=== PATIENT | female | born 1945 | race Caucasian/White ===

== ENCOUNTER → 2017-04-18 13:13 | Outpatient (CLI) | payer MEDICARE, OTHER, SELFPAY ==
--- NOTE | 2017-04-18 13:16 | HPBI_ITS ---
MAMMOGRAPHY - UNILATERAL SCREENING: RIGHT BREAST REASON FOR EXAM: Female, 71 years old. Routine annual screening examination (unilateral). PERTINENT HISTORY: Personal history of breast cancer. Prior left mastectomy and breast reconstruction. TECHNIQUE: Digital unilateral breast kj (3D mammographic acquisition) in the CC and MLO projections. 2-D mediolateral oblique (MLO) and craniocaudad (CC) views of both breasts were obtained. CAD: Full Field Digital Mammography with Computer Added Detection was performed. COMPARISON: Comparison is made with prior study dated April 17, 2016 and April 14, 2015. FINDINGS: Breast Composition: The breasts are heterogeneously dense, which may obscure small masses. There are no dominant masses or suspicious calcifications. Stable benign-appearing right axillary lymph node. No other significant abnormalities are identified. There has been no significant change since the prior study. BI/UNILAT RT SCRN W/CAD IMPRESSION: Stable unilateral screening mammogram. Yearly follow-up mammogram recommended. (A) ASSESSMENT CATEGORY: BIRADS Category 2: Benign. A letter regarding these results will be sent to the patient by the facility within 30 days. Approximately 10% of breast cancers are not detected by mammography. A normal mammogram should not delay biopsy of a clinically suspicious abnormality. [id number] Electronically Signed: Calderon Olivarez MD at 14:29 EST Tel [phone], Service support ,
== END ==
PROVIDERS: Family Provider Family Medicine; PCP Family Medicine; Visit Provider Family Medicine
DX: Z12.31 Encounter for screening mammogram for malignant neoplasm of breast (principal)
CPT/HCPCS: 77061; 77067; G0279

== ENCOUNTER 2017-05-08 11:33 | Day surgery (SDC) | payer MEDICARE, OTHER, SELFPAY ==
--- NOTE | 2017-05-04 12:20 | SDCEKG_ITS ---
Test Reason : PREOP Blood Pressure : / mmHG Vent. Rate : 069 BPM Atrial Rate : 069 BPM P-R Int : 126 ms QRS Dur : 090 ms QT Int : 422 ms P-R-T Axes : -02 042 052 degrees QTc Int : 452 ms Normal sinus rhythm Normal ECG Confirmed by DYLON NICHOLS ([id number]), news copy editor YVES ROBERT ([id number]) on 05/07/2017 1:38:50 PM Referred By: Mason Link Confirmed By:DYLON NICHOLS
[2017-05-04 13:32] LABS: Thyroid Stim Hormone (TSH) 1.16 uIU/mL (0.358-3.74)
--- NOTE | 2017-05-07 22:01 | PCM.HP.BLA ---
History and Physical Date of Admission: 05/08/17 HISTORY OF PRESENT ILLNESS 71 year old woman presents for evaluation for a TBSE. She is concerned about a cutaneous horn lesion on her right lateral forehead that has increased over the last several months and has become more raised in configuration and has developed irregular borders. Denies any drainage or bleeding or trauma. She also has a personal history of left breast cancer and after mastectomy underwent breast reconstruction with a TRAM flap. The left side of the TRAM flap scar in the abdominal wall has developed intermittent pain from previous chronic stitch abscesses. She denies any trauma to her abdominal wall. She had some chronic stitch abscesses excised in this area before in 07/04. 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%, Her2 negative Elevated cholesterol Asthma Osteoarthritis Vitamin D Deficiency UTI's cataracts headaches high triglycerides hypoglycemia acquired absence left breast disproportion reconstructed left breast anemia atelectasis nonhealing surgical wound left abdominal wall seroma lower anterior abdominal wall solar elastosis nasal dorsum solar elastosis central lower lip by the labiomental crease seborrheic keratosis right orthodox painful left TRAM flap abdominal wall scar from chronic stitch abscesses PAST SURGICAL HISTORY Hysterectomy Cholecystectomy Left breast biopsies - multiple in past Achilles tendon replacements Left lower extremity fracture repair with kristy Appendectomy Left hand surgery Left breast stereotactic breast biopsy 04/23/13 cataracts Left breast mastectomy and left axillary sentinel lymph node biopsy by Dr Mercado - 05/16/13 Immediate left breast reconstruction with contralateral unipedicled TRAM flap and reconstruction abdominal wall with Strattice acellular dermal matrix graft (100 cm2) - 05/16/13 intradermal excision 7 mm solar elastosis nasal dorsum and intradermal excision 5 mm solar elastosis central lower lip by the labiomental crease and intradermal excision 5 mm seborrheic keratosis right orthodox - 03/26/14 intradermal excision 6 mm actinic lesion with atypia left ear at ante helical area by triangular fossa and intradermal excision 3 mm actinic lesion with atypia right nasal ala and excision 7 mm actinic lesion with atypia right cheek as an incisional biopsy with 2.5 cm layered closure and excision painful left TRAM flap abdominal wall scar from chronic stitch abscesses with secondary wound closure - 07/13/15 MEDICATIONS: Synthroid. Crestor. Vitamin D. ALLERGIES: Meloxicam. Gemfibrozil. Zostavax. Prednisone. Macrodantin. Dilaudid. Novocaine. Morphine. Penicillin. Sulfa. FAMILY HISTORY Father (biol.) - Has Family History of Heart Disease Mother (biol.) - Has FH Colon Cancer Mother (biol.) - Has FH Diabetes Mother (biol.) - Has FH Hypertension Father (biol.) - Has FH Heart Disease Father (biol.) - Has FH High Cholesterol Brother (full) - Has FH Diabetes Brother (full) - Has FH Heart Disease Brother (full) - Has FH High Cholesterol Sister (full) - Has FH Heart Disease Sister (full) - Has FH High Cholesterol MGF - Has FH Kidney Disease MGM - Has FH Heart Disease negative for skin cancer. FH Arthritis FH High Blood Pressure FH Kidney Disease FH Osteoporosis Mother at age 85 from colon cancer, had diabetes Father had heart disease Brother - diabetes, [place] Sisters (half) x 3 - heart disease No breast or ovarian cancer in family known SOCIAL HISTORY Patient has never smoked. 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 Eyes - has cataracts. Denies glaucoma. ENT - Denies nasal congestion and sore throat. Cardiovascular - Denies chest pain or discomfort, fatigue, lightheadedness and shortness of breath with exertion. Respiratory - Denies cough and shortness of breath. Gastrointestinal - Denies nausea, vomiting, diarrhea, constipation and bloody stools. Genitourinary - Denies blood in urine, urinary frequency, other abnormal vaginal bleeding and pelvic pain. Musculoskeletal - Denies joint pain, back pain, stiffness and muscle weakness. Has arthritis. Skin - has enlarging cutaneous horn lesion right lateral forehead. Has painful left TRAM flap abdominal wall scar contour deformity from chronic stitch abscesses. Neuro - Denies headaches and weakness. Psych - Denies anxiety and depression. Endocrine - Denies excessive urination and excessive thirst. has history of left breast cancer. Hematologic - Denies bleeding and abnormal bruising. PHYSICAL EXAMINATION General - well developed, well nourished, in no acute distress. Head - normocephalic and atraumatic. On the right lateral forehead is a cutaneous horn lesion that measures 4 mm.. It is raised in configuration with irregular borders. No ulceration. Lesion is nontender. Eyes - PERRL/EOM intact, conjunctiva and sclera clear. Ears - no suspicious lesions noted. Nose - no suspicious lesions noted at this time. Mouth - No suspicious lesions noted Neck - no masses, thyromegaly, or abnormal cervical nodes. No suspicious lesions noted Chest wall - No suspicious lesions noted Breasts - The left breast is soft and shows a well healed TRAM flap. There is a small area of firmness medially probably from fat necrosis from the TRAM flap. It continues to get softer and smaller than at her last visit. The left breast reconstruction is larger than the right breast. Right breast shows no masses. Slight Stage II ptosis present. Distance from the midclavicular line on the right to the nipple is 26 cm and from the nipple to the inframammary fold is 7 cm. The nipple areolar complex diameter is 5 cm. No inframammary intertrigo seen. No breast masses palpable on the right. No axillary adenopathy. Lungs - clear bilaterally to auscultation. Heart - regular rate and rhythm. Abdomen - normal bowel sounds; no hepatosplenomegaly no ventral,umbilical hernias or masses noted. has horizontal TRAM flap scar. on the left TRAM flap scar are painful nodules from chronic stitch abscesses. No purulent drainage. Measures 6 cm. Pulses - pulses normal in all 4 extremities. Extremities - no clubbing, cyanosis, edema, or deformity noted with normal full range of motion of all joints. No suspicious lesions noted Neuro - cranial nerves II-XII grossly intact. Skin - no rashes. Cervical nodes - no significant adenopathy. Axillary nodes - no significant adenopathy. Inguinal - no significant adenopathy. Psych - alert and cooperative; normal mood and affect; normal attention span and concentration. ASSESSMENT 1. 4 mm lesion cutaneous horn lesion right lateral forehead. 2. 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 3. Personal history of left breast cancer. 4. Disproportion reconstructed left breast. PLAN Recommend excision of this lesion right lateral forehead which can be done under local anesthesia and IV sedation. Will send the lesion to Pathology for analysis to rule out carcinoma. The initial biopsy will be full thickness since there is a cutaneous horn component to the lesion and a shave biopsy may miss a focus of carcinoma at the base. Reconstruction will be with skin graft or skin flaps. That will be determined by the frozen section. If carcinoma is present, then further excision will be done with probable skin grafting at that time. Also will excise the painful left TRAM flap abdominal wall scar contour deformity due to chronic stitch abscess granulomas with secondary wound closure. Will send tissue to Microbiology for culture. A positive culture will necessitate antibiotic therapy. If more chronic stitch abscess granulomas are found, I may decide to leave the wound open and pack with the VAC and allow the wound to heal in secondarily. Surgery will be done under local anesthesia and IV sedation on an outpatient basis. The patient was informed of the risks and complications of the procedure including alternatives to surgery. These were discussed with the patient personally. The patient voices understanding and wishes to proceed. Some of the risks and complications were included in a form from the [employer].
[2017-05-08] VITALS (10 sets, daily range): BP systolic 94–179; BP diastolic 68–98; PULSE 63–80; RESP 12–18; TEMP 36.2–37.2; O2SAT 96–100; BMI 25.5
--- NOTE | 2017-05-08 13:25 | SCAR_PTH ---
PATIENT: DEEJAY WOLF [place] [facility] [id number] AGE/SX: 71/F ROOM: RE05/08/[address]: Dr. Mason Link MD : [id number] BED: DIS: 05/09/2017 SPEC #: [id number] RECD: 05/08/17 16:14 STATUS: MARSHALL IRMA #: [id number] SHIRLEY: 05/08/17 13:[address]: Mason Link DEPT: SURGICAL PATHOLOGY RECD BY: Elisabeth Carrasco ENTERED: 05/09/17 11:11 SP TYPE: Scar OTHR DR: MD Dr. Jesus Donovan MD Tissues: CICATRIX/SCAR Procedures: Surgery Specimen Level III HEADER OPERATION: Excision painful left tram flap abdominal wall scar PRE-OP DIAGNOSIS: Painful left abdominal tram scar TISSUE SUBMITTED: Soft tissue, painful tram scar MICROSCOPIC DIAGNOSIS Soft tissue, painful scar: Skin and underlying adipose tissue with focal dermal fibrosis, consistent with scar. ERICA:smith 05/10/17 MICROSCOPIC DESCRIPTION Slides are reviewed. GROSS DESCRIPTION Received in fixative is one container labeled with the patient's name and designated soft tissue. The specimen consists of two irregular fragments of pace-yellow fibrofatty tissue ranging in size from 6 to 8 cm in greatest dimension. The largest fragment contains an ellipse of unremarkable pace skin measuring 8 x 1 cm. No cutaneous lesions are identified. Sections reveal yellow, fatty cut surfaces without areas of cyst formation, necrosis or myxoid change. Drawbench Operator Helper sections from both fragments are submitted in two cassettes as follows: 1 ? sections from largest fragment, 2 ? operations support representative sections from the smaller fragment. / AM:smith 05/09/17 TC:4 CPT: 15958
[2017-05-08] MEDS: Mupirocin Ointment 22gm Tube 1 APPLIC (13:30)
[2017-05-08] MEDS: Clindamycin 900 MG/50 ML BAG 75 MG IV (13:45)
[2017-05-08] MEDS: Bupivacaine Mpf 0.5% 30 ML VIAL (14:20)
--- NOTE | 2017-05-08 14:34 | PCM.IMDPSTOP ---
Immediate Post-Op Note Date of Procedure: 05/08/17 Primary Surgeon/Physician: Mason Link port engineer: None Pre-Operative Diagnosis: 1. 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 2. Personal history of left breast cancer. 3. Disproportion reconstructed left breast. Post-Operative Diagnosis: Same. 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 Description of Surgical Findings:: 71 year old woman presents for evaluation for a TBSE. She is concerned about a cutaneous horn lesion on her right lateral forehead that has increased over the last several months and has become more raised in configuration and has developed irregular borders. Denies any drainage or bleeding or trauma. She also has a personal history of left breast cancer and after mastectomy underwent breast reconstruction with a TRAM flap. The left side of the TRAM flap scar in the abdominal wall has developed intermittent pain from previous chronic stitch abscess granulomas. She denies any trauma to her abdominal wall. She had some chronic stitch abscesses excised in this area before in 07/04. The patient stated the lesion right lateral forehead has come off and is smooth. She would like to hold off on surgery on this lesion for now. If it comes back, will reassess at that time for excision. Today the patient underwent surgical preparation left lateral abdominal wall TRAM flap scar contour deformity with excisional debridement painful chronic stitch abscess granulomas (48 cm2). Size of defect left lateral abdominal wall area - 12 x 4 x 2 cm. Estimated Blood Loss: 25 ml. Specimen's removed: Left lateral abdominal wall TRAM flap scar contour deformity tissue to Pathology and Microbiology. Drains: None. Type of Anesthesia:: General - Admit VTE Documentation VTE Present on Admission: No VTE Mechan Device Prophylaxis: SCD's VTE Pharm Prophylaxis ordered?: Yes
--- NOTE | 2017-05-08 14:40 | OP.PN_ITS ---
Immediate Post-Op Note Date of Procedure: 05/08/17 Primary Surgeon/Physician: Mason Link production line assembler: None Pre-Operative Diagnosis: 1. 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 2. Personal history of left breast cancer. 3. Disproportion reconstructed left breast. Post-Operative Diagnosis: Same. 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 Description of Surgical Findings:: 71 year old woman presents for evaluation for a TBSE. She is concerned about a cutaneous horn lesion on her right lateral forehead that has increased over the last several months and has become more raised in configuration and has developed irregular borders. Denies any drainage or bleeding or trauma. She also has a personal history of left breast cancer and after mastectomy underwent breast reconstruction with a TRAM flap. The left side of the TRAM flap scar in the abdominal wall has developed intermittent pain from previous chronic stitch abscess granulomas. She denies any trauma to her abdominal wall. She had some chronic stitch abscesses excised in this area before in . The patient stated the lesion right lateral forehead has come off and is smooth. She would like to hold off on surgery on this lesion for now. If it comes back, will reassess at that time for excision. Today the patient underwent surgical preparation left lateral abdominal wall TRAM flap scar contour deformity with excisional debridement painful chronic stitch abscess granulomas (48 cm2). Size of defect left lateral abdominal wall area - 12 x 4 x 2 cm. Estimated Blood Loss: 25 ml. Specimen's removed: Left lateral abdominal wall TRAM flap scar contour deformity tissue to Pathology and Microbiology. Drains: None. Type of Anesthesia:: General - Admit VTE Documentation VTE Present on Admission: No VTE Mechan Device Prophylaxis: SCD's VTE Pharm Prophylaxis ordered?: Yes
[2017-05-08] MEDS: Lactated Ringers 1,000 ML 60 ML IV (14:59)
--- NOTE | 2017-05-08 20:53 | PCM.OPRPT ---
Report of Operation Date of Procedure: 05/08/17 Pre-Operative Diagnosis: 1. 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 2. Personal history of left breast cancer. 3. Disproportion reconstructed left breast. Post-Operative Diagnosis: Same. 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 Description of Surgical Findings:: 71 year old woman presents for evaluation for a TBSE. She is concerned about a cutaneous horn lesion on her right lateral forehead that has increased over the last several months and has become more raised in configuration and has developed irregular borders. Denies any drainage or bleeding or trauma. She also has a personal history of left breast cancer and after mastectomy underwent breast reconstruction with a TRAM flap. The left side of the TRAM flap scar in the abdominal wall has developed intermittent pain from previous chronic stitch abscess granulomas. She denies any trauma to her abdominal wall. She had some chronic stitch abscesses excised in this area before in 07/04. The patient stated the lesion right lateral forehead has come off and is smooth. She would like to hold off on surgery on this lesion for now. If it comes back, will reassess at that time for excision. The patient was informed of the risks and complications of the procedure including alternatives to surgery. These were discussed with the patient personally. The patient voices understanding and wishes to proceed. Some of the risks and complications were included in a form from the [employer]. Size of defect left lateral abdominal wall area - 12 x 4 x 2 cm. aviation consultant: None Type of Anesthesia:: General Specimen's removed: Left lateral abdominal wall TRAM flap scar contour deformity tissue to Pathology and Microbiology. Drains: None. Estimated Blood Loss (mL): 25 ml. Description of Procedure: Patient was taken to OR in supine position and placed under general anesthesia. Her abdominal wall was prepped and draped in the usual fashion. SCD's were placed for DVT prophylaxis. Perioperative antibiotics were given intravenously. Using xylocaine with epinephrine, the left lateral TRAM flap scar was infiltrated. After waiting 5 minutes for the anesthetic to take effect, I excised the left lateral abdominal wall TRAM flap scar contour deformity where the painful bumpy scar tissue was located down through the subcutaneous tissue until the abdominal wall fascia was seen. I palpated the subcutaneous tissue and I was able to palpate 3-4 small firm pellets indicative of chronic stitch abscess granulomas. This could certainly explain the patient's painful symptomatology. Some of this tissue was sent to Pathology for analysis to rule out carcinoma. Some of the tissue was sent to Microbiology for culture. Because of the presence of these chronic stitch abscess granulomas, it was felt that closing the wound with sutures may lead to recurrence of her painful symptomatology. Therefore it was decided to leave the wound open and proceed with postop wound care with the VAC to allow healing from the inside out. The size of the defect after excisional debridement was 12 x 4 x 2 cm or 48 cm2. Hemostasis was obtained with electrocautery. The wound was irrigated with saline. The wound was then packed with Mepitel nonadherent dressing followed by Kerlix gauze and Betadine and dry Kerlix gauze and ABD pads and tape for a compression dressing. Patient tolerated the procedure well and was sent to PACU in satisfactory condition. She will be sent upstairs for surgical observation overnight stay in the hospital. The VAC will be placed tomorrow. Once the VAC is approved and she is tolerating po analgesia, she can go home with Home Health assistance for the VAC changes. She would be sent home on antibiotics and pain medication. She will [facility]. A positive culture may necessitate antibiotic modification. Grafts/Implants Used: None. - Complications None. - Admit VTE Documentation VTE Present on Admission: No VTE Mechan Device Prophylaxis: SCD's VTE Pharm Prophylaxis ordered?: Yes Code Visit Surgery Charges CPT - 97652 ICD-10 - Z85.3, S31.109A, T75.89xS
[2017-05-08] MEDS: Clindamycin 600 MG/50 ML BAG 100 MG IV (21:31)
[2017-05-08] MEDS: Docusate Sodium 100 MG Capsule PO (21:31)
[2017-05-08] MEDS: oxyCODONE 5 MG Tablet 10 MG PO (23:50)
--- NOTE | 2017-05-09 01:00 | NURSING ---
Pt called out and states that she is having a reaction to the pain pill that she took. I informed her nurse and then went in the room to check on her. I visualized pt itching skin and hair. No rash noted. Pt states she feels like she has worms all over her. I explained that I did not have anything to give her for itching. I could give her valium to help calm her nerves which may help the itching. She did not want valium. I told her that I can call Dr Link to get her something for itching. She states Do NOT call him. I offered lotion which she refused. Reported all the findings to her nurse Nikki and she went in the room to assess her again.
[2017-05-09 01:05] VITALS: BP 186/82; PULSE 77; RESP 18; TEMP 37; O2SAT 99
--- NOTE | 2017-05-09 01:08 | NURSING ---
PT REPORT ITCHING FEELS LIKE WORMS CRAWLING OVER ME. ASSESSMENT NEGATIVE. DISCUSSED WITH PT OVER MEDICATIONS OPTIONS. RN NOTIFIED PT NEED TO CONTACT PHYSICIAN. PT REFUSED AND VERY INCENT NOT TO CALL DR BURGESS AT THIS TIME. WILL CONTINUE TO MONITOR PT.
[2017-05-09] MEDS: Lactated Ringers 1,000 ML 60 ML IV (05:50)
[2017-05-09] MEDS: Enoxaparin 30 MG/0.3 ML Syringe SC (05:50)
[2017-05-09] MEDS: Clindamycin 600 MG/50 ML BAG 100 MG IV ×2 (05:50→14:49)
[2017-05-09 05:51] VITALS: BP 164/82; PULSE 77; RESP 18; TEMP 36.8; O2SAT 99
[2017-05-09 06:51] LABS: Hematocrit 40.3 % (37-47); Hemoglobin 12.8 g/dl (12.0-15.0); Mean Corp Hgb Conc 31.8 g/gl (32-36); Mean Corpuscular Hgb 29.9 pg (27.0-32.0); Mean Corpuscular Volume 94.2 fL (81-99); Mean Platelet Vol. 12.8 fl (6.2-12.0); Platelet Count 198 K/mm3 (150-450); RBC Distribution Width CV 13.3 % (11.6-14.6); RBC Distribution Width SD 44.2 fl (35.1-43.9); Red Blood Count 4.28 M/mm3 (4.2-5.4); White Blood Count 7.6 K/mm3 (4.4-11.0)
[2017-05-09 06:55] LABS: Scan Indicated on CBC? Y/N NO
[2017-05-09 07:17] LABS: Anion Gap 7 (5-15); BUN 20 mg/dL (7-18); BUN/Creat Ratio 23.7 RATIO (10-20); Calcium,Total 8.9 mg/dL (8.5-10.1); Chloride 106 mmol/L (98-107); Creatinine, Serum 0.84 mg/dL (0.55-1.02); EST Glomerular Filtration Rate 71 mL/min (>60); Est Glom Filt Rate - Afr Amer 85 mL/min (>60); Glucose 98 mg/dL (74-106); Potassium 4.2 mmol/L (3.5-5.1); Prealbumin 16.4 mg/dL (20.0-40.0); Sodium Level 140 mmol/L (136-145)
[2017-05-09] MEDS: Docusate Sodium 100 MG Capsule PO (08:22)
[2017-05-09] MEDS: oxyCODONE 5 MG Tablet 10 MG PO (09:12)
--- NOTE | 2017-05-09 09:25 | NURSING ---
wound photo: left lower abdomen
--- NOTE | 2017-05-09 09:26 | CASEMGMT ---
Addendum entered by Rhiannon Smith 05/09/17 09:36: Received call from Lizett arteaga for [facility] and they are able to accept the patient. RN CM updated wound nurse and patient. Original Note: Received referral from wound nurse John López RN that patient will need HHC for wound vac care and states that patient has had [facility] in the past. Referral made to [facility] and am awaiting call back.
[2017-05-09 10:11] VITALS: BP 145/74; PULSE 75; RESP 16; TEMP 37.2; O2SAT 97
--- NOTE | 2017-05-09 15:20 | PN.SURG_ITS ---
Subjective: Postop #1 Patient is resting comfortably. VAC applied today. - Physical Exam General: Alert, Oriented x3 HEENT: PERRLA, EOMI Neck: Supple Lungs: Clear to auscultation Cardiovascular: Regular rate, Regular Rhythm Abdomen: Soft, Non-Distended Skin: Ulcer/ Wound - left lateral abdominal wall wound is stable. No bleeding noted. VAC applied. Neurological: Cranial nerves II-XII grossly intact Psych/Mental Status: Normal Affect, Appropriate Vital Signs Temp Pulse Resp BP Pulse Ox 98.9 F 75 16 145/74 H 97 05/09/17 10:11 05/09/17 10:11 05/09/17 10:11 05/09/17 10:11 05/09/17 10:11 Oxygen Delivery Method Room Air Weight: 173 lb 4.533 oz Body Mass Index (BMI) 25.5 Intake and Output for Last 24 Hours 05/07/17 05/08/17 05/09/17 23:59 23:59 23:59 Intake Total 2826 / 2826 1692 / 1692 Balance 2826 / 2826 1692 / 1692 Microbiology Past 72 Hours 05/08/17 14:00 Gram Stain - Final Tissue - Abdominal Wound Culture - Preliminary No growth-Final to follow Laboratory Tests Past 24 Hrs 05/09/17 05/09/17 06:18 06:18 WBC 7.6 RBC 4.28 Hgb 12.8 Hct 40.3 MCV 94.2 MCH 29.9 MCHC 31.8 L RDW 13.3 RDW Differential 44.2 H Plt Count 198 MPV 12.8 H Sodium 140 Potassium 4.2 Chloride 106 Carbon Dioxide 27.0 Anion Gap 7 BUN 20 H Creatinine 0.84 Estim Creat Clear Calc 64.20 Est GFR (MDRD) Af Amer 85 Est GFR (MDRD) Non-Af 71 BUN/Creatinine Ratio 23.7 H Glucose 98 Calcium 8.9 Prealbumin 16.4 L Medical Necessity - Tobacco Use Smoking Status: Never smoker Assessment/Plan 1. 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 2. Personal history of left breast cancer. 3. Disproportion reconstructed left breast. 4. 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 VAC applied today. To be changed three times per week at 150 mmHg continuous suction. Home Health to assist. Operative culture negative thus far. Will send home on Cleocin. Prealbumin was 16.4. Encourage nutritional supplementation with protein to help the healing process. Discharge home today. Followup office one week, 05/17/17. Wrote script for Cleocin. Wrote scripts for Percocet for pain (50 tabs) and for Valium for spasm (30 tabs) . Wrote scripts for Phenergan for nausea (30 tabs) and a refill and for Colace for constipation (60 tabs).
--- NOTE | 2017-05-09 15:29 | PCM.DC ---
You will use the following diet at home:: No restrictions, Other - encourage nutritional supplementation with protein to help the healing process. Discharge Activity: May not drive while taking narcotic pain medications., May Shower - on the days the vac is changed. Return to work on:: 06/04/17 - tentative May shower in (days): 2 - may shower on the days the vac is changed. May resume sexual activity in: No Restrictions Weight Bearing Status: Weight bearing as tolerated Call your doctor if your incision/area has: Continuous Slow Oozing, Sudden Increased Bleeding, Increased Pain/ Swelling, Increased Redness, Foul Smelling Discharge, Swelling at the incision site Call your doctor if you observe: Fever of 101 or Higher, Coldness, Increased Pain, Shortness of breath, Chest pain, Calf discomfort, Uncontrolled pain Suture Line Care: - - vac changes three times per week at 150 mmHg continuous suction. Change Dressing in (Days):: 2 - vac changes three times per week Cleanse incision/area with: Soap & Water - may cleanse the wound with soap and water on the days the vac is changed., - - may shower on the days the vac is changed. Additional Dressing/Incision Instructions:: Home Health to assist with vac changes three times per week at 150 mmHg continuous suction. May wash the wound with soap and water at the time of the vac dressing change. Allergies/Adverse Reactions: Allergies erythromycin base [Erythromycin Base] Allergy (Severe, Verified 05/02/17 13:04) Hives Penicillins Allergy (Severe, Verified 05/02/17 13:04) Hives procaine HCl [From Novocain] Allergy (Severe, Verified 05/02/17 13:04) Hives pt states was told since child not to take does not know reaction zoster vaccine live [From Zostavax (PF)] Allergy (Severe, Verified 05/02/17 13:04) Anaphylaxis gemfibrozil Adverse Reaction (Severe, Verified 05/02/17 13:04) Nausea/Vom/Diarrhea GI upset, Nausea and Vomitting hydromorphone HCl [From Dilaudid] Adverse Reaction (Severe, Verified 05/02/17 13:04) Vomiting meloxicam Adverse Reaction (Severe, Verified 05/02/17 13:04) Vomiting morphine Adverse Reaction (Severe, Verified 05/02/17 13:04) Vomiting nitrofurantoin macrocrystalline [From Macrodantin] Adverse Reaction (Severe, Verified 05/02/17 13:04) Vomiting prednisone Adverse Reaction (Severe, Verified 05/02/17 13:04) psychotic episodes Sulfa (Sulfonamide Antibiotics) Adverse Reaction (Severe, Verified 05/02/17 13:04) Vomiting fentanyl Adverse Reaction (Verified 05/02/17 13:28) Other SLOW TO WAKE UP AFTER SURGERY BAND AID Allergy (Uncoded 05/02/17 13:23) Rash Medications to take at Discharge Rosuvastatin Calcium [Crestor] 40 mg PO QHS 05/08/13 Levothyroxine Sodium [Levoxyl] 50 mcg PO DAILY 03/26/14 Cholecalciferol (Vitamin D3) [Vitamin D3] 3,000 unit PO DAILY 05/02/17 Clindamycin HCl [Cleocin] 300 mg PO TID #15 cap 05/09/17 Diazepam [Valium] 5 mg PO 4X/DAY PRN PRN #30 tab 05/09/17 Docusate Sodium [Colace] 100 mg PO BID #60 cap 05/09/17 Oxycodone HCl/Acetaminophen [Percocet 5/325] 1 - 2 tab PO 4X/DAY PRN PRN 6 Days #50 tab 05/09/17 proMETHazine tablet [Phenergan tablet] 25 mg PO 4X/DAY PRN PRN #30 tab 05/09/17 The following prescriptions were given: Diazepam [Valium] 5 mg PO 4X/DAY PRN PRN #30 tab PRN Reason: Spasms Oxycodone HCl/Acetaminophen [Percocet 5/325] 1 - 2 tab PO 4X/DAY PRN PRN 6 Days #50 tab PRN Reason: Pain proMETHazine tablet [Phenergan tablet] 25 mg PO 4X/DAY PRN PRN #30 tab PRN Reason: NAUSEA/VOMITING Docusate Sodium [Colace] 100 mg PO BID #60 cap Clindamycin HCl [Cleocin] 300 mg PO TID #15 cap Primary Care Physician: Jesus Peters MD [Primary Care Provider] - Please Follow Up With: Mason Link MD - call [phone] if any questions. When: 05/17/17 at 200pm Proposed Discharge Date: 05/09/17
--- NOTE | 2017-05-09 15:34 | DCINST_ITS ---
You will use the following diet at home:: No restrictions, Other - encourage nutritional supplementation with protein to help the healing process. Discharge Activity: May not drive while taking narcotic pain medications., May Shower - on the days the vac is changed. Return to work on:: 06/04/17 - tentative May shower in (days): 2 - may shower on the days the vac is changed. May resume sexual activity in: No Restrictions Weight Bearing Status: Weight bearing as tolerated Call your doctor if your incision/area has: Continuous Slow Oozing, Sudden Increased Bleeding, Increased Pain/ Swelling, Increased Redness, Foul Smelling Discharge, Swelling at the incision site Call your doctor if you observe: Fever of 101 or Higher, Coldness, Increased Pain, Shortness of breath, Chest pain, Calf discomfort, Uncontrolled pain Suture Line Care: - - vac changes three times per week at 150 mmHg continuous suction. Change Dressing in (Days):: 2 - vac changes three times per week Cleanse incision/area with: Soap & Water - may cleanse the wound with soap and water on the days the vac is changed., - - may shower on the days the vac is changed. Additional Dressing/Incision Instructions:: Home Health to assist with vac changes three times per week at 150 mmHg continuous suction. May wash the wound with soap and water at the time of the vac dressing change. Allergies/Adverse Reactions: Allergies erythromycin base [Erythromycin Base] Allergy (Severe, Verified 05/02/17 13:04) Hives Penicillins Allergy (Severe, Verified 05/02/17 13:04) Hives procaine HCl [From Novocain] Allergy (Severe, Verified 05/02/17 13:04) Hives pt states was told since child not to take does not know reaction zoster vaccine live [From Zostavax (PF)] Allergy (Severe, Verified 05/02/17 13: 04) Anaphylaxis gemfibrozil Adverse Reaction (Severe, Verified 05/02/17 13:04) Nausea/Vom/Diarrhea GI upset, Nausea and Vomitting hydromorphone HCl [From Dilaudid] Adverse Reaction (Severe, Verified 05/02/17 13 :04) Vomiting meloxicam Adverse Reaction (Severe, Verified 05/02/17 13:04) Vomiting morphine Adverse Reaction (Severe, Verified 05/02/17 13:04) Vomiting nitrofurantoin macrocrystalline [From Macrodantin] Adverse Reaction (Severe, Verified 05/02/17 13:04) Vomiting prednisone Adverse Reaction (Severe, Verified 05/02/17 13:04) psychotic episodes Sulfa (Sulfonamide Antibiotics) Adverse Reaction (Severe, Verified 05/02/17 13: 04) Vomiting fentanyl Adverse Reaction (Verified 05/02/17 13:28) Other SLOW TO WAKE UP AFTER SURGERY BAND AID Allergy (Uncoded 05/02/17 13:23) Rash Medications to take at Discharge Rosuvastatin Calcium [Crestor] 40 mg PO QHS 05/08/13 Levothyroxine Sodium [Levoxyl] 50 mcg PO DAILY 03/26/14 Cholecalciferol (Vitamin D3) [Vitamin D3] 3,000 unit PO DAILY 05/02/17 Clindamycin HCl [Cleocin] 300 mg PO TID #15 cap 05/09/17 Diazepam [Valium] 5 mg PO 4X/DAY PRN PRN #30 tab 05/09/17 Docusate Sodium [Colace] 100 mg PO BID #60 cap 05/09/17 Oxycodone HCl/Acetaminophen [Percocet 5/325] 1 - 2 tab PO 4X/DAY PRN PRN 6 Days #50 tab 05/09/17 proMETHazine tablet [Phenergan tablet] 25 mg PO 4X/DAY PRN PRN #30 tab 05/09/17 The following prescriptions were given: Diazepam [Valium] 5 mg PO 4X/DAY PRN PRN #30 tab PRN Reason: Spasms Oxycodone HCl/Acetaminophen [Percocet 5/325] 1 - 2 tab PO 4X/DAY PRN PRN 6 Days #50 tab PRN Reason: Pain proMETHazine tablet [Phenergan tablet] 25 mg PO 4X/DAY PRN PRN #30 tab PRN Reason: NAUSEA/VOMITING Docusate Sodium [Colace] 100 mg PO BID #60 cap Clindamycin HCl [Cleocin] 300 mg PO TID #15 cap Primary Care Physician: Jesus Peters MD [Primary Care Provider] - Please Follow Up With: Mason Link MD - call [phone] if any questions. When: 05/17/17 at 200pm Proposed Discharge Date: 05/09/17
--- NOTE | 2017-05-09 15:34 | PCM.WORK.EX ---
Work/School Excuse Work/School Excuse for:: Patient Please excuse this person from:: Work From: 05/08/17 through: 06/04/17 - tentative
[2017-05-09 15:40] VITALS: BP 152/75; PULSE 77; RESP 16; TEMP 37.1; O2SAT 95
--- NOTE | 2017-05-09 21:54 | OP.PCM_ITS ---
Report of Operation Date of Procedure: 05/08/17 Pre-Operative Diagnosis: 1. 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 2. Personal history of left breast cancer. 3. Disproportion reconstructed left breast. Post-Operative Diagnosis: Same. 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 Description of Surgical Findings:: 71 year old woman presents for evaluation for a TBSE. She is concerned about a cutaneous horn lesion on her right lateral forehead that has increased over the last several months and has become more raised in configuration and has developed irregular borders. Denies any drainage or bleeding or trauma. She also has a personal history of left breast cancer and after mastectomy underwent breast reconstruction with a TRAM flap. The left side of the TRAM flap scar in the abdominal wall has developed intermittent pain from previous chronic stitch abscess granulomas. She denies any trauma to her abdominal wall. She had some chronic stitch abscesses excised in this area before in . The patient stated the lesion right lateral forehead has come off and is smooth. She would like to hold off on surgery on this lesion for now. If it comes back, will reassess at that time for excision. The patient was informed of the risks and complications of the procedure including alternatives to surgery. These were discussed with the patient personally. The patient voices understanding and wishes to proceed. Some of the risks and complications were included in a form from the [employer]. Size of defect left lateral abdominal wall area - 12 x 4 x 2 cm. solid tire finisher: None Type of Anesthesia:: General Specimen's removed: Left lateral abdominal wall TRAM flap scar contour deformity tissue to Pathology and Microbiology. Drains: None. Estimated Blood Loss (mL): 25 ml. Description of Procedure: Patient was taken to OR in supine position and placed under general anesthesia. Her abdominal wall was prepped and draped in the usual fashion. SCD's were placed for DVT prophylaxis. Perioperative antibiotics were given intravenously. Using xylocaine with epinephrine, the left lateral TRAM flap scar was infiltrated. After waiting 5 minutes for the anesthetic to take effect , I excised the left lateral abdominal wall TRAM flap scar contour deformity where the painful bumpy scar tissue was located down through the subcutaneous tissue until the abdominal wall fascia was seen. I palpated the subcutaneous tissue and I was able to palpate 3-4 small firm pellets indicative of chronic stitch abscess granulomas. This could certainly explain the patient's painful symptomatology. Some of this tissue was sent to Pathology for analysis to rule out carcinoma. Some of the tissue was sent to Microbiology for culture. Because of the presence of these chronic stitch abscess granulomas, it was felt that closing the wound with sutures may lead to recurrence of her painful symptomatology. Therefore it was decided to leave the wound open and proceed with postop wound care with the VAC to allow healing from the inside out. The size of the defect after excisional debridement was 12 x 4 x 2 cm or 48 cm2. Hemostasis was obtained with electrocautery. The wound was irrigated with saline. The wound was then packed with Mepitel nonadherent dressing followed by Kerlix gauze and Betadine and dry Kerlix gauze and ABD pads and tape for a compression dressing. Patient tolerated the procedure well and was sent to PACU in satisfactory condition. She will be sent upstairs for surgical observation overnight stay in the hospital. The VAC will be placed tomorrow. Once the VAC is approved and she is tolerating po analgesia, she can go home with Home Health assistance for the VAC changes. She would be sent home on antibiotics and pain medication. [facility]. A positive culture may necessitate antibiotic modification. Grafts/Implants Used: None. - Complications None. - Admit VTE Documentation VTE Present on Admission: No VTE Mechan Device Prophylaxis: SCD's VTE Pharm Prophylaxis ordered?: Yes Code Visit Surgery Charges CPT - 48548 ICD-10 - Z85.3, S31.109A, T75.89xS
== END 2017-05-09 15:35 | disposition home or self-care (01) ==
LOC: SDC 11:34 → AC 11:35 → MS3 15:05
PROVIDERS: Family Provider Family Medicine; PCP Family Medicine; Visit Provider Surgery
PROC: (CPT 11042; principal; 2017-05-08 13:15)
DX: L90.5 Scar conditions and fibrosis of skin (principal); Z85.3 Personal history of malignant neoplasm of breast; Z90.12 Acquired absence of left breast and nipple; N65.1 Disproportion of reconstructed breast; E78.00 Pure hypercholesterolemia, unspecified; J45.909 Unspecified asthma, uncomplicated; M19.90 Unspecified osteoarthritis, unspecified site; E55.9 Vitamin D deficiency, unspecified; L82.1 Other seborrheic keratosis; L02.213 Cutaneous abscess of chest wall; Z79.899 Other long term (current) drug therapy; L85.8 Other specified epidermal thickening; T81.89XA Other complications of procedures, not elsewhere classified, initial encounter; Y83.8 Other surgical procedures as the cause of abnormal reaction of the patient, or of later complication, without mention of misadventure at the time of the procedure; E07.9 Disorder of thyroid, unspecified
CPT/HCPCS: 00400; 11042; 11045 ×2; 36415; 80048; 84134; 84443; 85027; 87070; 87075; 87102; 87205; 87206; 88304; 93005; J7120; J2405

== ENCOUNTER → 2017-06-22 15:07 | Outpatient (CLI) | payer MEDICARE, OTHER, SELFPAY ==
--- NOTE | 2017-06-22 15:11 | RAD_ITS ---
STUDY: X-RAY - RIGHT HAND REASON FOR EXAM: Female, 71 years old. Right hand smash injury of the fifth metacarpal TECHNIQUE: 3 view(s) of the hand. COMPARISON: None. FINDINGS: No acute fracture or dislocation. Age-related degenerative changes. Prominent degenerative change at the first carpometacarpal joint. Normal surrounding soft tissues RAD/Hand Min 3 Views IMPRESSION: No acute finding Electronically Signed: Jeremiah Mckeon DO at 17:32 EDT Tel , Service support ,
== END ==
PROVIDERS: Family Provider Family Medicine; PCP Family Medicine; Visit Provider Family Medicine
DX: M79.641 Pain in right hand (principal)
CPT/HCPCS: 73130

== ENCOUNTER → 2017-07-05 08:49 | Outpatient (CLI) | payer MEDICARE, OTHER, SELFPAY ==
[2017-07-05 11:51] LABS: Cholesterol 280 mg/dL (200); High Density Lipoprotein 44 mg/dL; Thyroid Stim Hormone (TSH) 1.47 uIU/mL (0.358-3.74); Triglycerides 118 mg/dL; Very Low Density Lipoprotein 24 mg/dL (5-40)
== END ==
PROVIDERS: Family Provider Family Medicine; PCP Family Medicine; Visit Provider Family Medicine
DX: E78.5 Hyperlipidemia, unspecified (principal); E03.9 Hypothyroidism, unspecified
CPT/HCPCS: 36415; 80061; 84443

== ENCOUNTER → 2017-09-27 07:29 | Outpatient (CLI) | payer MEDICARE, OTHER, SELFPAY ==
[2017-09-27 08:58] LABS: Hemoglobin A1c 5.6 % (4.2-6.3)
[2017-09-27 09:00] LABS: Cholesterol 266 mg/dL (200); High Density Lipoprotein 47 mg/dL; Triglycerides 152 mg/dL; Very Low Density Lipoprotein 30 mg/dL (5-40)
== END ==
PROVIDERS: Family Provider Family Medicine; PCP Family Medicine; Visit Provider Family Medicine
DX: E78.5 Hyperlipidemia, unspecified (principal); Z79.899 Other long term (current) drug therapy
CPT/HCPCS: 36415; 80061; 83036

== ENCOUNTER → 2017-11-10 07:08 | Outpatient (CLI) | payer MEDICARE, OTHER, SELFPAY ==
[2017-11-10 08:37] LABS: ALB/GLOB Ratio 0.8 RATIO (0.9-2.4); AST(SGOT) 20 U/L (15-37); Alanine Aminotransfer ALT/SGPT 22 U/L (13-56); Albumin, Serum 3.4 g/dL (3.2-5.0); Alkaline Phosphatase 105 U/L (45-117); Anion Gap 8 (5-15); BUN 14 mg/dL (7-18); BUN/Creat Ratio 15.7 RATIO (10-20); Chloride 107 mmol/L (98-107); Cholesterol 239 mg/dL (200); Creatinine, Serum 0.89 mg/dL (0.55-1.02); EST Glomerular Filtration Rate 66 mL/min (>60); Est Glom Filt Rate - Afr Amer 80 mL/min (>60); Globulin 4.1 g/dL (2.2-4.2); Glucose 94 mg/dL (74-106); High Density Lipoprotein 50 mg/dL; Potassium 4.2 mmol/L (3.5-5.1); Protein, Total 7.5 g/dL (6.4-8.2); Sodium Level 142 mmol/L (136-145); Triglycerides 169 mg/dL; Very Low Density Lipoprotein 34 mg/dL (5-40)
== END ==
PROVIDERS: Family Provider Family Medicine; PCP Family Medicine; Visit Provider Family Medicine
DX: E78.5 Hyperlipidemia, unspecified (principal)
CPT/HCPCS: 36415; 80053; 80061

== ENCOUNTER → 2018-03-16 09:10 | Outpatient (CLI) | payer MEDICARE, OTHER, SELFPAY ==
[2018-03-16 10:33] LABS: Thyroid Stim Hormone (TSH) 1.68 uIU/mL (0.358-3.74)
[2018-03-16 11:11] LABS: ALB/GLOB Ratio 0.9 RATIO (0.9-2.4); AST(SGOT) 19 U/L (15-37); Alanine Aminotransfer ALT/SGPT 25 U/L (13-56); Albumin, Serum 3.4 g/dL (3.2-5.0); Alkaline Phosphatase 97 U/L (45-117); Anion Gap 13 (5-15); BUN 15 mg/dL (7-18); BUN/Creat Ratio 18.1 RATIO (10-20); Chloride 105 mmol/L (98-107); Cholesterol 214 mg/dL (200); Creatinine, Serum 0.83 mg/dL (0.55-1.02); EST Glomerular Filtration Rate 72 mL/min (>60); Est Glom Filt Rate - Afr Amer 87 mL/min (>60); Globulin 3.9 g/dL (2.2-4.2); Glucose 87 mg/dL (74-106); High Density Lipoprotein 50 mg/dL; Potassium 4.1 mmol/L (3.5-5.1); Protein, Total 7.3 g/dL (6.4-8.2); Sodium Level 142 mmol/L (136-145); Triglycerides 140 mg/dL; Very Low Density Lipoprotein 28 mg/dL (5-40)
== END ==
PROVIDERS: Family Provider Family Medicine; PCP Family Medicine; Referring Provider Family Medicine; Visit Provider Family Medicine
DX: E78.5 Hyperlipidemia, unspecified (principal); E03.9 Hypothyroidism, unspecified
CPT/HCPCS: 36415; 80053; 80061; 84443

== ENCOUNTER → 2018-04-02 12:23 | Outpatient (CLI) | payer MEDICARE, OTHER, SELFPAY ==
--- NOTE | 2018-04-02 12:51 | BD_ITS ---
STUDY: DUAL ENERGY X-RAY ABSORPTIOMETRY / DXA REASON FOR EXAM: Female, 72 years old. Early menopause. Loss of height. TECHNIQUE: Bone Mineral Density (BMD) measurements of lumbar spine and bilateral hips were obtained. COMPARISON: Comparison is made with prior study dated December 17, 2014. FINDINGS: Lumbar Spine (L1-L4): g/cm2 (1.041) / T-score (-1.2) / Z-score (0.5) Findings are suggestive of osteopenia with a low fracture risk. Left Femur Total: g/cm2 (0.893) / T-score (-0.9) / Z-score (0.7) Left Femoral Neck: g/cm2 (0.922) / T-score (-0.8) / Z-score (1.0) Right Femur Total: g/cm2 (0.917) / T-score (-0.7) / Z-score (0.9) Right Femoral Neck: g/cm2 (0.893) / T-score (-1.0) / Z-score (0.7) The T-Scores on the most recent prior examination were: Lumbar Spine (L1-L4): There has been improvement of bone density since the previous examination. Left Femur Total: which represents an improvement of 1.4%. Right Femur Total: which represents an improvement of 0.9%. BD/Dexa Bone Density Study IMPRESSION: The patient is considered osteopenic as outlined below according to World Addi Organization (WHO) criteria with a low fracture risk. There has been improvement of bone density since the previous examination. Reference Information: The T-score is the number of standard deviations above or below the standard which is normal for young adults at their peak bone mineral density. The World Health Organization (WHO) interprets the T-scores as follows: Above -1 Normal bone density Between -1 and -2.5 Osteopenia Equal to / or below -2.5 Osteoporosis As a practical clinical guideline, osteopenia may be graded as follows: Mild -1 through -1.5 Moderate -1.6 through -2.0 Severe -2.1 through -2.4 The Z-score is the number of standard deviations above or below age-matched controls. A Z-score of less than -1.5 would be considered abnormal. References: 1. NIH Osteoporosis and Related Bone Diseases http://www.osteo.org 2. International Society for Clinical Densitometry http://www.iscd.org 3. National Osteoporosis Foundation http://www.nof.org Electronically Signed: Calderon Olivarez MD at 12:50 EST , Service support ,
== END ==
PROVIDERS: Family Provider Family Medicine; PCP Family Medicine; Referring Provider Family Medicine; Visit Provider Family Medicine
DX: N95.9 Unspecified menopausal and perimenopausal disorder (principal)
CPT/HCPCS: 77080

== ENCOUNTER → 2018-04-19 12:47 | Outpatient (CLI) | payer MEDICARE, OTHER, SELFPAY ==
[2017-08-06 14:45] VITALS: BMI 25.5
--- NOTE | 2018-04-19 13:00 | BI_ITS ---
MAMMOGRAPHY - UNILATERAL SCREENING: RIGHT BREAST REASON FOR EXAM: Female, 72 years old. Routine annual screening examination (unilateral). PERTINENT HISTORY: Personal history of breast cancer. Prior left mastectomy with a TRAM flap reconstruction. Remote right stereotactic breast biopsy. TECHNIQUE: Digital unilateral breast roxy (3D mammographic acquisition) in the CC and MLO projections. 2-D mediolateral oblique (MLO) and craniocaudad (CC) views of both breasts were obtained. CAD: Full Field Digital Mammography with Computer Added Detection was performed. COMPARISON: Comparison is made with prior study dated April 10, 2017 and April 17, 2016 FINDINGS: Breast Composition: The breasts are heterogeneously dense, which may obscure small masses. There are no dominant masses or suspicious calcifications. Stable appearance of benign appearing right axillary lymph nodes. No other significant abnormalities are identified. There has been no significant change since the prior study. BI/SCREEN MAMM (CAD) W/ROXY UNI R IMPRESSION: Stable unilateral screening mammogram. Yearly follow-up mammogram recommended. (A) ASSESSMENT CATEGORY: BIRADS Category 2: Benign. A letter regarding these results will be sent to the patient by the facility within 30 days. Approximately 10% of breast cancers are not detected by mammography. A normal mammogram should not delay biopsy of a clinically suspicious abnormality. [id number] Electronically Signed: Calderon Olivarez, at 15:25 EST , Service support ,
== END ==
PROVIDERS: Family Provider Family Medicine; PCP Family Medicine; Referring Provider Internal Medicine Hematology & Oncology; Visit Provider Internal Medicine Hematology & Oncology
DX: Z12.31 Encounter for screening mammogram for malignant neoplasm of breast (principal); Z85.3 Personal history of malignant neoplasm of breast
CPT/HCPCS: 77061; 77063; 77067; G0279

== ENCOUNTER 2018-04-27 05:09 | Emergency (ER) | payer MEDICARE, OTHER, SELFPAY ==
[2018-04-27 05:10] VITALS: BP 132/67; PULSE 102; RESP 20; TEMP 36.8; O2SAT 95; BMI 26.6
[2018-04-27 05:11] VITALS: BP 132/67; PULSE 102; RESP 20; TEMP 36.8; O2SAT 95
--- NOTE | 2018-04-27 05:20 | RAD_ITS ---
STUDY: X-RAY CHEST REASON FOR EXAM: Female, 72 years old. Cough TECHNIQUE: Frontal and lateral views of the chest. COMPARISON: 05/30/2013 FINDINGS: Left breast clips. The lungs are clear and expanded. There is no demonstrated pleural abnormality. Normal size heart. Normal mediastinum and ange. Normal visualized pulmonary arteries. Normal visualized aortic arch and descending thoracic aorta. Normal visualized thoracic spine. Normal visualized ribs, clavicles, and shoulders. Abdominal clips. RAD/Chest PA and Lateral IMPRESSION: No acute pulmonary findings. Electronically Signed: Kojo Harden MD at 6:46 EST Tel , Service support ,
[2018-04-27 06:30] VITALS: BP 143/63; PULSE 90; RESP 16; TEMP 36.7; O2SAT 93
--- NOTE | 2018-04-27 06:47 | ED.VISSUMM ---
- ER Visit Summary Date of Service: 04/27/18 Chief Complaint: I think I have the flu History of Present Illness: The patient is a 72 F who presents with an influenza-like illness. She has been ill since yesterday. She complains of temperature of 100.4, bilateral ear pain, cough, muscle and joint aches, headache, dizziness. She did see a doctor at her primary care physician's office yesterday who had attributed her symptoms to her statin. No nausea or vomiting. No diarrhea. She has not short of breath. Physical Examination: Heart rate 102 respiratory rate 20 pulse ox 95% Moist mucous membranes Heart regular rate and rhythm Lungs are clear I do not appreciate rales or rhonchi or wheezes Abdomen soft Alert Test Results: Rapid influenza negative. Two-view chest x-ray shows no acute process on my review. Emergency Department Course and Treatment: Patient presents with an influenza-like illness. Although rapid influenza is negative this test has relatively poor sensitivity and I discussed that it is still certainly possible that she has influenza. We discussed risks and benefits of Tamiflu. She states she has tolerated it well in the past. Patient was given a prescription for Tamiflu and understands to return for new or worsening symptoms. She is agreeable to this plan. All questions answered bedside. Patient discharged. Treatment Plan: [] Disposition: Discharge Impression: Influenza-like illness This note was generated with [employer] dictation software. It may contain incorrect words, spelling, and punctuation that were not noted in review of the chart prior to signing ED Disposition - Plan for ED Patient: Referrals: Jesus Peters MD [Primary Care Provider] -
--- NOTE | 2018-04-27 06:49 | ED.DEP ---
ED Disposition - Plan for ED Patient: Instructions: ED Flu Prescriptions: Oseltamivir Phosphate [Tamiflu] 75 mg PO BID #10 cap Referrals: Jesus Peters MD [Primary Care Provider] -
== END 2018-04-27 06:59 | disposition home or self-care (01) ==
PROVIDERS: Emergency Provider Emergency Medicine; Family Provider Family Medicine; PCP Family Medicine
DX: J11.1 Influenza due to unidentified influenza virus with other respiratory manifestations (principal); Z85.3 Personal history of malignant neoplasm of breast
CPT/HCPCS: 71046; 87804; 99282

== ENCOUNTER → 2018-05-25 07:25 | Outpatient (CLI) | payer MEDICARE, OTHER, SELFPAY ==
[2018-04-27 05:10] VITALS: BMI 26.6
[2018-05-25 08:32] LABS: Cholesterol 197 mg/dL (200); High Density Lipoprotein 47 mg/dL; Triglycerides 155 mg/dL; Very Low Density Lipoprotein 31 mg/dL (5-40)
== END ==
PROVIDERS: Family Provider Family Medicine; PCP Family Medicine; Referring Provider Family Medicine; Visit Provider Family Medicine
DX: E78.5 Hyperlipidemia, unspecified (principal)
CPT/HCPCS: 36415; 80061

== ENCOUNTER → 2018-08-01 | Outpatient (CLI) | payer MEDICARE, OTHER, SELFPAY ==
[2018-08-01 11:56] LABS: Absolute Lymphocyte Count 1.62 X10^3/ul (0.83-4.51); Absolute Neutrophil Count 5.4 X10^3/uL (2.0-7.7); Basophil# 0.04 X10^3/uL; Basophil% 0.5 % (0-1); Eosinophil# 0.17 X10^3/uL; Eosinophils% 2.2 % (0-5); Hematocrit 43.6 % (37-47); Lymphocyte # 1.62 X10^3/ul (4.0); Lymphocyte % 21.1 % (19-41); Mean Corp Hgb Conc 32.1 g/gl (32-36); Mean Corpuscular Volume 93.6 fL (81-99); Mean Platelet Vol. 12.1 fl (6.2-12.0); Monocyte# 0.47 X10^3/uL; Monocyte% 6.1 % (0-10); Neutrophil # 5.36 X10^3/uL (2.7-7.7); Platelet Count 262 K/mm3 (150-450); RBC Distribution Width CV 13.4 % (11.6-14.6); RBC Distribution Width SD 45.8 fl (35.1-43.9); Red Blood Count 4.66 M/mm3 (4.2-5.4); White Blood Count 7.7 K/mm3 (4.4-11.0)
[2018-08-01 11:57] LABS: POSITIVE COUNT NO; POSITIVE DIFFERENTIAL NO; POSITIVE MORPHOLOGY NO
[2018-08-01 12:52] LABS: AST(SGOT) 19 U/L (15-37); Alanine Aminotransfer ALT/SGPT 22 U/L (13-56); Albumin, Serum 3.7 g/dL (3.2-5.0); Alkaline Phosphatase 103 U/L (45-117); Anion Gap 5 (5-15); BUN 16 mg/dL (7-18); BUN/Creat Ratio 20.4 RATIO (10-20); Calcium,Total 9.2 mg/dL (8.5-10.1); Chloride 108 mmol/L (98-107); Creatinine, Serum 0.78 mg/dL (0.55-1.02); EST Glomerular Filtration Rate 77 mL/min (>60); Est Glom Filt Rate - Afr Amer 93 mL/min (>60); Globulin 3.6 g/dL (2.2-4.2); Glucose 83 mg/dL (74-106); Potassium 4.4 mmol/L (3.5-5.1); Protein, Total 7.3 g/dL (6.4-8.2); Sodium Level 141 mmol/L (136-145)
== END | disposition home or self-care (01) ==
LOC: MFPLAB 09:50
PROVIDERS: Family Provider Family Medicine; PCP Family Medicine; Referring Provider Family Medicine; Visit Provider Family Medicine
DX: R42 Dizziness and giddiness (principal)
CPT/HCPCS: 36415; 80053; 83735; 85025

== ENCOUNTER → 2018-08-29 14:46 | Outpatient (CLI) | payer MEDICARE, OTHER, SELFPAY ==
[2018-08-14 12:04] VITALS: BMI 26.6
--- NOTE | 2018-08-29 14:47 | ECHOCS_ITS ---
Reason For Study: ARRHYTHMIA Procedure This was a 2D Doppler, Color Flow transthoracic echocardiogram. Myocardial strain analysis was performed in this exam to aid in the assessment of cardiac function. Strain analysis performed using suboptimal images. The study was technically difficult. Exam performed in department. Left Ventricle Normal LV size. Left ventricular systolic function is normal. The estimated ejection fraction is 65 %. Stage 2 diastolic dysfunction. No regional wall motion abnormalities noted. Right Ventricle Normal RV size. Normal systolic function. Atria Normal left atrium. Normal right atrium. Mitral Valve Normal mitral valve. Tricuspid Valve Normal tricuspid valve. Mild tricuspid valve insufficiency. Pulmonary artery systolic pressure is 30 mmHg. Aortic Valve The aortic valve is not well visualized. Pulmonic Valve The pulmonic valve is not well visualized. Great Vessels Normal aortic root. The pulmonary artery is normal size. Normal inferior vena cava. Pericardium/Pleural No pericardial effusion. Medication 22 gauge I.V. with prn adaptor inserted into right arm. Diluted definity 4.5ml given slow IV push to enhance endocardial definition. MMode/2D Measurements & Calculations LVIDd: 3.9 cm IVSd: 0.86 cm Ao root diam: 3.2 cm LVIDs: 2.6 cm LVPWd: 0.87 cm RVDd: 3.1 cm FS: 32.2 % LAV(MOD-bp): 39.3 ml LVAd ap4: 24.8 cm2 SV(MOD-sp4): 47.2 ml LAV(MOD-bp) Indexed: 19.9 ml/m2 EDV(MOD-sp4): 70.2 ml LAV(MOD-sp2): 34.7 ml EDV(sp4-el): 72.5 ml LAV(MOD-sp4): 42.4 ml LVAs ap4: 12.8 cm2 ESV(MOD-sp4): 23.0 ml ESV(sp4-el): 22.9 ml EF(MOD-sp4): 67.3 % EF(sp4-el): 68.4 % SV(sp4-el): 49.6 ml LA A4 area: 16.7 cm2 LA dimension(2D): 3.5 cm RA A4 area: 14.3 cm2 Time Measurements MV dec time: 0.21 sec Doppler Measurements & Calculations MV E max carlo: 104.4 cm/sec Lat Peak E' Carlo: 8.0 cm/sec Med Peak E' Carlo: 8.6 cm/sec MV A max carlo: 107.4 cm/sec E/E' lat: 13.1 E/E' med: 12.1 MV E/A: 0.97 Ao V2 max: 145.1 cm/sec LV V1 max: 126.5 cm/sec PA V2 max: 86.4 cm/sec Ao max P.4 mmHg LV V1 max P.4 mmHg TR max carlo: 254.7 cm/sec TR max P.9 mmHg Interpretation Summary Normal LV size. Left ventricular systolic function is normal. The estimated ejection fraction is 65 %. Stage 2 diastolic dysfunction. Pulmonary artery systolic pressure is 30 mmHg. Contrast injection was performed. The global longitudinal strain is normal. The global longitudinal strain = -22.2 % (normal). Ordering Physician: Ermias Clifton Referring Physician: MELANIE WADE Performed By: Kayy Mancilla RDCS
== END ==
PROVIDERS: Family Provider Family Medicine; PCP Family Medicine; Referring Provider Internal Medicine Cardiovascular Disease; Visit Provider Internal Medicine Cardiovascular Disease
DX: R94.31 Abnormal electrocardiogram [ECG] [EKG] (principal)
CPT/HCPCS: 93306; Q9957; A4216; C8929

== ENCOUNTER → 2018-09-30 | Outpatient (CLI) | payer MEDICARE, OTHER, SELFPAY ==
[2018-08-14 12:04] VITALS: BMI 26.6
[2018-09-30 10:36] LABS: ALB/GLOB Ratio 0.9 RATIO (0.9-2.4); AST(SGOT) 20 U/L (15-37); Alanine Aminotransfer ALT/SGPT 23 U/L (13-56); Albumin, Serum 3.6 g/dL (3.2-5.0); Alkaline Phosphatase 109 U/L (45-117); Anion Gap 8 (5-15); BUN 16 mg/dL (7-18); BUN/Creat Ratio 16.5 RATIO (10-20); Calcium,Total 9.3 mg/dL (8.5-10.1); Chloride 103 mmol/L (98-107); Cholesterol 221 mg/dL (200); Creatinine, Serum 0.97 mg/dL (0.55-1.02); EST Glomerular Filtration Rate 60 mL/min (>60); Est Glom Filt Rate - Afr Amer 73 mL/min (>60); Free T3 2.6 pg/mL (2.18-3.98); Globulin 4.2 g/dL (2.2-4.2); Glucose 88 mg/dL (74-106); High Density Lipoprotein 46 mg/dL; Potassium 4.3 mmol/L (3.5-5.1); Protein, Total 7.8 g/dL (6.4-8.2); Sodium Level 139 mmol/L (136-145); T4 Total, Thyroxin 12.8 ug/dL (4.8-13.9); Thyroid Stim Hormone (TSH) 1.33 uIU/mL (0.358-3.74); Triglycerides 246 mg/dL; Very Low Density Lipoprotein 49 mg/dL (5-40)
== END | disposition home or self-care (01) ==
LOC: LAB 09:17
PROVIDERS: Family Provider Family Medicine; PCP Family Medicine; Referring Provider Family Medicine; Visit Provider Family Medicine
DX: E78.5 Hyperlipidemia, unspecified (principal); E03.9 Hypothyroidism, unspecified; E55.9 Vitamin D deficiency, unspecified
CPT/HCPCS: 36415; 80053; 80061; 82306; 84436; 84443; 84481

== ENCOUNTER 2019-02-17 12:28 | Emergency (ER) | payer MEDICARE, OTHER, SELFPAY ==
[2018-08-14 12:04] VITALS: BMI 26.6
[2019-02-17 12:29] VITALS: BP 163/102; PULSE 85; RESP 16; TEMP 36.4; O2SAT 99; BMI 26.6
--- NOTE | 2019-02-17 13:46 | CT_ITS ---
STUDY: CT BRAIN WITHOUT CONTRAST REASON FOR EXAM: Female, 73 years old. FALL, HEMATOMA LEFT FOREHEAD RADIATION DOSAGE (If Supplied By Facility): CTDIvol = ( 60.81 ) mGy, DLP = ( 1112.69 ) mGycm TECHNIQUE: Transaxial CT imaging of the brain was performed without administration of intravenous contrast material. Individualized dose optimization techniques were used for this CT. COMPARISON: 11/11/2011 FINDINGS: Moderate sized left frontal scalp hematoma. Normal calvarium. Normal size ventricles and extra-axial spaces for the patient''s age. Normal white matter tracts of the cerebral hemispheres. Normal basal ganglia and thalami. Normal brainstem. Normal cerebellum. There is no intracranial hemorrhage. There are no findings of an acute ischemic infarction. Normal visualized paranasal sinuses. CT/Brain/Head without Contrast IMPRESSION: Moderate sized left frontal scalp hematoma but no intracranial hemorrhage. Electronically Signed: Marcelino Ward MD at 14:44 EST Tel , Service support ,
--- NOTE | 2019-02-17 13:46 | RAD_ITS ---
STUDY: X-RAY - LEFT ELBOW REASON FOR EXAM: Female, 73 years old. PATIENT FELL. PAIN IN LEFT ELBOW WITH SWELLING AND BRUISING. TECHNIQUE: 4 view(s) of the elbow. COMPARISON: None. FINDINGS: Normal visualized humerus, radius and ulna. Normal radiocapitellar and ulnotrochlear articulations. The soft tissue structures are unremarkable. RAD/Elbow min 3 Views IMPRESSION: Normal x-ray examination of the elbow. Electronically Signed: Marcelino Ward MD at 15:16 EST Tel , Service support ,
--- NOTE | 2019-02-17 14:26 | RAD_ITS ---
STUDY: X-RAY - CERVICAL SPINE REASON FOR EXAM: Female, 73 years old. PATIENT FELL. PAIN IN RIGHT SIDE OF CERVICAL SPINE WITH STIFFNESS. TECHNIQUE: 3 view(s) of the cervical spine were obtained. COMPARISON: None FINDINGS: Normal anterior atlantoaxial articulation. Normal odontoid process. Normal cervical lordosis. There is multi-level endplate spondylosis. There is multi-level degenerative disc disease with multilevel disc space narrowing. Normal visualized intervertebral neuroforamina. The soft tissue structures are unremarkable. RAD/Cerv Spine 2 or 3 Views IMPRESSION: No acute fracture or subluxation. Electronically Signed: Marcelino Ward MD at 15:15 EST Tel , Service support ,
--- NOTE | 2019-02-17 15:20 | ED.RN ---
PT REQUESTING PAIN MEDICATION, DR. HUNT MADE AWARE.
--- NOTE | 2019-02-17 15:29 | ED.VISSUMM ---
- ER Visit Summary Date of Service: 02/17/19 Chief Complaint: [Fall with head injury] History of Present Illness: The patient is a 73 F [the emergency department after sustaining a mechanical fall this morning. Patient states that she was walking when she tripped and fell and hit her head on the ceramic floor in her home. Denies loss of consciousness. Patient complaining of pain to her left elbow as well as her left knee. Patient has been ambulatory. She also complains of some pain in her neck. She denies any paresthesias. Patient not on blood thinners. She has a history of high cholesterol and history of breast cancer.] Physical Examination: [HEENT-PERRLA, EOMI. Cranial nerves II through XII grossly intact. TMs clear. Mucous membranes moist. No adenopathy. Patient has a hematoma in the left frontal forehead without any bony depressions noted. No hemotympanum is noted. Patient has diffuse C-spine tenderness to palpation. Cardiovascular-regular rate and rhythm without murmur or ectopy Lungs-clear to auscultation, chest wall stable without crepitus or subcu emphysema Abdomen-normoactive bowel sounds, soft, nontender, no rebound or rigidity, no peritoneal signs. Extremities-intact ?4, normal range of motion, normal pulses. Left elbow-patient has some mild diffuse tenderness on palpation. She has a superficial skin abrasion. Some faint ecchymosis noted. She has good range of motion of flexion-extension. Knee-patient has a superficial skin abrasion however no bony tenderness on exam she has normal range of motion. She is neurovascular intact. Ligamentously stable. Test Results: [The scan of the brain without contrast showed a hematoma left forehead but no fractures or acute intracranial hemorrhage. X-rays of the cervical spine as well as the left elbow obtained showed no fractures] Emergency Department Course and Treatment: [Refused any pain meds into the emergency department.] Treatment Plan: [Patient to use ibuprofen or Tylenol for discomfort. Patient advised to follow-up with primary care physician in 3 to 5 days.] Disposition: [Discharged home in stable condition] Impression: [Closed head injury Cervical strain Contusion left elbow Mechanical fall] This note was generated with [employer] software. It may contain incorrect words, spelling, and punctuation that were not noted in review of the chart prior to signing ED Disposition - Plan for ED Patient: Referrals: Peters,Jesus, MD [Primary Care Provider] -
--- NOTE | 2019-02-17 15:32 | ED.DEP ---
ED Disposition - Plan for ED Patient: Instructions: FALL, Mechanical, CONCUSSION, No Wake Up, Neck Sprain/Strain, CONTUSION, Elbow Referrals: Jesus Peters MD [Primary Care Provider] - 3-5 Days
[2019-02-17 15:43] VITALS: BP 119/82; PULSE 74; RESP 16; O2SAT 98
== END 2019-02-17 15:45 | disposition home or self-care (01) ==
PROVIDERS: Emergency Provider Emergency Medicine; Family Provider Family Medicine; PCP Family Medicine
DX: S00.83XA Contusion of other part of head, initial encounter (principal); S16.1XXA Strain of muscle, fascia and tendon at neck level, initial encounter; S50.02XA Contusion of left elbow, initial encounter; W01.0XXA Fall on same level from slipping, tripping and stumbling without subsequent striking against object, initial encounter; Y93.01 Activity, walking, marching and hiking; Y92.009 Unspecified place in unspecified non-institutional (private) residence as the place of occurrence of the external cause; E78.00 Pure hypercholesterolemia, unspecified
CPT/HCPCS: 70450; 72040; 73080; 99282

== ENCOUNTER → 2019-04-10 17:11 | Outpatient (CLI) | payer MEDICARE, OTHER, SELFPAY ==
--- NOTE | 2019-04-10 17:17 | CT_ITS ---
STUDY: CT BRAIN WITHOUT CONTRAST REASON FOR EXAM: Female, 73 years old. FALL RADIATION DOSAGE (If Supplied By Facility): CTDIvol = ( 44.99 ) mGy, DLP = ( 762.36 ) mGycm TECHNIQUE: Transaxial CT imaging of the brain was performed without administration of intravenous contrast material. Individualized dose optimization techniques were used for this CT. COMPARISON: 02/17/2019 FINDINGS: Normal soft tissue structures. Normal calvarium. Normal size ventricles and extra-axial spaces for the patient''s age. Normal white matter tracts of the cerebral hemispheres. Normal basal ganglia and thalami. Normal brainstem. Normal cerebellum. There is no intracranial hemorrhage. There are no findings of an acute ischemic infarction. Normal visualized paranasal sinuses. CT/Brain/Head without Contrast IMPRESSION: Normal unenhanced CT scan of the brain. Electronically Signed: Leo Hernandez MD at 18:36 EST , Service support ,
== END ==
PROVIDERS: PCP Family Medicine; Referring Provider Family Medicine; Visit Provider Family Medicine
DX: S00.03XA Contusion of scalp, initial encounter (principal)
CPT/HCPCS: 70450

== ENCOUNTER → 2019-05-05 13:01 | Outpatient (CLI) | payer MEDICARE, OTHER, SELFPAY ==
--- NOTE | 2019-05-05 13:06 | BI_ITS ---
MAMMOGRAPHY - UNILATERAL SCREENING: RIGHT BREAST REASON FOR EXAM: Female, 73 years old. Routine annual screening examination (unilateral). PERTINENT HISTORY: Personal history of breast cancer. Prior left mastectomy with TRAM flap reconstruction. Great aunt with breast cancer. TECHNIQUE: Digital unilateral breast roxy (3D mammographic acquisition) in the CC and MLO projections. 2-D mediolateral oblique (MLO) and craniocaudad (CC) views of both breasts were obtained. CAD: Full Field Digital Mammography with Computer Added Detection was performed. COMPARISON: Comparison is made with prior examination dated April 19, 2018 and April 18, 2017. FINDINGS: Breast Composition: The breasts are heterogeneously dense, which may obscure small masses. There are no dominant masses or suspicious calcifications. Stable small benign-appearing bilateral axillary lymph nodes. No other significant abnormalities are identified. There has been no significant change since the prior study. BI/SCREEN MAMM (CAD) W/ROXY UNI R IMPRESSION: Stable unilateral screening mammogram. Yearly follow-up mammogram recommended. (A) ASSESSMENT CATEGORY: BIRADS Category 2: Benign. A letter regarding these results will be sent to the patient by the facility within 30 days. Approximately 10% of breast cancers are not detected by mammography. A normal mammogram should not delay biopsy of a clinically suspicious abnormality. [id number] Electronically Signed: Calderon Olivarez, at 14:38 EDT , Service support ,
== END ==
PROVIDERS: PCP Family Medicine; Referring Provider Family Medicine; Visit Provider Family Medicine
DX: Z12.31 Encounter for screening mammogram for malignant neoplasm of breast (principal)
CPT/HCPCS: 77063; 77067

== ENCOUNTER → 2019-06-20 09:00 | Outpatient (CLI) | payer MEDICARE, OTHER, SELFPAY ==
[2019-06-13 10:03] VITALS: BMI 26.6
--- NOTE | 2019-06-20 09:01 | MRI_ITS ---
STUDY: BILATERAL BREAST MR WITHOUT AND WITH CONTRAST REASON FOR EXAM: Female, 73 years old. Status post left mastectomy with TRAM flap reconstruction. Enlarging painful mass. TECHNIQUE: Multi-sequence multi-echo imaging of both breasts was performed with a dedicated breast coil. T1-weighted and T2-weighted images were performed before the administration of contrast. Contrast could not be administered because of no intravenous access. COMPARISON: Right mammogram dated May 05, 2019 FINDINGS: RIGHT BREAST: The breast tissue is fatty. No contrast was administered so the degree of enhancement cannot be determined. There are no abnormal enhancing masses or areas of non-mass enhancement in the right breast. LEFT BREAST: Postmastectomy and TRAM flap reconstruction changes are noted. Large circumscribed mixed signal intensity lesions within the left breast. Superiorly, this large mass measures approximately 9.5 cm x 5.5 cm. The mass extends inferiorly into 2 separate mixed signal intensity masses medially and laterally. The medial mass measures 4.7 cm x 3.5 cm and the lateral mass measures 6.2 cm x 5.7 cm. Given the circumscribed morphology of these masses and the next signal intensity with septations, these masses most likely represent postoperative seromas. An ultrasound of the left breast with percutaneous ultrasound-guided aspiration would be appropriate to further evaluate these masses. There are no enlarged or abnormal lymph nodes. There is no abnormality in the visualized regions of the chest or liver. MRI/MRI BREAST W/O CONT BILAT IMPRESSION: Normal right mammogram. Contrast was not administered. Large masses in the left breast, as outlined above, most likely representing post surgical seromas. A second look ultrasound with aspiration of these masses would be appropriate for further evaluation, as outlined above. CATEGORY: BIRADS Category 0: Incomplete. Need additional imaging evaluation. A letter regarding these results will be sent to the patient by the facility within 30 days. Electronically Signed: Santi Schwartz MD at 13:05 EDT , Service support ,
[2019-06-20 09:40] LABS: CREATININE FINGERSTICK 0.6 mg/dL (0.55-1.02); EGFR FINGERSTICK > 60.0000 mL/min (>60)
== END ==
PROVIDERS: PCP Family Medicine; Referring Provider Surgery; Visit Provider Surgery
DX: N64.4 Mastodynia (principal); N63.20 Unspecified lump in the left breast, unspecified quadrant; N65.0 Deformity of reconstructed breast; D05.12 Intraductal carcinoma in situ of left breast; Z90.12 Acquired absence of left breast and nipple; N65.1 Disproportion of reconstructed breast
CPT/HCPCS: 77047

== ENCOUNTER 2019-06-27 13:08 | Observation (INO) | payer MEDICARE, OTHER, SELFPAY ==
[2019-06-13 10:03] VITALS: BMI 26.6
--- NOTE | 2019-06-25 13:07 | EKG12_ITS ---
Test Reason : PRE OP Blood Pressure : / mmHG Vent. Rate : 081 BPM Atrial Rate : 081 BPM P-R Int : 122 ms QRS Dur : 090 ms QT Int : 378 ms P-R-T Axes : 017 043 045 degrees QTc Int : 439 ms Normal sinus rhythm Nonspecific ST abnormality Abnormal ECG Confirmed by DYLON NICHOLS ([id number]), supervising editor trailer YVES ROBERT ([id number]) on 06/30/2019 2:46:51 PM Referred By: Mason Link Confirmed By:DYLON NICHOLS
[2019-06-25 13:12] LABS: Hematocrit 43.2 % (37-47); Hemoglobin 13.6 g/dL (12.0-15.0); Mean Corp Hgb Conc 31.5 g/dL (32-36); Mean Corpuscular Hgb 29.2 pg (27.0-32.0); Mean Corpuscular Volume 92.7 fL (81-99); Mean Platelet Vol. 11.8 fl (6.2-12.0); Platelet Count 269 K/mm3 (150-450); RBC Distribution Width SD 44.2 fl (35.1-43.9); Red Blood Count 4.66 M/mm3 (4.2-5.4); White Blood Count 11.9 K/mm3 (4.4-11.0)
[2019-06-25 13:21] LABS: International Normalized Ratio 1.1; Prothrombin Time (Protime)PT. 13.2 SECONDS (11.7-14.9)
[2019-06-25 13:22] LABS: Partial Thromboplast Time 26.1 Seconds (24.1-36.2)
[2019-06-25 13:59] LABS: AST(SGOT) 21 U/L (15-37); Alanine Aminotransfer ALT/SGPT 21 U/L (13-56); Albumin, Serum 3.5 g/dL (3.2-5.0); Alkaline Phosphatase 104 U/L (45-117); Bilirubin, Direct 0.07 mg/dL (0.00-0.30); Globulin 3.9 g/dL (2.2-4.2); Protein, Total 7.4 g/dL (6.4-8.2); Thyroid Stim Hormone (TSH) 1.98 uIU/mL (0.358-3.74)
--- NOTE | 2019-06-26 23:51 | PCM.HP.BLA ---
History and Physical Date of Admission: 06/27/19 HISTORY OF PRESENT ILLNESS 73 year old woman presents for evaluation of her breast reconstruction after developing left breast cancer in 2013. She had breast reconstruction with a TRAM flap. Over the last year, she has noted increasing pain and hardness in the superior pole of her left breast reconstruction. Just recently she started developing some redness on her skin overlying the hard area superiorly. Her left breast mastectomy and reconstruction with a TRAM flap was in April,. 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 This hard painful mass involves the majority of the superior pole of her left breast reconstruction. She denies fever. She denies any drainage. MRI was done on 06/20/19 which showed large circumscribed mixed signal intensity lesions within the left breast. Superiorly, this large mass measures approximately 9.5 cm x 5.5 cm. The mass extends inferiorly into 2 separate mixed signal intensity masses medially and laterally. The medial mass measures 4.7 cm x 3.5 cm and the lateral mass measures 6.2 cm x 5.7 cm. Given the circumscribed morphology of these masses and the next signal intensity with septations, these masses most likely represent postoperative seromas. An ultrasound of the left breast with percutaneous ultrasound-guided aspiration would be appropriate to further evaluate these masses. She denies any recent infection. She presents today for further evaluation and treatment. 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 Open wound of lateral abdominal wall Osteoarthritis Personal history of breast cancer UTI (urinary tract infection) Vitamin D deficiency Neoplasm of skin of ear Neoplasm of skin of nose Right wrist fracture Essential (primary) hypertension Late effect of certain other external causes PAST SURGICAL HISTORY excision of lesion Status post transverse rectus abdominis muscle (TRAM) flap breast reconstruction Achilles tendon repair cholecystectomy hysterectomy left breast biopsy left mastectomy ALLERGIES erythromycin base [Erythromycin Base] Penicillins procaine HCl [From Novocain] zoster vaccine live [From Zostavax (PF)] gemfibrozil hydromorphone HCl [From Dilaudid] meloxicam morphine nitrofurantoin macrocrystalline [From Macrodantin] prednisone Sulfa (Sulfonamide Antibiotics) fentanyl BAND AID MEDICATIONS Levothyroxine Sodium [Levoxyl] evolocumab FAMILY HISTORY Mother -Colon cancer, Hypertension, Diabetes, Kidney disease, Heart disease Father - Heart disease, Hyperlipidemia, Kidney disease, Myocardial infarction Brother - Myocardial infarction Sister - Myocardial infarction Sister - Myocardial infarction Sister - Myocardial infarction SOCIAL HISTORY Smoking Status: Never smoker REVIEW OF SYSTEMS General - Denies fever, anorexia and weight loss. Eyes - has cataracts. Denies glaucoma. ENT - Denies nasal congestion and sore throat. Cardiovascular - Denies chest pain or discomfort, fatigue, lightheadedness and shortness of breath with exertion. Respiratory - Denies cough and shortness of breath. Gastrointestinal - Denies nausea, vomiting, diarrhea, constipation and bloody stools. Genitourinary - Denies blood in urine, urinary frequency, other abnormal vaginal bleeding and pelvic pain. Musculoskeletal - Denies joint pain, back pain, stiffness and muscle weakness. Has arthritis. Skin - no suspicious lesions. Denies skin cancer. Neuro - Denies headaches and weakness. Psych - Denies anxiety and depression. Endocrine - Denies excessive urination and excessive thirst. has history of left breast cancer. Has enlarging painful left breast reconstruction TRAM flap mass. Hematologic - Denies bleeding and abnormal bruising. PHYSICAL EXAMINATION General - well developed, well nourished, in no acute distress. Head - normocephalic and atraumatic. No suspicious lesions noted. Eyes - PERRL/EOM intact, conjunctiva and sclera clear. Ears - no suspicious lesions noted. Nose - no suspicious lesions noted at this time. Mouth - No suspicious lesions noted Neck - no masses, thyromegaly, or abnormal cervical nodes. No suspicious lesions noted. Chest wall - No suspicious lesions noted. Breasts - The left breast shows a well healed TRAM flap. On the superior aspect of the left breast reconstruction TRAM flap is a firm mass that measures 12 cm. No ulceration. No skin retraction. No skin dimpling. On the central aspect of the mass, there is some adherence to the skin causing some pressure erythema. No fluctuance. The left breast reconstruction is larger than the right breast. Right breast shows no masses. Slight Stage II ptosis present. Distance from the midclavicular line on the right to the nipple is 26 cm and from the nipple to the inframammary fold is 7 cm. The nipple areolar complex diameter is 5 cm. No inframammary intertrigo seen. No breast masses palpable on the right. No axillary adenopathy. Lungs - clear bilaterally to auscultation. Heart - regular rate and rhythm. Abdomen - normal bowel sounds; no hepatosplenomegaly no ventral,umbilical hernias or masses noted. has lower abdominal wall TRAM flap scar that is healed. Good abdominal wall contour noted. on the left TRAM flap scar laterally was an open surgical wound that has healed. Pulses - pulses normal in all 4 extremities. Extremities - no clubbing, cyanosis, edema, or deformity noted with normal full range of motion of all joints. No suspicious lesions noted Neuro - cranial nerves II-XII grossly intact. Skin - no rashes. Cervical nodes - no significant adenopathy. Axillary nodes - no significant adenopathy. Inguinal - no significant adenopathy. Psych - alert and cooperative; normal mood and affect; normal attention span and concentration. ASSESSMENT 1. 12 cm painful firm mass left breast reconstruction TRAM flap. 2. Left breast cancer. 3. Deformity reconstructed left breast. 4. Disproportion reconstructed left breast. 5. Acquired absence left breast. 6. Erythema of skin left breast reconstruction. PLAN The enlarging firm mass superior pole left breast reconstruction is probably related to her minor traumas at work and underlying fat necrosis. However, it needs to be excised to minimize any recurrence in the future involving the chest wall. The tissue will be sent to Pathology for analysis to rule out carcinoma and to Microbiology for culture. A positive culture will necessitate antibiotic therapy. Sometimes suboptimal healing of scars is due to a chronic subclinical infection. Surgery will be done under general anesthesia with a surgical observation overnight stay in the hospital. During the excision, some suction assisted lipoplasty may be needed as well. Postop will need a drain for several days and be maintained on antibiotics until the drains are removed. After healing has occurred, if there are any deformities or disproportion of the reconstructed breast as compared to the opposite right breast, then additional revision reconstruction may be warranted. One option is cohesive gel implants as she is not interested in another flap at this time. We can discuss at future visits after healing as occurred. MRI was done preoperatively on 06/20/19. It showed large circumscribed mixed signal intensity lesions within the left breast. Superiorly, this large mass measures approximately 9.5 cm x 5.5 cm. The mass extends inferiorly into 2 separate mixed signal intensity masses medially and laterally. The medial mass measures 4.7 cm x 3.5 cm and the lateral mass measures 6.2 cm x 5.7 cm. Given the circumscribed morphology of these masses and the next signal intensity with septations, these masses most likely represent postoperative seromas. An ultrasound of the left breast with percutaneous ultrasound-guided aspiration would be appropriate to further evaluate these masses. Patient was informed of the risks and complications of the procedure including alternatives to surgery. These were discussed with the patient personally. Patient voices understanding and wishes to proceed. Some of the risks and complications were included in a form from the [employer]. Essential Procedure Criteria Procedure Essential: Yes Criteria Note: On 05/06/2019 the [facility] ([facility]) Public Order signed by [facility] Director Tootie Dunham M.D., regarding the Management of Non-Essential Surgeries and Procedures for the purpose of preserving Personal Protective Equipment (PPE) and critical hospital capacity and resources within [place] went into effect as of 05/07/2019 at 5:00PM. According to the [facility] Public Order: This action will remain in full force and effect until the State of Emergency declared by the Governor no longer exists or the Director of the [facility] rescinds or modifies this Order.. This [facility] order stated all non-essential or elective surgeries and procedures that utilize PPE should be delayed unless there is undue risk to the current or future health of a patient. After reviewing the aforementioned [facility] Public Order and the patients clinical case, I have determined that the scheduled procedure meets the criteria to go forward. Risk to Patient if Procedure Delayed: Risk of rapidly worsening to severe symptoms if delayed
[2019-06-27] VITALS (15 sets, daily range): BP systolic 120–156; BP diastolic 53–72; PULSE 55–98; RESP 14–18; TEMP 36.2–37.3; O2SAT 94–100; BMI 24.3
--- NOTE | 2019-06-27 | BRBX_PTH ---
PATIENT: DEEJAY WOLF LOC: MS3 U#:[id number] AGE/SX: 73/F ROOM: MS314 RE06/27/[address]: Dr. Mason Link MD : 1945 BED: 1 DIS: 06/28/2019 SPEC #: [id number] RECD: 06/27/19 13:40 STATUS: MARSHALL RERachel #: [id number] SHIRLEY: 06/27/19 00:[address]: Mason Link DEPT: SURGICAL PATHOLOGY RECD BY: Ari Buitargo ENTERED: 06/27/19 13:41 SP TYPE: BREAST BX OTHR DR: Dr. Jesus Peters MD Tissues: Left breast, NOS Procedures: Surgery Specimen Level IV HEADER OPERATION: ERAS, revision reconstructed TRAM flap breast with excision PRE-OP DIAGNOSIS: 12 cm painful firm mass left breast reconstruction TRAM flap; left breast cancer; deformity reconstructed left breast; disproportion reconstructed left breast TISSUE SUBMITTED: Left breast MICROSCOPIC DIAGNOSIS Left breast, excision: Pieces of fibroadipose tissue with extensive fat necrosis, chronic inflammation, foreign body giant cell reaction and dystrophic calcifications. Negative for malignancy. ERICA:smith 07/01/19 COMMENT Please make reference to previous specimen ([id number]) left breast tissue, stereotactic core biopsy with diagnosis of ductal carcinoma in situ and ([id number]) left breast, mastectomy with diagnosis of focal atypical lobular hyperplasia and biopsy cavity with associated reactive changes. MICROSCOPIC DESCRIPTION Slides are reviewed. GROSS DESCRIPTION Received in fixative is one container labeled with the patient's name and designated left breast tissue TRAM flap. The specimen consists of multiple pieces of fibroadipose tissue weighing in aggregate 320 gm and measuring in aggregate 15 x 13 x 5 cm. Sections reveal focal fibrous area and focal yellowish area consistent with fat necrosis. No mass lesion is identified. [employer] Bench sections are submitted in six cassettes. / ERICA:smith 06/30/19 TC:5 CPT: 28695
[2019-06-27] MEDS: Scopolamine 1mg/72hr Patch 1 PATCH TRANSDERM. (06:15)
[2019-06-27] MEDS: Acetaminophen 500 MG Tablet 1000 MG PO (06:15)
[2019-06-27] MEDS: Gabapentin 600 MG Tablet PO (06:15)
[2019-06-27] MEDS: Lactated Ringers 1,000 ML 40 ML IV (06:32)
[2019-06-27 06:50] LABS: Bedside Glucose 93 mg/dL (70-110)
--- NOTE | 2019-06-27 09:36 | PCM.OPRPT ---
Report of Operation Date of Procedure: 06/27/19 Pre-Operative Diagnosis: 1. 12 cm painful firm mass left breast reconstruction TRAM flap. 2. Left breast cancer. 3. Deformity reconstructed left breast. 4. Disproportion reconstructed left breast. 5. Acquired absence left breast. 6. Erythema of skin left breast reconstruction. Post-Operative Diagnosis: Same. Surgery/Procedure Performed:: Revision reconstructed left breast with excision 12 cm painful firm mass deformity left breast reconstruction TRAM flap and placement AmnioFill Placental Connective Tissue Powder (1000 mg). Description of Surgical Findings:: 73 year old woman presents for evaluation of her breast reconstruction after developing left breast cancer in 2013. She had breast reconstruction with a TRAM flap. Over the last year, she has noted increasing pain and hardness in the superior pole of her left breast reconstruction. Just recently she started developing some redness on her skin overlying the hard area superiorly. Her left breast mastectomy and reconstruction with a TRAM flap was in April,. 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 This hard painful mass involves the majority of the superior pole of her left breast reconstruction. She denies fever. She denies any drainage. MRI was done on 06/20/19 which showed large circumscribed mixed signal intensity lesions within the left breast. Superiorly, this large mass measures approximately 9.5 cm x 5.5 cm. The mass extends inferiorly into 2 separate mixed signal intensity masses medially and laterally. The medial mass measures 4.7 cm x 3.5 cm and the lateral mass measures 6.2 cm x 5.7 cm. Given the circumscribed morphology of these masses and the next signal intensity with septations, these masses most likely represent postoperative seromas. An ultrasound of the left breast with percutaneous ultrasound-guided aspiration would be appropriate to further evaluate these masses. She denies any recent infection. Patient was informed of the risks and complications of the procedure including alternatives to surgery. These were discussed with the patient personally. Patient voices understanding and wishes to proceed. Some of the risks and complications were included in a form from the [employer]. I used AmnioFill Placental Connective Tissue Powder, 1000 mg. Catalog Number - [id number]. Lot Number - [id number]. Expiration - February 20, 2024. I used Jeffrey absorbable hemostat, (I used 2 vials). Reference Number - [id number]. Lot Number - [id number]. Expiration - October 17, 2023. anode adjuster: Rajeev Chino. Type of Anesthesia:: General Specimen's removed: Painful firm mass left breast reconstruction TRAM flap to Pathology and Microbiology. Drains: Emre. Estimated Blood Loss (mL): 50 ml. Description of Procedure: Patient was taken to OR in supine position and was placed under general anesthesia. The left breast was prepped and draped in the usual fashion. SCD's were placed for DVT prophylaxis. Perioperative antibiotics were given intravenously. Using xylocaine with epinephrine, the TRAM flap incision left breast was infiltrated. After waiting 5 minutes for the anesthetic to take effect, semicircular incision was made on the superior aspect of the TRAM flap scar down into the subcutaneous tissue. The firmness from fat necrosis was more extensive than clinically palpated. I dissected the firm mass off the pectoralis muscle. The firm mass extended superiorly from the anterior axillary line to the sternal area. Some liquefied material was expressed from some of the firm masses. The tissue was sent to Pathology for analysis to rule out carcinoma and to Microbiology for culture. A positive culture may necessitate antibiotic therapy. Hemostasis was obtained with electrocautery. Most of the TRAM flap from 2013 was firm and was removed. The breast wound was irrigated with Irrisept 0.05% Chlorhexidine solution followed by saline irrigation. I sprayed AmnioFill placental connective tissue powder into the base of the wound to aid in wound healing. To minimize seroma formation I sprayed 2 vials of Jeffrey absorbable hemostat into the left breast wound. I placed a size 15 Emre drain into the breast wound through a separate stab incision inferiorly. It was secured to the skin with 3-0 Nylon suture. The left breast wound was then closed in a layered fashion with 3-0 Monocryl interrupted sutures for the deep dermis and subcutaneous tissues. The skin was approximated with 3-0 V lock unidirectional barbed running subcuticular suture. This was followed by Histoacryl skin tissue adhesive. No vascular compromise was seen on the TRAM flap skin paddle. No clinical evidence of hematoma. Kerlix gauze was applied followed by Medipore tape and compression nyasia wrap. Patient tolerated the procedure well and was sent to PACU in satisfactory condition. Patient will be sent home on antibiotics and pain medication. She will keep her head elevated during the initial postoperative period. Patient will followup in a week for a wound check and for discussion of the pathology report and for discussion of the Microbiology report. A positive culture will necessitate antibiotic therapy. The drain will be removed in 2 weeks. After healing has occurred, will reassess her breast reconstruction for further revision with placement of cohesive gel implants. Grafts/Implants Used: AmnioFill Placental Connective Tissue Powder - Complications None. - Admit VTE Documentation VTE Present on Admission: No VTE Mechan Device Prophylaxis: SCD's VTE Pharm Prophylaxis ordered?: Yes Surgery Charges CPT - 08379 ICD-10 - N63.20, N64.4, D05.12, N65.0, N65.1, Z90.12, L53.9
--- NOTE | 2019-06-27 10:02 | DCINST_ITS ---
You will use the following diet at home:: No restrictions Discharge Activity: May not drive while taking narcotic pain medications., May Not Shower - until the drain is removed., - - keep head elevated. no heavy lifting. May shower in (days): 14 - after the drain is removed. May resume sexual activity in: 10-14 days Weight Bearing Status: Weight bearing as tolerated Lifting Restrictions: 20 lbs. Keep extremity elevated above heart level: - - elevate head. Call your doctor if your incision/area has: Continuous Slow Oozing, Sudden Increased Bleeding, Increased Pain/ Swelling, Increased Redness, Foul Smelling Discharge, Swelling at the incision site Call your doctor if you observe: Fever of 101 or Higher, Coldness, Increased Pain, Shortness of breath, Chest pain, Calf discomfort, Uncontrolled pain Suture Line Care: - - dry dressings every other day followed by compression nyasia wrap. Change Dressing in (Days):: 2 - dry dressings every other day followed by compression nyasia wrap. Cleanse incision/area with: - - may get incision wet in the shower after the drain is removed. Drain: Suction - juany drain to bulb suction. empty and record output daily. Allergies/Adverse Reactions: Allergies chlorhexidine Allergy (Verified 06/25/19 11:43) Itching erythromycin base Allergy (Verified 06/25/19 11:58) Hives gemfibrozil Allergy (Verified 06/25/19 11:42) PT UNSURE OF REACTION hydromorphone [From Dilaudid] Allergy (Verified 06/25/19 11:42) Nausea/Vom/Diarrhea Iodinated Contrast Media Allergy (Verified 06/25/19 11:42) Rash meloxicam [From Mobic] Allergy (Verified 06/25/19 11:58) Nausea morphine Allergy (Verified 06/25/19 11:42) Nausea/Vom/Diarrhea nitrofurantoin [From Macrodantin] Allergy (Verified 06/25/19 11:42) Vomiting Penicillins Allergy (Verified 06/25/19 11:42) Hives Sulfa (Sulfonamide Antibiotics) Allergy (Verified 06/25/19 11:42) PT UNSURE OF REACTION fentanyl Adverse Reaction (Verified 06/25/19 11:58) NEEDS FOLLOW-UP latex Adverse Reaction (Verified 06/25/19 11:39) NEEDS FOLLOW-UP prednisone Adverse Reaction (Verified 06/25/19 11:58) NEEDS FOLLOW-UP zinc Adverse Reaction (Verified 06/27/19 05:59) Upset Stomach BAND AID Allergy (Uncoded 06/13/19 10:03) Rash shingle vaccine Allergy (Uncoded 06/25/19 11:42) Vomiting Medications to take at Discharge Levothyroxine Sodium [Levoxyl] 50 mcg PO DAILY 03/26/14 evolocumab 420 mg/3.5 mL subcutaneous wearable injector 420 mg SC .1xmonth ml 08/14/18 Acyclovir [Zovirax] 800 mg PO PRN PRN 06/25/19 Clindamycin HCl [Cleocin] 300 mg PO TID #42 cap 06/27/19 Diazepam [Valium] 5 mg PO 4X/DAY PRN PRN #30 tablet 06/27/19 Docusate Sodium [Colace] 100 mg PO BID #60 cap 06/27/19 Insulin Lispro [Humalog KwikPen] 1 - 6 unit SUBCUT Q4H PRN PRN insuln.pen 06/27/19 Lactobacillus Acidophilus/Fos [Acidophilus Probiotic Tablet] 1 ea PO BID #30 tab 06/27/19 Oxycodone [Oxyir] 5 mg PO Q4H PRN PRN #40 tablet 06/27/19 proMETHazine tablet [Phenergan tablet] 25 mg PO 4X/DAY PRN PRN #30 tab 06/27/19 The following prescriptions were given: Lactobacillus Acidophilus/Fos [Acidophilus Probiotic Tablet] 1 ea PO BID #30 tab Transmission Status: Pending to [facility] #30 Clindamycin HCl [Cleocin] 300 mg PO TID #42 cap Transmission Status: Pending to [facility] #30 Docusate Sodium [Colace] 100 mg PO BID #60 cap Transmission Status: Pending to [facility] Oxycodone [Oxyir] 5 mg PO Q4H PRN PRN #40 tablet PRN Reason: Pain Score 4-5/10 Transmission Status: Sent to [facility]30 proMETHazine tablet [Phenergan tablet] 25 mg PO 4X/DAY PRN PRN #30 tab PRN Reason: Nausea Transmission Status: Pending to [facility] Diazepam [Valium] 5 mg PO 4X/DAY PRN PRN #30 tablet PRN Reason: Spasms Transmission Status: Sent to [facility] Primary Care Physician: Jesus Peters MD [Primary Care Provider] - Test Results: Test results from this visit will be discussed in further detail at your follow- up appointment, if applicable. Please Follow Up With: Mason Link MD When: one week. call [phone] for appt. Proposed Discharge Date: 06/27/19
[2019-06-27] MEDS: oxyCODONE 5 MG Tablet PO ×3 (12:26→22:32)
[2019-06-27] MEDS: Acetaminophen 325 MG Tablet PO ×3 (12:27→22:31)
--- NOTE | 2019-06-27 12:52 | SUR.PHASEII ---
PT. AND VISITOR INSTRUCTED ON HOW TO EMPTY BITA AND KEEP SUCTIONED.
[2019-06-27] MEDS: Lactated Ringers 1,000 ML 60 ML IV (15:31)
[2019-06-27] MEDS: diazePAM 5 MG Tablet PO (15:57)
[2019-06-27 20:05] LABS: Bedside Glucose 100 mg/dL (70-110)
--- NOTE | 2019-06-27 20:25 | NURSING ---
pt had called out c/o not feeling right. vss. head to toe assessment completed. pt felt that maybe bg could be low; bg 100. provided pt with a snack and assisted to brp. pt denied nausea, pain or dizziness.
[2019-06-27] MEDS: Docusate Sodium 100 MG Capsule PO (22:31)
[2019-06-28 01:57] VITALS: BP 135/73; PULSE 98; RESP 18; TEMP 37.2; O2SAT 97
[2019-06-28] MEDS: Enoxaparin 40 MG/0.4 ML Syringe SC (05:12)
[2019-06-28] MEDS: Levothyroxine 50 MCG Tablet PO (05:12)
[2019-06-28 06:53] LABS: Hemoglobin 11.5 g/dL (12.0-15.0); Mean Corp Hgb Conc 31.1 g/dL (32-36); Mean Corpuscular Hgb 29.7 pg (27.0-32.0); Mean Corpuscular Volume 95.6 fL (81-99); Mean Platelet Vol. 12.5 fl (6.2-12.0); Platelet Count 154 K/mm3 (150-450); RBC Distribution Width CV 13.3 % (11.6-14.6); RBC Distribution Width SD 46.7 fl (35.1-43.9); Red Blood Count 3.87 M/mm3 (4.2-5.4)
[2019-06-28 07:14] LABS: Anion Gap 5 (5-15); BUN 15 mg/dL (7-18); BUN/Creat Ratio 15.9 RATIO (10-20); Calcium,Total 8.8 mg/dL (8.5-10.1); Chloride 104 mmol/L (98-107); Creatinine, Serum 0.94 mg/dL (0.55-1.02); EST Glomerular Filtration Rate 62 mL/min (>60); Est Glom Filt Rate - Afr Amer 75 mL/min (>60); Glucose 109 mg/dL (74-106); Potassium 4.1 mmol/L (3.5-5.1); Prealbumin 15.4 mg/dL (20.0-40.0); Sodium Level 136 mmol/L (136-145)
[2019-06-28 08:06] VITALS: BP 133/71; PULSE 96; RESP 18; TEMP 37.1; O2SAT 96
--- NOTE | 2019-06-28 08:59 | PN.SURG_ITS ---
Subjective: Postop #1 Patient is resting comfortably. - Physical Exam Vitals/I&O's: Vital Signs Temp Pulse Resp BP Pulse Ox 98.8 F 96 18 133/71 H 96 06/28/19 08:06 06/28/19 08:06 06/28/19 08:06 06/28/19 08:06 06/28/19 08:06 Oxygen Flow Rate (L/min) 6 Oxygen Delivery Method Room Air Weight: 165 lb 2.02 oz Body Mass Index (BMI) 24.3 Intake and Output for Last 24 Hours 06/26/19 06/27/19 06/28/19 23:59 23:59 23:59 Intake Total 1705.33 / 2245.33 1302 / 1302 Output Total 173 / 453 865 / 865 Balance 1532.33 / 1792.33 437 / 437 Drainage 173 ml yesterday, 65 ml today. General: Alert, Oriented x3 HEENT: PERRLA, EOMI Oral: Moist Mucosa Neck: Supple Abdomen: Soft, Non-Distended Skin: Incision - left breast incision is dry and intact. No clinical evidence of hematoma. Neurological: Cranial nerves II-XII grossly intact Psych/Mental Status: Normal Affect, Appropriate Microbiology Past 72 Hours 06/27/19 09:03 Other - Other Gram Stain - Final Laboratory Results 06/27/19 19:59: POC Glucose 100 06/28/19 06:25: WBC 12.0 H, RBC 3.87 L, Hgb 11.5 L, Hct 37.0, MCV 95.6, MCH 29.7, MCHC 31.1 L, RDW Std Deviation 46.7 H, RDW Coeff of Marilou 13.3, Plt Count 154, MPV 12.5 H 06/28/19 06:25: Sodium 136, Potassium 4.1, Chloride 104, Carbon Dioxide 27.0, Anion Gap 5, BUN 15, Creatinine 0.94, Estim Creat Clear Calc 55.70, Est GFR (MDRD) Af Amer 75, Est GFR (MDRD) Non-Af 62, BUN/Creatinine Ratio 15.9, Glucose 109 H, Calcium 8.8, Prealbumin 15.4 L Current Medications Acetaminophen (Tylenol) 325 mg PO Q4H PRN PRN PRN Reason: Pain Score 1-1010 Last Admin: 06/27/19 22:31 Dose: 325 mg Documented by: Acyclovir (Zovirax) 800 mg PO BID PRN PRN PRN Reason: herpes simplex Diazepam (Valium) 5 mg PO 4X/DAY PRN PRN PRN Reason: SPASMS Last Admin: 06/27/19 15:57 Dose: 5 mg Documented by: Docusate Sodium (Colace) 100 mg PO BID [facility] Last Admin: 06/28/19 08:05 Dose: Not Given Documented by: Enoxaparin Sodium (Lovenox) 40 mg SC DAILY@0600 [facility] Last Admin: 06/28/19 05:12 Dose: 40 mg Documented by: Hydromorphone HCl (Dilaudid Inj) 0.5 mg IV Q4H PRN PRN PRN Reason: Pain Score 6-10/10 Sodium Chloride () 250 mls @ 15 mls/hr IV .[id number] PRN PRN Reason: Saline Flush Sodium Chloride () 250 mls @ 15 mls/hr IV .[id number] PRN PRN Reason: Additional IVPB Infusion Clindamycin Phosphate 600 mg/ (Dextrose) 54 mls @ 100 mls/hr IV Q8 [facility] Last Infusion: 06/28/19 05:43 Dose: Infused Documented by: Lactated Ringer's () 1,000 mls @ 60 mls/hr IV .[id number] [facility] Last Infusion: 06/28/19 06:16 Dose: 60 mls/hr Documented by: Insulin Human Lispro (Humalog Kwikpen (Bkc)) 1 - 6 unit SC Q4H PRN PRN; Protocol PRN Reason: BG>/= 180, SEE PROTOCOL Levothyroxine Sodium (Synthroid) 50 mcg PO DAILY@0600 [facility] Last Admin: 06/28/19 05:12 Dose: 50 mcg Documented by: Nutritional Formula ([place] - [place] Flavor) 1 packet PO BIDCM [facility] Last Admin: 06/28/19 08:04 Dose: Not Given Documented by: Ondansetron HCl (Zofran) 4 mg IV Q6H PRN PRN PRN Reason: NAUSEA Oxycodone HCl (Oxyir) 5 mg PO Q4H PRN PRN PRN Reason: PAIN SCORE 0-10/10 Last Admin: 06/27/19 22:32 Dose: 5 mg Documented by: Promethazine HCl (Phenergan Tablet) 25 mg PO Q4H PRN PRN PRN Reason: NAUSEA/VOMITING Sodium Chloride () 10 - 40 ml IV UD PRN PRN Reason: SALINE FLUSH Medical Necessity - Tobacco Use Smoking Status: Never smoker Tobacco Use: Non-smoker Assessment/Plan All Active Problems (Last Reviewed 06/15/19 @ 21:[address] Mason Link MD) Erythema of skin (Acute) Breast pain, left (Acute) Deformity of reconstructed breast (Acute) Abnormal electrocardiogram (Acute) Essential (primary) hypertension (Ruled-out) 1. 12 cm painful firm mass left breast reconstruction TRAM flap. 2. Left breast cancer. 3. Deformity reconstructed left breast. 4. Disproportion reconstructed left breast. 5. Acquired absence left breast. 6. Erythema of skin left breast reconstruction. 7. s/p revision reconstructed left breast with excision 12 cm painful firm mass deformity left breast reconstruction TRAM flap. Feeling better today. She is more steady on her feet with ambulation. She is tolerating po analgesia. Discharge home today. Will pull drain in the office. Incision is dry and intact. No clinical evidence of hematoma. Prealbumin was 15.4. Encourage nutritional supplementation with protein to help the healing process. Continue nyasia wrap for compression. Keep head elevated. Followup one week. Her scripts have been picked up yesterday after the surgery (Cleocin, Acidophilus Probiotic, OxyIR, Valium, Phenergan, and Colace).
== END 2019-06-28 10:24 | disposition home or self-care (01) ==
LOC: MS3 13:59 → SDC 14:22 → MS3 14:23
PROVIDERS: Anesthesiology; Admitting Provider Surgery; PCP Family Medicine; Referring Provider Surgery; Visit Provider Surgery
PROC: (CPT 19380; principal; 2019-06-27 07:00)
DX: N65.1 Disproportion of reconstructed breast (principal); N64.4 Mastodynia; T85.49XA Other mechanical complication of breast prosthesis and implant, initial encounter; Y83.8 Other surgical procedures as the cause of abnormal reaction of the patient, or of later complication, without mention of misadventure at the time of the procedure; N63.20 Unspecified lump in the left breast, unspecified quadrant; L53.9 Erythematous condition, unspecified; M19.90 Unspecified osteoarthritis, unspecified site; E03.9 Hypothyroidism, unspecified; E78.5 Hyperlipidemia, unspecified; R94.31 Abnormal electrocardiogram [ECG] [EKG]; J45.909 Unspecified asthma, uncomplicated; Z86.2 Personal history of diseases of the blood and blood-forming organs and certain disorders involving the immune mechanism; Z79.899 Other long term (current) drug therapy; Z90.12 Acquired absence of left breast and nipple; I10 Essential (primary) hypertension; R50.82 Postprocedural fever; R05 Cough; R35.0 Frequency of micturition; Z86.000 Personal history of in-situ neoplasm of breast
CPT/HCPCS: 19380; 36415; 71045; 80048; 80053; 80076; 81001; 82962; 83605; 83735; 84134; 84443; 85025; 85027; 85610; 85730; 87040; 87070; 87075; 87086; 87102; 87205; 87206; 87635; 88305; 93005; 96365; 96366; 96372; 99218; 99251; 99285; J7120; A4216; G0378; G0379; G0463; J0330; J2405; U0002

== ENCOUNTER 2019-06-28 19:49 | Emergency (ER) | payer MEDICARE, OTHER, SELFPAY ==
[2019-06-27 14:04] VITALS: BMI 24.3
[2019-06-28 19:51] VITALS: BP 149/72; PULSE 109; RESP 18; TEMP 37.4; O2SAT 93; BMI 32.3
--- NOTE | 2019-06-28 20:05 | EKG12_ITS ---
Test Reason : FEVER Blood Pressure : / mmHG Vent. Rate : 095 BPM Atrial Rate : 095 BPM P-R Int : 122 ms QRS Dur : 086 ms QT Int : 338 ms P-R-T Axes : -15 043 041 degrees QTc Int : 424 ms Normal sinus rhythm Low voltage QRS Nonspecific ST and T wave abnormality Abnormal ECG When compared with ECG of 25-JUN-2019 13:25, MANUAL COMPARISON REQUIRED, DATA IS UNCONFIRMED Confirmed by SEKOU ALBERTO, RIAZ ([id number]), editorial project manager YVES ROBERT ([id number]) on 07/08/2019 3:51:17 PM Referred By: BERRY Confirmed By:RIAZ SAPP MD
[2019-06-28 20:15] VITALS: O2SAT 96
[2019-06-28 20:17] VITALS: BP 149/72; PULSE 109; RESP 18; TEMP 37.4; O2SAT 96
--- NOTE | 2019-06-28 20:18 | ED.DCSUM_ITS ---
History of Present Illness Chief Complaint: Fever Informant: Patient Onset: Today Context: Sudden Onset Timing: Continuous - Documented fever 101.8, productive cough Quality: Respiratory symptoms Location: Productive cough Current Severity: Mild Maximum Severity: Moderate Worsened by: Unknown Relieved by: Nothing Associated Symptoms: Productive cough and documented fever Narrative: Patient is a 73-year-old woman who was operated on yesterday for deformity and complications of left trans-rectus abdominal muscle flap to the left breast. She was discharged to home today. Case was performed under general anesthesia. She contacted the surgeon of record, Dr. Mason Reyes. He recommended she come to the emergency department. Her only contact to anyone that may have been ill is weekly when she goes to the grocery store. She states when she goes outside she does wear a mask. She states she is a non-smoker. She denies history of lung problems. She does report increased urination. She denies dysuria, urgency or hematuria. She denies lower abdominal pain or back pain. She states the Rajendra-Purdy drain is bloody fluid. 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 (4) Hyperlipidemia Status: Chronic Past Medical History - Allergies and Home Meds Allergies/Adverse Reactions: Allergies chlorhexidine Allergy (Verified 06/28/19 19:54) Itching erythromycin base Allergy (Verified 06/28/19 19:54) Hives gemfibrozil Allergy (Verified 06/28/19 19:54) PT UNSURE OF REACTION hydromorphone [From Dilaudid] Allergy (Verified 06/28/19 19:54) Nausea/Vom/Diarrhea Iodinated Contrast Media Allergy (Verified 06/28/19 19:54) Rash meloxicam [From Mobic] Allergy (Verified 06/28/19 19:54) Nausea morphine Allergy (Verified 06/28/19 19:54) Nausea/Vom/Diarrhea nitrofurantoin [From Macrodantin] Allergy (Verified 06/28/19 19:54) Vomiting Penicillins Allergy (Verified 06/28/19 19:54) Hives Sulfa (Sulfonamide Antibiotics) Allergy (Verified 06/28/19 19:54) PT UNSURE OF REACTION fentanyl Adverse Reaction (Verified 06/28/19 19:54) NEEDS FOLLOW-UP latex Adverse Reaction (Verified 06/28/19 19:54) NEEDS FOLLOW-UP prednisone Adverse Reaction (Verified 06/28/19 19:54) NEEDS FOLLOW-UP zinc Adverse Reaction (Verified 06/28/19 19:54) Upset Stomach BAND AID Allergy (Uncoded 06/28/19 19:54) Rash shingle vaccine Allergy (Uncoded 06/28/19 19:54) Vomiting Primary Care Physician: Jesus Peters MD [Primary Care Provider] - Prior records reviewed: Yes Surgical History: cholecystectomy, hysterectomy, - - Bilateral Achilles tendon surgery Lives: Alone Smoking Status: Never smoker Alcohol: None Drugs: None Review of Systems General: Reports: Chills, Fever, Malaise. Denies: Subjective, Sweats, Weight loss Eyes: Denies: Visual changes - bilaterally, Blurred Vision - bilaterally ENT: Denies: Bilateral ear pain, Rhinorrhea, Sore throat Cardiovascular: Denies: Chest pain, Palpitations Respiratory: Reports: Cough, Sputum. Denies: Dyspnea, Dyspnea on exertion, Orthopnea, Paroxysmal nocturnal dyspnea Gastrointestinal: Denies: Abdominal pain, Nausea, Vomiting, Diarrhea, Melena, Hematochezia Genitourinary: Reports: Frequency. Denies: Dysuria, Hematuria Musculoskeletal: Denies: Myalgias, Arthralgias, Neck pain, Back pain, Swelling, Extremity Pain, -, - Skin: Reports: Wounds - Breast incision site according the patient looks good. There is no drainage. There is a Rajendra-Purdy drain noted. The fluid in the Rajendra-Purdy drain is bloody but not purulent.. Denies: Rash Neurological: Denies: Headache, Weakness Hematologic: Denies: Easy bruising, Easy bleeding Physical Exam Vital Signs/Narrative: Vital Signs Temp Pulse Resp BP Pulse Ox 06/28/19 20:15 96 06/28/19 19:51 99.3 F H 109 H 18 149/72 H 93 Inital Vital Signs reviewed: Yes General: Well nourished, Well developed, No Acute Distress Head: Normocephalic, Atraumatic Eyes: Perrl, EOMI. Negative for: Pale conjunctiva, Scleral icterus ENT: Moist mucous membranes, No rhinorrhea Neck: Supple, Nontender, No lymphadenopathy, No JVD Cardiovascular: Regular rhythm, No murmurs, Normal S1, Normal S2, Tachycardia Respiratory: No distress, Chest nontender, Rales - Bilateral rales posteriorly with possible egophony. There is increased vocal fremitus.. Negative for: CTA bilaterally Abdomen: Soft, Nontender, Nondistended, Normal bowel sounds Rectal: Deferred Back: Nontender, Normal Inspection. Negative for: CVA tenderness, Spinal tenderness Extremities: Nontender, No edema, - - There is no asymmetry, swelling, discoloration, leg vein distention, palpable cords or tenderness along the distribution of the deep venous system.. Negative for: Tenderness, Edema Skin: Normal color, No rash, - - Vision sight is intact. There is no erythema. There is no warmth. There is no induration or fluctuance.. Negative for: Cyanosis, Diaphoresis, Jaundice, No Trauma Neurological: Alert, Oriented x3, Cranial nerves II-XII grossly intact, Normal Strength, Normal Sensation, Normal Gait Psychological: Normal affect Diagnostic/Tx/Re-eval Chest X-Ray - ED: 1 View, Read by ED Physician, Normal, Heart, Lungs, Mediastinum, Bony Structures, No Acute Disease, - - X-ray was compared to most recent x-ray performed on June 20, 2019 Impressions Chest X-Ray 06/28/19 20:51 IMPRESSION: No acute pulmonary findings. Electronically Signed: Kojo Harden MD at 21:26 EDT Tel , Service support , 06/28/19 20:51 Chest 1 View (Portable) [RAD] Stat Laboratory Results 06/28/19 06/28/19 06/28/19 20:28 20:28 20:28 WBC RBC Hgb Hct MCV MCH MCHC RDW Std Deviation RDW Coeff of Marilou Plt Count MPV Immature Gran % (Auto) Neut % (Auto) Lymph % (Auto) [place] % (Auto) Eos % (Auto) Baso % (Auto) Absolute Neuts (auto) Absolute Lymphs (auto) Nucleated RBC % PT 14.0 INR 1.1 APTT 22.8 L Sodium 139 Potassium 4.0 Chloride 104 Carbon Dioxide 30.0 Anion Gap 5 BUN 13 Creatinine 1.13 H Estim Creat Clear Calc 46.34 Est GFR (MDRD) Af Amer 61 Est GFR (MDRD) Non-Af 50 L BUN/Creatinine Ratio 11.5 Glucose 117 H Lactic Acid Calcium 9.4 Total Bilirubin 0.50 AST 20 ALT 24 Alkaline Phosphatase 83 Total Protein 7.1 Albumin 3.1 L Globulin 4.0 Albumin/Globulin Ratio 0.8 L Urine Color Urine Clarity Urine pH Ur Specific Baxter Urine Protein Urine Glucose (UA) Urine Ketones Urine Occult Blood Urine Nitrite Urine Bilirubin Urine Urobilinogen Ur Leukocyte Esterase Urine RBC Urine WBC Ur Squamous Epith Cells Urine Bacteria Urine Mucus COVID-19 (JAYASHREE) Cancelled 06/28/19 06/28/19 06/28/19 20:30 21:10 21:10 WBC 11.2 H RBC 3.87 L Hgb 11.6 L Hct 36.8 L MCV 95.1 MCH 30.0 MCHC 31.5 L RDW Std Deviation 46.0 H RDW Coeff of Marilou 13.3 Plt Count 214 MPV 11.5 Immature Gran % (Auto) 0.500 Neut % (Auto) 75.0 H Lymph % (Auto) 13.5 L [place] % (Auto) 6.7 Eos % (Auto) 3.7 Baso % (Auto) 0.6 Absolute Neuts (auto) 8.4 H Absolute Lymphs (auto) 1.52 Nucleated RBC % 0 PT INR APTT Sodium Potassium Chloride Carbon Dioxide Anion Gap BUN Creatinine Estim Creat Clear Calc Est GFR (MDRD) Af Amer Est GFR (MDRD) Non-Af BUN/Creatinine Ratio Glucose Lactic Acid 0.7 Calcium Total Bilirubin AST ALT Alkaline Phosphatase Total Protein Albumin Globulin Albumin/Globulin Ratio Urine Color Straw Urine Clarity Clear Urine pH 5.0 Ur Specific Baxter 1.015 Urine Protein Negative Urine Glucose (UA) Normal Urine Ketones Negative Urine Occult Blood Negative Urine Nitrite Negative Urine Bilirubin Negative Urine Urobilinogen Normal Ur Leukocyte Esterase Negative Urine RBC 0 SEEN Urine WBC 0 SEEN Ur Squamous Epith Cells 0-5 SEEN Urine Bacteria 0 SEEN Urine Mucus 0 SEEN COVID-19 (JAYASHREE) Since work-up is unremarkable. There is slight elevation white count, which is insignificant and nonspecific. Dr. Mason Romero was paged since he sent the patient into the emergency department - EKG Initial EKG Interpretation: Sinus Rhythm - Sinus rhythm with a ventricular rate of 95. VA interval 122 ms. QRS duration 86 ms. QT duration 338 ms. [place] is normal. There is artifact that the computer is reading is nonspecific ST-T wave abnormality. Voltage is borderline. - Medical Decision Making Patient presents with postop fever. This may represent pneumonia, COVID, atelectasis, urinary tract infection since she reports frequency. Sepsis work-up was initiated. Dr. Link was paged. I am aware that he looked at patient's chart. He is not return to pages. Since there is no obvious source and she was discharged with antibiotics will discharge to home to follow-up with Dr. Link first part of the coming week. Patient's COVID test is still pending. If positive will contact patient. Patient was informed even if her COVID test is positive she is not a candidate for hospitalization. She informed me that she was not tested prior to surgery. She states she was told that she would be tested prior to surgery. ED Disposition - Plan for ED Patient: Disposition: Home or Assisted Living Diagnosis: Postoperative fever Instructions: ED FUO Adult Referrals: Jesus Peters MD [Primary Care Provider] - As Needed Mason Link MD [STAFF PHYSICIAN] - 1-2 Days if not improving Additional Instructions: Continue to use her incentive spirometer every 1-2 hours while awake.
[2019-06-28 20:21] VITALS: TEMP 37.8
--- NOTE | 2019-06-28 20:40 | ED.RN ---
Some labs were drawn by Denise Savage when she attempted iv status x 2. Obtained urine sample, ekg and covid sample taken and then x-ray for portable. I will then return to place iv.
--- NOTE | 2019-06-28 20:51 | RAD_ITS ---
STUDY: X-RAY CHEST REASON FOR EXAM: Female, 73 years old. fever, recent procedure to left breast with drain tube TECHNIQUE: Single frontal view of the chest. COMPARISON: 04/27/2018 FINDINGS: Drain overlying the left breast. Left breast clips. The lungs are clear and expanded. There is no demonstrated pleural abnormality. Normal size heart. Normal mediastinum and ange. Normal visualized pulmonary arteries. Normal visualized aortic arch and descending thoracic aorta. Normal visualized thoracic spine. Normal visualized ribs, clavicles, and shoulders. There is no demonstrated abnormality of the visualized soft tissue structures of the upper abdomen. RAD/Chest 1 View (Portable) IMPRESSION: No acute pulmonary findings. Electronically Signed: Kojo Harden MD at 21:26 EDT Tel , Service support ,
[2019-06-28 20:56] LABS: Bacteria 0 SEEN /hpf (None Seen); Mucous, Urine 0 SEEN /hpf (<or=2+); Red Blood Cells-Urine 0 SEEN /hpf (0-5); White Blood Cells 0 SEEN /hpf (0-5)
[2019-06-28 20:59] LABS: International Normalized Ratio 1.1; Partial Thromboplast Time 22.8 Seconds (24.1-36.2)
[2019-06-28 21:04] LABS: ALB/GLOB Ratio 0.8 RATIO (0.9-2.4); AST(SGOT) 20 U/L (15-37); Alanine Aminotransfer ALT/SGPT 24 U/L (13-56); Albumin, Serum 3.1 g/dL (3.2-5.0); Alkaline Phosphatase 83 U/L (45-117); Anion Gap 5 (5-15); BUN 13 mg/dL (7-18); BUN/Creat Ratio 11.5 RATIO (10-20); Calcium,Total 9.4 mg/dL (8.5-10.1); Chloride 104 mmol/L (98-107); Creatinine, Serum 1.13 mg/dL (0.55-1.02); EST Glomerular Filtration Rate 50 mL/min (>60); Est Glom Filt Rate - Afr Amer 61 mL/min (>60); Estimated Creatinine Clearance 46.34 ml/min; Glucose 117 mg/dL (74-106); Protein, Total 7.1 g/dL (6.4-8.2); Sodium Level 139 mmol/L (136-145)
[2019-06-28 21:15] VITALS: BP 149/72; PULSE 88; RESP 18; TEMP 37.8; O2SAT 96
[2019-06-28 21:16] LABS: Color, Urine Straw (Yellow); Glucose, Dipstick Normal (Normal); Ketone-Dipstick Negative (Negative); Leukocyte Esterase-Dipstick Negative /ul (Negative); Nitrite-Dipstick Negative (Negative); Occult Blood-Urine Negative /ul (Negative); Protein-Dipstick Negative (Negative); Specific Gravity, Urine 1.015 (1.002-1.030); Urine Bilirubin Dipstick Negative (Negative); Urine Clarity Clear (Clear); Urine Urobilinogen Normal (Normal)
[2019-06-28 21:18] LABS: Squamous Epithelial Cells - UA 0-5 SEEN /hpf (5-10)
[2019-06-28 21:20] LABS: Absolute Lymphocyte Count 1.52 X10^3/uL (0.83-4.51); Absolute Neutrophil Count 8.4 X10^3/uL (2.0-7.7); Basophil# 0.07 X10^3/uL; Basophil% 0.6 % (0-1); Eosinophil# 0.42 X10^3/uL; Eosinophils% 3.7 % (0-5); Hematocrit 36.8 % (37-47); Hemoglobin 11.6 g/dL (12.0-15.0); Lymphocyte # 1.52 X10^3/ul (4.0); Lymphocyte % 13.5 % (19-41); Mean Corp Hgb Conc 31.5 g/dL (32-36); Mean Corpuscular Volume 95.1 fL (81-99); Mean Platelet Vol. 11.5 fl (6.2-12.0); Monocyte# 0.75 X10^3/uL; Monocyte% 6.7 % (0-10); NRBC Flagged by Analyzer 0 % (0-5); Neutrophil # 8.42 X10^3/uL (2.7-7.7); Platelet Count 214 K/mm3 (150-450); RBC Distribution Width CV 13.3 % (11.6-14.6); Red Blood Count 3.87 M/mm3 (4.2-5.4); White Blood Count 11.2 K/mm3 (4.4-11.0)
[2019-06-28 21:41] LABS: Lactic Acid 0.7 mmol/L (0.4-1.9)
[2019-06-28 22:17] VITALS: BP 135/70; PULSE 90; RESP 18; TEMP 38.1; O2SAT 96
== END 2019-06-28 22:28 | disposition home or self-care (01) ==
PROVIDERS: Emergency Provider Emergency Medicine; PCP Family Medicine
DX: R50.82 Postprocedural fever (principal); R05 Cough; R35.0 Frequency of micturition; E78.5 Hyperlipidemia, unspecified; Z86.000 Personal history of in-situ neoplasm of breast; Z79.899 Other long term (current) drug therapy
CPT/HCPCS: 71045; 80053; 81001; 83605; 85025; 85610; 85730; 87040; 87086; 87635; 93005; 99284; 99285; G2023; A4216; U0002

== ENCOUNTER → 2019-07-02 14:11 | Outpatient (CLI) | payer MEDICARE, OTHER, SELFPAY ==
[2019-07-02 11:06] VITALS: BMI 32.3
[2019-07-02 17:45] LABS: Absolute Lymphocyte Count 1.91 X10^3/uL (0.83-4.51); Absolute Neutrophil Count 6.9 X10^3/uL (2.0-7.7); Basophil# 0.07 X10^3/uL; Basophil% 0.7 % (0-1); Eosinophil# 0.65 X10^3/uL; Eosinophils% 6.3 % (0-5); Hematocrit 36.4 % (37-47); Hemoglobin 11.3 g/dL (12.0-15.0); Lymphocyte # 1.91 X10^3/ul (4.0); Lymphocyte % 18.6 % (19-41); Mean Corpuscular Hgb 29.7 pg (27.0-32.0); Mean Corpuscular Volume 95.5 fL (81-99); Mean Platelet Vol. 11.8 fl (6.2-12.0); Monocyte# 0.64 X10^3/uL; Monocyte% 6.2 % (0-10); NRBC Flagged by Analyzer 0 % (0-5); Neutrophil # 6.91 X10^3/uL (2.7-7.7); Neutrophil % 67.4 % (47-70); Platelet Count 305 K/mm3 (150-450); RBC Distribution Width CV 13.6 % (11.6-14.6); RBC Distribution Width SD 46.7 fl (35.1-43.9); Red Blood Count 3.81 M/mm3 (4.2-5.4); White Blood Count 10.3 K/mm3 (4.4-11.0)
[2019-07-02 18:00] LABS: Anion Gap 7 (5-15); BUN 18 mg/dL (7-18); BUN/Creat Ratio 19.1 RATIO (10-20); Calcium,Total 9.2 mg/dL (8.5-10.1); Chloride 108 mmol/L (98-107); Creatinine, Serum 0.94 mg/dL (0.55-1.02); EST Glomerular Filtration Rate 62 mL/min (>60); Est Glom Filt Rate - Afr Amer 75 mL/min (>60); Glucose 114 mg/dL (74-106); Sodium Level 142 mmol/L (136-145)
== END ==
PROVIDERS: PCP Family Medicine; Visit Provider Family Medicine
DX: R50.9 Fever, unspecified (principal)
CPT/HCPCS: 36415; 80048; 85025

== ENCOUNTER 2019-07-28 14:35 | Observation (INO) | payer MEDICARE, OTHER, SELFPAY ==
[2019-07-16 09:14] VITALS: BMI 32.3
[2019-07-27 11:58] LABS: Probe Check PASS; Specimen Processing Control PASS
[2019-07-28] VITALS (12 sets, daily range): BP systolic 142–169; BP diastolic 62–86; PULSE 60–96; RESP 14–18; TEMP 36.5–37.3; O2SAT 95–100; BMI 23.8
--- NOTE | 2019-07-28 | IMM_PTH ---
PATIENT: DEEJAY WOLF LOC: MS3 U#:[id number] AGE/SX: 73/F ROOM: MS305 RE07/28/[address]: Dr. Mason Link MD : 1945 BED: 1 DIS: 07/29/2019 SPEC #: [id number] RECD: 07/31/19 11:36 STATUS: MARSHALL REQ #: [id number] SHIRLEY: 07/28/19 00:[address]: Mason Link DEPT: IMMUNOHISTOCHEMISTRY RECD BY: Geeta Farfan ENTERED: 07/31/19 11:37 SP TYPE: IMMUNO OTHR DR: Dr. Jesus Peters MD Tissues: B - Right breast, NOS Procedures: E-CAD (initial) CK8 (add) E-CAD (add) Pankeratin (add) PHYSICIAN & INSTITUTION [place] [address] SPECIMEN INFORMATION: Tissue Source: B - Right breast, mastectomy Clinical Info: Left breast cancer Specimen Number: [id number] B6 & B12 CPT code: 72097, 19618 x5 METHODOLOGY: Deparaffinized sections of prefer/formalin-fixed tissue or PAP/DQ stained slides are incubated with monoclonal/polyclonal antibodies/oligonucleotide probes. Localization is made via biotin free immunoperoxidase method. Appropriate controls are performed and reacted as expected. Results on target cell population are indicated in the following table: RESULTS: ANTIBODY / CLONE RESULT Block B6 E-Cad (ECH-6) negative AE1-3 (AE1/AE3/PCK26) positive CK8 ([id number]) positive Block B12 E-Cad (ECH-6) negative AE1-3 (AE1/AE3/PCK26) positive CK8 ([id number]) positive These tests were developed and their performance characteristics determined by [facility]. They may not have been cleared or approved by the U.S. Food and Drug Administration. The FDA has determined that such clearance or approval is not necessary. The above immunohistochemical/dualISH markers are ordered and reviewed by the Pathologist. INTERPRETATION: B. Right breast, mastectomy: Multifocal atypical lobular hyperplasia. SJ:smith 08/01/19
[2019-07-28 10:01] LABS: Bedside Glucose 98 mg/dL (70-110)
[2019-07-28] MEDS: Acetaminophen 500 MG Tablet 1000 MG PO ×2 (10:08→18:03)
[2019-07-28] MEDS: Gabapentin 600 MG Tablet PO (10:08)
[2019-07-28] MEDS: Scopolamine 1mg/72hr Patch 1 PATCH TRANSDERM. (10:09)
[2019-07-28] MEDS: levoFLOXacin IV 500 MG/100 ML BAG 100 MG IV (10:25)
[2019-07-28] MEDS: Lactated Ringers 1,000 ML 40 ML IV (10:25)
--- NOTE | 2019-07-28 10:36 | PCM.HP.BLA ---
History and Physical Date of Admission: 07/28/19 HISTORY OF PRESENT ILLNESS 73 year old woman presents for evaluation of her breast reconstruction after developing left breast cancer in 2013. She had breast reconstruction with a TRAM flap. Over the last year, she has noted increasing pain and hardness in the superior pole of her left breast reconstruction. Just recently she started developing some redness on her skin overlying the hard area superiorly. Her left breast mastectomy and reconstruction with a TRAM flap was in April,. 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 This hard painful mass involves the majority of the superior pole of her left breast reconstruction. She denies fever. She denies any drainage. MRI was done on 06/20/19 which showed large circumscribed mixed signal intensity lesions within the left breast. Superiorly, this large mass measures approximately 9.5 cm x 5.5 cm. The mass extends inferiorly into 2 separate mixed signal intensity masses medially and laterally. The medial mass measures 4.7 cm x 3.5 cm and the lateral mass measures 6.2 cm x 5.7 cm. Given the circumscribed morphology of these masses and the next signal intensity with septations, these masses most likely represent postoperative seromas. An ultrasound of the left breast with percutaneous ultrasound-guided aspiration would be appropriate to further evaluate these masses. She denies any recent infection. She went to surgery on 06/27/19 where she underwent revision reconstructed left breast with excision 12 cm painful firm mass deformity left breast reconstruction TRAM flap and placement AmnioFill Placental Connective Tissue Powder (1000 mg). Postoperatively she had persistent pain and firmness in her left breast reconstruction. Since most of the TRAM flap was removed from the surgery on 06/27/19 and with her persistent pain and firmness, she wants the rest of the TRAM flap removed with a completion mastectomy. 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 Prophylactic mastectomy was discussed with her and she wants to proceed. Then she will obtain external prostheses bilaterally. 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 Open wound of lateral abdominal wall Osteoarthritis Personal history of breast cancer UTI (urinary tract infection) Vitamin D deficiency Neoplasm of skin of ear Neoplasm of skin of nose Right wrist fracture Essential (primary) hypertension Late effect of certain other external causes PAST SURGICAL HISTORY excision of lesion Status post transverse rectus abdominis muscle (TRAM) flap breast reconstruction Achilles tendon repair cholecystectomy hysterectomy left breast biopsy left mastectomy Revision reconstructed left breast with excision 12 cm painful firm mass deformity left breast reconstruction TRAM flap and placement AmnioFill Placental Connective Tissue Powder (1000 mg) - 06/27/19 ALLERGIES erythromycin base [Erythromycin Base] Penicillins procaine HCl [From Novocain] zoster vaccine live [From Zostavax (PF)] gemfibrozil hydromorphone HCl [From Dilaudid] meloxicam morphine nitrofurantoin macrocrystalline [From Macrodantin] prednisone Sulfa (Sulfonamide Antibiotics) fentanyl BAND AID Clindamycin MEDICATIONS Levothyroxine Sodium [Levoxyl] evolocumab FAMILY HISTORY Mother -Colon cancer, Hypertension, Diabetes, Kidney disease, Heart disease Father - Heart disease, Hyperlipidemia, Kidney disease, Myocardial infarction Brother - Myocardial infarction Sister - Myocardial infarction Sister - Myocardial infarction Sister - Myocardial infarction SOCIAL HISTORY Smoking Status: Never smoker REVIEW OF SYSTEMS General - Denies fever, anorexia and weight loss. Eyes - has cataracts. Denies glaucoma. ENT - Denies nasal congestion and sore throat. Cardiovascular - Denies chest pain or discomfort, fatigue, lightheadedness and shortness of breath with exertion. Respiratory - Denies cough and shortness of breath. Gastrointestinal - Denies nausea, vomiting, diarrhea, constipation and bloody stools. Genitourinary - Denies blood in urine, urinary frequency, other abnormal vaginal bleeding and pelvic pain. Musculoskeletal - Denies joint pain, back pain, stiffness and muscle weakness. Has arthritis. Skin - no suspicious lesions. Denies skin cancer. Neuro - Denies headaches and weakness. Psych - Denies anxiety and depression. Endocrine - Denies excessive urination and excessive thirst. has history of left breast cancer. Has enlarging painful left breast reconstruction TRAM flap mass. Hematologic - Denies bleeding and abnormal bruising. PHYSICAL EXAMINATION General - well developed, well nourished, in no acute distress. Head - normocephalic and atraumatic. No suspicious lesions noted. Eyes - PERRL/EOM intact, conjunctiva and sclera clear. Ears - no suspicious lesions noted. Nose - no suspicious lesions noted at this time. Mouth - No suspicious lesions noted Neck - no masses, thyromegaly, or abnormal cervical nodes. No suspicious lesions noted. Chest wall - No suspicious lesions noted. Breasts - The left breast shows a well healed TRAM flap. There is persistent tenderness in her left breast reconstruction mostly superiorly and laterally. There is no evidence of infection. There is no evidence of hematoma. There is scattered palpable firmness that is tender to palpation. Right breast shows no masses. Slight Stage II ptosis present. Distance from the midclavicular line on the right to the nipple is 26 cm and from the nipple to the inframammary fold is 7 cm. The nipple areolar complex diameter is 5 cm. No inframammary intertrigo seen. No breast masses palpable on the right. No axillary adenopathy. Lungs - clear bilaterally to auscultation. Heart - regular rate and rhythm. Abdomen - normal bowel sounds; no hepatosplenomegaly no ventral,umbilical hernias or masses noted. has lower abdominal wall TRAM flap scar that is healed. Good abdominal wall contour noted. on the left TRAM flap scar laterally was an open surgical wound that has healed. Pulses - pulses normal in all 4 extremities. Extremities - no clubbing, cyanosis, edema, or deformity noted with normal full range of motion of all joints. No suspicious lesions noted Neuro - cranial nerves II-XII grossly intact. Skin - no rashes. Cervical nodes - no significant adenopathy. Axillary nodes - no significant adenopathy. Inguinal - no significant adenopathy. Psych - alert and cooperative; normal mood and affect; normal attention span and concentration. ASSESSMENT 1. Persistent painful left breast reconstruction s/p revision reconstructed left breast with excision 12 cm painful firm mass deformity left breast reconstruction TRAM flap and placement AmnioFill Placental Connective Tissue Powder (1000 mg). 2. Left breast cancer. 3. Cancer phobia right breast. 4. Deformity reconstructed left breast. 5. Disproportion reconstructed left breast. 6. Acquired absence left breast. PLAN Patient has persistent pain in her left breast reconstruction after her previous surgery on 06/27/19. The pain is exacerbated with range of motion of her shoulder. Because most of the TRAM flap was removed last month, it was recommended to the patient to proceed with completion mastectomy on the left side. Discussed with her that the pain may be persistent after the completion mastectomy. She states she would be willing to go to Pain Management if that occurs. She also has developed cancer phobia on the right breast and has concerns that she may develop cancer on that side. She wants to proceed with a prophylactic mastectomy at the same time so she doesn't have to worry about additional surgery in the future if cancer were to develop in the right breast. She will then obtain external prostheses after discharge. Tissue removed will be sent to Pathology for analysis to rule out carcinoma. She will have drains in for several days and be maintained on antibiotics until the drains are removed. She will wear a chest wall compression nyasia wrap postoperatively. Surgery will be done under general anesthesia with a surgical observation overnight stay in the hospital. Patient was informed of the risks and complications of the procedure including alternatives to surgery. These were discussed with the patient personally. Patient voices understanding and wishes to proceed. Some of the risks and complications were included in a form from the [employer]. Procedure Criteria Procedure Type: Essential Procedure Essential: Yes Criteria Statement: On 05/06/2019 the [facility] ([facility]) Public Order signed by [facility] Director Tootie Dunham M.D., regarding the Management of Non-Essential Surgeries and Procedures for the purpose of preserving Personal Protective Equipment (PPE) and critical hospital capacity and resources within [place] went into effect as of 05/07/2019 at 5:00PM. According to the [facility] Public Order: This action will remain in full force and effect until the State of Emergency declared by the Governor no longer exists or the Director of the [facility] rescinds or modifies this Order. This [facility] order stated all non-essential or elective surgeries and procedures that utilize PPE should be delayed unless there is undue risk to the current or future health of a patient. After reviewing the aforementioned [facility] Public Order and the patient's clinical case, I have determined that the scheduled procedure meets the criteria to go forward. Risk to Patient if Procedure Delayed: Risk of rapidly worsening to severe symptoms if delayed
[2019-07-28 10:38] LABS: Magnesium 2.2 mg/dL (1.6-2.6)
[2019-07-28] MEDS: Scopolamine 1mg/72hr Patch 1 PATCH TD (11:30)
--- NOTE | 2019-07-28 11:30 | BREAST_PTH ---
PATIENT: DEEJAY WOLF LOC: MS3 U#:[id number] AGE/SX: 73/F ROOM: CT305 RE07/28/[address]: Dr. Mason Link MD : 1945 BED: 1 DIS: 07/29/2019 SPEC #: [id number] RECD: 07/28/19 13:55 STATUS: MARSHALL RERachel #: [id number] SHIRLEY: 07/28/19 11:[address]: Mason Link DEPT: SURGICAL PATHOLOGY RECD BY: Elisabeth Carrasco ENTERED: 07/28/19 14:56 SP TYPE: BREAST OTHR DR: Dr. Jesus Peters MD Tissues: A - Left breast, NOS B - Right breast, NOS Procedures: Surgery Specimen Level V HEADER OPERATION: ERAS, revision reconstructed left breast with completion mastectomy PRE-OP DIAGNOSIS: Left breast cancer; cancer phobia right breast; deformity and disproportion TISSUE SUBMITTED: A - Tissue left breast, B - Right breast MICROSCOPIC DIAGNOSIS A. Tissue left breast: Extensive fat necrosis, chronic inflammation and foreign body giant cell reaction. Skin, no pathologic diagnosis. Negative for malignancy in the sections examined. B. Right breast, simple mastectomy: Multifocal atypical lobular hyperplasia. Fibrocystic changes and intraductal hyperplasia with focal atypia. A minute fibroadenoma (0.5 cm in greatest dimension). Frequent microcalcifications. Nipple, no pathologic diagnosis. See comment. ERICA:smith 07/31/19 COMMENT B. Immunohistochemistry ([id number]) supports the above diagnosis. 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 MICROSCOPIC DESCRIPTION Slides are reviewed. GROSS DESCRIPTION A - Received in fixative is one container labeled with the patient's name and designated tissue left breast. The specimen consists of a piece of skin with underlying tissue measuring 13 x 6 cm and up to 4 cm in thickness. Also present in the container are multiple detached pieces of adipose tissue measuring in aggregate 11 x 11 x 3 cm. Sections do not reveal any mass lesion. Custody Assistant sections are submitted in six cassettes. Cassette 1 contains the skin piece. / SJ:smith 07/29/19 B- Received in fixative is one container labeled with the patient's name and designated right breast. The specimen consists of a simple mastectomy specimen consisting of breast tissue with overlying skin piece. The breast tissue measures 21 x 16 x 5 cm and the skin piece measures 11 x 12.5 cm. The nipple appears to be inverted and measurers up to 2 cm in greatest dimension. The specimen is inked as follows: anterior - yellow, posterior - black, superior - blue, inferior - green, medial - red and lateral??orange. Detached fragments of additional tissue are also noted measuring in aggregate 6 x 6 x 2 cm. Sections reveal yellow adipose cut surfaces mixed with fibrous area and two of the areas show a few minute cyst formation. No obvious mass lesion is identified. Sections will be submitted after overnight fixation. / SJ:smith 07/29/19 Custody Assistant sections are submitted in 12 cassettes as follows: 1 & 2 - nipple, entirely submitted, 35?-?medial portion breast, 6-9 - middle portion breast, 10-12 - lateral portion breast. / ERICA:smith 07/30/19 TC:5 CPT: 71984, 47619
--- NOTE | 2019-07-28 14:28 | OP.PCM_ITS ---
Report of Operation Date of Procedure: 07/28/19 Pre-Operative Diagnosis: 1. Persistent painful firm mass TRAM flap deformity left breast reconstruction s/p revision reconstructed left breast with excision 12 cm painful firm mass deformity left breast reconstruction TRAM flap and placement AmnioFill Placental Connective Tissue Powder (1000 mg). 2. Left breast cancer. 3. Cancer phobia right breast. 4. Deformity reconstructed left breast. 5. Disproportion reconstructed left breast. 6. Acquired absence left breast. 7. Planned acquired absence right breast. Post-Operative Diagnosis: Same. Surgery/Procedure Performed:: 1. Revision left breast reconstruction with excision residual painful firm mass TRAM flap deformity and completion mastectomy. 2. Prophylactic mastectomy right breast. Description of Surgical Findings:: 73 year old woman presents for evaluation of her breast reconstruction after developing left breast cancer in 2013. She had breast reconstruction with a TRAM flap. Over the last year, she has noted increasing pain and hardness in the superior pole of her left breast reconstruction. Just recently she started developing some redness on her skin overlying the hard area superiorly. Her left breast mastectomy and reconstruction with a TRAM flap was in April,. 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 This hard painful mass involves the majority of the superior pole of her left breast reconstruction. She denies fever. She denies any drainage. MRI was done on 06/20/19 which showed large circumscribed mixed signal intensity lesions within the left breast. Superiorly, this large mass measures approximately 9.5 cm x 5.5 cm. The mass extends inferiorly into 2 separate mixed signal intensity masses medially and laterally. The medial mass measures 4.7 cm x 3.5 cm and the lateral mass measures 6.2 cm x 5.7 cm. Given the circumscribed morphology of these masses and the next signal intensity with septations, these masses most likely represent postoperative seromas. An ultrasound of the left breast with percutaneous ultrasound-guided aspiration would be appropriate to further evaluate these masses. She denies any recent infection. She went to surgery on 06/27/19 where she underwent revision reconstructed left breast with excision 12 cm painful firm mass deformity left breast reconstruction TRAM flap and placement AmnioFill Placental Connective Tissue Powder (1000 mg). Postoperatively she had persistent pain and firmness in her left breast reconstruction. Since most of the TRAM flap was removed from the surgery on 06/27/19 and with her persistent pain and firmness, she wants the rest of the TRAM flap removed with a completion mastectomy. 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 Prophylactic mastectomy was discussed with her and she wants to proceed. Then she will obtain external prostheses bilaterally. Patient was informed of the risks and complications of the procedure including alternatives to surgery. These were discussed with the patient personally. Patient voices understanding and wishes to proceed. Some of the risks and complications were included in a form from the [employer]. I used Jeffrey absorbable hemostat, (I used 4 vials, 2 in each breast). Reference Number -[id number]. Lot Number - [id number]. Expiration - November 17, 2023. voltage regulator assembler: Wendy Gamble. Type of Anesthesia:: General Specimen's removed: 1. Left breast and TRAM flap tissue to Pathology. 2. Right breast tissue to Pathology. Drains: Emre x2 (one in each breast). Estimated Blood Loss (mL): 150 ml. Description of Procedure: Patient was placed in sitting position in preop area and markings were made. I marked the inframammary fold and horizontal elliptical markings around the nipple area on the right and the TRAM flap skin paddle on the left. Patient lifted her arms up to make sure not too much skin will be removed laterally. Patient was then taken to OR in supine position and was placed under general anesthesia. The breasts were prepped and draped in the usual fashion. SCD's were placed for DVT prophylaxis. Perioperative antibiotics were given intravenously. A murry catheter was placed. Using xylocaine with epinephrine, the horizontal elliptical markings were infiltrated. After waiting 5 minutes for the anesthetic to take effect, I proceeded with prophylactic mastectomy first on the left side because she is more symptomatic on the left side and then will proceed to the right side. Elliptical incisions were made into the subcutaneous tissue. I dissected the left breast tissue at the level of Nitish's fascia down to the pectoralis major muscular fascia. I dissected superiorly to the clavicle and medially to the sternum and inferiorly to the inframammary fold and laterally to the anterior axillary line. Some remaining left breast tissue along with the residual painful firm mass TRAM flap was then dissected off the pectoralis major muscular fascia and sent to Pathology for analysis to rule out carcinoma. The left breast wound was irrigated with Irrisept 0.05% Chlorhexidine solution. After waiting a minute, the wound was irrigated with saline. Hemostasis was obtained with electrocautery. I placed a size 15 Emre drain through separate stab incision inferolaterally and secured to the skin with 3-0 Nylon suture. I then sprayed Jeffrey absorbable hemostat into the left breast wound to minimize seroma formation. I used 2 vi als. The left breast wound was then closed in a layered fashion with 3-0 Monocryl interrupted sutures for the deep dermis and subcutaneous tissue. The skin was approximated with 3-0 V lock unidirectional barbed running subcuticular suture followed by Histoacryl skin tissue adhesive. I then proceeded with prophylactic mastectomy on the right side. Elliptical incision was made into the subcutaneous tissue. I dissected the right breast tissue at the level of Nitish's fascia down to the pectoralis major muscular fascia. I dissected superiorly to the clavicle and medially to the sternum and inferiorly to the inframammary fold and laterally to the anterior axillary line. The right breast tissue was then dissected off the pectoralis major muscular fascia and sent to Pathology for analysis to rule out carcinoma. The right breast wound was irrigated with Irrisept 0.05% Chlorhexidine solution. After waiting a minute, the wound was irrigated with saline. Hemostasis was obtained with electrocautery. I placed a size 15 Emre drain through separate stab incision inferolaterally and secured to the skin with 3-0 Nylon suture. I then sprayed Jeffrey absorbable hemostat into the right breast wound to minimize seroma formation. I used 2 vials. The right breast wound was then closed in a layered fashion with 3-0 Monocryl interrupted sutures for the deep dermis and subcutaneous tissue. The skin was approximated with 3-0 V lock unidirectional barbed running subcuticular suture followed by Histoacryl skin tissue adhesive. Kerlix gauze dressing was applied followed by ABD pads and a compression JOSE wrap. Patient tolerated the procedure well and was sent to PACU in satisfactory condition. Patient will be sent upstairs for continued postop care. Grafts/Implants Used: None. - Complications None. - Admit VTE Documentation VTE Present on Admission: No VTE Mechan Device Prophylaxis: SCD's VTE Pharm Prophylaxis ordered?: Yes Surgery Charges CPT - 95779-60 ICD-10 - N63.20, N64.4, D05.12, Z90.12, N65.0, N65.1 16049-02 F40.298, Z90.11, D05.12, N65.1
[2019-07-28] MEDS: Lactated Ringers 1,000 ML 60 ML IV (16:56)
[2019-07-28] MEDS: Ondansetron ODT 4 MG Tablet PO (17:22)
[2019-07-28] MEDS: oxyCODONE 5 MG Tablet PO (18:05)
[2019-07-28] MEDS: HYDROmorphone 1 MG/ML Syringe IV (19:28)
[2019-07-28] MEDS: Docusate Sodium 100 MG Capsule PO (20:42)
[2019-07-29] MEDS: Acetaminophen 500 MG Tablet 1000 MG PO ×3 (00:15→12:38)
[2019-07-29] MEDS: HYDROmorphone 1 MG/ML Syringe IV (00:17)
[2019-07-29 00:24] VITALS: BP 131/68; PULSE 80; RESP 18; TEMP 37.2; O2SAT 97; BMI 23.8
[2019-07-29 04:54] VITALS: BP 135/60; PULSE 87; RESP 16; TEMP 36.8; O2SAT 97; BMI 23.8
[2019-07-29] MEDS: Levothyroxine 50 MCG Tablet PO (04:59)
[2019-07-29 05:10] LABS: Hematocrit 35.6 % (37-47); Mean Corp Hgb Conc 30.9 g/dL (32-36); Mean Corpuscular Hgb 30.4 pg (27.0-32.0); Mean Corpuscular Volume 98.3 fL (81-99); Mean Platelet Vol. 11.8 fl (6.2-12.0); Platelet Count 212 K/mm3 (150-450); RBC Distribution Width CV 13.8 % (11.6-14.6); RBC Distribution Width SD 50.4 fl (35.1-43.9); Red Blood Count 3.62 M/mm3 (4.2-5.4); White Blood Count 10.5 K/mm3 (4.4-11.0)
[2019-07-29 05:26] LABS: Anion Gap 3 (5-15); BUN 14 mg/dL (7-18); BUN/Creat Ratio 14.8 RATIO (10-20); Calcium,Total 8.5 mg/dL (8.5-10.1); Chloride 106 mmol/L (98-107); Creatinine, Serum 0.95 mg/dL (0.55-1.02); EST Glomerular Filtration Rate 61 mL/min (>60); Est Glom Filt Rate - Afr Amer 74 mL/min (>60); Estimated Creatinine Clearance 55.12 ml/min; Glucose 120 mg/dL (74-106); Potassium 4.1 mmol/L (3.5-5.1); Prealbumin 17.3 mg/dL (20.0-40.0); Sodium Level 138 mmol/L (136-145)
[2019-07-29 07:05] VITALS: O2SAT 96
[2019-07-29] MEDS: Gabapentin 100 MG Capsule 200 MG PO ×2 (08:10→12:38)
[2019-07-29 09:00] VITALS: BP 107/50; PULSE 75; RESP 16; TEMP 37.1; O2SAT 96; BMI 23.8
[2019-07-29] MEDS: Lactated Ringers 1,000 ML 60 ML IV (10:08)
[2019-07-29] MEDS: Docusate Sodium 100 MG Capsule PO (10:09)
[2019-07-29] MEDS: Enoxaparin 40 MG/0.4 ML Syringe SC (10:09)
[2019-07-29 12:33] VITALS: BMI 23.8
--- NOTE | 2019-07-29 12:51 | PN.SURG_ITS ---
Subjective: Postop #1 Patient is resting comfortably. - Physical Exam Vitals/I&O's: Vital Signs Temp Pulse Resp BP Pulse Ox 98.8 F 75 16 107/50 L 96 07/29/19 09:00 07/29/19 09:00 07/29/19 09:00 07/29/19 09:00 07/29/19 09:00 Oxygen Flow Rate (L/min) 6 Oxygen Delivery Method Room Air Weight: 160 lb 14.999 oz Body Mass Index (BMI) 23.8 Intake and Output for Last 24 Hours 07/27/19 07/28/19 07/29/19 23:59 23:59 23:59 Intake Total 1359.33 / 1359.33 1600 / 1600 Output Total 295 / 295 1890 / 1890 Balance 1064.33 / 1064.33 -290 / -290 Drainage 45 ml yesterday, 90 ml today. General: Alert, Oriented x3 HEENT: PERRLA, EOMI Oral: Moist Mucosa Neck: Supple Abdomen: Soft, Non-Distended Skin: Incision - bilateral mastectomy incisions are dry and intact. No clinical evidence of hematoma. Neurological: Cranial nerves II-XII grossly intact Psych/Mental Status: Normal Affect, Appropriate Laboratory Results 07/29/19 04:56: WBC 10.5, RBC 3.62 L, Hgb 11.0 L, Hct 35.6 L, MCV 98.3, MCH 30.4, MCHC 30.9 L, RDW Std Deviation 50.4 H, RDW Coeff of Marilou 13.8, Plt Count 212, MPV 11.8 07/29/19 04:56: Sodium 138, Potassium 4.1, Chloride 106, Carbon Dioxide 29.0, Anion Gap 3 L, BUN 14, Creatinine 0.95, Estim Creat Clear Calc 55.12, Est GFR (MDRD) Af Amer 74, Est GFR (MDRD) Non-Af 61, BUN/Creatinine Ratio 14.8, Glucose 120 H, Calcium 8.5, Prealbumin 17.3 L Current Medications Acetaminophen (Tylenol) 1,000 mg PO Q6 [facility] Last Admin: 07/29/19 12:38 Dose: 1,000 mg Documented by: Acyclovir (Zovirax) 800 mg PO TID PRN PRN PRN Reason: herpes simplex Docusate Sodium (Colace) 100 mg PO BID [facility] Last Admin: 07/29/19 10:09 Dose: 100 mg Documented by: Enoxaparin Sodium (Lovenox) 40 mg SC DAILY [facility] Last Admin: 07/29/19 10:09 Dose: 40 mg Documented by: Enteral Nutritional Formula (Ensure Surgery) 237 ml PO TIDCM [facility] Last Admin: 07/29/19 12:22 Dose: Not Given Documented by: Gabapentin (Neurontin) 200 mg PO TIDCM [facility] Last Admin: 07/29/19 12:38 Dose: 200 mg Documented by: Hydromorphone HCl (Dilaudid Inj) 0.5 - 1 mg IV Q3H PRN PRN PRN Reason: Pain Score 6-10/10 Last Admin: 07/29/19 00:17 Dose: 1 mg Documented by: Lactated Ringer's () 1,000 mls @ 60 mls/hr IV .[id number] [facility] Last Admin: 07/29/19 10:08 Dose: 60 mls/hr Documented by: Sodium Chloride () 250 mls @ 15 mls/hr IV .[id number] PRN PRN Reason: Saline Flush Sodium Chloride () 250 mls @ 15 mls/hr IV .[id number] PRN PRN Reason: Additional IVPB Infusion Insulin Human Lispro (Humalog Kwikpen (Bkc)) 1 - 6 unit SC Q4H PRN PRN; Protocol PRN Reason: BG>/= 180, SEE PROTOCOL Levothyroxine Sodium (Synthroid) 50 mcg PO DAILY@0600 [facility] Last Admin: 07/29/19 04:59 Dose: 50 mcg Documented by: Magnesium Oxide (Mag-Ox 400) 400 mg PO BID PRN PRN PRN Reason: Constipation Ondansetron HCl (Zofran Odt) 4 mg PO Q6H PRN PRN PRN Reason: NAUSEA Last Admin: 07/28/19 17:22 Dose: 4 mg Documented by: Oxycodone HCl (Oxyir) 5 - 10 mg PO Q4H PRN PRN PRN Reason: Pain Score 4-10/10 Last Admin: 07/28/19 18:05 Dose: 10 mg Documented by: Promethazine HCl (Phenergan Tablet) 25 mg PO 4X/DAY PRN PRN PRN Reason: NAUSEA Sodium Chloride () 10 - 40 ml IV UD PRN PRN Reason: SALINE FLUSH Tramadol HCl (Ultram) 50 mg PO TID PRN PRN Reason: Pain Score 1-3/10 Medical Necessity - Tobacco Use Smoking Status: Never smoker Tobacco Use: Non-smoker Assessment/Plan All Active Problems (Last Reviewed 07/18/19 @ 13:[address] Mason Link MD) Acquired absence of right breast and nipple (Acute) Breast pain, left (Resolved) Deformity of reconstructed breast (Acute) Abnormal electrocardiogram (Acute) Erythema of skin (Resolved) Essential (primary) hypertension (Ruled-out) 1. Persistent painful firm mass TRAM flap deformity left breast reconstruction s/p revision reconstructed left breast with excision 12 cm painful firm mass deformity left breast reconstruction TRAM flap and placement AmnioFill Placental Connective Tissue Powder (1000 mg). 2. Left breast cancer. 3. Cancer phobia right breast. 4. Deformity reconstructed left breast. 5. Disproportion reconstructed left breast. 6. Acquired absence left breast. 7. Planned acquired absence right breast. 8. s/p revision left breast reconstruction with excision residual painful firm mass TRAM flap deformity and completion mastectomy and prophylactic mastectomy right breast. Incisions are dry and intact. No clinical evidence of hematoma. Prealbumin was 17.3. Encourage nutritional supplementation with protein to help the healing process. Walden removed. Voiding without difficulty. Discharge home today. Followup office one week. Wrote script for Doxycycline until the drains are removed. Keep head elevated. No heavy lifting.
--- NOTE | 2019-07-29 12:59 | NURSING ---
dr galeano and electric fork operator in and pt ok'd to go home today. drsg changed to b/l breasts and rewrapped with nyasia wrap.
--- NOTE | 2019-07-29 13:02 | DCINST_ITS ---
You will use the following diet at home:: No restrictions, Other - encourage nutritional supplementation with protein to help the healing process. Discharge Activity: May not drive while taking narcotic pain medications., May Not Shower - until the drain is removed., - - keep head elevated. no heavy lifting. May shower in (days): 10 - after drain is removed. May resume sexual activity in: No Restrictions Weight Bearing Status: Weight bearing as tolerated Lifting Restrictions: 20 lbs. Keep extremity elevated above heart level: - - elevate head. Call your doctor if your incision/area has: Continuous Slow Oozing, Sudden Increased Bleeding, Increased Pain/ Swelling, Increased Redness, Foul Smelling Discharge, Swelling at the incision site Call your doctor if you observe: Fever of 101 or Higher, Coldness, Increased Pain, Shortness of breath, Chest pain, Increased palpitations (irregular heartbeat), Calf discomfort Suture Line Care: - - dry dressings daily. Change Dressing in (Days):: 1 - dry dressings daily. Cleanse incision/area with: - - may get incisions wet in the shower after the drains are removed. Drain: Suction - juany drain x2 to bulb suction. empty and record output daily. Allergies/Adverse Reactions: Allergies clindamycin Allergy (Intermediate, Verified 07/28/19 10:00) HIVES, BLISTERS, ITCHING chlorhexidine Allergy (Verified 07/28/19 10:00) Itching erythromycin base Allergy (Verified 07/28/19 10:00) Hives gemfibrozil Allergy (Verified 07/28/19 10:00) PT UNSURE OF REACTION hydromorphone [From Dilaudid] Allergy (Verified 07/28/19 10:00) Nausea/Vom/Diarrhea Iodinated Contrast Media Allergy (Verified 07/28/19 10:00) Rash meloxicam [From Mobic] Allergy (Verified 07/28/19 10:00) Nausea morphine Allergy (Verified 07/28/19 10:00) Nausea/Vom/Diarrhea nitrofurantoin [From Macrodantin] Allergy (Verified 07/28/19 10:00) Vomiting Penicillins Allergy (Verified 07/28/19 10:00) Hives Sulfa (Sulfonamide Antibiotics) Allergy (Verified 07/28/19 10:00) PT UNSURE OF REACTION fentanyl Adverse Reaction (Verified 07/28/19 10:00) NEEDS FOLLOW-UP latex Adverse Reaction (Verified 07/28/19 10:00) NEEDS FOLLOW-UP prednisone Adverse Reaction (Verified 07/28/19 10:00) NEEDS FOLLOW-UP zinc Adverse Reaction (Verified 07/28/19 10:00) Upset Stomach BAND AID Allergy (Uncoded 07/28/19 10:00) Rash shingle vaccine Allergy (Uncoded 07/28/19 10:00) Vomiting Medications to take at Discharge Levothyroxine Sodium [Levoxyl] 50 mcg PO DAILY 03/26/14 evolocumab 420 mg/3.5 mL subcutaneous wearable injector 420 mg SC .1xmonth ml 08/14/18 Acyclovir [Zovirax] 800 mg PO PRN PRN 06/25/19 proMETHazine tablet [Phenergan tablet] 25 mg PO 4X/DAY PRN PRN #30 tab 06/27/19 tramadol 50 mg tablet 50 mg PO TID PRN #20 tab 07/16/19 Doxycycline [Vibramycin] 100 mg PO BID #20 cap 07/29/19 Gabapentin [Neurontin] 200 mg PO TIDCM cap 07/29/19 Lactobacillus Acidophilus/Fos [Acidophilus Probiotic Tablet] 1 ea PO BID #20 tab 07/29/19 The following prescriptions were given: Lactobacillus Acidophilus/Fos [Acidophilus Probiotic Tablet] 1 ea PO BID #20 tab Transmission Status: Pending to [facility] Doxycycline [Vibramycin] 100 mg PO BID #20 cap Transmission Status: Pending to [facility] Primary Care Physician: Jesus Peters MD [Primary Care Provider] - Test Results: Test results from this visit will be discussed in further detail at your follow- up appointment, if applicable. Please Follow Up With: Mason Link MD When: one week. call [phone] for appt. Proposed Discharge Date: 07/29/19
[2019-07-29 13:17] VITALS: BP 108/50; PULSE 71; RESP 18; TEMP 36.8; O2SAT 95
== END 2019-07-29 13:27 | disposition home or self-care (01) ==
LOC: SDC 16:48 → MS3 16:48
PROVIDERS: Anesthesiology; Admitting Provider Surgery; PCP Family Medicine; Referring Provider Surgery; Visit Provider Surgery
PROC: (CPT 19303; principal; 2019-07-28 11:15)
DX: C50.912 Malignant neoplasm of unspecified site of left female breast (principal); N65.1 Disproportion of reconstructed breast; F45.29 Other hypochondriacal disorders; N65.0 Deformity of reconstructed breast; Z40.01 Encounter for prophylactic removal of breast; E78.5 Hyperlipidemia, unspecified; J45.909 Unspecified asthma, uncomplicated; E03.9 Hypothyroidism, unspecified; M19.90 Unspecified osteoarthritis, unspecified site; I10 Essential (primary) hypertension; Z79.899 Other long term (current) drug therapy
CPT/HCPCS: 19303; 36415; 80048; 82962; 83735; 84134; 85027; 87635; 88307; 88341; 88342; 96372; 96374; 96376; 99218; 99251; G2023; J7120; G0378; G0379; G0463; J2405; U0003

== ENCOUNTER → 2019-08-26 08:23 | Outpatient (CLI) | payer MEDICARE, OTHER, SELFPAY ==
[2019-08-20 09:13] VITALS: BMI 23.8
[2019-08-26 10:37] LABS: Absolute Lymphocyte Count 2.02 X10^3/uL (0.83-4.51); Absolute Neutrophil Count 5.7 X10^3/uL (2.0-7.7); Basophil# 0.07 X10^3/uL; Basophil% 0.7 % (0-1); Eosinophil# 1.04 X10^3/uL; Eosinophils% 10.9 % (0-5); Hematocrit 43.4 % (37-47); Hemoglobin 13.5 g/dL (12.0-15.0); Lymphocyte # 2.02 X10^3/ul (4.0); Lymphocyte % 21.2 % (19-41); Mean Corp Hgb Conc 31.1 g/dL (32-36); Mean Corpuscular Hgb 30.1 pg (27.0-32.0); Mean Corpuscular Volume 96.9 fL (81-99); Mean Platelet Vol. 12.6 fl (6.2-12.0); Monocyte# 0.63 X10^3/uL; Monocyte% 6.6 % (0-10); NRBC Flagged by Analyzer 0 % (0-5); Neutrophil # 5.73 X10^3/uL (2.7-7.7); Platelet Count 246 K/mm3 (150-450); RBC Distribution Width CV 13.4 % (11.6-14.6); RBC Distribution Width SD 47.8 fl (35.1-43.9); Red Blood Count 4.48 M/mm3 (4.2-5.4); White Blood Count 9.6 K/mm3 (4.4-11.0)
[2019-08-26 11:05] LABS: ALB/GLOB Ratio 0.9 RATIO (0.9-2.4); AST(SGOT) 24 U/L (15-37); Alanine Aminotransfer ALT/SGPT 25 U/L (13-56); Albumin, Serum 3.6 g/dL (3.2-5.0); Alkaline Phosphatase 99 U/L (45-117); Anion Gap 6 (5-15); BUN 16 mg/dL (7-18); BUN/Creat Ratio 18.3 RATIO (10-20); Calcium,Total 9.1 mg/dL (8.5-10.1); Chloride 106 mmol/L (98-107); Cholesterol 271 mg/dL (200); Creatinine, Serum 0.87 mg/dL (0.55-1.02); EST Glomerular Filtration Rate 67 mL/min (>60); Est Glom Filt Rate - Afr Amer 82 mL/min (>60); Globulin 4.1 g/dL (2.2-4.2); Glucose 88 mg/dL (74-106); High Density Lipoprotein 52 mg/dL; Potassium 4.2 mmol/L (3.5-5.1); Protein, Total 7.7 g/dL (6.4-8.2); Sodium Level 139 mmol/L (136-145); Triglycerides 240 mg/dL; Very Low Density Lipoprotein 48 mg/dL (5-40)
== END ==
PROVIDERS: PCP Family Medicine; Referring Provider Family Medicine; Visit Provider Family Medicine
DX: E78.5 Hyperlipidemia, unspecified (principal)
CPT/HCPCS: 36415; 80053; 80061; 85025

== ENCOUNTER → 2019-11-29 08:04 | Outpatient (CLI) | payer MEDICARE, OTHER, SELFPAY ==
[2019-11-21 11:29] VITALS: BMI 24.6
[2019-11-29 08:57] LABS: AST(SGOT) 17 U/L (15-37); Alanine Aminotransfer ALT/SGPT 20 U/L (13-56); Albumin, Serum 3.4 g/dL (3.2-5.0); Alkaline Phosphatase 93 U/L (45-117); Cholesterol 231 mg/dL (200); Globulin 4.1 g/dL (2.2-4.2); High Density Lipoprotein 53 mg/dL; Protein, Total 7.5 g/dL (6.4-8.2); Triglycerides 128 mg/dL; Very Low Density Lipoprotein 26 mg/dL (5-40)
== END ==
PROVIDERS: PCP Family Medicine; Referring Provider Internal Medicine Cardiovascular Disease; Visit Provider Internal Medicine Cardiovascular Disease
DX: E78.00 Pure hypercholesterolemia, unspecified (principal)
CPT/HCPCS: 36415; 80061; 80076

== ENCOUNTER 2020-02-12 08:00 | Outpatient (RCR) | payer MEDICARE, OTHER, SELFPAY ==
[2019-08-20 09:13] VITALS: BMI 23.8
--- NOTE | 2019-09-03 16:00 | HP.PTEVAL_ITS ---
Patient's Visit Information DEEJAY WOLF is a 73 year old F referred to Physical Therapy by Dr. Jesus Peters MD with a diagnosis of Debility. Date of Evaluation: 09/03/19 Physical Therapist: Lorenzo Ernst, PT, ATC - Visit Plan Frequency: 2x /Week Duration: 4 Weeks Plan: B UE/LE strenghtneing, core stab ex's, scap stab ex's, UBE, and HEP - Subjective Pt reports she had a double mastectomy in April of 2019. Pt reports she had to have that surgery redone a month later. Pt reports since that date, she has become debilitated and thinks she needs PT in order to build her strength up now. Pt reports she is back to work and has to lift 35# items. Pt has stairs at work and notes no difficulty as long as she doesnt have to negotiate 20 at a time. Pt reports she has sleep difficulty secondary to pain. Pt reports she is here mostly here of UE strengthening and back strengthening. 0/10 pain at rest, 10/10 pain at worst (when she is working) - Pain body pain Pain Intensity (Out of 10): 0 Pain Intensity Range: 10 - Objective Neuro: B UE and LE sensation is WNL to light touch. ROM: B UE's and LE's are WFL. MMT: B UE's and LE's are grossly 4/5 throughout. Gait: pt is able to ambulate greater than 1000' without difficulty - Goals Goal 1:: Decrease back pain x 50% to aid with sleep Goal Time Frame: 4-6 Weeks Goal 2:: Increqase UE and LE strength by 1 grade to aid with IADL's Goal Time Frame: 4-6 Weeks Goal 3:: I with HEP Goal Time Frame: 4-6 Weeks - Rehabilitation Potential Physical Therapy Diagnosis: Pt has UE pain and UE/LE weakness secondary to debiliation Rehabilitation Potential: Good - Anticipated Interventions Patient/Client Instruction: Educate patient on: Condition, Plan of Care For the Purpose of:: To improve self management Therapeutic Exercise to Include: Strength training, Endurance training, Body mechanics, Postural training, Dynamic Lumbar Stabilization, Scapular Strength/Stabilization For the Purpose of:: To decrease pain, To increase ROM, To improve muscle performance and motor function Cryotherapy (ice pack, ice massage): Yes For the Purpose of:: To decrease pain Thank you for the opportunity to evaluate your patient. For Medicare and Medicare HMO plans, please review the plan of care and approve it. It will need to be FAXED BACK to us at [phone] for Medicare purposes. For Medicare only, by signing this I certify the plan of care. Please let me know if there are questions or concerns regarding this plan of care. Physician Signature: Date:
--- NOTE | 2019-10-06 14:29 | HP.PTREVAL_ITS ---
Dr. Jesus Peters MD, It has been my pleasure to treat DEEJAY WOLF over the last 9 visits for Debility. Please see the progress note below for an update on the physical therapy plan of care! Subjective: Pt. reports having about a 5/10, today in her low back. Pt. reports being 75% better overall. I feel like I am getting better. Objective/Function: ROM: lumbar spine: flexion min loss, extension min loss, SB min loss in both directions, SB min loss Bilat, rotation min loss bilat, Thoracic spine: min loss with flexion/extension and rotation. Mild increase in symptoms with rotation R. MMT: RLE- ankle 5/5 throughout; knee- ext 5-/5, flexion 4+/5; hip- flexion 4+/5, abd 4+/5, ext 4+/5. LLE- ankle 5/5 throughout; knee- ext 5-/5, flexion 4+/5; hip- flexion 4+/5, abd 4+/5, ext 4+/5. RUE- wrist and elbow 5/5 throughout; shoulder- flexion 4+/5, abd 4+/5, exte 5-/5, mid trap 4+/5, LUE- wrist and elbow 5/5 throughout; shoulder- flexion 4+/5, abd 4+/5, exte 5-/5, mid trap 4+/5. Plan Plan: Pt. is improving overall with strength and reduced pain. She still has some weakness and soreness in BLEs and UEs. COnt. to progress gym exercises with focus on core, BUE and BLE strenghtening. PRogress gym exercise to I program as able. Goals Goal 1:: Decrease back pain x 50% to aid with sleep Goal Time Frame: 4-6 Weeks Goal Progress: Progressing Goal 2:: Increqase UE and LE strength by 1 grade to aid with IADL's Goal Time Frame: 4-6 Weeks Goal Progress: Progressing Goal 3:: I with HEP Goal Time Frame: 4-6 Weeks Goal Progress: Progressing Anticipated Interventions Patient/Client Instruction: Educate patient on: Condition, Plan of Care For the Purpose of:: To improve self management Therapeutic Exercise to Include: Strength training, Endurance training, Body mechanics, Postural training, Dynamic Lumbar Stabilization, Scapular Strength/Stabilization For the Purpose of:: To decrease pain, To increase ROM, To improve muscle perf ormance and motor function Cryotherapy (ice pack, ice massage): Yes For the Purpose of:: To decrease pain Please do not hesitate to contact me at [phone] by phone or if you have questions or concerns regarding this new plan of care! Sincerely, EMIGDIO HarperT
--- NOTE | 2020-01-08 16:06 | HP.PTREVAL ---
Dr. Jesus Peters MD, It has been my pleasure to treat DEEJAY WOLF over the last 34 visits for Debility. Please see the progress note below for an update on the physical therapy plan of care! Subjective: My LB is sore today Objective/Function: Upper back pain is now 1/10 which is significantly improved. UE MMT: 4+/5 throughout. LE MMT: 4+/5 throughout. Pt is progressing well toward all Rx goals Plan Plan: Cont. to progress gym exercises with focus on core, BUE and BLE strenghtening. Goals Goal 1:: Decrease back pain x 50% to aid with sleep Goal Time Frame: 4-6 Weeks Goal Progress: Progressing Goal 2:: Increase UE and LE strength by 1 grade to aid with IADL's Goal Time Frame: 4-6 Weeks Goal Progress: Progressing Goal 3:: I with HEP Goal Time Frame: 4-6 Weeks Goal Progress: Goal Met Anticipated Interventions Patient/Client Instruction: Educate patient on: Condition, Plan of Care For the Purpose of:: To improve self management Therapeutic Exercise to Include: Strength training, Endurance training, Body mechanics, Postural training, Dynamic Lumbar Stabilization, Scapular Strength/Stabilization For the Purpose of:: To decrease pain, To increase ROM, To improve muscle performance and motor function Cryotherapy (ice pack, ice massage): Yes For the Purpose of:: To decrease pain Please do not hesitate to contact me at [phone] by phone or if you have questions or concerns regarding this new plan of care! Sincerely, Lorenzo Ernst, PT, ATC
--- NOTE | 2020-02-12 08:41 | HP.PTDCSUM ---
It has been my pleasure to treat DEEJAY WOLF referred by Dr. Jesus Peters MD, with the diagnosis of Debility for a total of 44 visit(s). Discharge Date: Please see the following information for a summary of their discharge status. Subjective: Pt reports she is ready for discharge. body pain Pain Intensity (Out of 10): 0 % Improvement: 96 Objective/Function: Pain is at 0/10 this date. B UE/LE strength is 5/5. Pt is I with HEP. Rx goals achieved Goal 1:: Decrease back pain x 50% to aid with sleep Goal Progress: Goal Met Goal 2:: Increase UE and LE strength by 1 grade to aid with IADL's Goal Progress: Goal Met Goal 3:: I with HEP Goal Progress: Goal Met Plan: Discharge If there are questions or concerns regarding this patient's physical therapy, please feel free to call me at [phone]. Thank you for the referral of this patient. Sincerely, Lorenzo Ernst, PT, ATC
== END 2020-02-12 09:05 | disposition home or self-care (01) ==
LOC: PT 08:00
PROVIDERS: PCP Family Medicine; Referring Provider Family Medicine; Visit Provider Family Medicine
DX: R53.81 Other malaise (principal)
CPT/HCPCS: 97110; 97161; 97164

== ENCOUNTER → 2020-02-19 09:09 | Outpatient (CLI) | payer MEDICARE, OTHER, SELFPAY ==
[2019-11-21 11:29] VITALS: BMI 24.6
[2020-02-19 10:11] LABS: Absolute Lymphocyte Count 1.83 X10^3/uL (0.83-4.51); Absolute Neutrophil Count 6.2 X10^3/uL (2.0-7.7); Basophil# 0.07 X10^3/uL; Basophil% 0.8 % (0-1); Eosinophil# 0.35 X10^3/uL; Eosinophils% 3.8 % (0-5); Hematocrit 43.5 % (37-47); Hemoglobin 13.6 g/dL (12.0-15.0); Lymphocyte # 1.83 X10^3/ul (4.0); Mean Corp Hgb Conc 31.3 g/dL (32-36); Mean Corpuscular Hgb 29.2 pg (27.0-32.0); Mean Corpuscular Volume 93.5 fL (81-99); Mean Platelet Vol. 12.3 fl (6.2-12.0); Monocyte# 0.62 X10^3/uL; Monocyte% 6.8 % (0-10); NRBC Flagged by Analyzer 0 % (0-5); Neutrophil # 6.21 X10^3/uL (2.7-7.7); Neutrophil % 68.1 % (47-70); Platelet Count 283 K/mm3 (150-450); RBC Distribution Width CV 13.5 % (11.6-14.6); Red Blood Count 4.65 M/mm3 (4.2-5.4); White Blood Count 9.1 K/mm3 (4.4-11.0)
[2020-02-19 10:32] LABS: Anion Gap 5 (5-15); BUN 29 mg/dL (7-18); BUN/Creat Ratio 26.6 RATIO (10-20); Calcium,Total 9.7 mg/dL (8.5-10.1); Chloride 105 mmol/L (98-107); Creatinine, Serum 1.09 mg/dL (0.55-1.02); EST Glomerular Filtration Rate 52 mL/min (>60); Est Glom Filt Rate - Afr Amer 63 mL/min (>60); Glucose 119 mg/dL (74-106); Potassium 4.1 mmol/L (3.5-5.1); Sodium Level 137 mmol/L (136-145); Thyroid Stim Hormone (TSH) 2.64 uIU/mL (0.358-3.74)
== END ==
PROVIDERS: PCP Family Medicine; Visit Provider Family Medicine
DX: R42 Dizziness and giddiness (principal)
CPT/HCPCS: 36415; 80048; 84443; 85025

== ENCOUNTER 2020-04-22 07:00 | Outpatient (RCR) | payer MEDICARE, SELFPAY ==
[2019-11-21 11:29] VITALS: BMI 24.6
[2020-04-22] MEDS: COVID-19 VACC, MRNA(PFIZER)/PF 30 MCG/0.3 ML SYRINGE IM (14:10)
[2020-05-13] MEDS: COVID-19 VACC, MRNA(PFIZER)/PF 30 MCG/0.3 ML SYRINGE IM (13:48)
== END 2020-07-27 23:59 ==
LOC: IMMUN 07:00
PROVIDERS: PCP Family Medicine; Referring Provider Family Medicine; Visit Provider Family Medicine
DX: Z23 Encounter for immunization (principal)
CPT/HCPCS: 0001A; 0002A; 91300

== ENCOUNTER 2020-07-26 20:10 | Emergency (ER) | payer MEDICARE, SELFPAY ==
[2019-11-21 11:29] VITALS: BMI 24.6
[2020-07-26 20:11] VITALS: BP 165/80; PULSE 87; RESP 15; TEMP 36.4; O2SAT 98; BMI 25.1
--- NOTE | 2020-07-26 20:19 | RAD_ITS ---
STUDY: X-RAY - LEFT SHOULDER REASON FOR EXAM: Female, 74 years old. injury TECHNIQUE: 2 view(s) of the shoulder. COMPARISON: None. FINDINGS: Normal glenohumeral articulation. Normal acromioclavicular joint. Normal acromion. Normal humeral head and visualized proximal humerus. The soft tissue structures are unremarkable. Normal visualized pulmonary apex. RAD/Shoulder min 2 Views IMPRESSION: Normal x-ray examination of the shoulder. Electronically Signed: Donato Rich MD at 20:57 EDT Tel , Service support ,
--- NOTE | 2020-07-26 20:19 | EDS_ITS ---
HPI History of Present Illness Chief Complaint: Upper Extremity Injury Informant: patient Narrative Narrative: 74-year-old female states the dog was trying to come through her door to get her cat. She chased it away she had lotion on her feet and went onto the deck and had been raining and she slipped and fell striking her left clavicle and shoulder against the railing. She states she did not fall down. She denies any other injuries. She notes she has pain down the whole arm and her fingers are now tingling. [facility] Medical History (Updated 07/26/20 @ 21:[address] Panchito Baird, ) Acquired absence of bilateral breasts and nipples Acquired absence of left breast and nipple Acquired absence of right breast and nipple Actinic keratosis Anemia Asthma Atelectasis Breast pain, left Cancer phobia Cataract Deformity of reconstructed breast Diastolic dysfunction Disproportion of reconstructed breast Ductal carcinoma in situ (DCIS) of left breast Dysesthesia Erythema of skin Essential (primary) hypertension Headache Hyperlipidemia Hypoglycemia Hypothyroidism Late effect of certain other external causes Left breast mass Leg fracture, left Neoplasm of skin of ear Neoplasm of skin of nose 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 Open wound of lateral abdominal wall Osteoarthritis Personal history of breast cancer Right wrist fracture Seroma of breast Strattice acellular dermal matrix graft UTI (urinary tract infection) Vitamin D deficiency Home Medications levothyroxine 50 mcg PO DAILY 03/26/14 [History Last Taken 07/28/19 05:30] evolocumab 420 mg/3.5 mL subcutaneous wearable injector 420 mg SC .1xmonth ml 08/14/18 [History Last Taken 07/21/19] cholecalciferol (vitamin D3) 25 mcg (1,000 unit) capsule 25 mcg PO DAILY 11/21/19 [History Last Taken Unknown] lisinopril 5 mg PO DAILY 07/26/20 [History Last Taken Unknown] Allergy/AdvReac Type Severity Reaction Status Date / Time clindamycin Allergy Intermediate HIVES, Verified 07/26/20 20:13 BLISTERS, ITCHING chlorhexidine Allergy Itching Verified 07/26/20 20:13 erythromycin base Allergy Hives Verified 07/26/20 20:13 gemfibrozil Allergy Other Verified 07/26/20 20:13 hydromorphone [From Dilaudid] Allergy Nausea/Vom/ Verified 07/26/20 20:13 Diarrhea Iodinated Contrast Media Allergy Rash Verified 07/26/20 20:13 meloxicam [From Mobic] Allergy Nausea Verified 07/26/20 20:13 morphine Allergy Nausea/Vom/ Verified 07/26/20 20:13 Diarrhea nitrofurantoin Allergy Vomiting Verified 07/26/20 20:13 [From Macrodantin] Penicillins Allergy Hives Verified 07/26/20 20:13 Sulfa (Sulfonamide Allergy PT UNSURE Verified 07/26/20 20:13 Antibiotics) OF REACTION fentanyl AdvReac Other Verified 07/26/20 20:13 latex AdvReac Rash Verified 07/26/20 20:13 prednisone AdvReac Other Verified 07/26/20 20:13 Doipgma-Mah-Afl Reductase AdvReac myalgias Verified 07/26/20 20:13 Inhibitor zinc AdvReac Upset Verified 07/26/20 20:13 Stomach BAND AID Allergy Rash Uncoded 07/26/20 20:13 shingle vaccine Allergy Vomiting Uncoded 07/26/20 20:13 Family History Mother Colon cancer Hypertension Diabetes Kidney disease Heart disease Father Heart disease Hyperlipidemia Kidney disease Myocardial infarction 62 Brother Myocardial infarction 68 Sister Myocardial infarction 40's Sister Myocardial infarction 40's Sister Myocardial infarction 40's Surgical History History of Achilles tendon repair History of cholecystectomy History of excision of lesion History of hysterectomy History of left breast biopsy History of mastectomy Status post left breast reconstruction Status post transverse rectus abdominis muscle (TRAM) flap breast reconstruction Social History (Updated 07/26/20 @ 20:[address] Panchito Baird DO) Smoking Status: Never smoker substance use type: does not use ROS ROS ED Constitutional Constitutional ED: Denies chills or weight loss Eyes Eyes: Denies change in vision or diplopia ENT ENT ED: Denies ear pain, rhinorrhea or sore throat Cardiovascular Cardiovascular: Denies chest pain, orthopnea, palpitations or racing heartbeat Respiratory/Chest Respiratory/Chest: Denies cough, dyspnea or orthopnea Gastrointestinal Gastrointestinal: Denies abdominal pain, diarrhea, nausea or vomiting Genitourinary Genitourinary ED: Denies dysuria, hematuria or urinary frequency Musculoskeletal Musculoskeletal: Reports other Details: See history of present illness ; Denies arthralgias or myalgias Integumentary Denies abscess or rash Neurologic Neurologic: Reports paresthesias; Denies headache(s) or weakness Psychiatric Psychiatric: Denies anxiety, depression, suicidal ideation or suicidal thoughts Endocrine Endocrinology: Denies polydipsia, polyphagia or polyuria Allergic/Immunologic Allergic/Immunologic ED: Denies mouth swelling, tongue swelling or urticaria EXAM Physical Exam Const Vital Signs: 07/26/20 20:11 Temperature 97.6 F L Temperature Source Temporal Pulse Rate 87 Respiratory Rate 15 Blood Pressure 165/80 H Blood Pressure Mean 108 Pulse Ox 98 Oxygen Delivery Method Room Air Positive well nourished and well developed General Appearance ED: well developed HEENT Reports normocephalic, head/scalp atraumatic and moist mucous membranes Eyes PERRL and EOMs intact bilaterally Neck no lymphadenopathy, supple and no JVD Resp normal respiratory effort and clear to auscultation bilaterally Cardio regular rate, regular rhythm and no murmurs GI normal to inspection, nondistended, normoactive bowel sounds and non-tender Palpation: soft Back/Spine no CVA tenderness and normal ROM Extremity Extremity Narrative: Patient has tenderness over the mid clavicle with some swelling on the left. She has tenderness at the left AC joint. General Extremety ED: Negative for edema General Extremity: Negative for edema Neuro oriented x3 and CN's II-XII intact bilaterally Sensorium / Orientation: alert Motor Exam: strength 5/5 throughout Psych mental status grossly normal Mood & Affect: Negative for depressed or tearful Skin no rashes or lesions noted and no wounds MDM MDM MDM Narrative Medical decision making narrative: My interpretation of the plain films of the left shoulder and left clavicle is no acute fracture. There is a slight prominence when I compare the AC joint on the left to the AC on the right. It is tender over that area so we will call this an AC sprain. Use a sling Tylenol Motrin for pain ice and follow-up with primary care return if worsening or con cerns Discharge Plan Triage Chief Complaint: Upper Extremity Injury ED Provider: Panchito Baird Dx/Rx/DC Orders Clinical Impression: Contusion of clavicle, Sprain of left acromioclavicular joint Instructions: ED Sprain AC Joint, ED Contusion, Upper Extremity Prescriptions: No Action Repatha Pushtronex 420 mg/3.5 mL wearable injector 420 mg SC .1xmonth RF: 0 cholecalciferol (vitamin D3) 25 mcg (1,000 unit) capsule 25 mcg PO DAILY RF: 0 levothyroxine 25 MCG tablet 50 mcg PO DAILY RF: 0 lisinopril 10 mg tablet 5 mg PO DAILY RF: 0 Primary Care Provider: Jesus Peters Referrals: Jesus Peters MD [Primary Care Provider] - 1-2 Weeks Disposition Disposition: Home, self care
--- NOTE | 2020-07-26 20:19 | RAD_ITS ---
STUDY: X-RAY - LEFT CLAVICLE REASON FOR EXAM: Female, 74 years old. injury TECHNIQUE: Radiography of the clavicle view(s) of the clavicle. COMPARISON: None. FINDINGS: Normal clavicle. Normal acromioclavicular articulation. Normal visualized sternoclavicular articulation. Normal visualized pulmonary apex. RAD/Clavicle IMPRESSION: Normal x-ray examination of the clavicle. No acute osseous injury. Electronically Signed: Donato Rich MD at 20:57 EDT Tel , Service support ,
[2020-07-26 21:26] VITALS: PULSE 96; RESP 16; O2SAT 99
== END 2020-07-26 21:27 | disposition home or self-care (01) ==
PROVIDERS: Emergency Provider Emergency Medicine; PCP Family Medicine
DX: S43.52XA Sprain of left acromioclavicular joint, initial encounter (principal); S40.012A Contusion of left shoulder, initial encounter; W01.0XXA Fall on same level from slipping, tripping and stumbling without subsequent striking against object, initial encounter; Y93.9 Activity, unspecified; Y92.9 Unspecified place or not applicable; I10 Essential (primary) hypertension; H26.9 Unspecified cataract; E03.9 Hypothyroidism, unspecified; E55.9 Vitamin D deficiency, unspecified; M19.90 Unspecified osteoarthritis, unspecified site; J45.909 Unspecified asthma, uncomplicated; Z86.2 Personal history of diseases of the blood and blood-forming organs and certain disorders involving the immune mechanism; Z86.000 Personal history of in-situ neoplasm of breast; Z87.440 Personal history of urinary (tract) infections; Z79.899 Other long term (current) drug therapy
CPT/HCPCS: 73000; 73030; 99283

== ENCOUNTER → 2020-09-23 16:43 | Outpatient (CLI) | payer MEDICARE, SELFPAY ==
[2020-09-23 18:07] LABS: Hematocrit 44.3 % (37-47); Hemoglobin 13.8 g/dL (12.0-15.0); Mean Corp Hgb Conc 31.2 g/dL (32-36); Mean Corpuscular Hgb 29.3 pg (27.0-32.0); Mean Corpuscular Volume 94.1 fL (81-99); Mean Platelet Vol. 12.1 fl (6.2-12.0); Platelet Count 295 K/mm3 (150-450); RBC Distribution Width CV 13.1 % (11.6-14.6); RBC Distribution Width SD 44.9 fl (35.1-43.9); Red Blood Count 4.71 M/mm3 (4.2-5.4); White Blood Count 10.7 K/mm3 (4.4-11.0)
[2020-09-23 18:25] LABS: Erythrocyte Sedimentation Rate 32 mm/hr (0-30)
[2020-09-23 18:36] LABS: Anion Gap 7 (5-15); BUN 21 mg/dL (7-18); BUN/Creat Ratio 20.6 RATIO (10-20); Calcium,Total 9.5 mg/dL (8.5-10.1); Chloride 104 mmol/L (98-107); Creatinine, Serum 1.02 mg/dL (0.55-1.02); EST Glomerular Filtration Rate 56 mL/min (>60); Est Glom Filt Rate - Afr Amer 68 mL/min (>60); Glucose 92 mg/dL (74-106); Potassium 4.1 mmol/L (3.5-5.1); Rheumatoid Factor < 10.0 IU/mL (<15); Sodium Level 138 mmol/L (136-145)
[2020-09-27 15:51] LABS: ANTINUCLEAR ANTIBODIES DIRECT Negative (Negative)
== END ==
PROVIDERS: PCP Family Medicine; Visit Provider Family Medicine
DX: M25.50 Pain in unspecified joint (principal)
CPT/HCPCS: 36415; 80048; 85027; 85652; 86038; 86140; 86431

== ENCOUNTER → 2020-11-09 13:32 | Outpatient (CLI) | payer MEDICARE, SELFPAY ==
[2020-11-09 15:17] LABS: Absolute Lymphocyte Count 1.78 X10^3/uL (0.83-4.51); Absolute Neutrophil Count 5.6 X10^3/uL (2.0-7.7); Basophil# 0.09 X10^3/uL; Basophil% 1.1 % (0-1); Eosinophil# 0.53 X10^3/uL; Eosinophils% 6.2 % (0-5); Hematocrit 40.4 % (37-47); Lymphocyte # 1.78 X10^3/ul (0.83-4.51); Lymphocyte % 20.8 % (19-41); Mean Corp Hgb Conc 32.2 g/dL (32-36); Mean Corpuscular Hgb 29.8 pg (27.0-32.0); Mean Corpuscular Volume 92.7 fL (81-99); Mean Platelet Vol. 12.2 fl (6.2-12.0); Monocyte# 0.56 X10^3/uL; Monocyte% 6.5 % (0-10); NRBC Flagged by Analyzer 0 % (0-5); Neutrophil # 5.55 X10^3/uL (2.7-7.7); Neutrophil % 64.8 % (47-70); Platelet Count 248 K/mm3 (150-450); RBC Distribution Width CV 12.9 % (11.6-14.6); Red Blood Count 4.36 M/mm3 (4.2-5.4); White Blood Count 8.6 K/mm3 (4.4-11.0)
[2020-11-09 16:09] LABS: ALB/GLOB Ratio 0.8 RATIO (0.9-2.4); AST(SGOT) 22 U/L (15-37); Alanine Aminotransfer ALT/SGPT 23 U/L (13-56); Albumin, Serum 3.3 g/dL (3.2-5.0); Alkaline Phosphatase 95 U/L (45-117); Anion Gap 2 (5-15); BUN 25 mg/dL (7-18); BUN/Creat Ratio 29.9 RATIO (10-20); Calcium,Total 9.4 mg/dL (8.5-10.1); Chloride 107 mmol/L (98-107); Creatinine, Serum 0.84 mg/dL (0.55-1.02); EST Glomerular Filtration Rate 71 mL/min (>60); Est Glom Filt Rate - Afr Amer 86 mL/min (>60); Glucose 85 mg/dL (74-106); Protein, Total 7.3 g/dL (6.4-8.2); Sodium Level 139 mmol/L (136-145)
[2020-11-09 16:57] LABS: Hepatitis B Surface Antibody Non-Reactive; Hepatitis B Surface Antigen Non-Reactive (Nonreactive); Hepatitis C Antibody Non-Reactive (Nonreactive)
[2020-11-12 08:39] LABS: CCP IgG Antibodies 7 units (0-19)
== END ==
PROVIDERS: PCP Family Medicine; Referring Provider Family Medicine; Visit Provider Internal Medicine Rheumatology
DX: M06.4 Inflammatory polyarthropathy (principal); M79.7 Fibromyalgia; Q66.70 Congenital pes cavus, unspecified foot; I10 Essential (primary) hypertension; E03.9 Hypothyroidism, unspecified; E78.5 Hyperlipidemia, unspecified; Z85.3 Personal history of malignant neoplasm of breast
CPT/HCPCS: 36415; 80053; 85025; 86200; 86706; 86803; 87340

== ENCOUNTER → 2020-11-26 06:02 | Outpatient (CLI) | payer MEDICARE, SELFPAY ==
[2020-11-26 07:51] LABS: AST(SGOT) 17 U/L (15-37); Alanine Aminotransfer ALT/SGPT 22 U/L (13-56); Albumin, Serum 3.5 g/dL (3.2-5.0); Alkaline Phosphatase 101 U/L (45-117); Bilirubin, Direct 0.08 mg/dL (0.00-0.30); Cholesterol 216 mg/dL (200); Globulin 4.3 g/dL (2.2-4.2); High Density Lipoprotein 44 mg/dL; Protein, Total 7.8 g/dL (6.4-8.2); Triglycerides 312 mg/dL; Very Low Density Lipoprotein 62 mg/dL (5-40)
== END ==
PROVIDERS: PCP Family Medicine; Referring Provider Nurse Practitioner Gerontology; Visit Provider Nurse Practitioner Gerontology
DX: E78.5 Hyperlipidemia, unspecified (principal)
CPT/HCPCS: 36415; 80061; 80076

== ENCOUNTER → 2020-12-21 13:46 | Outpatient (CLI) | payer MEDICARE, SELFPAY ==
[2020-12-21 15:43] LABS: Absolute Lymphocyte Count 2.33 X10^3/uL (0.83-4.51); Absolute Neutrophil Count 7.1 X10^3/uL (2.0-7.7); Basophil# 0.09 X10^3/uL; Basophil% 0.8 % (0-1); Eosinophil# 0.41 X10^3/uL; Eosinophils% 3.8 % (0-5); Hematocrit 43.7 % (37-47); Hemoglobin 13.4 g/dL (12.0-15.0); Lymphocyte # 2.33 X10^3/ul (0.83-4.51); Lymphocyte % 21.6 % (19-41); Mean Corp Hgb Conc 30.7 g/dL (32-36); Mean Corpuscular Hgb 28.9 pg (27.0-32.0); Mean Corpuscular Volume 94.4 fL (81-99); Mean Platelet Vol. 12.2 fl (6.2-12.0); Monocyte# 0.79 X10^3/uL; Monocyte% 7.3 % (0-10); NRBC Flagged by Analyzer 0 % (0-5); Neutrophil # 7.12 X10^3/uL (2.7-7.7); Neutrophil % 65.9 % (47-70); Platelet Count 313 K/mm3 (150-450); RBC Distribution Width CV 13.3 % (11.6-14.6); RBC Distribution Width SD 45.5 fl (35.1-43.9); Red Blood Count 4.63 M/mm3 (4.2-5.4); White Blood Count 10.8 K/mm3 (4.4-11.0)
[2020-12-21 15:51] LABS: ALB/GLOB Ratio 0.8 RATIO (0.9-2.4); AST(SGOT) 27 U/L (15-37); Alanine Aminotransfer ALT/SGPT 30 U/L (13-56); Albumin, Serum 3.5 g/dL (3.2-5.0); Alkaline Phosphatase 98 U/L (45-117); Anion Gap 3 (5-15); BUN 20 mg/dL (7-18); BUN/Creat Ratio 18.3 RATIO (10-20); Calcium,Total 9.6 mg/dL (8.5-10.1); Chloride 105 mmol/L (98-107); Creatinine, Serum 1.09 mg/dL (0.55-1.02); EST Glomerular Filtration Rate 52 mL/min (>60); Est Glom Filt Rate - Afr Amer 63 mL/min (>60); Globulin 4.3 g/dL (2.2-4.2); Glucose 89 mg/dL (74-106); Potassium 3.9 mmol/L (3.5-5.1); Protein, Total 7.8 g/dL (6.4-8.2); Sodium Level 137 mmol/L (136-145)
== END ==
PROVIDERS: PCP Family Medicine; Referring Provider Family Medicine; Visit Provider Internal Medicine Rheumatology
DX: M06.4 Inflammatory polyarthropathy (principal); M79.7 Fibromyalgia; Q66.70 Congenital pes cavus, unspecified foot; I10 Essential (primary) hypertension; E03.9 Hypothyroidism, unspecified; E78.5 Hyperlipidemia, unspecified; Z85.3 Personal history of malignant neoplasm of breast
CPT/HCPCS: 36415; 80053; 85025

== ENCOUNTER 2021-02-09 08:50 | Emergency (ER) | payer OTHER, MEDICARE, SELFPAY ==
[2021-02-09 08:51] VITALS: BP 167/92; PULSE 93; RESP 18; TEMP 36.8; O2SAT 98; BMI 25.7
--- NOTE | 2021-02-09 08:59 | CT_ITS ---
STUDY: CT BRAIN WITHOUT CONTRAST REASON FOR EXAM: Female, 75 years old. Closed head injury with loss of consciousness RADIATION DOSAGE (If Supplied By Facility): CTDIvol = ( 44.99 ) mGy, DLP = ( 779.24 ) mGycm TECHNIQUE: Transaxial CT imaging of the brain was performed without administration of intravenous contrast material. Individualized dose optimization techniques were used for this CT. COMPARISON: Comparison is made with prior study dated 04/10/2019. FINDINGS: Normal soft tissue structures. There is hyperostosis frontalis internus. There is mild cerebral atrophy with widening of the extra-axial spaces and ventricular dilatation. Normal white matter tracts of the cerebral hemispheres. Normal basal ganglia and thalami. Normal brainstem. Normal cerebellum. There is no intracranial hemorrhage. There are no findings of an acute ischemic infarction. Atherosclerotic calcification of the cavernous portions of the internal carotid arteries bilaterally. Normal visualized paranasal sinuses. CT/Brain/Head without Contrast IMPRESSION: Chronic involutional changes of the brain. Electronically Signed: Calderon Olivarez MD at 9:47 EST , Service support ,
--- NOTE | 2021-02-09 09:01 | EX.ED.GENINJ ---
HPI History of Present Illness Chief Complaint: Fall Detail of Chief Complaint: Closed head injury, facial laceration and left shoulder pain status post fa Informant: patient Onset/Context/Timing Onset: Hours Mechanism/Context: Blunt Injury, Fall and Work Related Location of pain/injuries: Left shoulder Quality of Pain: Dull and Aching Current Severity: Mild Maximum Severity: Severe Worsened by: Palpation and movement of left shoulder Relieved by: Rest, internal rotation and adduction Associated Symptoms Associated Symptoms: Positive for Loss of consciousness and Amnesia; Negative for Parasthesias, Weakness, Loss of function and Inability to ambulate Length of loss of consciousness: Brief per EMS Narrative Narrative: Patient is an elderly woman who presents after tripping at work. She hit her head. There was reported loss of conscious. She does not recall hitting her head. She does report headache. She is not on an anticoagulant. Her tetanus status unknown. She states her last tetanus shot was at the hospital. Nurse will look up most recent tetanus immunization. She denies double vision, blurred vision loss of vision. Denies neck pain. She states she has shoulder pain. She denies paresthesia, anesthesia or motor expressly of time that she became aware that she fell. She denies chest pain, shortness of breath or difficulty breathing. She denies nausea, vomiting or diarrhea. She denies pain in her right upper extremity or lower extremities. She is presently on prednisone for rheumatoid arthritis. She also has history of hypercholesterolemia and hyper thyroid Tetanus Immunization: Unknown Prior similar symptoms: No Recent Illness/Hospitalization: No [facility] Medical History (Updated 02/09/21 @ 10:[address] Teo Sinclair MD) Acquired absence of bilateral breasts and nipples Acquired absence of left breast and nipple Acquired absence of right breast and nipple Actinic keratosis Anemia Asthma Atelectasis Breast pain, left Cancer phobia Cataract Deformity of reconstructed breast Diastolic dysfunction Disproportion of reconstructed breast Ductal carcinoma in situ (DCIS) of left breast Dysesthesia Erythema of skin Essential (primary) hypertension Headache Hyperlipidemia Hypoglycemia Hypothyroidism Late effect of certain other external causes Left breast mass Leg fracture, left Neoplasm of skin of ear Neoplasm of skin of nose 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 Open wound of lateral abdominal wall Osteoarthritis Personal history of breast cancer Right wrist fracture Seroma of breast Strattice acellular dermal matrix graft UTI (urinary tract infection) Vitamin D deficiency Home Medications levothyroxine 50 mcg PO DAILY 03/26/14 [History Last Taken 07/28/19 05:30] evolocumab 420 mg/3.5 mL subcutaneous wearable injector 420 mg SC .1xmonth ml 08/14/18 [History Last Taken 07/21/19] prednisone 10 mg tablet 10 mg PO DAILY PRN 11/19/20 [History Last Taken Unknown] lisinopril 10 mg tablet 10 mg PO DAILY #90 tab 01/31/21 [Rx Last Taken Unknown] ondansetron 4 mg PO Q8H PRN PRN #10 tab 02/09/21 [Rx Last Taken Unknown] oxycodone-acetaminophen 1 tab PO Q6H PRN PRN 5 Days #20 tablet 02/09/21 [Rx Last Taken Unknown] Allergy/AdvReac Type Severity Reaction Status Date / Time clindamycin Allergy Intermediate HIVES, Verified 02/09/21 08:54 BLISTERS, ITCHING chlorhexidine Allergy Itching Verified 02/09/21 08:54 erythromycin base Allergy Hives Verified 02/09/21 08:54 gemfibrozil Allergy Other Verified 02/09/21 08:54 hydromorphone [From Dilaudid] Allergy Nausea/Vom/ Verified 02/09/21 08:54 Diarrhea Iodinated Contrast Media Allergy Rash Verified 02/09/21 08:54 meloxicam [From Mobic] Allergy Nausea Verified 02/09/21 08:54 morphine Allergy Nausea/Vom/ Verified 02/09/21 08:54 Diarrhea nitrofurantoin Allergy Vomiting Verified 02/09/21 08:54 [From Macrodantin] Penicillins Allergy Hives Verified 02/09/21 08:54 Sulfa (Sulfonamide Allergy PT UNSURE Verified 02/09/21 08:54 Antibiotics) OF REACTION fentanyl AdvReac Other Verified 02/09/21 08:54 latex AdvReac Rash Verified 02/09/21 08:54 prednisone AdvReac Other Verified 02/09/21 08:54 Nlemjsx-VLB-FpM Reductase AdvReac myalgias Verified 02/09/21 08:54 Inhibitor [Meqxwzh-Oft-Wfg Reductase Inhibitor] zinc AdvReac Upset Verified 02/09/21 08:54 Stomach BAND AID Allergy Rash Uncoded 02/09/21 08:54 shingle vaccine Allergy Vomiting Uncoded 02/09/21 08:54 Family History Mother Colon cancer Hypertension Diabetes Kidney disease Heart disease Father Heart disease Hyperlipidemia Kidney disease Myocardial infarction 62 Brother Myocardial infarction 68 Sister Myocardial infarction 40's Sister Myocardial infarction 40's Sister Myocardial infarction 40's Surgical History History of Achilles tendon repair History of cholecystectomy History of excision of lesion History of hysterectomy History of left breast biopsy History of mastectomy Status post left breast reconstruction Status post transverse rectus abdominis muscle (TRAM) flap breast reconstruction Social History (Updated 02/09/21 @ 09:[address] Teo Sinclair MD) household members: none Smoking Status: Never smoker substance use type: does not use ROS ROS ED Constitutional Constitutional ED: Denies chills, fever(s), subjective or sweats Eyes Eyes: Denies blurry vision or change in vision ENT ENT ED: Denies ear pain, rhinorrhea or sore throat Cardiovascular Cardiovascular: Denies chest pain, palpitations or racing heartbeat Respiratory/Chest Respiratory/Chest: Denies cough, dyspnea or dyspnea on exertion Gastrointestinal Gastrointestinal: Denies abdominal pain, diarrhea, nausea or vomiting Genitourinary Genitourinary ED: Denies dysuria, hematuria or urinary frequency Musculoskeletal Musculoskeletal: Reports other Details: Left shoulder pain ; Denies arthralgias, back pain, myalgias or neck pain Integumentary Reports other Details: Laceration superior and lateral aspect of the left brow ; Denies rash Neurologic Neurologic: Reports headache(s); Denies paresthesias or weakness Endocrine Endocrinology: Denies polyuria Hematologic/Lymphatic Hematologic/Lymphatic: Denies easy bruising EXAM Physical Exam Const Vital Signs: 02/09/21 08:51 02/09/21 08:55 Temperature 98.2 F Temperature Source Oral Pulse Rate 93 Respiratory Rate 18 Respiratory Effort Normal Non-Labored Respiratory Depth Normal Respiratory Pattern Normal Blood Pressure 167/92 H Blood Pressure Mean 117 Pulse Ox 98 Oxygen Delivery Method Room Air Room Air Positive well nourished and well developed General Appearance ED: well developed and NAD HEENT Reports TM's clear HEENT Narrative: There is no palpable depression. Patient does have a curvilinear laceration lateral periorbital region on the left. There is no pain ovation over the zygomatic arch or the temporal region. There is no clinical findings of basal skull fracture. trauma and tenderness Nose: septum abnormal Tympanic Membrane ED: Yes TM's clear Eyes PERRL and EOMs intact bilaterally General Eye ED: Yes other Other Details: There is no subconjunctival hemorrhage noted. Neck full ROM General: Negative for tenderness Chest Wall palpation of chest normal Resp normal respiratory effort and clear to auscultation bilaterally Cardio regular rhythm, S1 normal heart sound, S2 normal heart sound and no murmurs Rate: regular rate GI normal to inspection, nondistended, normoactive bowel sounds, non-tender and non-distended GI Narrative: There is no pain ovation of the pelvis. Auscultation: normoactive bowel sounds Palpation: soft Back/Spine normal to inspection and no thoracic nor lumbar tenderness Extremity Negative for normal to inspection or full ROM Extremity Narrative: Axillary, median, radial and ulnar function intact on the left side. She has pain ovation of the proximal humerus. There is no pain the patient over the AC joint or clavicle. General Extremety ED: Yes tenderness; Negative for deformity or edema General Extremity: Negative for deformity or edema Neuro oriented x3, CN's II-XII intact bilaterally and moves all extremities Susan Coma Scale: document GCS findings Spontaneous Obeys Commands Oriented 15 Sensorium / Orientation: alert Plantar Reflex: Downgoing: bilateral Psych mental status grossly normal and thought process normal Skin no rashes or lesions noted Skin Narrative: Facial laceration that is 2.5 cm in length. Wounds: wounds noted PROC Procedures Other Procedures Procedure(s): 2.5 cm curvilinear irregular shaped facial laceration near the lateral left brow. Patient was prepped draped sterile manner. The area was Nestabs 1% lidocaine local infiltration. The wound was irrigated with 200 cc of normal saline. Because of patient having allergic reaction to Ethilon sutures and reaction to Vicryl fast-absorbing gut was used. A total of 10 simple interrupted sutures were placed using 5-0 fast-absorbing gut., Repeat. Patient tolerated procedure well. She was discharged home with appropriate home-going structures. She has seen Dr. Deandre Schmidt in the past for prior fractures and requested follow-up with him. MDM MDM MDM Narrative Medical decision making narrative: With history of head trauma loss of conscious amnesia headache and over the age of 65 per the [place] CT head rule imaging is required. CT of the head was ordered. X-ray of the shoulder was obtained to determine extent of injury and rule out fracture. Patient's laceration will require repair please see procedure note. Radiography Diagnostic Testing: Clinical Impression(s) from Imaging Studies Brain CT 02/09/21 08:59 IMPRESSION: Chronic involutional changes of the brain. Electronically Signed: Calderon Olivarez MD at 9:47 EST , Service support , Shoulder X-Ray 02/09/21 09:35 IMPRESSION: Nondisplaced comminuted fracture of the proximal surgical neck of the left humerus with extension to the greater tuberosity. Electronically Signed: Calderon Olivarez MD at 9:48 EST , Service support , Three-view x-ray of the shoulder was interpreted by me at 0946. Patient has a nondisplaced nonangulated fracture of the surgical neck. This is nondisplaced. CT was reviewed by me and there is no obvious abnormality noted. Awaiting formal read. Discharge Plan Triage Chief Complaint: Fall ED Provider: Teo Sinclair Dx/Rx/DC Orders Clinical Impression: Closed head injury with brief loss of consciousness, Facial laceration, Fracture of proximal end of left humerus Instructions: ED Head Injury (Adult), ED Laceration: All Closures, ED Scar Tips to Minimize, ED Fracture, Shoulder Prescriptions: New oxycodone-acetaminophen [oxycodone-acetaminophen] 1 TABLET tablet 1 tab PO Q6H PRN PRN (Reason: pain) 5 Days Qty: 20 RF: 0 ondansetron [ondansetron] 4 MG tablet 4 mg PO Q8H PRN PRN (Reason: Nausea) Qty: 10 RF: 0 No Action Repatha Pushtronex 420 mg/3.5 mL wearable injector 420 mg SC .1xmonth RF: 0 prednisone 10 mg tablet 10 mg PO DAILY PRN (Reason: RA) RF: 0 lisinopril 10 mg tablet 10 mg PO DAILY Qty: 90 RF: 3 levothyroxine 25 MCG tablet 50 mcg PO DAILY RF: 0 Primary Care Provider: Jesus Peters Referrals: Jesus Peters MD [Primary Care Provider] - Deandre Schmidt MD [STAFF PHYSICIAN] - 5-7 Days Activity Restrictions/Additional Instructions: 1. Apply ice to left shoulder 8 times a day 2. Call Dr. Deandre Schmidt's office for follow-up appointment in 5 to 7 days 3. Apply bacitracin ointment to laceration 3 times a day 4. The sutures are absorbable and should dissolve within 3 to 5 days. Disposition Disposition: Home, Self Care
--- NOTE | 2021-02-09 09:35 | RAD_ITS ---
STUDY: X-RAY - LEFT SHOULDER REASON FOR EXAM: Female, 75 years old. Injury/Pain TECHNIQUE: 2 view(s) of the shoulder. COMPARISON: Comparison is made with prior study dated 07/26/2020. FINDINGS: There is mild degenerative arthrosis of the glenohumeral articulation. Normal acromioclavicular joint. Normal acromion. There is a nondisplaced condylar fracture of the surgical neck of the proximal humerus with extension to the greater tuberosity. The soft tissue structures are unremarkable. Normal visualized pulmonary apex. RAD/Shoulder min 2 Views IMPRESSION: Nondisplaced comminuted fracture of the proximal surgical neck of the left humerus with extension to the greater tuberosity. Electronically Signed: Calderon Olivarez MD at 9:48 EST , Service support ,
[2021-02-09] MEDS: Ondansetron 4 MG/2 ML Vial IV (10:00)
[2021-02-09] MEDS: Diphth,Pertuss(Acell),Tet Vac 0.5 ML Vial IM (10:00)
[2021-02-09] MEDS: Morphine 4 MG/ML Syringe IV (10:01)
[2021-02-09] MEDS: Lidocaine 1% (20 ml mdv) 20 ML Vial INFILT (10:01)
[2021-02-09 10:25] VITALS: PULSE 89; RESP 17; O2SAT 98
== END 2021-02-09 11:03 | disposition home or self-care (01) ==
PROVIDERS: Emergency Provider Emergency Medicine; PCP Family Medicine
DX: S01.112A Laceration without foreign body of left eyelid and periocular area, initial encounter (principal); S06.9X9A Unspecified intracranial injury with loss of consciousness of unspecified duration, initial encounter; S42.215A Unspecified nondisplaced fracture of surgical neck of left humerus, initial encounter for closed fracture; W01.0XXA Fall on same level from slipping, tripping and stumbling without subsequent striking against object, initial encounter; Y93.9 Activity, unspecified; Y92.9 Unspecified place or not applicable; I10 Essential (primary) hypertension; H26.9 Unspecified cataract; E03.9 Hypothyroidism, unspecified; E55.9 Vitamin D deficiency, unspecified; E78.00 Pure hypercholesterolemia, unspecified; E78.5 Hyperlipidemia, unspecified; M06.9 Rheumatoid arthritis, unspecified; J45.909 Unspecified asthma, uncomplicated; Z85.3 Personal history of malignant neoplasm of breast; Z87.440 Personal history of urinary (tract) infections; Z90.13 Acquired absence of bilateral breasts and nipples; Z79.899 Other long term (current) drug therapy
CPT/HCPCS: 12011; 70450; 73030; 90715; 96374; 96375; 99285; J2405

== ENCOUNTER → 2021-02-15 11:38 | Outpatient (CLI) | payer OTHER, MEDICARE, SELFPAY ==
--- NOTE | 2021-02-15 11:45 | CT_ITS ---
EXAM: CT LEFT UPPER EXTREMITY WITHOUT INTRAVENOUS CONTRAST, ELBOW CLINICAL INDICATION: LFT ELBOW CONTUSION TECHNIQUE: Helically acquired images were obtained of the left elbow without intravenous contrast. 2-D reformats were performed by the technologist. This CT exam was performed using one or more of the following dose reduction techniques: automated exposure control, adjustment of the mA and/or kV according to patient size, and/or use of iterative reconstruction technique. This report was created using [employer] report generation technology. COMPARISON: None. FINDINGS: BONES/JOINTS: Longitudinal fracture of the radial head articular surface is best seen on image 31 of series 601 without significant displacement. Small joint effusion. No sclerotic or destructive changes. SOFT TISSUES: Mild soft tissue swelling. No radiopaque foreign body. CT/Extremity Upper without Contra IMPRESSION: Radial head fracture with articular surface involvement. Electronically Signed: Gallo Llanos MD ([place]) at 12:26 EST , Service support ,
== END ==
PROVIDERS: PCP Family Medicine; Visit Provider Orthopaedic Surgery
DX: S50.02XA Contusion of left elbow, initial encounter (principal); S52.122A Displaced fracture of head of left radius, initial encounter for closed fracture
CPT/HCPCS: 73200

== ENCOUNTER 2021-04-29 08:55 | Outpatient (CLI) | payer OTHER, SELFPAY ==
[2021-04-29 10:45] LABS: ALB/GLOB Ratio 0.9 RATIO (0.9-2.4); AST(SGOT) 22 U/L (15-37); Alanine Aminotransfer ALT/SGPT 23 U/L (13-56); Albumin, Serum 3.5 g/dL (3.2-5.0); Alkaline Phosphatase 105 U/L (45-117); Anion Gap 5 (5-15); BUN 19 mg/dL (7-18); BUN/Creat Ratio 19.1 RATIO (10-20); Calcium,Total 9.5 mg/dL (8.5-10.1); Chloride 107 mmol/L (98-107); Cholesterol 234 mg/dL (200); EST Glomerular Filtration Rate 58 mL/min (>60); Est Glom Filt Rate - Afr Amer 70 mL/min (>60); Free T3 2.4 pg/mL (2.18-3.98); Globulin 3.9 g/dL (2.2-4.2); Glucose 94 mg/dL (74-106); High Density Lipoprotein 47 mg/dL; Potassium 4.3 mmol/L (3.5-5.1); Protein, Total 7.4 g/dL (6.4-8.2); Sodium Level 137 mmol/L (136-145); T4 Free Direct 1.16 ng/dL (0.76-1.46); Thyroid Stim Hormone (TSH) 1.42 uIU/mL (0.358-3.74); Triglycerides 180 mg/dL; Very Low Density Lipoprotein 36 mg/dL (5-40)
== END 2021-04-29 23:59 | disposition home or self-care (01) ==
PROVIDERS: PCP Family Medicine; Referring Provider Family Medicine; Visit Provider Family Medicine
DX: E03.9 Hypothyroidism, unspecified (principal); E78.5 Hyperlipidemia, unspecified
CPT/HCPCS: 36415; 80053; 80061; 84439; 84443; 84481

== ENCOUNTER 2021-05-10 08:15 | Outpatient (CLI) | payer OTHER, SELFPAY ==
--- NOTE | 2021-05-10 08:30 | BD_ITS ---
STUDY: DUAL ENERGY X-RAY ABSORPTIOMETRY / DXA REASON FOR EXAM: Female, 75 years old. [id number]. Patient is postmenopausal. TECHNIQUE: Bone Mineral Density (BMD) measurements of lumbar spine and bilateral hips were obtained. COMPARISON: Comparison is made with prior study dated 04/02/2018. FINDINGS: Lumbar Spine (L1-L4): g/cm2 (0.880) / T-score (-1.5) / Z-score (0.9) Findings are suggestive of osteopenia with a low fracture risk. Left Femur Total: g/cm2 (0.792) / T-score (-1.2) / Z-score (0.6) Left Femoral Neck: g/cm2 (0.795) / T-score (-0.5) / Z-score (1.6) Right Femur Total: g/cm2 (0.791) / T-score (-1.2) / Z-score (0.6) Right Femoral Neck: g/cm2 (0.741) / T-score (-1.0) / Z-score (1.1) The T-Scores on the most recent prior examination were: Lumbar Spine (L1-L4): There has been worsening of bone density since the previous examination. Left Femur Total: which represents a worsening of 4.6%. Right Femur Total: which represents a worsening of 7.3%. BD/Dexa Bone Density Study IMPRESSION: The patient is considered osteopenic as outlined below according to World Addi Organization (WHO) criteria with a low fracture risk. There has been worsening of bone density since the previous examination. Reference Information: The T-score is the number of standard deviations above or below the standard which is normal for young adults at their peak bone mineral density. The World Health Organization (WHO) interprets the T-scores as follows: Above -1 Normal bone density Between -1 and -2.5 Osteopenia Equal to / or below -2.5 Osteoporosis As a practical clinical guideline, osteopenia may be graded as follows: Mild -1 through -1.5 Moderate -1.6 through -2.0 Severe -2.1 through -2.4 The Z-score is the number of standard deviations above or below age-matched controls. A Z-score of less than -1.5 would be considered abnormal. References: 1. NIH Osteoporosis and Related Bone Diseases www osteo.org 2. International Society for Clinical Densitometry www iscd.org 3. National Osteoporosis Foundation www nof.org Electronically Signed: Calderon Olivarez MD at 7:55 EDT ,
== END 2021-05-10 23:59 | disposition home or self-care (01) ==
PROVIDERS: PCP Family Medicine; Visit Provider Family Medicine
DX: N95.9 Unspecified menopausal and perimenopausal disorder (principal)
CPT/HCPCS: 77080

== ENCOUNTER 2021-05-20 08:00 | Outpatient (RCR) | payer OTHER, SELFPAY ==
--- NOTE | 2021-03-16 15:07 | HP.PTEVAL_ITS ---
Patient's Visit Information DEEJAY WOLF is a 75 year old F referred to Physical Therapy by Dr. Chris Vazquez DO with a diagnosis of L humerus and radial fracture. Date of Evaluation: 03/16/21 Physical Therapist: Lorenzo Ernst, PT, ATC - Visit Plan Frequency: 2-3x /Week Duration: 6 Weeks - Subjective DOI: 02/09/21. Pt reports she fell over a box at work and injured several body parts. Pt reports she needed 10 stitches for her head, fractured her L radius, a nd fractured her L humerus. Pt notes she had to wait a week to see . Pt reports after an xray and cat scan, it was noted she did not need surgery at that time. Pt reports she had to wear a gutter splint for 2 weeks, and now she is here to PT. Pt notes she is R hand dominant. Pt denies tingling or numbness in L UE at this time. Pt reports she is excited to get here and begin strengthening at this time. Pt notes she has had pain in L Lateral arm that is really pain. 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 Pt reports she is to continue with ROM ex's until 8 weeks out where all the fractures are healed.Sig sleep difficulty at this time secondary to pain. 0/10 pain at rest, 10/10 at worst (whenb pt coughs and sneezes. - Pain L shoulder and elbow Pain Intensity (Out of 10): 0 Pain Intensity Range: 10 - Objective Neuro: B UE sensation is WNL to light touch. B biceps reflex= 2/3. ROM: R shoulder flex= 160, abd= 150, ER= 70, IR WNL; L shoulder flex= 100, abd= 80, ER= 0, IR severely limited. MMT: R shoulder 5/5 throughout. L shoulder is 3/5 through available ROM. Palpation: L shoulder is tender along the supraspinatus and lateral humerus - Balance/Special Test Scores Quick DASH Score: 86.3625 - Goals Goal 1:: Decrease L shoulder pain and elbow pain x 50% to aid with sleep Goal Time Frame: 4-6 Weeks Goal 2:: Increase L shoulder flex and abd ROM x 30 degrees to aid with overhead activity Goal Time Frame: 4-6 Weeks Goal 3:: Increase L shoulder strength x 1 grade to aid with IADL's Goal Time Frame: 4-6 Weeks Goal 4:: I with HEP Goal Time Frame: 4-6 Weeks - Rehabilitation Potential Physical Therapy Diagnosis: Pt has L shoulder pain, weakness, and limited ROM secondary to L humeral and radial fracture Rehabilitation Potential: Good - Anticipated Interventions Patient/Client Instruction: Educate patient on: Condition, Plan of Care For the Purpose of:: To improve self management Therapeutic Exercise to Include: Strength training, Endurance training, Flexibilty training, Passive ROM, Active ROM, Scapular Strength/Stabilization For the Purpose of:: To decrease pain, To increase ROM, To improve muscle performance and motor function Cryotherapy (ice pack, ice massage): Yes For the Purpose of:: To decrease pain Thank you for the opportunity to evaluate your patient. For Medicare and Medicare HMO plans, please review the plan of care and approve it. It will need to be FAXED BACK to us at [phone] for Medicare purposes. For Medicare only, by signing this I certify the plan of care. Please let me know if there are questions or concerns regarding this plan of care. Physician Signature: Date:
--- NOTE | 2021-04-22 08:28 | HP.PTREVAL ---
Dr. Chris Vazquez, DO, It has been my pleasure to treat DEEJAY WOLF over the last 17 visits for L humerus and radial fracture. Please see the progress note below for an update on the physical therapy plan of care! Subjective: I am still getting better Objective/Function: L shoulder pain 1/10, elbow pain 0/10. Pt is still limited with sleep secondary to pain. L shoulder flex= 120, abd= 115 degrees. L shoulder MMT:4+/5 throughout available ROM. Pt is progressing well towward Rx goals Plan Plan: Cont to progress ex's as amy Balance/Gait/Functional tests - Balance/Special Test Scores Quick DASH Score: 52.2725 Goals Goal 1:: Decrease L shoulder pain and elbow pain x 50% to aid with sleep Goal Time Frame: 4-6 Weeks Goal Progress: Progressing Goal 2:: Increase L shoulder flex and abd ROM x 30 degrees to aid with overhead activity Goal Time Frame: 4-6 Weeks Goal 3:: Increase L shoulder strength x 1 grade to aid with IADL's Goal Time Frame: 4-6 Weeks Goal 4:: I with HEP Goal Time Frame: 4-6 Weeks Anticipated Interventions Patient/Client Instruction: Educate patient on: Condition, Plan of Care For the Purpose of:: To improve self management Therapeutic Exercise to Include: Strength training, Endurance training, Flexibilty training, Passive ROM, Active ROM, Scapular Strength/Stabilization For the Purpose of:: To decrease pain, To increase ROM, To improve muscle performance and motor function Cryotherapy (ice pack, ice massage): Yes For the Purpose of:: To decrease pain Please do not hesitate to contact me at [phone] by phone or if you have questions or concerns regarding this new plan of care! Sincerely, Lorenzo Ernst, PT, ATC
--- NOTE | 2021-05-20 08:26 | HP.PTDCSUM_ITS ---
It has been my pleasure to treat DEEJAY WOLF referred by Dr. Chris Vazquez DO, with the diagnosis of L humerus and radial fracture for a total of 29 visit(s). Discharge Date: Please see the following information for a summary of their discharge status. Subjective: No pain today. Pt reports she is ready for discharge L shoulder and elbow Pain Intensity (Out of 10): 0 % Improvement: 100 Objective/Function: L shoulder pain 0/10. L shoulder ROM: flex= 145, abd= 130 degrees. L shoulder MMT: 5/5 throughout. Pt is I with gym routine Goal 1:: Decrease L shoulder pain and elbow pain x 50% to aid with sleep Goal Progress: Goal Met Goal 2:: Increase L shoulder flex and abd ROM x 30 degrees to aid with overhead activity Goal Progress: Goal Met Goal 3:: Increase L shoulder strength x 1 grade to aid with IADL's Goal Progress: Goal Met Goal 4:: I with HEP Goal Progress: Goal Met Plan: Discharge to [facility] If there are questions or concerns regarding this patient's physical therapy, please feel free to call me at [phone]. Thank you for the referral of this patient. Sincerely, Lorenzo Ernst, PT, ATC Balance/Gait/Functional tests - Balance/Special Test Scores Quick DASH Score: 11.3625
== END 2021-05-20 09:50 | disposition home or self-care (01) ==
LOC: PT 08:00
PROVIDERS: PCP Family Medicine; Referring Provider Orthopaedic Surgery; Visit Provider Orthopaedic Surgery
DX: S52.122D Displaced fracture of head of left radius, subsequent encounter for closed fracture with routine healing (principal); S42.225D 2-part nondisplaced fracture of surgical neck of left humerus, subsequent encounter for fracture with routine healing; X58.XXXD Exposure to other specified factors, subsequent encounter
CPT/HCPCS: 97110; 97140; 97161; 97164

== ENCOUNTER → 2021-12-21 | Outpatient (CLI) | payer OTHER, MEDICARE, SELFPAY ==
--- NOTE | 2021-12-21 15:35 | MRI_ITS ---
EXAM: MR LEFT UPPER EXTREMITY WITHOUT INTRAVENOUS CONTRAST, SHOULDER CLINICAL INDICATION: SHOULDER TRAUMA, LABRAL TEAR SUSPECTED TECHNIQUE: Multiplanar and multisequence MR images of the left shoulder without intravenous contrast. This report was created using [employer] report cloud.IQ technology. COMPARISON: None. FINDINGS: TENDONS: SUPRASPINATUS: Unremarkable. Intact. INFRASPINATUS: Unremarkable. Intact. SUBSCAPULARIS: Unremarkable. Intact. TERES MINOR: Unremarkable. Intact. BICEPS BRACHII, LONG HEAD: Lateral biceps tendon is normal in position. The extra-articular biceps tendon is in the bicipital groove. LIGAMENTS: GLENOHUMERAL: Unremarkable. Intact. CORACOACROMIAL: Type I acromion with flat undersurface. No subacromial enthesophyte or os acromiale. No coracoacromial ligament thickening. MUSCLES: Muscles are normal. No rotator cuff muscle atrophy. FLUID: No significant fluid in the subacromial/subdeltoid bursa. No joint effusion. CARTILAGE: Unremarkable. Articular cartilage intact. GLENOID LABRUM: Unremarkable. Intact, limited evaluation on non-arthrographic exam. BONES/JOINTS: Humeral head osteonecrosis. Subchondral cysts at the inferior glenoid. Mild to moderate degenerative changes of the acromioclavicular joints with no significant mass effect on the underlying soft tissues. No rotator cuff tear. No fracture. No abnormal bone marrow signal. OTHER SOFT TISSUES: Unremarkable. No rotator interval edema. MRI/Upper Ext Joint Only(Routine) IMPRESSION: 1. Humeral head osteonecrosis. 2. No rotator cuff or labral tearing. 3. Small subchondral cysts at the inferior glenoid. Electronically Signed: José Antonio Cespedes MD at 4:18 EDT ,
== END | disposition home or self-care (01) ==
LOC: MRI 15:29
PROVIDERS: PCP Family Medicine; Visit Provider Orthopaedic Surgery
DX: S42.225D 2-part nondisplaced fracture of surgical neck of left humerus, subsequent encounter for fracture with routine healing (principal)
CPT/HCPCS: 73221

== ENCOUNTER → 2022-01-26 | Outpatient (CLI) | payer OTHER, SELFPAY ==
--- NOTE | 2022-01-26 14:38 | CT_ITS ---
EXAM: CT LEFT UPPER EXTREMITY WITHOUT INTRAVENOUS CONTRAST, SHOULDER CLINICAL INDICATION: SHOULDER FX TECHNIQUE: Helically acquired images were obtained of the left shoulder without intravenous contrast. 2-D reformats were performed by the technologist. CTDIvol = ( 10.10 ) mGy, DLP = ( 218.47 ) mGycm This CT exam was performed using one or more of the following dose reduction techniques: automated exposure control, adjustment of the mA and/or kV according to patient size, and/or use of iterative reconstruction technique. This report was created using [employer] report [email or web address] technology. COMPARISON: December 2021 exam and February 14, 2021 exam FINDINGS: BONES/JOINTS: Moderate to severe osteoarthritic changes of the glenohumeral joint with subchondral cyst on the glenoid side. No acute or healing fracture demonstrated. Cervical spondylosis at multiple levels. Diffuse osteopenia. No critical central canal stenosis. SOFT TISSUES: No soft tissue abnormalities. No soft tissue swelling or gas. No radiopaque foreign body. VASCULATURE: Multivessel calcific coronary atherosclerosis. Atherosclerotic calcifications of the aortic valve. LUNG APICES: Scarring or subsegmental atelectasis at the posterior aspect of the left lower lobe. HEART: Cardiomegaly suspected although incompletely imaged. OTHER FINDINGS: No malalignment. CT/Extremity Upper without Contra IMPRESSION: 1. No acute or healing fracture or malalignment. 2. Moderate to severe osteoarthritic changes of the glenohumeral joint Electronically Signed: José Antonio Cespedes MD at 19:18 EST ,
== END | disposition home or self-care (01) ==
LOC: CT 14:36
PROVIDERS: PCP Family Medicine; Referring Provider Student in an Organized Health Care Education/Training Program; Visit Provider Student in an Organized Health Care Education/Training Program
DX: S42.225D 2-part nondisplaced fracture of surgical neck of left humerus, subsequent encounter for fracture with routine healing (principal); I25.10 Atherosclerotic heart disease of native coronary artery without angina pectoris; M85.832 Other specified disorders of bone density and structure, left forearm; M47.812 Spondylosis without myelopathy or radiculopathy, cervical region
CPT/HCPCS: 73200

== ENCOUNTER → 2022-03-01 | Outpatient (CLI) | payer MEDICARE, SELFPAY ==
[2022-03-01 12:00] LABS: Anion Gap 7 (5-15); BUN 23 mg/dL (7-18); BUN/Creat Ratio 23.8 RATIO (10-20); Calcium,Total 9.6 mg/dL (8.5-10.1); Chloride 104 mmol/L (98-107); Cholesterol 268 mg/dL (200); Creatinine, Serum 0.97 mg/dL (0.55-1.02); EST Glomerular Filtration Rate 60 mL/min (>60); Est Glom Filt Rate - Afr Amer 72 mL/min (>60); Glucose 86 mg/dL (74-106); High Density Lipoprotein 55 mg/dL; Sodium Level 138 mmol/L (136-145); Triglycerides 161 mg/dL; Very Low Density Lipoprotein 32 mg/dL (5-40)
== END | disposition home or self-care (01) ==
LOC: LAB 09:53
PROVIDERS: PCP Family Medicine; Referring Provider Family Medicine; Visit Provider Family Medicine
DX: Z00.00 Encounter for general adult medical examination without abnormal findings (principal); E03.9 Hypothyroidism, unspecified
CPT/HCPCS: 36415; 80048; 80061; 84443

== ENCOUNTER → 2022-05-12 | Outpatient (CLI) | payer MEDICARE, SELFPAY ==
[2022-05-12 09:13] LABS: Cholesterol 255 mg/dL (200); High Density Lipoprotein 56 mg/dL; Triglycerides 142 mg/dL; Very Low Density Lipoprotein 28 mg/dL (5-40)
== END | disposition home or self-care (01) ==
PROVIDERS: PCP Family Medicine; Referring Provider Family Medicine; Visit Provider Family Medicine
DX: E78.5 Hyperlipidemia, unspecified (principal)
CPT/HCPCS: 36415; 80061

== ENCOUNTER → 2022-08-24 | Outpatient (CLI) | payer MEDICARE, SELFPAY ==
[2022-08-24 18:35] LABS: Free T3 2.1 pg/mL (2.18-3.98); T4 Free Direct 1.17 ng/dL (0.76-1.46); Thyroid Stim Hormone (TSH) 2.28 uIU/mL (0.358-3.74)
== END | disposition home or self-care (01) ==
LOC: MFPLAB 14:51
PROVIDERS: PCP Family Medicine; Visit Provider Family Medicine
DX: E03.9 Hypothyroidism, unspecified (principal)
CPT/HCPCS: 36415; 84439; 84443; 84481

== ENCOUNTER → 2022-09-15 | Outpatient (CLI) | payer MEDICARE, SELFPAY ==
--- NOTE | 2022-09-15 16:05 | RAD_ITS ---
INDICATION: PAIN EXAMINATION/TECHNIQUE: X-RAY - LEFT XR Knee Complete 4 Views or More 4 VIEWS COMPARISON: No relevant prior comparison study available FINDINGS: SOFT TISSUES: No soft tissue swelling or gas. No radiopaque foreign body. BONES/JOINTS: There is partial visualization of an intramedullary kristy within the proximal and mid tibia. No acute fracture or subluxation.. There is lateral patellar tilt. There are faint calcifications projecting over the medial lateral compartment consistent with chondrocalcinosis. No sclerotic or destructive changes observed. RAD/Knee 4 or More Views IMPRESSION: Chondrocalcinosis. Lateral patellar tilt. Electronically Signed: Lola Anaya MD at 8:19 EDT ,
== END | disposition home or self-care (01) ==
LOC: MTRAD 16:03
PROVIDERS: PCP Family Medicine; Referring Provider Family Medicine; Visit Provider Family Medicine
DX: M25.562 Pain in left knee (principal)
CPT/HCPCS: 73564

== ENCOUNTER → 2022-11-08 | Outpatient (CLI) | payer MEDICARE, SELFPAY ==
[2022-11-08 12:56] LABS: Free T3 2.1 pg/mL (2.18-3.98); T4 Free Direct 1.17 ng/dL (0.76-1.46); Thyroid Stim Hormone (TSH) 1.75 uIU/mL (0.358-3.74)
== END | disposition home or self-care (01) ==
LOC: MFPLAB 10:15
PROVIDERS: PCP Family Medicine; Visit Provider Family Medicine
DX: E03.9 Hypothyroidism, unspecified (principal)
CPT/HCPCS: 36415; 84439; 84443; 84481

== ENCOUNTER 2022-11-27 09:00 | Outpatient (RCR) | payer MEDICARE, SELFPAY ==
--- NOTE | 2022-09-15 11:36 | HP.PTEVAL_ITS ---
Patient's Visit Information Visit Information Visit Information: DEEJAY WOLF is a 76 year old F referred to Physical Therapy by Dr. Kj Perez MD with a diagnosis of Left Reverse Total Shoulder by Dr. Perez 08/31/22. Date of Evaluation: 09/15/22 Physical Therapist: Tasha Wilkins DPT Visit Plan Frequency: 2-3x /Week Duration: 4 Weeks Plan: ROM- PROM and AAROM- advance as tolerated per script HEP Given IE: Table Walk Away- elbow flexion/extn, scapular retraction, acid cutter Subjective Subjective: She has been dealing with this left shoulder for a year and a half- she finally had a Left Reverse Total Shoulder by Dr. Perez 08/31/22. She went back to MD day before yesterday and he is happy with her progress- he took x- rays and everything looks great-She was told by the MD that she did not need to use the sling so she took it off and she started having a lot more pain. Worst:10/10 Agg: taking the sling off. Eases: putting the sling back on Best: 0/10 Pain is located in the posterior shoulder- describes it as gnawing tooth ache pain. Radiates down to the elbow when it hangs down- it can radiate to the first finger. Sleep: disturbed- back in bed last night. Work: retired. Right hand dominate. No neck pain, blurred vision, dizziness or GARRETT. PMHx/Meds: repatha, synthroid, celebrex. Objective Objective: Posture: FH, RS- guarding of the left UE- can correct with verbal cues Observation: steri strips intact- mild bruising- sling without pillow Palpation: tender along upper trap, medial border of the scapula, AC joint, bicipital groove Sensation: WNL to gross touch ROM: Elbow/Wrist: WNL, Shoulder PROM: Flexion: 100 degrees, Abd: 60 degrees, IR/ER: neutral, AAROM: Flexion: 90 degrees, Abd: 45 degrees. Strength: Shoulder: Isometric: Extn/Flex/Abd; 4/5, Elbow: 4+/5, Loan Secretary: Right: 60 Left: 40, Scap: fair minus Balance/Special Test Scores Quick DASH Score: 75.0000 Goals Goal 1:: Patient will be I with HEP and progression Goal Time Frame: 4-6 Weeks Goal 2:: Patient will maintain proper posture t/o tx session to demo increased scap s/s. Goal Time Frame: 4-6 Weeks Goal 3:: Patient will demo full AROM of the left shoulder Goal Time Frame: 4-6 Weeks Goal 4:: Patient will report 80% improvement Goal Time Frame: 4-6 Weeks Rehabilitation Potential Physical Therapy Diagnosis: Patient presents with hypomobility s/p Left Reverse Total Shoulder by Dr. Perez 08/31/22- she has decreased scapular strength/stabilization, ROM, and muscular endurance leading to poor posture and increased pain with ADL's. Rehabilitation Potential: Fair Anticipated Interventions Patient/Client Instruction: Educate patient on: Benefits of Fitness Program Therapeutic Exercise to Include: Strength training, Endurance training, Coordination, Agility training, Body mechanics, Postural training, Flexibilty training, Neuromotor development, Passive ROM, Active ROM, Dynamic Lumbar Stabilization and Scapular Strength/Stabilization For the Purpose of:: To improve muscle performance and motor function TENS: Yes Cryotherapy (ice pack, ice massage): Yes Thermo therapy (hot pack): Yes Ultrasound (thermal/non thermal): No Text: Thank you for the opportunity to evaluate your patient. For Medicare and Medicare HMO plans, please review the plan of care and approve it. It will need to be FAXED BACK to us at [phone] for Medicare purposes. For Medicare only, by signing this I certify the plan of care. Please let me know if there are questions or concerns regarding this plan of care. Physician Sig nature: Date:
--- NOTE | 2022-09-27 14:07 | HP.PTEVAL ---
Patient's Visit Information Visit Information Visit Information: DEEJAY WOLF is a 76 year old F referred to Physical Therapy by Dr. Kj Perez MD with a diagnosis of Left Reverse Total Shoulder by Dr. Perez 08/31/22. Date of Evaluation: 09/15/22 Physical Therapist: Lorenzo Ernts, PT, ATC Visit Plan Frequency: 2-3x /Week Duration: 4 Weeks Plan: ROM- PROM and AAROM- advance as tolerated per script Subjective Subjective: She has been dealing with this left shoulder for a year and a half- she finally had a Left Reverse Total Shoulder by Dr. Perez 08/31/22. She went back to MD day before yesterday and he is happy with her progress- he took x-rays and everything looks great-She was told by the MD that she did not need to use the sling so she took it off and she started having a lot more pain. Worst:10/10 Agg: taking the sling off. Eases: putting the sling back on Best: 0/10 Pain is located in the posterior shoulder- describes it as gnawing tooth ache pain. Radiates down to the elbow when it hangs down- it can radiate to the first finger. Sleep: disturbed- back in bed last night. Work: retired. Right hand dominate. No neck pain, blurred vision, dizziness or GARRETT. PMHx/Meds: repatha, synthroid, celebrex. Objective Objective: Posture: FH, RS- guarding of the left UE- can correct with verbal cues Observation: steri strips intact- mild bruising- sling without pillow Palpation: tender along upper trap, medial border of the scapula, AC joint, bicipital groove Sensation: WNL to gross touch ROM: Elbow/Wrist: WNL, Shoulder PROM: Flexion: 100 degrees, Abd: 60 degrees, IR/ER: neutral, AAROM: Flexion: 90 degrees, Abd: 45 degrees. Strength: Shoulder: Isometric: Extn/Flex/Abd; 4/5, Elbow: 4+/5, Die Casting Machine Maintainer: Right: 60 Left: 40, Scap: fair minus Balance/Special Test Scores Lower Extremity Functional Score: 31 Quick DASH Score: 75.0000 Goals Goal 1:: Patient will be I with HEP and progression Goal Time Frame: 4-6 Weeks Goal 2:: Patient will maintain proper posture t/o tx session to demo increased scap s/s. Goal Time Frame: 4-6 Weeks Goal 3:: Patient will demo full AROM of the left shoulder Goal Time Frame: 4-6 Weeks Goal 4:: Patient will report 80% improvement Goal Time Frame: 4-6 Weeks Rehabilitation Potential Physical Therapy Diagnosis: Patient presents with hypomobility s/p Left Reverse Total Shoulder by Dr. Perez 08/31/22- she has decreased scapular strength/stabilization, ROM, and muscular endurance leading to poor posture and increased pain with ADL's. Rehabilitation Potential: Fair Anticipated Interventions Patient/Client Instruction: Educate patient on: Benefits of Fitness Program Therapeutic Exercise to Include: Strength training, Endurance training, Coordination, Agility training, Body mechanics, Postural training, Flexibilty training, Neuromotor development, Passive ROM, Active ROM, Dynamic Lumbar Stabilization and Scapular Strength/Stabilization For the Purpose of:: To improve muscle performance and motor function TENS: Yes Cryotherapy (ice pack, ice massage): Yes Thermo therapy (hot pack): Yes Ultrasound (thermal/non thermal): No Text: Thank you for the opportunity to evaluate your patient. For Medicare and Medicare HMO plans, please review the plan of care and approve it. It will need to be FAXED BACK to us at [phone] for Medicare purposes. For Medicare only, by signing this I certify the plan of care. Please let me know if there are questions or concerns regarding this plan of care. Physician Signature: Date:
--- NOTE | 2022-10-17 14:03 | HP.PTREVAL ---
Re-Evaluation Intro: Dr. Kj Perez MD, It has been my pleasure to treat DEEJAY WOLF over the last 13 visits for Left Reverse Total Shoulder by Dr. Perez 08/31/22. Please see the progress note below for an update on the physical therapy plan of care! Subjective Subjective: L shoulder pain ranges from 0-2/10 Objective Objective/Function: L shoulder pain ranges from 0-2/10 L shoulder ROM: flex= 50, abd= 60, ER= 20, IR= severely limited L shoulder MMT: 2-/5 throughout Pt is progressing as expected at this time Plan Plan Plan: ROM- PROM and AAROM- advance as tolerated per script Balance/Gait/Functional tests Balance/Special Test Scores Lower Extremity Functional Score: 31 Quick DASH Score: 61.3625 Goals Goals Goal 1:: Patient will be I with HEP and progression Goal Time Frame: 4-6 Weeks Goal Progress: Progressing Goal 2:: Patient will maintain proper posture t/o tx session to demo increased scap s/s. Goal Time Frame: 4-6 Weeks Goal Progress: Progressing Goal 3:: Patient will demo full AROM of the left shoulder Goal Time Frame: 4-6 Weeks Goal Progress: Progressing Goal 4:: Patient will report 80% improvement Goal Time Frame: 4-6 Weeks Goal Progress: Progressing Anticipated Interventions Anticipated Interventions Patient/Client Instruction: Educate patient on: Benefits of Fitness Program Therapeutic Exercise to Include: Strength training, Endurance training, Coordination, Agility training, Body mechanics, Postural training, Flexibilty training, Neuromotor development, Passive ROM, Active ROM, Dynamic Lumbar Stabilization and Scapular Strength/Stabilization For the Purpose of:: To improve muscle performance and motor function TENS: Yes Cryotherapy (ice pack, ice massage): Yes Thermo therapy (hot pack): Yes Ultrasound (thermal/non thermal): No Re-Evaluation Ending Re-evaluation ending: Please do not hesitate to contact me at [phone] by phone or if you have questions or concerns regarding this new plan of care! Sincerely, Lorenzo Ernst, PT, ATC
--- NOTE | 2022-10-17 14:44 | HP.PTDCS(2) ---
Discharge Summary D/C Summary: It has been my pleasure to treat DEEJAY WOLF referred by Dr. Kj Perez MD, with the diagnosis of L knee pain for a total of 8 visit(s). Discharge Date: Please see the following information for a summary of their discharge status. Subjective Subjective: L knee pain ranges from 0-3/10 Overall Improvement % Improvement: 70 Objective Objective/Function/Assessment: L knee ext strength is 39 #F L knee pain ranges from 0-3/10 L knee ROM:0-127 degrees Goals Patient Goals: Improve Mobility, Improve Function and Decrease Pain Goal 1:: Increase L knee ROM x 20 degrees to aid with squatting type activity Goal 2:: Decrease L knee pain x 50% to aid with IADL's Goal 3:: Increase L knee ext strength x 5-10 #F to aid with stair negotiation Goal 4:: I with HEP Plan Plan: Discharge to HEP D/C Information d/c sentence: If there are questions or concerns regarding this patient's physical therapy, please feel free to call me at [phone]. Thank you for the referral of this patient. Sincerely, Lorenzo Ernst, PT, ATC Balance/Special Test Scores Improvement % Improvement: 70
--- NOTE | 2022-11-01 09:12 | HP.PTDCS(2) ---
Discharge Summary D/C Summary: It has been my pleasure to treat DEEJAY WOLF referred by Dr. Kj Perez MD, with the diagnosis of L knee pain for a total of 8 visit(s). Discharge Date: Please see the following information for a summary of their discharge status. Subjective Subjective: L knee pain ranges from 0-3/10 Overall Improvement % Improvement: 70 Objective Objective/Function/Assessment: L knee ext strength is 39 #F L knee pain ranges from 0-3/10 L knee ROM:0-127 degrees Goals Patient Goals: Improve Mobility, Improve Function and Decrease Pain Goal 1:: Increase L knee ROM x 20 degrees to aid with squatting type activity Goal 2:: Decrease L knee pain x 50% to aid with IADL's Goal 3:: Increase L knee ext strength x 5-10 #F to aid with stair negotiation Goal 4:: I with HEP Plan Plan: Discharge to HEP D/C Information d/c sentence: If there are questions or concerns regarding this patient's physical therapy, please feel free to call me at [phone]. Thank you for the referral of this patient. Sincerely, Lorenzo Ernst, PT, ATC Balance/Special Test Scores Improvement % Improvement: 70
--- NOTE | 2022-11-27 09:27 | HP.PTDCSUM ---
Discharge Summary D/C summary: It has been my pleasure to treat DEEJAY WOLF referred by Dr. Kj Perez MD, with the diagnosis of Left Reverse Total Shoulder by Dr. Perez 08/31/22 for a total of 24 visit(s). Discharge Date: Please see the following information for a summary of their discharge status. Subjective Subjective: Patient reports that she is doing well with her shoulder- she is happy with her progress. She feels that she is 95% better. She can curl her hair and perform her ADL's. She is not painful. Overall Improvement % Improvement: 95 Objective Objective/Function: Posture: good throughout- no guarding of the left UE Gait: good arm swing and trunk rotation Palpation: not tender to touch ROM: Flexion: 140 degrees, Abd: 120 degrees, IR: belt line, ER: 40 degrees, Hand behind head Strength: at Neutral: Extension: 21.3 Flexion: 17.8 Abd: 8.6 Add: 15.1 IR: 10.5 ER: 6.6 Scap: fair Goals Goal 1:: Patient will be I with HEP and progression Goal Progress: Goal Met Goal 2:: Patient will maintain proper posture t/o tx session to demo increased scap s/s. Goal Progress: Goal Met Goal 3:: Patient will demo full AROM of the left shoulder Goal Progress: Progressing Goal 4:: Patient will report 80% improvement Goal Progress: Goal Met Plan Plan: 11/27/22: Discharge to I HEP- encouraged patient to call if questions or needs D/C Information d/c sentence: If there are questions or concerns regarding this patient's physical therapy, please feel free to call me at [phone]. Thank you for the referral of this patient. Sincerely, Tasha Wilkins, DPT Balance/Gait/Functional tests Balance/Special Test Scores Lower Extremity Functional Score: 47 Quick DASH Score: 11.3625 Improvement % Improvement: 95
== END 2022-11-27 10:09 | disposition home or self-care (01) ==
LOC: PT 09:00
PROVIDERS: PCP Family Medicine; Referring Provider Orthopaedic Surgery Hand Surgery; Visit Provider Orthopaedic Surgery Hand Surgery
DX: M87.21 Osteonecrosis due to previous trauma, shoulder (principal); Z47.1 Aftercare following joint replacement surgery; M25.562 Pain in left knee
CPT/HCPCS: 97110; 97140; 97161; 97162; 97164

== ENCOUNTER 2022-12-13 08:00 | Outpatient (RCR) | payer MEDICARE, SELFPAY ==
--- NOTE | 2022-12-01 09:00 | HP.PTEVAL_ITS ---
Patient's Visit Information Visit Information Visit Information: DEEJAY WOLF is a 76 year old F referred to Physical Therapy by CHINTAN ULLOA with a diagnosis of Right Knee Bursitis. Date of Evaluation: 12/01/22 Physical Therapist: Tasha Wilkins DPT Visit Plan Frequency: 2x /Week Duration: 4 Weeks Plan: Ultrasound, Posterior Chain Strengthening, LE and Core Strength/Stabilization HEP Given IE: Quad set, SLR, Hip Abduction Subjective Subjective: Patient reports that she has pain in the right knee- she has pain in the medial knee below the joint line- she went to see Dr. Ulloa. She had 4 x- rays and was told she has bursitis and sent her to PT. He wants her to have ultrasound and exercise. She is taking Voltaren instead of Celebrex. Worst: 11/28 Agg: when she wears her flip flops. Eases: putting on shoes. Best: 02/28. Describes the pain as sharp and shooting. Radiates down to the ankle sometimes. She reports no N/T. Its more of an aggravation. Sleep: disturbed- but feels better last night. She has orthotics but she doesn't wear them because she feels that it makes her pain worse. PMHx/Meds: no change Objective Objective: Posture: Forward head, rounded shoulders and increased kyphosis- can correct but does not maintain Gait: mildly antalgic- decreased heel strike on the right LE HR/TR: able with UE A SLS: 2 seconds- increased pelvic drop ROM: WFL in all planes Palpation: tender along medial joint line and along medial tibia Flex: HS: moderate, Gastroc: moderate Strength: Core: fair minus, Knee Flexion: 18 Knee Extension: 39 Hip Extn: 4-/5 Hip Flexion: 4/5 Hip Abd: 4-/5 Ankle: 5/5 Sit to Stand: no UE A but reports discomfort Special Tests R Knee Gama - Meniscus: Negative R Knee Valgus - MCL: Positive R Knee Varus - LCL: Positive Balance/Special Test Scores Lower Extremity Functional Score: 43 Goals Goal 1:: Patient will report participation in home exercise program activities a minimum of 5 days per week, as adjunct to skilled physical therapy intervention in preparation for independent home management upon discharge. Goal Time Frame: 4-6 Weeks Goal 2:: Patient will report an increase of 9 points on the LEFS to show minimal clinical significant difference on patients functional outcome measure. Goal Time Frame: 4-6 Weeks Goal 3:: Patient will descend 4+ stairs reciprocally with a single handrail to demonstrate increased LE functional strength and ease community mobility. Goal Time Frame: 4-6 Weeks Goal 4:: Patient will stand on even surface with eyes open without loss of balance for 15 seconds to demonstrate improved balance and increase safety with ADL?s. Goal Time Frame: 4-6 Weeks Rehabilitation Potential Physical Therapy Diagnosis: Patient presents with hypomobility- she has decreased LE and core strength/stabilization, proprioception, flex and muscular endurance leading to increased pain with ADL's Rehabilitation Potential: Good Anticipated Interventions Patient/Client Instruction: Educate patient on: Benefits of Fitness Program Therapeutic Exercise to Include: Strength training, Endurance training, Balance training, Coordination, Agility training, Body mechanics, Postural training, Flexibilty training, Gait and locomotor training, Neuromotor development, Passive ROM, Active ROM and Dynamic Lumbar Stabilization For the Purpose of:: To improve muscle performance and motor function TENS: Yes Cryotherapy (ice pack, ice massage): Yes Thermo therapy (hot pack): Yes Ultrasound (thermal/non thermal): Yes Text: Thank you for the opportunity to evaluate your patient. For Medicare and Medicare HMO plans, please review the plan of care and approve it. It will need to be FAXED BACK to us at [phone] for Medicare purposes. For Medicare only, by signing this I certify the plan of care. Please let me know if there are questions or concerns regarding this plan of care. Physician Signature: Date:
--- NOTE | 2022-12-13 08:28 | HP.PTREVAL ---
Re-Evaluation Intro: CHINTAN ULLOA, It has been my pleasure to treat DEEJAY WOLF over the last 5 visits for Right Knee Bursitis. Please see the progress note below for an update on the physical therapy plan of care! Subjective Subjective: The knee is better- she is able to walk- and is really happy with progress Objective Objective/Function: Posture: Forward head, rounded shoulders and increased kyphosis- can correct but does not maintain Gait: no deviation noted HR/TR: able with UE A SLS: 30 sec ROM: WFL in all planes Palpation: tender along medial joint line and along medial tibia Flex: HS: moderate, Gastroc: moderate Strength: Core: fair minus, Knee Flexion: 25 Knee Extension: 48 Hip Extn: 4/5 Hip Flexion: 4+/5 Hip Abd: 4/5 Ankle: 5/5 Sit to Stand: no UE A but reports discomfort Plan Plan Plan: 10/13/22: Hold- will follow up as needed- if she does not follow up within 4 weeks PT will assume she is doing great and will d/c from PT Ultrasound, Posterior Chain Strengthening, LE and Core Strength/Stabilization Balance/Gait/Functional tests Balance/Special Test Scores Lower Extremity Functional Score: 61 Goals Goals Goal 1:: Patient will report participation in home exercise program activities a minimum of 5 days per week, as adjunct to skilled physical therapy intervention in preparation for independent home management upon discharge. Goal Time Frame: 4-6 Weeks Goal 2:: Patient will report an increase of 9 points on the LEFS to show minimal clinical significant difference on patients functional outcome measure. Goal Time Frame: 4-6 Weeks Goal 3:: Patient will descend 4+ stairs reciprocally with a single handrail to demonstrate increased LE functional strength and ease community mobility. Goal Time Frame: 4-6 Weeks Goal 4:: Patient will stand on even surface with eyes open without loss of balance for 15 seconds to demonstrate improved balance and increase safety with ADL?s. Goal Time Frame: 4-6 Weeks Anticipated Interventions Anticipated Interventions Patient/Client Instruction: Educate patient on: Benefits of Fitness Program Therapeutic Exercise to Include: Strength training, Endurance training, Balance training, Coordination, Agility training, Body mechanics, Postural training, Flexibilty training, Gait and locomotor training, Neuromotor development, Passive ROM, Active ROM and Dynamic Lumbar Stabilization For the Purpose of:: To improve muscle performance and motor function TENS: Yes Cryotherapy (ice pack, ice massage): Yes Thermo therapy (hot pack): Yes Ultrasound (thermal/non thermal): Yes Re-Evaluation Ending Re-evaluation ending: Please do not hesitate to contact me at [phone] by phone or if you have questions or concerns regarding this new plan of care! Sincerely, EMIGDIO VelásquezT
== END 2022-12-13 19:00 | disposition home or self-care (01) ==
LOC: PT 08:00
PROVIDERS: PCP Family Medicine
DX: M70.51 Other bursitis of knee, right knee (principal)
CPT/HCPCS: 97035; 97110; 97140; 97162; 97164; 97530

== ENCOUNTER → 2023-01-05 | Outpatient (CLI) | payer MEDICARE, SELFPAY ==
--- NOTE | 2023-01-05 07:54 | VDLE_ITS ---
Reason For Study: Right leg pain RIGHT LEFT GSV is normal. CFV is compressible, spontaneous, phasic, CFV is compressible, spontaneous, phasic, competent, and demonstrates normal competent and demonstrates normal augmentation. augmentation. FV is compressible, spontaneous, phasic, competent and demonstrates normal augmentation. POP V is compressible, spontaneous, phasic, competent and demonstrates normal augmentation. T/P Trunk is compressible. PTV is compressible. RT PerV is compressible. Procedure This is a venous duplex using B-mode, color flow and spectral Doppler. Exam performed in department. A preliminary report was called and/or faxed to Dr. Peters. VL/Venous Duplex US, Unilateral Interpretation Summary There is no evidence of right lower extremity deep vein thrombosis. Right great saphenous vein appears patent and compressible segmentally. Normal flow patterns left common f emoral vein Ordering Physician: Jesus Peters Referring Physician: Jesus Peters Performed By: Rhiannon Ramos RVT
== END | disposition home or self-care (01) ==
PROVIDERS: PCP Family Medicine; Referring Provider Family Medicine; Visit Provider Family Medicine
DX: M79.604 Pain in right leg (principal)
CPT/HCPCS: 93971

== ENCOUNTER → 2023-02-21 | Outpatient (CLI) | payer MEDICARE, SELFPAY ==
[2023-02-21 12:06] LABS: Anion Gap 6 (5-15); BUN 22 mg/dL (7-18); BUN/Creat Ratio 25.2 RATIO (10-20); Calcium,Total 9.7 mg/dL (8.5-10.1); Chloride 107 mmol/L (98-107); Cholesterol 262 mg/dL (200); Creatinine, Serum 0.87 mg/dL (0.55-1.02); EST Glomerular Filtration Rate 67 mL/min (>60); Est Glom Filt Rate - Afr Amer 81 mL/min (>60); Free T3 2.4 pg/mL (2.18-3.98); Glucose 88 mg/dL (74-106); High Density Lipoprotein 47 mg/dL; Potassium 4.1 mmol/L (3.5-5.1); Sodium Level 140 mmol/L (136-145); T4 Free Direct 1.31 ng/dL (0.76-1.46); Thyroid Stim Hormone (TSH) 1.61 uIU/mL (0.358-3.74); Triglycerides 280 mg/dL; Very Low Density Lipoprotein 56 mg/dL (5-40)
== END | disposition home or self-care (01) ==
LOC: MFPLAB 08:23
PROVIDERS: PCP Family Medicine; Visit Provider Family Medicine
DX: E03.9 Hypothyroidism, unspecified (principal); I10 Essential (primary) hypertension
CPT/HCPCS: 36415; 80048; 80061; 84439; 84443; 84481

== ENCOUNTER → 2023-05-21 | Outpatient (CLI) | payer MEDICARE, SELFPAY ==
[2023-05-21 10:21] LABS: Vitamin D,25 Hydroxy 42.6 ng/mL
[2023-05-21 10:33] LABS: Anion Gap 5 (5-15); BUN 21 mg/dL (7-18); BUN/Creat Ratio 24.1 RATIO (10-20); Calcium,Total 9.3 mg/dL (8.5-10.1); Chloride 105 mmol/L (98-107); Cholesterol 250 mg/dL (200); Creatinine, Serum 0.87 mg/dL (0.55-1.02); EST Glomerular Filtration Rate 67 mL/min (>60); Est Glom Filt Rate - Afr Amer 81 mL/min (>60); Glucose 98 mg/dL (74-106); High Density Lipoprotein 45 mg/dL; Potassium 4.1 mmol/L (3.5-5.1); Sodium Level 139 mmol/L (136-145); Thyroid Stim Hormone (TSH) 1.65 uIU/mL (0.358-3.74); Triglycerides 225 mg/dL; Very Low Density Lipoprotein 45 mg/dL (5-40)
== END | disposition home or self-care (01) ==
LOC: MFPLAB 08:30
PROVIDERS: PCP Family Medicine; Visit Provider Family Medicine
DX: E03.9 Hypothyroidism, unspecified (principal); E55.9 Vitamin D deficiency, unspecified; R03.0 Elevated blood-pressure reading, without diagnosis of hypertension
CPT/HCPCS: 36415; 80048; 80061; 82306; 84443

== ENCOUNTER → 2023-09-14 | Outpatient (CLI) | payer MEDICARE, SELFPAY ==
--- NOTE | 2023-09-14 16:29 | RAD_ITS ---
INDICATION: PAIN EXAMINATION/TECHNIQUE: X-RAY - RIGHT XR Knee Complete 4 Views or More 5 VIEWS COMPARISON: Left knee radiograph same day. FINDINGS: SOFT TISSUES: No soft tissue swelling or gas. No radiopaque foreign body. Moderate suprapatellar effusion. Medial and lateral meniscal degenerative chondrocalcinosis. BONES/JOINTS: No acute fracture. Normal alignment. Medial and patellofemoral compartment space narrowing and minimal osteophyte formation... No sclerotic or destructive changes observed. 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 Electronically Signed: Fransico Shook MD at 7:28 EDT ,
== END | disposition home or self-care (01) ==
LOC: MTRAD 16:27
PROVIDERS: PCP Family Medicine; Referring Provider Family Medicine; Visit Provider Family Medicine
DX: M25.561 Pain in right knee (principal)
CPT/HCPCS: 73564

== ENCOUNTER → 2023-09-18 | Outpatient (CLI) | payer MEDICARE, SELFPAY ==
[2023-09-18 12:59] LABS: ALB/GLOB Ratio 0.8 RATIO (0.9-2.4); AST(SGOT) 24 U/L (15-37); Alanine Aminotransfer ALT/SGPT 23 U/L (13-56); Albumin, Serum 3.4 g/dL (3.2-5.0); Alkaline Phosphatase 120 U/L (45-117); Anion Gap 7 (5-15); BUN 21 mg/dL (7-18); BUN/Creat Ratio 20.6 RATIO (10-20); Calcium,Total 9.3 mg/dL (8.5-10.1); Chloride 104 mmol/L (98-107); Cholesterol 223 mg/dL (200); Creatinine, Serum 1.02 mg/dL (0.55-1.02); EST Glomerular Filtration Rate 56 mL/min (>60); Est Glom Filt Rate - Afr Amer 68 mL/min (>60); Globulin 4.4 g/dL (2.2-4.2); Glucose 87 mg/dL (74-106); High Density Lipoprotein 48 mg/dL; Potassium 4.1 mmol/L (3.5-5.1); Protein, Total 7.8 g/dL (6.4-8.2); Sodium Level 138 mmol/L (136-145); T4 Free Direct 1.21 ng/dL (0.76-1.46); Thyroid Stim Hormone (TSH) 2.06 uIU/mL (0.358-3.74); Triglycerides 224 mg/dL; Very Low Density Lipoprotein 45 mg/dL (5-40)
== END | disposition home or self-care (01) ==
LOC: MFPLAB 10:22
PROVIDERS: PCP Family Medicine; Visit Provider Family Medicine
DX: E03.9 Hypothyroidism, unspecified (principal); E78.5 Hyperlipidemia, unspecified
CPT/HCPCS: 36415; 80053; 80061; 84439; 84443; 84481

== ENCOUNTER 2023-10-04 08:04 | Outpatient (CLI) | payer MEDICARE, SELFPAY ==
--- NOTE | 2023-10-04 08:28 | BD_ITS ---
STUDY: DUAL ENERGY X-RAY ABSORPTIOMETRY / DXA REASON FOR EXAM: Female, 77 years old. V76.12ScreeningBONE DENSITY REASON FOR EXAM TECHNIQUE: Bone Mineral Density (BMD) measurements of lumbar spine and bilateral hips were obtained. COMPARISON: Comparison is made with prior study dated May 10, 2021. FINDINGS: Lumbar Spine (L1-L4): g/cm2 (0.929) / T-score (-1.1) / Z-score (1.5) Findings are suggestive of osteopenia with a low fracture risk. Left Femur Total: g/cm2 (0.802) / T-score (-1.1) / Z-score (0.8) Left Femoral Neck: g/cm2 (0.827) / T-score (-0.2) / Z-score (2.0) Right Femur Total: g/cm2 (0.782) / T-score (-1.3) / Z-score (0.6) Right Femoral Neck: g/cm2 (0.756) / T-score (-0.8) / Z-score (1.4) The T-Scores on the most recent prior examination were: Lumbar Spine (L1-L4): There has been improvement of bone density since the previous examination. Left Femur Total: which represents an improvement of 1.3%. Right Femur Total: which represents a worsening of 1.1%. BD/Dexa Bone Density Study IMPRESSION: The patient is considered osteopenic as outlined below according to World Addi Organization (WHO) criteria with a low fracture risk. There has been improvement of bone density since the previous examination. Reference Information: The T-score is the number of standard deviations above or below the standard which is normal for young adults at their peak bone mineral density. The World Health Organization (WHO) interprets the T-scores as follows: Above -1 Normal bone density Between -1 and -2.5 Osteopenia Equal to / or below -2.5 Osteoporosis As a practical clinical guideline, osteopenia may be graded as follows: Mild -1 through -1.5 Moderate -1.6 through -2.0 Severe -2.1 through -2.4 The Z-score is the number of standard deviations above or below age-matched controls. A Z-score of less than -1.5 would be considered abnormal. References: 1. NIH Osteoporosis and Related Bone Diseases www osteo.org 2. International Society for Clinical Densitometry www iscd.org 3. National Osteoporosis Foundation www nof.org Electronically Signed: Calderon Olivarez MD at 13:07 EDT ,
== END 2023-10-04 23:59 | disposition home or self-care (01) ==
LOC: OPBD 08:05
PROVIDERS: PCP Family Medicine; Referring Provider Family Medicine; Visit Provider Family Medicine
DX: Z00.00 Encounter for general adult medical examination without abnormal findings (principal); M85.89 Other specified disorders of bone density and structure, multiple sites
CPT/HCPCS: 77080

== ENCOUNTER → 2023-12-28 | Outpatient (CLI) | payer MEDICARE, SELFPAY ==
[2023-12-28 12:39] LABS: Absolute Lymphocyte Count 2.11 X10^3/uL (0.83-4.51); Absolute Neutrophil Count 6.1 X10^3/uL (2.0-7.7); Basophil# 0.09 X10^3/uL; Basophil% 0.9 % (0-1); Eosinophil# 0.44 X10^3/uL; Eosinophils% 4.6 % (0-5); Hematocrit 42.4 % (37-47); Hemoglobin 13.3 g/dL (12.0-15.0); Lymphocyte # 2.11 X10^3/ul (0.83-4.51); Mean Corp Hgb Conc 31.4 g/dL (32-36); Mean Corpuscular Hgb 29.3 pg (27.0-32.0); Mean Corpuscular Volume 93.4 fL (81-99); Mean Platelet Vol. 12.6 fl (6.2-12.0); Monocyte# 0.72 X10^3/uL; Monocyte% 7.5 % (0-10); NRBC Flagged by Analyzer 0 % (0-5); Neutrophil # 6.11 X10^3/uL (2.7-7.7); Platelet Count 263 K/mm3 (150-450); RBC Distribution Width CV 13.6 % (11.6-14.6); RBC Distribution Width SD 46.2 fl (35.1-43.9); Red Blood Count 4.54 M/mm3 (4.2-5.4); White Blood Count 9.6 K/mm3 (4.4-11.0)
[2023-12-28 12:55] LABS: Anion Gap 6 (5-15); BUN 24 mg/dL (7-18); BUN/Creat Ratio 25.1 RATIO (10-20); Calcium,Total 9.6 mg/dL (8.5-10.1); Chloride 107 mmol/L (98-107); Creatinine, Serum 0.96 mg/dL (0.55-1.02); EST Glomerular Filtration Rate 60 mL/min (>60); Est Glom Filt Rate - Afr Amer 73 mL/min (>60); Glucose 96 mg/dL (74-106); Potassium 4.2 mmol/L (3.5-5.1); Sodium Level 138 mmol/L (136-145)
== END | disposition home or self-care (01) ==
LOC: MFPLAB 09:21
PROVIDERS: PCP Family Medicine; Visit Provider Family Medicine
DX: R05.9 Cough, unspecified (principal)
CPT/HCPCS: 36415; 80048; 85025

== ENCOUNTER → 2024-01-10 | Outpatient (CLI) | payer MEDICARE, SELFPAY ==
[2024-01-10 15:08] LABS: Absolute Lymphocyte Count 2.18 X10^3/uL (0.83-4.51); Absolute Neutrophil Count 7.2 X10^3/uL (2.0-7.7); Basophil# 0.11 X10^3/uL; Eosinophil# 0.42 X10^3/uL; Eosinophils% 3.9 % (0-5); Hematocrit 46.7 % (37-47); Hemoglobin 14.7 g/dL (12.0-15.0); Lymphocyte # 2.18 X10^3/ul (0.83-4.51); Mean Corp Hgb Conc 31.5 g/dL (32-36); Mean Corpuscular Hgb 29.2 pg (27.0-32.0); Mean Corpuscular Volume 92.7 fL (81-99); Mean Platelet Vol. 12.4 fl (6.2-12.0); Monocyte# 0.89 X10^3/uL; Monocyte% 8.2 % (0-10); NRBC Flagged by Analyzer 0 % (0-5); Neutrophil # 7.19 X10^3/uL (2.7-7.7); Platelet Count 297 K/mm3 (150-450); RBC Distribution Width CV 13.7 % (11.6-14.6); RBC Distribution Width SD 46.5 fl (35.1-43.9); Red Blood Count 5.04 M/mm3 (4.2-5.4); White Blood Count 10.9 K/mm3 (4.4-11.0)
[2024-01-10 15:30] LABS: Anion Gap 6 (5-15); BUN 25 mg/dL (7-18); BUN/Creat Ratio 22.3 RATIO (10-20); Calcium,Total 9.8 mg/dL (8.5-10.1); Chloride 105 mmol/L (98-107); Creatinine, Serum 1.12 mg/dL (0.55-1.02); EST Glomerular Filtration Rate 50 mL/min (>60); Est Glom Filt Rate - Afr Amer 61 mL/min (>60); Glucose 91 mg/dL (74-106); Potassium 4.1 mmol/L (3.5-5.1); Sodium Level 136 mmol/L (136-145)
== END | disposition home or self-care (01) ==
LOC: MFPLAB 11:26
PROVIDERS: PCP Family Medicine; Visit Provider Family Medicine
DX: R53.83 Other fatigue (principal); E03.9 Hypothyroidism, unspecified
CPT/HCPCS: 36415; 80048; 84439; 84443; 84481; 85025

== ENCOUNTER → 2024-03-20 | Outpatient (CLI) | payer MEDICARE, SELFPAY ==
[2024-03-20 12:25] LABS: Erythrocyte Sedimentation Rate 24 mm/hr (0-30)
[2024-03-20 13:23] LABS: Anion Gap 8 (5-15); BUN 17 mg/dL (7-18); Calcium,Total 9.7 mg/dL (8.5-10.1); Chloride 105 mmol/L (98-107); Creatinine, Serum 0.89 mg/dL (0.55-1.02); EST Glomerular Filtration Rate 65 mL/min (>60); Est Glom Filt Rate - Afr Amer 78 mL/min (>60); Free T3 2.5 pg/mL (2.18-3.98); Glucose 85 mg/dL (74-106); Potassium 4.1 mmol/L (3.5-5.1); Sodium Level 138 mmol/L (136-145); T4 Free Direct 1.55 ng/dL (0.76-1.46); Thyroid Stim Hormone (TSH) 0.145 uIU/mL (0.358-3.740)
== END | disposition home or self-care (01) ==
PROVIDERS: PCP Family Medicine; Referring Provider Family Medicine; Visit Provider Family Medicine
DX: E03.9 Hypothyroidism, unspecified (principal); M79.10 Myalgia, unspecified site
CPT/HCPCS: 36415; 80048; 84439; 84443; 84481; 85652

== ENCOUNTER → 2024-04-03 | Outpatient (CLI) | payer MEDICARE, SELFPAY ==
[2024-04-03 12:31] LABS: Erythrocyte Sedimentation Rate 53 mm/hr (0-30)
[2024-04-08 09:08] LABS: Angiotensin Convert Enzyme 15 U/L (14-82); QNTFERON TB Mitogen Value > 10.00 IU/mL (.); QNTFERON TB Nil Value 0.03 IU/mL (.); QNTFERON TB1+ Ag Value 0.04 IU/mL (.); QNTFERON TB2+ Ag Value 0.03 IU/mL (.); QNTIFERON TB Positive Criteria Negative (Negative)
== END | disposition home or self-care (01) ==
LOC: MFPLAB 10:21
PROVIDERS: PCP Family Medicine; Visit Provider Internal Medicine Pulmonary Disease
DX: I10 Essential (primary) hypertension (principal); R05.9 Cough, unspecified
CPT/HCPCS: 36415; 82164; 85652; 86140; 86480

== ENCOUNTER → 2024-05-20 | Outpatient (CLI) | payer MEDICARE, SELFPAY ==
[2024-05-20 21:38] LABS: CPK Total, Creatine Kinase 109 U/L (24-195)
[2024-05-22 04:08] LABS: Myoglobin, Serum 37 ng/mL (25-58)
== END | disposition home or self-care (01) ==
LOC: MTLAB 13:52
PROVIDERS: PCP Family Medicine; Referring Provider Internal Medicine Pulmonary Disease; Visit Provider Internal Medicine Pulmonary Disease
DX: R91.8 Other nonspecific abnormal finding of lung field (principal)
CPT/HCPCS: 36415; 82550; 83874

== ENCOUNTER → 2024-06-05 | Outpatient (CLI) | payer MEDICARE, SELFPAY ==
[2024-06-05 09:26] LABS: Anion Gap 12 (5-15); BUN 17 mg/dL (4-19); BUN/Creat Ratio 17.5 RATIO (10-20); Carbon Dioxide 25.9 mmol/L (21.0-32.0); Chloride 103 mmol/L (98-108); Cholesterol 223 mg/dL (<=200); Creatinine, Serum 0.94 mg/dL (0.70-1.20); EST Glomerular Filtration Rate 62 (>60); Glucose 96 mg/dL (70-99); High Density Lipoprotein 48 mg/dL; Low Density Lipoprotein Calc. 141 mg/dL; Potassium 4.3 mmol/L (3.3-5.1); Sodium Level 141 mmol/L (133-145); Thyroid Stim Hormone (TSH) 0.508 uIU/mL (0.300-4.200); Triglycerides 172 mg/dL; Very Low Density Lipoprotein 34 mg/dL (5-40); cholesterol:hdl ratio screen 4.68
== END | disposition home or self-care (01) ==
LOC: LAB 07:21
PROVIDERS: PCP Family Medicine; Referring Provider Family Medicine; Visit Provider Family Medicine
DX: E03.9 Hypothyroidism, unspecified (principal); R03.0 Elevated blood-pressure reading, without diagnosis of hypertension
CPT/HCPCS: 36415; 80048; 80061; 84439; 84443; 84481

== ENCOUNTER → 2024-10-06 | Outpatient (CLI) | payer MEDICARE, SELFPAY ==
[2024-10-06 13:31] LABS: AST(SGOT) 22 U/L (<=31); Alanine Aminotransfer ALT/SGPT 16 U/L (<=34); Albumin, Serum 4.1 g/dL (3.4-4.8); Alkaline Phosphatase 107 U/L (35-104); Anion Gap 13 (5-15); BUN 21 mg/dL (4-19); BUN/Creat Ratio 23.2 RATIO (10-20); Calcium,Total 9.6 mg/dL (7.6-11.0); Carbon Dioxide 22.8 mmol/L (21.0-32.0); Chloride 105 mmol/L (98-108); Cholesterol 215 mg/dL (<=200); Free T3 2.9 pg/mL (2.18-3.98); Globulin 3.2 g/dL (2.2-4.2); Glucose 93 mg/dL (70-99); Low Density Lipoprotein Calc. 133 mg/dL; Potassium 4.0 mmol/L (3.3-5.1); Triglycerides 169 mg/dL; Very Low Density Lipoprotein 34 mg/dL (5-40); cholesterol:hdl ratio screen 4.45
== END | disposition home or self-care (01) ==
LOC: MFPLAB 08:06
PROVIDERS: PCP Family Medicine; Visit Provider Family Medicine
DX: E03.9 Hypothyroidism, unspecified (principal); E78.5 Hyperlipidemia, unspecified
CPT/HCPCS: 36415; 80053; 80061; 84439; 84443; 84481

== ENCOUNTER → 2024-12-11 | Outpatient (CLI) | payer MEDICARE, SELFPAY ==
--- NOTE | 2024-12-11 07:38 | ECHOD_ITS ---
Reason For Study Reason For Study: Hypertension Procedure This was a 2D Doppler, Color Flow transthoracic echocardiogram. Myocardial strain analysis was performed in this exam to aid in the assessment of cardiac function. Exam performed in department. Left Ventricle Normal LV size. The global longitudinal strain = -18.7 % (normal). The left ventricular ejection fraction is 70 %. No regional wall motion abnormalities noted. Right Ventricle Normal RV size. Normal systolic function. Atria Normal left atrium. Normal right atrium. Mitral Valve Normal mitral valve. Tricuspid Valve Normal tricuspid valve. Aortic Valve Trisinus/trileaflet aortic valve. Mild diffuse aortic valve thickening. Pulmonic Valve Normal pulmonic valve. Great Vessels Normal aortic root. Pericardium/Pleural No pericardial effusion. MMode/2D Measurements & Calculations LVIDd: 3.9 cm IVSd: 0.86 cm Ao root diam: 3.6 cm LVIDs: 2.3 cm LVPWd: 0.88 cm RVDd: 3.0 cm FS: 42.1 % LAV(MOD-bp): 40.8 ml LVAd ap4: 19.0 cm2 LVAd ap2: 21.4 cm2 LAV(MOD-bp) Indexed: 21.6 ml/m2 LVLd ap4: 7.0 cm LVLd ap2: 7.4 cm LAV(MOD-sp2): 36.9 ml EDV(MOD-sp4): 42.7 ml EDV(MOD-sp2): 50.1 ml LAV(MOD-sp4): 43.2 ml EDV(sp4-el): 43.9 ml EDV(sp2-el): 52.4 ml LVAs ap4: 9.0 cm2 LVAs ap2: 8.8 cm2 LVLs ap4: 6.0 cm LVLs ap2: 6.2 cm ESV(MOD-sp4): 13.4 ml ESV(MOD-sp2): 11.6 ml ESV(sp4-el): 11.6 ml ESV(sp2-el): 10.5 ml EF(MOD-sp4): 68.6 % EF(MOD-sp2): 76.8 % EF(sp4-el): 73.5 % SV(MOD-sp4): 29.3 ml SV(MOD-sp2): 38.5 ml SV(sp4-el): 32.3 ml SI(MOD-sp4): 15.5 ml/m2 SI(MOD-sp2): 20.4 ml/m2 LA A4 area: 15.3 cm2 LA dimension(2D): 3.4 cm RA A4 area: 9.7 cm2 TAPSE: 1.5 cm Time Measurements MV dec time: 0.28 sec Doppler Measurements & Calculations MV E max carlo: 87.6 cm/sec Lat Peak E' Carlo: 4.3 cm/sec Med Peak E' Carlo: 6.6 cm/sec MV A max carlo: 107.8 cm/sec E/E' lat: 20.3 E/E' med: 13.2 MV E/A: 0.81 Ao V2 max: 137.5 cm/sec LV V1 max: 118.5 cm/sec MV dec slope: 310.3 cm/sec2 Ao max P.6 mmHg LV V1 max P.6 mmHg Ao V2 mean: 87.5 cm/sec LV V1 mean P.7 mmHg Ao mean P.7 mmHg LV V1 mean: 76.5 cm/sec Ao V2 VTI: 26.3 cm LV V1 VTI: 25.6 cm AV (velocity ratio): 0.97 PA V2 max: 100.2 cm/sec TR max carlo: 227.6 cm/sec TR max P.8 mmHg ECHO/Echo Complete Interpretation Summary Normal LV size. The global longitudinal strain = -18.7 % (normal). The left ventricular ejection fraction is 70 %. Mild diffuse aortic valve thickening. Ordering Physician: Leah Pearce Referring Physician: Jesus Rodriguez Performed By: Benjamin Fletcher [id number]
--- OUTSIDE RECORDS SUMMARY | 2024-12-11 07:40 | XMS RPT_ITS | CCD ---
Author Organization [facility] CliniSymi Care Team Providers Care Hammerer Tab Name Role Phone Mason Link MD Unavailable Jesus Peters MD Primary Care Provider Dr. Jesus Peters Primary Care Provider [phone] Jesus Peters Referring Provider Ramses OUTBOUND SUPERVISOR, NAVJOT Lynn Attending Provider Dr. Jesus Peters Primary Care Provider [phone] Jesus Peters Referring Provider [phone] Ermias Clifton Attending Provider Jesus Peters MD Primary Care Provider [phone] JESUS PETERS Primary Care Unavailable NAYELI PEREZ Referring UnavailJESUS Maya Primary Care Unavailable NAYELI PEREZ Admitting UnavailNAYELI Castillo Attending Unavailavelino e JESUS PTEERS Primary Care Unavailable Jesus Peters MD Primary Care Provider [phone] Jesus Peters Primary Care Provider [phone] Erwin Ibarra Attending Provider Dr. Jesus Peters Referring Provider [phone] MD Morgan Juarez Attending Provider [phone] Jesus Peters MD Primary Care Provider [phone] KAMILA MERCADO Referring Unavailable JESUS PETERS Primary Care Unavailable KAMILA MERCADO Attending Unavailable JESUS PETERS Primary Care Unavailable JESUS PETERS Primary Care Unavailable KAMILA MERCADO Referring Unavailable KAMILA MERCADO Attending Unavailable JESUS PETERS Primary Care Unavailable Fran ALBERTO, Dr. Lee Primary Care Provider [phone] Fran ALBERTO, Dr. Lee Attending Provider Fran ALBERTO, Dr. Lee Referring Provider Saurabh ALBERTO, Dr. Erwin Diaz Attending Provider [phone] Saurabh ALBERTO, Dr. Erwin Diaz Referring Provider Fran ALBERTO, Dr. Lee Primary Care Provider [phone] Fran ALBERTO, Dr. Lee Attending Provider Fran ALBERTO, Dr. Lee Primary Care Physician Fran ALBERTO, Dr. Lee Attending Physician Fran ALBERTO, Dr. Lee Referring Provider Ramses CASTILLO-C, Leah Attending Physician Ramses OUTBOUND SUPERVISOR, Leah Attending Unavailable Peters, Jesus Referring Unavailable Peters, Jesus Primary Care Unavailable Peters, Jesus Attending Unavailable Peters, Jesus Primary Care Unavailable Ramses OUTBOUND SUPERVISOR, Leah Attending Unavailable Ramses OUTBOUND SUPERVISOR, Leah Referring Unavailable Peters, Jesus Primary Care Unavailable Peters, Jesus Primary Care Unavailable Peters, Jesus Attending Unavailable Peters, Jesus Primary Care Unavailable Peters, Jesus Attending Unavailable Peters, Jesus Primary Care Unavailable Peters, Jesus Attending Unavailable Peters, Jesus Referring Unavailable Sibilia, Erwin Diaz Attending Unavailable Peters, Jesus Primary Care Unavailable Sibilia, Erwin Diaz Referring Unavailable Peters, Jesus Primary Care Unavailable Sibilia, Erwin Diaz Attending Unavailable Peters, Jesus Attending Unavailable Peters, Jesus Referring Unavailable Peters, Jesus Primary Care Unavailable Allergies Allergy Classification Reported Allergen(s) Allergy Type Date of Onset Reaction(s) Facility (20 sources) clindamycin; Translations: [CLINDAMYCIN] drug allergy 07-20-19 16 Rash, Itching, Other: See Comments [facility] Work Phone: (20 sources) gemfibrozil; Translations: [GEMFIBROZIL] drug allergy 01-08-20 10 GI Upset, Vomiting, Other: See Comments [facility] Work Phone: Comment on above: FEVER (3 sources) HYDROmorphone drug allergy 11-26-19 10 [facility] Work Phone: (20 sources) meloxicam; Translations: [MELOXICAM] drug allergy 11-06-19 12 Other: See Comments [facility] Work Phone: [phone] (5 sources) morphine; Translations: [MORPHINE] drug allergy 07-04-19 07 [facility] Work Phone: [phone] (3 sources) nitrofurantoin drug allergy 03-19-19 13 Gi-upset [facility] Work Phone: [phone] (3 sources) penicillin v drug allergy 11-26-19 10 [facility] Work Phone: [phone] (20 sources) predniSONE; Translations: [PREDNISONE] drug allergy 07-04-19 07 Unknown, Other: See Comments [facility] Work Phone: [phone] Comment on above: 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 [facility] Work Phone: [phone] (3 sources) CLINDAMYACIN drug allergy 07-20-19 16 [facility] Work Phone: [phone] (3 sources) MYCRODANTIN drug allergy 11-26-19 10 [facility] Work Phone: [phone] (20 sources) Chlorhexidine; Translations: [CHLORHEXIDINE] Drug Allergy 02-10-20 21 Itching [facility] (20 sources) Erythromycin; Translations: [ERYTHROMYCIN BASE] Drug Allergy 02-10-20 21 Hives [facility] (20 sources) fentaNYL; Translations: [FENTANYL] Drug Allergy 02-10-20 21 Unknown, Other: See Comments [facility] Comment on above: DECREASED LEVEL OF C ONSIOUSNESS (5 sources) HMG-CoA reductase inhibitor; Translations: [HIWKUJR-KRE-RMX REDUCTASE INHIBITORS] Drug Intolerance 05-07-19 22 Other: See Comments [facility] (20 sources) HYDROmorphone; Translations: [HYDROMORPHONE] Drug Allergy 11-08-19 12 Diarrhea, Vomiting, Other: See Comments [facility] (20 sources) Latex; Translations: [LATEX] Drug Allergy 02-10-20 21 Rash [facility] (20 sources) Morphine Drug Allergy 07-04-19 07 Diarrhea, Vomiting [facility] (19 sources) Nitrofurantoin; Translations: [NITROFURANTOIN MACROCRYSTALLINE] Drug Allergy 07-04-19 07 GI Upset [facility] (20 sources) Nitrofurantoin; Translations: [NITROFURANTOIN] Drug Allergy 02-10-20 21 Vomiting [facility] (8 sources) Penicillins; Translations: [PENICILLINS] Drug Allergy 07-04-19 07 Hives [facility] (19 sources) Povidone-Iodine; Translations: [POVIDONE-IODINE] Drug Allergy 09-29-19 20 [facility] Work Phone: (20 sources) Sulfonamides (Antibiotic); Translations: [SULFA (SULFONAMIDE ANTIBIOTICS)] Propensity to adverse reactions to drug 07-04-19 07 Other: See Comments [facility] (19 sources) Varicella-Zoster Virus Vaccine Live ([employer]) strain; Translations: [ZOSTER VACCINE LIVE (PF)] Drug Allergy 06-10-19 08 Vomiting, Other: See Comments [facility] (20 sources) Zinc; Translations: [ZINC] Drug Allergy 02-10-20 21 GI Upset [facility] (20 sources) Iodinated Contrast Media; Translations: [IODINATED CONTRAST MEDIA] Drug Allergy 06-25-19 20 [facility] Work Phone: (16 sources) Xqkajxx-Iwu-Fiw Reductase Inhibitor; Translations: [Oaynqyj-Wkr-Rgo Reductase Inhibitor] Propensity to adverse reactions 02-10-20 21 myalgias [facility] Comment on above: doesn't lower choles terol (2 sources) BAND AID Allergy to substance 02-10-20 Rash [facility] Work Phone: (2 sources) shingle vaccine Allergy to substance 02-10-20 21 Vomiting [facility] Work Phone: (14 sources) Adhesive Tape; Translations: [adhesive tape] Allergy to substance 11-23-19 Rash [facility] Comment on above: (FROM BAND-AIDS) (13 sources) Penicillins Allergy to substance 11-23-19 Hives [facility] (13 sources) Sulfonamides (Antibiotic) Allergy to substance 11-23-19 PT UNSURE OF REACTION [facility] (13 sources) Triiodobenzoic Acids Allergy to substance 11-23-19 Rash [facility] (13 sources) Varicella zoster virus glycoprotein E Drug Allergy 11-23-19 Other [facility] Comment on above: VOMITING, BP ELEVATE D, COULDN'T STAND (14 sources) vaccine adjuvant system, AS01B liposomal; Translations: [vaccine adjuvant system, AS01B liposomal] Allergy to substance 11-23-19 Other [facility] Comment on above: VOMITING, BP ELEVATE D, COULDN'T STAND (14 sources) HMG-CoA reductase inhibitor Drug Intolerance 05-07-19 22 Other: See Comments [facility] (13 sources) Penicillins Drug Allergy 07-04-19 07 [facility] (15 sources) guaiFENesin / HYDROmorphone; Translations: [DILAUDID COUGH] Drug Allergy 07-29-19 23 Vomiting [facility] (15 sources) Iodine; Translations: [IODINE] Drug Allergy 07-29-19 Other: See Comments [facility] (1 source) Chlorhexidine Drug Allergy 11-15-19 25 [facility] (1 source) Erythromycin Drug Allergy 11-15-19 25 [facility] (1 source) fentaNYL Drug Allergy 11-15-19 25 [facility] (1 source) Gemfibrozil Drug Allergy 11-15-19 25 [facility] (1 source) HYDROmorphone Drug Allergy 11-15-19 25 [facility] (1 source) Latex Drug allergy (disorder) 11-15-19 25 [facility] (1 source) Morphine Drug Allergy 11-15-19 25 [facility] (1 source) Nitrofurantoin Drug Allergy 11-15-19 25 [facility] (1 source) Penicillins Drug allergy (disorder) 11-15-19 25 [facility] (1 source) Sulfonamides (Antibiotic) Drug allergy (disorder) 11-15-19 [facility] (1 source) Zinc Drug Allergy 11-15-19 [facility] (1 source) Iodinated Contrast Media Drug allergy (disorder) 11-15-19 [facility] (1 source) varicella-zoster virus glycoprotein E, recombinant Drug allergy (disorder) 11-15-19 [facility] Medications Current Medications Medication Drug Class(es) Dates Sig (Normalized) Sig (Original) antiox #8/om3/dha/epa/lut/ zeax (PRESERVISION AREDS 2, OMEGA-3, ORAL) (6 sources) antiox #8/om3/dha/epa/lut/ zeax (PRESERVISION AREDS 2, OMEGA-3, ORAL) Take by mouth once daily. Active celecoxib 200 mg oral capsule (20 sources) Nonsteroidal Anti-inflammatory Drug Start: 11-22-2021 take 1 capsule by mouth once daily Celecoxib 200 mg capsule Active 200 mg PO DAILY November 22, 2021 12:00am Complies with drug therapy Comment on above: Take 200 mg by mouth every morning. 0700 AM ciprofloxacin 500 mg oral tablet (2 sources) Quinolone Antimicrobial Start: 11-24-2022 End: 12-04-2022 take 1 tablet by mouth twice daily ciprofloxacin HCl (CIPRO) 500 mg tablet Take 1 tablet by mouth two times a day for 10 days. 20 tablet 0 11/24/2022 12/04/2022 Active Comment on above: Take 1 tablet by rocio two times a day for 10 days. iv contrast (will be provided with radiology test) (1 source) Start: 11-12-2023 End: 11-13-2023 iv contrast (will be provided with radiology test) CT Chest W -Inject, intravenously, once for 1 dose.No IV access, insert saline lock prior to the beginning of sedation, infusion, injection of imaging exam. Discontinue saline lock post exam. If Pt. has a central line or IVAD, may access for administration according to line specific nursing protocol. Once exam is complete flush line and de-access according to line specific nursing protocol in the CT contrast administration guidelines link. 1 Each 11/12/2023 11/13/2023 Active losartan potassium 25 mg oral tablet (1 source) Angiotensin 2 Receptor Cesar Start: 11-12-2024 take 1 tablet by mouth at bedtime Losartan 25 mg tablet Active 25 mg PO AT BEDTIME November 12, 2024 12:00am Complies with drug therapy milnacipran hydrochloride 25 mg oral tablet (2 sources) Serotonin and Norepinephrine Reuptake Inhibitor Start: 11-14-2024 take 1 tablet by mouth once Milnacipran (Savella) 25 mg tablet Active 25 mg PO ONCE November 14, 2024 9:11am Complies with drug therapy Start: 11-14-2024 End: 11-14-2024 take 1 tablet by mouth twice daily Milnacipran (Savella) 25 mg tablet Discontinued 25 mg PO TWICE A DAY November 14, 2024 12:00am November 14, 2024 9:12am levothyroxine sodium 0.05 mg oral tablet (20 sources) l-Thyroxine Start: 11-14-2024 Levothyroxine (Synthroid) 50 mcg tablet Active 75 ug PO DAILY November 14, 2024 8:37am Complies with drug therapy Start: 11-14-2024 take 1 capsule by mo ut once daily Levothyroxine 50 mcg capsule Active 50 ug PO daily November 14, 2024 12:00am [facility] Complies with drug therapy Start: 03-01-2018 End: 11-14-2024 take 1 tablet by mouth once daily Levothyroxine (Synthroid) 50 mcg tablet Discontinued 50 ug PO DAILY November 22, 2021 12:00am November 14, 2024 8:38am Start: 03-26-2014 End: 11-22-2021 take 2 tablets by mouth once daily Levothyroxine 25 MCG tablet Discontinued 50 ug PO DAILY March 26, 2014 1:00am November 22, 2021 2:42pm thyroid Start: 03-26-2014 End: 11-22-2021 take 50 ug by mouth once daily Levothyroxine Discontin ued 50 MCG PO DAILY March 26, 2014 1:00am November 22, 2021 2:42pm take 1 tablet by rocio th once daily SYNTHROID 50 MCG TABS One tablet by mouth daily. LEVOTHYROXINE SODIUM [id number] Anali Martino LPN take 1 tablet by rocio th once daily SYNTHROID 125 MCG TABS One tablet by mouth daily LEVOTHYROXINE SODIUM [id number] Kamila Mercado take 1 tablet by rocio th once daily SYNTHROID 50 MCG TABS One tablet by mouth daily. 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 Take 50 mcg by mouth daily before breakfast. Completed/Discontinued Medications Medication Drug Class(es) Dates Sig (Normalized) Sig (Original) acetaminophen 325 mg / oxyCODONE hydrochloride 5 mg oral tablet (20 sources) Opioid Agonist Start: 02-09-2021 End: 11-22-2021 Oxycodone-Acetamino phen 1 TABLET tablet Discontinued 1 {tbl} PO EVERY 6 HOURS NEEDED as needed for pain 20 February 09, 2021 November 22, 2021 2:43pm Fracture of proximal end of left humerus Start: 02-09-2021 End: 11-22-2021 take 1 tablet by mouth every six hours as needed Oxycodone-Acetaminophen Discontinued 1 TABLET PO EVERY 6 HOURS NEEDED 08 07February 09, 2021 November 22, 2021 2:43pm Start: 05-09-2017 End: 08-14-2018 Oxycodone-Acetaminophen 1 TA BLET tablet Discontinued 1 - 2 {tbl} PO 4 TIMES DAILY NEEDED as needed for Pain 50 6 0 May 09, 2017 3:24pm August 14, 2018 1:29pm Other acute postprocedural pain Start: 05-09-2017 End: 08-14-2018 take 1 tablet by mouth four times daily as needed Oxycodone-Acetaminophen Discontinued 1 - 2 TABLET PO 4 TIMES DAILY NEEDED 50 6 May 09, 2017 3:24pm August 14, 2018 1:29pm Start: 07-13-2015 End: 06-13-2016 Oxycodone-Acetaminophen 1 TA BLET tablet Discontinued 1 - 2 {tbl} PO 4 TIMES DAILY NEEDED as needed for Pain July 13, 2015 12:21pm June 13, 2016 1:38pm Start: 07-13-2015 End: 06-13-2016 take 1 tablet by mouth four times daily as needed Oxycodone-Acetaminophen Discontinued 1 - 2 TABLET PO 4 TIMES DAILY NEEDED July 13, 2015 12:21pm June 13, 2016 1:38pm Start: 03-26-2014 End: 04-03-2014 take 1-2 tablets by mouth four times daily as needed for pain PERCOCET 5-325 MG TABS one to two tablet s by mouth four times daily as needed for pain OXYCODONE-ACETAMINOPHEN [id number] Kamila López LPN Start: 03-26-2014 take 1-2 tablets by mouth four times daily as needed for pain PERCOCET 5-325 MG TABS one to two tablet s by mouth four times daily as needed for pain OXYCODONE-ACETAMINOPHEN [id number] Mason Link MD Start: 08-20-2013 take 1 tablet by rocio th four times daily as needed for pain PERCOCET 5-325 MG TABS One tablet by mouth four times daily as needed for pain OXYCODONE-ACETAMINOPHEN [id number] Mason Link MD Start: 08-20-2013 End: 10-07-2013 take 1 tablet by mouth four times daily as needed for pain PERCOCET 5-325 MG TABS One tablet by mouth four times daily as needed for pain OXYCODONE-ACETAMINOPHEN [id number] Kamila López LPN Start: 07-07-2013 End: 08-12-2013 take 1-2 tablets by mouth four times daily as needed for pain PERCOCET 5-325 MG TABS one to two tablet s by mouth four times daily as needed for pain OXYCODONE-ACETAMINOPHEN [id number] Kamila López LPN Start: 07-07-2013 take 1-2 tablets by mouth four times daily as needed for pain PERCOCET 5-325 MG TABS one to two tablet s by mouth four times daily as needed for pain OXYCODONE-ACETAMINOPHEN [id number] Mason Link MD Start: 06-10-2013 take 1-2 tablets by mouth four times daily as needed for pain PERCOCET 5-325 MG TABS one to two tablet s by mouth four times daily as needed for pain OXYCODONE-ACETAMINOPHEN [id number] Mason Link MD Start: 06-10-2013 End: 06-24-2013 take 1-2 tablets by mouth four times daily as needed for pain PERCOCET 5-325 MG TABS one to two tablet s by mouth four times daily as needed for pain OXYCODONE-ACETAMINOPHEN [id number] Kamila Jeison López LPN Start: 05-21-2013 End: 04-03-2014 take 1-2 tablets by mouth four times daily as needed for pain PERCOCET 5-325 MG TABS one to two tablet s by mouth four times daily as needed for pain OXYCODONE-ACETAMINOPHEN [id number] Kamila Jeison López LPN Start: 05-21-2013 take 1-2 tablets by mouth four times daily as needed for pain PERCOCET 5-325 MG TABS one to two tablet s by mouth four times daily as needed for pain OXYCODONE-ACETAMINOPHEN [id number] Mason Link MD Start: 05-21-2013 End: 06-24-2013 take 1-2 tablets by mouth four times daily as needed for pain PERCOCET 5-325 MG TABS one to two tablet s by mouth four times daily as needed for pain OXYCODONE-ACETAMINOPHEN [id number] Kamila Jeison López LPN acyclovir 800 mg oral tablet (20 sources) Herpesvirus Nucleoside Analog DNA Polymerase Inhibitor, Herpes Simplex Virus Nucleoside Analog DNA Polymerase Inhibitor, Herpes Zoster Virus Nucleoside Analog DNA Polymerase Inhibitor Start: 06-25-2019 End: 11-21-2019 Acyclovir 800 MG tablet Discontinued 800 mg PO NEEDED as needed for herpes simplex June 25, 2019 12:00am November 21, 2019 11:37am Start: 05-08-2013 End: 06-11-2013 take 1 tablet by mouth twice daily as needed Acyclovir 800 MG tablet Discontinued 800 mg PO TWICE DAILY NEEDED May 08, 2013 12:00am June 11, 2013 1:49pm End: 11-06-2013 take 1 tablet by mouth five times daily ACYCLOVIR 800 MG TABS take one tablet by mouth five times daily for 10 days ACYCLOVIR [id number] Bo Ann MA aspirin 81 mg chewable tablet (20 sources) Nonsteroidal Anti-inflammatory Drug Start: 01-12-2014 End: 07-13-2015 take 1 tablet by mouth once daily Aspirin 81 MG Tab.Chew Discontinued 81 mg PO DAILY@0800 January 12 2014 1:00am July 13, 2015 12:21pm Start: 05-08-2013 End: 06-11-2013 take 1 tablet by mouth once daily Aspirin 81 MG tablet Discontinued 81 mg PO DAILY@0800 May 08, 2013 12:00am June 11, 2013 1:48pm Start: 01-07-2010 End: 04-17-2013 take 1 tablet by mouth once daily Aspirin 81 mg ORAL Tab Take one(1) tablet daily. 30 Tab 11 01/07/2010 Active take 1 tablet by rocio th once daily ASPIRIN EC 325 MG TBEC One tablet by mouth daily ASPIRIN [id number] Sri Ely Ken End: 04-17-2013 take 1 tablet by mouth once daily ASPIRIN 81MG One tablet by mouth daily ASPIRIN 81MG Jerome Shukla Comment on above: Take one(1) tablet d anne. atorvastatin 20 mg oral tablet (10 sources) HMG-CoA Reductase Inhibitor Start: 012 End: 013 take 1 tablet by mouth once daily atorvastatin 20 mg tablet Indications: Pure hypercholesterolemia Take 1 tablet by mouth once daily. 30 tablet 6 11/08/2011 Active Comment on above: Take 1 tablet by rocio th once daily. azithromycin 250 mg oral tablet (6 sources) Macrolide Antimicrobial Start: 011 End: 011 ZITHROMAX 250 MG TAB (AZITHROMYCIN) (Z-PACK) Take two (2 ) tablets day one, then one (1) tablet a day for four (4) more days ZITHROMAX 250 MG TAB (AZITHROMYCIN) (Z-PACK) Marilia Esteves PA-C Start: 03-09-2010 End: 03-14-2010 ZITHROMAX 250 MG TAB (AZITHR OMYCIN) (Z-PACK) Take two (2 ) tablets day one, then one (1) tablet a day for four (4) more days ZITHROMAX 250 MG TAB (AZITHROMYCIN) (Z-PACK) Marilia Esteves PA-C bisacodyl 5 mg delayed release oral tablet (20 sources) Stimulant Laxative Start: 05-21-2013 End: 07-21-2013 take 1 tablet by mouth once daily Bisacodyl 5 MG tablet Discontinued 5 mg PO DAILY 30 0 May 21, 2013 12:00am June 11, 2013 1:48pm Start: 05-21-2013 End: 07-21-2013 take 1 tablet by mouth once daily DULCOLAX 5 MG TBEC One tablet by mouth daily BISACODYL [id number] Mason Link MD calcium ascorbate 50 mg / ferrous asparto glycinate 50 mg / polysaccharide iron complex 100 mg / succinic acid 50 mg oral capsule (15 sources) Start: 05-21-2013 End: 06-11-2013 Iron Aspgl,Ps Complex-Vit C-Sa (Ferrex 150 Plus) 150 MG capsule Discontinued 150 mg PO DAILY WITH MEALS 30 May 21, 2013 12:00am June 11, 2013 1:43pm calcium carbonate 1500 mg oral tablet (6 sources) End: 04-17-2013 take 0.5 tablet by mouth once daily CALCIUM CARBONATE 600 MG TABS .5 tablet by mouth once daily CALCIUM CARBONATE [id number] Bo Ann MA calcium carbonate 1500 mg / cholecalciferol 0.01 mg oral tablet (15 sources) Vitamin D Start: 05-08-2013 End: 06-11-2013 Calcium Carbonate-Vitamin D3 (Calcium 600 + Vit D Tablet) 1 EACH tablet Discontinued 1 NMA PO DAILY May 08, 2013 12:00am June 11, 2013 1:47pm calcium carbonate / vitamin D (6 sources) Start: 11-25-2009 take 1 tablet by mouth twice daily CALCIUM 500+D 500-400 MG-UNIT TABS One tablet by mouth twice daily. CALCIUM CARBONATE-VITAMIN D [id number] Douglas Moncada MD Start: 11-25-2009 End: 03-19-2012 take 1 tablet by mouth twice daily CALCIUM 500+D 500-400 MG-UNIT TABS One tablet by mouth twice daily. CALCIUM CARBONATE-VITAMIN D [id number] Bo Ann MA cholecalciferol 0.025 mg oral capsule (20 sources) Vitamin D Start: 11-21-2019 End: 01-31-2021 take 1 capsule by mouth once daily Cholecalciferol (Vitamin D3) 25 mcg (1,000 unit) capsule Discontinued 25 ug PO DAILY November 21, 2019 12:00am January 31, 2021 2:25pm Start: 05-02-2017 End: 08-14-2018 Cholecalciferol (Vitamin D3) 2,000 UNIT capsule Discontinued 3000 U PO DAILY May 02, 2017 12:00am August 14, 2018 1:30pm SUPPLEMENT Start: 05-02-2017 End: 08-14-2018 take 3000 [IU] by mouth once daily Cholecalciferol (Vitamin D3) Discontinued 3000 UNIT PO DAILY May 02, 2017 12:00am August 14, 2018 1:30pm Start: 05-08-2013 End: 06-11-2013 take 2 tablets by mouth every week Cholecalciferol (Vitamin D3) (Vitamin D3) 2,000 UNIT tablet Discontinued 4000 U PO EVERY WEEK May 08, 2013 12:00am June 11, 2013 1:45pm Start: 12-18-2011 take 3 capsules by m outh once daily Cholecalciferol, Vitamin D3, 2,000 unit cap Take 6,000 Units by mouth once daily. 0 12/18/2011 Active End: 04-17-2013 take 2 tablets by mouth once daily VITAMIN D3 2000 UNIT CAPS Two tablets by mouth daily CHOLECALCIFEROL [id number] Jerome Shukla Comment on above: Take 6,000 Units by mouth once daily. cholecalciferol 5000 unt / folic acid 1 mg oral tablet (4 sources) Vitamin D vitamin D3-folic acid 5,000 unit- 1 mg tab Take by mouth. 0 Active Comment on above: Take by mouth. clindamycin 300 mg oral capsule (20 sources) Lincosamide Antibacterial Start: 06-27-19 End: 07-16-19 20 take 1 capsule by mouth three times daily Clindamycin Hcl 300 MG capsule Discontinued 300 mg PO THREE TIMES A DAY 42 0 June 27, 2019 12:00am July 16, 2019 9:14am Start: 05-09-2017 End: 08-14-2018 take 1 capsule by mouth three times daily Clindamycin Hcl 300 MG capsule Discontinued 300 mg PO THREE TIMES A DAY 15 0 May 09, 2017 12:00am August 14, 2018 1:30pm Start: 07-13-2015 End: 06-13-2016 take 1 capsule by mouth three times daily Clindamycin Hcl (Cleocin) 300 MG capsule Discontinued 300 mg PO THREE TIMES A DAY 12 0 July 13, 2015 12:00am June 13, 2016 1:39pm Start: 03-26-2014 End: 04-03-2014 take 1 tablet by mouth three times daily CLEOCIN 300 MG CAPS One tablet by mouth three times daily CLINDAMYCIN HCL [id number] Mason Link MD Start: 05-21-2013 End: 06-10-2013 take 1 tablet by mouth three times daily CLEOCIN 300 MG CAPS One tablet by mouth three times daily CLINDAMYCIN HCL [id number] Kamila López LPN ubidecarenone 100 mg oral capsule (16 sources) Start: 12-18-2011 End: 03-20-2012 take 1 capsule by mouth once daily coenzyme Q10 (CO Q-10) 100 mg cap Take 1 capsule by mouth once daily. 0 12/18/2011 Active ubidecarenone Q- 10 (CO Q-10) 10 mg cap Take by mouth once daily. Active [facility] [place] once daily CO Q-10 100 MG CAPS One tablet by mouth daily COENZYME Q10 [id number] Bo Ann SC End: 03-20-2012 take 1 tablet by mouth once daily CO Q-10 100 MG CAPS One tablet by mouth daily COENZYME Q10 [id number] Alysha Krueger MD Comment on above: Take 1 capsule by mo [facility] once daily. diazePAM 5 mg oral tablet (18 sources) Benzodiazepine Start: 4 End: 4 take 1 tablet by mouth four times daily as needed for muscle spasms VALIUM 5 MG TABS One tablet by mouth four times daily as needed for spasm DIAZEPAM [id number] Kamila López LPN docusate sodium 100 mg oral capsule (20 sources) Start: 8 End: 9 take 1 capsule by mouth twice daily Docusate Sodium 100 MG capsule Discontinued 100 mg PO TWICE A DAY 60 0 May 09, 2017 12:00am August 14, 2018 1:29pm Start: 05-21-2013 End: 07-21-2013 take 1 tablet by mouth twice daily COLACE 100 MG CAPS One tablet by mouth twice daily DOCUSATE SODIUM [id number] Kamila López LPN Start: 05-21-2013 End: 07-21-2013 take 1 tablet by mouth twice daily COLACE 100 MG CAPS One tablet by mouth twice daily DOCUSATE SODIUM [id number] Kamila López LPN doxycycline hyclate 100 mg oral capsule (19 sources) Tetracycline-class Drug Start: 03-01-2018 End: 11-21-2019 take 1 capsule by mouth twice daily Doxycycline Hyclate 100 MG capsule Discontinued 100 mg PO TWICE A DAY 10 July 29, 2019 12:00am November 21, 2019 11:36am ergocalciferol 71459 unt oral tablet (6 sources) Provitamin D2 Compound End: 12-28-2015 take 1 tablet by mouth every week VITAMIN D (ERGOCALCIFEROL) 10213 UNIT CAPS One tablet by mouth weekly ERGOCALCIFEROL [id number] Hoskins M Alam End: 12-28-2015 take 1 tablet by mouth every week VITAMIN D (ERGOCALCIFEROL) 34483 UNIT CAPS One tablet by mouth weekly ERGOCALCIFEROL [id number] Hoskins M Alam 3.5 ml evolocumab 120 mg/ml cartridge (20 sources) PCSK9 Inhibitor Start: 08-14-2018 End: 11-22-2021 Evolocumab (Repatha Pushtronex) 420 mg/3.5 mL wearable injector Discontinued 420 mg SC .1xmon 10.5 3 February 22, 2021 3:22pm November 22, 2021 2:47pm cholesterol Please send 3 month supply inject 140 mg by sub cutaneous injection every other week evolocumab (REPATHA PUSHTRONEX) 420 mg/3 .5 mL Inject 140 mg subcutaneously every 2 weeks. TAKES FIRST OF THE MONTH Active Comment on above: Inject subcutaneousl y once every month. Inject 420 mg subcut aneously once every month. TAKES FIRST OF THE MONTH ezetimibe 10 mg oral tablet (6 sources) Dietary Cholesterol Absorption Inhibitor End: 6 take 1 tablet by mouth once daily ZETIA 10 MG TABS One tablet by mouth daily EZETIMIBE [id number] Kamila Mercado IRON POLYSACCH [id number] (6 sources) Vitamin B12 Start: 4 End: 4 take 1 tablet by mouth once daily at mealtime IFEREX 150 FORTE 150-25-1 MG-MCG-MG CAPS One tablet by mouth daily with meals IRON POLYSACCH [id number] Kamila López [employer] Start: 05-21-2013 End: 07-21-2013 take 1 tablet by mouth once daily at mealtime IFEREX 150 FORTE 150-25-1 MG-MCG-MG CAPS One tablet by mouth daily with meals IRON POLYSACCH [id number] Kamila López [employer] Start: 05-21-2013 take 1 tablet by rocio th once daily at mealtime IFEREX 150 FORTE 150-25-1 MG-MCG-MG CAPS One tablet by mouth daily with meals IRON POLYSACCH [id number] Mason Link MD gabapentin 100 mg oral capsule (20 sources) Anti-epileptic Agent Start: 07-29-2019 End: 08-20-2019 take 2 capsules by mouth three times daily at mealtime Gabapentin 100 MG capsule Discontinued 200 mg PO 3 TIMES DAILY WITH MEALS 0 July 29, 2019 12:00am August 20, 2019 9:12am Start: 07-29-2019 End: 08-20-2019 take 200 mg by mouth three times daily at mealtime Gabapentin Discontinued 200 MG PO 3 TIMES DAILY WITH MEALS July 29, 2019 12:00am August 20, 2019 9:12am Start: 07-28-2013 End: 10-31-2013 take 1 tablet by mouth once daily NEURONTIN 100 MG CAPS One tablet by mouth daily GABAPENTIN [id number] Mason Link MD Start: 07-28-2013 End: 10-31-2013 take 1 tablet by mouth once daily NEURONTIN 100 MG CAPS One tablet by mouth daily GABAPENTIN [id number] Mason Link MD gemfibrozil 600 mg oral tablet (6 sources) Peroxisome Proliferator Receptor alpha Agonist Start: 11-25-2009 End: 03-19-2012 take 1 tablet by mouth twice daily GEMFIBROZIL 600 MG TABS One tablet by mouth twice daily. GEMFIBROZIL [id number] Bo Ann MA hydroCHLOROthiazide 12.5 mg oral capsule (15 sources) Thiazide Diuretic Start: 11-19-2020 End: 11-25-2020 take 1 capsule by mouth once daily Hydrochlorothiazide 12.5 mg capsule Discontinued 12.5 mg PO DAILY 30 November 19, 2020 12:00am November 25, 2020 2:54pm IMIQUIMOD (11 sources) Start: 05-15-2016 End: 07-24-2016 ALDARA 5 % CREA apply daily at night 5 days per week for 6 weeks IMIQUIMOD [id number] Kamila L López [employer] Start: 05-15-2016 End: 07-24-2016 ALDARA 5 % CREA apply daily at night 5 days per week for 6 weeks IMIQUIMOD [id number] Kamila L López [employer] Start: 05-15-2016 ALDARA 5 % CRE A apply daily at night 5 days per week for 6 weeks IMIQUIMOD [id number] Mason Link MD Start: 07-26-2015 End: 11-15-2015 ALDARA 5 % CREA apply daily at night 5 days per week for 6 weeks IMIQUIMOD [id number] Kamila L López [employer] Start: 07-26-2015 ALDARA 5 % CRE A apply daily at night 5 days per week for 6 weeks IMIQUIMOD [id number] Mason Link MD Start: 07-26-2015 End: 11-15-2015 ALDARA 5 % CREA apply daily at night 5 days per week for 6 weeks IMIQUIMOD [id number] Kamila L López [employer]ER IVERMECTIN (3 sources) Antiparasitic, Pediculicide SOOL ANTRA 1 % CREA IVERMECTIN [id number] Kamila L López [employer] FI[employer] ENGINEER SOOLANTRA 1 % CR EA IVERMECTIN [id number] Kamila L López [employer] ENG[employer] Lactobac Acidoph-Fructooligo s (11 sources) Start: 07-29-2019 End: 11-21-2019 Lactobac Acidoph-Fructooligo s Discontinued 1 EACH PO TWICE A DAY July 29, 2019 1:11pm November 21, 2019 11:37am Start: 07-29-2019 End: 11-21-2019 Lactobac Acidoph-Fructooligo s Discontinued 1 EACH PO TWICE A DAY July 29, 2019 12:00November 21, 2019 11:37am Start: 07-29-2019 End: 11-21-2019 Lactobac Acidoph-Fructooligo s Discontinued 1 EACH PO TWICE A DAY July 28, 2019 11:00pm November 21, 2019 10:37am Lactobac Acidoph-Fructooligo s 1 EACH tablet (4 sources) Start: 07-29-2019 End: 11-21-2019 Lactobac Acidoph-Fructooligo s 1 EACH tablet Discontinued 1 NMA PO TWICE A DAY July 29, 2019 12:00am November 21, 2019 11:37am Start: 07-29-2019 End: 11-21-2019 Lactobac Acidoph-Fructooligo s 1 EACH tablet Discontinued 1 NMA PO TWICE A DAY July 29, 2019 12:00am November 21, 2019 11:37am lactobacillus (18 sources) Start: 03-26-2014 End: 04-03-2014 take 1 tablet by mouth twice daily ACIDOPHILUS PROBIOTIC TABS One tablet by mouth twice daily LACTOBACILLUS [id number] Kamila López LPN Start: 03-26-2014 take 1 tablet by rocio th twice daily ACIDOPHILUS PROBIOTIC TABS One tablet by mouth twice daily LACTOBACILLUS [id number] Mason Link MD Start: 06-10-2013 take 1 tablet by rocio th twice daily ACIDOPHILUS PROBIOTIC TABS One tablet by mouth twice daily LACTOBACILLUS [id number] Mason Link MD Start: 06-10-2013 End: 06-24-2013 take 1 tablet by mouth twice daily ACIDOPHILUS PROBIOTIC TABS One tablet by mouth twice daily LACTOBACILLUS [id number] Kamila López LPN Start: 05-21-2013 End: 06-24-2013 take 1 tablet by mouth twice daily ACIDOPHILUS PROBIOTIC TABS One tablet by mouth twice daily LACTOBACILLUS [id number] Kamila López LPN Start: 05-21-2013 take 1 tablet by rocio th twice daily ACIDOPHILUS PROBIOTIC TABS One tablet by mouth twice daily IHSAN [id number] Mason Link MD lactobacillus acidophilus [id number] unt / pectin 100 mg oral tablet (20 sources) Start: 07-13-2015 End: 06-13-2016 take 1 tablet by mouth twice daily Acidophilus-Pectin, Schley 1 EACH tablet Discontinued 1 NMA PO TWICE A DAY July 13, 2015 12:00am June 13, 2016 1:39pm Start: 07-13-2015 End: 06-13-2016 Acidophilus-Pectin, Schley D iscontinued 1 EACH PO TWICE A DAY July 13, 2015 12:00am June 13, 2016 1:39pm Start: 05-21-2013 End: 06-11-2013 take 1 tablet by mouth twice daily Acidophilus-Pectin, Schley 1 EACH tablet Discontinued 1 NMA PO TWICE A DAY 30 May 21, 2013 12:00am June 11, 2013 1:49pm Start: 05-21-2013 End: 06-11-2013 Acidophilus-Pectin, Schley D iscontinued 1 EACH PO TWICE A DAY May 21, 2013 12:00am June 11, 2013 1:49pm levoFLOXacin 500 mg oral tablet (13 sources) Quinolone Antimicrobial Start: 01-09-2023 End: 11-14-2024 Levofloxacin 500 mg tablet Discontinued 500 mg PO Q48H January 09, 2023 1:00am November 14, 2024 8:38am End: 06-24-2013 take 1 tablet by mouth once daily LEVAQUIN 500 MG TABS 1 by mouth daily LEVOFLOXACIN [id number] Kamila López [employer] lisinopril 10 mg oral tablet (20 sources) Angiotensin Converting Enzyme Inhibitor Start: 01-09-2023 End: 11-12-2024 take 1 tablet by mouth once daily Lisinopril 10 mg tablet Discontinued 10 mg PO DAILY January 09, 2023 1:00am November 12, 2024 5:03pm Start: 01-31-2021 End: 11-22-2021 take 1 tablet by mouth once daily Lisinopril 10 mg tablet Discontinued 10 mg PO DAILY January 31, 2021 2:41pm November 22, 2021 2:42pm Start: 07-26-2020 End: 01-31-2021 take 5 mg by mouth once daily Lisinopril 10 mg tablet Discontinued 5 mg PO DAILY July 26, 2020 8:42pm January 31, 2021 2:25pm Start: 07-26-2020 End: 01-31-2021 take 5 mg by mouth once daily Lisinopril Discontinued 5 MG PO DAILY July 26, 2020 8:42pm January 31, 2021 2:25pm Start: 11-21-2019 End: 07-26-2020 take 1 tablet by mouth once daily Lisinopril 10 mg tablet Discontinued 10 mg PO DAILY November 21, 2019 12:00am July 26, 2020 8:42pm Start: 03-17-2011 End: 06-11-2013 take 1 tablet by mouth once daily Lisinopril 5 MG tablet Discontinued 5 mg PO DAILY May 08, 2013 12:00am June 11, 2013 1:43pm Comment on above: Take 1 tablet by rocio th once daily. Take 10 mg by mouth once daily. meloxicam 15 mg oral tablet (20 sources) Nonsteroidal Anti-inflammatory Drug Start: End: take 1 tablet by mouth once daily Meloxicam (Mobic) 15 mg tablet Discontinued 15 mg PO DAILY November 19, 2020 12:00am January 31, 2021 2:24pm End: 03-20-2012 take 1 tablet by mouth once daily at mealtime MELOXICAM 15 MG TABS One tablet by mouth daily with food MELOXICAM [id number] Alysha Krueger MD MULTIPLE VITAMIN (2 sources) take 1 tablet by rocio th once daily MULTI-VITAMIN TABS One tablet by mouth daily MULTIPLE VITAMIN [id number] Douglas Moncada MD End: 03-19-2012 take 1 tablet by mouth once daily MULTI-VITAMIN TABS One tablet by mouth daily MULTIPLE VITAMIN [id number] Bo Ann MA multivitamin (4 sources) End: 03-19-2012 take 1 tablet by mouth once daily MULTI-VITAMIN TABS One tablet by mouth daily MULTIPLE VITAMIN [id number] Bo Ann MA take 1 tablet by mouth once pastor y MULTI-VITAMIN TABS One tablet by mouth daily MULTIPLE VITAMIN [id number] Douglas Moncada MD niacin 500 mg oral tablet (6 sources) Nicotinic Acid End: 11-25-2009 NIACIN TABS 1500 mg, 1 daily NIACIN TABS [id number] Douglas Moncada MD Mico-3 Fatty Acids (FISH OIL) 500 mg Cap (4 sources) Start: 07-04-2011 take 1 capsule by mouth once daily Mico-3 Fatty Acids (FISH OIL) 500 mg Cap Take by mouth once daily. Takes 600 mg pill daily 0 07/04/2011 Active Comment on above: Take by mouth once daily. Takes 600 mg p ill daily OMEGA-3 FATTY ACIDS CAPS (4 sources) End: 03-20-2012 take 1 tablet by mouth once daily FISH OIL PEARLS CAPS One tablet by mouth daily 600mg daily OMEGA-3 FATTY ACIDS CAPS [id number] Alysha Ely Signs take 1 tablet by mouth once pastor y FISH OIL PEARLS CAPS One tablet by mouth daily 600mg daily OMEGA-3 FATTY ACIDS CAPS [id number] Bo Ann MA OMEGA-3 FATTY ACIDS CAPS (2 sources) End: 03-20-2012 take 1 tablet by mouth once daily FISH OIL PEARLS CAPS One tablet by mouth daily 600mg daily OMEGA-3 FATTY ACIDS CAPS [id number] Alysha J Signs take 1 tablet by mouth once pastor y FISH OIL PEARLS CAPS One tablet by mouth daily 600mg daily OMEGA-3 FATTY ACIDS CAPS [id number] Bo Ann MA ondansetron 4 mg disintegrating oral tablet (15 sources) Serotonin-3 Receptor Antagonist Start: 02-09-2021 End: 11-22-2021 take 1 tablet by mouth every eight hours as needed for nausea Ondansetron 4 MG tablet Discontinued 4 mg PO EVERY 8 HOURS NEEDED as needed for Nausea February 09, 2021 1:00am November 22, 2021 2:43pm oseltamivir 75 mg oral capsule (15 sources) Neuraminidase Inhibitor Start: 04-27-2018 End: 08-14-2018 take 1 capsule by mouth twice daily Oseltamivir 75 MG capsule Discontinued 75 mg PO TWICE A DAY April 27, 2018 1:00am August 14, 2018 1:29pm pitavastatin 1 mg oral tablet (6 sources) HMG-CoA Reductase Inhibitor End: 04-17-2013 take 1 tablet by mouth once daily LIVALO 1 MG TABS One tablet by mouth daily PITAVASTATIN CALCIUM [id number] Jerome Shukla predniSONE 10 mg oral tablet (19 sources) Start: 11-19-2020 End: 11-22-2021 take 1 tablet by mouth once daily as needed Prednisone 10 mg tablet Discontinued 10 mg PO DAILY as needed for RA November 19, 2020 12:00am November 22, 2021 2:43pm Comment on above: Take 10 mg by mouth once daily as needed. promethazine hydrochloride 25 mg oral tablet (20 sources) Phenothiazine Start: 06-27-2019 End: 11-21-2019 take 1 tablet by mouth four times daily as needed for nausea Promethazine 25 MG tablet Discontinued 25 mg PO 4 TIMES DAILY NEEDED as needed for Nausea 30 June 27, 2019 9:56am November 21, 2019 11:36am Start: 05-09-2017 End: 08-14-2018 take 1 tablet by mouth four times daily as needed for nausea Promethazine 25 MG tablet Discontinued 25 mg PO 4 TIMES DAILY NEEDED as needed for NAUSEA/VOMITING 20 03May 09, 2017 3:20pm August 14, 2018 1:29pm Start: 05-21-2013 End: 07-21-2013 take 1 tablet by mouth four times daily as needed for nausea PROMETHAZINE HCL 25 MG TABS One tablet by mouth four times daily as needed for nausea PROMETHAZINE HCL [id number] Mason Link MD rosuvastatin calcium 10 mg oral tablet (20 sources) HMG-CoA Reductase Inhibitor Start: 05-08-2013 End: 08-14-2018 take 4 tablets by mouth at bedtime Rosuvastatin 10 MG tablet Discontinued 40 mg PO AT BEDTIME May 08, 2013 12:00am August 14, 2018 1:29pm Start: 05-08-2013 End: 08-14-2018 take 40 mg by mouth at bedtime Rosuvastatin Discontinu ed 40 MG PO AT BEDTIME May 08, 2013 12:00am August 14, 2018 1:29pm Start: 12-18-2011 End: 03-20-2012 take 0.5 tablet by mouth once daily rosuvastatin (CRESTOR) 20 mg tablet Take 0.5 tablets by mouth once daily. 15 tablet 11 12/18/2011 Active take 1 tablet by rocio th once daily CRESTOR 40 MG TABS One tablet by mouth daily ROSUVASTATIN CALCIUM [id number] Kamila Mercado End: 04-09-2014 take 1 tablet by mouth once daily CRESTOR 10 MG TABS One tablet by mouth daily ROSUVASTATIN CALCIUM [id number] Kamila Mercado End: 04-09-2014 take 1 tablet by mouth once daily CRESTOR 20 MG TABS One tablet by mouth daily ROSUVASTATIN CALCIUM [id number] Kamila Mercado Comment on above: Take 0.5 tablets by mouth once daily. SILVERCEL (6 sources) Start: 06-24-2013 End: 08-12-2013 SILVERCEL apply daily to the left abdominal wall wound SILVERCEL Kamila López LPN Start: 06-24-2013 SILVERCEL appl y daily to the left abdominal wall wound SILVERCEL Mason Likn MD simvastatin 80 mg oral tablet (6 sources) HMG-CoA Reductase Inhibitor End: 03-20-2012 take 1 tablet by mouth once daily SIMVASTATIN 80 MG TABS One tablet by mouth daily SIMVASTATIN [id number] Alysha Krueger MD TAMOXIFEN CITRATE TABS (6 sources) Estrogen Agonist/Antagonis t End: 12-22-2013 TAMOXIFEN CITRATE TABS 1 daily TAMOXIFEN CITRATE TABS [id number] Patty Rondon LPN TAMOXIFEN CITRAT E TABS 1 daily TAMOXIFEN CITRATE TABS [id number] Kamila López LPN traMADol hydrochloride 50 mg oral tablet (15 sources) Opioid Agonist Start: 07-16-2019 End: 11-21-2019 take 1 tablet by mouth three times daily as needed for pain Tramadol 50 mg tablet Discontinued 50 mg PO THREE TIMES A DAY as needed for pain 20 0 July 16, 2019 12:00am November 21, 2019 11:37am 20 tabs (twenty) triamcinolone acetonide 1 mg/ml topical cream (10 sources) Corticosteroid Start: 03-17-2011 End: 04-17-2013 triamcinolone acetonide 0.1 % TOPICAL cream Apply 1 application to affected area three times daily as needed. 45 g 1 03/17/2011 Active Comment on above: Apply 1 application to affected area three times daily as needed. VALACYCLOVIR HCL (12 sources) Herpesvirus Nucleoside Analog DNA Polymerase Inhibitor, Herpes Simplex Virus Nucleoside Analog DNA Polymerase Inhibitor, Herpes Zoster Virus Nucleoside Analog DNA Polymerase Inhibitor End: 03-20-2012 take 1 tablet by mouth twice daily VALACYCLOVIR HCL 500 MG TABS One tablet by mouth twice daily for 3 days VALACYCLOVIR HCL [id number] Alysha Krueger MD End: 04-01-2012 take 1 tablet by mouth once daily VALTREX 1 GM TABS One tablet by mouth daily VALACYCLOVIR HCL [id number] Bo Ann MA End: 04-01-2012 take 1 tablet by mouth once daily VALTREX 1 GM TABS One tablet by mouth daily VALACYCLOVIR HCL [id number] Bo Ann MA take 1 tablet by rocio th once daily VALTREX 1 GM TABS One tablet by mouth daily VALACYCLOVIR HCL [id number] Bo Ann MA CHOLECALCIFEROL (3 sources) take 1 tablet by rocio th once daily VITAMIN D 1000 UNIT TABS One tablet by mouth daily CHOLECALCIFEROL [id number] Helga Styles take 1 tablet by mouth once pastor y VITAMIN D 1000 UNIT TABS One tablet by mouth daily CHOLECALCIFEROL [id number] Helga Styles Problems Active Problems Problem Classification Problem Date Documented Date Episodic/Chronic Asthma (6 sources) Asthma; Translations: [Unspecified asthma, uncomplicated] Resolved: 0 11-25-2009 Chronic Cancer of breast (20 sources) Carcinoma in situ of breast; 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] Onset: 4 04-30-2013 Chronic Cataract (17 sources) Cataract; Translations: [Unspecified cataract] Onset: 8 05-27-2007 Chronic Complications of surgical procedures or medical care (20 sources) Postoperative fever; Translations: [Postprocedural fever] Onset: 3 06-29-2019 Episodic Disorders of lipid metabolism (20 sources) Hypercholesterolemia; Translations: [Pure hypercholesterolemia] Onset: 7 11-25-2009 Chronic Essential hypertension (20 sources) Hypertensive disorder; Translations: [Essential hypertension] Onset: 8 Resolved: 0 11-25-2009 Chronic Fracture of upper limb (15 sources) Fracture of upper end of humerus; Translations: [Unspecified fracture of upper end of left humerus, initial encounter for closed fracture] 02-17-2021 Episodic Intracranial injury (15 sources) Injury of head; Translations: [Unspecified intracranial injury with loss of consciousness of unspecified duration, initial encounter] 02-17-2021 Episodic Neoplasms of unspecified nature or uncertain behavior (16 sources) Neoplasm of skin; Translations: [Neoplasm of unspecified behavior of bone, soft tissue, and skin] Onset: 4 07-13-2015 Episodic Nonmalignant breast conditions (17 sources) Fibrocystic disease of breast; Translations: [Diffuse cystic mastopathy of unspecified breast] Onset: 8 02-06-2008 Chronic Nutritional deficiencies (17 sources) Vitamin D deficiency; Translations: [Vitamin D deficiency, unspecified] Onset: 8 02-22-2007 Chronic Open wounds of head; neck; and trunk (20 sources) Late effect of open wound of head, neck AND/OR trunk; Translations: [Late effect of open wound of head, neck, and trunk] Onset: 5 07-09-2015 Episodic Osteoarthritis (16 sources) Osteoarthritis; Translations: [Degenerative joint disease involving multiple joints] Resolved: 0 11-25-2009 Chronic Osteoporosis (18 sources) Senile osteoporosis; Translations: [Age-related osteoporosis without current pathological fracture] Onset: 7 02-22-2007 Chronic Other and ill-defined heart disease (15 sources) Diastolic dysfunction; Translations: [Other ill-defined heart diseases] 08-30-2018 Chronic Other and ill-defined heart disease (4 sources) Other ill-defined heart diseases; Translations: [Heart disease, unspecified] Onset: 5 Chronic Other bone disease and musculoskeletal deformities (1 source) 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, left shoulder; Translations: [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, left shoulder (HCC)] Onset: 3 Chronic Other inflammatory condition of skin (3 sources) Rosacea; Translations: [Rosacea] Onset: 5 10-18-2014 Chronic Other inflammatory condition of skin (15 sources) Erythema of skin; Translations: [Erythematous condition, unspecified] 07-06-2019 Episodic Other injuries and conditions due to external causes (15 sources) Contusion of clavicular area; Translations: [Other injury of unspecified body region, initial encounter] 11-22-2021 Episodic Other injuries and conditions due to external causes (15 sources) Sequela of disorder; Translations: [Other specified effects of external causes, sequela] 08-13-2018 Episodic Comment on above: T75.89xSlate effect painful left TRAM flap abdominal wall scar wound with chronic stitch abscesses Other lower respiratory disease (2 sources) Multiple nodules of lung; Translations: [Other nonspecific abnormal finding of lung field] 12-03-2023 Episodic Other non-traumatic joint disorders (9 sources) Pain in right knee; Translations: [Right knee pain] 01-09-2023 Episodic Other screening for suspected conditions (not mental disorders or infectious disease) (1 source) CT of chest abnormal; Translations: [Abnormal findings on diagnostic imaging of other specified body structures] 12-04-2023 Chronic Other skin disorders (1 source) Mass of chest wall; Translations: [Localized swelling, mass and lump, trunk] 11-12-2023 Episodic Residual codes; unclassified (1 source) Acquired absence of breast; Translations: [Acquired absence of unspecified breast and nipple] Episodic Sprains and strains (15 sources) Sprain of acromioclavicular ligament; Translations: [Sprain of left acromioclavicular joint, initial encounter] 11-22-2021 Episodic Systemic lupus erythematosus and connective tissue disorders (17 sources) Disorder of connective tissue; Translations: [Systemic involvement of connective tissue, unspecified] Onset: 7 12-13-2006 Chronic Thyroid disorders (10 sources) Hypothyroidism; Translations: [Hypothyroidism, unspecified] Onset: 3 08-31-2022 Chronic Unclassified (20 sources) Encounter for screening for malignant neoplasm of colon; Translations: [Mammography abnormal] Onset: 7 12-26-2013 Episodic Unclassified (2 sources) Screening mammography ; Translations: [Encounter for screening mammogram for malignant neoplasm of breast] Onset: 6 04-07-2015 Unclassified (3 sources) Aftercare ; Translations: [Encounter for other specified surgical aftercare] Onset: 4 05-25-2013 Unclassified (3 sources) Other complications of procedures, not elsewhere classified; Translations: [Other complications of procedures, not elsewhere classified] Onset: 4 06-27-2013 Unclassified (1 source) Cough, unspecified; Translations: [Cough, unspecified] Onset: 4 Past or Other Problems Problem Classification Problem Date Documented Date Episodic/Chronic Abdominal pain (3 sources) Generalized abdominal pain; Translations: [Generalized abdominal pain] Onset: 4 07-21-2013 Episodic Allergic reactions (6 sources) Other skin changes due to chronic exposure to nonionizing radiation; Translations: [Other skin changes due to chronic exposure to nonionizing radiation] Onset: 5 03-27-2014 Episodic Cancer of breast (15 sources) History of malignant neoplasm of breast; Translations: [Personal history of malignant neoplasm of breast] Onset: 4 09-12-2013 Episodic Deficiency and other anemia (3 sources) Anemia; Translations: [Anemia, unspecified] Onset: 4 05-30-2013 Episodic Headache; including migraine (17 sources) Headache; Translations: [Headache] Onset: 7 12-17-2006 Episodic Malaise and fatigue (4 sources) Malaise and fatigue; Translations: [Other fatigue] Onset: 4 12-26-2013 Episodic Nonmalignant breast conditions (9 sources) Microcalcifications of the breast; Translations: [Disproportion of reconstructed breast] Onset: 4 Resolved: 4 04-30-2013 Episodic Other connective tissue disease (6 sources) Pain in limb; Translations: [Pain in unspecified limb] Onset: 1 Resolved: 2 11-08-2011 Episodic Other diseases of kidney and ureters (9 sources) Kidney disease; Translations: [Disorder of kidney and ureter, unspecified] Onset: 3 08-31-2022 Episodic Other injuries and conditions due to external causes (3 sources) Injury, unspecified; Translations: [Injury, unspecified] Onset: 4 08-12-2013 Episodic Other lower respiratory disease (2 sources) Other nonspecific abnormal finding of lung field; Translations: [Lung nodules] Onset: 5 Episodic Other nervous system disorders (5 sources) Hyperesthesia; Translations: [Dysesthesia] Onset: 5 01-13-2015 Episodic Other nervous system disorders (1 source) Dysesthesia; Translations: [Other disturbances of skin sensation] Onset: 6 07-13-2015 Episodic Other nervous system disorders (17 sources) Abnormal gait; Translations: [Unspecified abnormalities of gait and mobility] Onset: 1 05-17-2010 Episodic Other skin disorders (20 sources) Actinic keratosis; Translations: [Eruption] Onset: 3 06-09-2016 Episodic Other skin disorders (1 source) Scar conditions and fibrosis of skin; Translations: [Scar conditions and fibrosis of skin] Onset: 4 07-17-2013 Episodic Other skin disorders (1 source) Other seborrheic keratosis; Translations: [Other seborrheic keratosis] Onset: 5 03-27-2014 Episodic Other skin disorders (1 source) Eruption; Translations: [Rash and other nonspecific skin eruption] Onset: 3 03-20-2012 Episodic Other upper respiratory infections (3 sources) Sinusitis; Translations: [Chronic sinusitis, unspecified] Onset: 1 03-09-2010 Episodic Pleurisy; pneumothorax; pulmonary collapse (3 sources) Atelectasis; Translations: [Atelectasis] Onset: 4 05-30-2013 Episodic Residual codes; unclassified (1 source) Family history of cancer of colon; Translations: [Family history of malignant neoplasm of digestive organs] 08-26-2013 Episodic Residual codes; unclassified (1 source) Family history of malignant neoplasm of skin; Translations: [Family history of malignant neoplasm of other organs or systems] Onset: 7 06-09-2016 Episodic Residual codes; unclassified (1 source) Acquired absence of unspecified breast and nipple; Translations: [Acquired absence of unspecified breast and nipple] Onset: 4 05-06-2013 Episodic Unclassified (9 sources) FH: Diabetes mellitus; Translations: [Family history of cancer of colon] Onset: 4 08-26-2013 Episodic Unclassified (2 sources) Physical examination; Translations: [Encounter for general adult medical examination without abnormal findings] Onset: 0 Resolved: 0 11-25-2009 Viral infection (17 sources) Herpes zoster; Translations: [Zoster without complications] Onset: 7 05-27-2007 Episodic Results Test Name Value Interpretation Reference Range Facility Cardiology Visit Reporton Cardiology Visit Report [facility] [address] [place], [place] [id number] OFFICE VISIT Date of Service: 11/14/24 MR#: [id number] Acct: [id number] Name: MADDIOSN RIVERA Rep #: [id number] : 1945 Provider: NAVJOT richter Age/Sex: 78/F Location: [facility] [place] Status: Signed HPI HPI History of Present Illness Details: This is a 78-year-old lady who presents to the office today for a cardiovascular visit. She was last seen in our office in November of 2021. She presents today due to labile blood pressures. Her PCP started her on Losartan 25mg daily. She has a history of previous breast carcinoma and hyperlipidemia who was referred here for an abnormal EKG. From a cardiac standpoint, the patient is doing well. She denies any palpitations, chest pain, pressure or heaviness. She denies SOB, Orthopnea, and PND. She does not have bleeding issues; no blood in urine, stool, or nosebleeds. She denies any decrease in energy level, myalgias, or claudication. She does not have edema, or sudden weight gain. She does acknowledge occasional lightheadedness with elevated or low blood pressures. She denies dizziness, syncopal or near syncopal episodes, and headaches. 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 Required: No Is patient in pain?: No Allergies clindamycin Allergy (Intermediate, Verified 11/14/24 08:56) HIVES, BLISTERS, ITCHING adhesive tape Allergy (Verified 11/14/24 08:56) Rash chlorhexidine Allergy (Verified 11/14/24 08:56) Itching erythromycin base Allergy (Verified 11/14/24 08:56) Hives gemfibrozil Allergy (Verified 11/14/24 08:56) Other hydromorphone (From Dilaudid) Allergy (Verified 11/14/24 08:56) Nausea/Vom/Diarrhea Iodinated Contrast Media Allergy (Verified 11/14/24 08:56) Rash meloxicam (From Mobic) Allergy (Verified 11/14/24 08:56) Nausea morphine Allergy (Verified 11/14/24 08:56) Nausea/Vom/Diarrhea nitrofurantoin (From Macrodantin) Allergy (Verified 11/14/24 08:56) Vomiting Penicillins Allergy (Verified 11/14/24 08:56) Hives Sulfa (Sulfonamide Antibiotics) Allergy (Verified 11/14/24 08:56) PT UNSURE OF REACTION vaccine adjuvant system, AS01B liposomal (From Shingrix (PF)) Allergy (Verified 11/14/24 08:56) Other varicella-zoster virus glycoprotein E, recombinant (From Shingrix (PF)) Allergy (Verified 11/14/24 08:56) Other fentanyl Adverse Reaction (Verified 11/14/24 08:56) Other latex Adverse Reaction (Verified 11/14/24 08:56) Rash prednisone Adverse Reaction (Verified 11/14/24 08:56) Other Thbqfhw-MMF-PoQ Reductase Inhibitor (Htnyrld-Doe-Skx Reductase Inhibitor) Adverse Reaction (Verified 11/14/24 08:56) myalgias zinc Adverse Reaction (Verified 11/14/24 08:56) Upset Stomach Medications ???Medication ???Instructions ???Recorded ???Confirmed ???Type celecoxib 200 mg capsule 200 mg PO DAILY 11/22/21 11/14/24 History evolocumab 420 mg/3.5 mL 420 mg subcut .1xmonth cholesterol 11/22/21 11/14/24 History subcutaneous wearable injector Please send 3 month supply (Repatha Pushtronex) losartan 25 mg tablet 25 mg PO QHS 11/12/24 11/14/24 His tory levothyroxine 50 mcg capsule 50 mcg PO QDAY 11/14/24 11/14/24 H istory levothyroxine 50 mcg tablet 75 mcg PO DAILY 11/14/24 11/14/24 History (Synthroid) milnacipran 25 mg tablet (Savella) 25 mg PO ONCE 11/14/24 11/14/24 History Ejection fraction %: 65 Have you fallen in the past year?: No [facility] Medical History Osteoarthritis of right knee Right knee pain Sprain of left acromioclavicular joint Contusion of clavicle Seroma of breast Acquired absence of bilateral breasts and nipples Acquired absence of right breast and nipple Cancer phobia Breast pain, left Left breast mass Erythema of skin Deformity of reconstructed breast Acquired absence of left breast and nipple Diastolic dysfunction Hypothyroidism Essential (primary) hypertension Open wound of lateral abdominal wall 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 Normal [facility] Anion gap in Serum or Plasma Ordered By: Jesus Peters on 10-06-2024 Anion gap [Moles/Vol] 13 mmol/L 5-[address] [facility] BUN/creatinine ratioOrdered By: Jesus Peters on 10-06-2024 Urea nitrogen/Creatinine [Mass ratio] 23.2 mg/mg High 10-20 [facility] Bilirubin, totalOrdered By: Jesus Peters on 10-06-2024 Bilirubin [Mass/Vol] 0.37 mg/dL 0.00-1.30 [facility] Calculated very low density lipoprotein (VLDL) cholesterol measurementOrdered By: Jesus Peters on 10-06-2024 Calculated very low density lipoprotein (VLDL) cholesterol measurement 34 mg/dL 5-40 [facility] Carbon dioxide, total [Moles /volume] in Central venous bloodOrdered By: Jesus Peters on 10-06-2024 CO2 [Moles/Vol] 22.8 mmol/L 21.0-32.0 [facility] Chloride assayOrdered By: Denver Peters on 10-06-2024 Chloride [Moles/Vol] 105 mmol/L 98-108 [facility] Comprehensive Metabolic Prof ilon 10-06-2024 Albumin [Mass/Vol] 4.1 g/dL Normal 3.4-4.8 [facility] Comment on above: Order Comment: Order Date: 10/02/24Order Info: [id number] - CMPOrder Info: [id number] - LIPIDOrder Info: [id number] - O8POhlcu Info: [id number] - TSHOrder Info: [id number] - T4F Performed By: #### L 100.0100, L500.2500, L501.46293, L501.9520, L506.0400 #### [facility] [address] [place], [address] Albumin/Globulin [Mass ratio] 1.3 {ratio} Normal 0.9-2.4 [facility] Comment on above: Order Comment: Order Date: 10/02/24Order Info: [id number] - CMPOrder Info: [id number] - LIPIDOrder Info: [id number] - J7MOwqwz Info: [id number] - TSHOrder Info: [id number] - T4F Performed By: #### L 100.0100, L500.2500, L501.47124, L501.9520, L506.0400 #### [facility] [address] [place], [address] ALK PHOS 107 U/L High 35-104 [facility] Comment on above: Order Comment: Order Date: 10/02/24Order Info: [id number] - CMPOrder Info: [id number] - LIPIDOrder Info: [id number] - P0SPmuil Info: [id number] - TSHOrder Info: [id number] - T4F Performed By: #### L 100.0100, L500.2500, L501.06269, L501.9520, L506.0400 #### [facility] [address] [place], [address] ALT [Catalytic activity/Vol] 16 U/L Normal <=34 [facility] Comment on above: Order Comment: Order Date: 10/02/24Order Info: [id number] - CMPOrder Info: [id number] - LIPIDOrder Info: [id number] - D6JQarqt Info: [id number] - TSHOrder Info: [id number] - T4F Performed By: #### L 100.0100, L500.2500, L501.70953, L501.9520, L506.0400 #### [facility] [address] [place], [address] AST [Catalytic activity/Vol] 22 U/L Normal <=31 [facility] Comment on above: Order Comment: Order Date: 10/02/24Order Info: [id number] - CMPOrder Info: [id number] - LIPIDOrder Info: [id number] - W7KFolxo Info: [id number] - TSHOrder Info: [id number] - T4F Performed By: #### L 100.0100, L500.2500, L501.69517, L501.9520, L506.0400 #### [facility] [address] [place], [address] Bilirubin [Mass/Vol] 0.37 mg/dL Normal 0.00-1.30 [facility] Comment on above: Order Comment: Order Date: 10/02/24Order Info: [id number] - CMPOrder Info: [id number] - LIPIDOrder Info: [id number] - H4ADwfjt Info: [id number] - TSHOrder Info: [id number] - T4F Performed By: #### L 100.0100, L500.2500, L501.39441, L501.9520, L506.0400 #### [facility] [address] [place], [address] BUN/CRE 23.2 RATIO High 10-20 [facility] Comment on above: Order Comment: Order Date: 10/02/24Order Info: [id number] - CMPOrder Info: [id number] - LIPIDOrder Info: [id number] - A7NCgtmj Info: [id number] - TSHOrder Info: [id number] - T4F Performed By: #### L 100.0100, L500.2500, L501.79043, L501.9520, L506.0400 #### [facility] [address] [place], [address] Calcium [Mass/Vol] 9.6 mg/dL Normal 7.6-11.0 [facility] Comment on above: Order Comment: Order Date: 10/02/24Order Info: [id number] - CMPOrder Info: [id number] - LIPIDOrder Info: [id number] - J3JRvept Info: [id number] - TSHOrder Info: [id number] - T4F Performed By: #### L 100.0100, L500.2500, L501.02185, L501.9520, L506.0400 #### [facility] [address] [place], [address] Chloride [Moles/Vol] 105 mmol/L Normal 98-108 [facility] Comment on above: Order Comment: Order Date: 10/02/24Order Info: [id number] - CMPOrder Info: [id number] - LIPIDOrder Info: [id number] - K6CGscfk Info: [id number] - TSHOrder Info: [id number] - T4F Performed By: #### L 100.0100, L500.2500, L501.39701, L501.9520, L506.0400 #### [facility] [address] [place], [address] CO2 [Moles/Vol] 22.8 mmol/L Normal 21.0-32.0 [facility] Comment on above: Order Comment: Order Date: 10/02/24Order Info: [id number] - CMPOrder Info: [id number] - LIPIDOrder Info: [id number] - Q3RHvfud Info: [id number] - TSHOrder Info: [id number] - T4F Performed By: #### L 100.0100, L500.2500, L501.83237, L501.9520, L506.0400 #### [facility] [address] [place], [address] Creatinine [Mass/Vol] 0.92 mg/dL Normal 0.70-1.[address] [facility] Comment on above: Order Comment: Order Date: 10/02/24Order Info: [id number] - CMPOrder Info: [id number] - LIPIDOrder Info: [id number] - W6CKevlb Info: [id number] - TSHOrder Info: [id number] - T4F Performed By: #### L 100.0100, L500.2500, L501.35984, L501.9520, L506.0400 #### [facility] [address] [place], [address] GAP 13 Normal 5-15 [facility] Comment on above: Order Comment: Order Date: 10/02/24Order Info: [id number] - CMPOrder Info: [id number] - LIPIDOrder Info: [id number] - Y7KNdksr Info: [id number] - TSHOrder Info: [id number] - T4F Performed By: #### L 100.0100, L500.2500, L501.66143, L501.9520, L506.0400 #### [facility] [address] [place], [address] GFR/1.73 sq M.predicted among non-blacks MDRD (S/P/Bld) [Vol rate/Area] 64 mL/min/{1.73_m2} Normal >60 [facility] Comment on above: Order Comment: Order Date: 10/02/24Order Info: [id number] - CMPOrder Info: [id number] - LIPIDOrder Info: 1-0 - B9TTnhhp Info: [id number] - TSHOrder Info: [id number] - T4F Result Comment: mL/m in/1.73m2 CKD-EPI Creatinine Equation (2020) Performed By: #### L 100.0100, L500.2500, L501.76470, L501.9520, L506.0400 #### [facility] [address] [place], [address] Globulin (S) [Mass/Vol] 3.2 g/dL Normal 2.2-4.2 [facility] Comment on above: Order Comment: Order Date: 10/02/24Order Info: [id number] - CMPOrder Info: [id number] - LIPIDOrder Info: [id number] - D2UAcgkx Info: [id number] - TSHOrder Info: [id number] - T4F Performed By: #### L 100.0100, L500.2500, L501.91611, L501.9520, L506.0400 #### [facility] [address] [place], [address] Glucose [Mass/Vol] 93 mg/dL Normal 70-99 [facility] Comment on above: Order Comment: Order Date: 10/02/24Order Info: 86-1 - CMPOrder Info: [id number] - LIPIDOrder Info: [id number] - T7DNykvx Info: [id number] - TSHOrder Info: [id number] - T4F Performed By: #### L 100.0100, L500.2500, L501.41640, L501.9520, L506.0400 #### [facility] [address] [place], [address] Potassium [Moles/Vol] 4.0 mmol/L Normal 3.3-5.[address] [facility] Comment on above: Order Comment: Order Date: 10/02/24Order Info: 86-1 - CMPOrder Info: [id number] - LIPIDOrder Info: [id number] - M1OOpqxe Info: [id number] - TSHOrder Info: [id number] - T4F Performed By: #### L 100.0100, L500.2500, L501.74346, L501.9520, L506.0400 #### [facility] [address] [place], [address] Sodium [Moles/Vol] 141 mmol/L Normal 133-145 [facility] Comment on above: Order Comment: Order Date: 10/02/24Order Info: [id number] - CMPOrder Info: [id number] - LIPIDOrder Info: [id number] - B5ZNmfwv Info: [id number] - TSHOrder Info: [id number] - T4F Performed By: #### L 100.0100, L500.2500, L501.78520, L501.9520, L506.0400 #### [facility] [address] [place], [address] T PROT 7.3 g/dL Normal 5.9-8.4 [facility] Comment on above: Order Comment: Order Date: 10/02/24Order Info: [id number] - CMPOrder Info: [id number] - LIPIDOrder Info: [id number] - P9GGuwbu Info: [id number] - TSHOrder Info: [id number] - T4F Performed By: #### L 100.0100, L500.2500, L501.94106, L501.9520, L506.0400 #### [facility] [address] [place], [address] Urea nitrogen [Mass/Vol] 21 mg/dL High 4-19 [facility] Comment on above: Order Comment: Order Date: 10/02/24Order Info: [id number] - CMPOrder Info: [id number] - LIPIDOrder Info: [id number] - K9RPjlqq Info: [id number] - TSHOrder Info: [id number] - T4F Performed By: #### L 100.0100, L500.2500, L501.34294, L501.9520, L506.0400 #### [facility] [address] [place], [address] Free T3on 10-06-2024 Free T3 [Mass/Vol] 2.9 pg/mL Normal 2.18-3.98 [facility] Comment on above: Order Comment: Order Date: 10/02/24Order Info: [id number] - CMPOrder Info: [id number] - LIPIDOrder Info: [id number] - T6NIqtvn Info: [id number] - TSHOrder Info: [id number] - T4F Performed By: #### L 100.0100, L500.2500, L501.95305, L501.9520, L506.0400 #### [facility] [address] [place], [address] Free Q2Enmiirx By: Jesus watts on 10-06-2024 Free T3 [Mass/Vol] 2.9 pg/mL 2.18-3.98 [facility] Glomerular filtration rate ( GFR) estimation/1.73 sq m using serum, plasma, or whole bOrdered By: Jesus Peters on 10-06-2024 GFR/1.73 sq M.predicted among non-blacks MDRD (S/P/Bld) [Vol rate/Area] 64 mL/min/{1.73_m2} >60 [facility] Comment on above: mL/min/1.73m2 CKD-EP I Creatinine Equation (2020) LDL calc ser/plasOrdered By: Jesus Peters on 10-06-2024 Cholesterol in LDL [Mass/Vol] 133 mg/dL [facility] Comment on above: Dvftnbzvkm=021-402 m g/dL & Higher Oich=462 mg/dL or greaterFriedwald Equation for LDL-C Laboratory - Chemistry and C hemistry - challengeOrdered By: Jesus Peters on 10-06-2024 AST [Catalytic activity/Vol] 22 U/L <32 [facility] Lipid Profileon 10-06-2024 CHOL:HDL 4.45 Normal [facility] Comment on above: Order Comment: Order Date: 10/02/24Order Info: [id number] - CMPOrder Info: [id number] - LIPIDOrder Info: [id number] - V4QIprqb Info: [id number] - TSHOrder Info: [id number] - T4F Performed By: #### L 100.0100, L500.2500, L501.58500, L501.9520, L506.0400 #### [facility] [address] [place], [place], [address] Cholesterol [Mass/Vol] 215 mg/dL High <=200 [facility] Comment on above: Order Comment: Order Date: 10/02/24Order Info: [id number] - CMPOrder Info: [id number] - LIPIDOrder Info: [id number] - G9QXorgj Info: [id number] - TSHOrder Info: [id number] - T4F Result Comment: Chol esterol level, Desirable <200 mg/dL Borderline high cholesterol 200-239 mg/dL High cholesterol >=240 mg/dL Recommendations of the NCEP Adult Treatment Panel for the following risk-cutoff thresholds for the [place] population. Performed By: #### L 100.0100, L500.2500, L501.84789, L501.9520, L506.0400 #### [facility] [address] [place], [address] Cholesterol in HDL [Mass/Vol] 48 mg/dL Normal [facility] Comment on above: Order Comment: Order Date: 10/02/24Order Info: [id number] - CMPOrder Info: [id number] - LIPIDOrder Info: [id number] - I6EVjoas Info: 3 - TSHOrder Info: [id number] T4F Result Comment: Micki onal Cholesterol Education Program (NCEP) guidelines: <40 mg/dL: Low HDL-cholesterol (major risk factor for CHD) >= 60 mg/dL: High HDL-cholesterol (negative risk factor for CHD) HDL-cholesterol is affected by a number of factors, e.g. smoking, exercise, hormones, sex and age. Performed By: #### L 100.0100, L500.2500, L501.88166, L501.9520, L506.0400 #### [facility] [address] [place], [address] Cholesterol in LDL [Mass/Vol] 133 mg/dL Normal [facility] Comment on above: Order Comment: Order Date: 10/02/24Order Info: [id number] - CMPOrder Info: [id number] - LIPIDOrder Info: [id number] - A0INvdrm Info: [id number] - TSHOrder Info: [id number] - T4F Result Comment: Bord fmzevr=946-128 mg/dL Higher Skfk=218 mg/dL or greater Friedwald Equation for LDL-C Performed By: #### L 100.0100, L500.2500, L501.58511, L501.9520, L506.0400 #### [facility] [address] [place], [address] Cholesterol in VLDL [Mass/Vol] 34 mg/dL Normal 5-40 [facility] Comment on above: Order Comment: Order Date: 10/02/24Order Info: [id number] - CMPOrder Info: [id number] - LIPIDOrder Info: [id number] - W5EJqbqs Info: [id number] - TSHOrder Info: [id number] - T4F Performed By: #### L 100.0100, L500.2500, L501.62167, L501.9520, L506.0400 #### [facility] [address] [place], [place], [address] Triglyceride [Mass/Vol] 169 mg/dL Normal [facility] Comment on above: Order Comment: Order Date: 10/02/24Order Info: [id number] - CMPOrder Info: [id number] - LIPIDOrder Info: [id number] - B7MMdyno Info: [id number] - TSHOrder Info: 7 - T4F Result Comment: The drugs N-Acetylcysteine and Metamizole may falsely depress this assay. Normal range: <150 mg/dL Borderline High: 150-199 mg/dL High: 200-499 mg/dL Very High: >500 mg/dL Performed By: #### L 100.0100, L500.2500, L501.43858, L501.9520, L506.0400 #### [facility] [address] [place], [place], [address] Potassium measurement (mass/ volume)Ordered By: Jesus Peters on 10-06-2024 Potassium (Unsp spec) [Mass/Vol] 4.0 mmol/L 3.3-5.1 [facility] Screening total cholesterol/ high density lipoprotein (HDL) cholesterol ratioOrdered By: Jesus Peters on 10-06-2024 Cholesterol.total/Cho lesterol in HDL [Mass ratio] 4.45 {ratio} [facility] Serum creatinine measurement (mass/volume)Ordered By: Jesus Peters on 10-06-2024 Creatinine [Mass/Vol] 0.92 mg/dL 0.70-1.[address] [facility] Serum globulin measurementOr dered By: Jesus Peters on 10-06-2024 Globulin (S) [Mass/Vol] 3.2 g/dL 2.2-4.2 [facility] Serum glucose measurement (m ass/volume)Ordered By: Jesus Peters on 10-06-2024 Glucose [Mass/Vol] 93 mg/dL 70-99 [facility] Serum or plasma alanine owens otransferase (ALT) measurementOrdered By: Jesus Peters on 10-06-2024 ALT [Catalytic activity/Vol] 16 U/L <35 [facility] Serum or plasma albumin iris urement (mass/volume)Ordered By: Jesus Peters on 10-06-2024 Albumin [Mass/Vol] 4.1 g/dL 3.4-4.8 [facility] Serum or plasma albumin/glob ulin mass ratioOrdered By: Jesus Peters on 10-06-2024 Albumin/Globulin [Mass ratio] 1.3 {ratio} 0.9-2.4 [facility] Serum or plasma alkaline delio sphatase measurementOrdered By: Jesus Peters on 10-06-2024 ALP [Catalytic activity/Vol] 107 U/L High 35-104 [facility] Serum or plasma calcium iris urement (mass/volume)Ordered By: Jesus Peters on 10-06-2024 Calcium [Mass/Vol] 9.6 mg/dL 7.6-11.0 [facility] Serum or plasma cholesterol in HDL measurement (mass/volume)Ordered By: Jesus Peters on 10-06-2024 Cholesterol in HDL [Mass/Vol] 48 mg/dL >40 [facility] Comment on above: National Cholesterol Education Program (NCEP) guidelines:<40 mg/dL: Low HDL-cholesterol (major risk factor for CHD)>= 60 mg/dL: High HDL-cholesterol (negative risk factor for CHD)HDL-cholesterol is affected by a number of factors, e.g. smoking, exercise, hormones, sex and age. Serum or plasma cholesterol measurement (mass/volume)Ordered By: Jesus Peters on 10-06-2024 Cholesterol [Mass/Vol] 215 mg/dL High <201 [facility] Comment on above: Cholesterol level, D esirable <200 mg/dLBorderline high cholesterol 200-239 mg/dLHigh cholesterol >=240 mg/dLRecommendations of the NCEP Adult Treatment Panel for the following risk-cutoff thresholds for the [place] population. Serum or plasma urea nitroge n measurement (mass/volume)Ordered By: Jesus Peters on 10-06-2024 Urea nitrogen [Mass/Vol] 21 mg/dL High 4-19 [facility] Sodium levelOrdered By: Jesus Peters on 10-06-2024 Sodium [Moles/Vol] 141 mmol/L 133-145 [facility] T4 Free Directon 10-06-2024 T4 FREE DIRECT 1.40 ng/dL Normal 0.76-1.46 [facility] Comment on above: Order Comment: Order Date: 10/02/24Order Info: [id number] - CMPOrder Info: [id number] - LIPIDOrder Info: [id number] - M9WIyyhr Info: [id number] - TSHOrder Info: [id number] - T4F Performed By: #### L 100.0100, L500.2500, L501.17682, L501.9520, L506.0400 #### [facility] [address] [facility] [place], [place], [address] T4 freeOrdered By: Jesus watts on 10-06-2024 Free T4 [Mass/Vol] 1.40 ng/dL 0.76-1.46 [facility] TSH DL <= 0.005 mIU/L QnOrde red By: Jesus Peters on 10-06-2024 TSH Qn 0.442 uIU/mL 0.300-4.200 [facility] Thyroid Stim Hormone (TSH)on 10-06-2024 TSH 0.442 uIU/mL Normal 0.300-4.200 [facility] Comment on above: Order Comment: Order Date: 10/02/24Order Info: [id number] - CMPOrder Info: [id number] - LIPIDOrder Info: [id number] - T0MGdprf Info: [id number] - TSHOrder Info: [id number] - T4F Performed By: #### L 100.0100, L500.2500, L501.70524, L501.9520, L506.0400 #### [facility] [address] [place], [address] Total proteinOrdered By: Ramonita Peters on 10-06-2024 Protein [Mass/Vol] 7.3 g/dL 5.9-8.4 [facility] Triglycerides measurementOrd ered By: Jesus Peters on 10-06-2024 Triglyceride [Mass/Vol] 169 mg/dL <199 [facility] Comment on above: The drugs N-Acetylcy steine and Metamizole may falsely depress this assay. Normal range: <150 mg/dLBorderline High: 150-199 mg/dLHigh: 200-499 mg/dLVery High: >500 mg/dL Anion gap in Serum or Plasma Ordered By: Jesus Peters on 06-05-2024 Anion gap [Moles/Vol] 12 mmol/L 07-[address] [facility] BUN/creatinine ratioOrdered By: Jesus Peters on 06-05-2024 Urea nitrogen/Creatinine [Mass ratio] 17.5 mg/mg 12-08 [facility] Basic Metabolic Profile (BMP )on 06-05-2024 BUN/CRE 17.5 RATIO Normal 12-08 [facility] Comment on above: Performed By: #### L 100.0100, L500.2500, L501.78163, L501.9520, L506.0400 #### [facility] [address] [place], [address] Calcium [Mass/Vol] 10.0 mg/dL Normal 7.6-11.0 [facility] Comment on above: Performed By: #### L 100.0100, L500.2500, L501.67542, L501.9520, L506.0400 #### [facility] [address] [place], [address] Chloride [Moles/Vol] 103 mmol/L Normal 98-108 [facility] Comment on above: Performed By: #### L 100.0100, L500.2500, L501.20982, L501.9520, L506.0400 #### [facility] [address] [place], [address] CO2 [Moles/Vol] 25.9 mmol/L Normal 21.0-32.0 [facility] Comment on above: Performed By: #### L 100.0100, L500.2500, L501.59415, L501.9520, L506.0400 #### [facility] [address] [place], [address] Creatinine [Mass/Vol] 0.94 mg/dL Normal 0.70-1.[address] [facility] Comment on above: Performed By: #### L 100.0100, L500.2500, L501.54896, L501.9520, L506.0400 #### [facility] [address] [place], [address] GAP 12 Normal 5-15 [facility] Comment on above: Performed By: #### L 100.0100, L500.2500, L501.87916, L501.9520, L506.0400 #### [facility] [address] [place], [address] GFR/1.73 sq M.predicted among non-blacks MDRD (S/P/Bld) [Vol rate/Area] 62 mL/min/{1.73_m2} Normal >60 [facility] Comment on above: Result Comment: mL/m in/1.73m2 CKD-EPI Creatinine Equation (2020) Performed By: #### L 100.0100, L500.2500, L501.28712, L501.9520, L506.0400 #### [facility] [address] [place], [address] Glucose [Mass/Vol] 96 mg/dL Normal 70-99 [facility] Comment on above: Performed By: #### L 100.0100, L500.2500, L501.67459, L501.9520, L506.0400 #### [facility] [address] [place], [address] Potassium [Moles/Vol] 4.3 mmol/L Normal 3.3-5.[address] [facility] Comment on above: Performed By: #### L 100.0100, L500.2500, L501.45536, L501.9520, L506.0400 #### [facility] [address] [place], [address] Sodium [Moles/Vol] 141 mmol/L Normal 133-145 [facility] Comment on above: Performed By: #### L 100.0100, L500.2500, L501.91381, L501.9520, L506.0400 #### [facility] [address] [place], [address] Urea nitrogen [Mass/Vol] 17 mg/dL Normal 4-19 [facility] Comment on above: Performed By: #### L 100.0100, L500.2500, L501.15199, L501.9520, L506.0400 #### [facility] [address] [place], [address] Calculated very low density lipoprotein (VLDL) cholesterol measurementOrdered By: Jesus Peters on 06-05-2024 VLDL Cholesterol 34 mg/dL 5-40 [facility] Carbon dioxide, total [Moles /volume] in Central venous bloodOrdered By: Jesus Peters on 06-05-2024 CO2 [Moles/Vol] 25.9 mmol/L 21.0-32.0 [facility] Chloride assayOrdered By: Denver Peters on 06-05-2024 Chloride [Moles/Vol] 103 mmol/L 98-108 [facility] Free T3on 06-05-2024 Free T3 [Mass/Vol] 3.0 pg/mL Normal 2.18-3.98 [facility] Comment on above: Performed By: #### L 100.0100, L500.2500, L501.22043, L501.9520, L506.0400 #### [facility] [address] [place], [place], [id number] Free C6Odkuuyz By: Jesus watts on 06-05-2024 Free Triiodothyronine (T3) pg/dL 3.0 pg/mL 2.18-3.98 [facility] GFR/1.73 sq M.predicted david g non-blacks MDRD (S/P/Bld) [Vol rate/Area]Ordered By: Jesus Peters on 06-05-2024 Estimated GFR (MDRD) Non-Af Amer 62 >60 [facility] Comment on above: mL/min/1.73m2 CKD-EP I Creatinine Equation (2020) LDL calc ser/plasOrdered By: Jesus Peters on 06-05-2024 LDL Cholesterol, Calculated 141 mg/dL [facility] Comment on above: Bywavnsbdd=674-481 m g/dL & Higher Cztq=278 mg/dL or greater Lipid Profileon 06-05-2024 CHOL:HDL 4.68 Normal [facility] Comment on above: Performed By: #### L 100.0100, L500.2500, L501.09951, L501.9520, L506.0400 #### [facility] [address] [place], [place], [id number] [phone] Cholesterol [Mass/Vol] 223 mg/dL High <=200 [facility] Comment on above: Result Comment: Chol esterol level, Desirable <200 mg/dL Borderline high cholesterol 200-239 mg/dL High cholesterol >=240 mg/dL Recommendations of the NCEP Adult Treatment Panel for the following risk-cutoff thresholds for the [place] population. Performed By: #### L 100.0100, L500.2500, L501.20989, L501.9520, L506.0400 #### [facility] [address] [place], [place], [address] Cholesterol in HDL [Mass/Vol] 48 mg/dL Normal [facility] Comment on above: Result Comment: Micki onal Cholesterol Education Program (NCEP) guidelines: <40 mg/dL: Low HDL-cholesterol (major risk factor for CHD) >= 60 mg/dL: High HDL-cholesterol (negative risk factor for CHD) HDL-cholesterol is affected by a number of factors, e.g. smoking, exercise, hormones, sex and age. Performed By: #### L 100.0100, L500.2500, L501.76009, L501.9520, L506.0400 #### [facility] [address] [place], [address] Cholesterol in LDL [Mass/Vol] 141 mg/dL Normal [facility] Comment on above: Result Comment: Bord xtgpql=392-089 mg/dL Higher Ihjm=097 mg/dL or greater Performed By: #### L 100.0100, L500.2500, L501.40669, L501.9520, L506.0400 #### [facility] [address] [place], [address] Cholesterol in VLDL [Mass/Vol] 34 mg/dL Normal 5-40 [facility] Comment on above: Performed By: #### L 100.0100, L500.2500, L501.25133, L501.9520, L506.0400 #### [facility] [address] [place], [address] Triglyceride [Mass/Vol] 172 mg/dL Normal [facility] Comment on above: Result Comment: The drugs N-Acetylcysteine and Metamizole may falsely depress this assay. Normal range: <150 mg/dL Borderline High: 150-199 mg/dL High: 200-499 mg/dL Very High: >500 mg/dL Performed By: #### L 100.0100, L500.2500, L501.94970, L501.9520, L506.0400 #### [facility] [address] [place], [address] Potassium (Unsp spec) [Mass/ Vol]Ordered By: Jesus Peters on 06-05-2024 Potassium [Moles/Vol] 4.3 mmol/L 3.3-5.[address] [facility] Screening total cholesterol/ high density lipoprotein (HDL) cholesterol ratioOrdered By: Jesus Peters on 06-05-2024 Cholesterol.total/Cho lesterol in HDL [Mass ratio] 4.68 {ratio} [facility] Serum creatinine measurement (mass/volume)Ordered By: Jesus Peters on 06-05-2024 Creatinine [Mass/Vol] 0.94 mg/dL 0.70-1.[address] [facility] Serum glucose measurement (m ass/volume)Ordered By: Jesus Peters on 06-05-2024 Glucose [Mass/Vol] 96 mg/dL 70-99 [facility] Serum or plasma calcium iris urement (mass/volume)Ordered By: Jesus Peters on 06-05-2024 Calcium [Mass/Vol] 10.0 mg/dL 7.6-11.0 [facility] Serum or plasma cholesterol in HDL measurement (mass/volume)Ordered By: Jesus Peters on 06-05-2024 Cholesterol in HDL [Mass/Vol] 48 mg/dL >40 [facility] Comment on above: National Cholesterol Education Program (NCEP) guidelines:<40 mg/dL: Low HDL-cholesterol (major risk factor for CHD)>= 60 mg/dL: High HDL-cholesterol (negative risk factor for CHD)HDL-cholesterol is affected by a number of factors, e.g. smoking, exercise, hormones, sex and age. Serum or plasma cholesterol measurement (mass/volume)Ordered By: Jesus Peters on 06-05-2024 Cholesterol [Mass/Vol] 223 mg/dL High <201 [facility] Comment on above: Cholesterol level, D esirable <200 mg/dLBorderline high cholesterol 200-239 mg/dLHigh cholesterol >=240 mg/dLRecommendations of the NCEP Adult Treatment Panel for the following risk-cutoff thresholds for the [place] population. Serum or plasma urea nitroge n measurement (mass/volume)Ordered By: Jesus Peters on 06-05-2024 Urea nitrogen [Mass/Vol] 17 mg/dL 4-19 [facility] Sodium levelOrdered By: Jesus Peters on 06-05-2024 Sodium [Moles/Vol] 141 mmol/L 133-145 [facility] T4 Free Directon 06-05-2024 T4 FREE DIRECT 1.50 ng/dL High 0.76-1.46 [facility] Comment on above: Performed By: #### L 100.0100, L500.2500, L501.88114, L501.9520, L506.0400 #### [facility] [address] [place], [place], [id number] T4 freeOrdered By: Jesus watts on 06-05-2024 Free T4 [Mass/Vol] 1.50 ng/dL High 0.76-1.46 [facility] TSH DL <= 0.005 mIU/L QnOrde red By: Jesus Peters on 06-05-2024 Thyroid Stimulating Hormone (TSH) 0.508 uIU/mL 0.300-4.200 [facility] Thyroid Stim Hormone (TSH)on 06-05-2024 TSH 0.508 uIU/mL Normal 0.300-4.200 [facility] Comment on above: Performed By: #### L 100.0100, L500.2500, L501.67337, L501.9520, L506.0400 #### [facility] [address] [place], [place], [id number] Triglycerides measurementOrd ered By: Jesus Peters on 06-05-2024 Triglyceride [Mass/Vol] 172 mg/dL <199 [facility] Comment on above: The drugs N-Acetylcy steine and Metamizole may falsely depress this assay. Normal range: <150 mg/dLBorderline High: 150-199 mg/dLHigh: 200-499 mg/dLVery High: >500 mg/dL Myoglobin, Serumon 5 Myoglobin, Ser 37 ng/mL Normal 25-58 [facility] Comment on above: Result Comment: Perf ormed at: - [facility] [address] [id number] Chick Sexer: Tre Calloway PhD, Phone: [phone] Performed By: #### L 501.2534, L3375.6944 #### [facility] [address] [facility] [place], [place], [id number] CPK Total, Creatine Kinaseon 05-20-2024 CPK TOTAL 109 U/L Normal 24-195 [facility] Comment on above: Performed By: #### L 501.3620, L3600.5100 #### [facility] [address] [place], [address] Serum myoglobin measurementO rdered By: Erwin Wiley on 05-20-2024 Myoglobin [Mass/Vol] 37 ng/mL 25-58 [facility] Comment on above: Performed at: [place] [facility] [id number] [place], [place] [id number] Director: Tre Calloway PhD, Phone: [phone] Serum or plasma creatine kin ase activityOrdered By: Erwin Wiley on 05-20-2024 CK [Catalytic activity/Vol] 109 U/L 24-195 [facility] Angiotensin Convert Enzymeon 04-08-2024 ANGIOT-CONV.ENZ 15 U/L Normal 14-82 [facility] Comment on above: Result Comment: Perf ormed at: [place] [facility] [place] [address] [place], [place] [id number] Chick Sexer: Tre Calloway PhD, Phone: [phone] Performed By: #### L 100.0100, L500.2500, L501.58164, L501.9520, L506.0400 #### [facility] [address] [place], [address] Quantiferon TB-Gold+on 04-08 QFT MITOGEN TATUM > 10.00 Normal . [facility] Comment on above: Performed By: #### L 100.0100, L500.2500, L501.93005, L501.9520, L506.0400 #### [facility] [address] [place], [address] QFT NIL VALUE 0.03 IU/mL Normal . [facility] Comment on above: Performed By: #### L 100.0100, L500.2500, L501.13538, L501.9520, L506.0400 #### [facility] [address] [place], [address] QFT TB GOLD+ Comment Normal . [facility] Comment on above: Result Comment: Myles tiFERON-TB Gold Plus is a qualitative indirect test for M tuberculosis infection (including disease) and is intended for use in conjunction with risk assessment, radiography, and other medical and diagnostic evaluations. The QuantiFERON-TB Gold Plus result is determined by subtracting the Nil value from either TB antigen (Ag) value. The Mitogen tube serves as a control for the test. Performed By: #### L 100.0100, L500.2500, L501.69778, L501.9520, L506.0400 #### [facility] [address] [place], [address] QFT TB POS CRIT Negative Normal Negative [facility] Comment on above: Result Comment: No r esponse to M tuberculosis antigens detected. Infection with M tuberculosis is unlikely, but high risk individuals should be considered for additional testing (ATS/IDSA/CDC Clinical Practice Guidelines, 2017). The reference range is an Antigen minus Nil result of <0.35 IU/mL. The specimen received for QuantiFERON testing was incubated by the ordering institution. Specific procedures outlined in our Directory of Services and in the package insert for the QuantiFERON Gold (In Tube) test must be followed to enable for proper stimulation of cells for the production of interferon gamma. Chemiluminescence immunoassay methodology Performed By: #### L 100.0100, L500.2500, L501.97630, L501.9520, L506.0400 #### [facility] [address] [place], [address] QFT TB1+ AG TATUM 0.04 IU/mL Normal . [facility] Comment on above: Performed By: #### L 100.0100, L500.2500, L501.65497, L501.9520, L506.0400 #### [facility] [address] [place], [address] QFT TB2+ AG TATUM 0.03 IU/mL Normal . [facility] Comment on above: Performed By: #### L 100.0100, L500.2500, L501.13151, L501.9520, L506.0400 #### [facility] [address] [place], [place], [id number] C-reactive protein measureme nt by high sensitivity methodOrdered By: Erwin Wiley on 04-03-2024 C-Reactive Protein Extended Range 13.70 mg/L High 0.0-3.0 [facility] Comment on above: C-Reactive Protein ( CRP) provides useful information for thediagnosis, therapy and monitoring of inflammatory processesand associated diseases. For the evaluation of Relative Riskfor Cardiovascular Disease, a High Sensitivity CRP (HSCRP)should be ordered. CRPon 04-03-2024 C-REACTIVE PROT 13.70 mg/L High 0.0-3.0 [facility] Comment on above: Result Comment: C-Re active Protein (CRP) provides useful information for the diagnosis, therapy and monitoring of inflammatory processes and associated diseases. For the evaluation of Relative Risk for Cardiovascular Disease, a High Sensitivity CRP (HSCRP) should be ordered. Performed By: #### L 100.0100, L500.2500, L501.61662, L501.9520, L506.0400 #### [facility] [address] [place], [address] Erythrocyte Sed Rateon 04-03 SED RATE 53 mm/hr High 0-30 [facility] Comment on above: Performed By: #### L 100.0100, L500.2500, L501.04495, L501.9520, L506.0400 #### [facility] [address] [place], [address] Erythrocyte sedimentation ra teOrdered By: Erwin Wiley on 04-03-2024 ESR (Bld) [Velocity] 53 mm/h High 0-30 [facility] M. tuberculosis tuberculin s yuan IFN-g Ql (Bld)Ordered By: Erwin Wiley on 04-03-2024 TB Test (QFT) Antigen 1 0.04 IU/mL . [facility] Quantiferon-TB Gold Plus rafael tOrdered By: Erwin Wiley on 04-03-2024 TB Test (QFT) Comment . [facility] Comment on above: QuantiFERON-TB Gold Plus is a qualitative indirect test forM tuberculosis infection (including disease) and isintended for use in conjunction with risk assessment,radiography, and other medical and diagnostic evaluations.The QuantiFERON-TB Gold Plus result is determined bysubtracting the Nil value from either TB antigen (Ag)value. The Mitogen tube serves as a control for the test. TB Test (QFT) Antigen 2 0.03 IU/mL . [facility] TB Test (QFT) Mitogen > 10.00 IU/mL . [facility] TB Test (QFT) Nil 0.03 IU/mL . [facility] TB Test (QFT) Positive Criteria Negative Negative [facility] Comment on above: No response to M tub erculosis antigens detected.Infection with M tuberculosis is unlikely, but high riskindividuals should be considered for additional testing(ATS/IDSA/CDC Clinical Practice Guidelines, 2017). Thereference range is an Antigen minus Nil result of <0.35IU/mL.The specimen received for QuantiFERON testing was incubatedby the ordering institution. Specific procedures outlinedin our Directory of Services and in the package insert forthe QuantiFERON Gold (In Tube) test must be followed toenable for proper stimulation of cells for the productionof interferon gamma. Chemiluminescence immunoassaymethodology Serum or plasma angiotensin converting enzyme measurement (enzymatic activity/volume)Ordered By: Erwin Wiley on 04-03-2024 Angiotensin converting enzyme [Catalytic activity/Vol] 15 U/L 14-82 [facility] Comment on above: Performed at: [address] [id number] Director: Tre Calloway PhD, Phone: [phone] Basic Metabolic Profile (BMP )on 03-20-2024 BUN/CRE 19.0 RATIO Normal 10-20 [facility] Comment on above: Order Comment: Order Date: 01/10/24Order Info: 3016-3 - TSH Performed By: #### L 100.0100, L500.2500, L501.79389, L501.9520, L506.0400 #### [facility] [address] [place], [address] CA,Total 9.7 mg/dL Normal 8.5-10.1 [facility] Comment on above: Order Comment: Order Date: 01/10/24Order Info: 3016-3 - TSH Performed By: #### L 100.0100, L500.2500, L501.43308, L501.9520, L506.0400 #### [facility] [address] [place], [address] Chloride [Moles/Vol] 105 mmol/L Normal 98-107 [facility] Comment on above: Order Comment: Order Date: 01/10/24Order Info: 3015-3 - TSH Performed By: #### L 100.0100, L500.2500, L501.36979, L501.9520, L506.0400 #### [facility] [address] [place], [address] CO2 [Moles/Vol] 25.0 mmol/L Normal 21.0-32.0 [facility] Comment on above: Order Comment: Order Date: 01/10/24Order Info: [id number] - TSH Performed By: #### L 100.0100, L500.2500, L501.38420, L501.9520, L506.0400 #### [facility] [address] [place], [address] Creatinine [Mass/Vol] 0.89 mg/dL Normal 0.55-1.[address] [facility] Comment on above: Order Comment: Order Date: 01/10/24Order Info: 3015-3 - TSH Result Comment: The validity of the calculated GFR GFRAA in patients over 70 years has not been determined. Clinical correlation is essential. Performed By: #### L 100.0100, L500.2500, L501.63520, L501.9520, L506.0400 #### [facility] [address] [place], [address] EST GFR - AA 78 mL/min Normal >60 [facility] Comment on above: Order Comment: Order Date: 01/10/24Order Info: 3015-3 - TSH Result Comment: Afri can [place] GFR Calc Performed By: #### L 100.0100, L500.2500, L501.38554, L501.9520, L506.0400 #### [facility] [address] [place], [address] GAP 8 Normal 5-15 [facility] Comment on above: Order Comment: Order Date: 01/10/24Order Info: 3015-3 - TSH Performed By: #### L 100.0100, L500.2500, L501.11149, L501.9520, L506.0400 #### [facility] [address] [place], [address] GFR/1.73 sq M.predicted among non-blacks MDRD (S/P/Bld) [Vol rate/Area] 65 mL/min/{1.73_m2} Normal >60 [facility] Comment on above: Order Comment: Order Date: 01/10/24Order Info: 3015-3 - TSH Result Comment: Non- GFR Calc Performed By: #### L 100.0100, L500.2500, L501.15508, L501.9520, L506.0400 #### [facility] [address] [place], [address] Glucose [Mass/Vol] 85 mg/dL Normal 74-106 [facility] Comment on above: Order Comment: Order Date: 01/10/24Order Info: 3015-3 - TSH Performed By: #### L 100.0100, L500.2500, L501.00462, L501.9520, L506.0400 #### [facility] [address] [place], [address] Potassium [Moles/Vol] 4.1 mmol/L Normal 3.5-5.[address] [facility] Comment on above: Order Comment: Order Date: 01/10/24Order Info: 3016-3 - TSH Performed By: #### L 100.0100, L500.2500, L501.96143, L501.9520, L506.0400 #### [facility] [address] [place], [address] Sodium [Moles/Vol] 138 mmol/L Normal 136-145 [facility] Comment on above: Order Comment: Order Date: 01/10/24Order Info: 3016-3 - TSH Performed By: #### L 100.0100, L500.2500, L501.02063, L501.9520, L506.0400 #### [facility] [address] [place], [address] Urea nitrogen [Mass/Vol] 17 mg/dL Normal 7-18 [facility] Comment on above: Order Comment: Order Date: 01/10/24Order Info: 3016-3 - TSH Performed By: #### L 100.0100, L500.2500, L501.74555, L501.9520, L506.0400 #### [facility] [address] [place], [address] Blood urea nitrogen (BUN)/cr eatinine ratioOrdered By: Jesus Peters on 03-20-2024 Urea nitrogen/Creatinine [Mass ratio] 19.0 mg/mg 10-20 [facility] Carbon dioxide measurementOr dered By: Jesus Peters on 03-20-2024 CO2 [Moles/Vol] 25.0 mmol/L 21.0-32.0 [facility] Chloride measurementOrdered By: Jesus Peters on 03-20-2024 Chloride [Moles/Vol] 105 mmol/L 98-107 [facility] Direct serum free thyroxine (FT4) measurementOrdered By: Jesus Peters on 03-20-2024 Free T4 [Mass/Vol] 1.55 ng/dL High 0.76-1.46 [facility] Erythrocyte Sed Rateon 03-20 SED RATE 24 mm/hr Normal 0-30 [facility] Comment on above: Performed By: #### L 100.0100, L500.2500, L501.74947, L501.9520, L506.0400 #### [facility] [address] [place], [place], [address] Erythrocyte sedimentation ra teOrdered By: Jesus Peters on 03-20-2024 ESR (Bld) [Velocity] 24 mm/h 0-30 [facility] Estimated glomerular filtrat ion rate (GFR) AmericanOrdered By: Jesus Peters on 03-20-2024 Estimated GFR (MDRD) Amer 78 mL/min >60 [facility] Comment on above: GFR Calc Free T3on 03-20-2024 Free T3 [Mass/Vol] 2.5 pg/mL Normal 2.18-3.98 [facility] Comment on above: Order Comment: Order Date: 01/10/24Order Info: 3016-3 - TSH Performed By: #### L 100.0100, L500.2500, L501.84177, L501.9520, L506.0400 #### [facility] [address] [place], [place], [address] Free R1Nlgtnxr By: Jesus watts on 03-20-2024 Free Triiodothyronine (T3) pg/dL 2.5 pg/mL 2.18-3.98 [facility] Glomerular filtration rate ( GFR) estimationOrdered By: Jesus Peters on 03-20-2024 Estimated GFR (MDRD) Non-Af Amer 65 mL/min >60 [facility] Comment on above: Non- GFR Calc Glucose measurementOrdered B y: Jesus Peters on 03-20-2024 Glucose [Mass/Vol] 85 mg/dL 74-106 [facility] Potassium measurementOrdered By: Jesus Peters on 03-20-2024 Potassium [Moles/Vol] 4.1 mmol/L 3.5-5.[address] [facility] Serum anion gap measurementO rdered By: Jesus Peters on 03-20-2024 Anion gap [Moles/Vol] 8 mmol/L 5-[address] [facility] Serum or plasma calcium iris urement (mass/volume)Ordered By: Jesus Peters on 03-20-2024 Calcium [Mass/Vol] 9.7 mg/dL 8.5-10.1 [facility] Serum or plasma creatinine m easurement (mass/volume)Ordered By: Jesus Peters on 03-20-2024 Creatinine [Mass/Vol] 0.89 mg/dL 0.55-1.[address] [facility] Comment on above: The validity of the calculated GFR & GFRAA in patients over 70 years has not been determined. Clinical correlation is essential. Serum or plasma urea nitroge n measurement (mass/volume)Ordered By: Jesus Peters on 03-20-2024 Urea nitrogen [Mass/Vol] 17 mg/dL 7-18 [facility] Sodium levelOrdered By: Jesus Peters on 03-20-2024 Sodium [Moles/Vol] 138 mmol/L 136-145 [facility] T4 Free Directon 03-20-2024 T4 FREE DIRECT 1.55 ng/dL High 0.76-1.46 [facility] Comment on above: Order Comment: Order Date: 01/10/24Order Info: [id number] - TSH Performed By: #### L 100.0100, L500.2500, L501.18621, L501.9520, L506.0400 #### [facility] [address] [place], [place], [address] TSH QnOrdered By: Jesus vaughan on 03-20-2024 Thyroid Stimulating Hormone (TSH) 0.145 uIU/mL Low 0.358-3.740 [facility] Thyroid Stim Hormone (TSH)on 03-20-2024 TSH 0.145 uIU/mL Low 0.358-3.740 [facility] Comment on above: Order Comment: Order Date: 01/10/24 Order Info: [id number] - TSH Performed By: #### L 501.9520 #### [facility] [address] [place] [place], [address] Dayanara 03-11-2024 [facility] Telephone (GENSWS) ----- MADDISON RIVERA ([id number]) 1945 F Date Time Provider Department 03/11/24 KAMILA MERCADO [employer] During your visit today, we recorded the following information about you: Kamila Mercado MD 03/11/2024 4:34 PM Signed Spoke to Maddison dunn by name and number. Told her results of chest CT. I have rec'd repeat CT scan in 6-12 months as per radiological recommendations. She states that she has noted a dry cough for years. I have recommended that she return to her PCP for possible workup. Patient acknowledges above. Allergies As of Date: 03/11/2024 Noted Allergy Reaction CLINDAMYCIN 07/20/2015 2 - Rash 9 - Itching 14 - Other: See Comments Comments: High Fever BETADINE (POVIDONE-IODINE) 09/29/2019 2 - Rash CHLORHEXIDINE 05/06/2021 9 - Itching DILAUDID COUGH 07/28/2022 11 - Vomiting Comments: N/V ERYTHROMYCIN BASE 05/06/2021 4 - Hives FENTANYL 05/06/2021 14 - Other: See Comments Comments: VERY HARD TO WAKE UP GEMFIBROZIL 01/07/2010 8 - GI Upset 11 - Vomiting 14 - Other: See Comments Comments: Nausea, MUSCLE ACHES HYDROMORPHONE 11/08/2011 6 - Diarrhea 11 - Vomiting 14 - Other: See Comments Comments: Nausea IODINATED CONTRAST MEDIA 06/25/2019 2 - Rash IODINE 07/28/2022 14 - Other: See Comments Comments: BLISTERS LATEX 05/06/2021 2 - Rash MACRODANTIN (NITROFURANTOIN MACRO*07/03/2006 8 - GI Upset MOBIC (MELOXICAM) 11/06/2011 14 - Other: See Comments Comments: Nausea MORPHINE 07/03/2006 6 - Diarrhea 11 - Vomiting Comments: SEE'S SPIDERS NITROFURANTOIN 05/06/2021 11 - Vomiting PENICILLINS 07/03/2006 4 - Hives PREDNISONE 07/03/2006 14 - Other: See Comments Comments: PH SYCOTIC [id number] REDUCTASE INHIBIT*05/06/2021 14 - Other: See Comments Comments: Myalgias SULFA (SULFONAMIDE ANTIBIOTICS) 07/03/2006 14 - Other: See Comments Comments: Unknown - occurred during childhood ZINC 05/06/2021 8 - GI Upset ZOSTAVAX (ZOSTER VACCINE LIVE (PF*06/10/2007 11 - Vomiting 14 - Other: See Comments Comments: Pt developed a rash on 06-10-07 within ten minutes of the injection. It involved the arms, chest and legs. It was intensely pruritic. HTN AND SOB Date Reviewed: 11/12/2023 Reviewed by: Raquel Wadsworth LPN - Fully Assessed Reason for Visit: Results [95] Prescriptions as of 03/11/2024 - ubidecarenone Q-10 (CO Q-10) 10 mg cap Take by mouth once daily. - antiox #8/om3/dha/epa/lut/zeax (PRESERVISION AREDS 2, OMEGA-3, ORAL) Take by mouth once daily. - celecoxib (CELEBREX) 200 mg capsule Take 200 mg by mouth every morning. 0700 AM - evolocumab (REPATHA PUSHTRONEX) 420 mg/3.5 mL Inject 140 mg subcutaneously every 2 weeks. TAKES FIRST OF THE MONTH - levothyroxine (SYNTHROID) 50 mcg tablet Take 50 mcg by mouth daily before breakfast. 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] 08/06/2006 Pure hypercholesterolemia [E78.00] 08/06/2006 UNSP ABNORMAL MAMMOGRAM [R92.8] 10/25/2006 HEADACHE [R51] 12/13/2006 DIFF CONNECT TIS DIS NOS [M35.9] 12/13/2006 HERPES ZOSTER NOS [B02.9] 12/13/2006 VITAMIN D DEFICIENCY NOS [E55.9] 02/22/2007 Unspecified essential hypertension [I10] 02/22/2007 CATARACT NOS [H26.9] 05/27/2007 DIFFUS CYSTIC MASTOPATHY [N60.19] 02/06/2008 Pain in limb [M79.609] 05/17/2010 11/08/2011 Abnormality of gait [R26.9] 05/17/2010 Delayed emergence from anesthesia [T88.59XA] 08/31/2022 Renal disease [N28.9] 08/31/2022 Hypothyroidism [E03.9] 08/31/2022 Screening for colon cancer [Z12.11] 12/15/2022 Encounter Status:Closed by KAMILA MERCADO on 03/11/24 [facility] Telephone (CTI) ----- MADDISON RIVERA ([id number]) 1945 F Date Time Provider Department 03/11/24 LONNIE BARBA CTI During your visit today, we recorded the following information about you: Brandi Carbajal 03/11/2024 4:40 PM Signed Patient is requesting disc and reports of 03/04/24 CT chest and 11/25/24 CT chest. 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 OK to leave a detailed VM on cell phone [phone]. 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 [facility] Pt knows Allergies As of Date: 03/11/2024 Noted Allergy Reaction CLINDAMYCIN 07/20/2015 2 - Rash 9 - Itching 14 - Other: See Comments Comments: High Fever BETADINE (POVIDONE-IODINE) 09/29/2019 2 - Rash CHLORHEXIDINE 05/06/2021 9 - Itching DILAUDID COUGH 07/28/2022 11 - Vomiting Comments: N/V ERYTHROMYCIN BASE 05/06/2021 4 - Hives FENTANYL 05/06/2021 14 - Other: See Comments Comments: VERY HARD TO WAKE UP GEMFIBROZIL 01/07/2010 8 - GI Upset 11 - Vomiting 14 - Other: See Comments Comments: Nausea, MUSCLE ACHES HYDROMORPHONE 11/08/2011 6 - Diarrhea 11 - Vomiting 14 - Other: See Comments Comments: Nausea IODINATED CONTRAST MEDIA 06/25/2019 2 - Rash IODINE 07/28/2022 14 - Other: See Comments Comments: BLISTERS LATEX 05/06/2021 2 - Rash MACRODANTIN (NITROFURANTOIN MACRO*07/03/2006 8 - GI Upset MOBIC (MELOXICAM) 11/06/2011 14 - Other: See Comments Comments: Nausea MORPHINE 07/03/2006 6 - Diarrhea 11 - Vomiting Comments: SEE'S SPIDERS NITROFURANTOIN 05/06/2021 11 - Vomiting PENICILLINS 07/03/2006 4 - Hives PREDNISONE 07/03/2006 14 - Other: See Comments Comments: PH SYCOTIC [id number] REDUCTASE INHIBIT*05/06/2021 14 - Other: See Comments Comments: Myalgias SULFA (SULFONAMIDE ANTIBIOTICS) 07/03/2006 14 - Other: See Comments Comments: Unknown - occurred during childhood ZINC 05/06/2021 8 - GI Upset ZOSTAVAX (ZOSTER VACCINE LIVE (PF*06/10/2007 11 - Vomiting 14 - Other: See Comments Comments: Pt developed a rash on 06-10-07 within ten minutes of the injection. It involved the arms, chest and legs. It was intensely pruritic. HTN AND SOB Date Reviewed: 11/12/2023 Reviewed by: Raquel Wadsworth LPN - Fully Assessed Reason for Visit: Release Of Medical Records [2017] Cmt: Imaging Prescriptions as of 05/08/2024 - ubidecarenone Q-10 (CO Q-10) 10 mg cap Take by mouth once daily. - antiox #8/om3/dha/epa/lut/zeax (PRESERVISION AREDS 2, OMEGA-3, ORAL) Take by mouth once daily. - celecoxib (CELEBREX) 200 mg capsule Take 200 mg by mouth every morning. 0700 AM - evolocumab (REPATHA PUSHTRONEX) 420 mg/3.5 mL Inject 140 mg subcutaneously every 2 weeks. TAKES FIRST OF THE MONTH - levothyroxine (SYNTHROID) 50 mcg tablet Take 50 mcg by mouth daily before breakfast. 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] 08/06/2006 Pure hypercholesterolemia [E78.00] 08/06/2006 UNSP ABNORMAL MAMMOGRAM [R92.8] 10/25/2006 HEADACHE [R51] 12/13/2006 DIFF CONNECT TIS DIS NOS [M35.9] 12/13/2006 HERPES ZOSTER NOS [B02.9] 12/13/2006 VITAMIN D DEFICIENCY NOS [E55.9] 02/22/2007 Unspecified essential hypertension [I10] 02/22/2007 CATARACT NOS [H26.9] 05/27/2007 DIFFUS CYSTIC MASTOPATHY [N60.19] 02/06/2008 Pain in limb [M79.609] 05/17/2010 11/08/2011 Abnormality of gait [R26.9] 05/17/2010 Delayed emergence from anesthesia [T88.59XA] 08/31/2022 Renal disease [N28.9] 08/31/2022 Hypothyroidism [E03.9] 08/31/2022 Screening for colon cancer [Z12.11] 12/15/2022 Encounter Status:Closed by BRANDI CARBAJAL on 05/08/24 Normal [facility] CT CHEST WO IVCONon 03-04-19 CT CHEST WO IVCON * * *Final Report* * * DATE OF EXAM: Mar 04 2024 8:21AM [facility] 0541 - CT CHEST WO IVCON / PROCEDURE REASON: Lung nodules * * * * Physician Interpretation * * * * EXAMINATION: CHEST CT WITHOUT CONTRAST CLINICAL HISTORY: Lung nodules Technique: Spiral CT acquisition of the chest from the thoracic inlet to the upper abdomen without contrast. MQ: [id number] CT Radiation dose: Integrated Dose-length product (DLP) for this visit = 201 mGy*cm CT Dose Reduction Employed: Automated exposure control(AEC) and iterative recon Comparison: 11/26/2023 RESULT: Limitations: None. Lines, tubes, and devices: None. Lung parenchyma and airways: The previously described small lung nodules are unchanged (images 92, 98, 113, 124, and 127). The largest of these is the 6 mm diameter LEFT lower lobe nodule demonstrated on image 124. No consolidation. Stable basilar scarring or atelectasis. The central airways are patent. Pleural space: No pleural effusion. No pleural thickening. Lower neck, lymph nodes, and mediastinum: The imaged thyroid gland is normal. No lymphadenopathy in the supraclavicular, axillary, mediastinal, or hilar regions. Heart, pericardium, and thoracic vessels: The thoracic aorta and main pulmonary artery are normal in caliber. The cardiac chambers are normal in size. No coronary artery atherosclerotic calcifications are noted, although the study is not optimized for coronary assessment. No pericardial effusion or thickening. Bones and soft tissues: Status post LEFT shoulder arthroplasty. No destructive bone lesion. Status post bilateral mastectomy. Upper abdomen: Stable low-attenuation density LEFT hepatic lobe lateral segment consistent with a cyst, 1.4 cm x 1.0 cm. Localizer images: Unremarkable. IMPRESSION: No significant change. The small lung nodules appear stable. Would suggest follow-up study in 6-12 months. ACTIONABLE RESULT: FOLLOW-UP Acuity: Actionable Findings: Thoracic-Lung nodules Routing code: [email or web address] Recommendation: CT Chest WO IVCON Time Frame: 6-12 months COMMUNICATION: Results will be communicated with the ordering provider via [employer] staff message or phone message by [facility] within 2 business days of report finalization. --END OF FINDING-- 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BILL Transcribe Date/Time: Mar 06 2024 10:32A Dictated by : KAYDEN AKERS MD This examination was interpreted and the report reviewed and electronically signed by: KAYDEN AKERS MD on Mar 06 2024 10:44AM EST [id number] ACTIONABLE Invalid Interpretation Code [facility] Basic Metabolic Profile (BMP )on 01-10-2024 BUN/CRE 22.3 RATIO High - [facility] Comment on above: Performed By: #### L 100.0100, L500.2500, L501.49008, L501.9520, L506.0400 #### [facility] [address] [place], [address] CA,Total 9.8 mg/dL Normal 8.5-10.1 [facility] Comment on above: Performed By: #### L 100.0100, L500.2500, L501.79825, L501.9520, L506.0400 #### [facility] [address] [place], [address] Chloride [Moles/Vol] 105 mmol/L Normal 98-107 [facility] Comment on above: Performed By: #### L 100.0100, L500.2500, L501.40252, L501.9520, L506.0400 #### [facility] [address] [place], [address] CO2 [Moles/Vol] 25.0 mmol/L Normal 21.0-32.0 [facility] Comment on above: Performed By: #### L 100.0100, L500.2500, L501.59890, L501.9520, L506.0400 #### [facility] [address] [place], [address] Creatinine [Mass/Vol] 1.12 mg/dL High 0.55-1.[address] [facility] Comment on above: Result Comment: The validity of the calculated GFR GFRAA in patients over 70 years has not been determined. Clinical correlation is essential. Performed By: #### L 100.0100, L500.2500, L501.44314, L501.9520, L506.0400 #### [facility] [address] [place], [address] EST GFR - AA 61 mL/min Normal >60 [facility] Comment on above: Result Comment: Afri can [place] GFR Calc Performed By: #### L 100.0100, L500.2500, L501.71405, L501.9520, L506.0400 #### [facility] [address] [place], [address] GAP 6 Normal 5-15 [facility] Comment on above: Performed By: #### L 100.0100, L500.2500, L501.17705, L501.9520, L506.0400 #### [facility] [address] [place], [address] GFR/1.73 sq M.predicted among non-blacks MDRD (S/P/Bld) [Vol rate/Area] 50 mL/min/{1.73_m2} Low >60 [facility] Comment on above: Result Comment: Non- GFR Calc Performed By: #### L 100.0100, L500.2500, L501.21964, L501.9520, L506.0400 #### [facility] [address] [place], [address] Glucose [Mass/Vol] 91 mg/dL Normal 74-106 [facility] Comment on above: Performed By: #### L 100.0100, L500.2500, L501.70597, L501.9520, L506.0400 #### [facility] [address] [place], [address] Potassium [Moles/Vol] 4.1 mmol/L Normal 3.5-5.[address] [facility] Comment on above: Performed By: #### L 100.0100, L500.2500, L501.33684, L501.9520, L506.0400 #### [facility] [address] [place], [address] Sodium [Moles/Vol] 136 mmol/L Normal 136-145 [facility] Comment on above: Performed By: #### L 100.0100, L500.2500, L501.19847, L501.9520, L506.0400 #### [facility] [address] [place], [address] Urea nitrogen [Mass/Vol] 25 mg/dL High 7-18 [facility] Comment on above: Performed By: #### L 100.0100, L500.2500, L501.08099, L501.9520, L506.0400 #### [facility] [address] [place], [address] CBC W/Diff, Automatedon 11-2 1-2024 Absolute Lymph 2.18 X10 3/uL Normal 0.83-4.51 [facility] Comment on above: Performed By: #### L 100.0100, L500.2500, L501.28444, L501.9520, L506.0400 #### [facility] [address] [place], [address] Absolute Neut 7.2 X10 3/uL Normal 2.0-7.7 [facility] Comment on above: Performed By: #### L 100.0100, L500.2500, L501.39239, L501.9520, L506.0400 #### [facility] [address] [place], [address] Basophils/100 WBC (Bld) 1.0 % Normal 0-1 [facility] Comment on above: Performed By: #### L 100.0100, L500.2500, L501.63510, L501.9520, L506.0400 #### [facility] [address] [place], [address] Eosinophils/100 WBC (Bld) 3.9 % Normal 0-5 [facility] Comment on above: Performed By: #### L 100.0100, L500.2500, L501.77406, L501.9520, L506.0400 #### [facility] [address] [place], [address] Erythrocyte distribution width (RBC) [Ratio] 13.7 % Normal 11.6-14.6 [facility] Comment on above: Performed By: #### L 100.0100, L500.2500, L501.89004, L501.9520, L506.0400 #### [facility] [address] [place], [address] Hematocrit (Bld) [Volume fraction] 46.7 % Normal 37-47 [facility] Comment on above: Performed By: #### L 100.0100, L500.2500, L501.26036, L501.9520, L506.0400 #### [facility] [address] [place], [address] Hemoglobin (Bld) [Mass/Vol] 14.7 g/dL Normal 12.0-15.0 [facility] Comment on above: Performed By: #### L 100.0100, L500.2500, L501.39444, L501.9520, L506.0400 #### [facility] [address] [place], [address] IG% 0.900 Normal 0.0-0.9 [facility] Comment on above: Result Comment: IG% - Immature Granulocytes (promyelocytes, myelocytes and metamyelocytes) > 1% indicates that a LEFT SHIFT is Present. Performed By: #### L 100.0100, L500.2500, L501.19737, L501.9520, L506.0400 #### [facility] [address] [place], [address] Lymphocytes/100 WBC (Bld) 20.0 % Normal 19-41 [facility] Comment on above: Performed By: #### L 100.0100, L500.2500, L501.83570, L501.9520, L506.0400 #### [facility] [address] [place], [address] MCH (RBC) [Entitic mass] 29.2 pg Normal 27.0-32.0 [facility] Comment on above: Performed By: #### L 100.0100, L500.2500, L501.27550, L501.9520, L506.0400 #### [facility] [address] [place], [address] MCHC (RBC) [Mass/Vol] 31.5 g/dL Low 32-[address] [facility] Comment on above: Performed By: #### L 100.0100, L500.2500, L501.00170, L501.9520, L506.0400 #### [facility] [address] [place], [address] MCV (RBC) [Entitic vol] 92.7 fL Normal 81-99 [facility] Comment on above: Performed By: #### L 100.0100, L500.2500, L501.06445, L501.9520, L506.0400 #### [facility] [address] [place], [address] Monocytes/100 WBC (Bld) 8.2 % Normal 0-10 [facility] Comment on above: Performed By: #### L 100.0100, L500.2500, L501.24569, L501.9520, L506.0400 #### [facility] [address] [place], [address] Neutrophils/100 WBC (Bld) 66.0 % Normal 47-70 [facility] Comment on above: Performed By: #### L 100.0100, L500.2500, L501.90673, L501.9520, L506.0400 #### [facility] [address] [place], [address] Nucleated RBC (Bld) [#/Vol] 0 10*3/uL Normal 0-5 [facility] Comment on above: Performed By: #### L 100.0100, L500.2500, L501.80552, L501.9520, L506.0400 #### [facility] [address] [place], [address] Platelet mean volume (Bld) [Entitic vol] 12.4 fL High 6.2-12.0 [facility] Comment on above: Performed By: #### L 100.0100, L500.2500, L501.69496, L501.9520, L506.0400 #### [facility] [address] [place], [address] Platelets (Bld) [#/Vol] 297 10*3/uL Normal 150-450 [facility] Comment on above: Performed By: #### L 100.0100, L500.2500, L501.95735, L501.9520, L506.0400 #### [facility] [address] [place], [address] RBC (Bld) [#/Vol] 5.04 10*6/uL Normal 4.2-5.4 [facility] Comment on above: Performed By: #### L 100.0100, L500.2500, L501.62425, L501.9520, L506.0400 #### [facility] [address] [place], [address] RDW SD 46.5 fl High 35.1-43.9 [facility] Comment on above: Performed By: #### L 100.0100, L500.2500, L501.75733, L501.9520, L506.0400 #### [facility] [address] [place], [address] WBC (Bld) [#/Vol] 10.9 10*3/uL Normal 4.4-11.0 [facility] Comment on above: Performed By: #### L 100.0100, L500.2500, L501.34103, L501.9520, L506.0400 #### [facility] [address] [place], [address] Free T3on 01-10-2024 Free T3 [Mass/Vol] 2.0 pg/mL Low 2.18-3.98 [facility] Comment on above: Performed By: #### L 100.0100, L500.2500, L501.98158, L501.9520, L506.0400 #### [facility] [address] [place], [address] T4 Free Directon 01-10-2024 T4 FREE DIRECT 1.30 ng/dL Normal 0.76-1.46 [facility] Comment on above: Performed By: #### L 100.0100, L500.2500, L501.14465, L501.9520, L506.0400 #### [facility] [address] [place], [address] Thyroid Stim Hormone (TSH)on 01-10-2024 TSH 2.910 uIU/mL Normal 0.358-3.740 [facility] Comment on above: Performed By: #### L 100.0100, L500.2500, L501.10683, L501.9520, L506.0400 #### [facility] [address] [place], [address] Basic Metabolic Profile (BMP )on 12-28-2023 BUN/CRE 25.1 RATIO High 10-20 [facility] Comment on above: Order Comment: Order Date: 12/26/23Order Info: 0667-1 - BMP Performed By: #### L 100.0100, L500.2500, L501.49685, L501.9520, L506.0400 #### [facility] [address] [place], [address] CA,Total 9.6 mg/dL Normal 8.5-10.1 [facility] Comment on above: Order Comment: Order Date: 12/26/23Order Info: 0667-1 - BMP Performed By: #### L 100.0100, L500.2500, L501.02660, L501.9520, L506.0400 #### [facility] [address] [place], [address] Chloride [Moles/Vol] 107 mmol/L Normal 98-107 [facility] Comment on above: Order Comment: Order Date: 12/26/23Order Info: 0667- - BMP Performed By: #### L 100.0100, L500.2500, L501.06819, L501.9520, L506.0400 #### [facility] [address] [place], [address] CO2 [Moles/Vol] 26.0 mmol/L Normal 21.0-32.0 [facility] Comment on above: Order Comment: Order Date: 12/26/23Order Info: [id number] - BMP Performed By: #### L 100.0100, L500.2500, L501.38054, L501.9520, L506.0400 #### [facility] [address] [place], [address] Creatinine [Mass/Vol] 0.96 mg/dL Normal 0.55-1.[address] [facility] Comment on above: Order Comment: Order Date: 12/26/23Order Info: 06 - BMP Result Comment: The validity of the calculated GFR GFRAA in patients over 70 years has not been determined. Clinical correlation is essential. Performed By: #### L 100.0100, L500.2500, L501.82574, L501.9520, L506.0400 #### [facility] [address] [place], [address] EST GFR - AA 73 mL/min Normal >60 [facility] Comment on above: Order Comment: Order Date: 12/26/23Order Info: 06- - BMP Result Comment: Afri can [place] GFR Calc Performed By: #### L 100.0100, L500.2500, L501.79406, L501.9520, L506.0400 #### [facility] [address] [place], [address] GAP 6 Normal 5-15 [facility] Comment on above: Order Comment: Order Date: 12/26/23Order Info: 0667 - BMP Performed By: #### L 100.0100, L500.2500, L501.86082, L501.9520, L506.0400 #### [facility] [address] [place], [address] GFR/1.73 sq M.predicted among non-blacks MDRD (S/P/Bld) [Vol rate/Area] 60 mL/min/{1.73_m2} Normal >60 [facility] [facility] Comment on above: Order Comment: Order Date: 12/26/23Order Info: 0667- - BMP Result Comment: Non- GFR Calc Performed By: #### L 100.0100, L500.2500, L501.86192, L501.9520, L506.0400 #### [facility] [address] [place], [address] Glucose [Mass/Vol] 96 mg/dL Normal 74-106 [facility] Comment on above: Order Comment: Order Date: 12/26/23Order Info: 0667 - BMP Performed By: #### L 100.0100, L500.2500, L501.10009, L501.9520, L506.0400 #### [facility] [address] [place], [address] Potassium [Moles/Vol] 4.2 mmol/L Normal 3.5-5.[address] [facility] Comment on above: Order Comment: Order Date: 12/26/23Order Info: 0667- - BMP Performed By: #### L 100.0100, L500.2500, L501.85549, L501.9520, L506.0400 #### [facility] [address] [place], [address] Sodium [Moles/Vol] 138 mmol/L Normal 136-145 [facility] Comment on above: Order Comment: Order Date: 12/26/23Order Info: 0667- - BMP Performed By: #### L 100.0100, L500.2500, L501.07797, L501.9520, L506.0400 #### [facility] [address] [place], [address] Urea nitrogen [Mass/Vol] 24 mg/dL High 7-18 [facility] Comment on above: Order Comment: Order Date: 12/26/23Order Info: 0667-1 - BMP Performed By: #### L 100.0100, L500.2500, L501.71930, L501.9520, L506.0400 #### [facility] [address] [place], [address] CBC W/Diff, Automatedon 11-0 8-2023 Absolute Lymph 2.11 X10 3/uL Normal 0.83-4.51 [facility] Comment on above: Order Comment: Order Date: 12/26/23 Order Info: 0184-1 - CBCD Performed By: #### L 100.0100 #### [facility] [address] [place], [address] Absolute Neut 6.1 X10 3/uL Normal 2.0-7.7 [facility] Comment on above: Order Comment: Order Date: 12/26/23 Order Info: 0184-1 - CBCD Performed By: #### L 100.0100 #### [facility] [address] [place], [address] Basophils/100 WBC (Bld) 0.9 % Normal 0-1 [facility] Comment on above: Order Comment: Order Date: 12/26/23 Order Info: 0184-1 - CBCD Performed By: #### L 100.0100 #### [facility] [address] [place], [address] Eosinophils/100 WBC (Bld) 4.6 % Normal 0-5 [facility] Comment on above: Order Comment: Order Date: 12/26/23 Order Info: 0184-1 - CBCD Performed By: #### L 100.0100 #### [facility] [address] [place], [address] Erythrocyte distribution width (RBC) [Ratio] 13.6 % Normal 11.6-14.6 [facility] Comment on above: Order Comment: Order Date: 12/26/23 Order Info: 0184-1 - CBCD Performed By: #### L 100.0100 #### [facility] [address] [place], [address] Hematocrit (Bld) [Volume fraction] 42.4 % Normal 37-47 [facility] Comment on above: Order Comment: Order Date: 12/26/23 Order Info: 018- - CBCD Performed By: #### L 100.0100 #### [facility] [address] [place], [address] Hemoglobin (Bld) [Mass/Vol] 13.3 g/dL Normal 12.0-15.0 [facility] Comment on above: Order Comment: Order Date: 12/26/23 Order Info: 0184- - CBCD Performed By: #### L 100.0100 #### [facility] [address] [place], [address] IG% 1.000 High 0.0-0.9 [facility] Comment on above: Order Comment: Order Date: 12/26/23 Order Info: 0184- - CBCD Result Comment: IG% - Immature Granulocytes (promyelocytes, myelocytes and metamyelocytes) > 1% indicates that a LEFT SHIFT is Present. Performed By: #### L 100.0100 #### [facility] [address] [place], [address] Lymphocytes/100 WBC (Bld) 22.0 % Normal 19-41 [facility] Comment on above: Order Comment: Order Date: 12/26/23 Order Info: 0184-1 - CBCD Performed By: #### L 100.0100 #### [facility] [address] [place], [address] MCH (RBC) [Entitic mass] 29.3 pg Normal 27.0-32.0 [facility] Comment on above: Order Comment: Order Date: 12/26/23 Order Info: 0184-1 - CBCD Performed By: #### L 100.0100 #### [facility] [address] [place], [address] MCHC (RBC) [Mass/Vol] 31.4 g/dL Low 32-[address] [facility] Comment on above: Order Comment: Order Date: 12/26/23 Order Info: 0184-1 - CBCD Performed By: #### L 100.0100 #### [facility] [address] [place], [address] MCV (RBC) [Entitic vol] 93.4 fL Normal 81-99 [facility] Comment on above: Order Comment: Order Date: 12/26/23 Order Info: 0184-1 - CBCD Performed By: #### L 100.0100 #### [facility] [address] [place], [address] Monocytes/100 WBC (Bld) 7.5 % Normal 0-10 [facility] Comment on above: Order Comment: Order Date: 12/26/23 Order Info: 0184-1 - CBCD Performed By: #### L 100.0100 #### [facility] [address] [place], [address] Neutrophils/100 WBC (Bld) 64.0 % Normal 47-70 [facility] Comment on above: Order Comment: Order Date: 12/26/23 Order Info: 0184-1 - CBCD Performed By: #### L 100.0100 #### [facility] [address] [place], [address] Nucleated RBC (Bld) [#/Vol] 0 10*3/uL Normal 0-5 [facility] Comment on above: Order Comment: Order Date: 12/26/23 Order Info: 0184-1 - CBCD Performed By: #### L 100.0100 #### [facility] [address] [place], [address] Platelet mean volume (Bld) [Entitic vol] 12.6 fL High 6.2-12.0 [facility] Comment on above: Order Comment: Order Date: 12/26/23 Order Info: 4-1 - CBCD Performed By: #### L 100.0100 #### [facility] [address] [place], [address] Platelets (Bld) [#/Vol] 263 10*3/uL Normal 150-450 [facility] Comment on above: Order Comment: Order Date: 12/26/23 Order Info: 4-1 - CBCD Performed By: #### L 100.0100 #### [facility] [address] [place], [address] RBC (Bld) [#/Vol] 4.54 10*6/uL Normal 4.2-5.4 [facility] Comment on above: Order Comment: Order Date: 12/26/23 Order Info: 0184-1 - CBCD Performed By: #### L 100.0100 #### [facility] [address] [place], [address] RDW SD 46.2 fl High 35.1-43.9 [facility] Comment on above: Order Comment: Order Date: 12/26/23 Order Info: 0184-1 - CBCD Performed By: #### L 100.0100 #### [facility] [address] [place], [address] WBC (Bld) [#/Vol] 9.6 10*3/uL Normal 4.4-11.0 [facility] Comment on above: Order Comment: Order Date: 12/26/23 Order Info: 0184-1 - CBCD Performed By: #### L 100.0100 #### [facility] [address] [place], [address] CNOVon 12-03-2023 CNOV Office Visit (GENSWS ) ----- MADDISON RIVERA ([id number]) 1945 F Date Time Provider Department 12/03/23 3:30 PM KAMILA MERCADO During your visit today, we recorded the following information about you: Temperature Pulse Blood pressure Weight 96 degrees 106/minute 138/78 76.9 kg Height 1.727 m Kamila Mercado MD 12/07/2023 3:08 PM Signed Maddison Rivera 1945 REFERRING PHYSICIAN: No ref. provider found CHIEF COMPLAINT: Follow Up (Ct scan 11/26/23, ) HPI: The patient is a 77 year old female had presented with complaint of chest wall abnormality. Chest CT scan was obtained to rule out malignancy. Findings of the following: Bilateral subcentimeter pulmonary nodules: *4 mm nodule anterior right upper lobe (7:92) *3 mm nodule anterior right upper lobe (7:98) *4 mm nodule lateral left lower lobe (7:109) *6 mm nodule posterior left lower lobe (7:117) *5 mm nodule posterior left lower lobe (7:118) nths It is recommended by the radiologist for patient to undergo repeat chest CT in 3-6 months Patient denies shortness of breath or coughing up blood PAST MEDICAL HISTORY Diagnosis Date Allergies Arthritis Breast cancer (HCC) LEFT BREAST CA/MASTECTOMY Chronic pain LEFT SHOULDER DR PEREZ FOLLOWING Closed fracture of shaft of fibula with tibia 05/17/2010 Delayed emergence from general anesthesia VERY SLOW TO WAKE UP, ALLEGIC TO A LOT OF MEDS AND PAIN MEDS Headache HYPERTENSION NOS 02/22/2007 NOT CURRENTLY, NO MEDS Lung nodules Macular degeneration 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 LAPAROSCOPY SURG CHOLECYSTECTOMY Cholecystectomy, lap MASTECTOMY HX Bilateral OPTX ANKLE DISLOCATION W/REPAIR/INT/XTRNL FIXJ 2010 ORIF Ankle PAST SURGICAL HISTORY OF age 40 hysterectomy PAST SURGICAL HISTORY OF Bilateral achilles tendon replacements PAST SURGICAL HISTORY OF Left 07/28/2019 revision of Lt breast reconstruction and prophylactic Rt mastectomy PAST SURGICAL HISTORY OF Left JUN LLE, AFTER FALL PAST SURGICAL HISTORY OF Left PIN LEFT HAND, LEFT FINGER REPAIR PAST SURGICAL HISTORY OF Right RIGHT WRIST FX AND REPAIR, WITH PINS STEREOTACTIC CORE BIOPSY 11/14/2006 RIGHT VAGINAL HYSTERECTOMY Current Outpatient Medications Medication Sig celecoxib (CELEBREX) 200 mg capsule Take 200 mg by mouth every morning. 0700 AM evolocumab (REPATHA PUSHTRONEX) 420 mg/3.5 mL Inject 140 mg subcutaneously every 2 weeks. TAKES FIRST OF THE MONTH levothyroxine (SYNTHROID) 50 mcg tablet Take 50 mcg by mouth daily before breakfast. ubidecarenone Q-10 (CO Q-10) 10 mg cap Take by mouth once daily. (Patient not taking: Reported on 12/03/2023) antiox #8/om3/dha/epa/lut/zeax (PRESERVISION AREDS 2, OMEGA-3, ORAL) Take by mouth once daily. (Patient not taking: Reported on 12/03/2023) No current facility-administered medications for this visit. ALLERGIES: Clindamycin, Betadine [Povidone-Iodine], Chlorhexidine, Dilaudid Cough, Erythromycin Base, Fentanyl, Gemfibrozil, Hydromorphone, Iodinated Contrast Media, Iodine, Latex, Macrodantin [Nitrofurantoin Macrocrystalline], Mobic [Meloxicam], Morphine, Nitrofurantoin, Penicillins, Prednisone, Lxgjker-Syf-Quw Reductase Inhibitors, Sulfa (Sulfonamide Antibiotics), Zinc, and Zostavax [Zoster Vaccine Live (Pf)] REVIEW OF SYSTEMS: Denies chest pain Denies shortness of breath PHYSICAL EXAMINATION: General: The patient is 77 year old female, well nourished, well hydrated in no acute distress. The patient is oriented to time, place, and person. VITALS: Blood pressure 138/78, pulse 106, temperature (!) 35.6 ?C (96 ?F), height 172.7 cm (5' 8), weight 76.9 kg (169 lb 9.6 oz), SpO2 97%. Body mass index is 25.79 kg/m?. Head: Normal cephalic, atraumatic Eyes: pupils are equally round, sclera are clear/anicteric Neck is supple with no tracheal deviation Respiratory: Normal respiratory excursion and pattern. Abdominal exam: benign Extremities: no clubbing, cyanosis or edema. Neuro: non focal Psych: normal mood Assessment IMPRESSION: incidental findings of pulmonary nodules - subcentimeter PLAN: I have discussed the above with the patient. I have reassured patient that there is no major abnormality/recurrence of cancer of her chest wall. I have also reassured that it is unlikely she has lung cancer. I have placed order for surveillance chest CT for pa (more content not included)... Normal [facility] CT CHEST WO IVCONon 11-26-[address] CHEST WO IVCON * * *Final Report* * * DATE OF EXAM: Nov 26 2023 8:32AM [facility] 0541 - CT CHEST WO IVCON / PROCEDURE REASON: Sarcoidosis of lung (HCC) * * * * Physician Interpretation * * * * EXAMINATION: CHEST CT WITHOUT CONTRAST CLINICAL HISTORY: Left chest wall mass. Sarcoidosis. Technique: Spiral CT acquisition of the chest from the thoracic inlet to the upper abdomen without contrast. MQ: [id number] CT Radiation dose: Integrated Dose-length product (DLP) for this visit = 197 mGy*cm CT Dose Reduction Employed: Automated exposure control(AEC) and iterative recon Comparison: No prior CT chest is available for comparison RESULT: Limitations: None. Lines, tubes, and devices: None. Lung parenchyma and airways: Bilateral subcentimeter pulmonary nodules: *4 mm nodule anterior right upper lobe (7:92) *3 mm nodule anterior right upper lobe (7:98) *4 mm nodule lateral left lower lobe (7:109) *6 mm nodule posterior left lower lobe (7:117) *5 mm nodule posterior left lower lobe (7:118) No consolidation. Linear scarring or atelectasis in bilateral posterior lower lobes. Central airways are patent. Pleural space: No pleural effusion. No pleural thickening. Lower neck, lymph nodes, and mediastinum: The imaged thyroid gland is normal. No lymphadenopathy in the supraclavicular, axillary, mediastinal, or hilar regions. Heart, pericardium, and thoracic vessels: The thoracic aorta and main pulmonary artery are normal in caliber. The cardiac chambers are normal in size. Mild coronary artery atherosclerotic calcifications are noted, although the study is not optimized for coronary assessment. No pericardial effusion or thickening. Bones and soft tissues: No destructive bone lesion. Degenerative disease of the thoracic spine. Chest wall is unremarkable. Upper abdomen: No acute abnormality in the imaged upper abdomen. Cyst in the left lobe of the liver. Localizer images: No additional findings. IMPRESSION: 1. Subcentimeter pulmonary nodules 2. No thoracic lymphadenopathy Incidental Finding: Follow-up Acuity: Incidental Findings: Solid: 6-8 mm (multiple nodules) Routing Code: RI_1 Recommendation: CT Chest WO IVCON Time Frame: 3-6 months Comments: If stable on follow-up imaging, a repeat chest CT exam in 12 months (15 - 18 months from the initial exam) is recommended. --END OF FINDING-- 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BILL Transcribe Date/Time: Nov 29 2023 1:14P Dictated by : JACKIE KNOX MD This examination was interpreted and the report reviewed and electronically signed by: JACKIE KNOX MD on Nov 29 2023 1:52PM EST [id number] ACTIONABLE Invalid Interpretation Code [facility] CNOVon 11-12-2023 CNOV Office Visit (ÁNGELAS ) ----- MADDISON RIVERA ([id number]) 1945 F Date Time Provider Department 11/12/23 4:15 PM KAMILA MERCADO During your visit today, we recorded the following information about you: Temperature Pulse Blood pressure Weight 98.1 degrees 85/minute 141/84 76.7 kg Height 1.702 m Raquel Wadsworth LPN 11/12/2023 4:01 PM Signed REVIEW OF SYSTEMS: General: The patient denies fatigue, denies weight loss, denies weight gain, denies feeling hot, and denies feelings of cold. Eyes: The patient denies glaucoma, denies eye injury/surgery, wears glasses or contacts. Ear/Nose/Throat: The patient notes allergies, denies hayfever, denies ear infections, and denies bloody noses. Cardiovascular: The patient denies chest pain, denies heart disease, denies high blood pressure,denies cardiac stent, denies prior heart attack, denies irregular heart beat, notes high cholesterol, denies poor circulation, denies heart failure, other cardiac issues, denies claudication, denies cold feet, denies peripheral arterial stent. Respiratory: The patient denies tuberculosis, denies pneumonia, denies frequent cough, denies pulmonary embolism, denies shortness of breath, and denies coughing up blood. Gastrointestinal: The patient denies difficulty swallowing, denies acid reflux, denies ulcers, denies vomiting, denies jaundice/hepatitis, denies gallbladder problems, denies black or tarry stools, denies hemorrhoids, denies bleeding from rectum, denies diverticulitis, denies constipation, denies diarrhea, denies loss of stool control, and denies hernias. Kidney/Bladder: The patient denies kidney stones, denies urine infections, and denies bloody urine. Skin: The patient denies a history of skin cancer, denies bleeding/changing moles, and denies a history of skin rash. Neurologic: The patient denies a history of epilepsy/convulsions, denies headaches, denies head/spinal injuries, and denies stroke/TIA. Psychiatric: The patient denies psychiatric medications, denies depression, and denies voices, denies substance abuse. Endocrine: The patient notes thyroid disorders, denies diabetes, and denies hormonal problems. Hematologic: The patient denies a history of bruising, denies bleeding, and denies anemia, denies blood clots. Infections: The patient denies a history of measles and mumps, denies rheumatic fever, and denies sexually transmitted diseases. Musculoskeletal: The patient notes back pain/injury, notes back problems, denies sciatica, notes knee/foot trouble, denies arthritis, or denies gout. When was patient's last Mammogram screening? 2013 Last Colonoscopy: 2022 XIN Perez Linda Marie, MD 11/13/2023 3:17 PM Signed Maddison Rivera 1945 REFERRING PHYSICIAN: No ref. provider found CHIEF COMPLAINT: Consult (Lump under left arm) HPI: The patient is a 77 year old female with a complaint of .left chest wall lesion. She also complains of left chest wall pain. She is s/p left breast mastectomy with TRAM reconstruction in 2019. Because of chronic pain at the site, she had TRAM removed in 2019 and also requested prophylactic right breast mastectomy. Right breast mastectomy pathology revealed foci of multifocal atypical lobular hyperplasia, foci of intraductal hyperplasia with atypia. She had complaint of left chest wall pain after removal of TRAM and she was seen by plastic surgery at [facility]. Recommendations were made for pain management and breast rehab/PT. She stated in follow up appointment that PT did help with pain. Patient states that she has pain in her lower rib cage site when wearing a prosthetic bra. She also notes a left breast subcutaneous mass and also an elongated area of soft tissue at the level of her lower left rib cage. She also notes a right sided skin lesion, < 1 cm that she is also concerned about. PAST MEDICAL HISTORY Diagnosis Date Allergies Arthritis Breast cancer (HCC) LEFT BREAST CA/MASTECTOMY Chronic pain LEFT SHOULDER DR PEREZ FOLLOWING Closed fracture of shaft of fibula with tibia 05/17/2010 Delayed emergence from general anesthesia VERY SLOW TO WAKE UP, ALLEGIC TO A LOT OF MEDS AND PAIN MEDS Headache HYPERTENSION NOS 02/22/2007 NOT CURRENTLY, NO MEDS Macular degeneration 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 LAPAROSCOPY SURG CHOLECYSTECTOMY Cholecystecto (more content not included)... [facility] percentageOrdered B y: Jesus Peters on 05-21-2023 Chloride [Moles/Vol] 105 mmol/L 98-107 [facility] Cholesterol [Mass/Vol] 250 mg/dL <200 [facility] Comment on above: <200 mg/dL Desirable 200-240 mg/dL Borderline >240 mg/dL High Risk Glucose [Mass/Vol] 98 mg/dL 74-106 [facility] Potassium [Moles/Vol] 4.1 mmol/L 3.5-5.[address] [facility] Sodium [Moles/Vol] 139 mmol/L 136-145 [facility] Triglyceride [Mass/Vol] 225 mg/dL <199 [facility] Comment on above: The drugs N-Acetylcy steine and Metamizole may falsely depress this assay.Serum Triglycerides Reference Interval Normal <150 mg/dL Borderline high 150 - 199 mg/dL High 200 - 499 mg/dL Very High > or = 500 mg/dL Laboratory - Chemistry and C hemistry - challengeOrdered By: Jesus Peters on 05-21-2023 Cholesterol in HDL [Mass/Vol] 45 mg/dL >40 [facility] Comment on above: The drugs N-Acetylcy steine and Metamizole may falsely depress this assay. Reference Range HDL <40 mg/dL Low HDL Cholesterol HDL >or= 60 mg/dL High HDL Cholesterol Cholesterol in LDL [Mass/Vol] 160 mg/dL 0-130 [facility] CO2 [Moles/Vol] 29.0 mmol/L 21.0-32.0 [facility] Urea nitrogen/Creatinine [Mass ratio] 24.1 mg/mg 10-20 [facility] No Panel InformationOrdered By: Jesus Peters on 05-21-2023 Estimated GFR (MDRD) Amer 81 mL/min >60 [facility] Comment on above: GFR Calc Estimated GFR (MDRD) Non-Af Amer 67 mL/min >60 [facility] Comment on above: Non- GFR Calc Vitamin D 25-Hydroxy 42.6 ng/mL [facility] Comment on above: Vitamin D 25(OH) Sta tus Range Deficiency <20 ng/mL (50nmol/L) Insufficiency 20 - 30 ng/mL (50 - 75 nmol/L) Sufficiency 30 - 100 ng/mL (75 - 250 nmol/L) Toxicity >100 ng/mL (>250 nmol/L) VLDL Cholesterol 45 mg/dL 5-40 [facility] Serum or plasma calcium iris urement (mass/volume)Ordered By: Jesus Peters on 05-21-2023 Calcium [Mass/Vol] 9.3 mg/dL 8.5-10.1 [facility] Serum or plasma creatinine m easurement (mass/volume)Ordered By: Jessu Peters on 05-21-2023 Creatinine [Mass/Vol] 0.87 mg/dL 0.55-1.[address] [facility] Comment on above: The validity of the calculated GFR & GFRAA in patients over 70 years has not been determined. Clinical correlation is essential. Serum or plasma thyroid stim ulating hormone (TSH) measurement (units/volume)Ordered By: Jesus Peters on 05-21-2023 TSH Qn 1.65 uIU/mL 0.358-3.74 [facility] Serum or plasma urea nitroge n measurement (mass/volume)Ordered By: Jesus Peters on 05-21-2023 Urea nitrogen [Mass/Vol] 21 mg/dL 7-18 [facility] Thin prep Papanicolaou smear with manual screeningOrdered By: Jesus Peters on 05-21-2023 Thin prep Papanicolaou smear with manual screening 5 5-15 [facility] Basophil percentageOrdered B y: Jesus Peters on 02-21-2023 Chloride [Moles/Vol] 107 mmol/L 98-107 [facility] Cholesterol [Mass/Vol] 262 mg/dL <200 [facility] Comment on above: <200 mg/dL Desirable 200-240 mg/dL Borderline >240 mg/dL High Risk Glucose [Mass/Vol] 88 mg/dL 74-106 [facility] Potassium [Moles/Vol] 4.1 mmol/L 3.5-5.[address] [facility] Sodium [Moles/Vol] 140 mmol/L 136-145 [facility] Triglyceride [Mass/Vol] 280 mg/dL <199 [facility] Comment on above: The drugs N-Acetylcy steine and Metamizole may falsely depress this assay.Serum Triglycerides Reference Interval Normal <150 mg/dL Borderline high 150 - 199 mg/dL High 200 - 499 mg/dL Very High > or = 500 mg/dL Laboratory - Chemistry and C hemistry - challengeOrdered By: Jesus Peters on 02-21-2023 CO2 [Moles/Vol] 27.0 mmol/L 21.0-32.0 [facility] Free T4 [Mass/Vol] 1.31 ng/dL 0.76-1.46 [facility] Urea nitrogen/Creatinine [Mass ratio] 25.2 mg/mg 10-20 [facility] No Panel InformationOrdered By: Jesus Peters on 02-21-2023 Estimated GFR (MDRD) Amer 81 mL/min >60 [facility] Comment on above: GFR Calc Estimated GFR (MDRD) Non-Af Amer 67 mL/min >60 [facility] Comment on above: Non- GFR Calc Free Triiodothyronine (T3) pg/dL 2.4 pg/mL 2.18-3.98 [facility] Thyroid Stimulating Hormone (TSH) 1.61 uIU/mL 0.358-3.74 [facility] Serum or plasma calcium iris urement (mass/volume)Ordered By: Jesus Peters on 02-21-2023 Calcium [Mass/Vol] 9.7 mg/dL 8.5-10.1 [facility] Serum or plasma cholesterol in HDL measurement (mass/volume)Ordered By: Jesus Peters on 02-21-2023 Cholesterol in HDL [Mass/Vol] 47 mg/dL >40 [facility] Comment on above: The drugs N-Acetylcy steine and Metamizole may falsely depress this assay. Reference Range HDL <40 mg/dL Low HDL Cholesterol HDL >or= 60 mg/dL High HDL Cholesterol Serum or plasma cholesterol in VLDL measurement (mass/volume)Ordered By: Jesus Peters on 02-21-2023 Cholesterol in VLDL [Mass/Vol] 56 mg/dL 5-40 [facility] Serum or plasma creatinine m easurement (mass/volume)Ordered By: Jesus Peters on 02-21-2023 Creatinine [Mass/Vol] 0.87 mg/dL 0.55-1.[address] [facility] Comment on above: The validity of the calculated GFR & GFRAA in patients over 70 years has not been determined. Clinical correlation is essential. Serum or plasma low density lipoprotein (LDL) cholesterol measurement (mass/volume)Ordered By: Jesus Peters on 02-21-2023 Cholesterol in LDL [Mass/Vol] 159 mg/dL 0-130 [facility] Serum or plasma urea nitroge n measurement (mass/volume)Ordered By: Jesus Peters on 02-21-2023 Urea nitrogen [Mass/Vol] 22 mg/dL 7-18 [facility] Thin prep Papanicolaou smear with manual screeningOrdered By: Jesus Peters on 02-21-2023 Thin prep Papanicolaou smear with manual screening 6 5-15 [facility] COLONOSCOPY SCREENINGon 11-20 [facility] SURGICAL PATHOLOGYon 023 Case Report Surgical Pathology R eport Case: [id number] Authorizing Provider: Kamila Mercado MD Collected: 11/27/2022 10:39 AM Ordering Location: General Surgery Received: 11/27/2022 04:13 PM Pathologist: Teresa Goncalves MD Specimen: SKIN EXCISION, left thigh [facility] Clinical History skin excision of lef t thigh [facility] Diagnosis Comment The lesion extends t o the deep and lateral aspects of the specimen. [facility] FINAL DIAGNOSIS A. Skin, left thigh, excision: - Basal cell carcinoma, nodular type, see comment. MP/DF/kr 11/28/2022 [facility] Gross Description A. SKIN EXCISION Received in formalin is a 0.7 x 0.4 x 0.3 cm shave of skin. On the skin surface there is a 0.5 cm pace elevated area. The specimen is bisected. Totally submitted in one cassette. Gross examination performed at [facility], [address] [place] [address] FFS 11/27/2022 9:04 PM [facility] Performing Lab Diagnostic interpret ation performed at [facility], [address] [facility] [address] CLIA# [id number] Technical Director: Len Dia M.D. [facility] Laboratory - Chemistry and C hemistry - challengeOrdered By: Jesus Peters on 11-08-2022 Free T4 [Mass/Vol] 1.17 ng/dL 0.76-1.46 [facility] No Panel InformationOrdered By: Jesus Peters on 11-08-2022 Free Triiodothyronine (T3) pg/dL 2.1 pg/mL 2.18-3.98 [facility] Thyroid Stimulating Hormone (TSH) 1.75 uIU/mL 0.358-3.74 [facility] ALLIED HEALTHon 08-31-2022 ALLIED HEALTH HNO ID: [id number] Author: Esthela Carter RT(R) Service: Radiology Author Type: Technologist Type: Allied Health Filed: 08/31/2022 9:58 AM Note Text: ----- Summary: xray ----- Radiology Service Progress Note PATIENT NAME: Maddison Rivera DATE OF SERVICE: August 31, 2022 TIME: 9:57 AM PATIENT IDENTITY VERIFICATION COMPLETED USING TWO (2) IDENTIFIERS: Name and Date of confirmed by identification band. FALL SCREENING: Has the patient had 2 falls in the last year or 1 fall with injury or currently using an Ambulatory Assistive Device (Walker, Cane, Wheelchair, Crutches, etc.)? Inpatient: Screened on floor PATIENT GENDER DATA: Female. status: : No status: NO. PATIENT RELEVANT IMPLANT DATA REVIEWED: Not Applicable RADIOLOGY DEPARTMENT: General X-ray: Exam(s) Completed: Upper Extremity X-Ray(s): Shoulder, AP / TRUE AP left PERIPHERAL IV DATA: Not applicable SIGNED BY: Esthela Carter RT(R) August 31, 2022 9:57 AM [facility] ANES POSTPROC EVALon 023 ANES POSTPROC EVAL HNO ID: [id number] Author: Christiano Banuelos MD Service: Anesthesiology Author Type: Physician Type: Anesthesia Postprocedure Evaluation Filed: 08/31/2022 10:38 AM Note Text: POST ANESTHESIA EVALUATION NOTE : 1945 Procedure Summary Date: 08/31/22 Room / Location: OR / OR Anesthesia Start: 739 Anesthesia Stop: 948 Procedure: REVERSE TOTAL SHOULDER ARTHROPLASTY (Left: Shoulder) Diagnosis: 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, left shoulder (HCC) (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, left shoulder (HCC) [M87.212]) Surgeons: Nayeli Perez MD Responsible Provider: Christiano Banuelos MD Anesthesia Type: general, regional ASA Status: 3 Anesthesia Type: general, regional Airway Type: ETT Last Vitals Vitals Value Taken Time BP 148/67 08/31/22 1030 Temp 36.8 ?C (98.2 ?F) 08/31/22 1030 Pulse 63 08/31/22 1036 Resp 16 08/31/22 1030 SpO2 97 % 08/31/22 1036 Vitals shown include unvalidated device data. Post Anesthesia Patient Status Patient Evaluation: PACU. PACU/ICU Patient Condition: stable. Anticipated Disposition: phase 2 then home. Neurological Status: aware and responsive. Pulmonary Status: breathing comfortably on room air Airway Control: returned to baseline unsupported. Cardiovascular Status: stable. Pain Management: clinically adequate - multimodal analgesia pain management approach Postoperative Hydration: acceptable. Intraoperative Events: no significant anesthesia events Post Operative Nausea/Vomiting Status: no significant post operative nausea or vomiting Recommendation: continue current plan of care. Anesthesia Observations No Documentation SIGNATURE: Christiano Banuelos MD PATIENT NAME: Maddison Rivera DATE: August 31, 2022 TIME: 10:38 AM CSN: [id number] [facility] ANES PRE-OPon 08-31-2022 ANES PRE-OP HNO ID: [id number] Author: Christiano Banuelos MD Service: Anesthesiology Author Type: Physician Type: Anesthesia Preprocedure Evaluation Filed: 08/31/2022 6:42 AM Note Text: ANESTHESIOLOGY DAY OF SURGERY NOTE : 1945 Procedure Information Date/Time: 08/31/22729 Procedure: REVERSE TOTAL SHOULDER ARTHROPLASTY (Left: Shoulder) Location: MR OR 06 / MR OR Surgeons: Nayeli Perez MD Estimated body mass index is 25.06 kg/m? as calculated from the following: Height as of this encounter: 172.7 cm (5' 8). Weight as of this encounter: 74.8 kg (164 lb 12.8 oz). Most recent hematocrit and potassium results: Hematocrit 48.5 08/07/2022 Potassium 4.7 08/07/2022 Relevant Problems ANESTHESIA (+) Delayed emergence from anesthesia CARDIO (+) Unspecified essential hypertension ENDO (+) Hypothyroidism GI (within normal limits) -RENAL (+) Renal disease PULMONARY (within normal limits) I - PHYSICAL EVALUATION AIRWAY Patient intubated: No. Tracheostomy tube not present Mallampati: III. TM distance: >3 FB. Neck ROM: full ROM without neurological symptoms. Mouth opening: adequate. Short neck: no. Thick neck: no Pena present: no Lip Bite Test: I Microretrognathia/Microna gthia/Recessed Chin: No DENTAL Dental findings: teeth intact. Additional exam findings: yes. CARDIOVASCULAR Rhythm: regular Rate: normal PULMONARY Breath sounds clear to auscultation. II - ANESTHESIA PLAN ASA Score: 3 Anesthetic Plan: general and regional Airway type: ETT The patient is not a current smoker. NPO Status: adequate Beta Cesar Monitoring Plan Monitoring plan: standard ASA. Post Procedure Analgesic Plan Postoperative analgesic plan: peripheral nerve block (Exparel Interscalene block). Informed Consent Anesthetic risks, benefits, alternatives, personnel and consent discussed: yes. Patient / Responsible Constitution Party agrees to proceed: yes Patient / Surrogate agrees to blood products: Yes Potential Anesthesia issues that may suggest increased risk of complications or contraindication to planned procedure: none. Discussed the possibility of lip / dental damage: yes Vitals Value Taken Time BP 144/84 08/31/22557 Pulse 83 08/31/22557 Resp 18 08/31/22557 Temp 36.6 ?C (97.8 ?F) 08/31/22557 SpO2 98 % 08/31/22557 Facility-Administered Medications as of 08/31/2022 Medication Dose Route Frequency - lidocaine (PF) 10 mg/mL (1 %) 1-2 mg injection (XYLOCAINE) 0.1-0.2 mL INTRADERMAL PRN - lactated ringers iv infusion 5-30 mL/hr INTRAVENOUS CONTINUOUS - NaCl 0.9% iv flush bag 20 mL INTRAVENOUS PRN - acetaminophen 1,000 mg tab(s) (TYLENOL) 1,000 mg ORAL ONCE - metoclopramide HCl 10 mg tab(s) (REGLAN) 10 mg ORAL Pre-Op Once - vancomycin 1.25 g in NaCl 0.9% 250 mL (VANCOCIN) 0.015 g/kg/dose INTRAVENOUS ONCE - celecoxib 400 mg cap(s) (CeleBREX) 400 mg ORAL ONCE Outpatient Medications as of 08/31/2022 Medication Sig - celecoxib (CELEBREX) 200 mg capsule Take 200 mg by mouth every morning. 0700 AM - evolocumab (REPATHA PUSHTRONEX) 420 mg/3.5 mL Inject 420 mg subcutaneously once every month. TAKES FIRST OF THE MONTH - levothyroxine (SYNTHROID) 50 mcg tablet Take 50 mcg by mouth daily before breakfast. I have interviewed and examined the patient. I have reviewed the medical record and/or the pre-anesthesia evaluation, pertinent labs, and test results. This contains updated information obtained within 48 hours of Surgery/Procedure. SIGNATURE: Christiano Banuelos MD PATIENT NAME: Mdadison Rivera DATE: August 31, 2022 TIME: 6:36 AM CSN: [id number] [facility] CONFIRM BLOOD TYPEon 023 ABO O [facility] Comment on above: Order Comment: Speci men Type: BLOOD SPECIMEN Ordering Facility: [facility] Address: [address] [place] [address] Performed By: #### 3 4528-0, [id number] #### [facility] CLIA [id number] [address] [place] [address] [place] Rh Nom (Bld) Positive [facility] Comment on above: Order Comment: Speci men Type: BLOOD SPECIMEN Ordering Facility: [facility] Address: [address] [place], [place] [id number] Performed By: #### 3 4528-0, 46306-7 #### [facility] CLIA [id number] [address] [place] [address] [place] HISTORY PHYSICALon HISTORY PHYSICAL HNO ID: [id number] Author: Nayeli Perez MD Service: Orthopaedic Surgery Author Type: Physician Type: HANDP Filed: 08/31/2022 7:06 AM Note Text: HANDP reviewed without changes. Normal [facility] NURSING PROGon 08-31-2022 NURSING PROG HNO ID: [id number] Author: Danica Quintana RN Service: Nursing Author Type: Registered Nurse Type: Nursing Progress Note Filed: 08/31/2022 10:00 AM Note Text: Talked with dr banuelos about something for pain. UNABLE TO ORDER ANY IVPAIN MEDS. PT IS ALLERGIC TO NARCOTICS. EXPAINED THIS PT. SHE SAID I WILL HAVE TO DEAL WITH IT Normal [facility] OPERATIVE NOon 08-31-2022 OPERATIVE NO HNO ID: [id number] Author: Nayeli Perez MD Service: Orthopaedic Surgery Author Type: Physician Type: Operative Report Filed: 08/31/2022 9:33 AM Note Text: OPERATIVE/PROCEDURE REPORT LOG ID: [id number] SURGERY/PROCEDURE DATE: 08/31/2022 INCISION/PROCEDURE START TIME: 8:12 AM INCISION CLOSE/PROCEDURE END TIME: SURGEON(S)/PROCEDURALIST( S) AND CLINICAL NURSING COORDINATOR(S): Surgeon(s) and Role: * Nayeli Perez MD - Primary Mechanical Service Representative: Tasha Hassan SA SURGERY/PROCEDURE(S): Left reverse total shoulder arthroplasty with a 10 mm press-fit Equinox humeral stem, 38 mm glenosphere, standard glenosphere baseplate, 0 mm polyethylene tray and 2.5 mm polyethylene liner. Left shoulder interscalene block with Exparel by anesthesia for acute postoperative pain relief. ANESTHESIA: General with interscalene block and Exparel. SURGERY/PROCEDURE DETAILS: The patient was taken to the operating room and placed on the operating room table in the supine position. Preoperative antibiotics were given. Left interscalene block was established with Exparel by anesthesia for acute postoperative pain relief. A preoperative timeout was performed identifying the left shoulder as the operative site. The patient was positioned in the upright beachchair position for left shoulder surgery. The left shoulder and arm were prepped and prepared in the usual sterile fashion. An anterior skin incision was made for standard deltopectoral approach the shoulder. The cephalic vein was identified and retracted laterally in a gentle manner with a Demlis retractor. The axillary nerve was palpated and was intact. The axillary nerve location was noted throughout the case. The superior half of the pectoralis major tendon was released at its insertion on the humerus. The conjoined tendon was retracted gently in a medial manner with a Delmis retractor. The circumflex vessels were identified and cauterized with the aqua mantis cautery. The subscapularis tendon was released at its insertion on the lesser tuberosity. The remaining attachments of the supraspinatus and infraspinatus tendons were released with the electrocautery at their insertion on the greater tuberosity and the biceps tendon was released intra-articularly. 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 The proximal humerus was resected at the appropriate height and version with a power saw. The humerus was reamed to 10 mm and broached to 10 mm. The 10 mm broach was left in place and protected with a stem protector. The humerus was retracted posteriorly and the glenoid was cleared of any remaining cartilage and labrum circumferentially. The charter pilot hole for the glenoid reamers was made and the glenoid was reamed to 36/38. The central drill hole for the glenosphere baseplate cage was made and a standard glenosphere baseplate with its cage filled with cancellous bone harvested from the humeral head was implanted onto the glenoid and transfixed with 1 superior and 3 inferior cortical compression screws all with good purchase. The wound was irrigated several times throughout the case with Irrisept. Locking caps were applied over the baseplate screws. A final 38 millimeter glenosphere was implanted and secured with the compression screw. A trial reduction with a 0 mm polyethylene tray and 2.5 mm polythene liner was performed with a good suction reduction and 1 mm separation with the pull test. The construct was dislocated and the trial components were removed. A final 10 mm Equinox press-fit humeral stem was placed with excellent purchase. A second trial reduction with a 0 mm polythene tray and 2.5 mm polythene liner was performed with a good suction reduction and 1 mm separation with the pull test. This construct was dislocated and the trial components were removed. A final 0 mm polythene tray and final 2.5 mm polyethylene liner were implanted and the construct was reduced with a good suction reduction and 1 mm separation with the pull test. The wound was irrigated a final time with Irrisept. The axillary nerve was palpated and it was intact. 10 cc of Floseal and 1 g of vancomycin powder were placed into the wound. The deltopectoral interval was reapproximated with a running 2-0 Monocryl suture. The subcutaneous tissue was reapproximated interrupted 2-0 Monocryl suture with the knots inverted. The skin was reapproximated with a running 3-0 Monocryl subcuticular suture. The skin was sealed with Dermabond and reinforced with Mastisol and Steri-Strips. A silver impregnated dressing was applied followed by application of a simple arm sling. The patient tolerated the procedure well and there were no Intra-Op complications. All sponge and needle counts were correct at the end of the case the patient was taken from the operating room to the recovery stable condition. End of dictation. PRE-OP/PRE-PROCEDURE DIAGNOSI (more content not included)... Normal [facility] XR SHOULDER SPECIFY 1V LTon 08-31-2022 XR SHOULDER SPECIFY 1V LT * * *Final Report* * * DATE OF EXAM: Aug 31 2022 9:57AM RHX [id number] - XR SHOULDER SPECIFY 1V LT / PROCEDURE REASON: Post-operative / post-procedure assessment, asymptomatic * * * * Physician Interpretation * * * * EXAMINATION: XR SHOULDER SPECIFY 1V LT HISTORY: Post-operative / post-procedure assessment, asymptomatic post op left shldr TECHNIQUE: XR SHOULDER SPECIFY 1V LT Laterality: NOT APPLICABLE Number of different views (projections): 1 COMPARISON: None RESULT: Status post left total shoulder arthroplasty. Hardware is intact and in proper alignment. Expected postoperative edema and gas in the surrounding soft tissues. No acute fracture or dislocation. No destructive osseous lesion. No periosteal reaction. No cortical erosion. No unexpected radiopaque foreign object. IMPRESSION: Expected postoperative changes as above. 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BILL Transcribe Date/Time: Aug 31 2022 10:05A Dictated by : MARYANNE HOROWITZ MD This examination was interpreted and the report reviewed and electronically signed by: MARYANNE HOROWITZ MD on Aug 31 2022 10:06AM EST [id number] [facility] CNPNon 08-24-2022 ANAN Telephone (PRANMY) ----- LUCIANOMADDISON Vanegas ([id number]) 1945 F Date Time Provider Department 08/24/22 ESTHELA JIMENEZ During your visit today, we recorded the following information about you: Allergies As of Date: 08/24/2022 Noted Allergy Reaction CLINDAMYCIN 07/20/2015 2 - Rash 9 - Itching 14 - Other: See Comments Comments: High Fever BETADINE (POVIDONE-IODINE) 09/29/2019 2 - Rash CHLORHEXIDINE 05/06/2021 9 - Itching DILAUDID COUGH 07/28/2022 11 - Vomiting Comments: N/V ERYTHROMYCIN BASE 05/06/2021 4 - Hives FENTANYL 05/06/2021 14 - Other: See Comments Comments: VERY HARD TO WAKE UP GEMFIBROZIL 01/07/2010 8 - GI Upset 11 - Vomiting 14 - Other: See Comments Comments: Nausea, MUSCLE ACHES HYDROMORPHONE 11/08/2011 6 - Diarrhea 11 - Vomiting 14 - Other: See Comments Comments: Nausea IODINATED CONTRAST MEDIA 06/25/2019 2 - Rash IODINE 07/28/2022 14 - Other: See Comments Comments: BLISTERS LATEX 05/06/2021 2 - Rash MACRODANTIN (NITROFURANTOIN MACRO*07/03/2006 8 - GI Upset MOBIC (MELOXICAM) 11/06/2011 14 - Other: See Comments Comments: Nausea MORPHINE 07/03/2006 6 - Diarrhea 11 - Vomiting Comments: SEE'S SPIDERS NITROFURANTOIN 05/06/2021 11 - Vomiting PENICILLINS 07/03/2006 4 - Hives PREDNISONE 07/03/2006 14 - Other: See Comments Comments: PH SYCOTIC [id number]-TYU REDUCTASE INHIBIT*05/06/2021 14 - Other: See Comments Comments: Myalgias SULFA (SULFONAMIDE ANTIBIOTICS) 07/03/2006 14 - Other: See Comments Comments: Unknown - occurred during childhood ZINC 05/06/2021 8 - GI Upset ZOSTAVAX (ZOSTER VACCINE LIVE (PF*06/10/2007 11 - Vomiting 14 - Other: See Comments Comments: Pt developed a rash on 06-10-07 within ten minutes of the injection. It involved the arms, chest and legs. It was intensely pruritic. HTN AND SOB Date Reviewed: 08/07/2022 Reviewed by: Mariaelena Vazquez RN - Fully Assessed Reason for Visit: PreOp Call [1754] Prescriptions as of 08/24/2022 - celecoxib (CELEBREX) 200 mg capsule Take 200 mg by mouth every morning. 0700 AM - evolocumab (REPATHA PUSHTRONEX) 420 mg/3.5 mL Inject 420 mg subcutaneously once every month. TAKES FIRST OF THE MONTH - levothyroxine (SYNTHROID) 50 mcg tablet Take 50 mcg by mouth daily before breakfast. 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] 08/06/2006 Pure hypercholesterolemia [E78.00] 08/06/2006 UNSP ABNORMAL MAMMOGRAM [R92.8] 10/25/2006 HEADACHE [R51] 12/13/2006 DIFF CONNECT TIS DIS NOS [M35.9] 12/13/2006 HERPES ZOSTER NOS [B02.9] 12/13/2006 VITAMIN D DEFICIENCY NOS [E55.9] 02/22/2007 Unspecified essential hypertension [I10] 02/22/2007 CATARACT NOS [H26.9] 05/27/2007 DIFFUS CYSTIC MASTOPATHY [N60.19] 02/06/2008 Pain in limb [M79.609] 05/17/2010 11/08/2011 Abnormality of gait [R26.9] 05/17/2010 Encounter Status:Closed by ESTHELA JIMENEZ on 08/24/22 [facility] Laboratory - Chemistry and C hemistry - challengeOrdered By: Jesus Peters on 08-24-2022 Free T4 [Mass/Vol] 1.17 ng/dL 0.76-1.46 [facility] No Panel InformationOrdered By: Jesus Peters on 08-24-2022 Free Triiodothyronine (T3) pg/dL 2.1 pg/mL 2.18-3.98 [facility] Thyroid Stimulating Hormone (TSH) 2.28 uIU/mL 0.358-3.74 [facility] CNPNon 08-10-2022 CNPN Telephone (PRANMY) ----- MADDISON RIVERA ([id number]) 1945 F Date Time Provider Department 08/10/22 ESTHELA JIMENEZ During your visit today, we recorded the following information about you: Allergies As of Date: 08/10/2022 Noted Allergy Reaction CLINDAMYCIN 07/20/2015 2 - Rash 9 - Itching 14 - Other: See Comments Comments: High Fever BETADINE (POVIDONE-IODINE) 09/29/2019 2 - Rash CHLORHEXIDINE 05/06/2021 9 - Itching DILAUDID COUGH 07/28/2022 11 - Vomiting Comments: N/V ERYTHROMYCIN BASE 05/06/2021 4 - Hives FENTANYL 05/06/2021 14 - Other: See Comments Comments: VERY HARD TO WAKE UP GEMFIBROZIL 01/07/2010 8 - GI Upset 11 - Vomiting 14 - Other: See Comments Comments: Nausea, MUSCLE ACHES HYDROMORPHONE 11/08/2011 6 - Diarrhea 11 - Vomiting 14 - Other: See Comments Comments: Nausea IODINATED CONTRAST MEDIA 06/25/2019 2 - Rash IODINE 07/28/2022 14 - Other: See Comments Comments: BLISTERS LATEX 05/06/2021 2 - Rash MACRODANTIN (NITROFURANTOIN MACRO*07/03/2006 8 - GI Upset MOBIC (MELOXICAM) 11/06/2011 14 - Other: See Comments Comments: Nausea MORPHINE 07/03/2006 6 - Diarrhea 11 - Vomiting Comments: SEE'S SPIDERS NITROFURANTOIN 05/06/2021 11 - Vomiting PENICILLINS 07/03/2006 4 - Hives PREDNISONE 07/03/2006 14 - Other: See Comments Comments: PH SYCOTIC EIXHMZH-[id number]-EMM REDUCTASE INHIBIT*05/06/2021 14 - Other: See Comments Comments: Myalgias SULFA (SULFONAMIDE ANTIBIOTICS) 07/03/2006 14 - Other: See Comments Comments: Unknown - occurred during childhood ZINC 05/06/2021 8 - GI Upset ZOSTAVAX (ZOSTER VACCINE LIVE (PF*06/10/2007 11 - Vomiting 14 - Other: See Comments Comments: Pt developed a rash on 06-10-07 within ten minutes of the injection. It involved the arms, chest and legs. It was intensely pruritic. HTN AND SOB Date Reviewed: 08/07/2022 Reviewed by: Mariaelena Vazquez RN - Fully Assessed Reason for Visit: PreOp Call [[id number]] Prescriptions as of 08/17/2022 - celecoxib (CELEBREX) 200 mg capsule Take 200 mg by mouth every morning. 0700 AM - evolocumab (REPATHA PUSHTRONEX) 420 mg/3.5 mL Inject 420 mg subcutaneously once every month. TAKES FIRST OF THE MONTH - levothyroxine (SYNTHROID) 50 mcg tablet Take 50 mcg by mouth daily before breakfast. 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] 08/06/2006 Pure hypercholesterolemia [E78.00] 08/06/2006 UNSP ABNORMAL MAMMOGRAM [R92.8] 10/25/2006 HEADACHE [R51] 12/13/2006 DIFF CONNECT TIS DIS NOS [M35.9] 12/13/2006 HERPES ZOSTER NOS [B02.9] 12/13/2006 VITAMIN D DEFICIENCY NOS [E55.9] 02/22/2007 Unspecified essential hypertension [I10] 02/22/2007 CATARACT NOS [H26.9] 05/27/2007 DIFFUS CYSTIC MASTOPATHY [N60.19] 02/06/2008 Pain in limb [M79.609] 05/17/2010 11/08/2011 Abnormality of gait [R26.9] 05/17/2010 Encounter Status:Closed by ESTHELA JIMENEZ on 08/17/22 [facility] ECG COMPLETEon 08-08-2022 Atrial Rate 72 BPM [facility] Calculated P [place] 10 degrees [facility] Calculated R [place] 35 degrees [facility] Calculated T [place] 52 degrees [facility] P-R Interval 140 ms [facility] QRS Duration 82 ms [facility] QT Interval 396 ms [facility] QTC Calculation (Bazett) 433 ms [facility] Ventricular Rate 72 BPM [facility] ACTIVATED PTTon 08-07-2022 aPTT Coag (PPP) [Time] 21.6 s Low 23.0 - 32.4 sec [facility] CBC panel Auto (Bld)on 08-07 Erythrocyte distribution width (RBC) [Ratio] 12.9 % 11.5 - 15.0 % [facility] Hematocrit (Bld) [Volume fraction] 48.5 % High 36.0 - 46.0 % [facility] Hemoglobin (Bld) [Mass/Vol] 15.8 g/dL High 11.5 - 15.5 g/dL [facility] MCH (RBC) [Entitic mass] 30.0 pg 26.0 - 34.0 pg [facility] MCHC (RBC) [Mass/Vol] 32.6 g/dL 30.5 - 36.0 g/dL [facility] MCV (RBC) [Entitic vol] 92.0 fL 80.0 - 100.0 fL [facility] Nucleated RBC (Bld) [#/Vol] <0.01 k/uL [facility] Platelet mean volume (Bld) [Entitic vol] 12.3 fL 9.0 - 12.7 fL [facility] Platelets (Bld) [#/Vol] 259 10*3/uL 150 - 400 k/uL [facility] RBC (Bld) [#/Vol] 5.27 10*6/uL High 3.90 - 5.2 0 m/uL [facility] WBC (Bld) [#/Vol] 10.79 10*3/uL 3.70 - 11.00 k/uL [facility] Erythrocyte distribution width (RBC) [Ratio] 12.9 % Normal 11.5-15.0 [facility] Comment on above: Order Comment: Speci men Type: BLOOD SPECIMEN Ordering Facility: [facility] Address: [address] [place] [address] [place] [address] Performed By: #### 5 8410-2, 39491-4 #### [facility] CLIA [id number] [address] [place] [address] [place] Hematocrit (Bld) [Volume fraction] 48.5 % High 36.0-46.0 [facility] Comment on above: Order Comment: Speci men Type: BLOOD SPECIMEN Ordering Facility: [facility] Address: [address] [place] [address] Performed By: #### 5 8410-2, 28776-7 #### [facility] CLIA [id number] [address] [place] [address] [place] Hemoglobin (Bld) [Mass/Vol] 15.8 g/dL High 11.5-15.5 [facility] Comment on above: Order Comment: Speci men Type: BLOOD SPECIMEN Ordering Facility: [facility] Address: [address] [place] [address] Performed By: #### 5 8410-2, 48498-7 #### [facility] CLIA [id number] [address] [place] [address] [place] MCH (RBC) [Entitic mass] 30.0 pg Normal 26.0-34.0 [facility] Comment on above: Order Comment: Speci men Type: BLOOD SPECIMEN Ordering Facility: [facility] Address: [address] [place] [address] Performed By: #### 5 8410-2, 02175-9 #### [facility] CLIA [id number] [address] [place] [address] [place] MCHC (RBC) [Mass/Vol] 32.6 g/dL Normal 30.5-36.0 [facility] Comment on above: Order Comment: Speci men Type: BLOOD SPECIMEN Ordering Facility: [facility] Address: [address] [place] [address] Performed By: #### 5 8410-2, 14505-7 #### [facility] CLIA [id number] [address] [place] [address] [place] MCV (RBC) [Entitic vol] 92.0 fL Normal 80.0-100.0 [facility] Comment on above: Order Comment: Speci men Type: BLOOD SPECIMEN Ordering Facility: [facility] Address: [address] [place] [address] Performed By: #### 5 8410-2, 18635-3 #### [facility] CLIA [id number] [address] [place] [address] [place] Nucleated RBC (Bld) [#/Vol] 10*3/uL Normal <0.01 [facility] Comment on above: Order Comment: Speci men Type: BLOOD SPECIMEN Ordering Facility: [facility] Address: [address] [place] [address] Performed By: #### 5 8410-2, 89027-4 #### [facility] CLIA [id number] [address] [place] [address] [place] Platelet mean volume (Bld) [Entitic vol] 12.3 fL Normal 9.0-12.7 [facility] Comment on above: Order Comment: Speci men Type: BLOOD SPECIMEN Ordering Facility: [facility] Address: [address] [place], [place] [address] Performed By: #### 5 8410-2, 36941-6 #### [facility] CLIA [id number] [address] [place] [address] [place] Platelets (Bld) [#/Vol] 259 10*3/uL Normal 150-400 [facility] Comment on above: Order Comment: Speci men Type: BLOOD SPECIMEN Ordering Facility: [facility] Address: [address] [place], [place] [address] Performed By: #### 5 8410-2, 95632-7 #### [facility] CLIA [id number] [address] [place] [address] [place] RBC (Bld) [#/Vol] 5.27 10*6/uL High 3.90-5.20 [facility] Comment on above: Order Comment: Speci men Type: BLOOD SPECIMEN Ordering Facility: [facility] Address: [address] [facility] [address] Performed By: #### 5 8410-2, 41971-1 #### [facility] CLIA [id number] [address] [place] [address] [place] WBC (Bld) [#/Vol] 10.79 10*3/uL Normal 3.70-11.00 [facility] Comment on above: Order Comment: Speci men Type: BLOOD SPECIMEN Ordering Facility: [facility] Address: [address] [place] [address] Performed By: #### 5 8410-2, 91170-7 #### [facility] CLIA [id number] [facility] [place] [address] [place] Comprehensive metabolic 2000 panelon 08-07-2022 Albumin [Mass/Vol] 4.2 g/dL 3.2 - 5.0 g/dL [facility] ALP [Catalytic activity/Vol] 117 U/L 45 - 117 U/L [facility] ALT [Catalytic activity/Vol] 23 U/L 13 - 61 U/L [facility] Anion gap [Moles/Vol] 9 mmol/L 5 - 16 mmol/L [facility] AST [Catalytic activity/Vol] 28 U/L 8 - 34 U/L [facility] Bilirubin [Mass/Vol] 0.5 mg/dL 0.2 - 1 .0 mg/dL [facility] Calcium [Mass/Vol] 10.5 mg/dL 8.5 - 10. 5 mg/dL [facility] Chloride [Moles/Vol] 105 mmol/L 98 - 10 7 mmol/L [facility] CO2 [Moles/Vol] 26 mmol/L 21 - 32 mmol/L [facility] Creatinine [Mass/Vol] 1.01 mg/dL High 0.51 - 0.95 mg/dL [facility] Estimated Glomerular Filtration Rate 58 mL/min/1.73m Low >=60 mL/min/1.73 m [facility] Glucose [Mass/Vol] 73 mg/dL 70 - 100 mg/[facility] Potassium [Moles/Vol] 4.7 mmol/L 3.5 - 5.1 mmol/L [facility] Protein [Mass/Vol] 8.0 g/dL 6.0 - 8.5 g/dL [facility] Sodium [Moles/Vol] 140 mmol/L 136 - 145 mmol/L [facility] Urea nitrogen [Mass/Vol] 26 mg/dL 7 - 26 mg/dL [facility] Albumin [Mass/Vol] 4.2 g/dL Normal 3.2-5.0 [facility] Comment on above: Order Comment: Speci men Type: BLOOD SPECIMEN Ordering Facility: [facility] Address: [address] [place] [address] Performed By: #### 2 4323-8 #### [facility] CLIA [id number] [address] [place] [address] [place] ALP [Catalytic activity/Vol] 117 U/L Normal 45-117 [facility] Comment on above: Order Comment: Speci men Type: BLOOD SPECIMEN Ordering Facility: [facility] Address: [address] [place] [address] Performed By: #### 2 4323-8 #### [facility] CLIA [id number] [address] [place] [address] [place] ALT [Catalytic activity/Vol] 23 U/L Normal 13-61 [facility] Comment on above: Order Comment: Millyi men Type: BLOOD SPECIMEN Ordering Facility: [facility] Address: [address] [place] [address] Result Comment: Resu lts may be falsely depressed after the administration of Sulfasalazine and/or Sulfapyridine. Performed By: #### 2 4323-8 #### [facility] CLIA [id number] [address] [place] [address] [place] Anion gap [Moles/Vol] 9 mmol/L Normal 5-16 [facility] Comment on above: Order Comment: Millyi men Type: BLOOD SPECIMEN Ordering Facility: [facility] Address: [address] [place] [address] Performed By: #### 2 4323-8 #### [facility] CLIA [id number] [address] [place] [address] [place] AST [Catalytic activity/Vol] 28 U/L Normal 8-34 [facility] Comment on above: Order Comment: Speci men Type: BLOOD SPECIMEN Ordering Facility: [facility] Address: [address] [place] [address] Result Comment: Resu lts may be falsely depressed after the administration of Sulfasalazine and/or Sulfapyridine. Performed By: #### 2 4323-8 #### [facility] CLIA [id number] [address] [place] [address] [place] Bilirubin [Mass/Vol] 0.5 mg/dL Normal 0.2-1.0 [facility] Comment on above: Order Comment: Speci men Type: BLOOD SPECIMEN Ordering Facility: [facility] Address: [address] [place] [address] Performed By: #### 2 4323-8 #### [facility] CLIA [id number] [address] [place] [address] [place] Calcium [Mass/Vol] 10.5 mg/dL Normal 8.5-10.5 [facility] Comment on above: Order Comment: Speci men Type: BLOOD SPECIMEN Ordering Facility: [facility] Address: [address] [place] [address] Performed By: #### 2 4323-8 #### [facility] CLIA [id number] [address] [place] [address] [place] Chloride [Moles/Vol] 105 mmol/L Normal 98-107 [facility] Comment on above: Order Comment: Speci men Type: BLOOD SPECIMEN Ordering Facility: [facility] Address: [address] [place] [address] Performed By: #### 2 4323-8 #### [facility] CLIA [id number] [address] [place] [address] [place] CO2 [Moles/Vol] 26 mmol/L Normal 21-32 [facility] Comment on above: Order Comment: Speci men Type: BLOOD SPECIMEN Ordering Facility: [facility] Address: [address] [id number] Performed By: #### 2 4323-8 #### [facility] CLIA [id number] [address] [place] [address] [place] Creatinine [Mass/Vol] 1.01 mg/dL High 0.51-0.95 [facility] Comment on above: Order Comment: Leland orozco Type: BLOOD SPECIMEN Ordering Facility: [facility] Address: [address] [address] Result Comment: Aleyda ents receiving either N-Acetylcysteine (NAC) or Metamizole prior to venipuncture, may have falsely depressed results. Performed By: #### 2 4323-8 #### [facility] CLIA [id number] [address] [place] [address] [place] ESTIMATED GLOMERULAR FILTRATION RATE 58 mL/min/1.73m??? Low >=60 [facility] Comment on above: Order Comment: Leland orozco Type: BLOOD SPECIMEN Ordering Facility: [facility] Address: [address] [address] Result Comment: Sally mated Glomerular Filtration Rate (eGFR) is calculated using the 2020 CKD-EPI creatinine equation. This equation utilizes serum creatinine, sex, and age as parameters. The creatinine assay has traceable calibration to isotope dilution-mass spectrometry. Refer to KDIGO guidelines for clinical interpretation. In patients with unstable renal function, e.g. those with acute kidney injury, the eGFR may not accurately reflect actual GFR. Performed By: #### 2 4323-8 #### [facility] CLIA [id number] [address] [place] [address] [place] Glucose [Mass/Vol] 73 mg/dL Normal 70-100 [facility] Comment on above: Order Comment: Leland orozco Type: BLOOD SPECIMEN Ordering Facility: [facility] Address: [address] [place] [address] Result Comment: The [place] Diabetes Association (ADA) provides guidance for cutoff values for fasting glucose and random glucose. The ADA defines fasting as no caloric intake for at least 8 hours. Fasting plasma glucose results between 100 to 125 mg/dL indicate increased risk for diabetes (prediabetes). Fasting plasma glucose results greater than or equal to 126 mg/dL meet the criteria for diagnosis of diabetes. In the absence of unequivocal hyperglycemia, results should be confirmed by repeat testing. In a patient with classic symptoms of hyperglycemia or hyperglycemic crisis, random plasma glucose results greater than or equal to 200 mg/dL meet the criteria for diagnosis of diabetes. Reference: Standards of Medical Care in Diabetes 2016, [place] Diabetes Association. Diabetes Care. 2016.39(Suppl 1). Results may be falsely elevated after the administration of Sulfapyridine. Results may be falsely depressed after the administration of Sulfasalazine. Performed By: #### 2 4323-8 #### [facility] CLIA [id number] [address] [place] [address] [place] Potassium [Moles/Vol] 4.7 mmol/L Normal 3.5-5.1 [facility] Comment on above: Order Comment: Leland orozco Type: BLOOD SPECIMEN Ordering Facility: [facility] Address: [address] [place] [address] Performed By: #### 2 4323-8 #### [facility] CLIA [id number] [address] [place] [address] [place] Protein [Mass/Vol] 8.0 g/dL Normal 6.0-8.5 [facility] Comment on above: Order Comment: Leland orozco Type: BLOOD SPECIMEN Ordering Facility: [facility] Address: [address] [place] [address] Performed By: #### 2 4323-8 #### [facility] CLIA [id number] [address] [place] [address] [place] Sodium [Moles/Vol] 140 mmol/L Normal 136-145 [facility] Comment on above: Order Comment: Millyi pam Type: BLOOD SPECIMEN Ordering Facility: [facility] Address: [address] [place] [address] Performed By: #### 2 4323-8 #### [facility] CLIA [id number] [address] [place] [address] [place] Urea nitrogen [Mass/Vol] 26 mg/dL Normal 7-26 [facility] Comment on above: Order Comment: Leland orozco Type: BLOOD SPECIMEN Ordering Facility: [facility] Address: [address] [facility] [place] [address] Performed By: #### 2 4323-8 #### [facility] CLIA [id number] [address] [id number] 08-07-2022 ECG01 Ventricular Rate : 7 2 BPM Atrial Rate : 72 BPM P-R Interval : 140 ms QRS Duration : 82 ms Q-T Interval : 396 ms QTC Calculation(Bazett) : 433 ms Calculated P [place] : 10 degrees Calculated R [place] : 35 degrees Calculated T [place] : 52 degrees Normal sinus rhythm Normal ECG No previous ECGs available Confirmed by GIOVANNA MORALES MD ([id number]) on 08/08/2022 7:33:06 AM NAME : MADDISON RIVERA PID : [id number] : 1945 Gender : Female Race : ORD : [id number] Procedure Date : Aug 07 2022 12:14:19 Edit Date : Aug 08 2022 07:33:08 Diagnosis: Normal sinus rhythm Normal ECG No previous ECGs available Confirmed by GIOVANNA MORALES MD ([id number]) on 08/08/2022 7:33:06 AM Test Reason : [facility] : [facility] Overread By : GIOVANNA MORALES MD Edited By : GIOVANNA MORALES MD Referred By : CHRIS Acquired by : [facility], [facility] HbA1c (Bld)on 08-07-2022 Average glucose Estimated from glycated hemoglobin (Bld) [Mass/Vol] 117 mg/dL [facility] HbA1c (Bld) [Mass fraction] 5.7 % 4.3 - 6.0 % [facility] Average glucose Estimated from glycated hemoglobin (Bld) [Mass/Vol] 117 mg/dL [facility] Comment on above: Order Comment: Leland orozco Type: BLOOD SPECIMEN Ordering Facility: [facility] Address: [address] [place] [address] Result Comment: eAG: (Estimated average glucose) is a calculated value from HgbA1c and is u.s. representative of the average blood glucose level in the last 2-3 month period. Performed By: #### 5 8410-2, 48370-7 #### [facility] CLIA [id number] [address] [place] [address] HbA1c (Bld) [Mass fraction] 5.7 % Normal 4.3-6.0 [facility] Comment on above: Order Comment: Leland orozco Type: BLOOD SPECIMEN Ordering Facility: [facility] Address: [address] [place] [address] Result Comment: [place] Diabetes Association guidelines indicate that patients with HgbA1c in the range 5.7-6.4% are at increased risk for development of diabetes, and intervention by lifestyle modification may be beneficial. HgbA1c greater or equal to 6.5% is considered diagnostic of diabetes. Performed By: #### 5 8410-2, 27053-4 #### [facility] CLIA [id number] [address] [place] [address] Laboratory - Microbiology an d Antimicrobial susceptibilityon 08-07-2022 S. aureus and MRSA panel JAYASHREE+probe (Nose) Negative Negative [facility] No Panel Informationon 08-07 [facility] PT panel Coag (PPP)on 2022 INR Coag (PPP) [Relative time] 1.0 {INR} Normal 0.9-1.3 [facility] Comment on above: Order Comment: Leland orozco Type: BLOOD SPECIMEN Ordering Facility: [facility] Address: [address] [place], [place] [address] Result Comment: Magalys min K Antagonist (VKA) Therapeutic Range: INR 2 to 3 (Target INR of 2.5) Note: For patients treated with VKA drugs, such as warfarin, the [place] [employer] 2012 Guideline recommends a therapeutic INR range of 2 to 3 (target INR of 2.5). This recommendation includes high-risk patients with antiphospholipid syndrome with previous arterial or venous thromboembolism, current-generation mechanical or bioprosthetic aortic heart valve replacement. Note: Patients with mechanical aortic valve replacement and additional risk factors for thromboembolic events (atrial fibrillation, previous thromboembolism, LV dysfunction, hypercoagulable conditions) or an older generation mechanical AVR (i.e., ball in-Cage) or any mechanical MVR should have a INR therapeutic range of 2.5 to 3.5 (target INR of 3). Magnus GH, et al. Chest 2012, 141:7S-47S Kavin RA, et al. [facility] 2017, 70: 252-289 Performed By: #### 3 4528-0, 29684-6 #### [facility] CLIA [id number] [address] [place] [address] OF [facility] PT Coag (PPP) [Time] 10.3 s Normal 9.7-13.0 [facility] Comment on above: Order Comment: Speci men Type: BLOOD SPECIMEN Ordering Facility: [facility] Address: [address] [place] [address] Performed By: #### 3 4528-0, 09687-4 #### [facility] CLIA [id number] [address] [place] [address] INR Coag (PPP) [Relative time] 1.0 {INR} 0.9 - 1.3 [facility] PT Coag (PPP) [Time] 10.3 s 9.7 - 1 3.0 sec [facility] STAPH AUREUS PCRon 3 S. aureus and MRSA panel JAYASHREE+probe (Nose) Normal Negative [facility] Comment on above: Order Comment: Speci men Type: SWAB OF INTERNAL NOSE Ordering Facility: [facility] Address: [address] [place] [address] Result Comment: Nega tive for Staphylococcus aureus by PCR. Negative for MRSA by PCR Performed By: #### S APCR #### [facility] CLIA [id number] [address] [place] [address] TYPE AND SCREEN,30 DAYon ABO O Normal [facility] Comment on above: Order Comment: Speci men Type: BLOOD SPECIMEN Ordering Facility: [facility] Address: [address] [place] [address] Performed By: #### T SCR30 #### [facility] CLIA [id number] [address] [place] [address] HIstorical Ab Scr Status Negative Normal [facility] Comment on above: Order Comment: Speci men Type: BLOOD SPECIMEN Ordering Facility: [facility] Address: [address] [place] [place] [address] Performed By: #### T SCR30 #### [facility] CLIA [id number] [address] [place] [address] Rh Nom (Bld) Positive Normal [facility] Comment on above: Order Comment: Speci men Type: BLOOD SPECIMEN Ordering Facility: [facility] Address: [address] [place] [id number] Performed By: #### T SCR30 #### [facility] CLIA [id number] [address] [place] [address] XR CHEST 2V FRONTAL/LATon XR CHEST 2V FRONTAL/LAT * * *Final Report* * * DATE OF EXAM: Aug 07 2022 2:47PM RHX [id number] - XR CHEST 2V FRONTAL/LAT / PROCEDURE REASON: Hypertension, unspecified type * * * * Physician Interpretation * * * * EXAMINATION: CHEST RADIOGRAPH (2 VIEW FRONTAL and LATERAL) CLINICAL HISTORY: Hypertension, unspecified type MQ: [id number]_6 EXAM DATE/TIME: 08/07/2022 2:47 PM COMPARISON: No relevant prior studies available. RESULT: Lines, tubes, and devices: None. Lungs and pleura: No consolidation. No lung mass. No pleural effusion. No pneumothorax. Linear atelectasis left lower lobe.. Cardiomediastinal silhouette: Normal cardiomediastinal silhouette. Bones and soft tissues: Surgical clips left anterior chest wall. Degenerative change within the spine. IMPRESSION: No acute radiographic abnormality. 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PSCB Transcribe Date/Time: Aug 07 2022 2:49P Dictated by : IRA HILL MD This examination was interpreted and the report reviewed and electronically signed by: IRA HILL MD on Aug 07 2022 2:50PM EST [id number] Normal [facility] aPTT PPPon 08-07-2022 aPTT Coag (PPP) [Time] 21.6 s Low 23.0-32.4 [facility] Comment on above: Order Comment: Leland orozco Type: BLOOD SPECIMEN Ordering Facility: [facility] Address: [address], [place] [address] Result Comment: Ther apeutic Heparin Reference Range: High Dose: 46-75 seconds (DVT/PE) Low Dose: 39-60 seconds (Acute Coronary Syndrome) For low molecular weight heparin or danaparoid, monitoring is often NOT necessary, but the heparin assay, Xa inhibition assay (send out) may be used in certain circumstances, as the PTT is generally insensitive to the effect of these agents. Direct thrombin inhibitors are becoming more widely utilized and these drugs are often monitored using the PTT. Performed By: #### 3 4528-0, 56500-4 #### [facility] CLIA [id number] [address] [place], [place] [id number] [place] Basophil percentageOrdered B y: Dr. Peters on 05-12-2022 Cholesterol [Mass/Vol] 255 mg/dL <200 [facility] Comment on above: <200 mg/dL Desirable 200-240 mg/dL Borderline >240 mg/dL High Risk Triglyceride [Mass/Vol] 142 mg/dL <199 [facility] Comment on above: The drugs N-Acetylcy steine and Metamizole may falsely depress this assay.Serum Triglycerides Reference Interval Normal <150 mg/dL Borderline high 150 - 199 mg/dL High 200 - 499 mg/dL Very High > or = 500 mg/dL Serum or plasma cholesterol in HDL measurement (mass/volume)Ordered By: Dr. Peters on 05-12-2022 Cholesterol in HDL [Mass/Vol] 56 mg/dL >40 [facility] Comment on above: The drugs N-Acetylcy steine and Metamizole may falsely depress this assay. Reference Range HDL <40 mg/dL Low HDL Cholesterol HDL >or= 60 mg/dL High HDL Cholesterol Serum or plasma cholesterol in VLDL measurement (mass/volume)Ordered By: Dr. Peters on 05-12-2022 Cholesterol in VLDL [Mass/Vol] 28 mg/dL 5-40 [facility] Serum or plasma low density lipoprotein (LDL) cholesterol measurement (mass/volume)Ordered By: Dr. Peters on 05-12-2022 Cholesterol in LDL [Mass/Vol] 171 mg/dL 0-130 [facility] Basophil percentageOrdered B y: Dr. Peters on 03-01-2022 Chloride [Moles/Vol] 104 mmol/L 98-107 [facility] Cholesterol [Mass/Vol] 268 mg/dL <200 [facility] Comment on above: <200 mg/dL Desirable 200-240 mg/dL Borderline >240 mg/dL High Risk Glucose [Mass/Vol] 86 mg/dL 74-106 [facility] Potassium [Moles/Vol] 4.0 mmol/L 3.5-5.[address] [facility] Sodium [Moles/Vol] 138 mmol/L 136-145 [facility] Triglyceride [Mass/Vol] 161 mg/dL <199 [facility] Comment on above: The drugs N-Acetylcy steine and Metamizole may falsely depress this assay.Serum Triglycerides Reference Interval Normal <150 mg/dL Borderline high 150 - 199 mg/dL High 200 - 499 mg/dL Very High > or = 500 mg/dL Laboratory - Chemistry and C hemistry - challengeOrdered By: Dr. Peters on 03-01-2022 CO2 [Moles/Vol] 27.0 mmol/L 21.0-32.0 [facility] Urea nitrogen/Creatinine [Mass ratio] 23.8 mg/mg 10-20 [facility] No Panel InformationOrdered By: Dr. Peters on 03-01-2022 Estimated GFR (MDRD) Amer 72 mL/min >60 [facility] Comment on above: GFR Calc Estimated GFR (MDRD) Non-Af Amer 60 mL/min >60 [facility] Comment on above: Non- GFR Calc Thyroid Stimulating Hormone (TSH) 2.50 uIU/mL 0.358-3.74 [facility] Serum or plasma calcium iris urement (mass/volume)Ordered By: Dr. Peters on 03-01-2022 Calcium [Mass/Vol] 9.6 mg/dL 8.5-10.1 [facility] Serum or plasma cholesterol in HDL measurement (mass/volume)Ordered By: Dr. Peters on 03-01-2022 Cholesterol in HDL [Mass/Vol] 55 mg/dL >40 [facility] Comment on above: The drugs N-Acetylcy steine and Metamizole may falsely depress this assay. Reference Range HDL <40 mg/dL Low HDL Cholesterol HDL >or= 60 mg/dL High HDL Cholesterol Serum or plasma cholesterol in VLDL measurement (mass/volume)Ordered By: Dr. Peters on 03-01-2022 Cholesterol in VLDL [Mass/Vol] 32 mg/dL 5-40 [facility] Serum or plasma creatinine m easurement (mass/volume)Ordered By: Dr. Peters on 03-01-2022 Creatinine [Mass/Vol] 0.97 mg/dL 0.55-1.[address] [facility] Comment on above: The validity of the calculated GFR & GFRAA in patients over 70 years has not been determined. Clinical correlation is essential. Serum or plasma low density lipoprotein (LDL) cholesterol measurement (mass/volume)Ordered By: Dr. Peters on 03-01-2022 Cholesterol in LDL [Mass/Vol] 181 mg/dL 0-130 [facility] Serum or plasma urea nitroge n measurement (mass/volume)Ordered By: Dr. Peters on 03-01-2022 Urea nitrogen [Mass/Vol] 23 mg/dL 7-18 [facility] Thin prep Papanicolaou smear with manual screeningOrdered By: Dr. Peters on 03-01-2022 Thin prep Papanicolaou smear with manual screening 7 5-15 [facility] CNPNon 07-01-2021 CNPN Telephone (RHBATH) ----- MADDISON RIVERA ([id number]) 1945 F Date Time Provider Department 07/01/21 IRASEMA VELA During your visit today, we recorded the following information about you: Dalton Villa LPN 07/01/2021 2:23 PM Signed ----- Message from Irasema Vela MD sent at 06/28/2021 12:39 PM EDT ----- Osteopenia on bmd - continue ca - vit d Dalton Villa LPN 07/01/2021 2:27 PM Signed Patient notified and verbalized understanding. Patient states she has not been called about an appt with Pain Management. Number given for Doctor Referral line, . Daltonconor Villa LPN Allergies As of Date: 07/01/2021 Noted Allergy Reaction CLINDAMYCIN 07/20/2015 2 - Rash 9 - Itching 14 - Other: See Comments Comments: High Fever BETADINE (POVIDONE-IODINE) 09/29/2019 2 - Rash CHLORHEXIDINE 05/06/2021 9 - Itching ERYTHROMYCIN BASE 05/06/2021 4 - Hives FENTANYL 05/06/2021 16 - Unknown GEMFIBROZIL 01/07/2010 8 - GI Upset 11 - Vomiting 14 - Other: See Comments Comments: Nausea HYDROMORPHONE 11/08/2011 6 - Diarrhea 11 - Vomiting 14 - Other: See Comments Comments: Nausea IODINATED CONTRAST MEDIA 06/25/2019 2 - Rash LATEX 05/06/2021 2 - Rash MACRODANTIN (NITROFURANTOIN MACRO*07/03/2006 8 - GI Upset MOBIC (MELOXICAM) 11/06/2011 14 - Other: See Comments Comments: Nausea MORPHINE 07/03/2006 6 - Diarrhea 11 - Vomiting NITROFURANTOIN 05/06/2021 11 - Vomiting PENICILLINS 07/03/2006 4 - Hives PREDNISONE 07/03/2006 16 - Unknown OCNAQQX-YQN-FUU REDUCTASE INHIBIT*05/06/2021 14 - Other: See Comments Comments: Myalgias SULFA (SULFONAMIDE ANTIBIOTICS) 07/03/2006 14 - Other: See Comments Comments: Unknown - occurred during childhood ZINC 05/06/2021 8 - GI Upset ZOSTAVAX (ZOSTER VACCINE LIVE (PF*06/10/2007 11 - Vomiting 14 - Other: See Comments Comments: Pt developed a rash on 06-10-07 within ten minutes of the injection. It involved the arms, chest and legs. It was intensely pruritic. Date Reviewed: 05/06/2021 Reviewed by: Lashawn Corona MA - Fully Assessed Reason for Visit: Results [95] Prescriptions as of 07/01/2021 - lisinopril (ZESTRIL, PRINIVIL) 10 mg tablet Take 10 mg by mouth once daily. - predniSONE (DELTASONE) 10 mg tablet Take 10 mg by mouth once daily as needed. - evolocumab (REPATHA PUSHTRONEX) 420 mg/3.5 mL Inject subcutaneously once every month. - vitamin D3-folic acid 5,000 unit- 1 mg tab Take by mouth. - doxycycline hyclate (VIBRAMYCIN) 100 mg capsule - levothyroxine (SYNTHROID) 50 mcg tablet Take 50 mcg by mouth once daily. - Cholecalciferol, Vitamin D3, 2,000 unit cap Take 6,000 Units by mouth once daily. - coenzyme Q10 (CO Q-10) 100 mg cap Take 1 capsule by mouth once daily. - rosuvastatin (CRESTOR) 20 mg tablet Take 0.5 tablets by mouth once daily. - atorvastatin 20 mg tablet Take 1 tablet by mouth once daily. - Mico-3 Fatty Acids (FISH OIL) 500 mg Cap Take by mouth once daily. Takes 600 mg pill daily - triamcinolone acetonide 0.1 % TOPICAL cream Apply 1 application to affected area three times daily as needed. - lisinopril 5 mg ORAL tablet Take 1 tablet by mouth once daily. - Aspirin 81 mg ORAL Tab Take one(1) tablet daily. Problem List As Of Date 07/01/2021 Noted Resolved SENILE OSTEOPOROSIS [M81.0] 08/06/2006 Pure hypercholesterolemia [E78.00] 08/06/2006 UNSP ABNORMAL MAMMOGRAM [R92.8] 10/25/2006 HEADACHE [R51] 12/13/2006 DIFF CONNECT TIS DIS NOS [M35.9] 12/13/2006 HERPES ZOSTER NOS [B02.9] 12/13/2006 VITAMIN D DEFICIENCY NOS [E55.9] 02/22/2007 Unspecified essential hypertension [I10] 02/22/2007 CATARACT NOS [H26.9] 05/27/2007 DIFFUS CYSTIC MASTOPATHY [N60.19] 02/06/2008 Pain in limb [M79.609] 05/17/2010 11/08/2011 Abnormality of gait [R26.9] 05/17/2010 Encounter Status:Closed by DALTON VILLA on 07/01/21 [facility] 05-13-2021 ANAN Telephone ([employer]) ----- MADDISON RIVERA ([id number]) 1945 F Date Time Provider Department 05/13/21 IRASEMA VELA During your visit today, we recorded the following information about you: Dalton Villa LPN 05/13/2021 4:06 PM Signed Patient called to make sure her BMD results were faxed to the office. Patient would like to know if she can have the results over the phone. XIN Mae MD 05/16/2021 11:55 AM Signed Osteopenia. Advise Michael Staples Can discuss in details during a visit. Dalton Villa LPN 05/17/2021 10:53 AM Signed Patient notified and verbalized understanding. Confirmed appt below: 05/31/2021 12:20 PM Irasema Vela MD [facility] Dalton Villa LPN Allergies As of Date: 05/13/2021 Noted Allergy Reaction CLINDAMYCIN 07/20/2015 2 - Rash 9 - Itching 14 - Other: See Comments Comments: High Fever BETADINE (POVIDONE-IODINE) 09/29/2019 2 - Rash CHLORHEXIDINE 05/06/2021 9 - Itching ERYTHROMYCIN BASE 05/06/2021 4 - Hives FENTANYL 05/06/2021 16 - Unknown GEMFIBROZIL 01/07/2010 8 - GI Upset 11 - Vomiting 14 - Other: See Comments Comments: Nausea HYDROMORPHONE 11/08/2011 6 - Diarrhea 11 - Vomiting 14 - Other: See Comments Comments: Nausea IODINATED CONTRAST MEDIA 06/25/2019 2 - Rash LATEX 05/06/2021 2 - Rash MACRODANTIN (NITROFURANTOIN MACRO*07/03/2006 8 - GI Upset MOBIC (MELOXICAM) 11/06/2011 14 - Other: See Comments Comments: Nausea MORPHINE 07/03/2006 6 - Diarrhea 11 - Vomiting NITROFURANTOIN 05/06/2021 11 - Vomiting PENICILLINS 07/03/2006 4 - Hives PREDNISONE 07/03/2006 16 - Unknown QFQODNP-FPS-DYQ REDUCTASE INHIBIT*05/06/2021 14 - Other: See Comments Comments: Myalgias SULFA (SULFONAMIDE ANTIBIOTICS) 07/03/2006 14 - Other: See Comments Comments: Unknown - occurred during childhood ZINC 05/06/2021 8 - GI Upset ZOSTAVAX (ZOSTER VACCINE LIVE (PF*06/10/2007 11 - Vomiting 14 - Other: See Comments Comments: Pt developed a rash on 06-10-07 within ten minutes of the injection. It involved the arms, chest and legs. It was intensely pruritic. Date Reviewed: 05/06/2021 Reviewed by: Lashawn Corona MA - Fully Assessed Reason for Visit: Patient Question [8277] Prescriptions as of 05/17/2021 - lisinopril (ZESTRIL, PRINIVIL) 10 mg tablet Take 10 mg by mouth once daily. - predniSONE (DELTASONE) 10 mg tablet Take 10 mg by mouth once daily as needed. - evolocumab (REPATHA PUSHTRONEX) 420 mg/3.5 mL Inject subcutaneously once every month. - vitamin D3-folic acid 5,000 unit- 1 mg tab Take by mouth. - doxycycline hyclate (VIBRAMYCIN) 100 mg capsule - levothyroxine (SYNTHROID) 50 mcg tablet Take 50 mcg by mouth once daily. - Cholecalciferol, Vitamin D3, 2,000 unit cap Take 6,000 Units by mouth once daily. - coenzyme Q10 (CO Q-10) 100 mg cap Take 1 capsule by mouth once daily. - rosuvastatin (CRESTOR) 20 mg tablet Take 0.5 tablets by mouth once daily. - atorvastatin 20 mg tablet Take 1 tablet by mouth once daily. - Mico-3 Fatty Acids (FISH OIL) 500 mg Cap Take by mouth once daily. Takes 600 mg pill daily - triamcinolone acetonide 0.1 % TOPICAL cream Apply 1 application to affected area three times daily as needed. - lisinopril 5 mg ORAL tablet Take 1 tablet by mouth once daily. - Aspirin 81 mg ORAL Tab Take one(1) tablet daily. Problem List As Of Date 05/13/2021 Noted Resolved SENILE OSTEOPOROSIS [M81.0] 08/06/2006 Pure hypercholesterolemia [E78.00] 08/06/2006 UNSP ABNORMAL MAMMOGRAM [R92.8] 10/25/2006 HEADACHE [R51] 12/13/2006 DIFF CONNECT TIS DIS NOS [M35.9] 12/13/2006 HERPES ZOSTER NOS [B02.9] 12/13/2006 VITAMIN D DEFICIENCY NOS [E55.9] 02/22/2007 Unspecified essential hypertension [I10] 02/22/2007 CATARACT NOS [H26.9] 05/27/2007 DIFFUS CYSTIC MASTOPATHY [N60.19] 02/06/2008 Pain in limb [M79.609] 05/17/2010 11/08/2011 Abnormality of gait [R26.9] 05/17/2010 Encounter Status:Closed by DALTON VILLA on 05/13/21 Normal [facility] MASOOD BY IFA SCREENon 05-07-19 Nuclear Ab IF (S) [Titer] Negative Normal Negative [facility] Comment on above: Order Comment: Speci men Type: BLOOD SPECIMENOrdering Facility: [facility] Address: [address] [place] [address] Result Comment: Anti -nuclear antibody test is used as an aid in diagnosis of systemic autoimmune diseases. Where positive and clinically warranted, follow-up using disease-specific testing is recommended. Low positive titers are not uncommon with advanced age, certain chronic infections, and malignancies among others. Test methodology: Indirect fluorescence immunoassay (IFA) using HEp-2 cells. Performed By: #### A NAIFS ####[facility] LABIA [id number] [place] [address] [place] BLOOD TB SCREEN, INCUBATEDon 05-06-2021 M. tuberculosis tuberculin stim IFN-g Ql (Bld) Negative Normal [facility] Comment on above: Order Comment: Speci men Type: BLOOD SPECIMENOrdering Facility: [facility] Address: [address] [place], [place] [id number] Performed By: #### I NTPGP ####[facility]IA [id number] [place] [address] [place] MITOGEN MINUS NIL >10.00 Normal >=0.50 [facility] Comment on above: Order Comment: Speci men Type: BLOOD SPECIMENOrdering Facility: [facility] Address: [address] [place] [address] Performed By: #### I NTPGP ####[facility] [id number] [address] [place] TB GAMMA INTERPRETATION Infection with M. tuberculosis complex is unlikely. If latent tuberculosis infection is highly suspected, a negative result does not rule out the infection. Specimens from immunocompromised patients and those <5 years of age may show false negative results. In case of a contact investigation, please repeat 8-12 weeks after a known exposure. Normal [facility] Comment on above: Order Comment: Speci men Type: BLOOD SPECIMENOrdering Facility: [facility] Address: [address] [place] [address] Performed By: #### I NTPGP ####[facility] [id number] [address] TB NIL 0.00 IU/mL Normal <=8.00 [facility] Comment on above: Order Comment: Speci men Type: BLOOD SPECIMENOrdering Facility: [facility] Address: [address] [place] [address] Performed By: #### I NTPGP ####[facility] LABCLIA [id number] [address] [place] TB1 AG MINUS NIL 0.00 IU/mL Normal <0.35 [facility] Comment on above: Order Comment: Speci men Type: BLOOD SPECIMENOrdering Facility: [facility] Address: [address] [place], [place] [address] Performed By: #### I NTPGP ####[facility] [id number] [address] [place] TB2 AG MINUS NIL 0.00 IU/mL Normal <0.35 [facility] Comment on above: Order Comment: Speci men Type: BLOOD SPECIMENOrdering Facility: [facility] Address: [address] [place], [place] [address] Performed By: #### I NTPGP ####[facility] LABCLIA [id number] [facility] [id number] [place] CBC W Auto Differential pane l (Bld)on 05-06-2021 Basophils (Bld) [#/Vol] 0.07 10*3/uL Normal <0.11 [facility] Comment on above: Order Comment: Speci men Type: BLOOD SPECIMEN [facility] Address: [address] [address] Performed By: #### 5 7021-8 #### [facility] CLIA [id number] [address] STATES [facility] Basophils/100 WBC (Bld) 0.7 % Normal [facility] Comment on above: Order Comment: Speci men Type: BLOOD SPECIMEN [facility] Address: [address] [place] [address] Performed By: #### 5 7021-8 #### [facility] CLIA [id number] [address] [place] [address] Differential cell count method Nom (Bld) Auto Normal [facility] Comment on above: Order Comment: Speci men Type: BLOOD SPECIMEN [facility] Address: [address] [place] [address] Performed By: #### 5 7021-8 #### [facility] CLIA [id number] [address] [place] Eosinophils (Bld) [#/Vol] 0.08 10*3/uL Normal <0.46 [facility] Comment on above: Order Comment: Speci men Type: BLOOD SPECIMEN [facility] Address: [address] [place] [address] Performed By: #### 5 7021-8 #### [facility] CLIA [id number] [address] [place] Eosinophils/100 WBC (Bld) 0.8 % Normal [facility] Comment on above: Order Comment: Speci men Type: BLOOD SPECIMEN [facility] Address: [address] [place] [address] Performed By: #### 5 7021-8 #### [facility] CLIA [id number] [address] OF [facility] Erythrocyte distribution width (RBC) [Ratio] 13.7 % Normal 11.5-15.0 [facility] Comment on above: Order Comment: Speci men Type: BLOOD SPECIMEN [facility] Address: [address] [place] [address] Performed By: #### 5 7021-8 #### [facility] CLIA [id number] [address] Hematocrit (Bld) [Volume fraction] 45.8 % Normal 36.0-46.0 [facility] Comment on above: Order Comment: Speci men Type: BLOOD SPECIMEN [facility] Address: [address] [place] [address] Performed By: #### 5 7021-8 #### [facility] CLIA [id number] [address] OF [facility] Hemoglobin (Bld) [Mass/Vol] 14.2 g/dL Normal 11.5-15.5 [facility] Comment on above: Order Comment: Speci men Type: BLOOD SPECIMEN [facility] Address: [address] [place] [address] Performed By: #### 5 7021-8 #### [facility] CLIA [id number] [address] IMMATURE GRAN % 0.7 % Normal [facility] Comment on above: Order Comment: Speci men Type: BLOOD SPECIMEN [facility] Address: [address] [place] [address] Performed By: #### 5 7021-8 #### [facility] CLIA [id number] [address] IMMATURE GRAN ABS 0.07 k/uL Normal <0.10 [facility] Comment on above: Order Comment: Speci men Type: BLOOD SPECIMEN [facility] Address: [address] [place] [address] Performed By: #### 5 7021-8 #### [facility] CLIA [id number] [address] Lymphocytes (Bld) [#/Vol] 0.94 10*3/uL Low 1.00-4.00 [facility] Comment on above: Order Comment: Speci men Type: BLOOD SPECIMEN [facility] Address: [address] [place] [address] Performed By: #### 5 7021-8 #### [facility] CLIA [id number] [address] Lymphocytes/100 WBC (Bld) 9.5 % Normal [facility] Comment on above: Order Comment: Speci men Type: BLOOD SPECIMEN [facility] Address: [address] [place] [address] Performed By: #### 5 7021-8 #### [facility] CLIA [id number] [address] MCH (RBC) [Entitic mass] 29.8 pg Normal 26.0-34.0 [facility] Comment on above: Order Comment: Speci men Type: BLOOD SPECIMEN [facility] Address: [address] [place] [address] Performed By: #### 5 7021-8 #### [facility] CLIA [id number] [address] MCHC (RBC) [Mass/Vol] 31.0 g/dL Normal 30.5-36.0 [facility] Comment on above: Order Comment: Speci men Type: BLOOD SPECIMEN [facility] Address: [address] [place] [address] Performed By: #### 5 7021-8 #### [facility] CLIA [id number] [address] [place] MCV (RBC) [Entitic vol] 96.2 fL Normal 80.0-100.0 [facility] Comment on above: Order Comment: Speci men Type: BLOOD SPECIMEN [facility] Address: [address] [place] [address] Performed By: #### 5 7021-8 #### [facility] CLIA [id number] [address] [place] Monocytes (Bld) [#/Vol] 0.22 10*3/uL Normal <0.87 [facility] Comment on above: Order Comment: Speci men Type: BLOOD SPECIMEN [facility] Address: [address] [place] [address] Performed By: #### 5 7021-8 #### [facility] CLIA [id number] [address] Monocytes/100 WBC (Bld) 2.2 % Normal [facility] Comment on above: Order Comment: Speci men Type: BLOOD SPECIMEN [facility] Address: [address] [place] [address] Performed By: #### 5 7021-8 #### [facility] CLIA [id number] [address] [place] Neutrophils (Bld) [#/Vol] 8.49 10*3/uL High 1.45-7.50 [facility] Comment on above: Order Comment: Speci men Type: BLOOD SPECIMEN [facility] Address: [address] [place] [address] Performed By: #### 5 7021-8 #### [facility] CLIA [id number] [address] [place] Neutrophils/100 WBC (Bld) 86.1 % Normal [facility] Comment on above: Order Comment: Speci men Type: BLOOD SPECIMEN [facility]: [facility] Address: [address] Performed By: #### 5 7021-8 #### [facility] CLIA [id number] [address] [place] Nucleated RBC (Bld) [#/Vol] 10*3/uL Normal <0.01 [facility] Comment on above: Order Comment: Speci men Type: BLOOD SPECIMEN [facility] Address: [address] [address] Performed By: #### 5 7021-8 #### [facility] CLIA [id number] [address] [place] Nucleated RBC/100 WBC (Bld) [Ratio] 0.0 /100 WBC Normal [facility] Comment on above: Order Comment: Speci men Type: BLOOD SPECIMEN [facility] Address: [address] [place] [address] Performed By: #### 5 7021-8 #### [facility] CLIA [id number] [address] [place] Platelet mean volume (Bld) [Entitic vol] 12.5 fL Normal 9.0-12.7 [facility] Comment on above: Order Comment: Speci men Type: BLOOD SPECIMEN Order[facility] Facility[facility] Address: [address] [place] [address] Performed By: #### 5 7021-8 #### [facility] CLIA [id number] [address] [place] Platelets (Bld) [#/Vol] 290 10*3/uL Normal 150-400 [facility] Comment on above: Order Comment: Speci men Type: BLOOD SPECIMEN [facility] Address: [address] [place] [address] Performed By: #### 5 7021-8 #### [facility] CLIA [id number] [address] [place] RBC (Bld) [#/Vol] 4.76 10*6/uL Normal 3.90-5.20 [facility] Comment on above: Order Comment: Speckathleen pam Type: BLOOD SPECIMEN [facility] Address: [address] [place] [address] Performed By: #### 5 7021-8 #### [facility] CLIA [id number] [address] WBC (Bld) [#/Vol] 9.87 10*3/uL Normal 3.70-11.00 [facility] Comment on above: Order Comment: Leland orozco Type: BLOOD SPECIMEN [facility] Address: [address] [place] [address] Performed By: #### 5 7021-8 #### [facility] CLIA [id number] [address] CNOVon 05-06-2021 CNOV Office Visit (RHBATH ) ----- MADDISON RIVERA ([id number]) 1945 F Date Time Provider Department 05/06/21 8:20 AM IRASEMA VELA During your visit today, we recorded the following information about you: Temperature Pulse Blood pressure Weight 97.2 degrees 95/minute 124/80 76.2 kg Height 1.702 m Irasema Vela MD 05/07/2021 9:59 AM Signed RHEUMATOLOGY NEW PATIENT NOTE REFERRING PHYSICIAN: Self CHIEF COMPLAINT: Patient presents with: New Patient: Review conditions HPI: Maddison Rivera is a 75 year old female who presents with joint pain H/o UCTD, on MTX, Plaquenil. Side effects to both. Fracture hip. Neg MASOOD, RF. Simponi was discussed. She was seeing Dr. Eric. She was diagnosed with RA 2020 - everything hurts chronic x 30 years. She was diagnosed with [address] Dr. Benavidez with lupus (rash on face) and was on Plaquenil. She takes prednisone 10 mg as needed (1-2 /week). H/o steroid induced psychosis with higher doses. Gelling phenomenon, cannot close fingers, neck pain, hip pain, feet. She takes Excedrin prn, naproxen prn. Never been to pain management clinic. Dec fell and had fracture elbow, shoulder. left breast cancer diagnosed 04/2013. She underwent left breast mastectomy with immediate TRAM flap reconstruction with Dr. Mercado and Dr. Link at that time. 2/2 lymph nodes negative for carcinoma. Marisol Achilles tendon replacement Family history of autoimmune disease: grandmother may have had RA? Smoking status: Tobacco Use: Never Rheumatology REVIEW OF SYSTEMS: Constitutional: Recent Weight Change: No Fatigue: No Fever: No Night sweats: No Heent: Alopecia: No H/o Inflammatory eye disease (iritis/scleritis): No Hearing loss: No Frequent sinusitis: No Oral ulcers: No Sicca: YES dry eyes Parotid swelling: No Hoarseness: No Dysphagia: No Heme/lymph: Lymphadenopathy: No Hematological abnormalities (anemia, thrombocytopenia, leukopenia): No Abnormal bleeding: No Skin: Malar or discoid lesions: No Photosensitivity: YES Other rashes: No Raynaud's phenomenon: YES Hives: No Tightness: No Nodules/bumps: No Easy Bruising: No Nail changes: No H/o psoriasis: No Gastroenterology: Nausea: {YES Vomiting: No Change in bowel movements: No Heartburn: No Respiratory: Dry cough/SOB: No Cardiovascular: Pain in chest: No Musculoskeletal: Per HPI Joint pain or swelling: No Prolonged morning stiffness: No Back pain or neck pain: No Muscle weakness: No Genitourinary: Vaginal dryness: No Rash/ulcers: No Neurological: Headaches: YES occasional Sensitivity or pain of hands and/or feet: YES tingling Psychiatry: Anxiety: YES Depression: No Poor sleep: YES lately well H/o loss: No H/o thrombosis: No Increased susceptibility to infection: No PAST MEDICAL HISTORY Diagnosis Date - Closed fracture of shaft of fibula with tibia 05/17/2010 - HYPERTENSION NOS 02/22/2007 only had elevated BP a couple times when saw Dr. Mijares - PURE HYPERCHOLESTEROLEM 08/06/2006 - Senile osteoporosis 08/06/2006 - Vitamin D deficiency PAST SURGICAL HISTORY Procedure Laterality Date - BREAST LUMPECTOMY HX Left 06/27/2019 - CATARACT SURGERY, COMPLEX 2006 bilateral - LAPAROSCOPY SURG CHOLECYSTECTOMY Cholecystectomy, lap - MASTECTOMY HX Bilateral - OPTX ANKLE DISLOCATION W/REPAIR/INT/XTRNL FIXJ 2011 ORIF Ankle - PAST SURGICAL HISTORY OF age 40 hysterectomy - PAST SURGICAL HISTORY OF achilles tendon replacements - PAST SURGICAL HISTORY OF Left 07/28/2019 revision of Lt breast reconstruction and prophylactic Rt mastectomy - STEREOTACTIC CORE BIOPSY 11/14/06 RIGHT Current Outpatient Medications Medication Sig - lisinopril (ZESTRIL, PRINIVIL) 10 mg tablet Take 10 mg by mouth once daily. - predniSONE (DELTASONE) 10 mg tablet Take 10 mg by mouth once daily as needed. - evolocumab (REPATHA PUSHTRONEX) 420 mg/3.5 mL Inject subcutaneously once every month. - levothyroxine (SYNTHROID) 50 mcg tablet Take 50 mcg by mouth once daily. - vitamin D3-folic acid 5,000 unit- 1 mg tab Take by mouth. (Patient not taking: Reported on 05/06/2021 ) - doxycycline hyclate (VIBRAMYCIN) 100 mg capsule (Patient not taking: Reported on 05/06/2021 ) - Cholecalciferol, Vitamin D3, 2,000 unit cap Take 6,000 Units by mouth once daily. (Patient not taking: Reported on 07/29/2018 ) - coenzyme Q10 (CO Q-10) 100 mg cap Take 1 capsule by mouth once daily. (Patient not taking: Reported on 07/29/2018 ) - rosuvastatin (CRESTOR) 20 mg tablet Take 0.5 tablets by mouth once daily. (Patient not taking: Reported on 05/06/2021 ) - atorvastatin 20 mg tablet Take 1 tablet by mouth once daily. (Patient not taking: Reported on 07/29/2018 ) - Mico-3 Fatty Acids (FISH OIL) 500 mg Cap Take by mouth once daily. Takes 600 mg pill daily (Patient not taking: Reported on more content not included)... Normal [facility] Comprehensive metabolic 2000 panelon 05-06-2021 Albumin [Mass/Vol] 4.4 g/dL Normal 3.9-4.9 [facility] Comment on above: Order Comment: Speci men Type: BLOOD SPECIMENOrdering Facility: [facility] Address: [address] [address] Performed By: #### 2 4323-8, 3083-1 ####[facility] LABORATORYCLIA [id number] [address] ALP [Catalytic activity/Vol] 109 U/L Normal 34-123 [facility] Comment on above: Order Comment: Speci men Type: BLOOD SPECIMENOrdering Facility: [facility] Address: [address] [address] Performed By: #### 2 4323-8, 3083- ####[facility] LABORATORYCLIA [id number] [address] ALT With P-5'-P [Catalytic activity/Vol] 16 U/L Normal 7-38 [facility] Comment on above: Order Comment: Speci men Type: BLOOD SPECIMENOrdering Facility: [facility] Address: [address] [address] Performed By: #### 2 4323-8, 3083- ####[facility] LABORATORYCLIA [id number] [address] Anion gap [Moles/Vol] 14 mmol/L Normal 9-18 [facility] Comment on above: Order Comment: Speci men Type: BLOOD SPECIMENOrdering Facility: [facility] Address: [address] [address] Performed By: #### 2 4323-8, 3083- ####[facility] LABORATORYCLIA [id number] [address] STATES OF [facility] AST With P-5'-P [Catalytic activity/Vol] 25 U/L Normal 13-35 [facility] Comment on above: Order Comment: Speci men Type: BLOOD SPECIMENOrdering Facility: [facility] Address: [address] [address] Performed By: #### 2 4323-8, 3083-1 ####[facility] LABORATORYCLIA [id number] [address] [place] Bilirubin [Mass/Vol] 0.4 mg/dL Normal 0.2-1.3 [facility] Comment on above: Order Comment: Speci men Type: BLOOD SPECIMENOrdering Facility: [facility] Address: [address] [place] [address] Performed By: #### 2 4323-8, 308-1 ####[facility] LABORATORYCLIA [id number] [place] [address] [place] Calcium [Mass/Vol] 9.7 mg/dL Normal 8.5-10.2 [facility] Comment on above: Order Comment: Speci men Type: BLOOD SPECIMENOrdering Facility: [facility] Address: [address] [place] [address] Performed By: #### 2 4323-8, 3083- ####[facility] LABORATORYCLIA [id number] [place] [address] [place] Chloride [Moles/Vol] 101 mmol/L Normal 97-105 [facility] Comment on above: Order Comment: Speci men Type: BLOOD SPECIMENOrdering Facility: [facility] Address: [address] [place] [address] Performed By: #### 2 4323-8, 3083- ####[facility]ORATORYCLIA [id number] [address] [place] CO2 [Moles/Vol] 23 mmol/L Normal 22-30 [facility] Comment on above: Order Comment: Speci men Type: BLOOD SPECIMENOrdering Facility: [facility] Address: [address] [place] [address] Performed By: #### 2 4323-8, 3083-1 ####[facility] LABORATORYCLIA [id number] [place] [address] [place] Creatinine [Mass/Vol] 0.89 mg/dL Normal 0.58-0.96 [facility] Comment on above: Order Comment: Speci men Type: BLOOD SPECIMENOrdering Facility: [facility] Address: [address] [place] [address] Performed By: #### 2 4323-8, 3083-1 ####[facility]ENTERIA [id number] [address] ESTIMATED GLOMERULAR FILTRATION RATE 68 mL/min/1.73m??? Normal >=60 [facility] Comment on above: Order Comment: Leland orozco Type: BLOOD SPECIMENOrdering Facility: [facility] Address: [address] [place] [address] Result Comment: Slaly mated Glomerular Filtration Rate (eGFR) is calculated using the 2020 CKD-EPI creatinine equation. This equation utilizes serum creatinine, sex, and age as parameters. The creatinine assay has traceable calibration to isotope dilution-mass spectrometry. Refer to KDIGO guidelines for clinical interpretation. In patients with unstable renal function, e.g. those with acute kidney injury, the eGFR may not accurately reflect actual GFR. Performed By: #### 2 4323-8, 30805-20 ####[facility] CENTERIA [id number] [place] [address] [place] Glucose [Mass/Vol] 115 mg/dL High 74-99 [facility] Comment on above: Order Comment: Leland orozco Type: BLOOD SPECIMENOrdering Facility: [facility] Address: [address] [place] [address] Result Comment: The [place] Diabetes [employer] (ADA) provides guidance for cutoff values for fasting glucose and random glucose. The ADA defines fasting as no caloric intake for at least 8 hours. Fasting plasma glucose results between 100 to 125 mg/dL indicate increased risk for diabetes (prediabetes). Fasting plasma glucose results greater than or equal to 126 mg/dL meet the criteria for diagnosis of diabetes. In the absence of unequivocal hyperglycemia, results should be confirmed by repeat testing. In a patient with classic symptoms of hyperglycemia or hyperglycemic crisis, random plasma glucose results greater than or equal to 200 mg/dL meet the criteria for diagnosis of diabetes. Reference: Standards of Medical Care in Diabetes 2016, [place] [employer]. Diabetes Care. 2016.39(Suppl 1). Performed By: #### 2 4323-8, 308- ####[facility] LABORATORYCLIA [id number] [place] [address] [place] Potassium [Moles/Vol] 4.0 mmol/L Normal 3.7-5.1 [facility] Comment on above: Order Comment: Speci men Type: BLOOD SPECIMENOrdering Facility: [facility] Address: [address] [place] [address] Performed By: #### 2 4323-8, 3084-1 ####[facility]ORATORYCLIA [id number] [place] [address] [place] Protein [Mass/Vol] 7.6 g/dL Normal 6.3-8.0 [facility] Comment on above: Order Comment: Speci men Type: BLOOD SPECIMENOrdering Facility: [facility] Address: [address] [place] [address] Performed By: #### 2 4323-8, 3084-1 ####[facility]ORATORYCLIA [id number] [place] [address] [place] Sodium [Moles/Vol] 138 mmol/L Normal 136-144 [facility] Comment on above: Order Comment: Speci men Type: BLOOD SPECIMENOrdering Facility: [facility] Address: [address] [place] [address] Performed By: #### 2 4323-8, 3084-1 ####[facility]ORATORYCLIA [id number] [place] [address] [place] Urea nitrogen [Mass/Vol] 17 mg/dL Normal 7-21 [facility] Comment on above: Order Comment: Speci men Type: BLOOD SPECIMENOrdering Facility: [facility] Address: [address] [place] [address] Performed By: #### 2 4323-8, 3084-1 ####[facility] LABORATORYCLIA [id number] [place] [address] [place] Cyclic citrullinated peptide IgG Qnon 05-06-2021 CCP ANTIBODY IGG QUALITATIVE Negative Normal Negative [facility] Comment on above: Order Comment: Speci men Type: BLOOD SPECIMENOrdering Facility: [facility] Address: [address] [place] [address] Performed By: #### 3 3935-8, DNAAB ####[facility] LABCLIA [id number] [address] [place] DNA ANTIBODY DS BLDon 2021 DNA ANTIBODY <12 Normal <30 [facility] Comment on above: Order Comment: Speci men Type: BLOOD SPECIMENOrdering Facility: [facility] Address: [address] [place] [address] Result Comment: Nega tive for ds DNA Anitbodies. <30 IU/mL Negative 30-74 IU/mL Equivocal >74 IU/mL Positive Performed By: #### 3 3935-8, DNAAB ####[facility] LABCLIA [id number] [address] [place] FELICE SM IgG Ser-aCncon 2021 Parr extractable nuclear IgG Qn (S) <0.2 Normal <1.0 [facility] Comment on above: Order Comment: Speci men Type: BLOOD SPECIMENOrdering Facility: [facility] Address: [address] [place] [address] Performed By: #### 1 8323-6 ####[facility] LABCLIA [id number] [address] [place] HBV core Ab Ser Qlon 022 HBV core Ab Ql (S) Negative Normal Negative [facility] Comment on above: Order Comment: Speci men Type: BLOOD SPECIMENOrdering Facility: [facility] Address: [address] [place] [address] Result Comment: No e vidence of current or past infection with Hepatitis B virus. Should recent infection be suspected, repeat testing may be considered 3-4 weeks after this draw. Performed By: #### 1 6933-4 ####[facility] LABCLIA [id number] [address] [place] HBV surface Ab IA Ql (S)on 0 05-06-2021 HBV surface Ag Ql (S) Negative Normal Negative [facility] Comment on above: Order Comment: Speci men Type: BLOOD SPECIMENOrdering Facility: [facility] Address: [address] [place] [address] Performed By: #### 1 0900-9 ####[facility]ORATORYCLIA [id number] [address] [place] HBV surface Ab Ser-aCncon HBV surface Ab Qn (S) 3.47 mIU/mL Normal <10.00 [facility] Comment on above: Order Comment: Speci men Type: BLOOD SPECIMENOrdering Facility: [facility] Address: [address] [place] [address] Result Comment: Aleyda ent is considered not to have protective immunity to HBV infection. Performed By: #### 1 6935-9 ####[facility]ORATORYCLIA [id number] [address] [place] HCV Ab Ser Qlon 05-06-2021 HCV Ab Ql (S) Negative Normal Negative [facility] Comment on above: Order Comment: Millyi men Type: BLOOD SPECIMENOrdering Facility: [facility] Address: [address] [place] [address] Performed By: #### 1 6128-1 ####[facility]ORATORYCLIA [id number] [address] [place] RHEUMATOID FACTOR BLon 05-06 Rheumatoid factor Qn [IU]/mL Normal <16 [facility] Comment on above: Order Comment: Speci men Type: BLOOD SPECIMENOrdering Facility: [facility] Address: [address] [place] [address] Performed By: #### R F ####[facility] LABCLIA [id number] [facility] [id number] [place] [address] [place] Parr extractable nuclear Ig G Qn (S)on 05-06-2021 SM ANTIBODY QUAL Negative Normal Negative [facility] Comment on above: Order Comment: Speci men Type: BLOOD SPECIMENOrdering Facility: [facility] Address: [address] [place] [address] Result Comment: Anti -Sm (Parr) antibody is used as an aid in diagnosis of systemic lupus erythematosus and its presence is associated with renal disease. A negative result cannot rule out systemic lupus erythematosus. Clinical correlation is required. Test Methodology: Multiplex flow immunoassay. Performed By: #### 1 8323-6 ####[facility] LABCLIA [id number] [address] [place] Urate SerPl-mCncon 2 Urate [Mass/Vol] 6.6 mg/dL Normal 2.5-6.6 [facility] Comment on above: Order Comment: Speci men Type: BLOOD SPECIMENOrdering Facility: [facility] Address: [address] [place] [address] Performed By: #### 2 4323-8, 3084-1 ####[facility]IA [id number] [address] [place] VITAMIN D 25 HYDROXYon 05-06 25-hydroxyvitamin D3 [Mass/Vol] 30.5 ng/mL Normal 30.0-100.0 [facility] Comment on above: Order Comment: Speci pam Type: BLOOD SPECIMENOrdering Facility: [facility] Address: [address] [place] [address] Result Comment: Clas sification of 25 [place] Vitamin D status: Deficiency: <= 20.0 ng/ml. Insufficientcy: 21.0-29.0 ng/ml. Sufficiency: >= 30.0 ng/ml. Performed By: #### V ITD ####[facility]ORATORYCLIA [id number] [address] [place] XR CERVICAL 2V AP/LATon 04-19 XR CERVICAL 2V AP/LAT * * *Final Report* * * DATE OF EXAM: May 06 2021 10:40AM AWX [id number] - XR CERVICAL 2V AP/LAT / PROCEDURE REASON: Pain in joint, multiple sites * * * * Physician Interpretation * * * * EXAM: CERVICAL SPINE, 2 VIEWS CLINICAL: 75-year-old female with joint pain TECHNIQUE: AP, lateral, COMPARISON: None RESULTS: Counting reference: Craniocervical junction.. Mild narrowing at C4/C5 moderate narrowing C5/C6 and C6/C7 disc spaces. Osteophytes anteriorly at C3-4 through C7 and uncovertebral osteophytes at C3-C7. Narrowing of facet joints throughout the cervical spine. 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 DIFFUSE FACET DEGENERATIVE CHANGES. 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[employer] Transcribe Date/Time: May 06 2021 11:20A Dictated by : SEE MACKEY MD This examination was interpreted and the report reviewed and electronically signed by: SEE MACKEY MD on May 06 2021 11:22AM EST [id number] Normal [facility] XR FOOT 3V AP/LAT/OBL LTon 0 05-06-2021 XR FOOT 3V AP/LAT/OBL LT * * *Final Report* * * DATE OF EXAM: May 06 2021 10:40AM AWX [id number] - XR FOOT 3V AP/LAT/OBL LT / PROCEDURE REASON: Pain in joint, multiple sites * * * * Physician Interpretation * * * * TECHNIQUE: XR FOOT 3V AP/LAT/OBL RT, XR FOOT 3V AP/LAT/OBL LT, XR HAND 3V PA/LAT/OBL LT, XR HAND 3V PA/LAT/OBL RT EXAM DATE: 05/06/2021 10:40 AM COMPARISON STUDIES: Left hand x-rays 03/23/2011 CLINICAL HISTORY: Pain in joint, multiple sites RESULT: Left foot: Partially seen distal tibial jun. Suture anchor of the calcaneus. No acute fracture or dislocation. Plantar heel spur and Achilles enthesophyte. Nonspecific mineralization and prominence of the distal Achilles tendon. No erosions. Mineralization related to the plantar soft tissues. Right foot: Suture anchor of the calcaneus. Mineralization and thickening related to the distal Achilles tendon. Mild 1st MTP joint degenerative change. No acute fracture or dislocation. No osseous erosions. No appreciable soft tissue swelling. Right hand: Question remote fracture deformity distal radius, and remote ulnar styloid fracture. Moderately advanced 1st CMC, mild/moderate 2nd through 5th finger DIP joint degenerative changes. No osseous erosions. No appreciable soft tissue swelling. Left hand: Moderately advanced triscaphe joint, moderate 1st CMC joint, mild to moderate 2nd through 5th finger DIP joint degenerative changes, progressed from prior. Chronic deformity involving the distal 3rd metacarpal unchanged. No acute fracture or dislocation. No erosions. IMPRESSION: Bilateral feet: Heel spurs. 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[facility] Transcribe Date/Time: May 09 2021 1:15P Dictated by : JUDAH CARDENAS MD This examination was interpreted and the report reviewed and electronically signed by: JUDAH CARDENAS MD on May 09 2021 1:39PM EST [id number] Normal [facility] XR FOOT 3V AP/LAT/OBL RTon 0 05-06-2021 XR FOOT 3V AP/LAT/OBL RT * * *Final Report* * * DATE OF EXAM: May 06 2021 10:40AM AWX [id number] - XR FOOT 3V AP/LAT/OBL RT / PROCEDURE REASON: Pain in joint, multiple sites * * * * Physician Interpretation * * * * TECHNIQUE: XR FOOT 3V AP/LAT/OBL RT, XR FOOT 3V AP/LAT/OBL LT, XR HAND 3V PA/LAT/OBL LT, XR HAND 3V PA/LAT/OBL RT EXAM DATE: 05/06/2021 10:40 AM COMPARISON STUDIES: Left hand x-rays 03/23/2011 CLINICAL HISTORY: Pain in joint, multiple sites RESULT: Left foot: Partially seen distal tibial jun. Suture anchor of the calcaneus. No acute fracture or dislocation. Plantar heel spur and Achilles enthesophyte. Nonspecific mineralization and prominence of the distal Achilles tendon. No erosions. Mineralization related to the plantar soft tissues. Right foot: Suture anchor of the calcaneus. Mineralization and thickening related to the distal Achilles tendon. Mild 1st MTP joint degenerative change. No acute fracture or dislocation. No osseous erosions. No appreciable soft tissue swelling. Right hand: Question remote fracture deformity distal radius, and remote ulnar styloid fracture. Moderately advanced 1st CMC, mild/moderate 2nd through 5th finger DIP joint degenerative changes. No osseous erosions. No appreciable soft tissue swelling. Left hand: Moderately advanced triscaphe joint, moderate 1st CMC joint, mild to moderate 2nd through 5th finger DIP joint degenerative changes, progressed from prior. Chronic deformity involving the distal 3rd metacarpal unchanged. No acute fracture or dislocation. No erosions. IMPRESSION: Bilateral feet: Heel spurs. 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[employer] Transcribe Date/Time: May 09 2021 1:15P Dictated by : JUDAH CARDENAS MD This examination was interpreted and the report reviewed and electronically signed by: JUDAH CARDENAS MD on May 09 2021 1:39PM EST [id number] Normal [facility] XR HAND 3V PA/LAT/OBL LTon 0 05-06-2021 XR HAND 3V PA/LAT/OBL LT * * *Final Report* * * DATE OF EXAM: May 06 2021 10:40AM [id number] [id number] - XR HAND 3V PA/LAT/OBL LT / PROCEDURE REASON: Pain in joint, multiple sites * * * * Physician Interpretation * * * * TECHNIQUE: XR FOOT 3V AP/LAT/OBL RT, XR FOOT 3V AP/LAT/OBL LT, XR HAND 3V PA/LAT/OBL LT, XR HAND 3V PA/LAT/OBL RT EXAM DATE: 05/06/2021 10:40 AM COMPARISON STUDIES: Left hand x-rays 03/23/2011 CLINICAL HISTORY: Pain in joint, multiple sites RESULT: Left foot: Partially seen distal tibial jun. Suture anchor of the calcaneus. No acute fracture or dislocation. Plantar heel spur and Achilles enthesophyte. Nonspecific mineralization and prominence of the distal Achilles tendon. No erosions. Mineralization related to the plantar soft tissues. Right foot: Suture anchor of the calcaneus. Mineralization and thickening related to the distal Achilles tendon. Mild 1st MTP joint degenerative change. No acute fracture or dislocation. No osseous erosions. No appreciable soft tissue swelling. Right hand: Question remote fracture deformity distal radius, and remote ulnar styloid fracture. Moderately advanced 1st CMC, mild/moderate 2nd through 5th finger DIP joint degenerative changes. No osseous erosions. No appreciable soft tissue swelling. Left hand: Moderately advanced triscaphe joint, moderate 1st CMC joint, mild to moderate 2nd through 5th finger DIP joint degenerative changes, progressed from prior. Chronic deformity involving the distal 3rd metacarpal unchanged. No acute fracture or dislocation. No erosions. IMPRESSION: Bilateral feet: Heel spurs. 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[employer] Transcribe Date/Time: May 09 2021 1:15P Dictated by : JUDAH CARDENAS MD This examination was interpreted and the report reviewed and electronically signed by: JUDAH CARDENAS MD on May 09 2021 1:39PM EST [id number] Normal [facility] XR HAND 3V PA/LAT/OBL RTon 0 05-06-2021 XR HAND 3V PA/LAT/OBL RT * * *Final Report* * * DATE OF EXAM: May 06 2021 10:40AM AWX [id number] - XR HAND 3V PA/LAT/OBL RT / PROCEDURE REASON: Pain in joint, multiple sites * * * * Physician Interpretation * * * * TECHNIQUE: XR FOOT 3V AP/LAT/OBL RT, XR FOOT 3V AP/LAT/OBL LT, XR HAND 3V PA/LAT/OBL LT, XR HAND 3V PA/LAT/OBL RT EXAM DATE: 05/06/2021 10:40 AM COMPARISON STUDIES: Left hand x-rays 03/23/2011 CLINICAL HISTORY: Pain in joint, multiple sites RESULT: Left foot: Partially seen distal tibial jun. Suture anchor of the calcaneus. No acute fracture or dislocation. Plantar heel spur and Achilles enthesophyte. Nonspecific mineralization and prominence of the distal Achilles tendon. No erosions. Mineralization related to the plantar soft tissues. Right foot: Suture anchor of the calcaneus. Mineralization and thickening related to the distal Achilles tendon. Mild 1st MTP joint degenerative change. No acute fracture or dislocation. No osseous erosions. No appreciable soft tissue swelling. Right hand: Question remote fracture deformity distal radius, and remote ulnar styloid fracture. Moderately advanced 1st CMC, mild/moderate 2nd through 5th finger DIP joint degenerative changes. No osseous erosions. No appreciable soft tissue swelling. Left hand: Moderately advanced triscaphe joint, moderate 1st CMC joint, mild to moderate 2nd through 5th finger DIP joint degenerative changes, progressed from prior. Chronic deformity involving the distal 3rd metacarpal unchanged. No acute fracture or dislocation. No erosions. IMPRESSION: Bilateral feet: Heel spurs. 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 pt states multiple joint pain. history of left lower leg surgery and hand fractures per patient TECHNIQUE: XR SI JTS 2V AP PELV/KEYES, XR HIP 3V PELV+ AP/LAT RT, XR HIP 3V PELV+ AP/LAT LT Laterality: RIGHT (accession [id number]), NOT APPLICABLE (accession [id number]) Number of different views (projections): 3 (accession [id number]), 2 (accession [id number]) COMPARISON: None RESULT: Right hip: Hip joint space maintained. Small collar and marginal osteophytes and femoral head. No erosions. No fracture. Left hip: Mild to moderate superior hip joint space narrowing with collar and marginal osteophytes. Sacroiliac joints: Sacroiliac joints are normal. Stool and bowel gas obscure detail in sacrum. IMPRESSION: MILD DEGENERATIVE CHANGES OF THE RIGHT HIP MILD TO MODERATE DEGENERATIVE CHANGES OF LEFT HIP.. NORMAL SACROILIAC JOINTS 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BILL Transcribe Date/Time: May 06 2021 11:22A Dictated by : SEE MACKEY MD This examination was interpreted and the report reviewed and electronically signed by: SEE MACKEY MD on May 06 2021 11:26AM EST [id number] Normal [facility] XR HIP 3V PELV+ AP/LAT RTon 05-06-2021 XR HIP 3V PELV+ AP/LAT RT * * *Final Report* * * DATE OF EXAM: May 06 2021 10:40AM AWX 5352 - XR HIP 3V PELV+ AP/LAT RT / PROCEDURE REASON: Pain in joint, multiple sites * * * * Physician Interpretation * * * * HISTORY: 75-YEAR-OLD FEMALE WITH Pain in joint, multiple sites . pt states multiple joint pain. history of left lower leg surgery and hand fractures per patient TECHNIQUE: XR SI JTS 2V AP PELV/KEYES, XR HIP 3V PELV+ AP/LAT RT, XR HIP 3V PELV+ AP/LAT LT Laterality: RIGHT (accession [id number]), NOT APPLICABLE (accession [id number]) Number of different views (projections): 3 (accession [id number]), 2 (accession [id number]) COMPARISON: None RESULT: Right hip: Hip joint space maintained. Small collar and marginal osteophytes and femoral head. No erosions. No fracture. Left hip: Mild to moderate superior hip joint space narrowing with collar and marginal osteophytes. Sacroiliac joints: Sacroiliac joints are normal. Stool and bowel gas obscure detail in sacrum. IMPRESSION: MILD DEGENERATIVE CHANGES OF THE RIGHT HIP MILD TO MODERATE DEGENERATIVE CHANGES OF LEFT HIP.. NORMAL SACROILIAC JOINTS 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PSCB Transcribe Date/Time: May 06 2021 11:22A Dictated by : SEE MACKEY MD This examination was interpreted and the report reviewed and electronically signed by: SEE MACKEY MD on May 06 2021 11:26AM EST [id number] Normal [facility] XR KNEE SURVEY 1V AP BILon 0 05-06-2021 XR KNEE SURVEY 1V AP JOSEPH * * *Final Report* * * DATE OF EXAM: May 06 2021 10:40AM AWX 5213 - XR KNEE SURVEY 1V AP JOSEPH / PROCEDURE REASON: Pain in joint, multiple sites * * * * Physician Interpretation * * * * HISTORY: 75-YEAR-OLD FEMALE WITH Pain in joint, multiple sites . pt states multiple joint pain. history of left lower leg surgery and hand fractures per patient TECHNIQUE: XR KNEE SURVEY 1V AP JOSEPH Laterality: BILATERAL Number of different views (projections): 1 COMPARISON: None RESULT: Chondrocalcinosis. Knee joint is maintained bilaterally. No acute fracture. There is an intramedullary nail in the left tibia. IMPRESSION: CHONDROCALCINOSIS. 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BILL Transcribe Date/Time: May 06 2021 11:19A Dictated by : SEE MACKEY MD This examination was interpreted and the report reviewed and electronically signed by: SEE MACKEY MD on May 06 2021 11:20AM EST [id number] Normal [facility] XR LUMBAR 2V AP/LATon 2021 XR LUMBAR 2V AP/LAT * * *Final Report* * * DATE OF EXAM: May 06 2021 10:40AM AWX 5229 - XR LUMBAR 2V AP/LAT / PROCEDURE REASON: Pain in joint, multiple sites * * * * Physician Interpretation * * * * EXAM: LUMBAR SPINE, 2 VIEWS CLINICAL: 75-year-old female with pain TECHNIQUE: AP, lateral COMPARISON: None RESULTS: Counting reference: Anatomic Variant: None. L4-5 is considered the level of the iliac crest and assume there are 5 lumbar-type vertebrae. Vertebral bodies and pedicles are intact. Moderate narrowing of L2/L3, mild to moderate narrowing of L3/L4 and marked narrowing of L4/L5 and L5/S1 disc spaces. Osteophytes throughout the lumbar spine anteriorly. Mild facet degenerative changes at L4/L5 and L5/S1. Minimal curve convex left centered at L2. Multiple surgical clips the pelvis, abdomen and the right upper quadrant IMPRESSION: MODERATELY ADVANCED DEGENERATIVE DISC DISEASE. 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BILL Transcribe Date/Time: May 06 2021 11:26A Dictated by : SEE MACKEY MD This examination was interpreted and the report reviewed and electronically signed by: SEE MACKEY MD on May 06 2021 11:29AM EST [id number] Normal [facility] XR SI JTS 2V AP PELV/FERGUSO Non 05-06-2021 XR SI JTS 2V AP PELV/KEYES * * *Final Report* * * DATE OF EXAM: May 06 2021 10:40AM AWX 5245 - XR SI JTS 2V AP PELV/KEYES / PROCEDURE REASON: Pain in joint, multiple sites * * * * Physician Interpretation * * * * HISTORY: 75-YEAR-OLD FEMALE WITH Pain in joint, multiple sites . pt states multiple joint pain. history of left lower leg surgery and hand fractures per patient TECHNIQUE: XR SI JTS 2V AP PELV/KEYES, XR HIP 3V PELV+ AP/LAT RT, XR HIP 3V PELV+ AP/LAT LT Laterality: RIGHT (accession [id number]), NOT APPLICABLE (accession [id number]) Number of different views (projections): 3 (accession [id number]), 2 (accession [id number]) COMPARISON: None RESULT: Right hip: Hip joint space maintained. Small collar and marginal osteophytes and femoral head. No erosions. No fracture. Left hip: Mild to moderate superior hip joint space narrowing with collar and marginal osteophytes. Sacroiliac joints: Sacroiliac joints are normal. Stool and bowel gas obscure detail in sacrum. IMPRESSION: MILD DEGENERATIVE CHANGES OF THE RIGHT HIP MILD TO MODERATE DEGENERATIVE CHANGES OF LEFT HIP.. NORMAL SACROILIAC JOINTS 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PSCB Transcribe Date/Time: May 06 2021 11:22A Dictated by : SEE MACKEY MD This examination was interpreted and the report reviewed and electronically signed by: SEE MACKEY MD on May 06 2021 11:26AM EST [id number] Normal [facility] cCP IgG SerPl-aCncon 022 Cyclic citrullinated peptide IgG Qn <15 Normal <20 [facility] Comment on above: Order Comment: Speci men Type: BLOOD SPECIMENOrdering Facility: [facility] Address: [address] [place], [place] [id number] Performed By: #### 3 3935-8, DNAAB ####[facility] LABCLIA [id number] [place] [address] [place] Basophil percentageon 2021 Bilirubin [Mass/Vol] 0.60 mg/dL 0.20-1.00 [facility] Work Phone: Comment on above: For patients on eltr ombopag therapy, use of Dimension [place] TBIL is not recommended. Chloride [Moles/Vol] 107 mmol/L 98-107 [facility] Work Phone: Cholesterol [Mass/Vol] 234 mg/dL <200 [facility] Work Phone: Comment on above: <200 mg/dL Desirable 200-240 mg/dL Borderline >240 mg/dL High Risk Glucose [Mass/Vol] 94 mg/dL 74-106 [facility] Work Phone: Potassium [Moles/Vol] 4.3 mmol/L 3.5-5.[address] [facility] Work Phone: Protein [Mass/Vol] 7.4 g/dL 6.4-8.2 [facility] Work Phone: Sodium [Moles/Vol] 137 mmol/L 136-145 [facility] Work Phone: Triglyceride [Mass/Vol] 180 mg/dL [facility] Work Phone: Comment on above: The drugs N-Acetylcy steine and Metamizole may falsely depress this assay.Serum Triglycerides Reference Interval Normal <150 mg/dL Borderline high 150 - 199 mg/dL High 200 - 499 mg/dL Very High > or = 500 mg/dL Laboratory - Chemistry and C hemistry - challengeon 04-29-2021 ALP [Catalytic activity/Vol] 105 U/L 45-117 [facility] Work Phone: ALT [Catalytic activity/Vol] 23 U/L 13-56 [facility] Work Phone: CO2 [Moles/Vol] 25.0 mmol/L 21.0-32.0 [facility] Work Phone: Free T4 [Mass/Vol] 1.16 ng/dL 0.76-1.46 [facility] Work Phone: Globulin (S) [Mass/Vol] 3.9 g/dL 2.2-4.2 [facility] Work Phone: Urea nitrogen/Creatinine [Mass ratio] 19.1 mg/mg 10-20 [facility] Work Phone: No Panel Informationon 04-29 Estimated GFR (MDRD) Amer 70 mL/min >60 [facility] Work Phone: Comment on above: GFR Calc Estimated GFR (MDRD) Non-Af Amer 58 mL/min >60 [facility] Work Phone: Comment on above: Non- GFR Calc Free Triiodothyronine (T3) pg/dL 2.4 pg/mL 2.18-3.98 [facility] Work Phone: Thyroid Stimulating Hormone (TSH) 1.42 uIU/mL 0.358-3.74 [facility] Work Phone: Serum or plasma albumin iris urement (mass/volume)on 04-29-2021 Albumin [Mass/Vol] 3.5 g/dL 3.2-5.0 [facility] Work Phone: Serum or plasma albumin/glob ulin mass ratioon 04-29-2021 Albumin/Globulin [Mass ratio] 0.9 {ratio} 0.9-2.4 [facility] Work Phone: Serum or plasma calcium iris urement (mass/volume)on 04-29-2021 Calcium [Mass/Vol] 9.5 mg/dL 8.5-10.1 [facility] Work Phone: Serum or plasma cholesterol in HDL measurement (mass/volume)on 04-29-2021 Cholesterol in HDL [Mass/Vol] 47 mg/dL [facility] Work Phone: Comment on above: The drugs N-Acetylcy steine and Metamizole may falsely depress this assay. Reference Range HDL <40 mg/dL Low HDL Cholesterol HDL >or= 60 mg/dL High HDL Cholesterol Serum or plasma cholesterol in VLDL measurement (mass/volume)on 04-29-2021 Cholesterol in VLDL [Mass/Vol] 36 mg/dL 5-40 [facility] Work Phone: Serum or plasma creatinine m easurement (mass/volume)on 04-29-2021 Creatinine [Mass/Vol] 1.00 mg/dL 0.55-1.[address] [facility] Work Phone: Comment on above: The validity of the calculated GFR & GFRAA in patients over 70 years has not been determined. Clinical correlation is essential. Serum or plasma low density lipoprotein (LDL) cholesterol measurement (mass/volume)on 04-29-2021 Cholesterol in LDL [Mass/Vol] 151 mg/dL 0-130 [facility] Work Phone: Serum or plasma urea nitroge n measurement (mass/volume)on 04-29-2021 Urea nitrogen [Mass/Vol] 19 mg/dL 7-18 [facility] Work Phone: Thin prep Papanicolaou smear with manual screeningon 04-29-2021 Thin prep Papanicolaou smear with manual screening 22 U/L 15-37 [facility] Work Phone: Thin prep Papanicolaou smear with manual screening 5 5-15 [facility] Work Phone: Office Visit: evaluation act inic lesions right lower cheek and nasal dorsumon 07-24-2016 Dietary management education, guidance, and counseling (procedure) yes Invalid Interpretation Code [facility] Work Phone: [phone] Documentation of current medications (procedure) Done Invalid Interpretation Code [facility] Work Phone: [phone] Fall risk assessment No Invalid Interpretation Code [facility] Work Phone: [phone] Protein mass conc Done [facility] Work Phone: [phone] Tobacco smoking status NHIS Never Invalid Interpretation Code [facility] Work Phone: [phone] Tobacco smoking status NHIS Never smoker [facility] Work Phone: [phone] Tobacco use CPHS Never smoker Invalid Interpretation Code [facility] Work Phone: [phone] Office Visit: evaluation act inic lesions lt ear, rt nasal ala, and rt cheekon 05-15-2016 Dietary management education, guidance, and counseling (procedure) yes Invalid Interpretation Code [facility] Work Phone: [phone] Documentation of current medications (procedure) Done Invalid Interpretation Code [facility] Work Phone: [phone] Fall risk assessment No Invalid Interpretation Code [facility] Work Phone: [phone] Tobacco smoking status NHIS Never Invalid Interpretation Code [facility] Work Phone: [phone] Tobacco use CPHS Never smoker Invalid Interpretation Code [facility] Work Phone: [phone] Office Visit: 6 mo f/u - PHQ 9 Completeon 12-28-2015 Adolescent depression screening assessment Adolescent depression screening assessment Invalid Interpretation Code [facility] Work Phone: [phone] Adult depression screening assessment Adult depression screening assessment Invalid Interpretation Code [facility] Work Phone: [phone] PHQ-9 quick depression assessment panel [Reported.PHQ] Adult depression screening assessment [facility] Work Phone: [phone] Lab Report: CBC W/Diff, Auto matedon 12-18-2015 Basophils/100 leukocytes 0.7 % Invalid Interpretation Code 0-1 [facility] Work Phone: [phone] Basophils/100 WBC (Bld) 0.7 % 0-1 [facility] Work Phone: [phone] Eosinophils/100 leukocytes 2.2 % Invalid Interpretation Code 0-5 [facility] Work Phone: [phone] Eosinophils/100 WBC (Bld) 2.2 % 0-5 [facility] Work Phone: [phone] Erythrocyte distribution width Ratio (RBC) 44.1 fL High 35.1-43.9 [facility] Work Phone: [phone] Erythrocyte distribution width Ratio (RBC) 13.3 % 11.6-14.6 [facility] Work Phone: [phone] Erythrocytes (RBC) 4.58 10*6/uL Invalid Interpretation Code 4.2-5.4 [facility] Work Phone: [phone] Hematocrit (HCT) 42.7 % Invalid Interpretation Code 37-47 [facility] Work Phone: [phone] Hematocrit Volume Fraction (Bld) 42.7 % 37-47 [facility] Work Phone: [phone] Hemoglobin (HGB) 13.9 g/dL Invalid Interpretation Code 12.0-15.0 [facility] Work Phone: [phone] Immature granulocytes #/vol (Bld) 0.000 % 0.0-0.9 [facility] Work Phone: [phone] immature granulocytes, percentage of total cells, blood 0.000 % Invalid Interpretation Code 0.0-0.9 [facility] Work Phone: [phone] Lymphocytes 1.75 X10 3/UL Invalid Interpretation Code 0.83-4.51 [facility] Work Phone: [phone] Lymphocytes #/vol (Bld) 1.75 X10 3/UL 0.83-4.51 [facility] Work [phone] Lymphocytes/100 leukocytes 21.5 % Invalid Interpretation Code 19-41 [facility] Work Phone: [phone] Lymphocytes/100 WBC (Bld) 21.5 % 19-41 [facility] Work Phone: [phone] MCH 30.3 pg Invalid Interpretation Code 27.0-32.0 [facility] Work Phone: [phone] MCH Entitic mass (RBC) 30.3 pg 27.0-32.0 [facility] Work Phone: [phone] MCHC 32.6 G/GL Invalid Interpretation Code 32-36 [facility] Work Phone: [phone] MCHC mass conc (RBC) 32.6 G/GL 32-[address] [facility] Work Phone: [phone] MCV 93.2 fL Invalid Interpretation Code 81-99 [facility] Work Phone: [phone] MCV Entitic volume (RBC) 93.2 fL 81-99 [facility] Work Phone: [phone] Monocytes/100 leukocytes 7.5 % Invalid Interpretation Code 0-10 [facility] Work Phone: [phone] Monocytes/100 WBC (Bld) 7.5 % 0-10 [facility] Work Phone: [phone] neutrophil count, blood 5.5 X10 3/UL Invalid Interpretation Code 2.0-7.7 [facility] Work Phone: [phone] Neutrophils #/vol (Bld) 5.5 X10 3/UL 2.0-7.7 [facility] Work Phone: [phone] Neutrophils/100 leukocytes 68.1 % Invalid Interpretation Code 47-70 [facility] Work Phone: [phone] Neutrophils/100 WBC (Bld) 68.1 % 47-70 [facility] Work Phone: [phone] Platelet mean volume Entitic volume (Bld) 12.1 fL High 6.2-12.0 [facility] Work Phone: [phone] Platelets 230 10*3/mm3 Invalid Interpretation Code 150-450 [facility] Work Phone: [phone] Platelets #/vol (Bld) 230 10*3/mm3 150-450 [facility] Work Phone: [phone] PMV by [place] 12.1 fL High 6.2-12.0 [facility] Work Phone: [phone] RBC #/vol (Bld) 4.58 10*6/uL 4.2-5.4 [facility] Work Phone: [phone] RDW-CA 13.3 % Invalid Interpretation Code 11.6-14.6 [facility] Work Phone: [phone] red blood cell distribution width, size density 44.1 fL High 35.1-43.9 [facility] Work Phone: [phone] WBC #/vol (Bld) 8.1 10*3/uL 4.4-11.0 [facility] Work Phone: [phone] WBC (Leukocytes) 8.1 10*3/uL Invalid Interpretation Code 4.4-11.0 [facility] Work Phone: [phone] Lab Report: [facility] 12-18-2015 Alanine aminotransferase (ALT) 25 U/L Invalid Interpretation Code 12-78 [facility] Work Phone: [phone] Albumin 3.8 g/dL Invalid Interpretation Code 3.4-5.0 [facility] Work Phone: [phone] Albumin/Globulin Ratio 1 {ratio} Invalid Interpretation Code 0.9-2.4 [facility] Work Phone: [phone] Alkaline phosphatase (ALP) 104 U/L Invalid Interpretation Code 50-136 [facility] Work Phone: [phone] ALP enzyme act/vol (Bld) 104 U/L 50-136 [facility] Work Phone: [phone] Anion gap 8 mmol/L Invalid Interpretation Code 5-15 [facility] Work Phone: [phone] Anion gap molar conc 8 mmol/L 5-[address] [facility] Work Phone: [phone] Aspartate aminotransferase (AST) 24 U/L Invalid Interpretation Code 15-37 [facility] Work Phone: [phone] Bilirubin (total) 0.50 mg/dL Invalid Interpretation Code 0.20-1.00 [facility] Work Phone: [phone] BUN/Creatinine Ratio 18.3 RATIO Invalid Interpretation Code 10-20 [facility] Work Phone: [phone] Calcium 9.1 mg/dL Invalid Interpretation Code 8.5-10.1 [facility] Work Phone: [phone] Chloride 105 mmol/L Invalid Interpretation Code 98-107 [facility] Work Phone: [phone] CO2 26.0 mmol/L Invalid Interpretation Code 21.0-32.0 [facility] Work Phone: [phone] CO2 ppres (BldV) 26.0 mmol/L 21.0-32.0 [facility] Work Phone: [phone] Creatinine 0.87 mg/dL Invalid Interpretation Code 0.55-1.20 [facility] Work Phone: [phone] eGFR (non-black) 83 mL/min/{1.73_m2} Invalid Interpretation Code >60 [facility] Work Phone: [phone] eGFR (non-black) 68 mL/min/{1.73_m2} Invalid Interpretation Code >60 [facility] Work Phone: [phone] EST GFR - AA 83 mL/min >60 [facility] Work Phone: [phone] Globulin 3.7 g/dL High 2.3-3.5 [facility] Work Phone: [phone] Globulin mass conc (S) 3.7 g/dL High 2.3-3.5 [facility] Work Phone: [phone] Glucose 89 mg/dL Invalid Interpretation Code 70-110 [facility] Work Phone: [phone] Glucose mass conc 89 mg/dL 70-110 [facility] Work Phone: [phone] Potassium 4.3 mmol/L Invalid Interpretation Code 3.5-5.1 [facility] Work Phone: [phone] Protein 7.5 g/dL Invalid Interpretation Code 6.4-8.2 [facility] Work Phone: [phone] Sodium 139 mmol/L Invalid Interpretation Code 136-145 [facility] Work Phone: [phone] Urea nitrogen 16 mg/dL Invalid Interpretation Code 7-18 [facility] Work Phone: [phone] Lab Report: LDHon 12-18-2015 lactate dehydrogenase - serum 232 U/L Invalid Interpretation Code 84-246 [facility] Work Phone: [phone] LDH 232 U/L 84-246 [facility] Work Phone: [phone] Lab Report: Lipid Profileon 12-18-2015 Cholesterol 190 mg/dL Invalid Interpretation Code 200 [facility] Work Phone: [phone] HDL Cholesterol 50 mg/dL Invalid Interpretation Code [facility] Work Phone: [phone] LDL Cholesterol 111 mg/dL Invalid Interpretation Code 0-130 [facility] Work Phone: [phone] Triglyceride 147 mg/dL Invalid Interpretation Code [facility] Work Phone: [phone] very low density lipoproteins 29 mg/dL Invalid Interpretation Code 5-40 [facility] Work Phone: [phone] Lab Report: Magnesiumon 11-20 Magnesium 2.0 mg/dL Invalid Interpretation Code 1.8-2.4 [facility] Work Phone: [phone] Lab Report: Thyroid Stim Hor marycarmen (TSH)on 12-18-2015 Thyroid stimulating hormone (TSH) 1.67 u[iU]/mL Invalid Interpretation Code 0.358-3.74 [facility] Work Phone: [phone] Lab Report: Uric Acidon 11-20 Urate 4.6 mg/dL Invalid Interpretation Code 2.6-6.0 [facility] Work Phone: [phone] Microbiology: Culture, Fungu s w/ [id number] 08-13-2015 CUFST . [facility] Work Phone: [phone] GE use only - for [employer] import when terms are not otherwise specified . Invalid Interpretation Code [facility] Work Phone: [phone] Lab Report: CBC W/Diff, Auto - EPLAB Onlyon 04-22-2014 Absolute Neut 6.3 X10 3/UL 2.0-7.7 [facility] Work Phone: [phone] Absolute Neutrophil count 6.3 X10 3/UL Invalid Interpretation Code 2.0-7.7 [facility] Work Phone: [phone] Replaced Document: LDHon Lactate dehydrogenase (LDH) 216 U/L Normal 87-241 [facility] Work Phone: [phone] Lab Report: VITDon 4 vitamin D 25-hydroxy, serum [id number] ng/mL Normal Units converted. See lab report for original value. [facility] Work Phone: [phone] VITD [id number] ng/mL Normal Units converted. See lab report for original value. [facility] Work Phone: [phone] Lab Report: B12on 06-25-2013 Cobalamin (Vitamin B12) mass conc 600 pg/mL Normal 211-911 [facility] Work Phone: [phone] vitamin b12, serum 600 pg/mL Normal 211-911 [facility] Work Phone: [phone] Lab Report: FERon 06-24-2013 Ferritin 505 ng/mL High 8-252 [facility] Work Phone: [phone] Lab Report: FOLon 06-24-2013 Folate 18.20 ng/mL High 3.1-17.5 [facility] Work Phone: [phone] Lab Report: IBCon 06-24-2013 Iron 60 ug/dL Normal 50-170 [facility] Work Phone: [phone] iron binding capacity, total 259 ug/dL Normal 250-450 [facility] Work Phone: [phone] Vital Signs Date Time Vital Sign Value Performing Clinician Facility 11-14-2024 07:43-0400 Body mass index (BMI) [Ratio] 23.9 kg/m2 Dr. Jesus Peters MD Work Phone: [facility] 11-14-2024 07:43-0400 Body weight 73.[address] Jesus Peters MD Work Phone: [facility] 11-14-2024 07:43-0400 Diastolic blood pressure 79 mm[Hg] Dr. Jesus Peters MD Work Phone: [facility] 11-14-2024 07:43-0400 Heart rate 87 /min Dr. Jesus Peters MD Work Phone: [facility] 11-14-2024 07:43-0400 Respiratory rate 18 /min Dr. Jesus Peters MD Work Phone: [facility] 11-14-2024 07:43-0400 SaO2% (BldA) [Mass fraction] 100 % Dr. Jesus Peters MD Work Phone: [facility] 11-14-2024 07:43-0400 Systolic blood pressure 126 mm[Hg] Dr. Jesus Peters MD Work Phone: [facility] 12-03-2023 15:24-0400 Body height 172.7 cm Kamila Mercado MD Work Phone: [facility] 12-03-2023 15:24-0400 Body mass index (BMI) [Ratio] 25.79 kg/m2 Kamila Mercado MD Work Phone: [facility] 12-03-2023 15:24-0400 Body temperature 96.01 [degF] Kamila Mercado MD Work Phone: [facility] 12-03-2023 15:24-0400 Body weight 76.93 kg Kamila Mercado MD Work Phone: [facility] 12-03-2023 15:24-0400 Diastolic blood pressure 78 mm[Hg] Kamila Mercado MD Work Phone: [facility] 12-03-2023 15:24-0400 Heart rate 106 /min Kamila Mercado MD Work Phone: [facility] 12-03-2023 15:24-0400 SaO2% (BldA) [Mass fraction] 97 % Kamila Mercado MD Work Phone: [facility] 12-03-2023 15:24-0400 Systolic blood pressure 138 mm[Hg] Kamila Mercado MD Work Phone: [facility] 11-12-2023 15:57-0400 Body height 170.2 cm Kamila Mercado MD Work Phone: [facility] 11-12-2023 15:57-0400 Body mass index (BMI) [Ratio] 26.47 kg/m2 Kamila Mercado MD Work Phone: [facility] 11-12-2023 15:57-0400 Body temperature 98.1 [degF] Kamila Mercado MD Work Phone: [facility] 11-12-2023 15:57-0400 Body weight 76.66 kg Kamila Mercado MD Work Phone: [facility] 11-12-2023 15:57-0400 Diastolic blood pressure 84 mm[Hg] Kamila Mercado MD Work Phone: [facility] 11-12-2023 15:57-0400 Heart rate 85 /min Kamila Mercado MD Work Phone: [facility] 11-12-2023 15:57-0400 SaO2% (BldA) [Mass fraction] 96 % Kamila Mercado MD Work Phone: [facility] 11-12-2023 15:57-0400 Systolic blood pressure 141 mm[Hg] Kamila Mercado MD Work Phone: [facility] 01-09-2023 08:12-0500 Body height 175.[address] Jesus Peters Work Phone: [facility] 01-09-2023 08:12-0500 Body mass index (BMI) [Ratio] 25.4 kg/m2 Dr. Jesus Peters Work Phone: [facility] 01-09-2023 08:12-0500 Body weight 78.[address] Jesus Peters Work Phone: [facility] 12-15-2022 13:10-0400 Diastolic blood pressure 66 mm[Hg] Kamila Mercado MD Work Phone: [facility] 12-15-2022 13:10-0400 Heart rate 60 /min Kamila Mercado MD Work Phone: [facility] 12-15-2022 13:10-0400 Respiratory rate 16 /min Kamila Mercado MD Work Phone: [facility] 12-15-2022 13:10-0400 SaO2% (BldA) [Mass fraction] 96 % Kamila Mercado MD Work Phone: [facility] 12-15-2022 13:10-0400 Systolic blood pressure 145 mm[Hg] Kamila Mercado MD Work Phone: [facility] 12-15-2022 11:39-0400 Body temperature 97.7 [degF] Kamila Mercado MD Work Phone: [facility] 08-07-2022 12:43-0400 Body weight 76.84 kg Pacc 2 Work Phone: [facility] 08-07-2022 12:43-0400 Diastolic blood pressure 74 mm[Hg] Pacc 2 Work Phone: [facility] 08-07-2022 12:43-0400 Heart rate 72 /min Pacc 2 Work Phone: [facility] 08-07-2022 12:43-0400 Respiratory rate 18 /min Pacc 2 Work Phone: [facility] 08-07-2022 12:43-0400 SaO2% (BldA) [Mass fraction] 95 % Pac 2 Work Phone: [facility] 08-07-2022 12:43-0400 Systolic blood pressure 156 mm[Hg] Pac 2 Work Phone: [facility] 11-22-2021 14:36-0400 Body height 175.[address] Jesus Peters Work Phone: [facility] 11-22-2021 14:36-0400 Body mass index (BMI) [Ratio] 25.4 kg/m2 Dr. Jesus Peters Work Phone: [facility] 11-22-2021 14:36-0400 Body weight 78.[address] Jesus Peters Work Phone: [facility] 11-22-2021 14:36-0400 Diastolic blood pressure 74 mm[Hg] Dr. Jesus Peters Work Phone: [facility] 11-22-2021 14:36-0400 Heart rate 90 /min Dr. Jesus Peters Work Phone: [facility] 11-22-2021 14:36-0400 Respiratory rate 16 /min Dr. Jesus Peters Work Phone: [facility] 11-22-2021 14:36-0400 SaO2% (BldA) [Mass fraction] 99 % Dr. Jesus Peters Work Phone: [facility] 11-22-2021 14:36-0400 Systolic blood pressure 121 mm[Hg] Dr. Jesus Peters Work Phone: [facility] 02-09-2021 09:25-0500 Heart rate 89 /min Dr. Jesus Peters Work Phone: [facility] Work Phone: 02-09-2021 09:25-0500 Respiratory rate 17 /min Dr. Jesus Peters Work Phone: [facility] Work Phone: 02-09-2021 09:25-0500 SaO2% (BldA) [Mass fraction] 98 % Dr. Jesus Peters Work Phone: [facility] Work Phone: 02-09-2021 07:51-0500 Body height 175.[address] Jesus Peters Work Phone: [facility] Work Phone: 02-09-2021 07:51-0500 Body mass index (BMI) [Ratio] 25.7 kg/m2 Dr. Jesus Peters Work Phone: [facility] Work Phone: 02-09-2021 07:51-0500 Body temperature 98.2 [degF] Dr. Jesus Peters Work Phone: [facility] Work Phone: 02-09-2021 07:51-0500 Body weight 79.[address] Jesus Peters Work Phone: [facility] Work Phone: 02-09-2021 07:51-0500 Diastolic blood pressure 92 mm[Hg] Dr. Jesus Peters Work Phone: [facility] Work Phone: 02-09-2021 07:51-0500 Systolic blood pressure 167 mm[Hg] Dr. Jesus Peters Work Phone: [facility] Work Phone: 01-31-2021 12:20-0500 Body mass index (BMI) [Ratio] 26.6 kg/m2 Dr. Jesus Peters Work Phone: [facility] Work Phone: 01-31-2021 12:20-0500 Body weight 77.[address] Jesus Peters Work Phone: [facility] Work Phone: 01-31-2021 12:20-0500 Diastolic blood pressure 83 mm[Hg] Dr. Jesus Peters Work Phone: [facility] Work Phone: 01-31-2021 12:20-0500 Heart rate 76 /min Dr. Jesus Peters Work Phone: [facility] Work Phone: 01-31-2021 12:20-0500 Respiratory rate 18 /min Dr. Jesus Peters Work Phone: [facility] Work Phone: 01-31-2021 12:20-0500 SaO2% (BldA) [Mass fraction] 99 % Dr. Jesus Peters Work Phone: [facility] Work Phone: 01-31-2021 12:20-0500 Systolic blood pressure 129 mm[Hg] Dr. Jesus Peters Work Phone: [facility] Work Phone: 07-24-2016 13:12-0400 BMI (Body Mass Index) 27.43 kg/m2 Mason Link MD [facility] Work Phone: 07-24-2016 13:12-0400 Body Temperature 97.9 [degF] Mason Link MD [facility] Work Phone: 07-24-2016 13:12-0400 BSA (Body Surface Area) 1.96 m2 Mason Link MD [facility] Work Phone: 07-24-2016 13:12-0400 Height 172.72 cm Mason Link MD [facility] Work Phone: 07-24-2016 13:12-0400 Pulse (Heart Rate) 75 /min [facility] Work Phone: 07-24-2016 13:12-0400 Respiratory Rate 16 /min Mason Link MD [facility] Work Phone: 07-24-2016 13:12-0400 Weight 81.83 kg Mason Link MD [facility] Work Phone: 05-15-2016 13:08-0400 BMI (Body Mass Index) 27.4 kg/m2 Mason Link MD [facility] Work Phone: 05-15-2016 13:08-0400 Body Temperature 98.1 [degF] Mason Link MD [facility] Work Phone: 05-15-2016 13:08-0400 BP Diastolic 77 mm[Hg] Mason Link MD [facility] Work Phone: 05-15-2016 13:08-0400 BP Systolic 127 mm[Hg] Mason Link MD [facility] Work Phone: 05-15-2016 13:08-0400 BSA (Body Surface Area) 1.96 m2 Mason Link MD [facility] Work Phone: 05-15-2016 13:08-0400 Height 172.72 cm Mason Link MD [facility] Work Phone: 05-15-2016 13:08-0400 Pulse (Heart Rate) 89 /min Mason Link MD [facility] Work Phone: 05-15-2016 13:08-0400 Pulse Oximetry 96 % Mason Link MD [facility] Work Phone: 05-15-2016 13:08-0400 Respiratory Rate 16 /min Mason Link MD [facility] Work Phone: 05-15-2016 13:08-0400 Weight 81.74 kg Mason Link MD [facility] Work Phone: 12-28-2015 13:26-0500 Height 172.72 cm Mason Link MD [facility] Work Phone: 12-28-2015 13:26-0500 Weight 77.36 kg Mason Link MD [facility] Work Phone: 12-29-2014 13:03-0500 Body Temperature 97.59 [degF] Mason Link MD [facility] Work Phone: Encounters Encounter Date Encounter Type Care Provider Facility Start: 12-11-2024 ambulatory Leah Pearce OUTBOUND SUPERVISOR Facili ty:[facility] Start: 11-14-2024 End: 11-14-2024 Patient encounter procedure Leah MORFIN -[facility] Work Phone: Start: 11-14-2024 End: 11-14-[address] Jesus Peters MD Work Phone: -[facility] Start: 10-06-2024 End: 10-06-[address] Jesus Peters MD Work Phone: -[facility] Start: 10-06-2024 End: 10-06-[address] Jesus Peters MD -Laboratory [facility] Start: 10-06-2024 End: 10-06-2024 ambulatory Jesus Peters Facility:[facility] Start: 06-05-2024 End: 06-05-[address] Jesus Peters MD Work Phone: [facility] Work Phone: Start: 06-05-2024 End: 06-05-[address] Jesus Peters MD -Laboratory Work Phone: Start: 06-05-2024 End: 06-05-2024 ambulatory Jesus Peters Facility:[facility] Start: 05-20-2024 End: 05-20-[address] Jesus Peters MD Work Phone: [facility] Work Phone: Start: 05-20-2024 End: 05-20-[address] [facility] Start: 05-20-2024 End: 05-20-2024 ambulatory Erwin Wiley Facility:[facility] Start: 04-03-2024 End: 04-03-[address] [facility] Start: 04-03-2024 End: 04-03-2024 ambulatory Erwin Wiley Facility:[facility] Start: 03-20-2024 End: 03-20-[address] [facility] Start: 03-20-2024 End: 03-20-2024 ambulatory Jesus Peters Facility:[facility] Start: 03-11-2024 End: 05-08-2024 Telephone encounter Kamila Mercado MD Work Phone: General Surgery Comment on above: Results Release Of Medical R ecords (Imaging) Start: 03-04-2024 End: 03-04-2024 ambulatory KAMILA MERCADO Facility:[facility] Start: 03-04-2024 End: 03-04-2024 Subsequent hospital visit by physician [facility] (I-Stat) Work Phone: Cat Scan Comment on above: Lung nodules [R91.8] Start: 01-10-2024 End: 01-10-2024 [facility] Jesus Peters Facility:[facility] Start: 12-28-2023 End: 12-28-2023 [facility] Jesus Peters Facility:[facility] Start: 12-03-2023 End: 12-03-2023 ambulatory KAMILA MERCADO Facility:[facility] Start: 12-03-2023 End: 12-03-2023 Patient encounter procedure Kamila Mercado MD Work Phone: General Surgery Comment on above: Lung nodules (Primar y Dx); Abnormal chest CT Start: 11-26-2023 End: 11-26-2023 ambulatory JESUS PETERS Facility:[facility] Start: 11-26-2023 End: 11-26-2023 Subsequent hospital visit by physician [facility] (I-Stat) Work Phone: Cat Scan Comment on above: History of left [address] cancer [Z85.3] Start: 11-12-2023 End: 11-12-2023 ambulatory KAMILA MERCADO Facility:[facility] Start: 11-12-2023 End: 11-12-2023 Patient encounter procedure Kamila Mercado MD Work Phone: General Surgery Comment on above: Mass of left chest w all (Primary Dx); History of left breast cancer; Status post mastectomy, bilateral Start: 05-21-2023 End: 05-21-2023 ambulatory [facility] Work Phone: Start: 05-21-2023 End: 05-21-2023 Patient encounter procedure [facility] Start: 02-21-2023 End: 02-21-[address] Jesus Peters Work Phone: [facility] Work Phone: Start: 02-21-2023 End: 02-21-[address] Jesus Peters Work Phone: [facility] Start: 01-09-2023 End: 01-09-[address] Jesus Peters Work Phone: [facility] Work Phone: Start: 01-05-2023 Non-patient / Non-visit Dr. Denver Peters Work Phone: [facility] Start: 01-05-2023 End: 01-05-[address] Jesus Peters Work Phone: [facility] Work Phone: Start: 01-05-2023 End: 01-05-[address] Jesus Peters Work Phone: [facility]-Cardiovascular Services Work Phone: Start: 12-15-2022 End: 12-15-2022 Subsequent hospital visit by physician Kamila Mercado MD Work Phone: Ambulatory Surgery Comment on above: Screening for colon cancer [Z12.11] Start: 12-13-2022 End: 12-13-[address] Jesus Peters Work Phone: [facility] Work Phone: Start: 12-13-2022 End: 12-13-[address] Jesus Peters Work Phone: [facility]-Physical Therapy Work Phone: Start: 12-13-[address] [facility] Start: 11-27-2022 End: 11-27-2022 Patient encounter procedure Kamila Mercado MD Work Phone: General Surgery Comment on above: Pigmented skin lesio n of uncertain behavior of lower extremity (Primary Dx) Start: 11-27-2022 End: 11-27-[address] Jesus [facility] Start: 11-24-2022 Telephone encounter Kamila Hirsch MD Work Phone: General Surgery Comment on above: Medication Problem Start: 11-13-2022 [facility] Start: 11-08-2022 End: 11-08-2022 ambulatory [facility] Work Phone: Start: 11-08-2022 End: 11-08-2022 [facility] Start: 09-15-2022 End: 09-15-2022 Patient encounter procedure [facility] Work Phone: Start: 08-31-2022 End: 08-31-2022 ambulatory [facility]:[id number] Start: 08-24-2022 End: 08-24-2022 ambulatory [facility] Work Phone: Start: 08-24-2022 End: 08-24-2022 Patient encounter procedure [facility] Start: 08-24-2022 Telephone encounter Esthela Jimenez RN Pre Anesthesia Comment on above: PreOp Call Start: 08-10-2022 Telephone encounter Esthela Jimenez RN Pre Anesthesia Comment on above: PreOp Call Start: 08-07-2022 End: 08-07-2022 Subsequent hospital visit by physician Xr [facility] 3 RADIO GEN [facility] Comment on above: Hypertension, unspec ified type [I10] Start: 08-07-2022 Encounter for other preprocedural examination [facility] Start: 08-07-2022 Encounter for preprocedural cardiovascular examination JESUS [facility] Start: 08-07-2022 End: 08-07-2022 [facility] Start: 08-07-2022 End: 08-08-2022 ambulatory JESUS PETERS Pre Anesthesia Comment on above: Preop cardiovascular exam (Primary Dx); Preop testing; Hypertension, unspecified type Start: 08-07-2022 End: 08-07-2022 Patient encounter status Pac 2 Work Phone: Pre Anesthesia Start: 07-25-2022 Transcribe Orders Deb Hahn MA Patient Services Comment on above: Acquired absence of breast and absent nipple, unspecified laterality (Primary Dx) Start: 05-12-2022 End: 05-12-2022 ambulatory [facility] Work Phone: Start: 05-12-2022 End: 05-12-2022 Patient encounter procedure [facility]-Laboratory Start: 03-01-2022 End: 03-01-[address] Jesus Peters Work Phone: [facility] Work Phone: Start: 03-01-2022 End: 03-01-[address] Jesus Peters Work Phone: [facility]-Laboratory Start: 01-26-2022 End: 01-26-[address] Jesus Peters Work Phone: [facility]-Cat Scan, [facility] Start: 12-21-2021 End: 12-21-[address] Jesus Peters Work Phone: [facility] Work Phone: Start: 12-21-2021 End: 12-21-[address] Jesus Peters Work Phone: [facility]-MRI - [facility] Start: 11-22-2021 End: 11-22-[address] Jesus Peters Work Phone: [facility] Start: 07-01-2021 Telephone encounter Irasema eduardo MD Work Phone: [facility] Comment on above: Results Start: 05-31-2021 End: 05-31-2021 ambulatory Irasema Vela MD Work Phone: [facility] Comment on above: Osteoporosis, unspec ified osteoporosis type, unspecified pathological fracture presence (Primary Dx); Primary osteoarthritis involving multiple joints Start: 05-31-2021 End: 05-31-2021 Telemedicine consultation with patient Irasema Vela MD Work Phone: [facility] Start: 05-20-2021 End: 05-20-[address] [facility] Start: 05-13-2021 Telephone encounter Irasema eduardo MD Work Phone: [facility] Comment on above: Patient Question Start: 05-13-[address] Jesus [facility] Start: 05-10-2021 End: 05-10-[address] Jesus Peters Work Phone: [facility]-Outpatient Bone Densitometry Start: 04-29-2021 End: 04-29-[address] Jesus Peters Work Phone: [facility]-Laboratory, [facility] Start: 02-15-[address] Jesus Peters Work Phone: [facility]-Cat Scan, [facility] Start: 02-09-2021 End: 02-09-2021 Emergency department patient visit Dr. Jesus Peters Work Phone: [facility]-Emergency Department Start: 01-31-2021 End: 01-31-[address] Jesus Peters Work Phone: [facility] Procedures Date Procedure Procedure Detail Performing Clinician Start: 12-15-2022 Colonoscopy flx dx w/collj spec when pfrmd Kamila Mercado MD Work Phone: Start: 11-27-2022 SURGICAL PATHOLOGY Ethan Mercado MD Work Phone: Start: 09-15-2022 Radiologic examinati on of knee Start: 08-07-2022 End: 08-07-2022 Antibody screen Pac 2 Work Phone: Comment on above: Order Comment: Speci men Type: BLOOD SPECIMEN Ordering Facility: [facility] Address: [address] [place] [id number] Performed By: #### T [id number] #### [facility] CLIA [id number] [address] [place] [address] Start: 08-07-2022 Radiologic exam ches t 2 views Nayeli Perez MD Work Phone: Start: 08-07-2022 Antibody screen rbc each serum technique Nayeli Perez MD Work Phone: Start: 08-07-2022 Iadna s aureus ampli fied probe tq Nayeli Perez MD Work Phone: Start: 08-07-2022 Thromboplastin time partial plasma/whole blood Nayeli Perez MD Work Phone: Start: 08-07-2022 Ecg routine ecg w/le ast 12 lds i&r only Nayeli Perez MD Work Phone: Start: 01-26-2022 CT of upper limb wit hout contrast Dr. Jesus Peters Work Phone: Start: 12-21-2021 MRI of joint of lowe r extremity Dr. Jesus Peters Work Phone: Start: 05-10-2021 Dual energy X-ray absorptiometry Dr. Jesus Peters Work Phone: Start: 02-15-2021 CT of upper limb wit hout contrast Dr. Jesus Peters Work Phone: Start: 02-09-2021 Plain X-ray of shoulder Dr. Jesus Peters Work Phone: Start: 02-09-2021 CT of head without contrast Dr. Jesus Peters Work Phone: Start: 07-24-2016 End: 07-24-2016 Dietary management education, guidance, and counseling Mason Link MD Start: 06-29-2015 End: 06-30-2015 *CMP Complete Metabolic Panel Maryanne Lanza Work Phone: Start: 06-29-2015 End: 06-29-2015 Lactate dehydrogenase (LDH) Maryanne Vanegas Alaeric Work Phone: Start: 06-29-2015 End: 06-29-2015 Urate Maryanne Lanza Work Phone: Start: 05-14-2015 End: 07-14-2015 Follow Up Appt Other Mason Link MD Start: 04-07-2015 Screening mammography [facility] screening for breast cancer Mason Link MD Start: 12-22-2014 End: 12-22-2014 *CMP Complete Metabolic Panel Maryanne Lanza Work Phone: Start: 12-22-2014 End: 12-22-2014 Lactate dehydrogenase (LDH) Maryanne Lanza Work Phone: Start: 12-22-2014 End: 12-22-2014 Urate Maryanne Eric Lanza Work Phone: Start: 10-07-2014 End: 10-19-2014 Follow Up Appt Other Mason Link MD Start: 04-03-2014 End: 10-19-2014 Follow Up Appt 6 months Mason Link MD Start: 02-03-2014 End: 03-20-2014 Follow Up Appt Other Mason Link MD Start: 10-31-2013 End: 03-20-2014 Follow Up Appt 3 months Mason Link MD Start: 10-07-2013 End: 10-13-2013 Follow Up Appt 2 months Mason Link MD Start: 09-09-2013 End: 09-12-2013 Follow Up Appt 1 month Mason Link MD Start: 08-25-2013 End: 08-25-2013 *CBC with Differential Hoskins M Alaeric Work Phone: Start: 08-25-2013 End: 08-26-2013 *CMP Complete Metabolic Panel Hoskins Eric Alam Work Phone: Start: 08-25-2013 End: 08-25-2013 Lactate dehydrogenase (LDH) Maryanne Vanegas Alam Work Phone: Start: 08-25-2013 End: 08-26-2013 Urate Maryanne Vanegas Alaeric Work Phone: Start: 08-12-2013 End: 08-12-2013 Echo exam of abdomen Mason Link MD Start: 08-12-2013 End: 08-12-2013 Follow Up Appt 1 month Mason Link MD Start: 07-21-2013 End: 07-21-2013 Ct abdomen w/o & w/dye Mason Link MD Start: 07-21-2013 End: 07-21-2013 Follow up Appt 3 weeks Mason Link MD Start: 07-07-2013 End: 07-07-2013 Follow Up Appt 2 weeks Mason Link MD Start: 06-24-2013 End: 06-27-2013 Bacteria anaerobode culture Mason Link MD Start: 06-24-2013 End: 06-27-2013 Bacterica wound culture Mason Link MD Start: 06-24-2013 End: 06-27-2013 Follow Up Appt 2 weeks Mason Link MD Start: 06-10-2013 End: 06-27-2013 Follow Up Appt 2 weeks Mason Link MD Start: 05-30-2013 End: 06-27-2013 Follow up Appt 1 week Mason Link MD Start: 05-26-2013 End: 05-28-2013 Follow Up Appt Other Mason Link MD Start: 05-05-2013 End: 05-06-2013 Follow Up Appt Other Mason Link MD Start: 04-23-2013 Bx breast 1st Lesion strtctc Kamila Mercado Work Phone: Start: 11-10-2011 Colonoscopy Irasema eduardo MD Work Phone: Start: 11-25-2009 End: 12-06-2009 Mammogram, Screening, both breasts Douglas Moncada MD Start: 11-25-2009 End: 11-25-2009 Physical examination PHYSICAL EXAMINATION Mason Link MD History of bilateral mastectomy Status post mastectomy, bilateral Kamila Mercado MD Work Phone: Plan of Treatment Date Care Activity Detail Author Start: 02-09-2031 Urine microalbumin profile DTaP,Tdap,Td Vaccine (2 - Td or Tdap) [facility] Start: 08-07-2025 DIABETES SCREEN DIABETES SCREEN [facility] Start: 08-07-2025 Diabetes Screening Diabetes Screenin g [facility] Start: 05-06-2024 DIABETES SCREEN DIABETES SCREEN [facility] Start: 03-04-2024 End: 01-01-2025 CT Chest WO contrast [facility] Work Phone: Comment on above: Expected: 03/04/2024 , Expires: 01/01/2025 Start: 03-04-2024 End: 03-04-2024 Patient encounter procedure 03/04/2024 8:00 AM EST Appointment Cat Scan [address] [place] [address] CT CHEST Cat Scan Comment on above: CT CHEST Start: 02-20-2024 Advance Directive Discussion Advance Directive Discussion [facility] Start: 12-10-2023 End: 12-10-2023 Patient encounter procedure 12/10/2023 8:30 AM EDT Office Visit General Surgery [address] [place] [id number] Kamila Mercado MD [address] [place] [phone] CT COLLOW UP General Surgery Comment on above: CT COLLOW UP Start: 11-26-2023 End: 11-26-2023 Patient encounter procedure 11/26/2023 8:00 AM EDT Appointment Cat Scan [address] [place] [id number] 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] Cat Scan Comment on above: 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] Start: 11-12-2023 End: 02-11-2024 CREATININE BLD CREATININE BLD Lab Routine Mass of left chest wall Expected: 11/12/2023, Expires: 02/11/2024 [facility] Comment on above: Expected: 11/12/2023 , Expires: 02/11/2024 Start: 10-21-2023 Covid-19 Vaccine ( season) Covid-19 Vaccine () [facility] Start: 10-21-2023 Influenza vaccination Influenza Vacc ine (#1) [facility] Start: 02-19-2023 Advance Directive Discussion Advance Directive Discussion [facility] Start: 10-20-2022 Covid-19 Vaccine ( season) Covid-19 Vaccine ( season) [facility] Start: 10-20-2022 Influenza vaccination [facility] Start: 03-19-2022 Covid-19 Vaccine (7 - Pfizer series) Covid-19 Vaccine (7 - Pfizer series) [facility] Start: 02-19-2022 ADVANCE DIRECTIVE DISCUSSION ADVANCE DIRECTIVE DISCUSSION [facility] Start: 02-19-2022 DEPRESSION ASSESSMENT DEPRESSION ASS ESSMENT [facility] Start: 11-09-2021 Colonoscopy COLONOSCOPY [facility] Start: 11-09-2021 COLORECTAL CANCER SCREENING COLORECTAL CANCER SCREENING [facility] Start: 02-19-2021 ADVANCE DIRECTIVE DISCUSSION ADVANCE DIRECTIVE DISCUSSION [facility] Start: 02-09-2021 Simple repair f/e/e/n/l/m 2.5cm/< RPR F/E/E/N/L/M 2.5 CM/< [facility] Work Phone: Start: 01-06-2021 COVID-19 VACCINE (5 - Booster for Pfizer series) COVID-19 VACCINE (5 - Booster for Pfizer series) [facility] Start: 10-29-2016 LIPID SCREEN LIPID SCREEN [facility] Start: 09-28-2016 End: 09-28-2016 Appointment Appointment [facility] Work Phone: Start: 07-24-2016 End: 07-24-2016 Appointment Appointment [facility] Work Phone: Start: 07-24-2016 End: 09-18-2016 Follow Up Appt 2 months Follow Up Appt 2 months [facility] Work Phone: Start: 06-13-2016 End: 12-28-2015 *CBC w/Diff - oncology ONLY *CBC w/Diff - oncology ONLY [facility] Work Phone: Start: 06-13-2016 End: 12-28-2015 *CMP Complete Metabolic Panel *CMP Complete Metabolic Panel [facility] Work Phone: Start: 06-13-2016 End: 12-28-2015 Lactate dehydrogenase (LDH) *LDH -LDH (Lactate Dehydrogenase) [facility] Work Phone: Start: 06-13-2016 End: 12-28-2015 Magnesium *Magnesium [facility] Work Phone: Start: 06-13-2016 End: 12-28-2015 Urate *Uric Acid Blood [facility] Work Phone: Start: 05-15-2016 End: 06-08-2016 Follow Up Appt 2 months Follow Up Appt 2 months [facility] Work Phone: Start: 12-28-2015 End: 06-29-2015 *CBC with Differential *CBC with Differential [facility] Work Phone: Start: 12-28-2015 End: 06-29-2015 *CMP Complete Metabolic Panel *CMP Complete Metabolic Panel [facility] Work Phone: Start: 12-28-2015 End: 06-29-2015 Lactate dehydrogenase (LDH) *LDH -LDH (Lactate Dehydrogenase) [facility] Work Phone: Start: 12-28-2015 End: 06-29-2015 Magnesium *Magnesium [facility] Work Phone: Start: 12-28-2015 End: 06-29-2015 Urate *Uric Acid Blood [facility] Work Phone: Start: 11-15-2015 End: 12-12-2015 Follow Up Appt 6 months Follow Up Appt 6 months [facility] Work Phone: Start: 09-13-2015 End: 10-08-2015 Follow Up Appt 2 months Follow Up Appt 2 months [facility] Work Phone: Start: 07-26-2015 End: 10-07-2015 Follow Up Appt 2 months Follow Up Appt 2 months [facility] Work Phone: Start: 07-20-2015 End: 07-25-2015 Follow up Appt 1 week Follow up Appt 1 week [facility] Work Phone: Start: 06-29-2015 End: 2014 *CBC with Differential *CBC with Differential [facility] Work Phone: Start: 06-29-2015 End: 06-30-2015 *CMP Complete Metabolic Panel *CMP Complete Metabolic Panel [facility] Work Phone: Start: 06-29-2015 End: 06-29-2015 Lactate dehydrogenase (LDH) *LDH -LDH (Lactate Dehydrogenase) [facility] Work Phone: Start: 06-29-2015 End: 06-29-2015 Urate *Uric Acid Blood [facility] Work Phone: Start: 05-14-2015 End: 07-14-2015 Follow Up Appt Other Follow Up Appt Other [facility] Work Phone: Start: 04-07-2015 End: 04-07-2015 Mammogram, one breast Mammography; unilateral [facility] Work Phone: Start: 12-29-2014 End: 10-19-2014 *CBC with Differential *CBC with Differential [facility] Work Phone: Start: 12-29-2014 End: 12-22-2014 *CMP Complete Metabolic Panel *CMP Complete Metabolic Panel [facility] Work Phone: Start: 12-29-2014 End: 12-22-2014 Lactate dehydrogenase (LDH) *LDH -LDH (Lactate Dehydrogenase) [facility] Work Phone: Start: 12-29-2014 End: 12-22-2014 Urate *Uric Acid Blood [facility] Work Phone: Start: 10-07-2014 End: 10-19-2014 Follow Up Appt Other Follow Up Appt Other [facility] Work Phone: Start: 04-22-2014 End: 04-16-2014 *CBC with Differential *CBC with Differential [facility] Work Phone: Start: 04-03-2014 End: 10-19-2014 Follow Up Appt 6 months Follow Up Appt 6 months [facility] Work Phone: Start: 02-03-2014 End: 03-20-2014 Follow Up Appt Other Follow Up Appt Other [facility] Work Phone: Start: 10-31-2013 End: 03-20-2014 Follow Up Appt 3 months Follow Up Appt 3 months [facility] Work Phone: Start: 10-07-2013 End: 10-13-2013 Follow Up Appt 2 months Follow Up Appt 2 months [facility] Work Phone: Start: 09-29-2013 End: 09-24-2013 *CBC with Differential *CBC with Differential [facility] Work Phone: Start: 09-29-2013 End: 09-24-2013 25-Hydroxyvitamin D2+25-Hydroxyvitamin D3 [Mass/volume] in Serum or Plasma *Vitamin D (Calciferol) [facility] Work Phone: Start: 09-09-2013 End: 09-12-2013 Follow Up Appt 1 month Follow Up Appt 1 month [facility] Work Phone: Start: 08-25-2013 End: 08-25-2013 *CBC with Differential *CBC with Differential [facility] Work Phone: Start: 08-25-2013 End: 08-25-2013 *CMP Complete Metabolic Panel *CMP Complete Metabolic Panel [facility] Work Phone: Start: 08-25-2013 End: 08-25-2013 Lactate dehydrogenase (LDH) *LDH -LDH (Lactate Dehydrogenase) [facility] Work Phone: Start: 08-25-2013 End: 08-25-2013 Urate *Uric Acid Blood [facility] Work Phone: Start: 08-12-2013 End: 08-12-2013 Echo exam of abdomen US Abdomen, limited [facility] Work Phone: Start: 08-12-2013 End: 08-12-2013 Follow Up Appt 1 month Follow Up Appt 1 month [facility] Work Phone: Start: 07-21-2013 End: 07-21-2013 Ct abdomen w/o & w/dye CT Abdomen with and without Contrast [facility] Work Phone: Start: 07-21-2013 End: 07-21-2013 Follow up Appt 3 weeks Follow up Appt 3 weeks [facility] Work Phone: Start: 07-07-2013 End: 07-07-2013 Follow Up Appt 2 weeks Follow Up Appt 2 weeks [facility] Work Phone: Start: 06-24-2013 End: 06-27-2013 Bacteria anaerobode culture *CUAN - Culture, Anaerobic, Any Source [facility] Work Phone: Start: 06-24-2013 End: 06-27-2013 Bacterica wound culture *CUW - Culture, Wound (Aerobic) [facility] Work Phone: Start: 06-24-2013 End: 06-27-2013 Follow Up Appt 2 weeks Follow Up Appt 2 weeks [facility] Work Phone: Start: 06-10-2013 End: 06-27-2013 Follow Up Appt 2 weeks Follow Up Appt 2 weeks [facility] Work Phone: Start: 05-30-2013 End: 06-27-2013 Follow up Appt 1 week Follow up Appt 1 week [facility] Work Phone: Start: 05-26-2013 End: 05-28-2013 Follow Up Appt Other Follow Up Appt Other [facility] Work Phone: Start: 05-05-2013 End: 05-06-2013 Follow Up Appt Other Follow Up Appt Other [facility] Work Phone: Start: 11-30-2011 PNEUMOVAX AGE 65 AND OVER WITH 5YR LOOKBACK (#1) PNEUMOVAX AGE 65 AND OVER WITH 5YR LOOKBACK (#1) [facility] Start: 02-08-2011 Screening for osteoporosis Bone Density Screening [facility] Start: 2010 Pneumococcal Vaccine : 65+ (2 - PCV) Pneumococcal Vaccine: 65+ (2 - PCV) [facility] Start: 11-25-2009 End: 12-06-2009 Mammogram, Screening, both breasts Mammogram, Screening, both breasts [facility] Work Phone: Start: 11-30-2007 PNEUMOCOCCAL: 65+ (2 - PCV) PNEUMOCOCCAL: 65+ (2 - PCV) [facility] Start: 08-05-2007 SHINGRIX VACCINE (2 of 3) SHINGRIX VACCINE (2 of 3) [facility] Start: 2005 RSV Vaccine (1 - 1-d ose 60+ series) RSV Vaccine (1 - 1-dose 60+ series) [facility] Start: 1990 COLOGUARD (FIT-DNA) COLOGUARD (FIT-D NA) [facility] Start: [address] COLONOGRAPHY [facility] Start: 1990 FECAL OCCULT BLOOD FECAL OCCULT BLOO D [facility] Start: [address] 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 ADMINISTRATOR [place] DISEASE VISIT ANNUAL PCP TEAM CHRONIC DISEASE VISIT [facility] Start: 12-31-1963 Anxiety Screening Anxiety Screening [facility] Start: 12-31-1963 BP CONTROLLED (<130/80) BP CONTROLLE D (<130/80) [facility] Start: 12-31-1963 Depression Screening Depression Scre ening [facility] Start: 1957 Adult depression screening assessment DEPRESSION SCREENING [facility] End: 12-11-2024 CT Chest W contrast IV CT CHEST W IVCON Radiology Routine Mass of left chest wall 1 Occurrences starting 11/12/2023 until 12/11/2024 [facility] Work Phone: Comment on above: 1 Occurrences starti ng 11/12/2023 until 12/11/2024 End: 12-11-2024 CT Chest WO contrast CT CHEST WO IVCON Radiology Routine History of left breast cancer 1 Occurrences starting 11/12/2023 until 12/11/2024 [facility] Comment on above: 1 Occurrences starti ng 11/12/2023 until 12/11/2024 CT Chest WO contrast CT CHEST WO IVCON Radiology Routine History of left breast cancer 11/26/2023 8:32 AM EDT [facility] Work Phone: [facility] referral [facility] Work Phone: [facility] Immunizations Immunization Date Immunization Notes Care Provider Reagan murillo 11-13-2022 influenza virus vacc ine, unspecified formulation Kamila Mercado MD Work Phone: [facility] 02-09-2021 tetanus toxoid, redu melvin diphtheria toxoid, and acellular pertussis vaccine, adsorbed Dr. Jesus Peters Work Phone: [facility] 05-13-2020 Covid (Pfizer) Dr. Jesus watts Work Phone: [facility] 04-22-2020 Covid (Pfizer) Dr. Jesus watts Work Phone: [facility] 11-19-[address] Jesus Peters Work Phone: [facility] 11-19-[address] Ramonita Peters Work Phone: [facility] Work Phone: 11-19-2012 pneumococcal vaccine , unspecified formulation Dr. Jesus Peters Work Phone: [facility] 12-26-2010 influenza virus vacc ine, unspecified formulation Irasema Vela MD Work Phone: [facility] 01-27-2009 novel influenza-H1N1 -09, all formulations Irasema Vela MD Work Phone: [facility] Work Phone: 11-23-2008 influenza virus vacc ine, unspecified formulation Irasema Vela MD Work Phone: [facility] Work Phone: 12-25-2007 influenza virus vacc ine, unspecified formulation Irasema Vela MD Work Phone: [facility] Work Phone: 06-10-2007 zoster vaccine, live Tatianna Vela MD Work Phone: [facility] Work Phone: 12-18-2006 influenza virus vacc ine, unspecified formulation Irasema Vela MD Work Phone: [facility] Work Phone: 11-29-2006 pneumococcal polysaccharide vaccine, 23 valent Irasema Vela MD Work Phone: [facility] Work Phone: Payers Date Payer Category Payer Self-pay [id number] 2023 Medicare (Managed Care) MMO [employer] HMO Member Subscriber Plan / Payer (Effective 2023-Present) Name: Maddison Rivera Relation to Subscriber: Self Name: Maddison Rivera Payer ID: Not on file Type: HMO Address: [address] [place] [id number] 2023 Medicare [id number] 2022 Medicare [id number] 2021 Medicare MMO MEDICARE MMO MEDADVANTAGE O [id number] 2021-Present [phone] [address] [place] [id number] [facility] [id number] 2021 Medicare [id number] 2014 Unknown [id number] 2010 Medicare [id number] Medicare [id number] Unknown [id number] Unknown [id number] Unknown [id number] Unknown [id number] Unknown [id number] Unknown [id number] Unknown [id number] Unknown [id number] Unknown [id number] Unknown [id number] Unknown [id number] Unknown [id number] Social History Date Type Detail Facility [facility]: [facility] Start: 05-06-2021 Alcohol intake Current non-dr traffic rate analyst of alcohol (finding) [facility] Start: 1945 Sex Assigned At Not on file [facility] Start: 04-26-2021 End: 05-06-2021 Exposure to SARS-CoV-2 (event) Not sure [facility] Start: 02-09-2021 End: 01-09-2023 Tobacco smoking status NHIS Unknown if ever smoked [facility] Start: 06-28-2019 None [facility] Start: 06-28-2019 Alone [facility] Start: 07-24-2019 Non-smoker [facility] Start: 1945 Sex Assigned At Female [facility] Start: 05-21-2021 End: 05-31-2021 Exposure to SARS-CoV-2 (event) Unable to assess [facility] Start: 07-28-2022 End: 12-03-2023 Alcohol intake Lifetime non-drinker (finding) [facility] Start: 01-25-2020 End: 11-20-2022 History of Social function [facility] Start: 01-25-2020 End: 11-20-2022 Tobacco use panel [facility] National Score (1-100), lower number is lower risk Not on file [facility] Start: 05-26-2024 End: 06-11-2024 Sex Female (finding) [facility] Medical Equipment Procedure Code Equipment Code Equipment Origin al Text Equipment Identifier Dates Reconstruction, breast, bilateral, using TRAM flap AMNIOFILL,1000MG FDA Start: 06-27-2019 Reconstruction, breast, bilateral, using TRAM flap URMILA 3GRM HEMOSTAT ABS FDA Start: 06-27-2019 Reconstruction, breast, bilateral, using TRAM flap URMILA 3GRM HEMOSTAT ABS FDA Start: 06-27-2019 Reconstruction, breast, bilateral, using TRAM flap AMNIOFILL,1000MG FDA Start: 06-27-2019 Reconstruction, breast, bilateral, using TRAM flap URMILA 3GRM HEMOSTAT ABS FDA Start: 06-27-2019 Reconstruction, breast, bilateral, using TRAM flap URMILA 3GRM HEMOSTAT ABS FDA Start: 06-27-2019 Reconstruction, breast, bilateral, using TRAM flap AMNIOFILL,1000MG FDA Start: 06-27-2019 Reconstruction, breast, bilateral, using TRAM flap URMILA 3GRM HEMOSTAT ABS FDA Start: 06-27-2019 Reconstruction, breast, bilateral, using TRAM flap URMILA 3GRM HEMOSTAT ABS FDA Start: 06-27-2019 Reconstruction, breast, bilateral, using TRAM flap AMNIOFILL,1000MG FDA Start: 06-27-2019 Reconstruction, breast, bilateral, using TRAM flap URMILA 3GRM HEMOSTAT ABS FDA Start: 06-27-2019 Reconstruction, breast, bilateral, using TRAM flap URMILA 3GRM HEMOSTAT ABS FDA Start: 06-27-2019 Reconstruction, breast, bilateral, using TRAM flap AMNIOFILL,1000MG FDA Start: 06-27-2019 Reconstruction, breast, bilateral, using TRAM flap URMILA 3GRM HEMOSTAT ABS FDA Start: 06-27-2019 Reconstruction, breast, bilateral, using TRAM flap URMILA 3GRM HEMOSTAT ABS FDA Start: 06-27-2019 Reconstruction, breast, bilateral, using TRAM flap AMNIOFILL,1000MG FDA Start: 06-27-2019 Reconstruction, breast, bilateral, using TRAM flap URMILA 3GRM HEMOSTAT ABS FDA Start: 06-27-2019 Reconstruction, breast, bilateral, using TRAM flap URMILA 3GRM HEMOSTAT ABS FDA Start: 06-27-2019 Reconstruction, breast, bilateral, using TRAM flap AMNIOFILL,1000MG FDA Start: 06-27-2019 Reconstruction, breast, bilateral, using TRAM flap URMILA 3GRM HEMOSTAT ABS FDA Start: 06-27-2019 Reconstruction, breast, bilateral, using TRAM flap URMILA 3GRM HEMOSTAT ABS FDA Start: 06-27-2019 Reconstruction, breast, bilateral, using TRAM flap AMNIOFILL,1000MG FDA Start: 06-27-2019 Reconstruction, breast, bilateral, using TRAM flap URMILA 3GRM HEMOSTAT ABS FDA Start: 06-27-2019 Reconstruction, breast, bilateral, using TRAM flap URMILA 3GRM HEMOSTAT ABS FDA Start: 06-27-2019 Reconstruction, breast, bilateral, using TRAM flap AMNIOFILL,1000MG FDA Start: 06-27-2019 Reconstruction, breast, bilateral, using TRAM flap URMILA 3GRM HEMOSTAT ABS FDA Start: 06-27-2019 Reconstruction, breast, bilateral, using TRAM flap URMILA 3GRM HEMOSTAT ABS FDA Start: 06-27-2019 Reconstruction, breast, bilateral, using TRAM flap AMNIOFILL,1000MG FDA Start: 06-27-2019 Reconstruction, breast, bilateral, using TRAM flap URMILA 3GRM HEMOSTAT ABS FDA Start: 06-27-2019 Reconstruction, breast, bilateral, using TRAM flap URMILA 3GRM HEMOSTAT ABS FDA Start: 06-27-2019 Reconstruction, breast, bilateral, using TRAM flap AMNIOFILL,1000MG FDA Start: 06-27-2019 Reconstruction, breast, bilateral, using TRAM flap URMILA 3GRM HEMOSTAT ABS FDA Start: 06-27-2019 Reconstruction, breast, bilateral, using TRAM flap URMILA 3GRM HEMOSTAT ABS FDA Start: 06-27-2019 Reconstruction, breast, bilateral, using TRAM flap AMNIOFILL,1000MG FDA Start: 06-27-2019 Reconstruction, breast, bilateral, using TRAM flap URMILA 3GRM HEMOSTAT ABS FDA Start: 06-27-2019 Reconstruction, breast, bilateral, using TRAM flap URMILA 3GRM HEMOSTAT ABS FDA Start: 06-27-2019 Reconstruction, breast, bilateral, using TRAM flap AMNIOFILL,1000MG FDA Start: 06-27-2019 Reconstruction, breast, bilateral, using TRAM flap URMILA 3GRM HEMOSTAT ABS FDA Start: 06-27-2019 Reconstruction, breast, bilateral, using TRAM flap URMILA 3GRM HEMOSTAT ABS FDA Start: 06-27-2019 Reconstruction, breast, bilateral, using TRAM flap AMNIOFILL,1000MG FDA Start: 06-27-2019 Reconstruction, breast, bilateral, using TRAM flap URMILA 3GRM HEMOSTAT ABS FDA Start: 06-27-2019 Reconstruction, breast, bilateral, using TRAM flap URMILA 3GRM HEMOSTAT ABS FDA Start: 06-27-2019 Reconstruction, breast, bilateral, using TRAM flap AMNIOFILL,1000MG FDA Start: 06-27-2019 Reconstruction, breast, bilateral, using TRAM flap URMILA 3GRM HEMOSTAT ABS FDA Start: 06-27-2019 Reconstruction, breast, bilateral, using TRAM flap URMILA 3GRM HEMOSTAT ABS FDA Start: 06-27-2019 Prophylactic mastectomy URMILA 3GRM HEMOSTAT ABS FDA Start: 07-28-2019 Prophylactic mastectomy URMILA 3GRM HEMOSTAT ABS FDA Start: 07-28-2019 Prophylactic mastectomy URMILA 3GRM HEMOSTAT ABS FDA Start: 07-28-2019 Prophylactic mastectomy URMILA 3GRM HEMOSTAT ABS FDA Start: 07-28-2019 Prophylactic mastectomy URMILA 3GRM HEMOSTAT ABS FDA Start: 07-28-2019 Prophylactic mastectomy URMILA 3GRM HEMOSTAT ABS FDA Start: 07-28-2019 Prophylactic mastectomy URMILA 3GRM HEMOSTAT ABS FDA Start: 07-28-2019 Prophylactic mastectomy URMILA 3GRM HEMOSTAT ABS FDA Start: 07-28-2019 Prophylactic mastectomy URMILA 3GRM HEMOSTAT ABS FDA Start: 07-28-2019 Prophylactic mastectomy URMILA 3GRM HEMOSTAT ABS FDA Start: 07-28-2019 Prophylactic mastectomy URMILA 3GRM HEMOSTAT ABS FDA Start: 07-28-2019 Prophylactic mastectomy URMILA 3GRM HEMOSTAT ABS FDA Start: 07-28-2019 Prophylactic mastectomy URMILA 3GRM HEMOSTAT ABS FDA Start: 07-28-2019 Prophylactic mastectomy URMILA 3GRM HEMOSTAT ABS FDA Start: 07-28-2019 Prophylactic mastectomy URMILA 3GRM HEMOSTAT ABS FDA Start: 07-28-2019 Prophylactic mastectomy URMILA 3GRM HEMOSTAT ABS FDA Start: 07-28-2019 Prophylactic mastectomy URMILA 3GRM HEMOSTAT ABS FDA Start: 07-28-2019 Prophylactic mastectomy URMILA 3GRM HEMOSTAT ABS FDA Start: 07-28-2019 Prophylactic mastectomy URMILA 3GRM HEMOSTAT ABS FDA Start: 07-28-2019 Prophylactic mastectomy URMILA 3GRM HEMOSTAT ABS FDA Start: 07-28-2019 Prophylactic mastectomy URMILA 3GRM HEMOSTAT ABS FDA Start: 07-28-2019 Prophylactic mastectomy URMILA 3GRM HEMOSTAT ABS FDA Start: 07-28-2019 Prophylactic mastectomy URMILA 3GRM HEMOSTAT ABS FDA Start: 07-28-2019 Prophylactic mastectomy URMILA 3GRM HEMOSTAT ABS FDA Start: 07-28-2019 Prophylactic mastectomy URMILA 3GRM HEMOSTAT ABS FDA Start: 07-28-2019 Prophylactic mastectomy URMILA 3GRM HEMOSTAT ABS FDA Start: 07-28-2019 Prophylactic mastectomy URMILA 3GRM HEMOSTAT ABS FDA Start: 07-28-2019 Prophylactic mastectomy URMILA 3GRM HEMOSTAT ABS FDA Start: 07-28-2019 Prophylactic mastectomy URMILA 3GRM HEMOSTAT ABS FDA Start: 07-28-2019 Prophylactic mastectomy URMILA 3GRM HEMOSTAT ABS FDA Start: 07-28-2019 Prophylactic mastectomy URMILA 3GRM HEMOSTAT ABS FDA Start: 07-28-2019 Prophylactic mastectomy URMILA 3GRM HEMOSTAT ABS FDA Start: 07-28-2019 Prophylactic mastectomy URMILA 3GRM HEMOSTAT ABS FDA Start: 07-28-2019 Prophylactic mastectomy URMILA 3GRM HEMOSTAT ABS FDA Start: 07-28-2019 Prophylactic mastectomy URMILA 3GRM HEMOSTAT ABS FDA Start: 07-28-2019 Prophylactic mastectomy URMILA 3GRM HEMOSTAT ABS FDA Start: 07-28-2019 Prophylactic mastectomy URMILA 3GRM HEMOSTAT ABS FDA Start: 07-28-2019 Prophylactic mastectomy URMILA 3GRM HEMOSTAT ABS FDA Start: 07-28-2019 Prophylactic mastectomy URMILA 3GRM HEMOSTAT ABS FDA Start: 07-28-2019 Prophylactic mastectomy URMILA 3GRM HEMOSTAT ABS FDA Start: 07-28-2019 Prophylactic mastectomy URMILA 3GRM HEMOSTAT ABS FDA Start: 07-28-2019 Prophylactic mastectomy URMILA 3GRM HEMOSTAT ABS FDA Start: 07-28-2019 Prophylactic mastectomy URMILA 3GRM HEMOSTAT ABS FDA Start: 07-28-2019 Prophylactic mastectomy URMILA 3GRM HEMOSTAT ABS FDA Start: 07-28-2019 Prophylactic mastectomy URMILA 3GRM HEMOSTAT ABS FDA Start: 07-28-2019 Prophylactic mastectomy URMILA 3GRM HEMOSTAT ABS FDA Start: 07-28-2019 Prophylactic mastectomy URMILA 3GRM HEMOSTAT ABS FDA Start: 07-28-2019 Prophylactic mastectomy URMILA 3GRM HEMOSTAT ABS FDA Start: 07-28-2019 Prophylactic mastectomy URMILA 3GRM HEMOSTAT ABS FDA Start: 07-28-2019 Prophylactic mastectomy URMILA 3GRM HEMOSTAT ABS FDA Start: 07-28-2019 Prophylactic mastectomy URMILA 3GRM HEMOSTAT ABS FDA Start: 07-28-2019 Prophylactic mastectomy URMILA 3GRM HEMOSTAT ABS FDA Start: 07-28-2019 Prophylactic mastectomy URMILA 3GRM HEMOSTAT ABS FDA Start: 07-28-2019 Prophylactic mastectomy URMILA 3GRM HEMOSTAT ABS FDA Start: 07-28-2019 Prophylactic mastectomy URMILA 3GRM HEMOSTAT ABS FDA Start: 07-28-2019 Prophylactic mastectomy URMILA 3GRM HEMOSTAT ABS FDA Start: 07-28-2019 Prophylactic mastectomy URMILA 3GRM HEMOSTAT ABS FDA Start: 07-28-2019 Prophylactic mastectomy URMILA 3GRM HEMOSTAT ABS FDA Start: 07-28-2019 Prophylactic mastectomy URMILA 3GRM HEMOSTAT ABS FDA Start: 07-28-2019 Prophylactic mastectomy URMILA 3GRM HEMOSTAT ABS FDA Start: 07-28-2019 Equinox Glenosphere/Extende d Locking Cap 38mm [id number] Start: 08-31-2022 Stem Equinoxe 10 mm Humeral Sterile - [id number] Start: 08-31-2022 Plate Equinoxe Standard Glenoid Reverse - [id number] Start: 08-31-2022 Screw Equinoxe 4.5mm Black 22mm Bone Kit Compression Lock Cap Reverse - [id number] Start: 08-31-2022 Liner Equinoxe 3 8mm +2.5mm Humeral Reverse Shoulder - [id number] Start: 08-31-2022 Tray Equinoxe +0 mm Humeral Adapter Reverse Shoulder System - [id number] Start: 08-31-2022 Screw Equinoxe B one Lock Reverse Shoulder Glenosphere - [id number] Start: 08-31-2022 Kit Screw Revers e Torque Define Shoulder - [id number] Start: 08-31-2022 Screw Equinoxe 4.5mm Black 22mm Bone Kit Compression Lock Cap Reverse - [id number] Start: 08-31-2022 Screw Equinoxe 4.5mm [place] 26mm Bone Kit Compression Lock Cap Reverse - [id number] Start: 08-31-2022 Screw Equinoxe 4.5mm Blue 30mm Bone Kit Compression Lock Cap Reverse - [id number] Start: 08-31-2022 Clinical Notes 05-17-2010 to 11-14-2024 Telephone Encounter - Lonnie Barba PSS - 03/12/2024 1:37 PM ESTTelephone Encounter - Lonnie Barba PSS - 03/12/2024 1:37 PM ESTTelephone Encounter - Brandi Carbajal - 03/11/2024 4:38 PM EST Note Date & Type Note Facility 11-14-2024 Progress note [facility] 03-12-2024 Telephone encounter Note 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 OK to leave a detailed VM on cell phone [phone]. documented in this encounter [facility] 03-11-2024 Telephone encounter Note Patient is requesting disc and reports of 03/04/24 CT chest and 11/25/24 CT chest. 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 OK to leave a detailed VM on cell phone [phone]. [facility] 03-11-2024 Telephone encounter Note Spoke to Maddison - identifed by name and number. Told her results of chest CT. I have rec'd repeat CT scan in 6-12 months as per radiological recommendations. She states that she has noted a dry cough for years. I have recommended that she return to her PCP for possible workup. Patient acknowledges above. [facility] 03-11-2024 Miscellaneous Notes Spoke to Maddison - identifed by name and number. Told her results of chest CT. I have rec'd repeat CT scan in 6-12 months as per radiological recommendations. She states that she has noted a dry cough for years. I have recommended that she return to her PCP for possible workup. Patient acknowledges above. documented in this encounter [facility] 03-04-2024 History of Present illness Narrative Radiology Service Progress Note PATIENT NAME: Maddison Rivera DATE OF SERVICE: March 04, 2024 TIME: 10:31 AM PATIENT IDENTITY VERIFICATION COMPLETED USING TWO (2) IDENTIFIERS: Name and Date of confirmed by patient verbally. FALL SCREENING: Has the patient had 2 falls in the last year or 1 fall with injury or currently using an Ambulatory Assistive Device (Walker, Cane, Wheelchair, Crutches, etc.)? No PATIENT GENDER DATA: Assigned female at . status: : No status: NO. PATIENT RELEVANT IMPLANT DATA REVIEWED: Yes PATIENT PRESENTS WITH AN IMPLANTABLE OR ATTACHED DIRECTOR EMPLOYEE COMMUNICATIONS: No RADIOLOGY DEPARTMENT: CT; Exam(s) Completed: Chest PERIPHERAL IV DATA: Not applicable SIGNED BY: RT Velia(R) March 04, 2024 10:31 AM documented in this encounter [facility] 03-04-2024 Note HNO ID: [id number] Author: SADIE MENCHACA RT(R) Service: ? Author Type: Django Developer Type: Progress Notes Filed: 03/04/2024 10:32 Note Text: Radiology Service Progress Note PATIENT NAME: Maddison Rivera DATE OF SERVICE: March 04, 2024 TIME: 10:31 AM PATIENT IDENTITY VERIFICATION COMPLETED USING TWO (2) IDENTIFIERS: Name and Date of confirmed by patient verbally. FALL SCREENING: Has the patient had 2 falls in the last year or 1 fall with injury or currently using an Ambulatory Assistive Device (Walker, Cane, Wheelchair, Crutches, etc.)? No PATIENT GENDER DATA: Assigned female at . status: : No status: NO. PATIENT RELEVANT IMPLANT DATA REVIEWED: Yes PATIENT PRESENTS WITH AN IMPLANTABLE OR ATTACHED DIRECTOR EMPLOYEE COMMUNICATIONS: No RADIOLOGY DEPARTMENT: CT; Exam(s) Completed: Chest PERIPHERAL IV DATA: Not applicable SIGNED BY: RT Velia(Pat) March 04, 2024 10:31 AM [facility] 12-03-2023 History of Present illness Narrative Maddison Rivera 1945 REFERRING PHYSICIAN: No ref. provider found CHIEF COMPLAINT: Follow Up (Ct scan 11/26/23, ) HPI: The patient is a 77 year old female had presented with complaint of chest wall abnormality. Chest CT scan was obtained to rule out malignancy. Findings of the following: Bilateral subcentimeter pulmonary nodules: *4 mm nodule anterior right upper lobe (7:92) *3 mm nodule anterior right upper lobe (7:98) *4 mm nodule lateral left lower lobe (7:109) *6 mm nodule posterior left lower lobe (7:117) *5 mm nodule posterior left lower lobe (7:118) nths It is recommended by the radiologist for patient to undergo repeat chest CT in 3-6 months Patient denies shortness of breath or coughing up blood PAST MEDICAL HISTORY Diagnosis Date Allergies Arthritis Breast cancer (HCC) LEFT BREAST CA/MASTECTOMY Chronic pain LEFT SHOULDER DR PEREZ FOLLOWING Closed fracture of shaft of fibula with tibia 05/17/2010 Delayed emergence from general anesthesia VERY SLOW TO WAKE UP, ALLEGIC TO A LOT OF MEDS AND PAIN MEDS Headache HYPERTENSION NOS 02/22/2007 NOT CURRENTLY, NO MEDS Lung nodules Macular degeneration 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 LAPAROSCOPY SURG CHOLECYSTECTOMY Cholecystectomy, lap MASTECTOMY HX Bilateral OPTX ANKLE DISLOCATION W/REPAIR/INT/XTRNL FIXJ 2010 ORIF Ankle PAST SURGICAL HISTORY OF age 40 hysterectomy PAST SURGICAL HISTORY OF Bilateral achilles tendon replacements PAST SURGICAL HISTORY OF Left 07/28/2019 revision of Lt breast reconstruction and prophylactic Rt mastectomy PAST SURGICAL HISTORY OF Left JUN LLE, AFTER FALL PAST SURGICAL HISTORY OF Left PIN LEFT HAND, LEFT FINGER REPAIR PAST SURGICAL HISTORY OF Right RIGHT WRIST FX AND REPAIR, WITH PINS STEREOTACTIC CORE BIOPSY 11/14/2006 RIGHT VAGINAL HYSTERECTOMY Current Outpatient Medications Medication Sig celecoxib (CELEBREX) 200 mg capsule Take 200 mg by mouth every morning. 0700 AM evolocumab (REPATHA PUSHTRONEX) 420 mg/3.5 mL Inject 140 mg subcutaneously every 2 weeks. TAKES FIRST OF THE MONTH levothyroxine (SYNTHROID) 50 mcg tablet Take 50 mcg by mouth daily before breakfast. ubidecarenone Q-10 (CO Q-10) 10 mg cap Take by mouth once daily. (Patient not taking: Reported on 12/03/2023) antiox #8/om3/dha/epa/lut/zeax (PRESERVISION AREDS 2, OMEGA-3, ORAL) Take by mouth once daily. (Patient not taking: Reported on 12/03/2023) No current facility-administered medications for this visit. ALLERGIES: Clindamycin, Betadine [Povidone-Iodine], Chlorhexidine, Dilaudid Cough, Erythromycin Base, Fentanyl, Gemfibrozil, Hydromorphone, Iodinated Contrast Media, Iodine, Latex, Macrodantin [Nitrofurantoin Macrocrystalline], Mobic [Meloxicam], Morphine, Nitrofurantoin, Penicillins, Prednisone, Hhmmqit-Cqk-Wlu Reductase Inhibitors, Sulfa (Sulfonamide Antibiotics), Zinc, and Zostavax [Zoster Vaccine Live (Pf)] REVIEW OF SYSTEMS: Denies chest pain Denies shortness of breath PHYSICAL EXAMINATION: General: The patient is 77 year old female, well nourished, well hydrated in no acute distress. The patient is oriented to time, place, and person. VITALS: Blood pressure 138/78, pulse 106, temperature (!) 35.6 C (96 F), height 172.7 cm (5' 8), weight 76.9 kg (169 lb 9.6 oz), SpO2 97%. Body mass index is 25.79 kg/m . Head: Normal cephalic, atraumatic Eyes: pupils are equally round, sclera are clear/anicteric Neck is supple with no tracheal deviation Respiratory: Normal respiratory excursion and pattern. Abdominal exam: benign Extremities: no clubbing, cyanosis or edema. Neuro: non focal Psych: normal mood Assessment IMPRESSION: incidental findings of pulmonary nodules - subcentimeter PLAN: I have discussed the above with the patient. I have reassured patient that there is no major abnormality/recurrence of cancer of her chest wall. I have also reassured that it is unlikely she has lung cancer. I have placed order for surveillance chest CT for patient to obtain in 3-6 months. She acknowledges this. I have encouraged patient to return to clinic if any worsening signs/symptoms. Patient to return to her PCP for medical care. Patient acknowledges the above I have answered all questions to the patient s satisfaction and the patient has no further questions. . Diagnoses: (R91.8) Lung nodules (primary encounter diagnosis) Medical Decision Making: Problems: Moderate: New problem with uncertain prognosis Risk: Low: Low risk from testing/treatment Medical Decision Making Level: 3 - Low Kamila Mercado MD documented in this encounter [facility] 12-03-2023 Note HNO ID: [id number] Author: KAMILA MERCADO MD Service: ? Author Type: Physician Type: Progress Notes Filed: 12/07/2023 15:08 Note Text: Maddison Rivera 1945 REFERRING PHYSICIAN: No ref. provider found CHIEF COMPLAINT: Follow Up (Ct scan 11/26/23, ) HPI: The patient is a 77 year old female had presented with complaint of chest wall abnormality. Chest CT scan was obtained to rule out malignancy. Findings of the following: Bilateral subcentimeter pulmonary nodules: *4 mm nodule anterior right upper lobe (7:92) *3 mm nodule anterior right upper lobe (7:98) *4 mm nodule lateral left lower lobe (7:109) *6 mm nodule posterior left lower lobe (7:117) *5 mm nodule posterior left lower lobe (7:118) nths It is recommended by the radiologist for patient to undergo repeat chest CT in 3-6 months Patient denies shortness of breath or coughing up blood PAST MEDICAL HISTORY Diagnosis Date Allergies Arthritis Breast cancer (HCC) LEFT BREAST CA/MASTECTOMY Chronic pain LEFT SHOULDER DR PEREZ FOLLOWING Closed fracture of shaft of fibula with tibia 05/17/2010 Delayed emergence from general anesthesia VERY SLOW TO WAKE UP, ALLEGIC TO A LOT OF MEDS AND PAIN MEDS Headache HYPERTENSION NOS 02/22/2007 NOT CURRENTLY, NO MEDS Lung nodules Macular degeneration 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 LAPAROSCOPY SURG CHOLECYSTECTOMY Cholecystectomy, lap MASTECTOMY HX Bilateral OPTX ANKLE DISLOCATION W/REPAIR/INT/XTRNL FIXJ 2010 ORIF Ankle PAST SURGICAL HISTORY OF age 40 hysterectomy PAST SURGICAL HISTORY OF Bilateral achilles tendon replacements PAST SURGICAL HISTORY OF Left 07/28/2019 revision of Lt breast reconstruction and prophylactic Rt mastectomy PAST SURGICAL HISTORY OF Left JUN LLE, AFTER FALL PAST SURGICAL HISTORY OF Left PIN LEFT HAND, LEFT FINGER REPAIR PAST SURGICAL HISTORY OF Right RIGHT WRIST FX AND REPAIR, WITH PINS STEREOTACTIC CORE BIOPSY 11/14/2006 RIGHT VAGINAL HYSTERECTOMY Current Outpatient Medications Medication Sig celecoxib (CELEBREX) 200 mg capsule Take 200 mg by mouth every morning. 0700 AM evolocumab (REPATHA PUSHTRONEX) 420 mg/3.5 mL Inject 140 mg subcutaneously every 2 weeks. TAKES FIRST OF THE MONTH levothyroxine (SYNTHROID) 50 mcg tablet Take 50 mcg by mouth daily before breakfast. ubidecarenone Q-10 (CO Q-10) 10 mg cap Take by mouth once daily. (Patient not taking: Reported on 12/03/2023) antiox #8/om3/dha/epa/lut/zeax (PRESERVISION AREDS 2, OMEGA-3, ORAL) Take by mouth once daily. (Patient not taking: Reported on 12/03/2023) No current facility-administered medications for this visit. ALLERGIES: Clindamycin, Betadine [Povidone-Iodine], Chlorhexidine, Dilaudid Cough, Erythromycin Base, Fentanyl, Gemfibrozil, Hydromorphone, Iodinated Contrast Media, Iodine, Latex, Macrodantin [Nitrofurantoin Macrocrystalline], Mobic [Meloxicam], Morphine, Nitrofurantoin, Penicillins, Prednisone, Rpwfool-Dld-Poc Reductase Inhibitors, Sulfa (Sulfonamide Antibiotics), Zinc, and Zostavax [Zoster Vaccine Live (Pf)] REVIEW OF SYSTEMS: Denies chest pain Denies shortness of breath PHYSICAL EXAMINATION: General: The patient is 77 year old female, well nourished, well hydrated in no acute distress. The patient is oriented to time, place, and person. VITALS: Blood pressure 138/78, pulse 106, temperature (!) 35.6 ?C (96 ?F), height 172.7 cm (5' 8), weight 76.9 kg (169 lb 9.6 oz), SpO2 97%. Body mass index is 25.79 kg/m?. Head: Normal cephalic, atraumatic Eyes: pupils are equally round, sclera are clear/anicteric Neck is supple with no tracheal deviation Respiratory: Normal respiratory excursion and pattern. Abdominal exam: benign Extremities: no clubbing, cyanosis or edema. Neuro: non focal Psych: normal mood Assessment IMPRESSION: incidental findings of pulmonary nodules - subcentimeter PLAN: I have discussed the above with the patient. I have reassured patient that there is no major abnormality/recurrence of cancer of her chest wall. I have also reassured that it is unlikely she has lung cancer. I have placed order for surveillance chest CT for patient to obtain in 3-6 months. She acknowledges this. I have encouraged patient to return to clinic if any worsening signs/symptoms. Patient to return to her PCP for medical care. Patient acknowledges the above I have answered all questions to the patient?s satisfaction and the patient has (more content not included)... [facility] 11-26-2023 History of Present illness Narrative Radiology Service Progress Note PATIENT NAME: Maddison Rivera DATE OF SERVICE: November 26, 2023 TIME: 1:11 PM PATIENT IDENTITY VERIFICATION COMPLETED USING TWO (2) IDENTIFIERS: Name and Date of confirmed by patient verbally. FALL SCREENING: Has the patient had 2 falls in the last year or 1 fall with injury or currently using an Ambulatory Assistive Device (Walker, Cane, Wheelchair, Crutches, etc.)? No PATIENT GENDER DATA: Female. status: : No status: NO. PATIENT RELEVANT IMPLANT DATA REVIEWED: Yes PATIENT PRESENTS WITH AN IMPLANTABLE OR ATTACHED DIRECTOR EMPLOYEE COMMUNICATIONS: No RADIOLOGY DEPARTMENT: CT; Exam(s) Completed: Chest PERIPHERAL IV DATA: Not applicable SIGNED BY: BILLY Gunn) November 26, 2023 1:11 PM documented in this encounter [facility] 11-26-2023 Note HNO ID: [id number] Author: SADIE MENCHACA RT(R) Service: ? Author Type: Django Developer Type: Progress Notes Filed: 11/26/2023 13:11 Note Text: Radiology Service Progress Note PATIENT NAME: Maddison Rivera DATE OF SERVICE: November 26, 2023 TIME: 1:11 PM PATIENT IDENTITY VERIFICATION COMPLETED USING TWO (2) IDENTIFIERS: Name and Date of confirmed by patient verbally. FALL SCREENING: Has the patient had 2 falls in the last year or 1 fall with injury or currently using an Ambulatory Assistive Device (Walker, Cane, Wheelchair, Crutches, etc.)? No PATIENT GENDER DATA: Female. status: : No status: NO. PATIENT RELEVANT IMPLANT DATA REVIEWED: Yes PATIENT PRESENTS WITH AN IMPLANTABLE OR ATTACHED DIRECTOR EMPLOYEE COMMUNICATIONS: No RADIOLOGY DEPARTMENT: CT; Exam(s) Completed: Chest PERIPHERAL IV DATA: Not applicable SIGNED BY: RT Velia(R) November 26, 2023 1:11 PM [facility] 11-12-2023 Note HNO ID: [id number] Author: KAMILA MERCADO MD Service: ? Author Type: Physician Type: Progress Notes Filed: 11/13/2023 15:17 Note Text: Maddison Rivera 1945 REFERRING PHYSICIAN: No ref. provider found CHIEF COMPLAINT: Consult (Lump under left arm) HPI: The patient is a 77 year old female with a complaint of .left chest wall lesion. She also complains of left chest wall pain. She is s/p left breast mastectomy with TRAM reconstruction in 2019. Because of chronic pain at the site, she had TRAM removed in 2019 and also requested prophylactic right breast mastectomy. Right breast mastectomy pathology revealed foci of multifocal atypical lobular hyperplasia, foci of intraductal hyperplasia with atypia. She had complaint of left chest wall pain after removal of TRAM and she was seen by plastic surgery at [facility]. Recommendations were made for pain management and breast rehab/PT. She stated in follow up appointment that PT did help with pain. Patient states that she has pain in her lower rib cage site when wearing a prosthetic bra. She also notes a left breast subcutaneous mass and also an elongated area of soft tissue at the level of her lower left rib cage. She also notes a right sided skin lesion, < 1 cm that she is also concerned about. PAST MEDICAL HISTORY Diagnosis Date Allergies Arthritis Breast cancer (HCC) LEFT BREAST CA/MASTECTOMY Chronic pain LEFT SHOULDER DR PEREZ FOLLOWING Closed fracture of shaft of fibula with tibia 05/17/2010 Delayed emergence from general anesthesia VERY SLOW TO WAKE UP, ALLEGIC TO A LOT OF MEDS AND PAIN MEDS Headache HYPERTENSION NOS 02/22/2007 NOT CURRENTLY, NO MEDS Macular degeneration Osteonecrosis (HCC) LEFT SHOULDER DR PEREZ FOLLOWS Osteopenia OSTEOARTHRITIS IRASEMA JALLOH PURE HYPERCHOLESTEROLEMIA 08/06/2006 DR PETERS, Thyroid disease DR PETERS, Vitamin D deficiency CURRENTLY WNL PAST SURGICAL HISTORY Procedure Laterality Date ANES ARTHROSCOPIC TOTAL SHOULDER REPLACEMENT Left 08/31/2022 left shoulder BLEPHAROPLASTY UPPER EYELID W/EXCESSIVE SKIN BREAST LUMPECTOMY HX Left 06/27/2019 CATARACT SURGERY, COMPLEX 2005 bilateral COLONOSCOPY 12/15/2022 no repeat due to age. LAPAROSCOPY SURG CHOLECYSTECTOMY Cholecystectomy, lap MASTECTOMY HX Bilateral OPTX ANKLE DISLOCATION W/REPAIR/INT/XTRNL FIXJ 2010 ORIF Ankle PAST SURGICAL HISTORY OF age 40 hysterectomy PAST SURGICAL HISTORY OF Bilateral achilles tendon replacements PAST SURGICAL HISTORY OF Left 07/28/2019 revision of Lt breast reconstruction and prophylactic Rt mastectomy PAST SURGICAL HISTORY OF Left JUN LLE, AFTER FALL PAST SURGICAL HISTORY OF Left PIN LEFT HAND, LEFT FINGER REPAIR PAST SURGICAL HISTORY OF Right RIGHT WRIST FX AND REPAIR, WITH PINS STEREOTACTIC CORE BIOPSY 11/14/2006 RIGHT VAGINAL HYSTERECTOMY Current Outpatient Medications Medication Sig ubidecarenone Q-10 (CO Q-10) 10 mg cap Take by mouth once daily. antiox #8/om3/dha/epa/lut/zeax (PRESERVISION AREDS 2, OMEGA-3, ORAL) Take by mouth once daily. evolocumab (REPATHA PUSHTRONEX) 420 mg/3.5 mL Inject 420 mg subcutaneously once every month. TAKES FIRST OF THE MONTH levothyroxine (SYNTHROID) 50 mcg tablet Take 50 mcg by mouth daily before breakfast. celecoxib (CELEBREX) 200 mg capsule Take 200 mg by mouth every morning. 0700 AM (Patient not taking: Reported on 11/12/2023) No current facility-administered medications for this visit. ALLERGIES: Clindamycin, Betadine [Povidone-Iodine], Chlorhexidine, Dilaudid Cough, Erythromycin Base, Fentanyl, Gemfibrozil, Hydromorphone, Iodinated Contrast Media, Iodine, Latex, Macrodantin [Nitrofurantoin Macrocrystalline], Mobic [Meloxicam], Morphine, Nitrofurantoin, Penicillins, Prednisone, Arlqckb-Fyl-Kvz Reductase Inhibitors, Sulfa (Sulfonamide Antibiotics), Zinc, and Zostavax [Zoster Vaccine Live (Pf)] The review of systems data was entered by the nurse and reviewed by va Nursing Notes: Raquel Wadsworth LPN 11/12/2023 4:01 PM Signed REVIEW OF SYSTEMS: General: The patient denies fatigue, denies weight loss, denies weight gain, denies feeling hot, and denies feelings of cold. Eyes: The patient denies glaucoma, denies eye injury/surgery, wears glasses or contacts. Ear/Nose/Throat: The patient notes allergies, denies hayfever, denies ear infections, and denies bloody noses. Cardiovascular: The patient denies chest pain, denies heart disease, denies high blood pressure,denies cardiac stent, denies prior heart attack, denies irregular heart beat, notes high cholesterol, denies poor circulation, denies heart failure, other cardiac issues, denies claudication, denies cold feet, denies peripheral arterial stent. Respiratory: The patient denies tuberculosis, denies pneumonia, denies frequent cough, denies pulmonary embolism, denies shortness of breath, and denies coughing up blood. Gastrointestinal: The (more content not included)... [facility] 11-12-2023 History of Present illness Narrative Maddison Rivera 1945 REFERRING PHYSICIAN: No ref. provider found CHIEF COMPLAINT: Consult (Lump under left arm) HPI: The patient is a 77 year old female with a complaint of .left chest wall lesion. She also complains of left chest wall pain. She is s/p left breast mastectomy with TRAM reconstruction in 2019. Because of chronic pain at the site, she had TRAM removed in 2019 and also requested prophylactic right breast mastectomy. Right breast mastectomy pathology revealed foci of multifocal atypical lobular hyperplasia, foci of intraductal hyperplasia with atypia. She had complaint of left chest wall pain after removal of TRAM and she was seen by plastic surgery at [facility]. Recommendations were made for pain management and breast rehab/PT. She stated in follow up appointment that PT did help with pain. Patient states that she has pain in her lower rib cage site when wearing a prosthetic bra. She also notes a left breast subcutaneous mass and also an elongated area of soft tissue at the level of her lower left rib cage. She also notes a right sided skin lesion, < 1 cm that she is also concerned about. PAST MEDICAL HISTORY Diagnosis Date Allergies Arthritis Breast cancer (HCC) LEFT BREAST CA/MASTECTOMY Chronic pain LEFT SHOULDER DR PEREZ FOLLOWING Closed fracture of shaft of fibula with tibia 05/17/2010 Delayed emergence from general anesthesia VERY SLOW TO WAKE UP, ALLEGIC TO A LOT OF MEDS AND PAIN MEDS Headache HYPERTENSION NOS 02/22/2007 NOT CURRENTLY, NO MEDS Macular degeneration 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 LAPAROSCOPY SURG CHOLECYSTECTOMY Cholecystectomy, lap MASTECTOMY HX Bilateral OPTX ANKLE DISLOCATION W/REPAIR/INT/XTRNL FIXJ 2010 ORIF Ankle PAST SURGICAL HISTORY OF age 40 hysterectomy PAST SURGICAL HISTORY OF Bilateral achilles tendon replacements PAST SURGICAL HISTORY OF Left 07/28/2019 revision of Lt breast reconstruction and prophylactic Rt mastectomy PAST SURGICAL HISTORY OF Left JUN LLE, AFTER FALL PAST SURGICAL HISTORY OF Left PIN LEFT HAND, LEFT FINGER REPAIR PAST SURGICAL HISTORY OF Right RIGHT WRIST FX AND REPAIR, WITH PINS STEREOTACTIC CORE BIOPSY 11/14/2006 RIGHT VAGINAL HYSTERECTOMY Current Outpatient Medications Medication Sig ubidecarenone Q-10 (CO Q-10) 10 mg cap Take by mouth once daily. antiox #8/om3/dha/epa/lut/zeax (PRESERVISION AREDS 2, OMEGA-3, ORAL) Take by mouth once daily. evolocumab (REPATHA PUSHTRONEX) 420 mg/3.5 mL Inject 420 mg subcutaneously once every month. TAKES FIRST OF THE MONTH levothyroxine (SYNTHROID) 50 mcg tablet Take 50 mcg by mouth daily before breakfast. celecoxib (CELEBREX) 200 mg capsule Take 200 mg by mouth every morning. 0700 AM (Patient not taking: Reported on 11/12/2023) No current facility-administered medications for this visit. ALLERGIES: Clindamycin, Betadine [Povidone-Iodine], Chlorhexidine, Dilaudid Cough, Erythromycin Base, Fentanyl, Gemfibrozil, Hydromorphone, Iodinated Contrast Media, Iodine, Latex, Macrodantin [Nitrofurantoin Macrocrystalline], Mobic [Meloxicam], Morphine, Nitrofurantoin, Penicillins, Prednisone, Ufwttqp-Ayq-Qej Reductase Inhibitors, Sulfa (Sulfonamide Antibiotics), Zinc, and Zostavax [Zoster Vaccine Live (Pf)] The review of systems data was entered by the nurse and reviewed by me Nursing Notes: Raquel Wadsworth LPN 11/12/2023 4:01 PM Signed REVIEW OF SYSTEMS: General: The patient denies fatigue, denies weight loss, denies weight gain, denies feeling hot, and denies feelings of cold. Eyes: The patient denies glaucoma, denies eye injury/surgery, wears glasses or contacts. Ear/Nose/Throat: The patient notes allergies, denies hayfever, denies ear infections, and denies bloody noses. Cardiovascular: The patient denies chest pain, denies heart disease, denies high blood pressure,denies cardiac stent, denies prior heart attack, denies irregular heart beat, notes high cholesterol, denies poor circulation, denies heart failure, other cardiac issues, denies claudication, denies cold feet, denies peripheral arterial stent. Respiratory: The patient denies tuberculosis, denies pneumonia, denies frequent cough, denies pulmonary embolism, denies shortness of breath, and denies coughing up blood. Gastrointestinal: The patient denies difficulty swallowing, denies acid reflux, denies ulcers, denies vomiting, denies jaundice/hepatitis, denies gallbladder problems, denies black or tarry stools, denies hemorrhoids, denies bleeding from rectum, denies diverticulitis, denies constipation, denies diarrhea, denies loss of stool control, and denies hernias. Kidney/Bladder: The patient denies kidney stones, denies urine infections, and denies bloody urine. Skin: The patient denies a history of skin cancer, denies bleeding/changing moles, and denies a history of skin rash. Neurologic: The patient denies a history of epilepsy/convulsions, denies headaches, denies head/spinal injuries, and denies stroke/TIA. Psychiatric: The patient denies psychiatric medications, denies depression, and denies voices, denies substance abuse. Endocrine: The patient notes thyroid disorders, denies diabetes, and denies hormonal problems. Hematologic: The patient denies a history of bruising, denies bleeding, and denies anemia, denies blood clots. Infections: The patient denies a history of measles and mumps, denies rheumatic fever, and denies sexually transmitted diseases. Musculoskeletal: The patient notes back pain/injury, notes back problems, denies sciatica, notes knee/foot trouble, denies arthritis, or denies gout. When was patient's last Mammogram screening? 2013 Last Colonoscopy: 2022 Raquel Wadsworth LPN PHYSICAL EXAMINATION: General: The patient is 77 year old female, well nourished, well hydrated in no acute distress. The patient is oriented to time, place, and person. VITALS: Blood pressure 141/84, pulse 85, temperature 36.7 C (98.1 F), height 170.2 cm (5' 7), weight 76.7 kg (169 lb), SpO2 96%. Body mass index is 26.47 kg/m . Head: Normal cephalic, atraumatic Eyes: pupils are equally round, sclera are clear/anicteric Neck is supple with no tracheal deviation Chest: bilateral mastectomies, healed incisional sites, patient points to skin lesion of right chest wall - < 1 cm keratotic appearing slightly pigmented; patient points to left lower rib cage area/upper abdomen to transversely elongated localized soft tissue mass - this may be remnant scar tissue, she also points to subcutaneous mass about 1 cm of mid left chest Cardiac: normal heart sounds, regular Respiratory: Normal respiratory excursion and pattern. Abdominal exam: benign Extremities: no clubbing, cyanosis or edema. Neuro: non focal Psych: normal mood Assessment IMPRESSION: left chest wall pain and localized mass PLAN: I have discussed the above with the patient. For the small left chest subcutaneous mass and right chest wall skin lesion, I have offered excisions to be done in the office using local anesthesia. For the larger localized soft tissue mass of lower rib cage, will obtain chest CT as patient has concerns about recurrence of cancer. Patient to follow up with me after CT scan obtained. Will not use dye as patient has allergies to the dye and also refuses prednisone prior to the procedure. Will obtain CT chest Patient to follow up with me after Patient acknowledges the above I have answered all questions to the patient s satisfaction and the patient has no further uestions. I have confirmed and edited as necessary, the PFSH and ROS obtained by others. . Diagnoses: (R22.2) Mass of left chest wall (primary encounter diagnosis) (Z85.3) History of left breast cancer (Z90.13) Status post mastectomy, bilateral I spent a total of 26 minutes on the date of the service which included preparing to see the patient with review of any pertinent laboratory studies/radiological imaging/medical records from other medical facilities such as [facility], [id number] patient care, obtaining oral medical history from the patient in this encounter, performing a medically appropriate examination, counseling and educating the patient/family/caregiver, and ordering and/or scheduling of medications/tests/procedures, and completing appropriate medical documentation. Kamila Mercado MD documented in this encounter [facility] 11-12-2023 Nurse Note REVIEW OF SYSTEMS: General: The patient denies fatigue, denies weight loss, denies weight gain, denies feeling hot, and denies feelings of cold. Eyes: The patient denies glaucoma, denies eye injury/surgery, wears glasses or contacts. Ear/Nose/Throat: The patient notes allergies, denies hayfever, denies ear infections, and denies bloody noses. Cardiovascular: The patient denies chest pain, denies heart disease, denies high blood pressure,denies cardiac stent, denies prior heart attack, denies irregular heart beat, notes high cholesterol, denies poor circulation, denies heart failure, other cardiac issues, denies claudication, denies cold feet, denies peripheral arterial stent. Respiratory: The patient denies tuberculosis, denies pneumonia, denies frequent cough, denies pulmonary embolism, denies shortness of breath, and denies coughing up blood. Gastrointestinal: The patient denies difficulty swallowing, denies acid reflux, denies ulcers, denies vomiting, denies jaundice/hepatitis, denies gallbladder problems, denies black or tarry stools, denies hemorrhoids, denies bleeding from rectum, denies diverticulitis, denies constipation, denies diarrhea, denies loss of stool control, and denies hernias. Kidney/Bladder: The patient denies kidney stones, denies urine infections, and denies bloody urine. Skin: The patient denies a history of skin cancer, denies bleeding/changing moles, and denies a history of skin rash. Neurologic: The patient denies a history of epilepsy/convulsions, denies headaches, denies head/spinal injuries, and denies stroke/TIA. Psychiatric: The patient denies psychiatric medications, denies depression, and denies voices, denies substance abuse. Endocrine: The patient notes thyroid disorders, denies diabetes, and denies hormonal problems. Hematologic: The patient denies a history of bruising, denies bleeding, and denies anemia, denies blood clots. Infections: The patient denies a history of measles and mumps, denies rheumatic fever, and denies sexually transmitted diseases. Musculoskeletal: The patient notes back pain/injury, notes back problems, denies sciatica, notes knee/foot trouble, denies arthritis, or denies gout. When was patient's last Mammogram screening? 2013 Last Colonoscopy: 2022 Raquel Wadsworth LPN [facility] 11-12-2023 Nurse Note REVIEW OF SYSTEMS: General: The patient denies fatigue, denies weight loss, denies weight gain, denies feeling hot, and denies feelings of cold. Eyes: The patient denies glaucoma, denies eye injury/surgery, wears glasses or contacts. Ear/Nose/Throat: The patient notes allergies, denies hayfever, denies ear infections, and denies bloody noses. Cardiovascular: The patient denies chest pain, denies heart disease, denies high blood pressure,denies cardiac stent, denies prior heart attack, denies irregular heart beat, notes high cholesterol, denies poor circulation, denies heart failure, other cardiac issues, denies claudication, denies cold feet, denies peripheral arterial stent. Respiratory: The patient denies tuberculosis, denies pneumonia, denies frequent cough, denies pulmonary embolism, denies shortness of breath, and denies coughing up blood. Gastrointestinal: The patient denies difficulty swallowing, denies acid reflux, denies ulcers, denies vomiting, denies jaundice/hepatitis, denies gallbladder problems, denies black or tarry stools, denies hemorrhoids, denies bleeding from rectum, denies diverticulitis, denies constipation, denies diarrhea, denies loss of stool control, and denies hernias. Kidney/Bladder: The patient denies kidney stones, denies urine infections, and denies bloody urine. Skin: The patient denies a history of skin cancer, denies bleeding/changing moles, and denies a history of skin rash. Neurologic: The patient denies a history of epilepsy/convulsions, denies headaches, denies head/spinal injuries, and denies stroke/TIA. Psychiatric: The patient denies psychiatric medications, denies depression, and denies voices, denies substance abuse. Endocrine: The patient notes thyroid disorders, denies diabetes, and denies hormonal problems. Hematologic: The patient denies a history of bruising, denies bleeding, and denies anemia, denies blood clots. Infections: The patient denies a history of measles and mumps, denies rheumatic fever, and denies sexually transmitted diseases. Musculoskeletal: The patient notes back pain/injury, notes back problems, denies sciatica, notes knee/foot trouble, denies arthritis, or denies gout. When was patient's last Mammogram screening? 2013 Last Colonoscopy: 2022 Raquel Wadsworth LPN documented in this encounter [facility] 12-15-2022 Nurse Note Pt arrived in phase 2 fully awake in the supine position. Denies pain/ nausea. SR up x 2, call light in reach. Mariaelena Vazquez RN documented in this encounter [facility] 12-15-2022 History and physical note UPDATED PROCEDURAL SEDATION HISTORY AND PHYSICAL EXAMINATION SERVICE DATE: 12/15/2022 SERVICE TIME: 11:55 PHYSICAL EXAM MUST BE COMPLETED ON ADMISSION PROCEDURE: colonoscopy, possible biopsies Procedure Indications: screening for colon cacer The History and Physical (completed in the past 30 days) has been reviewed and the patient has been examined. The contents accurately reflect the patient's condition with the following additions or revisions since the H&P was completed. ASA Class: ASA Class:: Patient with mild systemic disease Examination indicates no changes. AIRWAY: Airway Visualization of Uvula: Yes Mouth opening greater than 2 fingerbreadths: Yes Neck Full Range of Motion: Yes LUNGS: Lungs clear to auscultation CARDIAC: Regular rhythm,Regular rate Provisional Diagnosis/Treatment Plan: colonoscopy, possible biopsies SEDATION GOAL: Moderate This H&P can be found in the Electronic Medical Record . SIGNATURE: Kamila Mercado MD PATIENT NAME: Maddison Rivera DATE: December 15, 2022 TIME: 11:56 AM Source Note - Kamila Mercado MD - 12/15/2022 12:00 PM EDT HISTORY AND PHYSICAL Maddison Rivera 1945 REFERRING PHYSICIAN: Self CHIEF COMPLAINT: Consult HPI: The patient is a 76 year old female presents requiring screening colonoscopy, her last colonoscopy was in 2011. She denies blood in her stools; she denies abdominal pain; she denies changes in bowel habits. Patient had recent left shoulder surgery, in August, and requires prophylactic antibiotics PAST MEDICAL HISTORY PAST MEDICAL HISTORY Diagnosis Date Breast cancer (HCC) LEFT BREAST CA/MASTECTOMY Chronic pain LEFT SHOULDER DR PEREZ FOLLOWING Closed fracture of shaft of fibula with tibia 05/17/2010 Delayed emergence from general anesthesia VERY SLOW TO WAKE UP, ALLEGIC TO A LOT OF MEDS AND PAIN MEDS Headache HYPERTENSION NOS 02/22/2007 NOT CURRENTLY, NO MEDS Osteonecrosis (HCC) LEFT SHOULDER DR PEREZ FOLLOWS Osteopenia OSTEOARTHRITIS DR VELA,IRASEMA PURE HYPERCHOLESTEROLEMIA 08/06/2006 DR PTEERS, Thyroid disease DR PETERS, Vitamin D deficiency CURRENTLY WNL PAST SURGICAL HISTORY PAST SURGICAL HISTORY Procedure Laterality Date ANES ARTHROSCOPIC TOTAL SHOULDER REPLACEMENT Left 08/31/2022 left shoulder BLEPHAROPLASTY UPPER EYELID W/EXCESSIVE SKIN BREAST LUMPECTOMY HX Left 06/27/2019 CATARACT SURGERY, COMPLEX 2006 bilateral LAPAROSCOPY SURG CHOLECYSTECTOMY Cholecystectomy, lap MASTECTOMY HX Bilateral OPTX ANKLE DISLOCATION W/REPAIR/INT/XTRNL FIXJ 2010 ORIF Ankle PAST SURGICAL HISTORY OF age 40 hysterectomy PAST SURGICAL HISTORY OF Bilateral achilles tendon replacements PAST SURGICAL HISTORY OF Left 07/28/2019 revision of Lt breast reconstruction and prophylactic Rt mastectomy PAST SURGICAL HISTORY OF Left JUN LLE, AFTER FALL PAST SURGICAL HISTORY OF Left PIN LEFT HAND, LEFT FINGER REPAIR PAST SURGICAL HISTORY OF Right RIGHT WRIST FX AND REPAIR, WITH PINS STEREOTACTIC CORE BIOPSY 11/14/2006 RIGHT CURRENT MEDICATIONS Current Outpatient Medications Medication Sig celecoxib (CELEBREX) 200 mg capsule Take 200 mg by mouth every morning. 0700 AM evolocumab (REPATHA PUSHTRONEX) 420 mg/3.5 mL Inject 420 mg subcutaneously once every month. TAKES FIRST OF THE MONTH levothyroxine (SYNTHROID) 50 mcg tablet Take 50 mcg by mouth daily before breakfast. ciprofloxacin HCl (CIPRO) 500 mg tablet Take 1 tablet by mouth available for use prior to procedure for 3 days. No current facility-administered medications for this visit. ALLERGIES: Clindamycin, Betadine [Povidone-Iodine], Chlorhexidine, Dilaudid Cough, Erythromycin Base, Fentanyl, Gemfibrozil, Hydromorphone, Iodinated Contrast Media, Iodine, Latex, Macrodantin [Nitrofurantoin Macrocrystalline], Mobic [Meloxicam], Morphine, Nitrofurantoin, Penicillins, Prednisone, Pzgchjc-Ftz-Lvn Reductase Inhibitors, Sulfa (Sulfonamide Antibiotics), Zinc, and Zostavax [Zoster Vaccine Live (Pf)] PERSONAL HISTORY: SOCIAL HISTORY Social History Tobacco Use Smoking status: Never Smokeless tobacco: Never Vaping Use Vaping Use: Never used Substance Use Topics Alcohol use: Never Drug use: Never FAMILY HISTORY FAMILY HISTORY Problem Relation Age of Onset Colon Cancer Mother Hypertension Mother Diabetes Mother Lipids Mother Heart Father ID age 55 Lipids Brother Diabetes Sister Diabetes Brother Heart Brother The review of systems data was entered by the nurse and reviewed by va Nursing Notes: Shasha Gilbert RN 11/20/2022 10:37 AM Signed REVIEW OF SYSTEMS: General: The patient denies fatigue, denies weight loss, denies weight gain, denies feeling hot, and denies feelings of cold. Eyes: The patient denies glaucoma, NOTES eye injury/surgery, wears glasses or contacts. Ear/Nose/Throat: The patient NOTES allergies, denies hayfever, denies ear infections, and denies bloody noses. Cardiovascular: The patient denies chest pain, denies heart disease, denies high blood pressure,denies cardiac stent, denies prior heart attack, denies irregular heart beat, NOTES high cholesterol, denies poor circulation, denies heart failure, other cardiac issues, denies claudication, denies cold feet, denies peripheral arterial stent. Respiratory: The patient denies tuberculosis, denies pneumonia, denies frequent cough, denies pulmonary embolism, NOTES shortness of breath, and denies coughing up blood. Gastrointestinal: The patient denies difficulty swallowing, denies acid reflux, denies ulcers, denies vomiting, denies jaundice/hepatitis, NOTES gallbladder problems, denies black or tarry stools, denies hemorrhoids, denies bleeding from rectum, denies diverticulitis, denies constipation, denies diarrhea, denies loss of stool control, and denies hernias. Kidney/Bladder: The patient denies kidney stones, NOTES urine infections, and denies bloody urine. Skin: The patient denies a history of skin cancer, NOTES bleeding/changing moles, and denies a history of skin rash. Neurologic: The patient denies a history of epilepsy/convulsions, denies headaches, denies head/spinal injuries, and denies stroke/TIA. Psychiatric: The patient denies psychiatric medications, denies depression, and denies voices, denies substance abuse. Endocrine: The patient NOTES thyroid disorders, denies diabetes, and denies hormonal problems. Hematologic: The patient denies a history of bruising, denies bleeding, and denies anemia, denies blood clots. Infections: The patient NOTES a history of measles and mumps, denies rheumatic fever, and denies sexually transmitted diseases. Musculoskeletal: The patient denies back pain/injury, denies back problems, denies sciatica, denies knee/foot trouble, NOTES arthritis, or denies gout. When was patient's last Mammogram screening? 2019 S/P Bilateral mastectomy Last Colonoscopy: 10 years ago Shasha Gilbert RN PHYSICAL EXAMINATION: General: The patient is 76 year old female, well nourished, well hydrated in no acute distress. The patient is oriented to time, place, and person. VITALS: Blood pressure 134/82, pulse 80, temperature 36.2 C (97.2 F), height 172.7 cm (5' 8), weight 79.1 kg (174 lb 6.4 oz), SpO2 96 %. Body mass index is 26.52 kg/m . Head: Normal cephalic, atraumatic Eyes: pupils are equally round, sclera are clear/anicteric, wearing glasses Neck is supple with no tracheal deviation Cardiac: normal heart sounds, regular Respiratory: normal breath sounds, normal respiratory excursion and pattern. Abdominal exam: benign Extremities: no clubbing, cyanosis or edema. Skin: <1 cm rounded, nodular, protuberant skin lesion of left thigh Neuro: non focal Psych: normal mood IMPRESSION: screening for colon cancer PLAN: I have discussed the above with the patient. I have offered colonoscopy , possible biopsies I have explained the procedure to the patient. I have counseled the patient as to the risks of the procedure, including but not limited to: infection, bleeding, injury to any intrabdominal organs such as liver/spleen, perforation of the GI tract, inability to complete the procedure, complications of anesthesia, etc. - the patient understands. I have prescribed Cipro for patient to take for prophylaxis given recent shoulder surgery. I have answered all questions to the patient s satisfaction and the patient has no further questions. I have answered all questions to the patient s satisfaction and the patient has no further questions. Kamila Mercado MD HISTORY AND PHYSICAL Maddison Rivera 1945 REFERRING PHYSICIAN: Self CHIEF COMPLAINT: Consult HPI: The patient is a 76 year old female presents requiring screening colonoscopy, her last colonoscopy was in 2011. She denies blood in her stools; she denies abdominal pain; she denies changes in bowel habits. Patient had recent left shoulder surgery, in August, and requires prophylactic antibiotics PAST MEDICAL HISTORY PAST MEDICAL HISTORY Diagnosis Date Breast cancer (HCC) LEFT BREAST CA/MASTECTOMY Chronic pain LEFT SHOULDER DR PEREZ FOLLOWING Closed fracture of shaft of fibula with tibia 05/17/2010 Delayed emergence from general anesthesia VERY SLOW TO WAKE UP, ALLEGIC TO A LOT OF MEDS AND PAIN MEDS Headache HYPERTENSION NOS 02/22/2007 NOT CURRENTLY, NO MEDS Osteonecrosis (HCC) LEFT SHOULDER DR PEREZ FOLLOWS Osteopenia OSTEOARTHRITIS DR VELAIRASEMA PERAZA PURE HYPERCHOLESTEROLEMIA 08/06/2006 DR PETERS, Thyroid disease DR PETERS, Vitamin D deficiency CURRENTLY WNL PAST SURGICAL HISTORY PAST SURGICAL HISTORY Procedure Laterality Date ANES ARTHROSCOPIC TOTAL SHOULDER REPLACEMENT Left 08/31/2022 left shoulder BLEPHAROPLASTY UPPER EYELID W/EXCESSIVE SKIN BREAST LUMPECTOMY HX Left 06/27/2019 CATARACT SURGERY, COMPLEX 2006 bilateral LAPAROSCOPY SURG CHOLECYSTECTOMY Cholecystectomy, lap MASTECTOMY HX Bilateral OPTX ANKLE DISLOCATION W/REPAIR/INT/XTRNL FIXJ 2010 ORIF Ankle PAST SURGICAL HISTORY OF age 40 hysterectomy PAST SURGICAL HISTORY OF Bilateral achilles tendon replacements PAST SURGICAL HISTORY OF Left 07/28/2019 revision of Lt breast reconstruction and prophylactic Rt mastectomy PAST SURGICAL HISTORY OF Left JUN LLE, AFTER FALL PAST SURGICAL HISTORY OF Left PIN LEFT HAND, LEFT FINGER REPAIR PAST SURGICAL HISTORY OF Right RIGHT WRIST FX AND REPAIR, WITH PINS STEREOTACTIC CORE BIOPSY 11/14/2006 RIGHT CURRENT MEDICATIONS Current Outpatient Medications Medication Sig celecoxib (CELEBREX) 200 mg capsule Take 200 mg by mouth every morning. 0700 AM evolocumab (REPATHA PUSHTRONEX) 420 mg/3.5 mL Inject 420 mg subcutaneously once every month. TAKES FIRST OF THE MONTH levothyroxine (SYNTHROID) 50 mcg tablet Take 50 mcg by mouth daily before breakfast. ciprofloxacin HCl (CIPRO) 500 mg tablet Take 1 tablet by mouth available for use prior to procedure for 3 days. No current facility-administered medications for this visit. ALLERGIES: Clindamycin, Betadine [Povidone-Iodine], Chlorhexidine, Dilaudid Cough, Erythromycin Base, Fentanyl, Gemfibrozil, Hydromorphone, Iodinated Contrast Media, Iodine, Latex, Macrodantin [Nitrofurantoin Macrocrystalline], Mobic [Meloxicam], Morphine, Nitrofurantoin, Penicillins, Prednisone, Vbqrvhv-Aqw-Ucn Reductase Inhibitors, Sulfa (Sulfonamide Antibiotics), Zinc, and Zostavax [Zoster Vaccine Live (Pf)] PERSONAL HISTORY: SOCIAL HISTORY Social History Tobacco Use Smoking status: Never Smokeless tobacco: Never Vaping Use Vaping Use: Never used Substance Use Topics Alcohol use: Never Drug use: Never FAMILY HISTORY FAMILY HISTORY Problem Relation Age of Onset Colon Cancer Mother Hypertension Mother Diabetes Mother Lipids Mother Heart Father ID age 55 Lipids Brother Diabetes Sister Diabetes Brother Heart Brother The review of systems data was entered by the nurse and reviewed by me Nursing Notes: Shasha Gilbert RN 11/20/2022 10:37 AM Signed REVIEW OF SYSTEMS: General: The patient denies fatigue, denies weight loss, denies weight gain, denies feeling hot, and denies feelings of cold. Eyes: The patient denies glaucoma, NOTES eye injury/surgery, wears glasses or contacts. Ear/Nose/Throat: The patient NOTES allergies, denies hayfever, denies ear infections, and denies bloody noses. Cardiovascular: The patient denies chest pain, denies heart disease, denies high blood pressure,denies cardiac stent, denies prior heart attack, denies irregular heart beat, NOTES high cholesterol, denies poor circulation, denies heart failure, other cardiac issues, denies claudication, denies cold feet, denies peripheral arterial stent. Respiratory: The patient denies tuberculosis, denies pneumonia, denies frequent cough, denies pulmonary embolism, NOTES shortness of breath, and denies coughing up blood. Gastrointestinal: The patient denies difficulty swallowing, denies acid reflux, denies ulcers, denies vomiting, denies jaundice/hepatitis, NOTES gallbladder problems, denies black or tarry stools, denies hemorrhoids, denies bleeding from rectum, denies diverticulitis, denies constipation, denies diarrhea, denies loss of stool control, and denies hernias. Kidney/Bladder: The patient denies kidney stones, NOTES urine infections, and denies bloody urine. Skin: The patient denies a history of skin cancer, NOTES bleeding/changing moles, and denies a history of skin rash. Neurologic: The patient denies a history of epilepsy/convulsions, denies headaches, denies head/spinal injuries, and denies stroke/TIA. Psychiatric: The patient denies psychiatric medications, denies depression, and denies voices, denies substance abuse. Endocrine: The patient NOTES thyroid disorders, denies diabetes, and denies hormonal problems. Hematologic: The patient denies a history of bruising, denies bleeding, and denies anemia, denies blood clots. Infections: The patient NOTES a history of measles and mumps, denies rheumatic fever, and denies sexually transmitted diseases. Musculoskeletal: The patient denies back pain/injury, denies back problems, denies sciatica, denies knee/foot trouble, NOTES arthritis, or denies gout. When was patient's last Mammogram screening? 2019 S/P Bilateral mastectomy Last Colonoscopy: 10 years ago Shasha Gilbert RN PHYSICAL EXAMINATION: General: The patient is 76 year old female, well nourished, well hydrated in no acute distress. The patient is oriented to time, place, and person. VITALS: Blood pressure 134/82, pulse 80, temperature 36.2 C (97.2 F), height 172.7 cm (5' 8), weight 79.1 kg (174 lb 6.4 oz), SpO2 96 %. Body mass index is 26.52 kg/m . Head: Normal cephalic, atraumatic Eyes: pupils are equally round, sclera are clear/anicteric, wearing glasses Neck is supple with no tracheal deviation Cardiac: normal heart sounds, regular Respiratory: normal breath sounds, normal respiratory excursion and pattern. Abdominal exam: benign Extremities: no clubbing, cyanosis or edema. Skin: <1 cm rounded, nodular, protuberant skin lesion of left thigh Neuro: non focal Psych: normal mood IMPRESSION: screening for colon cancer PLAN: I have discussed the above with the patient. I have offered colonoscopy , possible biopsies I have explained the procedure to the patient. I have counseled the patient as to the risks of the procedure, including but not limited to: infection, bleeding, injury to any intrabdominal organs such as liver/spleen, perforation of the GI tract, inability to complete the procedure, complications of anesthesia, etc. - the patient understands. I have prescribed Cipro for patient to take for prophylaxis given recent shoulder surgery. I have answered all questions to the patient s satisfaction and the patient has no further questions. I have answered all questions to the patient s satisfaction and the patient has no further questions. Kamila Mercado MD documented in this encounter [facility] 11-27-2022 History of Present illness Narrative Maddison is here for excision of right thigh skin lesion of uncertain behavior. PROCEDURE NOTE: Description of procedure: After informed consent was obtained, patient was brought to the procedure room. Appropriate time out protocol was followed. Patient was placed in the supine position. The site of the lesion was then cleansed with a sterile surgical skin preparation. Appropriate sterile surgical drapes were placed. The skin and subcutaneous tissues at the site were then infiltrated with local anesthetic. A skin incision was made at the site in an elliptical fashion to entirely incorporate the lesion with a 15 blade scalpel. The incision was carried down to the subcutaneous tissues. The lesion was 0.6 cm in size. The tissue was then removed and placed in formalin to be forwarded to pathology for analysis. Hemostasis was controlled by pressure. The skin edges were then reapproximated with interrupted 3-0 nylon suture in a simple fashion. Sterile dressing was applied. Patient tolerated procedure well. Plan: Wound care instructions given by clinic staff. Patient will be undergoing colonoscopy in two weeks with me. I will address wound at that time and discuss pathology report with her. Patient acknowledges above. documented in this encounter [facility] 11-27-2022 Instructions Kristyn Manning LPN - 11/27/2022 10:34 AM EDT Instructions After SKIN EXCISION-SUTURES You can remove the dressing in two days. Please use the following pain regimen: Acetaminophen (Tylenol) 650 mg, then in 3-4 hours take 600 mg ibuprofen (Motrin), then in 3-4 hours take 650 mg acetaminophen, then in 3-4 hours take 600 mg ibuprofen and so on and continue this over 1-2 days. If the dressing becomes soaked or had significant drainage, the dressing should be changed. If there is minor bleeding from this skin edge, you should hold pressure on the incision until the bleeding stops. If there is continued bleeding, you should contact our office immediately. You do not need to leave a dressing on the wound after two days. If the wound shows signs of redness, inflammation, or purulent drainage, you should contact our office immediately. You should keep the wound dry for the first two days. After that time, you may wash the wound with gentle soap and water. The wound should not be immersed in a pool, bathtub, or even hot tub. We prefer to check the incision and remove the stitches in our office when ready. We will do your follow up with your colonoscopy on 12/15/22 Please do not remove the stitches yourself without approval from our office. documented in this encounter [facility] 11-27-2022 Nurse Note UNIVERSAL PROTOCOL / SAFETY CHECKLIST Procedure to be Performed: Excision of skin lesion of left thigh Sign In: A Moment of CARE was completed. Personnel directly involved with the procedure wore the appropriate PPE (Personal Protective Equipment). No special equipment needed. Patient/Surrogate Stated/Verified: PATIENT VERIFIED(optional for EMERGENT procedures): Patient name, Date of , Relevant allergies, and The intended procedure Time Out Communication: Intended patient and procedure match the source documents. Consent documented and matches the intended procedure. Relevant labs, photos, and/or imaging studies have been reviewed. Correct side/site marked and visible. Medications required for procedure verified. No fire risk assessment and interventions applicable. No implant(s) inserted. Sign Out: SIGN OUT (optional for EMERGENT procedures): All specimen containers correctly labeled. No instruments, equipment or retained foreign bodies applicable. Post-procedure follow-up management communicated and Plan of Care Visit completed when applicable. Kristyn Manning LPN documented in this encounter [facility] 11-24-2022 Miscellaneous Notes Images from the original note were not included. Kamila Mercado MD You 1 hour ago (3:04 PM) Can tell Maddison I ordered lots of Cipro for her... Message to Maddison. Dali Bobo RN Maddison called. She is scheduled to have a colonoscopy on 12/15/2022. She had a shoulder replacement on 08/31/2022 and needs to take antibiotics prior to any surgical procedures. The information that she has read states that she has to take antibiotics for 5 days before the colonoscopy and she would like clarification about this. If it is true, she needs the antibiotic called into [facility] in [place]. Advised patient that she should contact her orthopaedic surgeon, but she states Dr. Mercado gave me the antibiotics for my skin excision next week, so why would she not give me the antibiotic for my colonoscopy? Please update the patient. A detailed message may be left on her voicemail if she does not answer. Dali Bobo RN documented in this encounter [facility] 08-31-2022 Note HNO ID: [id number] Author: Jay Gamez APRN.CRNA Service: ? Author Type: Nurse Volunteer Manager Type: Anesthesia Procedure Notes Filed: 08/31/2022 8:18 AM Note Text: ANESTHESIOLOGY PROCEDURE NOTE Airway General Information Procedure Start Time/Medication Administration: 08/31/2022 7:48 AM Procedure End Time: 08/31/2022 7:48 AM Patient location during procedure: OR Timeout Performed Pre-procedure: timeout performed Consent Obtained: Yes Patient identity confirmed: arm band Staffing PULP PLANT SUPERVISOR: Jay Gamez APRN.PULP PLANT SUPERVISOR Performed by: MADELINE Indications and Patient Condition Indications for airway management: anesthesia Preoxygenated: yes anesthesia circuit Patient position: sniffing Method: asleep Cricoid Pressure: No Manual In-Line Stabilization: No Difficult Mask: No Airway Accessory: oral airway Final Airway Details Final airway type: endotracheal airway Final Endotracheal Airway: ETT Cuffed: yes Successful intubation technique: direct laryngoscopy Devices used: intubating stylet Endotracheal tube insertion site: oral Blade: Marian Blade size: #3 ETT size (mm): 7.0 Measured from: lips Measurement (cm): 22 Placement verified by: chest auscultation and capnometry Cormack-Lehane Classification: grade IIa - partial view of glottis Number of attempts at approach: 1 Failed airway: no Unrecognized esophageal intubation: no Airway not difficult Medications Administered lidocaine topical gel 2% urojet (XYLOCAINE, GLYDO) - MUCOUS MEMBRANE 4 mL - 08/31/2022 7:48:00 AM SIGNATURE: Jay Gamez APRN.PULP PLANT SUPERVISOR PATIENT NAME: Maddison Rivera DATE: August 31, 2022 TIME: 8:17 AM CSN: [id number] [facility] 08-31-2022 Note HNO ID: [id number] Author: Caity Krueger RN Service: Nursing Author Type: Registered Nurse Type: Nursing Progress Note Filed: 08/31/2022 7:31 AM Note Text: Dr. Banuelos did left interscalene block with ultrasound from . [facility] 08-31-2022 Note HNO ID: [id number] Author: Christiano Banuelos MD Service: Anesthesiology Author Type: Physician Type: Anesthesia Procedure Notes Filed: 08/31/2022 7:15 AM Note Text: ANESTHESIOLOGY PROCEDURE NOTE Peripheral Nerve Block General Information Procedure Start Time/Medication Administration: 08/31/2022 7:10 AM Procedure End time: 08/31/2022 7:15 AM Patient location during procedure: pre-op Timeout Performed Pre-procedure: timeout performed Consent Obtained: Yes Patient identity confirmed: arm band and patient Reason for block: post-op pain management/at surgeon's request Staffing Anesthesiologist: Christiano Banuelos MD Performed by: anesthesiologist Preparation Sterility Preparation: hand hygiene performed prior to procedure, sterile gloves, drapes, and procedure tray, surgical cap used, mask used, sterile drape used during line insertion, skin prep agent completely dried prior to procedure Site Prep: Chloraprep Pre-Procedure Neuro Exam Location: LUE Sensory: intact Motor: intact Procedure Details Patient Position: supine Monitoring: Pulse OX, EKG and NIBP Block Type Upper Extremity: brachial plexus Approach: interscalene Laterality: left Injection Technique: single-shot Ultrasound Guided: Yes Image in Chart: yes Local Infiltration: Yes Needle Needle Type: blunt and echogenic Needle Gauge: 22 G Needle Length: 50 mm Needle Localization: ultrasound Assessment Injection assessment: negative aspiration, no paresthesia on injection, incremental injection and local visualized surrounding nerve on ultrasound Paresthesia: none Medications Administered bupivacaine (PF) 0.5 % (5 mg/mL) injection - peripheral nerve block 10 mL - 08/31/2022 7:15:00 AM bupivacaine liposome (PF) 1.3 % (13.3 mg/mL) injection (EXPAREL) - INFILTRATION 133 mg - 08/31/2022 7:15:00 AM SIGNATURE: Christiano Banuelos MD PATIENT NAME: Maddison Rivera DATE: August 31, 2022 TIME: 7:03 AM CSN: [id number] [facility] 08-30-2022 Note HNO ID: [id number] Author: Gale Trivedi RN Service: ? Author Type: Registered Nurse Type: Progress Notes Filed: 08/30/2022 2:21 PM Note Text: PRE-PROCEDURE INSTRUCTIONS TO PREPARE FOR YOUR PROCEDURE: Your arrival time for your procedure is 0545. Do NOT eat any solid foods after MIDNIGHT the night prior to your procedure - this includes gum or mints. You can drink clear liquids* up until 0345, which is 2 hours before your arrival time. *Clear liquids = water, carbohydrate drink (sports drink that is clear or yellow in color), Ensure Pre-Surgery (given by CHEYANNE or your ), fruit juice without pulp (apple/cranberry), clear tea, black coffee (no cream). NO CARBONATED BEVERAGES AND NO ALCOHOL. Shower the morning of the procedure, put on clean clothes, and have clean sheets for your bed to help prevent infection after your procedure. Leave all valuables such as jewelry including rings, piercings, wallets, and purses at home. Wear comfortable, loose-fitting clothing. If you wear glasses or contacts, please bring a case. SPECIAL INSTRUCTIONS: If instructed, bring your first voided urine specimen with you. If you were provided skin preparation to use prior to your procedure, complete this as directed. If you were provided Ensure Pre-Surgery drink, you need to drink this at n/a stated unable to drink . This should be consumed quickly (in less than 5 minutes, rather than sipped over time) If you use crutches or a walker, bring them with you. If you have a home CPAP/BIPAP machine, bring it with you. If you were instructed to complete a fleets enema or bowel prep, complete as directed. Bring copy of Living Will/Power of Visual Developer. Do not smoke or chew. If you use tobacco, quit or at least cut down before surgery. Do not smoke or chew after midnight the day before your surgery. This effects bleeding, infection, healing, and so much more. Do not take any Diet or Herbal Supplements 2 weeks prior to your surgery date. Please notify your physician if there is any change in your physical condition such as a cold, cough, fever, sore throat, or skin irritation near the surgical site. Visitors under the age of 14 are restricted in the Surgery Center. UPON ARRIVAL: Access to [facility] is located on [address] Hot Stick Worker parking is available for your convenience from 5am-5pm- there is a $5.00 charge for this service. Take the elevators directly inside the entrance to the 1st Floor Surgery Lobby. Sign in at the podium located to the left when you get off the elevators. A payment may be expected at the time of service. One visitor may come back to the preoperative area with you. The preoperative staff will be reviewing your medical history, please let them know if you prefer not to have a visitor with you during this time. Once you are ready for surgery, two visitors at a time are permitted in your preoperative room. PATIENT MEDICATION INSTRUCTIONS Please read below carefully for your personalized instructions. Medications: If you are on blood thinner or anticoagulants including aspirin, please confirm with your surgical team on when to stop these medications. Unless instructed differently by your surgical team, stay on all of your medications until your surgery. Pre-Surgery Med Instructions Medication Instructions celecoxib (CELEBREX) 200 mg capsule Follow Surgeon's instructions evolocumab (REPATHA PUSHTRONEX) 420 mg/3.5 mL levothyroxine (SYNTHROID) 50 mcg tablet Take morning of surgery with a sip of water, no other fluids If you have any medication changes between receiving these instructions and your surgery date, please provide this updated information with the nurse who calls you the week day prior to your surgical procedure so we can update your list and provide you with updated instructions for the morning of your procedure. [facility] 08-10-2022 Note HNO ID: [id number] Author: Loraine Claros APRN.ANA Service: ? Author Type: Nurse Practitioner Type: Progress Notes Filed: 08/10/2022 11:56 AM Note Text: Summary: medical clearance [facility] 08-07-2022 Note HNO ID: [id number] Author: Syl Tapia MD Service: ? Author Type: Physician Type: Progress Notes Filed: 08/08/2022 3:18 PM Note Text: PACC Consult SERVICE DATE: 08/07/2022 SERVICE TIME: 2:03 PM PRIMARY CARE PHYSICIAN: Jesus Peters MD REASON FOR VISIT: Maddison Rivera is a 76 year old female who is scheduled for L Reverse TSA - 08/31/22 at the request of Dr. Perez for consultation. My final recommendation will be communicated back to the requesting physician by way of shared medical record or letter. The patient has the following: ACTIVE PROBLEM LIST Senile Osteoporosis Pure Hypercholesterolemia Abnormal Mammogram, Unspecified Headache(784.0) Unspecified Diffuse Connective Tissue Disease (Hcc) Herpes Zoster Without Mention of Complication Unspecified Vitamin D Deficiency Unspecified Essential Hypertension Unspecified Cataract Diffuse Cystic Mastopathy Abnormality of Gait Subjective CHIEF COMPLAINT: L Reverse TSA - [place] - 08/31/22 76 yo woman, non-smoker. PMHx: Left Brest Ca/Mastectomy - delayed emergence GA, HTN, osteonecrosis of left shoulder, HLP (Repatha), thyroid disease. 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 Also see old fracture proximal humurus. Don't have Chris's notes to review. She was seen by Safety Fire Boss Ata 05/10. PAST MEDICAL HISTORY Diagnosis Date Breast cancer (HCC) LEFT BREAST CA/MASTECTOMY Chronic pain LEFT SHOULDER DR PEREZ FOLLOWING Closed fracture of shaft of fibula with tibia 05/17/2010 Delayed emergence from general anesthesia VERY SLOW TO WAKE UP, ALLEGIC TO A LOT OF MEDS AND PAIN MEDS HYPERTENSION NOS 02/22/2007 NOT CURRENTLY, NO MEDS Osteonecrosis (HCC) LEFT SHOULDER DR PEREZ FOLLOWS Osteopenia OSTEOARTHRITIS DR VELA,IRASEMA PURE HYPERCHOLESTEROLEMIA 08/06/2006 DR PETERS, Thyroid disease DR PETERS, Vitamin D deficiency CURRENTLY WNL PAST SURGICAL HISTORY Procedure Laterality Date BLEPHAROPLASTY UPPER EYELID W/EXCESSIVE SKIN BREAST LUMPECTOMY HX Left 06/27/2019 CATARACT SURGERY, COMPLEX 2006 bilateral LAPAROSCOPY SURG CHOLECYSTECTOMY Cholecystectomy, lap MASTECTOMY HX Bilateral OPTX ANKLE DISLOCATION W/REPAIR/INT/XTRNL FIXJ 2011 ORIF Ankle PAST SURGICAL HISTORY OF age 40 hysterectomy PAST SURGICAL HISTORY OF Bilateral achilles tendon replacements PAST SURGICAL HISTORY OF Left 07/28/2019 revision of Lt breast reconstruction and prophylactic Rt mastectomy PAST SURGICAL HISTORY OF Left JUN LLE, AFTER FALL PAST SURGICAL HISTORY OF Left PIN LEFT HAND, LEFT FINGER REPAIR PAST SURGICAL HISTORY OF Right RIGHT WRIST FX AND REPAIR, WITH PINS STEREOTACTIC CORE BIOPSY 11/14/2006 RIGHT FAMILY HISTORY Problem Relation Age of Onset Colon Cancer Mother Hypertension Mother Diabetes Mother Lipids Mother Heart Father ID age 55 Lipids Brother Diabetes Sister Diabetes Brother Heart Brother SOCIAL HISTORY: Social History Tobacco Use Smoking status: Never Smokeless tobacco: Never Vaping Use Vaping Use: Never used Substance Use Topics Alcohol use: Never Drug use: Never Prior to Admission medications as of 08/07/22 1241 Medication Sig Last Dose Taking celecoxib (CELEBREX) 200 mg capsule Take 200 mg by mouth every morning. 0700 AM Yes evolocumab (REPATHA PUSHTRONEX) 420 mg/3.5 mL Inject 420 mg subcutaneously once every month. TAKES FIRST OF THE MONTH Yes levothyroxine (SYNTHROID) 50 mcg tablet Take 50 mcg by mouth daily before breakfast. Yes No medication comments found. ALLERGIES Allergen Reactions Clindamycin Rash, Itching, Other: See Comments High Fever Betadine [Povidone-* Rash Chlorhexidine Itching Dilaudid Cough Vomiting N/V Erythromycin Base Hives Fentanyl Other: See Comments VERY HARD TO WAKE UP Gemfibrozil GI Upset, Vomiting, Other: See Comments Nausea, MUSCLE ACHES Hydromorphone Diarrhea, Vomiting, Other: See Comments Nausea Iodinated Contrast * Rash Iodine Other: See Comments BLISTERS Latex Rash Macrodantin [Nitrof* GI Upset Mobic [Meloxicam] Other: See Comments Nausea Morphine Diarrhea, Vomiting SEE'S SPIDERS Nitrofurantoin Vomiting Penicillins Hives Prednisone Other: See Comments PH SYCOTIC Hcvexti-Awt-Gel Red* Other: See Comments Myalgias Sulfa (Sulfonamide * Other: See Comments Unknown - occurred during childhood Zinc GI Upset Zostavax [Zoster Va* Vomiting, Other: See Comments Pt developed a rash on 06-10-07 within ten minutes of the injection. It involved the arms, chest and legs. It was intensely pruritic. HTN AND SOB Objective PHYSICAL EXAM: VITALS: BP 156/74 Pulse 72 Resp 18 Wt 169 lb 6.4 oz (76.8kg) SpO2 95% Diagnostic tests reviewed for today's visit: CBC Latest Ref Rng AND Units 08/07/2022 WBC 3.70 - 11.00 k/uL 10.79 RBC 3.90 - 5.20 m/uL 5.27(H) HEMOGLOBIN 11.5 - 15.5 g/dL 15.8(H) HEMOGLOBIN, FLORENCIA 11.5 - 15.5 (more content not included)... [facility] 08-07-2022 Note HNO ID: [id number] Author: Syl Tapia MD Service: ? Author Type: Physician Type: Progress Notes Filed: 08/08/2022 10:29 AM Note Text: Summary: DOS MEDS PATIENT MEDICATION INSTRUCTIONS Please read below carefully for your personalized instructions. Medications: If you are on blood thinner or anticoagulants including aspirin, please confirm with your surgical team on when to stop these medications. Unless instructed differently by your surgical team, stay on all of your medications until your surgery. Pre-Surgery Med Instructions Medication Instructions celecoxib (CELEBREX) 200 mg capsule Follow Surgeon's instructions evolocumab (REPATHA PUSHTRONEX) 420 mg/3.5 mL levothyroxine (SYNTHROID) 50 mcg tablet Take morning of surgery with a sip of water, no other fluids If you have any medication changes between receiving these instructions and your surgery date, please provide this updated information with the nurse who calls you the week day prior to your surgical procedure so we can update your list and provide you with updated instructions for the morning of your procedure. [facility] 08-07-2022 Note HNO ID: [id number] Author: Syl Tapia MD Service: ? Author Type: Physician Type: Progress Notes Filed: 08/08/2022 10:29 AM Note Text: L Reverse TSA - [place] - 08/31/22 76 yo woman, non-smoker. PMHx: Left Brest Ca/Mastectomy - delayed emergence GA, HTN, osteonecrosis of left shoulder, HLP (Repatha), thyroid disease. 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 Also see old fracture proximal humurus. Don't have Chris's notes to review. She was seen by Safety Fire Boss Ata 05/10. [facility] 08-07-2022 History of Present illness Narrative PACC Consult SERVICE DATE: 08/07/2022 SERVICE TIME: 2:03 PM PRIMARY CARE PHYSICIAN: Jesus Peters MD REASON FOR VISIT: Maddison Rivera is a 76 year old female who is scheduled for L Reverse TSA - 08/31/22 at the request of Dr. Perez for consultation. My final recommendation will be communicated back to the requesting physician by way of shared medical record or letter. The patient has the following: ACTIVE PROBLEM LIST Senile Osteoporosis Pure Hypercholesterolemia Abnormal Mammogram, Unspecified Headache(784.0) Unspecified Diffuse Connective Tissue Disease (Hcc) Herpes Zoster Without Mention of Complication Unspecified Vitamin D Deficiency Unspecified Essential Hypertension Unspecified Cataract Diffuse Cystic Mastopathy Abnormality of Gait Subjective CHIEF COMPLAINT: L Reverse TSA - [place] - 08/31/22 76 yo woman, non-smoker. PMHx: Left Brest Ca/Mastectomy - delayed emergence GA, HTN, osteonecrosis of left shoulder, HLP (Repatha), thyroid disease. 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 Also see old fracture proximal humurus. Don't have Chris's notes to review. She was seen by Safety Fire Boss Ata 05/10. PAST MEDICAL HISTORY Diagnosis Date Breast cancer (HCC) LEFT BREAST CA/MASTECTOMY Chronic pain LEFT SHOULDER DR PEREZ FOLLOWING Closed fracture of shaft of fibula with tibia 05/17/2010 Delayed emergence from general anesthesia VERY SLOW TO WAKE UP, ALLEGIC TO A LOT OF MEDS AND PAIN MEDS HYPERTENSION NOS 02/22/2007 NOT CURRENTLY, NO MEDS Osteonecrosis (HCC) LEFT SHOULDER DR PEREZ FOLLOWS Osteopenia OSTEOARTHRITIS DR VELA,IRASEMA PURE HYPERCHOLESTEROLEMIA 08/06/2006 DR PETERS, Thyroid disease DR PETERS, Vitamin D deficiency CURRENTLY WNL PAST SURGICAL HISTORY Procedure Laterality Date BLEPHAROPLASTY UPPER EYELID W/EXCESSIVE SKIN BREAST LUMPECTOMY HX Left 06/27/2019 CATARACT SURGERY, COMPLEX 2005 bilateral LAPAROSCOPY SURG CHOLECYSTECTOMY Cholecystectomy, lap MASTECTOMY HX Bilateral OPTX ANKLE DISLOCATION W/REPAIR/INT/XTRNL FIXJ 2010 ORIF Ankle PAST SURGICAL HISTORY OF age 40 hysterectomy PAST SURGICAL HISTORY OF Bilateral achilles tendon replacements PAST SURGICAL HISTORY OF Left 07/28/2019 revision of Lt breast reconstruction and prophylactic Rt mastectomy PAST SURGICAL HISTORY OF Left JUN LLE, AFTER FALL PAST SURGICAL HISTORY OF Left PIN LEFT HAND, LEFT FINGER REPAIR PAST SURGICAL HISTORY OF Right RIGHT WRIST FX AND REPAIR, WITH PINS STEREOTACTIC CORE BIOPSY 11/14/2006 RIGHT FAMILY HISTORY Problem Relation Age of Onset Colon Cancer Mother Hypertension Mother Diabetes Mother Lipids Mother Heart Father ID age 55 Lipids Brother Diabetes Sister Diabetes Brother Heart Brother SOCIAL HISTORY: Social History Tobacco Use Smoking status: Never Smokeless tobacco: Never Vaping Use Vaping Use: Never used Substance Use Topics Alcohol use: Never Drug use: Never Prior to Admission medications as of 08/07/22 1241 Medication Sig Last Dose Taking celecoxib (CELEBREX) 200 mg capsule Take 200 mg by mouth every morning. 0700 AM Yes evolocumab (REPATHA PUSHTRONEX) 420 mg/3.5 mL Inject 420 mg subcutaneously once every month. TAKES FIRST OF THE MONTH Yes levothyroxine (SYNTHROID) 50 mcg tablet Take 50 mcg by mouth daily before breakfast. Yes No medication comments found. ALLERGIES Allergen Reactions Clindamycin Rash, Itching, Other: See Comments High Fever Betadine [Povidone-* Rash Chlorhexidine Itching Dilaudid Cough Vomiting N/V Erythromycin Base Hives Fentanyl Other: See Comments VERY HARD TO WAKE UP Gemfibrozil GI Upset, Vomiting, Other: See Comments Nausea, MUSCLE ACHES Hydromorphone Diarrhea, Vomiting, Other: See Comments Nausea Iodinated Contrast * Rash Iodine Other: See Comments BLISTERS Latex Rash Macrodantin [Nitrof* GI Upset Mobic [Meloxicam] Other: See Comments Nausea Morphine Diarrhea, Vomiting SEE'S SPIDERS Nitrofurantoin Vomiting Penicillins Hives Prednisone Other: See Comments PH SYCOTIC Onbkvdn-Hep-Ydu Red* Other: See Comments Myalgias Sulfa (Sulfonamide * Other: See Comments Unknown - occurred during childhood Zinc GI Upset Zostavax [Zoster Va* Vomiting, Other: See Comments Pt developed a rash on 06-10-07 within ten minutes of the injection. It involved the arms, chest and legs. It was intensely pruritic. HTN AND SOB Objective PHYSICAL EXAM: VITALS: BP 156/74 Pulse 72 Resp 18 Wt 169 lb 6.4 oz (76.8kg) SpO2 95% Diagnostic tests reviewed for today's visit: CBC Latest Ref Rng & Units 08/07/2022 WBC 3.70 - 11.00 k/uL 10.79 RBC 3.90 - 5.20 m/uL 5.27(H) HEMOGLOBIN 11.5 - 15.5 g/dL 15.8(H) HEMOGLOBIN, FLORENCIA 11.5 - 15.5 g/dL - HEMATOCRIT 36.0 - 46.0 % 48.5(H) MCV 80.0 - 100.0 fL 92.0 MCV, FLORENCIA 80.0 - 100.0 fL - MCH 26.0 - 34.0 pg 30.0 MCH, FLORENCIA 26.0 - 34.0 pg - MCHC 30.5 - 36.0 g/dL 32.6 MCHC, FLORENCIA 30.5 - 36.0 g/dL - RDW, FLORENCIA 11.5 - 15.0 % - RDW-CV 11.5 - 15.0 % 12.9 PLATELETS 150 - 400 k/uL 259 MPV 9.0 - 12.7 fL 12.3 MPV, FLORENCIA 9.0 - 12.7 fL - NEUT%, FLORENCIA 39.5 - 74.0 % - MONO%, FLORENCIA 0.0 - 12.0 % - EOS%, FLORENCIA 0.0 - 6.6 % - BASO% % - BASO%, FLORENCIA 0.0 - 1.2 % - ABS NEUT (ANC) 1.45 - 7.50 k/uL - ABS NEUT, FLORENCIA 1.45 - 7.50 k/uL - ABS LYMP, FLORENCIA 1.00 - 4.00 k/uL - ABS LYMPH 1.00 - 4.00 k/uL - ABS MONO <0.87 k/uL - ABS MONO, FLORENCIA 0.00 - 0.86 k/uL - ABS EOS, FLORENCIA 0.00 - 0.45 k/uL - ABS EOSIN <0.46 k/uL - ABS BASO <0.11 k/uL - ABS BASO, FLORENCIA 0.00 - 0.10 k/uL - NRBC /100 WBC - BMP Latest Ref Rng & Units 08/07/2022 05/06/2021 01/25/2012 GLUCOSE 70 - 100 mg/dL 73 115(H) 76 BUN 7 - 26 mg/dL 26 17 - CREATININE 0.51 - 0.95 mg/dL 1.01(H) 0.89 - SODIUM 136 - 145 mmol/L 140 138 - POTASSIUM 3.5 - 5.1 mmol/L 4.7 4.0 - CHLORIDE 98 - 107 mmol/L 105 101 - CO2 21 - 32 mmol/L 26 23 - ANION GAP 5 - 16 mmol/L 9 14 - CALCIUM, TOTAL 8.5 - 10.5 mg/dL 10.5 9.7 9.7 eGFR >=60 mL/min/1.73m 58(L) 68 - Latest Reference Range & Units 08/07/22 12:16 Hemoglobin A1C 4.3 - 6.0 % 5.7 Estimated Average Glucose mg/dL 117 Latest Reference Range & Units 08/07/22 12:16 PT Sec 9.7 - 13.0 sec 10.3 PT INR 0.9 - 1.3 1.0 APTT 23.0 - 32.4 sec 21.6 (L) Latest Reference Range & Units 08/07/22 12:16 MRSA PCR Negative Negative for MRSA by PCR Staph aureus PCR Negative Negative for Staphylococcus aureus by PCR. 08/07/22 12:16 ABO O Rh(D) Positive Antibody Screen Negative Historical Ab Scr Status NEGATIVE CXR 08/07/22: No acute radiographic abnormality. EKG 08/07/22: Normal sinus rhythm. Normal ECG rate 72 Assessment/Plan I met Maddison today in [place] with a friend. Work related injury with f racture non-healing. She is a young 76 yo who continues to work with heavy lifting and no CV issues. Many allergies including Fentanyl - states it is 'too much' for her. No contraindication for ISB. EKG: NSR 72 bpm. Believe this may be a SDS joint replacement. Rheumatologic diagnosis was ruled out, she had no benefit from the meds and has been off of them for months and has had no recent steroids. ANESTHESIA FINDINGS: Intubation History: No history of difficult intubation Significant Anesthesia Considerations: None Airway History: No abnormal airway history PLAN This patient is optimally prepared for surgery pending LABS. The Following Tests/Procedures Have Been Initiated: Orders Placed This Encounter XR CHEST 2V FRONTAL/LAT Standing Status: Future Standing Expiration Date: 09/02/2023 HGB A1C Standing Status: Future Number of Occurrences: 1 Standing Expiration Date: 10/07/2022 ST[facility] AUREUS PCR Standing Status: Future Number of Occurrences: 1 Standing Expiration Date: 10/07/2022 Activated PTT Standing Status: Future Number of Occurrences: 1 Standing Expiration Date: 10/07/2022 Prothrombin Time Standing Status: Future Number of Occurrences: 1 Standing Expiration Date: 10/07/2022 CBC Standing Status: Future Number of Occurrences: 1 Standing Expiration Date: 10/07/2022 Comp Metabolic Panel Standing Status: Future Number of Occurrences: 1 Standing Expiration Date: 10/07/2022 Type and Screen, 30 day Standing Status: Future Number of Occurrences: 1 Standing Expiration Date: 10/07/2022 Order Specific Question: [facility] Planned Surgery or Procedure: Answer: [facility] ECG COMPLETE Standing Status: Future Number of Occurrences: 1 Standing Expiration Date: 08/04/2023 Planned Anesthetic: General Instructions Given to Patient: Instructions located in the after visit summary. Patient given verbal and written preop instructions and voices comprehension and compliance. SIGNATURE: Syl Tapia MD PATIENT NAME: Maddison Rivera DATE: August 07, 2022 TIME: 2:03 PM Summary: DOS MEDS PATIENT MEDICATION INSTRUCTIONS Please read below carefully for your personalized instructions. Medications: If you are on blood thinner or anticoagulants including aspirin, please confirm with your surgical team on when to stop these medications. Unless instructed differently by your surgical team, stay on all of your medications until your surgery. Pre-Surgery Med Instructions Medication Instructions celecoxib (CELEBREX) 200 mg capsule Follow Surgeon's instructions evolocumab (REPATHA PUSHTRONEX) 420 mg/3.5 mL levothyroxine (SYNTHROID) 50 mcg tablet Take morning of surgery with a sip of water, no other fluids If you have any medication changes between receiving these instructions and your surgery date, please provide this updated information with the nurse who calls you the week day prior to your surgical procedure so we can update your list and provide you with updated instructions for the morning of your procedure. Jeison Perez - 08/31/22 76 yo woman, non-smoker. PMHx: Left Brest Ca/Mastectomy - delayed emergence GA, HTN, osteonecrosis of left shoulder, HLP (Repatha), thyroid disease. 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 Also see old fracture proximal humurus. Don't have Chris's notes to review. She was seen by [facility] [employer] Ata 05/10. documented in this encounter [facility] 08-07-2022 Instructions Syl Tapia MD - 08/07/2022 1:17 PM EDT PATIENT MEDICATION INSTRUCTIONS Please read below carefully for your personalized instructions. Medications: If you are on blood thinner or anticoagulants including aspirin, please confirm with your surgical team on when to stop these medications. Unless instructed differently by your surgical team, stay on all of your medications until your surgery. Pre-Surgery Med Instructions Medication Instructions celecoxib (CELEBREX) 200 mg capsule Follow Surgeon's instructions evolocumab (REPATHA PUSHTRONEX) 420 mg/3.5 mL levothyroxine (SYNTHROID) 50 mcg tablet Take morning of surgery with a sip of water, no other fluids If you have any medication changes between receiving these instructions and your surgery date, please provide this updated information with the nurse who calls you the week day prior to your surgical procedure so we can update your list and provide you with updated instructions for the morning of your procedure. documented in this encounter [facility] 07-01-2021 Miscellaneous Notes Patient notified and verbalized understanding. Patient states she has not been called about an appt with Pain Management. Number given for Doctor Referral line, . Dalton Villa LPN ----- Message from Irasema Vela MD sent at 06/28/2021 12:39 PM EDT ----- Osteopenia on bmd - continue ca - vit d documented in this encounter [facility] 05-31-2021 Note HNO ID: [id number] Author: Irasema Vela MD Service: ? Author Type: Physician Type: Progress Notes Filed: 05/31/2021 1:00 PM Note Text: VIRTUAL VISIT PROGRESS NOTE This is a virtual visit using [facility] [facility] video visit. It required patient-provider interaction for the medical decision making as documented below. Maddison Rivera is a 75 year old female seen for OA. Not on pred H/o UCTD, on MTX, Plaquenil. Side effects to both. Fracture hip. Neg MASOOD, RF. Simponi was discussed. She was seeing Dr. Eric. She was diagnosed with RA 2020 - everything hurts chronic x 30 years. She was diagnosed with 1999 Dr. Benavidez with lupus (rash on face) and was on Plaquenil. She takes prednisone 10 mg as needed (1-2 /week). H/o steroid induced psychosis with higher doses. Gelling phenomenon, cannot close fingers, neck pain, hip pain, feet. She takes Excedrin prn, naproxen prn. ? Never been to pain management clinic. ? Dec fell and had fracture elbow, shoulder. left?breast cancer diagnosed 04/2013.?She underwent left breast mastectomy with immediate TRAM flap reconstruction with Dr. Mercado and Dr. Link at that time. 2/2 lymph nodes negative for carcinoma. Marisol Achilles tendon replacement ? Family history of autoimmune disease: grandmother may have had RA? Smoking status: Tobacco Use: Never ? ? HISTORY REVIEWED (electronic chart updated): PAST MEDICAL HISTORY Diagnosis Date - Closed fracture of shaft of fibula with tibia 05/17/2010 - HYPERTENSION NOS 02/22/2007 only had elevated BP a couple times when saw Dr. Mijares - PURE HYPERCHOLESTEROLEM 08/06/2006 - Senile osteoporosis 08/06/2006 - Vitamin D deficiency PAST SURGICAL HISTORY Procedure Laterality Date - BREAST LUMPECTOMY HX Left 06/27/2019 - CATARACT SURGERY, COMPLEX 2005 bilateral - LAPAROSCOPY SURG CHOLECYSTECTOMY Cholecystectomy, lap - MASTECTOMY HX Bilateral - OPTX ANKLE DISLOCATION W/REPAIR/INT/XTRNL FIXJ 2010 ORIF Ankle - PAST SURGICAL HISTORY OF age 40 hysterectomy - PAST SURGICAL HISTORY OF achilles tendon replacements - PAST SURGICAL HISTORY OF Left 07/28/2019 revision of Lt breast reconstruction and prophylactic Rt mastectomy - STEREOTACTIC CORE BIOPSY 11/14/06 RIGHT FAMILY HISTORY Problem Relation Age of Onset - Colon Cancer Mother - Hypertension Mother - Diabetes Mother - Lipids Mother - Heart Father ID age 55 - Lipids Brother - Diabetes Sister - Diabetes Brother - Heart Brother Social History Tobacco Use - Smoking status: Never Smoker - Smokeless tobacco: Never Used Substance Use Topics - Alcohol use: No - Drug use: Not on file Current Outpatient Medications Medication Sig - lisinopril (ZESTRIL, PRINIVIL) 10 mg tablet Take 10 mg by mouth once daily. - predniSONE (DELTASONE) 10 mg tablet Take 10 mg by mouth once daily as needed. - evolocumab (REPATHA PUSHTRONEX) 420 mg/3.5 mL Inject subcutaneously once every month. - vitamin D3-folic acid 5,000 unit- 1 mg tab Take by mouth. (Patient not taking: Reported on 05/06/2021 ) - doxycycline hyclate (VIBRAMYCIN) 100 mg capsule (Patient not taking: Reported on 05/06/2021 ) - levothyroxine (SYNTHROID) 50 mcg tablet Take 50 mcg by mouth once daily. - Cholecalciferol, Vitamin D3, 2,000 unit cap Take 6,000 Units by mouth once daily. (Patient not taking: Reported on 07/29/2018 ) - coenzyme Q10 (CO Q-10) 100 mg cap Take 1 capsule by mouth once daily. (Patient not taking: Reported on 07/29/2018 ) - rosuvastatin (CRESTOR) 20 mg tablet Take 0.5 tablets by mouth once daily. (Patient not taking: Reported on 05/06/2021 ) - atorvastatin 20 mg tablet Take 1 tablet by mouth once daily. (Patient not taking: Reported on 07/29/2018 ) - Mico-3 Fatty Acids (FISH OIL) 500 mg Cap Take by mouth once daily. Takes 600 mg pill daily (Patient not taking: Reported on 07/29/2018 ) - triamcinolone acetonide 0.1 % TOPICAL cream Apply 1 application to affected area three times daily as needed. (Patient not taking: Reported on 07/29/2018 ) - lisinopril 5 mg ORAL tablet Take 1 tablet by mouth once daily. (Patient not taking: Reported on 07/29/2018 ) - Aspirin 81 mg ORAL Tab Take one(1) tablet daily. (Patient not taking: ) No current facility-administered medications for this visit. ALLERGIES Allergen Reactions - Clindamycin Rash, Itching, Other: See Comments High Fever - Betadine [Povidone-* Rash - Chlorhexidine Itching - Erythromycin Base Hives - Fentanyl Unknown - Gemfibrozil GI Upset, Vomiting, Other: See Comments Nausea - Hydromorphone Diarrhea, Vomiting, Other: See Comments Nausea - Iodinated Contrast * Rash - Latex Rash - Macrodantin [Nitrof* GI Upset - Mobic [Meloxicam] Other: See Comments Nausea - Morphine Diarrhea, Vomiting - Nitrofurantoin Vomiting - Penicillins Hives - Prednisone Unknown - [id number] Red* Other: See Comments Myalgias - Sulfa (Sulfonamide * Other: See Comme (more content not included)... [facility] 05-31-2021 Instructions Irasema Vela MD - 05/31/2021 12:37 PM EDT documented in this encounter [facility] 05-31-2021 History of Present illness Narrative VIRTUAL VISIT PROGRESS NOTE This is a virtual visit using [facility] [facility] video visit. It required patient-provider interaction for the medical decision making as documented below. Maddison Rivera is a 75 year old female seen for OA. Not on pred H/o UCTD, on MTX, Plaquenil. Side effects to both. Fracture hip. Neg MASOOD, RF. Simponi was discussed. She was seeing Dr. Eric. She was diagnosed with RA 2020 - everything hurts chronic x 30 years. She was diagnosed with [address] Dr[address] Benavidez with lupus (rash on face) and was on Plaquenil. She takes prednisone 10 mg as needed (1-2 /week). H/o steroid induced psychosis with higher doses. Gelling phenomenon, cannot close fingers, neck pain, hip pain, feet. She takes Excedrin prn, naproxen prn. Never been to pain management clinic. Dec fell and had fracture elbow, shoulder. left breast cancer diagnosed 04/2013. She underwent left breast mastectomy with immediate TRAM flap reconstruction with Dr. Mercado and Dr. Link at that time. 2/ lymph nodes negative for carcinoma. Marisol Achilles tendon replacement Family history of autoimmune disease: grandmother may have had RA? Smoking status: Tobacco Use: Never HISTORY REVIEWED (electronic chart updated): PAST MEDICAL HISTORY Diagnosis Date Closed fracture of shaft of fibula with tibia 05/17/2010 HYPERTENSION NOS 02/22/2007 only had elevated BP a couple times when saw Dr. Mijares PURE HYPERCHOLESTEROLEM 08/06/2006 Senile osteoporosis 08/06/2006 Vitamin D deficiency PAST SURGICAL HISTORY Procedure Laterality Date BREAST LUMPECTOMY HX Left 06/27/2019 CATARACT SURGERY, COMPLEX 2005 bilateral LAPAROSCOPY SURG CHOLECYSTECTOMY Cholecystectomy, lap MASTECTOMY HX Bilateral OPTX ANKLE DISLOCATION W/REPAIR/INT/XTRNL FIXJ 2010 ORIF Ankle PAST SURGICAL HISTORY OF age 40 hysterectomy PAST SURGICAL HISTORY OF achilles tendon replacements PAST SURGICAL HISTORY OF Left 07/28/2019 revision of Lt breast reconstruction and prophylactic Rt mastectomy STEREOTACTIC CORE BIOPSY 11/14/06 RIGHT FAMILY HISTORY Problem Relation Age of Onset Colon Cancer Mother Hypertension Mother Diabetes Mother Lipids Mother Heart Father ID age 55 Lipids Brother Diabetes Sister Diabetes Brother Heart Brother Social History Tobacco Use Smoking status: Never Smoker Smokeless tobacco: Never Used Substance Use Topics Alcohol use: No Drug use: Not on file Current Outpatient Medications Medication Sig lisinopril (ZESTRIL, PRINIVIL) 10 mg tablet Take 10 mg by mouth once daily. predniSONE (DELTASONE) 10 mg tablet Take 10 mg by mouth once daily as needed. evolocumab (REPATHA PUSHTRONEX) 420 mg/3.5 mL Inject subcutaneously once every month. vitamin D3-folic acid 5,000 unit- 1 mg tab Take by mouth. (Patient not taking: Reported on 05/06/2021 ) doxycycline hyclate (VIBRAMYCIN) 100 mg capsule (Patient not taking: Reported on 05/06/2021 ) levothyroxine (SYNTHROID) 50 mcg tablet Take 50 mcg by mouth once daily. Cholecalciferol, Vitamin D3, 2,000 unit cap Take 6,000 Units by mouth once daily. (Patient not taking: Reported on 07/29/2018 ) coenzyme Q10 (CO Q-10) 100 mg cap Take 1 capsule by mouth once daily. (Patient not taking: Reported on 07/29/2018 ) rosuvastatin (CRESTOR) 20 mg tablet Take 0.5 tablets by mouth once daily. (Patient not taking: Reported on 05/06/2021 ) atorvastatin 20 mg tablet Take 1 tablet by mouth once daily. (Patient not taking: Reported on 07/29/2018 ) Mico-3 Fatty Acids (FISH OIL) 500 mg Cap Take by mouth once daily. Takes 600 mg pill daily (Patient not taking: Reported on 07/29/2018 ) triamcinolone acetonide 0.1 % TOPICAL cream Apply 1 application to affected area three times daily as needed. (Patient not taking: Reported on 07/29/2018 ) lisinopril 5 mg ORAL tablet Take 1 tablet by mouth once daily. (Patient not taking: Reported on 07/29/2018 ) Aspirin 81 mg ORAL Tab Take one(1) tablet daily. (Patient not taking: ) No current facility-administered medications for this visit. ALLERGIES Allergen Reactions Clindamycin Rash, Itching, Other: See Comments High Fever Betadine [Povidone-* Rash Chlorhexidine Itching Erythromycin Base Hives Fentanyl Unknown Gemfibrozil GI Upset, Vomiting, Other: See Comments Nausea Hydromorphone Diarrhea, Vomiting, Other: See Comments Nausea Iodinated Contrast * Rash Latex Rash Macrodantin [Nitrof* GI Upset Mobic [Meloxicam] Other: See Comments Nausea Morphine Diarrhea, Vomiting Nitrofurantoin Vomiting Penicillins Hives Prednisone Unknown Hbamtzs-Yee-Mjw Red* Other: See Comments Myalgias Sulfa (Sulfonamide * Other: See Comments Unknown - occurred during childhood Zinc GI Upset Zostavax [Zoster Va* Vomiting, Other: See Comments Pt developed a rash on 06-10-07 within ten minutes of the injection. It involved the arms, chest and legs. It was intensely pruritic. REVIEW OF SYSTEMS: All other ROS: negative As noted in HPI PHYSICAL EXAMINATION: VIDEO EXAM: (if completed, performed via video enabled technology) No exam performed Results for MADDISON RIVERA ( ) as of 05/31/2021 12:25 Ref. Range 05/06/2021 10:56 Hep C Antibody IA Latest Ref Range: Negative Negative Hep B Surf Ab Quant Latest Ref Range: <10.00 mIU/mL 3.47 Hep B Surface Ag Latest Ref Range: Negative Negative Hep B Core Ab, Total Latest Ref Range: Negative Negative MASOOD Latest Ref Range: Negative Negative DNA Antibody Latest Ref Range: <30 IU/mL <12 Anti-Sm Latest Ref Range: <1.0 AI <0.2 Sm Antibody Latest Ref Range: Negative Negative Rheumatoid Factor Latest Ref Range: <16 IU/mL <10 CCP Antibody, IgG Latest Ref Range: <20 Units <15 CCP Antibody IgG Qualitative Latest Ref Range: Negative Negative Vitamin D 25 Hydroxy Latest Ref Range: 30.0 - 100.0 ng/mL 30.5 IMPRESSION: MODERATE SCRATCH THAT MILD TO MODERATE DEGENERATIVE DISC DISEASE FROM C3-C7. DIFFUSE FACET DEGENERATIVE CHANGES. IMPRESSION: Bilateral feet: Heel spurs. Mineralization and prominence of the distal Achilles tendons bilaterally, correlate for possible tendinosis and/or partial tearing Bilateral hands: Degenerative changes IMPRESSION: MILD DEGENERATIVE CHANGES OF THE RIGHT HIP MILD TO MODERATE DEGENERATIVE CHANGES OF LEFT HIP.. NORMAL SACROILIAC JOINTS IMPRESSION: MODERATELY ADVANCED DEGENERATIVE DISC DISEASE. 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 IMPRESSION: CHONDROCALCINOSIS. DEXA 2021 - FINDINGS: Lumbar Spine (L1-L4): g/cm2 (0.880) / T-score (-1.5) / Z-score (0.9) Findings are suggestive of osteopenia with a low fracture risk. Left Femur Total: g/cm2 (0.792) / T-score (-1.2) / Z-score (0.6) Left Femoral Neck: g/cm2 (0.795) / T-score (-0.5) / Z-score (1.6) Right Femur Total: g/cm2 (0.791) / T-score (-1.2) / Z-score (0.6) Right Femoral Neck: g/cm2 (0.741) / T-score (-1.0) / Z-score (1.1) The T-Scores on the most recent prior examination were: Lumbar Spine (L1-L4): There has been worsening of bone density since the previous examination. Left Femur Total: which represents a worsening of 4.6%. Right Femur Total: which represents a worsening of 7.3%. _ BD/Dexa Bone Density Study IMPRESSION: The patient is considered osteopenic as outlined below according to World Addi Organization (WHO) criteria with a low fracture risk. There has been worsening of bone density since the previous examination. _ ASSESSMENT: (M81.0) Osteoporosis, unspecified osteoporosis type, unspecified pathological fracture presence (primary encounter diagnosis) (M15.9) Primary osteoarthritis involving multiple joints PLAN: 75-year-old female is here for follow up. She was previously diagnosed with rheumatoid arthritis, lupus and has been on methotrexate and hydroxychloroquine in the past. Patient did not have any relief with these medications and also due to side effects these were discontinued. At present she is not on immune suppression. No synovitis on exam. She also reports neck and lower back pain which is concerning more for osteoarthritis. Advised her to notify us if she has swelling in the joints. Work up neg for autoimmune disease. Pain management referral. currently symptoms are under control with naproxen. osteopenia Advised ca-vit d It was necessary to convert the virtual visit to a telephone encounter due to technical difficulties. Irasema Vela MD [facility] on 05/31/21 CONSULT TO PAIN MGT No orders of the defined types were placed in this encounter. Platform used - 20 min on telephone documented in this encounter [facility] 05-13-2021 Miscellaneous Notes Patient called to make sure her BMD results were faxed to the office. Patient would like to know if she can have the results over the phone. Dalton Villa LPN documented in this encounter [facility] 05-06-2021 Note HNO ID: [id number] Author: RT Dinorah(R) Service: Radiology Author Type: Technologist Type: Progress Notes Filed: 05/06/2021 10:45 AM Note Text: Radiology Service Progress Note PATIENT NAME: Maddison Rivera DATE OF SERVICE: May 06, 2021 TIME: 10:44 AM PATIENT IDENTITY VERIFICATION COMPLETED USING TWO (2) IDENTIFIERS: Name and Date of confirmed by patient verbally and Name and Date of confirmed by identification band. FALL SCREENING: Has the patient had 2 falls in the last year or 1 fall with injury or currently using an Ambulatory Assistive Device (Walker, Cane, Wheelchair, Crutches, etc.)? No PATIENT GENDER DATA: Female. status: : No status: NO. PATIENT RELEVANT IMPLANT DATA REVIEWED: Not Applicable RADIOLOGY DEPARTMENT: General X-ray: Exam(s) Completed: Spine X-Ray(s): Cervical AP / LAT Pelvis X-Ray: Pelvis with Hip Bilateral Lower Extremity X-Ray(s): Knee, AP Only Bilateral and Foot, Bilateral Upper Extremity X-Ray(s): Hand, bilateral PERIPHERAL IV DATA: Not applicable SIGNED BY: RT Dinorah(R) May 06, 2021 10:44 AM [facility] 05-06-2021 Note HNO ID: [id number] Author: Irasema Vela MD Service: ? Author Type: Physician Type: Progress Notes Filed: 05/07/2021 9:59 AM Note Text: RHEUMATOLOGY NEW PATIENT NOTE REFERRING PHYSICIAN: Self CHIEF COMPLAINT: Patient presents with: New Patient: Review conditions HPI: Maddison Rivera is a 75 year old female who presents with joint pain H/o UCTD, on MTX, Plaquenil. Side effects to both. Fracture hip. Neg MASOOD, RF. Simponi was discussed. She was seeing Dr. Eric. She was diagnosed with RA 2020 - everything hurts chronic x 30 years. She was diagnosed with [address] Dr. Benavidez with lupus (rash on face) and was on Plaquenil. She takes prednisone 10 mg as needed (1-2 /week). H/o steroid induced psychosis with higher doses. Gelling phenomenon, cannot close fingers, neck pain, hip pain, feet. She takes Excedrin prn, naproxen prn. Never been to pain management clinic. Dec fell and had fracture elbow, shoulder. left breast cancer diagnosed 04/2013. She underwent left breast mastectomy with immediate TRAM flap reconstruction with Dr. Mercado and Dr. Link at that time. 03/23 lymph nodes negative for carcinoma. Marisol Achilles tendon replacement Family history of autoimmune disease: grandmother may have had RA? Smoking status: Tobacco Use: Never Rheumatology REVIEW OF SYSTEMS: Constitutional: Recent Weight Change: No Fatigue: No Fever: No Night sweats: No Heent: Alopecia: No H/o Inflammatory eye disease (iritis/scleritis): No Hearing loss: No Frequent sinusitis: No Oral ulcers: No Sicca: YES dry eyes Parotid swelling: No Hoarseness: No Dysphagia: No Heme/lymph: Lymphadenopathy: No Hematological abnormalities (anemia, thrombocytopenia, leukopenia): No Abnormal bleeding: No Skin: Malar or discoid lesions: No Photosensitivity: YES Other rashes: No Raynaud's phenomenon: YES Hives: No Tightness: No Nodules/bumps: No Easy Bruising: No Nail changes: No H/o psoriasis: No Gastroenterology: Nausea: {YES Vomiting: No Change in bowel movements: No Heartburn: No Respiratory: Dry cough/SOB: No Cardiovascular: Pain in chest: No Musculoskeletal: Per HPI Joint pain or swelling: No Prolonged morning stiffness: No Back pain or neck pain: No Muscle weakness: No Genitourinary: Vaginal dryness: No Rash/ulcers: No Neurological: Headaches: YES occasional Sensitivity or pain of hands and/or feet: YES tingling Psychiatry: Anxiety: YES Depression: No Poor sleep: YES lately well H/o loss: No H/o thrombosis: No Increased susceptibility to infection: No PAST MEDICAL HISTORY Diagnosis Date - Closed fracture of shaft of fibula with tibia 05/17/2010 - HYPERTENSION NOS 02/22/2007 only had elevated BP a couple times when saw Dr. Mijares - PURE HYPERCHOLESTEROLEM 08/06/2006 - Senile osteoporosis 08/06/2006 - Vitamin D deficiency PAST SURGICAL HISTORY Procedure Laterality Date - BREAST LUMPECTOMY HX Left 06/27/2019 - CATARACT SURGERY, COMPLEX 2005 bilateral - LAPAROSCOPY SURG CHOLECYSTECTOMY Cholecystectomy, lap - MASTECTOMY HX Bilateral - OPTX ANKLE DISLOCATION W/REPAIR/INT/XTRNL FIXJ 2010 ORIF Ankle - PAST SURGICAL HISTORY OF age 40 hysterectomy - PAST SURGICAL HISTORY OF achilles tendon replacements - PAST SURGICAL HISTORY OF Left 07/28/2019 revision of Lt breast reconstruction and prophylactic Rt mastectomy - STEREOTACTIC CORE BIOPSY 11/14/06 RIGHT Current Outpatient Medications Medication Sig - lisinopril (ZESTRIL, PRINIVIL) 10 mg tablet Take 10 mg by mouth once daily. - predniSONE (DELTASONE) 10 mg tablet Take 10 mg by mouth once daily as needed. - evolocumab (REPATHA PUSHTRONEX) 420 mg/3.5 mL Inject subcutaneously once every month. - levothyroxine (SYNTHROID) 50 mcg tablet Take 50 mcg by mouth once daily. - vitamin D3-folic acid 5,000 unit- 1 mg tab Take by mouth. (Patient not taking: Reported on 05/06/2021 ) - doxycycline hyclate (VIBRAMYCIN) 100 mg capsule (Patient not taking: Reported on 05/06/2021 ) - Cholecalciferol, Vitamin D3, 2,000 unit cap Take 6,000 Units by mouth once daily. (Patient not taking: Reported on 07/29/2018 ) - coenzyme Q10 (CO Q-10) 100 mg cap Take 1 capsule by mouth once daily. (Patient not taking: Reported on 07/29/2018 ) - rosuvastatin (CRESTOR) 20 mg tablet Take 0.5 tablets by mouth once daily. (Patient not taking: Reported on 05/06/2021 ) - atorvastatin 20 mg tablet Take 1 tablet by mouth once daily. (Patient not taking: Reported on 07/29/2018 ) - Mico-3 Fatty Acids (FISH OIL) 500 mg Cap Take by mouth once daily. Takes 600 mg pill daily (Patient not taking: Reported on 07/29/2018 ) - triamcinolone acetonide 0.1 % TOPICAL cream Apply 1 application to affected area three times daily as needed. (Patient not taking: Reported on 07/29/2018 ) - lisinopril 5 mg ORAL tablet Take 1 tablet by mouth once daily. (Patient not taking: Reported on (more content not included)... [facility] 05-17-2010 History of Past i llness Narrative Problem Noted Date Resolved Date Pain in limb 05/17/2010 11/08/2011 documented as of this encounter (statuses as of 05/13/2021) [facility]2011 History of Past illness Narrative* Problem Noted Date Resolved Date Pain in limb 05/17/2010 11/08/2011 documented as of this encounter (statuses as of 05/31/2021) [facility] History of Past illness Narrative* Problem Noted Date Resolved Date Pain in limb 05/17/2010 11/08/2011 documented as of this encounter (statuses as of 07/01/2021) [facility]2011 History of Past illness Narrative* Problem Noted Date Resolved Date Pain in limb 05/17/2010 11/08/2011 documented as of this encounter (statuses as of 07/26/2022) [address]29-2011 History of Past illness Narrative* Problem Noted Date Resolved Date Pain in limb 05/17/2010 11/08/2011 documented as of this encounter (statuses as of 08/08/2022) [address]29-2011 History of Past illness Narrative* Problem Noted Date Resolved Date Pain in limb 05/17/2010 11/08/2011 documented as of this encounter (statuses as of 08/08/2022) [address]29-2011 History of Past illness Narrative* Problem Noted Date Resolved Date Pain in limb 05/17/2010 11/08/2011 documented as of this encounter (statuses as of 08/18/2022) [address]29-2011 History of Past illness Narrative* Problem Noted Date Resolved Date Pain in limb 05/17/2010 11/08/2011 documented as of this encounter (statuses as of 08/25/2022) [address]29-2011 History of Past illness Narrative* Problem Noted Date Diagnosed Date Resolved Date Pain in limb 05/17/2010 11/08/2011 documented as of this encounter (statuses as of 11/25/2022) [place] [address]-29-2011 History of Past illness Narrative* Problem Noted Date Diagnosed Date Resolved Date Pain in limb 05/17/2010 11/08/2011 documented as of this encounter (statuses as of 11/29/2022) [place] [address]29-2011 History of Past illness Narrative* Problem Noted Date Diagnosed Date Resolved Date Pain in limb 05/17/2010 11/08/2011 documented as of this encounter (statuses as of 12/23/2022) [facility] Diagnosis Onset Date Resolution Status Essential hypertension acute Diastolic dysfunction chroni c Hyperlipidemia chronic [facility] Work Phone: evaluation note* Diagnosis Osteoporosis, unspecified osteoporosis type, unspecified pathological fracture presence- Primary Primary osteoarthritis involving multiple joints documented in this encounter [facility] note* Diagnosis Onset Date Resolution Status Essential hypertension acute Hyperlipidemia chronic [facility] Work Phone: evaluation noteNo assessment information available [facility] Work Phone: evaluation note* Diagnosis Acquired absence of breast and absent nipple, unspecified laterality- Primary 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, left shoulder (HCC) documented [facility]* Diagnosis Hypertension, unspecified type 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, left shoulder (HCC) [facility] Diagnosis Preop cardiovascular exam- Primary Pre-operative cardiovascular examination Preop testing Preoperative examination, unspecified Hypertension, unspecified type 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, left shoulder (HCC) documented [facility]* Diagnosis Pigmented skin lesion of uncertain behavior of lower extremity- Primary [facility]* Diagnosis Screening for colon cancer- Primary Special screening for malignant neoplasms, colon [facility] Diagnosis Onset Date Resolution Status Osteoarthritis of right knee acute Right knee pain acute [facility] Work Phone: evaluation note* Diagnosis Vitamin deficiency- Primary Unspecified vitamin deficiency VITAMIN D DEFICIENCY NOS Unspecified vitamin D deficiency PURE HYPERCHOLESTEROLEM Pure hypercholesterolemia HYPERTENSION NOS Unspecified essential hypertension Breast screening, unspecified Myalgia Mylagia and myositis, unspecified Mass of left chest wall- Primary History of left breast cancer Status post mastectomy, bilateral [facility]* Diagnosis Vitamin deficiency- Primary Unspecified vitamin deficiency VITAMIN D DEFICIENCY NOS Unspecified vitamin D deficiency PURE HYPERCHOLESTEROLEM Pure hypercholesterolemia HYPERTENSION NOS Unspecified essential hypertension Breast screening, unspecified Myalgia Mylagia and myositis, unspecified History of left breast cancer [facility] Diagnosis Vitamin deficiency- Primary Unspecified vitamin deficiency VITAMIN D DEFICIENCY NOS Unspecified vitamin D deficiency PURE HYPERCHOLESTEROLEM Pure hypercholesterolemia HYPERTENSION NOS Unspecified essential hypertension Breast screening, unspecified Myalgia Mylagia and myositis, unspecified Lung nodules- Primary Other nonspecific abnormal finding of lung field Abnormal chest CT Nonspecific (abnormal) findings on radiological and other examination of other intrathoracic organs [facility] Diagnosis Vitamin deficiency- Primary Unspecified vitamin deficiency VITAMIN D DEFICIENCY NOS Unspecified vitamin D deficiency PURE HYPERCHOLESTEROLEM Pure hypercholesterolemia HYPERTENSION NOS Unspecified essential hypertension Breast screening, unspecified Myalgia Mylagia and myositis, unspecified Lung nodules Other nonspecific abnormal finding of lung field [facility]* Diagnosis Onset Date Resolution Status Admit Date Essential hypertension acute Se pt2024 8:26am Hyperlipidemia chronic November 14, 2024 8:26am [facility] Work Phone: Progress note Author Leah Pearce [facility] Note Date/Time November 14, 2024 9:26am [facility] [address] [place] [address] OFFICE VISIT Date of Service: 11/14/24 MR#: [id number] Acct: [id number] Name: MADDISON RIVERA Rep #: [id number] : 1945 Provider: NAVJOT Pearce Age/Sex: 78/F Location: [facility] Status: Signed HPI HPI History of Present Illness Details: This is a 78-year-old lady who presents to the office today for a cardiovascularvisit. She was last seen in our office in November of 2021. She presents today due to labile blood pressures. Her PCP started her on Losartan 25mg daily. She has a history of previous breast carcinoma and hyperlipidemia who was referred here for an abnormal EKG. From a cardiac standpoint, the patient is doing well. She denies any palpitations, chest pain, pressure or heaviness. She denies SOB, Orthopnea, and PND. She does not have bleeding issues; no blood in urine, stool, or nosebleeds.She denies any decrease in energy level, myalgias, or claudication. She does nothave edema, or sudden weight gain. She does acknowledge occasional lightheadedness with elevated or low blood pressures. She denies dizziness, syncopal or near syncopal episodes, and headaches. 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 Required: No Is patient in pain?: No Allergies clindamycin Allergy (Intermediate, Verified 11/14/24 08:56) HIVES, BLISTERS, ITCHING adhesive tape Allergy (Verified 11/14/24 08:56) Rash chlorhexidine Allergy (Verified 11/14/24 08:56) Itching erythromycin base Allergy (Verified 11/14/24 08:56) Hives gemfibrozil Allergy (Verified 11/14/24 08:56) Other hydromorphone (From Dilaudid) Allergy (Verified 11/14/24 08:56) Nausea/Vom/Diarrhea Iodinated Contrast Media Allergy (Verified 11/14/24 08:56) Rash meloxicam (From Mobic) Allergy (Verified 11/14/24 08:56) Nausea morphine Allergy (Verified 11/14/24 08:56) Nausea/Vom/Diarrhea nitrofurantoin (From Macrodantin) Allergy (Verified 11/14/24 08:56) Vomiting Penicillins Allergy (Verified 11/14/24 08:56) Hives Sulfa (Sulfonamide Antibiotics) Allergy (Verified 11/14/24 08:56) PT UNSURE OF REACTION vaccine adjuvant system, AS01B liposomal (From Shingrix (PF)) Allergy (Verified 11/14/24 08:56) Other varicella-zoster virus glycoprotein E, recombinant (From Shingrix (PF)) Allergy (Verified 11/14/24 08:56) Other fentanyl Adverse Reaction (Verified 11/14/24 08:56) Other latex Adverse Reaction (Verified 11/14/24 08:56) Rash prednisone Adverse Reaction (Verified 11/14/24 08:56) Other Sszoihg-ACY-PnW Reductase Inhibitor (Rdeeedm-Ryj-Nob Reductase Inhibitor) Adverse Reaction (Verified 11/14/24 08:56) myalgias zinc Adverse Reaction (Verified 11/14/24 08:56) Upset Stomach Medications ?Medication ?Instructions ?Recorded ?Confirmed ?Type celecoxib 200 mg capsule 200 mg PO DAILY 11/22/21 History evolocumab 420 mg/3.5 mL 420 mg subcut .1xmonth marisol sterol 11/22/21 11/14/24 History subcutaneous wearable injector Please send 3 month sup ply (Repatha Pushtronex) losartan 25 mg tablet 25 mg PO QHS 11/12/24 History levothyroxine 50 mcg capsule 50 mcg PO QDAY 11/14/24 0 11/14/24 History levothyroxine 50 mcg tablet 75 mcg PO DAILY 11/14/24 0 11/14/24 History (Synthroid) milnacipran 25 mg tablet (Savella) 25 mg PO ONCE 11/1411/14/24 History Ejection fraction %: 65 Have you fallen in the past year?: No PFSH Medical History Osteoarthritis of right knee Right knee pain Sprain of left acromioclavicular joint Contusion of clavicle Seroma of breast Acquired absence of bilateral breasts and nipples Acquired absence of right breast and nipple Cancer phobia Breast pain, left Left breast mass Erythema of skin Deformity of reconstructed breast Acquired absence of left breast and nipple Diastolic dysfunction Hypothyroidism Essential (primary) hypertension Open wound of lateral abdominal wall Disproportion of reconstructed breast 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 Right wrist fracture Strattice acellular dermal matrix graft Leg fracture, left Atelectasis Hypoglycemia Cataract UTI (urinary tract infection) Osteoarthritis Headache Asthma Anemia Ductal carcinoma in situ (DCIS) of left breast Dysesthesia Late effect of certain other external causes Personal history of breast cancer Actinic keratosis Neoplasm of skin of nose Neoplasm of skin of ear Vitamin D deficiency Hyperlipidemia Surgical History (Updated 11/14/24 @ 09:19 by Leah Pearce OUTBOUND SUPERVISOR, OUTBOUND SUPERVISOR-C) History of left shoulder replacement History of mastectomy Status post left breast reconstruction History of excision of lesion Status post transverse rectus abdominis muscle (TRAM) flap breast reconstruction History of hysterectomy History of left breast biopsy History of Achilles tendon repair History of cholecystectomy Family History Mother Colon cancer Hypertension Diabetes Kidney disease Heart disease Father Heart disease Hyperlipidemia Kidney disease Myocardial infarction 62 Brother Myocardial infarction 68 Sister Myocardial infarction 40's Sister Myocardial infarction 40's Sister Myocardial infarction 40's Social History household members: none Smoking Status: Never smoker substance use type: does not use ROS Const Const: Negative for fatigue, weakness, headache(s) or frequent falls Eyes Eyes: Negative for blurry vision ENT ENT: Negative for headache(s), dizziness or Nosebleed/epistaxis Cardio Chest Pain: No Palpitations: No Edema: None Muscle aches with walking: None Resp Respiratory: Negative for SOB with activity, SOB at rest or SOB orthopnea\SOB lying down GI GI: Negative nausea, vomiting, heartburn, bright, red blood in stools or black,tarry stools : Negative for hematuria Neuro Neuro: Positive for lightheadedness; Negative for dizziness, near syncope, syncope, frequent falls, headache(s), weakness or blurry vision Endo Endo: Negative for fatigue Cardiology Exam Const Appearance: cooperative and no acute distress Nutritional Appearance: average body habitus Orientation: alert and oriented x3 Head Head: normal to inspection Ears: hearing grossly normal bilaterally Nose: external nose normal Face and Sinus: face symmetric Eyes General: appearance normal, both eyes and all related structures Eyelids: eyelids normal Conjunctivae: conjunctivae normal Pupils: PERRL and pupil size EOM: EOM intact bilaterally Neck Neck: normal visual inspection Carotids: Negative bruit Chest Chest inspection: normal inspection of the chest and normal respiratory effort Auscultation: Bilateral: Clear to Auscultation Cardio Palpation: normal PMI Rate: regular rate Rhythm: regular rhythm Heart sounds: S1 normal and S2 normal; Negative rub, gallop or murmur GI GI: normal to inspection and soft; Negative no hepatosplenomegaly Neuro General: patient alert, patient oriented x3 and CN's II-XI intact bilaterally Skin Skin: no rashes or lesions noted Extremities Pulses: Normal: Right Posterior Tibial Pulse, Left Posterior Tibial Pulse, RightRadial Pulse and Left Radial Pulse Lower Extremity Edema: None: Bilateral Psych Psychological: normal affect Supplemental Info Supplemental Information Echocardiogram from 08/29/2018: Normal LV size. Left ventricular systolic function is normal. The estimated ejection fraction is 65 %. Stage 2 diastolic dysfunction. Pulmonary artery systolic pressure is 30 mmHg. Contrast injection was performed. The global longitudinal strain is normal. The global longitudinal strain = -22.2 % (normal). Labs: LDL Cholesterol, (0-130) 130 mg/dL HDL Cholesterol, (40-) 48 mg/dL Cholesterol, (<=200) 215 mg/dL H Triglycerides, (-199) 169 mg/dL Diagnostics: Electrocardiogram Echocardiogram Chest X-Ray Abdomen Ultrasound Abdomen/Pelvis CT Venous Doppler Study Past Visits: Cardiology Visit Today Assessment and Plan Assessment and Plan (1) Essential hypertension: Status: Acute Plan: Patient has a history of hypertension. Her blood pressure is well-controlled atthis time?126/79. She does acknowledge labile blood pressures at home. She wasrecently started on losartan 25 mg daily. Would like to obtain an echocardiogram, depending on results, further recommendations will be made. At this time, she will continue with this, along with monitoring her blood pressures at home. She will notify our office of blood pressure readings in 1 to 2 weeks. Depending on readings, further recommendations will be made. (2) Hyperlipidemia: Status: Chronic Plan: Patient has a history of hyperlipidemia. Her most recent lipid panel from 10/06/2024: Cholesterol 215, HDL 48, LDL 133, triglycerides 169. She is intolerant of statin medications. She will continue Repatha 420 mg every month. She will continue with aggressive risk factor and lifestyle modifications. Orders: Orders Echo Complete Today I10 - Essential (primary) hypertension, I51.89 - Other ill-defined heart diseases Patient Instructions: Please monitor your blood pressures at home, and notify our office of blood pressure readings in 1-2 weeks. [phone] Option #4. Plan Details Additional Comments: Patient will follow-up in 4-6 weeks, or sooner if needed. Thank you for allowing me to participate in the care of your patient. Please donot hesitate to call if any issues arise. This note was generated using a voice recognition system and there may be incorrect words, spelling, or punctuation that were not noted when reviewing theoffice note prior to saving. Portions of this documentation were copied and pasted from previous office visitnotes to provide cohesive continuity of the history. The note has been reviewed,edited, and updated, as necessary. Follow Up: 4-6 weeks (OUTBOUND SUPERVISOR/PA) Coding Level of Care Code Off vis,est,level 4 Diagnoses Essential hypertension I10 Hyperlipidemia E78.5 Coding Level of Care Code Off vis,est,level 4 Diagnoses Essential hypertension I10 Hyperlipidemia E78.5 Clinical Quality Measures Falls Risk Screening/Assistive Devices Have you fallen in the past year?: No Cardiac Ejection fraction %: 65 11/14/24 1637 <Electronically signed by Leah RITCHIEC> Date _ Leah RITCHIEC Cosigner Signature: Date (if applicable) CC: ~ [employer] Work Phone: Reason for referral (narrative)* Outpatient Procedure (Routine) - Closed Specialty Diagnoses / Procedures Referred By Contac t Ref[facility] Diagnoses Preop testing Procedures ECG COMPLETE ECG ROUTINE ECG W/LEAST 12 LDS W/I&R Nayeli Perez MD [address] [place] [address] [address] [place] [facility] [place] [address] Referral ID Status Reason Start Date Expiration Date V isits Requested Visits Authorized [id number] Closed Auto-Generate d Referral 08/07/2022 02/18/2023 1 1 [facility] for referral (narrative)* Outpatient Procedure (Routine) - Closed Specialty Diagnoses / Procedures Referred By Contac t Referred To Contact [facility] Diagnoses Screening for colon cancer Procedures COLONOSCOPY SCREENING COLONOSCOPY FLX DX W/COLLJ SPEC WHEN Kamila Sanchez MD [address] [place] [address] [facility] Disease [address] [address] Referral ID Status Reason Start Date Expiration Date V isits Requested Visits Authorized [id number] Closed Auto-Generate d Referral 11/20/2022 11/21/2023 1 1 [facility] for referral (narrative)No reason for [facility] Narrative* Outpatient Procedure (Routine) - Closed Specialty Diagnoses / Procedures Referred By Contac t Referred [facility] Diagnoses Preop testing Procedures ECG COMPLETE ECG ROUTINE ECG W/LEAST 12 LDS W/I&R Nayeli Perez MD [address] [place] [address] [facility] [place] [address] [place] [id number] Referral ID Status Reason Start Date Expiration Date V isits Requested Visits Authorized [id number] Closed Auto-Generate d Referral 08/07/2022 02/18/2023 1 1 [facility] for visit Narrative* Outpatient Procedure (Routine) - Closed Specialty Diagnoses / Procedures Referred By Contac t Referred To Contact [facility] Diagnoses Screening for colon cancer Procedures COLONOSCOPY SCREENING COLONOSCOPY FLX DX W/COLLJ SPEC WHEN Kamila Sanchez MD [address] [place] [address] [facility] Disease [address] [address] Referral ID Status Reason Start Date Expiration Date V isits Requested Visits Authorized [id number] Closed Auto-Generate d Referral 11/20/2022 11/21/2023 1 1 [facility] Advance Directives No Advanced Directives Records FoundDocuments on File Type Date Recorded 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 Advance Directive(s) Advance Directive Response Recorded Date/ Time Advance Directives No December 23, 2015 12:44pm Living Will Yes February 09, 021 9:55am Power of Visual Developer Yes February 09, 2021 9:55am Documents on File Type Date Recorded 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 Advance Directive(s) Advance Directive Response Recorded Date/ Time Advance Directives No December 23, 2015 11:44am Living Will Yes February 09 021 8:55am Power of Visual Developer Yes February 09, 2021 8:55am Latest Code Status on File Code Status Date Activated Date Inactivated Comments Full Code 08/31/2022 10:52 AM 08/31/2022 2:46 PM Question Answer Comments Full Code Order Discussed With: Patient Latest Code Status on File Code Status Date Activated Date Inactivated Comments Full Code 08/31/2022 10:52 AM 08/31/2022 2:46 PM Question Answer Comments Full Code Order Discussed With: Patient Date Activated Date Inactivated Comments 08/31/2022 10:52 AM 08/31/2022 2:46 PM Question Answer Comments Full Code Order Discussed With: Patient Date Activated Date Inactivated Comments 08/31/2022 10:52 AM 08/31/2022 2:46 PM Question Answer Comments Full Code Order Discussed With: Patient Advance Directive Response Recorded Date/ Time Advance Directives No December 23, 2015 12:44pm Chief Complaint and Reason for Visit Chief Complaint 8 WK F/U fall CONTUSION OF LEFT ELBOW/COPY RESULTS TO EL SCREENING DISP FX OF HEAD OF L RADIUS, 2 PART NONDISP FX OF Reason for Visit Essential hypertensi on Diastolic dysfunction Hyperlipidemia Chief Complaint 1 Y FU 2-part nondisplaced fracture of surgical neck of l Reason for Visit Essential hypertensi on Hyperlipidemia Chief Complaint 1 Y FU 2-part nondisplaced fracture of surgical neck of l LEFT SHOULDER FX Reason for Visit Essential hypertensi on Hyperlipidemia Chief Complaint LEFT SHOULDER FX Chief Complaint LEFT KNEE PAIN LFT SHOULDER JOINT REPLACEMENT / RX HERE Chief Complaint LEFT KNEE PAIN LFT SHOULDER JOINT REPLACEMENT / RX HERE R KNEE RX HERE Pain in leg, unspecified Chief Complaint LFT SHOULDER JOINT R EPLACEMENT / RX HERE R KNEE RX HERE Pain in leg, unspecified RIGHT LEG Reason for Visit Osteoarthritis of ri ght knee Right knee pain Chief Complaint R KNEE RX HERE Pain in leg, unspecified RIGHT LEG Reason for Visit Osteoarthritis of ri ght knee Right knee pain Chief Complaint Admit Date HTN: last ov Nov 2021 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 INSPECTOR (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 ) November 14, 2024 8:26am Reason for Visit Admit Date Essential hypertension November 14 8:26am Hyperlipidemia November 14, 2024 8:26am Family History No Family History Records Found Relationship Condition Age at Onset Recorded Date/T carly mother Malignant neoplasm of colon Unknown Hypertension Unknown Diabetes mellitus Unknown Kidney disorder Unknown Cardiac disease Unknown father Cardiac disease Unknown Hyperlipidemia Unknown Myocardial infarction Unknown brother Myocardial infarction Unknown sister Myocardial infarction Unknown Reason for Referral Specialty Diagnoses / Procedures Referred By Contac t Referred To Contact Pain Management Diagnoses Primary osteoarthritis involving multiple joints Procedures CONSULT TO PAIN MGT Irasema Vela MD [address] [address] Referral ID Status Reason Start Date Expiration Date Visits Requested Visits Authorized [id number] Ref Not Required PCP Requested Referral 05/31/2021 08/29/2021 3 3 Specialty Diagnoses / Procedures Referred By Contac t Referred To Contact PATIENT SERVICES Diagnoses Acquired absence of breast and absent nipple, unspecified laterality Procedures BREAST PROSTHESIS, MASTECTOMY BRA BREAST PROSTHESIS, MASTECTOMY BRA Cchs, Provider NON-STAFF PROVIDER [facility] [address] [place] [address] Referral ID Status Reason Start Date Expiration Date Visits Requested Visits Authorized [id number] Pending Review Auto-Generat ed Referral 07/25/2022 07/26/2023 1 1 Specialty Diagnoses / Procedures Referred By Contac t Referred To Contact PATIENT SERVICES Diagnoses Acquired absence of breast and absent nipple, unspecified laterality Procedures BREAST PROSTHESIS, SILICONE BREAST PROSTHESIS, SILICONE Cchs, Provider NON-STAFF PROVIDER [facility] [address] [place] [address] Referral ID Status Reason Start Date Expiration Date Visits Requested Visits Authorized [id number] Pending Review Auto-Generat ed Referral 07/25/2022 07/26/2023 1 1 Referral ID Status Reason Start Date Expiration Date Visits Requested Visits Authorized [id number] Pending Review Auto-Generat ed Referral 07/25/2022 07/26/2023 1 1 Specialty Diagnoses / Procedures Referred By Yani t Referred To Contact CT IMAGING Diagnoses Sarcoidosis of lung (HCC) Procedures CT CHEST WO IVCON DIAGNOSTIC COMPUTED TOMOGRAPHY THORAX W/O Kamila Smith MD [address] [place] [address] [place] [address] Referral ID Status Reason Start Date Expiration Date Visits Requested Visits Authorized [id number] Authorized Auto-Generat ed Referral 11/12/2023 12/11/2024 1 1 Specialty Diagnoses / Procedures Referred By Yani t Referred To Contact CT IMAGING Diagnoses Mass of left chest wall Procedures CT CHEST W IVCON DIAGNOSTIC COMPUTED TOMOGRAPHY THORAX W/CONTRAST Kamila Mercado MD [address] [place] [address] Ct Imaging [id number] Referral ID Status Reason Start Date Expiration Date Visits Requested Visits Authorized [id number] New Request Auto-Generat ed Referral 11/12/2023 12/11/2024 1 1 Specialty Diagnoses / Procedures Referred By Yani rossi Referred To Contact CT IMAGING Diagnoses Lung nodules Procedures CT CHEST WO IVCON DIAGNOSTIC COMPUTED TOMOGRAPHY THORAX W/O Kamila Smith MD [address] [place] [address] Ct Imaging [facility] Referral ID Status Reason Start Date Expiration Date Visits Requested Visits Authorized [id number] Authorized Auto-Generat ed Referral 03/04/2024 01/01/2025 1 1 Summary Purpose Medications Administered Section Inactive Administered Medications - up to 3 most recent administrations Medication Order MAR Action Action Date Dose Rate Site diphenhydrAMINE 12.5-50 mg injection (BENADRYL) 12.5-50 mg, INTRAVENOUS, DIRECTED, Starting on Sun12/15/22 at 1200, Until Sun12/15/22 at 1559, DOSING DIRECTED BY PHYSICIAN FOR PROCEDURAL SEDATION ONLY, Intraprocedure Given 12/15/2022 12:17 PM EDT 25 mg lactated ringers iv infusion 75 mL/hr, INTRAVENOUS, CONTINUOUS, Starting on Sun12/15/22 at 1200, Until Sun12/15/22 at 1243, Preprocedure New Bag/Syringe/Bottle 12/15/2022 11:40 AM EDT 75 mL/hr 75 mL/hr meperidine (PF) 12.5-100 mg injection (DEMEROL) 12.5-100 mg, INTRAVENOUS, DIRECTED, Starting on Sun12/15/22 at 1200, Until Sun12/15/22 at 1559, DOSING DIRECTED BY PHYSICIAN FOR PROCEDURAL SEDATION ONLY, Intraprocedure Given 12/15/2022 12:04 PM EDT 25 mg midazolam 1-5 mg injection (VERSED) 1-5 mg, INTRAVENOUS, DIRECTED, Starting on Sun12/15/22 at 1200, Until Sun12/15/22 at 1559, DOSING DIRECTED BY PHYSICIAN FOR PROCEDURAL SEDATION ONLY, Intraprocedure Given 12/15/2022 12:07 PM EDT 2 mg Given 12/15/2022 12:04 PM EDT 3 mg Additional Source Comments Source Comments (unrecognize d section and content) In the event this informatio n is protected by the Federal Confidentiality of Alcohol and Drug Abuse Patient Records regulations: The Federal rules restrict any use of the information to criminally investigate or prosecute any alcohol or drug abuse patient.[facility] HealthcareIn the event this information is protected by the Federal Confidentiality of Alcohol and Drug Abuse Patient Records regulations: The Federal rules restrict any use of the information to criminally investigate or prosecute any alcohol or drug abuse patient.[facility] HealthcareIn the event this information is protected by the Federal Confidentiality of Alcohol and Drug Abuse Patient Records regulations: The Federal rules restrict any use of the information to criminally investigate or prosecute any alcohol or drug abuse patient.[facility] HealthcareIn the event this information is protected by the Federal Confidentiality of Alcohol and Drug Abuse Patient Records regulations: The Federal rules restrict any use of the information to criminally investigate or prosecute any alcohol or drug abuse patient.[facility] HealthcareIn the event this information is protected by the Federal Confidentiality of Alcohol and Drug Abuse Patient Records regulations: The Federal rules restrict any use of the information to criminally investigate or prosecute any alcohol or drug abuse patient.[facility] HealthcareIn the event this information is protected by the Federal Confidentiality of Alcohol and Drug Abuse Patient Records regulations: The Federal rules restrict any use of the information to criminally investigate or prosecute any alcohol or drug abuse patient.[facility] HealthcareIn the event this information is protected by the Federal Confidentiality of Alcohol and Drug Abuse Patient Records regulations: The Federal rules restrict any use of the information to criminally investigate or prosecute any alcohol or drug abuse patient.[facility] HealthcareIn the event this information is protected by the Federal Confidentiality of Alcohol and Drug Abuse Patient Records regulations: The Federal rules restrict any use of the information to criminally investigate or prosecute any alcohol or drug abuse patient.[facility] HealthcareIn the event this information is protected by the Federal Confidentiality of Alcohol and Drug Abuse Patient Records regulations: The Federal rules restrict any use of the information to criminally investigate or prosecute any alcohol or drug abuse patient.[facility] HealthcareIn the event this information is protected by the Federal Confidentiality of Alcohol and Drug Abuse Patient Records regulations: The Federal rules restrict any use of the information to criminally investigate or prosecute any alcohol or drug abuse patient.[facility] HealthcareIn the event this information is protected by the Federal Confidentiality of Alcohol and Drug Abuse Patient Records regulations: The Federal rules restrict any use of the information to criminally investigate or prosecute any alcohol or drug abuse patient.[facility] HealthcareIn the event this information is protected by the Federal Confidentiality of Alcohol and Drug Abuse Patient Records regulations: The Federal rules restrict any use of the information to criminally investigate or prosecute any alcohol or drug abuse patient.[facility] HealthcareIn the event this information is protected by the Federal Confidentiality of Alcohol and Drug Abuse Patient Records regulations: The Federal rules restrict any use of the information to criminally investigate or prosecute any alcohol or drug abuse patient.[facility] HealthcareIn the event this information is protected by the Federal Confidentiality of Alcohol and Drug Abuse Patient Records regulations: The Federal rules restrict any use of the information to criminally investigate or prosecute any alcohol or drug abuse patient.[facility] HealthcareIn the event this information is protected by the Federal Confidentiality of Alcohol and Drug Abuse Patient Records regulations: The Federal rules restrict any use of the information to criminally investigate or prosecute any alcohol or drug abuse patient.[facility] HealthcareIn the event this information is protected by the Federal Confidentiality of Alcohol and Drug Abuse Patient Records regulations: The Federal rules restrict any use of the information to criminally investigate or prosecute any alcohol or drug abuse patient.[facility] HealthcareIn the event this information is protected by the Federal Confidentiality of Alcohol and Drug Abuse Patient Records regulations: The Federal rules restrict any use of the information to criminally investigate or prosecute any alcohol or drug abuse patient.[facility] Reason for Visit (unrecogniz ed section and content) Reason Comments Patient Question Reason Comments Joint Pain Reason Comments Results Reason Comments PreOp Call Reason Comments Medication Problem Reason Comments Procedure Excision of skin les ion of left thigh Reason Comments Consult Lump under left arm Reason Comments Radiology CT Specialty Diagnoses / Procedures Referred By Contac t Referred To Contact CT IMAGING Diagnoses Sarcoidosis of lung (HCC) Procedures CT CHEST WO IVCON DIAGNOSTIC COMPUTED TOMOGRAPHY THORAX W/O Kamila Smith MD [address] [facility] [address] [place] [address] Referral ID Status Reason Start Date Expiration Date V isits Requested Visits Authorized [id number] Closed Auto-Generate d Referral 11/12/2023 12/11/2024 1 1 Reason Comments Follow Up Ct scan 11/26/23, Specialty Diagnoses / Procedures Referred By Contac t Referred To Contact CT IMAGING Diagnoses Lung nodules Procedures CT CHEST WO IVCON DIAGNOSTIC COMPUTED TOMOGRAPHY THORAX W/O Kamila Smith MD [address] [facility] [place] [address] [place] [address] Referral ID Status Reason Start Date Expiration Date V isits Requested Visits Authorized [id number] Closed Auto-Generate d Referral 03/04/2024 01/01/2025 1 1 Reason Comments Release Of Medical Records Imaging Care Teams (unrecognized sec tion and content) Hammerer Tab Relationship Specialty Start Date End Date Jesus Peters MD [address] [facility] [address] [place] [address] PCP - General Family Practice 03/26/18 Hammerer Tab Relationship Specialty Start Date End Date Jesus Peters MD [address] [facility] [address] [place] [address] PCP - General Family Practice 03/26/18 Team Status: Active Member Role Status Dates Dr. Jesus Peters MD Family Provider Active Dr. Jesus Peters MD Primary Care Provider Active Team Status: Inactive Member Role Status Dates Dr. Jesus Peters MD Primary Care Provider, Referring Provider Active Dr. Ermias Clifton MD Attending Provider Active Team Status: Inactive Member Role Status Dates Dr. Jesus Peters MD Primary Care Provider Active Dr. Chris Vazquez DO Attending Provider Active Team Status: Inactive Member Role Status Dates Dr. Jesus Peters MD Primary Care Provider Active Dr. Kervin Melo DO Attending Provider, Referrin g Provider Active Team Status: Inactive Member Role Status Dates Dr. Jesus Peters MD Primary Care Provi leonie, Attending Provider, Referring Provider Active Hammerer Tab Relationship Specialty Start Date End Date Jesus Peters MD [address] [facility] [address] [place] [address] PCP - General Family Medicine 03/26/18 Hammerer Tab Relationship Specialty Start Date End Date Jesus Peters MD [address] [facility] [address] [place] [address] PCP - General Family Medicine 03/26/18 Hammerer Tab Relationship Specialty Start Date End Date Jesus Peters MD [address] [facility] [address] [place] [address] PCP - General Family Medicine 03/26/18 Hammerer Tab Relationship Specialty Start Date End Date Jesus Peters MD [address] [facility] [address] [place] [address] PCP - General Family Medicine 03/26/18 Team Status: Inactive Member Role Status Dates Dr. Jesus Peters MD Primary Care Provider, Attending Provider Active Team Status: Active Member Role Status Dates Dr. Jesus Peters MD Primary Care Provider Active Dr. Nayeli Perez MD Attending Provider, Referring Pr ovider Active CHANDANA PACE Active Hammerer Tab Relationship Specialty Start Date End Date Jesus Peters MD [address] [facility] [address] [place] [address] PCP - General Family Medicine 03/26/18 Hammerer Tab Relationship Specialty Start Date End Date Jesus Peters MD [address] [facility] [address] [place] [address] PCP - General Family Medicine 03/26/18 Hammerer Tab Relationship Specialty Start Date End Date Jesus Peters MD [address] [facility] [address] [place], [place] [address] PCP - General Family Medicine 03/26/18 Team Status: Active Member Role Status Dates Dr. Jesus Peters MD Primary Care Provider Active Dr. Erwin Ibarra MD Attending Provider Active Team Status: Inactive Member Role Status Dates Dr. Jesus Peters MD Primary Care Provider Active Dr. Nayeli Perez MD Attending Provider, Referring Pr ovider Active CHANDANA PACE Active Team Status: Active Member Role Status Dates Dr. Jesus Peters MD Primary Care Provider Active ARTEMIO WOODSON Attending Provider, Referring Provider A ctARTEMIO Liriano Active Team Status: Inactive Member Role Status Dates Dr. Jesus Peters MD Primary Care Provider, Referring Provider Active Morgan Juarez MD Attending Provider Active Team Status: Active Member Role Status Dates Dr. Jesus Peters MD Primary Care Provider, Referring Provider Active Dr. Erwin Ibarra MD Attending Provider Active Team Status: Inactive Member Role Status Dates Dr. Jesus Peters MD Primary Care Provider Active ARTEMIO WOODSON Attending Provider, Referring Provider A ctARTEMIO Liriano Active Hammerer Tab Relationship Specialty Start Date End Date Jesus Peters MD [address] [place] [address] [address] [place] [address] PCP - General Family Medicine 03/26/18 Hammerer Tab Relationship Specialty Start Date End Date Jesus Peters MD [address] [facility] [address] [place] [address] PCP - General Family Medicine 03/26/18 Hammerer Tab Relationship Specialty Start Date End Date Jesus Peters MD [address] [facility] [address] [place] [address] PCP - General Family Medicine 03/26/18 Hammerer Tab Relationship Specialty Start Date End Date Jesus Peters MD [address] [facility] [address] [place] [address] PCP - General Family Medicine 03/26/18 Hammerer Tab Relationship Specialty Start Date End Date Jesus Peters MD [address] [facility] [address] [place], [place] [address] PCP - General Family Medicine 03/26/18 Hammerer Tab Relationship Specialty Start Date End Date Jesus Peters MD [address] [facility] [address] [place], [place] [address] PCP - General Family Medicine 03/26/18 Team Status: Active Member Role Status Dates Dr. Jesus Peters MD Primary Care Provider Active Team Status: Inactive Member Role Status Dates Dr. Jesus Peters MD Primary Care Provider Active Start: March 20, 2024 End: March 20, 2024 Dr. Jesus Peters MD Attending Provider Active Start: March 20, 2024 End: March 20, 2024 Dr. Jesus Peters MD Referring Provider Active Start: March 20, 2024 End: March 20, 2024 Team Status: Inactive Member Role Status Dates Dr. Jesus Peters MD Primary Care Provider Active Start: April 03, 2024 End: April 03, 2024 Dr. Erwin Wiley MD Attending Provider Active Start: April 03, 2024 End: April 03, 2024 Team Status: Inactive Member Role Status Dates Dr. Jesus Peters MD Primary Care Provider Active Start: May 20, 2024 End: May 20, 2024 Dr. Erwin Wiley MD Attending Provider Active Start: May 20, 2024 End: May 20, 2024 Dr. Erwin Wiley MD Referring Provider Active Start: May 20, 2024 End: May 20, 2024 Team Status: Inactive Member Role Status Dates Dr. Jesus Peters MD Primary Care Provider Active Start: June 05, 2024 End: June 05, 2024 Dr. Jesus Peters MD Attending Provider Active Start: June 05, 2024 End: June 05, 2024 Dr. Jesus Peters MD Referring Provider Active Start: June 05, 2024 End: June 05, 2024 Team Status: Active Member Role/Relationship Status Dates Dr. Jesus Peters MD Primary Care Provider Active Team Status: Inactive Member Role/Relationship Status Dates Dr. Jesus Peters MD Primary Care Provider Active Start: October 06, 2024 End: October 06, 2024 Dr. Jesus Peters MD Attending Provider Active Start: October 06, 2024 End: October 06, 2024 Team Status: Active Member Role/Relationship Status Dates Dr. Jesus Peters MD Primary care physician Active Team Status: Inactive Member Role/Relationship Status Dates Dr. Jesus Peters MD Primary care physician Active Start: October 06, 2024 End: October 06, 2024 Dr. Jesus Peters MD Attending physician Active Start: October 06, 2024 End: October 06, 2024 Team Status: Inactive Member Role/Relationship Status Dates Dr. Jesus Peters MD Primary care physician Active Start: November 14, 2024 End: November 14, 2024 Dr. Jesus Peters MD Referring Provider Active Start: November 14, 2024 End: November 14, 2024 Leah Pearce OUTBOUND SUPERVISOR, OUTBOUND SUPERVISOR-C Attending physician Active Start: November 14, 2024 End: November 14, 2024 Goals (unrecognized section and content) Goals may be documented in a n alternate sectionGoals may be documented in an alternate sectionGoals may be documented in an alternate sectionGoals may be documented in an alternate sectionGoals may be documented in an alternate sectionGoals may be documented in an alternate sectionGoals may be documented in an alternate sectionGoals may be documented in an alternate sectionGoals may be documented in an alternate sectionGoals may be documented in an alternate sectionGoals may be documented in an alternate sectionGoals may be documented in an alternate sectionGoals may be documented in an alternate sectionGoals may be documented in an alternate sectionGoals may be documented in an alternate section INFORMATION SOURCE (unrecogn ized section and content) DATE CREATED AUTHOR 07/03/2021 [facility] DATE CREATED AUTHOR AUTHOR'S ORGANIZ ATION 08/31/2022 [facility] DATE CREATED AUTHOR AUTHOR'S ORGANIZ ATION 05/10/2024 [facility] DATE CREATED AUTHOR AUTHOR'S ANNA ATION 12/03/2024 [facility] FOR RECORDS PERTAINING TO PATIENTS WHO ARE OR HAVE BEEN ENROLLED IN A CHEMICAL DEPENDENCY/SUBSTANCEABUSE PROGRAM, SOME INFORMATION MAY BE OMITTED. This clinical summary was aggregated from multiple sources. Caution should be exercised in using it in the provision of clinical care. This summary normalizes information from multiple sources, and as a consequence, information in this document may materially change the coding, format and clinical context of patient data. In addition, data may be omitted in some cases. CLINICAL DECISIONS SHOULD BE BASED ON THE PRIMARY CLINICAL RECORDS. [facility] provides no warranty or guarantee of the accuracy or completeness of information in this document.
--- OUTSIDE RECORDS SUMMARY | 2024-12-11 07:40 | XMS RPT_ITS | CCD ---
Author Organization [facility] CliniSyla Care Team Providers Care Janitorial Account Manager Name Role Phone Mason Link MD Unavailable Jesus Peters MD Primary Care Provider Dr. Jesus Peters Primary Care Provider [phone] Jesus Peters Referring Provider Ramses TRANSPORTATION DISPATCHER, NAVJOT Lynn Attending Provider Dr. Jesus Peters Primary Care Provider [phone] Jesus Peters Referring Provider [phone] Ermias Clifton Attending Provider Jesus Peters MD Primary Care Provider [phone] JESUS PETERS Primary Care Unavailable NAYELI PEREZ Referring UnavailJESUS Maya Primary Care Unavailable NAYELI PEREZ Admitting UnavailNAYELI Castillo Attending Unavailavelino e JESUS PETERS Primary Care Unavailable Jesus Peters MD Primary Care Provider [phone] Jesus Peters Primary Care Provider [phone] Erwin Ibarra Attending Provider [phone] Dr. Jesus Peters Referring Provider [phone] [...] Fran ALBERTO, Dr. Lee Referring Provider Ramses CASTLILO-C, Leah Attending Physician Ramses TRANSPORTATION DISPATCHER, Leah Attending Unavailable Peters, Jesus Referring Unavailable Peters, Jesus Primary Care Unavailable Peters, Jesus Attending Unavailable Peters, Jesus Primary Care Unavailable Ramses TRANSPORTATION DISPATCHER, Leah Attending Unavailable Ramses TRANSPORTATION DISPATCHER, Leah Referring Unavailable Peters, Jesus Primary Care [...] 10 GI Upset, Vomiting, Other: See Comments [facility] Work Phone: Comment on above: FEVER (3 sources) HYDROmorphone drug allergy 11-26-19 10 [facility] Work Phone: (20 sources) meloxicam; Translations: [MELOXICAM] drug allergy 11-06-19 12 Other: See Comments [facility] Work Phone: [phone] (5 sources) morphine; Translations: [MORPHINE] drug allergy 07-04-19 07 [facility] Work Phone: [phone] (3 sources) nitrofurantoin drug allergy 03-19-19 13 Gi-upset [facility] Work Phone: [phone] (3 sources) penicillin v drug allergy 11-26-19 10 [facility] Work Phone: [phone] (20 sources) predniSONE; Translations: [PREDNISONE] drug allergy 07-04-19 07 Unknown, Other: See Comments [facility] Work Phone: [phone] Comment on above: 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 [facility] Work Phone: [phone] (3 sources) CLINDAMYACIN drug allergy 07-20-19 16 [facility] Work Phone: [phone] (3 sources) MYCRODANTIN drug allergy 11-26-19 10 [facility] Work Phone: [phone] (20 sources) Chlorhexidine; Translations: [CHLORHEXIDINE] Drug Allergy 02-10-20 21 Itching [facility] (20 sources) Erythromycin; Translations: [ERYTHROMYCIN BASE] Drug Allergy 02-10-20 21 Hives [facility] (20 sources) fentaNYL; Translations: [FENTANYL] Drug Allergy 02-10-20 21 Unknown, Other: See Comments [facility] Comment on above: DECREASED LEVEL OF C ONSIOUSNESS (5 sources) HMG-CoA reductase inhibitor; Translations: [DUZIHMC-DCJ-XNE REDUCTASE INHIBITORS] Drug Intolerance 05-07-19 22 Other: See Comments [facility] (20 sources) HYDROmorphone; Translations: [HYDROMORPHONE] Drug Allergy 11-08-19 12 Diarrhea, Vomiting, Other: See Comments [facility] (20 sources) Latex; Translations: [LATEX] Drug Allergy 02-10-20 21 Rash [facility] (20 sources) Morphine Drug Allergy 07-04-19 07 Diarrhea, Vomiting [facility] (19 sources) Nitrofurantoin; Translations: [NITROFURANTOIN MACROCRYSTALLINE] Drug Allergy 07-04-19 07 GI Upset [facility] (20 sources) Nitrofurantoin; Translations: [NITROFURANTOIN] Drug Allergy 02-10-20 21 Vomiting [facility] (8 sources) Penicillins; Translations: [PENICILLINS] Drug Allergy 07-04-19 07 Hives [facility] (19 sources) Povidone-Iodine; Translations: [POVIDONE-IODINE] Drug Allergy 09-29-19 20 [facility] Work Phone: (20 sources) Sulfonamides (Antibiotic); Translations: [SULFA (SULFONAMIDE ANTIBIOTICS)] Propensity to adverse reactions to drug 07-04-19 07 Other: See Comments [facility] (19 sources) Varicella-Zoster Virus Vaccine Live ([place]-Merck) strain; Translations: [ZOSTER VACCINE LIVE (PF)] Drug Allergy 06-10-19 08 Vomiting, Other: See Comments [facility] (20 sources) Zinc; Translations: [ZINC] Drug Allergy 02-10-20 21 GI Upset [facility] (20 sources) Iodinated Contrast Media; Translations: [IODINATED CONTRAST MEDIA] Drug Allergy 06-25-19 20 [facility] Work Phone: (16 sources) Hnmmtou-Bsn-Hdn Reductase Inhibitor; Translations: [Rndlqfu-Ybm-Iyk Reductase Inhibitor] Propensity to adverse reactions 02-10-20 21 myalgias [facility] Comment on above: doesn't lower choles terol (2 sources) BAND AID Allergy to substance 02-10-20 Rash [facility] Work Phone: (2 sources) shingle vaccine Allergy to substance 02-10-20 21 Vomiting [facility] Work Phone: (14 sources) Adhesive Tape; Translations: [adhesive tape] Allergy to substance 11-23-19 Rash [facility] Comment on above: (FROM BAND-AIDS) (13 sources) Penicillins Allergy to substance 11-23-19 Hives [facility] (13 sources) Sulfonamides (Antibiotic) Allergy to substance 11-23-19 PT UNSURE OF REACTION [facility] (13 sources) Triiodobenzoic Acids Allergy to substance 11-23-19 Rash [facility] (13 sources) Varicella zoster virus glycoprotein E Drug Allergy 11-23-19 Other [facility] Comment on above: VOMITING, BP ELEVATE D, COULDN'T STAND (14 sources) vaccine adjuvant system, AS01B liposomal; Translations: [vaccine adjuvant system, AS01B liposomal] Allergy to substance 11-23-19 Other [facility] Comment on above: VOMITING, BP ELEVATE D, COULDN'T STAND (14 sources) HMG-CoA reductase inhibitor Drug Intolerance 05-07-19 22 Other: See Comments [facility] (13 sources) Penicillins Drug Allergy 07-04-19 07 [facility] (15 sources) guaiFENesin / HYDROmorphone; Translations: [DILAUDID COUGH] Drug Allergy 07-29-19 23 Vomiting [facility] (15 sources) Iodine; Translations: [IODINE] Drug Allergy 07-29-19 Other: See Comments [facility] (1 source) Chlorhexidine Drug Allergy 11-15-19 25 [facility] (1 source) Erythromycin Drug Allergy 11-15-19 25 [facility] (1 source) fentaNYL Drug Allergy 11-15-19 25 [facility] (1 source) Gemfibrozil Drug Allergy 11-15-19 25 [facility] (1 source) HYDROmorphone Drug Allergy 11-15-19 25 [facility] (1 source) Latex Drug allergy (disorder) 11-15-19 25 [facility] (1 source) Morphine Drug Allergy 11-15-19 25 [facility] (1 source) Nitrofurantoin Drug Allergy 11-15-19 25 [facility] (1 source) Penicillins Drug allergy (disorder) 11-15-19 25 [facility] (1 source) Sulfonamides (Antibiotic) Drug allergy (disorder) 11-15-19 [facility] (1 source) Zinc Drug Allergy 11-15-19 [facility] (1 source) Iodinated Contrast Media Drug allergy (disorder) 11-15-19 [facility] (1 source) varicella-zoster virus glycoprotein E, recombinant Drug allergy (disorder) 11-15-19 [facility] Medications Current Medications Medication Drug Class(es) [...] ug PO daily November 14, 2024 12:00am [facility] Complies with drug therapy Start: 03-01-2018 [...] One tablet by mouth daily. LEVOTHYROXINE SODIUM [id number] Anali Martino LPN take 1 tablet by rocio th once daily SYNTHROID 125 MCG TABS One tablet by mouth daily LEVOTHYROXINE SODIUM [id number] Kamila Mercado take 1 tablet by rocio th once daily SYNTHROID 50 MCG TABS One tablet by mouth daily. LEVOTHYROXINE SODIUM [id number] Anali Martino DIRECTOR OF ENTERTAINMENT take 1 tablet by rocio th once daily SYNTHROID 125 MCG TABS One tablet by mouth daily LEVOTHYROXINE SODIUM 66609596262 Kamila Mercado Comment on above: Take 50 [...] times daily as needed for pain OXYCODONE-ACETAMINOPHEN 26388156877 Kamila López LPN Start: 03-26-2014 take 1-2 tablets by mouth four times daily as needed for pain PERCOCET 5-325 MG TABS one to two tablet s by mouth four times daily as needed for pain OXYCODONE-ACETAMINOPHEN [id number] Mason Link MD Start: 08-20-2013 take 1 tablet by rocio th four times daily as needed for pain PERCOCET 5-325 MG TABS One tablet by mouth four times daily as needed for pain OXYCODONE-ACETAMINOPHEN [id number] Mason Link MD Start: 08-20-2013 End: 10-07-2013 take 1 tablet by mouth four times daily as needed for pain PERCOCET 5-325 MG TABS One tablet by mouth four times daily as needed for pain OXYCODONE-ACETAMINOPHEN [id number] Kamila López LPN Start: 07-07-2013 End: 08-12-2013 take 1-2 tablets by mouth four times daily as needed for pain PERCOCET 5-325 MG TABS one to two tablet s by mouth four times daily as needed for pain OXYCODONE-ACETAMINOPHEN [id number] Kamila López LPN Start: 07-07-2013 take 1-2 tablets by mouth four times daily as needed for pain PERCOCET 5-325 MG TABS one to two tablet s by mouth four times daily as needed for pain OXYCODONE-ACETAMINOPHEN [id number] Mason Link MD Start: 06-10-2013 take 1-2 tablets by mouth four times daily as needed for pain PERCOCET 5-325 MG TABS one to two tablet s by mouth four times daily as needed for pain OXYCODONE-ACETAMINOPHEN [id number] Mason Link MD Start: 06-10-2013 End: 06-24-2013 take 1-2 tablets by mouth four times daily as needed for pain PERCOCET 5-325 MG TABS one to two tablet s by mouth four times daily as needed for pain OXYCODONE-ACETAMINOPHEN 46688473731 Kamila Jeison López LPN Start: 05-21-2013 End: 04-03-2014 take 1-2 tablets by mouth four times daily as needed for pain PERCOCET 5-325 MG TABS one to two tablet s by mouth four times daily as needed for pain OXYCODONE-ACETAMINOPHEN 40211564735 Kamila Jeison López LPN Start: 05-21-2013 take 1-2 tablets by mouth four times daily as needed for pain PERCOCET 5-325 MG TABS one to two tablet s by mouth four times daily as needed for pain OXYCODONE-ACETAMINOPHEN [id number] Mason Link MD Start: 05-21-2013 End: 06-24-2013 take 1-2 tablets by mouth four times daily as needed for pain PERCOCET 5-325 MG TABS one to two tablet s by mouth four times daily as needed for pain OXYCODONE-ACETAMINOPHEN 10514042254 Kamila Jeison López LPN acyclovir 800 mg [...] five times daily for 10 days ACYCLOVIR [id number] Bo Ann MA aspirin 81 mg chewable [...] TBEC One tablet by mouth daily ASPIRIN [id number] Sri Ely Ken End: 04-17-2013 take 1 [...] TBEC One tablet by mouth daily BISACODYL 33199471661 Mason Link MD calcium ascorbate 50 mg [...] tablet by mouth once daily CALCIUM CARBONATE 94774979238 Bo Ann MA calcium carbonate 1500 mg [...] by mouth twice daily. CALCIUM CARBONATE-VITAMIN D 10835058403 Douglas Moncada MD Start: 11-25-2009 End: 03-19-2012 take 1 tablet by mouth twice daily CALCIUM 500+D 500-400 MG-UNIT TABS One tablet by mouth twice daily. CALCIUM CARBONATE-VITAMIN D 15026102485 Bo Ann MA cholecalciferol 0.025 mg oral [...] CAPS Two tablets by mouth daily CHOLECALCIFEROL 26902932930 Jerome Shukla Comment on above: Take 6,000 [...] by mouth three times daily CLINDAMYCIN HCL 35223335240 Mason Link MD Start: 05-21-2013 End: 06-10-2013 take 1 tablet by mouth three times daily CLEOCIN 300 MG CAPS One tablet by mouth three times daily CLINDAMYCIN HCL 02989283522 Kamila López LPN ubidecarenone 100 mg oral capsule (16 sources) Start: 12-18-2011 End: 03-20-2012 take 1 capsule by mouth once daily coenzyme Q10 (CO Q-10) 100 mg cap Take 1 capsule by mouth once daily. 0 12/18/2011 Active ubidecarenone Q- 10 (CO Q-10) 10 mg cap Take by mouth once daily. Active [facility] CO Q-10 100 MG CAPS One tablet by mouth daily COENZYME Q10 [id number] Bo Ann [place] End: 03-20-2012 take 1 tablet by mouth once daily CO Q-10 100 MG CAPS One tablet by mouth daily COENZYME Q10 46849771702 Alysha Krueger MD Comment on above: Take 1 capsule by mo [facility] once daily. diazePAM 5 mg oral tablet (18 sources) Benzodiazepine Start: 4 End: 4 take 1 tablet by mouth four times daily as needed for muscle spasms VALIUM 5 MG TABS One tablet by mouth four times daily as needed for spasm DIAZEPAM [id number] Kamila López LPN docusate sodium 100 mg [...] tablet by mouth twice daily DOCUSATE SODIUM 55455663185 Kamila López LPN Start: 05-21-2013 End: 07-21-2013 take 1 tablet by mouth twice daily COLACE 100 MG CAPS One tablet by mouth twice daily DOCUSATE SODIUM 89123126690 Kamila López LPN doxycycline hyclate 100 mg oral capsule (19 sources) Tetracycline-class Drug Start: 03-01-2018 End: 11-21-2019 take 1 capsule by mouth twice daily Doxycycline Hyclate 100 MG capsule Discontinued 100 mg PO TWICE A DAY 10 July 29, 2019 12:00am November 21, 2019 11:36am ergocalciferol 37715 unt oral tablet (6 sources) Provitamin D2 Compound End: 12-28-2015 take 1 tablet by mouth every week VITAMIN D (ERGOCALCIFEROL) 22426 UNIT CAPS One tablet by mouth weekly ERGOCALCIFEROL 57423133551 Hoskins M Alam End: 12-28-2015 take 1 tablet by mouth every week VITAMIN D (ERGOCALCIFEROL) 65529 UNIT CAPS One tablet by mouth weekly ERGOCALCIFEROL 18620113485 Hoskins M Alam 3.5 ml evolocumab 120 [...] TABS One tablet by mouth daily EZETIMIBE [id number] Kamila Mercado IRON POLYSACCH [id number] (6 sources) Vitamin B12 Start: 4 End: 4 take 1 tablet by mouth once daily at mealtime IFEREX 150 FORTE 150-25-1 MG-MCG-MG CAPS One tablet by mouth daily with meals IRON POLYSACCH [id number] Kamila López DIRECTOR OF ENTERTAINMENT Start: 05-21-2013 End: 07-21-2013 take 1 tablet by mouth once daily at mealtime IFEREX 150 FORTE 150-25-1 MG-MCG-MG CAPS One tablet by mouth daily with meals IRON POLYSACCH [id number] Kamila López DIRECTOR OF ENTERTAINMENT Start: 05-21-2013 take 1 tablet by rocio th once daily at mealtime IFEREX 150 FORTE 150-25-1 MG-MCG-MG CAPS One tablet by mouth daily with meals IRON POLYSACCH [id number] Mason Link MD gabapentin 100 mg oral [...] CAPS One tablet by mouth daily GABAPENTIN 83481854223 Mason Link MD Start: 07-28-2013 End: 10-31-2013 take 1 tablet by mouth once daily NEURONTIN 100 MG CAPS One tablet by mouth daily GABAPENTIN 27388775160 Mason Link MD gemfibrozil 600 mg oral tablet (6 sources) Peroxisome Proliferator Receptor alpha Agonist Start: 11-25-2009 End: 03-19-2012 take 1 tablet by mouth twice daily GEMFIBROZIL 600 MG TABS One tablet by mouth twice daily. GEMFIBROZIL 69320105423 Bo Ann MA hydroCHLOROthiazide 12.5 mg oral [...] days per week for 6 weeks IMIQUIMOD 43558176305 Kamila L López DIRECTOR OF ENTERTAINMENT Start: 05-15-2016 End: 07-24-2016 ALDARA 5 % CREA apply daily at night 5 days per week for 6 weeks IMIQUIMOD 96926933057 Kamila L López DIRECTOR OF ENTERTAINMENT Start: 05-15-2016 ALDARA 5 % CRE A apply daily at night 5 days per week for 6 weeks IMIQUIMOD 37826172290 Mason Link MD Start: 07-26-2015 End: 11-15-2015 ALDARA 5 % CREA apply daily at night 5 days per week for 6 weeks IMIQUIMOD 85725180318 Kamila L López DIRECTOR OF ENTERTAINMENT Start: 07-26-2015 ALDARA 5 % CRE A apply daily at night 5 days per week for 6 weeks IMIQUIMOD [id number] Mason Link MD Start: 07-26-2015 End: 11-15-2015 ALDARA 5 % CREA apply daily at night 5 days per week for 6 weeks IMIQUIMOD 07336513033 Kamila L López DIRECTOR OF ENTERTAINMENT IVERMECTIN (3 sources) Antiparasitic, Pediculicide SOOL ANTRA 1 % CREA IVERMECTIN 07872291508 Kamila L López DIRECTOR OF ENTERTAINMENT SOOLANTRA 1 % CR EA IVERMECTIN 39763099380 Kamila L López DIRECTOR OF ENTERTAINMENT Lactobac Acidoph-Fructooligo s (11 sources) Start: 07-29-2019 [...] One tablet by mouth twice daily LACTOBACILLUS 24116861826 Kamila López LPN Start: 03-26-2014 take 1 tablet by rocio th twice daily ACIDOPHILUS PROBIOTIC TABS One tablet by mouth twice daily LACTOBACILLUS 85705593815 Mason Link MD Start: 06-10-2013 take 1 tablet by rocio th twice daily ACIDOPHILUS PROBIOTIC TABS One tablet by mouth twice daily LACTOBACILLUS 09619858627 Mason Link MD Start: 06-10-2013 End: 06-24-2013 take 1 tablet by mouth twice daily ACIDOPHILUS PROBIOTIC TABS One tablet by mouth twice daily LACTOBACILLUS 21252505459 Kamila López LPN Start: 05-21-2013 End: 06-24-2013 take 1 tablet by mouth twice daily ACIDOPHILUS PROBIOTIC TABS One tablet by mouth twice daily LACTOBACILLUS 89885939182 Kamila López LPN Start: 05-21-2013 take 1 tablet by rocio th twice daily ACIDOPHILUS PROBIOTIC TABS One tablet by mouth twice daily IHSAN 04198588525 Mason Link MD lactobacillus acidophilus 75353149 unt / pectin 100 mg oral tablet (20 sources) Start: 07-13-2015 End: 06-13-2016 take 1 tablet by mouth twice daily Acidophilus-Pectin, [place] 1 EACH tablet Discontinued 1 NMA PO TWICE A DAY July 13, 2015 12:00am June 13, 2016 1:39pm Start: 07-13-2015 End: 06-13-2016 Acidophilus-Pectin, [place] D iscontinued 1 EACH PO TWICE A DAY July 13, 2015 12:00am June 13, 2016 1:39pm Start: 05-21-2013 End: 06-11-2013 take 1 tablet by mouth twice daily Acidophilus-Pectin, [place] 1 EACH tablet Discontinued 1 NMA PO TWICE A DAY 30 May 21, 2013 12:00am June 11, 2013 1:49pm Start: 05-21-2013 End: 06-11-2013 Acidophilus-Pectin, [place] D iscontinued 1 EACH PO TWICE A [...] MG TABS 1 by mouth daily LEVOFLOXACIN 38171862377 Kamila López DIRECTOR OF ENTERTAINMENT lisinopril 10 mg oral tablet (20 sources) [...] tablet by mouth daily with food MELOXICAM 33123269285 Alysha Krueger MD MULTIPLE VITAMIN (2 sources) take 1 tablet by rocio th once daily MULTI-VITAMIN TABS One tablet by mouth daily MULTIPLE VITAMIN 72290843041 Douglas Moncada MD End: 03-19-2012 take 1 tablet by mouth once daily MULTI-VITAMIN TABS One tablet by mouth daily MULTIPLE VITAMIN 74520033027 Bo Ann MA multivitamin (4 sources) End: 03-19-2012 take 1 tablet by mouth once daily MULTI-VITAMIN TABS One tablet by mouth daily MULTIPLE VITAMIN 58127927788 Bo Ann MA take 1 tablet by mouth once pastor y MULTI-VITAMIN TABS One tablet by mouth daily MULTIPLE VITAMIN 54859463097 Douglas Moncada MD niacin 500 mg oral tablet (6 sources) Nicotinic Acid End: 11-25-2009 NIACIN TABS 1500 mg, 1 daily NIACIN TABS 21348625620 Douglas Moncada MD Lindsay-3 Fatty Acids (FISH OIL) 500 mg Cap (4 sources) Start: 07-04-2011 take 1 capsule by mouth once daily Lindsay-3 Fatty Acids (FISH OIL) 500 mg Cap [...] daily 600mg daily OMEGA-3 FATTY ACIDS CAPS 34683965759 Alysha Ely Signs take 1 tablet by mouth once pastor y FISH OIL PEARLS CAPS One tablet by mouth daily 600mg daily OMEGA-3 FATTY ACIDS CAPS 18656737440 Bo Ann MA OMEGA-3 FATTY ACIDS CAPS (2 sources) End: 03-20-2012 take 1 tablet by mouth once daily FISH OIL PEARLS CAPS One tablet by mouth daily 600mg daily OMEGA-3 FATTY ACIDS CAPS 29617082041 Alysha J Signs take 1 tablet by mouth once pastor y FISH OIL PEARLS CAPS One tablet by mouth daily 600mg daily OMEGA-3 FATTY ACIDS CAPS 46772588610 Bo Ann MA ondansetron 4 mg disintegrating [...] One tablet by mouth daily PITAVASTATIN CALCIUM 25816660980 Jerome Shukla predniSONE 10 mg oral tablet [...] daily as needed for nausea PROMETHAZINE HCL 66462334148 Mason Link MD rosuvastatin calcium 10 mg [...] One tablet by mouth daily ROSUVASTATIN CALCIUM 16680779925 Kamila Mercado End: 04-09-2014 take 1 tablet by mouth once daily CRESTOR 10 MG TABS One tablet by mouth daily ROSUVASTATIN CALCIUM 13860307956 Kamila Mercado End: 04-09-2014 take 1 tablet by mouth once daily CRESTOR 20 MG TABS One tablet by mouth daily ROSUVASTATIN CALCIUM 98414452572 Kamila Mercado Comment on above: Take 0.5 tablets by mouth once daily. SILVERCEL (6 sources) Start: 06-24-2013 End: 08-12-2013 SILVERCEL apply daily to the left abdominal wall wound SILVERCEL Kamila López LPN Start: 06-24-2013 SILVERCEL appl y daily to the left abdominal wall wound SILVERCEL Mason Link MD simvastatin 80 mg oral tablet (6 sources) HMG-CoA Reductase Inhibitor End: 03-20-2012 take 1 tablet by mouth once daily SIMVASTATIN 80 MG TABS One tablet by mouth daily SIMVASTATIN 48389959996 Alysha Krueger MD TAMOXIFEN CITRATE TABS (6 sources) Estrogen Agonist/Antagonis t End: 12-22-2013 TAMOXIFEN CITRATE TABS 1 daily TAMOXIFEN CITRATE TABS 94547048807 Patty Rondon LPN TAMOXIFEN CITRAT E TABS 1 daily TAMOXIFEN CITRATE TABS 21671998647 Kamila López LPN traMADol hydrochloride 50 mg [...] twice daily for 3 days VALACYCLOVIR HCL 87059745123 Alysha Krueger MD End: 04-01-2012 take 1 tablet by mouth once daily VALTREX 1 GM TABS One tablet by mouth daily VALACYCLOVIR HCL 61143665023 Bo Ann MA End: 04-01-2012 take 1 tablet by mouth once daily VALTREX 1 GM TABS One tablet by mouth daily VALACYCLOVIR HCL 64587947336 Bo Ann MA take 1 tablet by rocio th once daily VALTREX 1 GM TABS One tablet by mouth daily VALACYCLOVIR HCL 55806777253 Bo Ann MA CHOLECALCIFEROL (3 sources) take 1 tablet by rocio th once daily VITAMIN D 1000 UNIT TABS One tablet by mouth daily CHOLECALCIFEROL 84813043157 Helga Styles take 1 tablet by mouth once pastor y VITAMIN D 1000 UNIT TABS One tablet by mouth daily CHOLECALCIFEROL 98144914152 Helga Styles Problems Active Problems Problem Classification [...] Facility Cardiology Visit Reporton Cardiology Visit Report [facility] [address] [place], [place] [id number] OFFICE VISIT Date of Service: 11/14/24 MR#: [id number] Acct: [id number] Name: MADDISON RIVERA Rep #: [id number] : 1945 Provider: NAVJOT richter Age/Sex: 78/F Location: [facility] Status: Signed HPI HPI History of Present [...] Visit Reasons: HTN: last ov Nov 2021 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 Normal [facility] Anion gap in Serum or Plasma Ordered By: Jesus Peters on 10-06-2024 Anion gap [Moles/Vol] 13 mmol/L 5-15 [facility] BUN/creatinine ratioOrdered By: Jesus Peters on 10-06-2024 Urea nitrogen/Creatinine [Mass ratio] 23.2 mg/mg High 10-20 [facility] Bilirubin, totalOrdered By: Jesus Peters on 10-06-2024 Bilirubin [Mass/Vol] 0.37 mg/dL 0.00-1.30 [facility] Calculated very low density lipoprotein (VLDL) cholesterol measurementOrdered By: Jesus Peters on 10-06-2024 Calculated very low density lipoprotein (VLDL) cholesterol measurement 34 mg/dL 5-40 [facility] Carbon dioxide, total [Moles /volume] in Central venous bloodOrdered By: Jesus Peters on 10-06-2024 CO2 [Moles/Vol] 22.8 mmol/L 21.0-32.0 [facility] Chloride assayOrdered By: Denver Peters on 10-06-2024 Chloride [Moles/Vol] 105 mmol/L 98-108 [facility] Comprehensive Metabolic Prof ilon 10-06-2024 Albumin [Mass/Vol] 4.1 g/dL Normal 3.4-4.8 [facility] Comment on above: Order Comment: Order Date: 10/02/24Order Info: [id number] - CMPOrder Info: [id number] - LIPIDOrder Info: [id number] - C2VFpdbx Info: [id number] - TSHOrder Info: [id number] - T4F Performed By: #### L 100.0100, L500.2500, L501.98696, L501.9520, L506.0400 #### [facility] [address] [place], [address] Albumin/Globulin [Mass ratio] 1.3 {ratio} Normal 0.9-2.4 [facility] Comment on above: Order Comment: Order Date: 10/02/24Order Info: [id number] - CMPOrder Info: [id number] - LIPIDOrder Info: [id number] - L7OHhina Info: [id number] - TSHOrder Info: [id number] - T4F Performed By: #### L 100.0100, L500.2500, L501.20701, L501.9520, L506.0400 #### [facility] [address] [place], [address] ALK PHOS 107 U/L High 35-104 [facility] Comment on above: Order Comment: Order Date: 10/02/24Order Info: [id number] - CMPOrder Info: [id number] - LIPIDOrder Info: 305-0 - Y1HUoqgo Info: [id number] - TSHOrder Info: [id number] - T4F Performed By: #### L 100.0100, L500.2500, L501.97873, L501.9520, L506.0400 #### [facility] [address] [place], [address] ALT [Catalytic activity/Vol] 16 U/L Normal <=34 [facility] Comment on above: Order Comment: Order Date: 10/02/24Order Info: [id number] - CMPOrder Info: [id number] - LIPIDOrder Info: [id number] - O5BDexhi Info: [id number] - TSHOrder Info: [id number] - T4F Performed By: #### L 100.0100, L500.2500, L501.82737, L501.9520, L506.0400 #### [facility] [address] [place], [address] AST [Catalytic activity/Vol] 22 U/L Normal <=31 [facility] Comment on above: Order Comment: Order Date: 10/02/24Order Info: [id number] - CMPOrder Info: [id number] - LIPIDOrder Info: [id number] - O0FPzsng Info: [id number] - TSHOrder Info: [id number] - T4F Performed By: #### L 100.0100, L500.2500, L501.70918, L501.9520, L506.0400 #### [facility] [address] [place], [address] Bilirubin [Mass/Vol] 0.37 mg/dL Normal 0.00-1.30 [facility] Comment on above: Order Comment: Order Date: 10/02/24Order Info: [id number] - CMPOrder Info: [id number] - LIPIDOrder Info: [id number] - H1BCgbrr Info: [id number] - TSHOrder Info: [id number] - T4F Performed By: #### L 100.0100, L500.2500, L501.03601, L501.9520, L506.0400 #### [facility] [address] [place], [address] BUN/CRE 23.2 RATIO High 10-20 [facility] Comment on above: Order Comment: Order Date: 10/02/24Order Info: [id number] - CMPOrder Info: [id number] - LIPIDOrder Info: [id number] - O2WAmdiq Info: [id number] - TSHOrder Info: [id number] - T4F Performed By: #### L 100.0100, L500.2500, L501.46521, L501.9520, L506.0400 #### [facility] [address] [place], [address] Calcium [Mass/Vol] 9.6 mg/dL Normal 7.6-11.0 [facility] Comment on above: Order Comment: Order Date: 10/02/24Order Info: [id number] - CMPOrder Info: [id number] - LIPIDOrder Info: [id number] - M1BPevxy Info: [id number] - TSHOrder Info: [id number] - T4F Performed By: #### L 100.0100, L500.2500, L501.73458, L501.9520, L506.0400 #### [facility] [address] [place], [address] Chloride [Moles/Vol] 105 mmol/L Normal 98-108 [facility] Comment on above: Order Comment: Order Date: 10/02/24Order Info: [id number] - CMPOrder Info: [id number] - LIPIDOrder Info: [id number] - R3ZTrteh Info: [id number] - TSHOrder Info: [id number] - T4F Performed By: #### L 100.0100, L500.2500, L501.69344, L501.9520, L506.0400 #### [facility] [address] [place], [address] CO2 [Moles/Vol] 22.8 mmol/L Normal 21.0-32.0 [facility] Comment on above: Order Comment: Order Date: 10/02/24Order Info: [id number] - CMPOrder Info: [id number] - LIPIDOrder Info: [id number] - U5OBdvmy Info: [id number] - TSHOrder Info: [id number] - T4F Performed By: #### L 100.0100, L500.2500, L501.44974, L501.9520, L506.0400 #### [facility] [address] [place], [address] Creatinine [Mass/Vol] 0.92 mg/dL Normal 0.70-1.20 [facility] Comment on above: Order Comment: Order Date: 10/02/24Order Info: [id number] - CMPOrder Info: [id number] - LIPIDOrder Info: [id number] - P1FUipsg Info: [id number] - TSHOrder Info: 3024-7 - T4F Performed By: #### L 100.0100, L500.2500, L501.04299, L501.9520, L506.0400 #### [facility] [address] [place], [address] GAP 13 Normal 5-15 [facility] Comment on above: Order Comment: Order Date: 10/02/24Order Info: [id number] - CMPOrder Info: [id number] - LIPIDOrder Info: [id number] - R2AWapix Info: [id number] - TSHOrder Info: 3024-7 - T4F Performed By: #### L 100.0100, L500.2500, L501.02748, L501.9520, L506.0400 #### [facility] [address] [place], [address] GFR/1.73 sq M.predicted among non-blacks MDRD (S/P/Bld) [Vol rate/Area] 64 mL/min/{1.73_m2} Normal >60 [facility] Comment on above: Order Comment: Order Date: 10/02/24Order Info: [id number] - CMPOrder Info: [id number] - LIPIDOrder Info: 1-0 - I8TLnrlg Info: [id number] - TSHOrder Info: [id number] - T4F Result Comment: mL/m in/1.73m2 CKD-EPI Creatinine Equation (2020) Performed By: #### L 100.0100, L500.2500, L501.43023, L501.9520, L506.0400 #### [facility] [address] [place], [address] Globulin (S) [Mass/Vol] 3.2 g/dL Normal 2.2-4.2 [facility] Comment on above: Order Comment: Order Date: 10/02/24Order Info: [id number] - CMPOrder Info: [id number] - LIPIDOrder Info: [id number] - D3AUwtlc Info: [id number] - TSHOrder Info: 3024-7 - T4F Performed By: #### L 100.0100, L500.2500, L501.96472, L501.9520, L506.0400 #### [facility] [address] [place], [address] Glucose [Mass/Vol] 93 mg/dL Normal 70-99 [facility] Comment on above: Order Comment: Order Date: 10/02/24Order Info: 86-1 - CMPOrder Info: [id number] - LIPIDOrder Info: [id number] - J0FGdbaw Info: [id number] - TSHOrder Info: [id number] - T4F Performed By: #### L 100.0100, L500.2500, L501.13526, L501.9520, L506.0400 #### [facility] [address] [place], [address] Potassium [Moles/Vol] 4.0 mmol/L Normal 3.3-5.1 [facility] Comment on above: Order Comment: Order Date: 10/02/24Order Info: 86-1 - CMPOrder Info: [id number] - LIPIDOrder Info: [id number] - Z3UDecia Info: [id number] - TSHOrder Info: [id number] - T4F Performed By: #### L 100.0100, L500.2500, L501.76270, L501.9520, L506.0400 #### [facility] [address] [place], [address] Sodium [Moles/Vol] 141 mmol/L Normal 133-145 [facility] Comment on above: Order Comment: Order Date: 10/02/24Order Info: [id number] - CMPOrder Info: [id number] - LIPIDOrder Info: [id number] - A7GBasjq Info: [id number] - TSHOrder Info: [id number] - T4F Performed By: #### L 100.0100, L500.2500, L501.80037, L501.9520, L506.0400 #### [facility] [address] [place], [address] T PROT 7.3 g/dL Normal 5.9-8.4 [facility] Comment on above: Order Comment: Order Date: 10/02/24Order Info: [id number] - CMPOrder Info: [id number] - LIPIDOrder Info: [id number] - T5FKhsqq Info: [id number] - TSHOrder Info: [id number] - T4F Performed By: #### L 100.0100, L500.2500, L501.92204, L501.9520, L506.0400 #### [facility] [address] [place], [address] Urea nitrogen [Mass/Vol] 21 mg/dL High 4-19 [facility] Comment on above: Order Comment: Order Date: 10/02/24Order Info: [id number] - CMPOrder Info: [id number] - LIPIDOrder Info: [id number] - I4XLrkwx Info: [id number] - TSHOrder Info: [id number] - T4F Performed By: #### L 100.0100, L500.2500, L501.72793, L501.9520, L506.0400 #### [facility] [address] [place], [address] Free T3on 10-06-2024 Free T3 [Mass/Vol] 2.9 pg/mL Normal 2.18-3.98 [facility] Comment on above: Order Comment: Order Date: 10/02/24Order Info: [id number] - CMPOrder Info: [id number] - LIPIDOrder Info: [id number] - V1SIxewb Info: [id number] - TSHOrder Info: [id number] - T4F Performed By: #### L 100.0100, L500.2500, L501.84023, L501.9520, L506.0400 #### [facility] [address] [place], [address] Free O3Cgfexqg By: Jesus watts on 10-06-2024 Free T3 [Mass/Vol] 2.9 pg/mL 2.18-3.98 [facility] Glomerular filtration rate ( GFR) estimation/1.73 sq m using serum, plasma, or whole bOrdered By: Jesus Peters on 10-06-2024 GFR/1.73 sq M.predicted among non-blacks MDRD (S/P/Bld) [Vol rate/Area] 64 mL/min/{1.73_m2} >60 [facility] Comment on above: mL/min/1.73m2 CKD-EP I Creatinine Equation (2020) LDL calc ser/plasOrdered By: Jesus Peters on 10-06-2024 Cholesterol in LDL [Mass/Vol] 133 mg/dL [facility] Comment on above: Urcijzisow=504-214 m g/dL & Higher Bejy=031 mg/dL or greaterFriedwald Equation for LDL-C Laboratory - Chemistry and C hemistry - challengeOrdered By: Jesus Peters on 10-06-2024 AST [Catalytic activity/Vol] 22 U/L <32 [facility] Lipid Profileon 10-06-2024 CHOL:HDL 4.45 Normal [facility] Comment on above: Order Comment: Order Date: 10/02/24Order Info: [id number] - CMPOrder Info: [id number] - LIPIDOrder Info: [id number] - T2JXkeah Info: [id number] - TSHOrder Info: [id number] - T4F Performed By: #### L 100.0100, L500.2500, L501.55500, L501.9520, L506.0400 #### [facility] [address] [place], [place], [address] Cholesterol [Mass/Vol] 215 mg/dL High <=200 [facility] Comment on above: Order Comment: Order Date: 10/02/24Order Info: [id number] - CMPOrder Info: [id number] - LIPIDOrder Info: [id number] - B1PKmssq Info: [id number] - TSHOrder Info: [id number] - T4F Result Comment: Chol esterol level, Desirable <200 mg/dL Borderline high cholesterol 200-239 mg/dL High cholesterol >=240 mg/dL Recommendations of the NCEP Adult Treatment Panel for the following risk-cutoff thresholds for the [place] population. Performed By: #### L 100.0100, L500.2500, L501.78136, L501.9520, L506.0400 #### [facility] [address] [place], [address] Cholesterol in HDL [Mass/Vol] 48 mg/dL Normal [facility] Comment on above: Order Comment: Order Date: 10/02/24Order Info: [id number] - CMPOrder Info: [id number] - LIPIDOrder Info: [id number] - K0ZVuivq Info: 3 - TSHOrder Info: [id number] T4F Result Comment: Micki onal Cholesterol Education Program (NCEP) guidelines: <40 mg/dL: Low HDL-cholesterol (major risk factor for CHD) >= 60 mg/dL: High HDL-cholesterol (negative risk factor for CHD) HDL-cholesterol is affected by a number of factors, e.g. smoking, exercise, hormones, sex and age. Performed By: #### L 100.0100, L500.2500, L501.26733, L501.9520, L506.0400 #### [facility] [address] [place], [address] Cholesterol in LDL [Mass/Vol] 133 mg/dL Normal [facility] Comment on above: Order Comment: Order Date: 10/02/24Order Info: [id number] - CMPOrder Info: [id number] - LIPIDOrder Info: [id number] - A7ZJopqx Info: [id number] - TSHOrder Info: [id number] - T4F Result Comment: Bord xyuont=074-992 mg/dL Higher Uxjv=235 mg/dL or greater Friedwald Equation for LDL-C Performed By: #### L 100.0100, L500.2500, L501.34823, L501.9520, L506.0400 #### [facility] [address] [place], [address] Cholesterol in VLDL [Mass/Vol] 34 mg/dL Normal 5-40 [facility] Comment on above: Order Comment: Order Date: 10/02/24Order Info: [id number] - CMPOrder Info: [id number] - LIPIDOrder Info: [id number] - A5IIwzjg Info: [id number] - TSHOrder Info: [id number] - T4F Performed By: #### L 100.0100, L500.2500, L501.47591, L501.9520, L506.0400 #### [facility] [address] [place], [place], [address] Triglyceride [Mass/Vol] 169 mg/dL Normal [facility] Comment on above: Order Comment: Order Date: 10/02/24Order Info: [id number] - CMPOrder Info: [id number] - LIPIDOrder Info: [id number] - X6PVioss Info: [id number] - TSHOrder Info: 7 - T4F Result Comment: The drugs N-Acetylcysteine and Metamizole may falsely depress this assay. Normal range: <150 mg/dL Borderline High: 150-199 mg/dL High: 200-499 mg/dL Very High: >500 mg/dL Performed By: #### L 100.0100, L500.2500, L501.73718, L501.9520, L506.0400 #### [facility] [address] [place], [place], [address] Potassium measurement (mass/ volume)Ordered By: Jesus Peters on 10-06-2024 Potassium (Unsp spec) [Mass/Vol] 4.0 mmol/L 3.3-5.1 [facility] Screening total cholesterol/ high density lipoprotein (HDL) cholesterol ratioOrdered By: Jesus Peters on 10-06-2024 Cholesterol.total/Cho lesterol in HDL [Mass ratio] 4.45 {ratio} [facility] Serum creatinine measurement (mass/volume)Ordered By: Jesus Peters on 10-06-2024 Creatinine [Mass/Vol] 0.92 mg/dL 0.70-1.20 [facility] Serum globulin measurementOr dered By: Jesus Peters on 10-06-2024 Globulin (S) [Mass/Vol] 3.2 g/dL 2.2-4.2 [facility] Serum glucose measurement (m ass/volume)Ordered By: Jesus Peters on 10-06-2024 Glucose [Mass/Vol] 93 mg/dL 70-99 [facility] Serum or plasma alanine owens otransferase (ALT) measurementOrdered By: Jesus Peters on 10-06-2024 ALT [Catalytic activity/Vol] 16 U/L <35 [facility] Serum or plasma albumin iris urement (mass/volume)Ordered By: Jesus Peters on 10-06-2024 Albumin [Mass/Vol] 4.1 g/dL 3.4-4.8 [facility] Serum or plasma albumin/glob ulin mass ratioOrdered By: Jesus Peters on 10-06-2024 Albumin/Globulin [Mass ratio] 1.3 {ratio} 0.9-2.4 [facility] Serum or plasma alkaline delio sphatase measurementOrdered By: Jesus Peters on 10-06-2024 ALP [Catalytic activity/Vol] 107 U/L High 35-104 [facility] Serum or plasma calcium iris urement (mass/volume)Ordered By: Jesus Peters on 10-06-2024 Calcium [Mass/Vol] 9.6 mg/dL 7.6-11.0 [facility] Serum or plasma cholesterol in HDL measurement (mass/volume)Ordered By: Jesus Peters on 10-06-2024 Cholesterol in HDL [Mass/Vol] 48 mg/dL >40 [facility] Comment on above: National Cholesterol Education Program (NCEP) guidelines:<40 mg/dL: Low HDL-cholesterol (major risk factor for CHD)>= 60 mg/dL: High HDL-cholesterol (negative risk factor for CHD)HDL-cholesterol is affected by a number of factors, e.g. smoking, exercise, hormones, sex and age. Serum or plasma cholesterol measurement (mass/volume)Ordered By: Jesus Peters on 10-06-2024 Cholesterol [Mass/Vol] 215 mg/dL High <201 [facility] Comment on above: Cholesterol level, D esirable <200 mg/dLBorderline high cholesterol 200-239 mg/dLHigh cholesterol >=240 mg/dLRecommendations of the NCEP Adult Treatment Panel for the following risk-cutoff thresholds for the [place] population. Serum or plasma urea nitroge n measurement (mass/volume)Ordered By: Jesus Peters on 10-06-2024 Urea nitrogen [Mass/Vol] 21 mg/dL High 4-19 [facility] Sodium levelOrdered By: Jesus Peters on 10-06-2024 Sodium [Moles/Vol] 141 mmol/L 133-145 [facility] T4 Free Directon 10-06-2024 T4 FREE DIRECT 1.40 ng/dL Normal 0.76-1.46 [facility] Comment on above: Order Comment: Order Date: 10/02/24Order Info: [id number] - CMPOrder Info: [id number] - LIPIDOrder Info: [id number] - W6RSqssp Info: [id number] - TSHOrder Info: [id number] - T4F Performed By: #### L 100.0100, L500.2500, L501.68725, L501.9520, L506.0400 #### [facility] [address] [place], [place], [address] T4 freeOrdered By: Jesus watts on 10-06-2024 Free T4 [Mass/Vol] 1.40 ng/dL 0.76-1.46 [facility] TSH DL <= 0.005 mIU/L QnOrde red By: Jesus Peters on 10-06-2024 TSH Qn 0.442 uIU/mL 0.300-4.200 [facility] Thyroid Stim Hormone (TSH)on 10-06-2024 TSH 0.442 uIU/mL Normal 0.300-4.200 [facility] Comment on above: Order Comment: Order Date: 10/02/24Order Info: [id number] - CMPOrder Info: [id number] - LIPIDOrder Info: [id number] - A5BTieeh Info: [id number] - TSHOrder Info: [id number] - T4F Performed By: #### L 100.0100, L500.2500, L501.59832, L501.9520, L506.0400 #### [facility] [address] [place], [address] Total proteinOrdered By: Ramonita Peters on 10-06-2024 Protein [Mass/Vol] 7.3 g/dL 5.9-8.4 [facility] Triglycerides measurementOrd ered By: Jesus Peters on 10-06-2024 Triglyceride [Mass/Vol] 169 mg/dL <199 [facility] Comment on above: The drugs N-Acetylcy steine and Metamizole may falsely depress this assay. Normal range: <150 mg/dLBorderline High: 150-199 mg/dLHigh: 200-499 mg/dLVery High: >500 mg/dL Anion gap in Serum or Plasma Ordered By: Jesus Peters on 06-05-2024 Anion gap [Moles/Vol] 12 mmol/L 07-03 [facility] BUN/creatinine ratioOrdered By: Jesus Peters on 06-05-2024 Urea nitrogen/Creatinine [Mass ratio] 17.5 mg/mg 12-08 [facility] Basic Metabolic Profile (BMP )on 06-05-2024 BUN/CRE 17.5 RATIO Normal 12-08 [facility] Comment on above: Performed By: #### L 100.0100, L500.2500, L501.92648, L501.9520, L506.0400 #### [facility] [address] [place], [address] Calcium [Mass/Vol] 10.0 mg/dL Normal 7.6-11.0 [facility] Comment on above: Performed By: #### L 100.0100, L500.2500, L501.98312, L501.9520, L506.0400 #### [facility] [address] [place], [address] Chloride [Moles/Vol] 103 mmol/L Normal 98-108 [facility] Comment on above: Performed By: #### L 100.0100, L500.2500, L501.51101, L501.9520, L506.0400 #### [facility] [address] [place], [address] CO2 [Moles/Vol] 25.9 mmol/L Normal 21.0-32.0 [facility] Comment on above: Performed By: #### L 100.0100, L500.2500, L501.08603, L501.9520, L506.0400 #### [facility] [address] [place], [address] Creatinine [Mass/Vol] 0.94 mg/dL Normal 0.70-1.20 [facility] Comment on above: Performed By: #### L 100.0100, L500.2500, L501.01041, L501.9520, L506.0400 #### [facility] [address] [place], [address] GAP 12 Normal 5-15 [facility] Comment on above: Performed By: #### L 100.0100, L500.2500, L501.91521, L501.9520, L506.0400 #### [facility] [address] [place], [address] GFR/1.73 sq M.predicted among non-blacks MDRD (S/P/Bld) [Vol rate/Area] 62 mL/min/{1.73_m2} Normal >60 [facility] Comment on above: Result Comment: mL/m in/1.73m2 CKD-EPI Creatinine Equation (2020) Performed By: #### L 100.0100, L500.2500, L501.28065, L501.9520, L506.0400 #### [facility] [address] [place], [address] Glucose [Mass/Vol] 96 mg/dL Normal 70-99 [facility] Comment on above: Performed By: #### L 100.0100, L500.2500, L501.54854, L501.9520, L506.0400 #### [facility] [address] [place], [address] Potassium [Moles/Vol] 4.3 mmol/L Normal 3.3-5.1 [facility] Comment on above: Performed By: #### L 100.0100, L500.2500, L501.54173, L501.9520, L506.0400 #### [facility] [address] [place], [address] Sodium [Moles/Vol] 141 mmol/L Normal 133-145 [facility] Comment on above: Performed By: #### L 100.0100, L500.2500, L501.18110, L501.9520, L506.0400 #### [facility] [address] [place], [address] Urea nitrogen [Mass/Vol] 17 mg/dL Normal 4-19 [facility] Comment on above: Performed By: #### L 100.0100, L500.2500, L501.47859, L501.9520, L506.0400 #### [facility] [address] [place], [address] Calculated very low density lipoprotein (VLDL) cholesterol measurementOrdered By: Jesus Peters on 06-05-2024 VLDL Cholesterol 34 mg/dL 5-40 [facility] Carbon dioxide, total [Moles /volume] in Central venous bloodOrdered By: Jesus Peters on 06-05-2024 CO2 [Moles/Vol] 25.9 mmol/L 21.0-32.0 [facility] Chloride assayOrdered By: Denver Peters on 06-05-2024 Chloride [Moles/Vol] 103 mmol/L 98-108 [facility] Free T3on 06-05-2024 Free T3 [Mass/Vol] 3.0 pg/mL Normal 2.18-3.98 [facility] Comment on above: Performed By: #### L 100.0100, L500.2500, L501.97009, L501.9520, L506.0400 #### [facility] [address] [place], [place], [id number] Free E7Jqyvlmx By: Jesus watts on 06-05-2024 Free Triiodothyronine (T3) pg/dL 3.0 pg/mL 2.18-3.98 [facility] GFR/1.73 sq M.predicted david g non-blacks MDRD (S/P/Bld) [Vol rate/Area]Ordered By: Jesus Peters on 06-05-2024 Estimated GFR (MDRD) Non-Af Amer 62 >60 [facility] Comment on above: mL/min/1.73m2 CKD-EP I Creatinine Equation (2020) LDL calc ser/plasOrdered By: Jesus Peters on 06-05-2024 LDL Cholesterol, Calculated 141 mg/dL [facility] Comment on above: Ldemukatjo=283-967 m g/dL & Higher Jrdv=139 mg/dL or greater Lipid Profileon 06-05-2024 CHOL:HDL 4.68 Normal [facility] Comment on above: Performed By: #### L 100.0100, L500.2500, L501.42227, L501.9520, L506.0400 #### [facility] [address] [place], [place], [id number] [phone] Cholesterol [Mass/Vol] 223 mg/dL High <=200 [facility] Comment on above: Result Comment: Chol esterol level, Desirable <200 mg/dL Borderline high cholesterol 200-239 mg/dL High cholesterol >=240 mg/dL Recommendations of the NCEP Adult Treatment Panel for the following risk-cutoff thresholds for the [place] population. Performed By: #### L 100.0100, L500.2500, L501.61183, L501.9520, L506.0400 #### [facility] [address] [place], [place], [id number] Cholesterol in HDL [Mass/Vol] 48 mg/dL Normal [facility] Comment on above: Result Comment: Micki onal Cholesterol Education Program (NCEP) guidelines: <40 mg/dL: Low HDL-cholesterol (major risk factor for CHD) >= 60 mg/dL: High HDL-cholesterol (negative risk factor for CHD) HDL-cholesterol is affected by a number of factors, e.g. smoking, exercise, hormones, sex and age. Performed By: #### L 100.0100, L500.2500, L501.97696, L501.9520, L506.0400 #### [facility] [address] [place], [address] Cholesterol in LDL [Mass/Vol] 141 mg/dL Normal [facility] Comment on above: Result Comment: Bord fkostn=581-479 mg/dL Higher Ajft=597 mg/dL or greater Performed By: #### L 100.0100, L500.2500, L501.03009, L501.9520, L506.0400 #### [facility] [address] [place], [address] Cholesterol in VLDL [Mass/Vol] 34 mg/dL Normal 5-40 [facility] Comment on above: Performed By: #### L 100.0100, L500.2500, L501.15039, L501.9520, L506.0400 #### [facility] [address] [place], [address] Triglyceride [Mass/Vol] 172 mg/dL Normal [facility] Comment on above: Result Comment: The drugs N-Acetylcysteine and Metamizole may falsely depress this assay. Normal range: <150 mg/dL Borderline High: 150-199 mg/dL High: 200-499 mg/dL Very High: >500 mg/dL Performed By: #### L 100.0100, L500.2500, L501.15039, L501.9520, L506.0400 #### [facility] [address] [place], [address] Potassium (Unsp spec) [Mass/ Vol]Ordered By: Jesus Peters on 06-05-2024 Potassium [Moles/Vol] 4.3 mmol/L 3.3-5.1 [facility] Screening total cholesterol/ high density lipoprotein (HDL) cholesterol ratioOrdered By: Jesus Peters on 06-05-2024 Cholesterol.total/Cho lesterol in HDL [Mass ratio] 4.68 {ratio} [facility] Serum creatinine measurement (mass/volume)Ordered By: Jesus Peters on 06-05-2024 Creatinine [Mass/Vol] 0.94 mg/dL 0.70-1.20 [facility] Serum glucose measurement (m ass/volume)Ordered By: Jesus Peters on 06-05-2024 Glucose [Mass/Vol] 96 mg/dL 70-99 [facility] Serum or plasma calcium iris urement (mass/volume)Ordered By: Jesus Peters on 06-05-2024 Calcium [Mass/Vol] 10.0 mg/dL 7.6-11.0 [facility] Serum or plasma cholesterol in HDL measurement (mass/volume)Ordered By: Jesus Peters on 06-05-2024 Cholesterol in HDL [Mass/Vol] 48 mg/dL >40 [facility] Comment on above: National Cholesterol Education Program (NCEP) guidelines:<40 mg/dL: Low HDL-cholesterol (major risk factor for CHD)>= 60 mg/dL: High HDL-cholesterol (negative risk factor for CHD)HDL-cholesterol is affected by a number of factors, e.g. smoking, exercise, hormones, sex and age. Serum or plasma cholesterol measurement (mass/volume)Ordered By: Jesus Peters on 06-05-2024 Cholesterol [Mass/Vol] 223 mg/dL High <201 [facility] Comment on above: Cholesterol level, D esirable <200 mg/dLBorderline high cholesterol 200-239 mg/dLHigh cholesterol >=240 mg/dLRecommendations of the NCEP Adult Treatment Panel for the following risk-cutoff thresholds for the [place] population. Serum or plasma urea nitroge n measurement (mass/volume)Ordered By: Jesus Peters on 06-05-2024 Urea nitrogen [Mass/Vol] 17 mg/dL 4-19 [facility] Sodium levelOrdered By: Jesus Peters on 06-05-2024 Sodium [Moles/Vol] 141 mmol/L 133-145 [facility] T4 Free Directon 06-05-2024 T4 FREE DIRECT 1.50 ng/dL High 0.76-1.46 [facility] Comment on above: Performed By: #### L 100.0100, L500.2500, L501.90208, L501.9520, L506.0400 #### [facility] [address] [place], [place], [id number] T4 freeOrdered By: Jesus watts on 06-05-2024 Free T4 [Mass/Vol] 1.50 ng/dL High 0.76-1.46 [facility] TSH DL <= 0.005 mIU/L QnOrde red By: Jesus Peters on 06-05-2024 Thyroid Stimulating Hormone (TSH) 0.508 uIU/mL 0.300-4.200 [facility] Thyroid Stim Hormone (TSH)on 06-05-2024 TSH 0.508 uIU/mL Normal 0.300-4.200 [facility] Comment on above: Performed By: #### L 100.0100, L500.2500, L501.12995, L501.9520, L506.0400 #### [facility] [address] [place], [place], [id number] Triglycerides measurementOrd ered By: Jesus Peters on 06-05-2024 Triglyceride [Mass/Vol] 172 mg/dL <199 [facility] Comment on above: The drugs N-Acetylcy steine and Metamizole may falsely depress this assay. Normal range: <150 mg/dLBorderline High: 150-199 mg/dLHigh: 200-499 mg/dLVery High: >500 mg/dL Myoglobin, Serumon 5 Myoglobin, Ser 37 ng/mL Normal 25-58 [facility] Comment on above: Result Comment: Perf ormed at: - [facility] [address] [id number] Automotive Upholsterer: Tre Calloway PhD, Phone: [phone] Performed By: #### L 501.7862, L3442.7803 #### [facility] [address] [place], [place], [id number] CPK Total, Creatine Kinaseon 05-20-2024 CPK TOTAL 109 U/L Normal 24-195 [facility] Comment on above: Performed By: #### L 501.3620, L3600.5100 #### [facility] [address] [place], [address] Serum myoglobin measurementO rdered By: Erwin Wiley on 05-20-2024 Myoglobin [Mass/Vol] 37 ng/mL 25-58 [facility] Comment on above: Performed at: [facility] [id number] [place], [place] [id number] Director: Tre Calloway PhD, Phone: [phone] Serum or plasma creatine kin ase activityOrdered By: Erwin Wiley on 05-20-2024 CK [Catalytic activity/Vol] 109 U/L 24-195 [facility] Angiotensin Convert Enzymeon 04-08-2024 ANGIOT-CONV.ENZ 15 U/L Normal 14-82 [facility] Comment on above: Result Comment: Perf ormed at: [facility] [place] [address] [place], [place] [id number] Automotive Upholsterer: Tre Calloway PhD, Phone: [phone] Performed By: #### L 100.0100, L500.2500, L501.19575, L501.9520, L506.0400 #### [facility] [address] [place], [address] Quantiferon TB-Gold+on 04-08 QFT MITOGEN TATUM > 10.00 Normal . [facility] Comment on above: Performed By: #### L 100.0100, L500.2500, L501.12097, L501.9520, L506.0400 #### [facility] [address] [place], [address] QFT NIL VALUE 0.03 IU/mL Normal . [facility] Comment on above: Performed By: #### L 100.0100, L500.2500, L501.23450, L501.9520, L506.0400 #### [facility] [address] [place], [address] QFT TB GOLD+ Comment Normal . [facility] Comment on above: Result Comment: Myles tiFERON-TB [...] test. Performed By: #### L 100.0100, L500.2500, L501.01761, L501.9520, L506.0400 #### [facility] [address] [place], [address] QFT TB POS CRIT Negative Normal Negative [facility] Comment on above: Result Comment: No r [...] methodology Performed By: #### L 100.0100, L500.2500, L501.33403, L501.9520, L506.0400 #### [facility] [address] [place], [address] QFT TB1+ AG TATUM 0.04 IU/mL Normal . [facility] Comment on above: Performed By: #### L 100.0100, L500.2500, L501.51630, L501.9520, L506.0400 #### [facility] [address] [place], [address] QFT TB2+ AG TATUM 0.03 IU/mL Normal . [facility] Comment on above: Performed By: #### L 100.0100, L500.2500, L501.45792, L501.9520, L506.0400 #### [facility] [address] [place], [place], [address] C-reactive protein measureme nt by high sensitivity methodOrdered By: Erwin Wiley on 04-03-2024 C-Reactive Protein Extended Range 13.70 mg/L High 0.0-3.0 [facility] Comment on above: C-Reactive Protein ( CRP) provides useful information for thediagnosis, therapy and monitoring of inflammatory processesand associated diseases. For the evaluation of Relative Riskfor Cardiovascular Disease, a High Sensitivity CRP (HSCRP)should be ordered. CRPon 04-03-2024 C-REACTIVE PROT 13.70 mg/L High 0.0-3.0 [facility] Comment on above: Result Comment: C-Re active Protein (CRP) provides useful information for the diagnosis, therapy and monitoring of inflammatory processes and associated diseases. For the evaluation of Relative Risk for Cardiovascular Disease, a High Sensitivity CRP (HSCRP) should be ordered. Performed By: #### L 100.0100, L500.2500, L501.66428, L501.9520, L506.0400 #### [facility] [address] [place], [address] Erythrocyte Sed Rateon 04-03 SED RATE 53 mm/hr High 0-30 [facility] Comment on above: Performed By: #### L 100.0100, L500.2500, L501.95824, L501.9520, L506.0400 #### [facility] [address] [place], [address] Erythrocyte sedimentation ra teOrdered By: Erwin Wiley on 04-03-2024 ESR (Bld) [Velocity] 53 mm/h High 0-30 [facility] M. tuberculosis tuberculin s yuan IFN-g Ql (Bld)Ordered By: Erwin Wiley on 04-03-2024 TB Test (QFT) Antigen 1 0.04 IU/mL . [facility] Quantiferon-TB Gold Plus rafael tOrdered By: Erwin Wiley on 04-03-2024 TB Test (QFT) Comment . [facility] Comment on above: QuantiFERON-TB Gold Plus is [...] (QFT) Antigen 2 0.03 IU/mL . [facility] TB Test (QFT) Mitogen > 10.00 IU/mL . [facility] TB Test (QFT) Nil 0.03 IU/mL . [facility] TB Test (QFT) Positive Criteria Negative Negative [facility] Comment on above: No response to M [...] enzyme [Catalytic activity/Vol] 15 U/L 14-82 [facility] Comment on above: Performed at: [address] [id number] Director: Tre Calloway PhD, Phone: [phone] Basic Metabolic Profile (BMP )on 03-20-2024 BUN/CRE 19.0 RATIO Normal 10-20 [facility] Comment on above: Order Comment: Order Date: 01/10/24Order Info: 3016-3 - TSH Performed By: #### L 100.0100, L500.2500, L501.50019, L501.9520, L506.0400 #### [facility] [address] [place], [address] CA,Total 9.7 mg/dL Normal 8.5-10.1 [facility] Comment on above: Order Comment: Order Date: 01/10/24Order Info: 3016-3 - TSH Performed By: #### L 100.0100, L500.2500, L501.34965, L501.9520, L506.0400 #### [facility] [address] [place], [address] Chloride [Moles/Vol] 105 mmol/L Normal 98-107 [facility] Comment on above: Order Comment: Order Date: 01/10/24Order Info: 3015-3 - TSH Performed By: #### L 100.0100, L500.2500, L501.12821, L501.9520, L506.0400 #### [facility] [address] [place], [address] CO2 [Moles/Vol] 25.0 mmol/L Normal 21.0-32.0 [facility] Comment on above: Order Comment: Order Date: 01/10/24Order Info: 301-3 - TSH Performed By: #### L 100.0100, L500.2500, L501.46740, L501.9520, L506.0400 #### [facility] [address] [place], [address] Creatinine [Mass/Vol] 0.89 mg/dL Normal 0.55-1.02 [facility] Comment on above: Order Comment: Order Date: 01/10/24Order Info: 3015-3 - TSH Result Comment: The validity of the calculated GFR GFRAA in patients over 70 years has not been determined. Clinical correlation is essential. Performed By: #### L 100.0100, L500.2500, L501.45060, L501.9520, L506.0400 #### [facility] [address] [place], [address] EST GFR - AA 78 mL/min Normal >60 [facility] Comment on above: Order Comment: Order Date: 01/10/24Order Info: 3015-3 - TSH Result Comment: Afri can Gabonese GFR Calc Performed By: #### L 100.0100, L500.2500, L501.21899, L501.9520, L506.0400 #### [facility] [address] [place], [address] GAP 8 Normal 5-15 [facility] Comment on above: Order Comment: Order Date: 01/10/24Order Info: 3015-3 - TSH Performed By: #### L 100.0100, L500.2500, L501.52330, L501.9520, L506.0400 #### [facility] [address] [place], [address] GFR/1.73 sq M.predicted among non-blacks MDRD (S/P/Bld) [Vol rate/Area] 65 mL/min/{1.73_m2} Normal >60 [facility] Comment on above: Order Comment: Order Date: 01/10/24Order Info: 3015-3 - TSH Result Comment: Non- GFR Calc Performed By: #### L 100.0100, L500.2500, L501.25514, L501.9520, L506.0400 #### [facility] [address] [place], [address] Glucose [Mass/Vol] 85 mg/dL Normal 74-106 [facility] Comment on above: Order Comment: Order Date: 01/10/24Order Info: 3015-3 - TSH Performed By: #### L 100.0100, L500.2500, L501.17255, L501.9520, L506.0400 #### [facility] [address] [place], [address] Potassium [Moles/Vol] 4.1 mmol/L Normal 3.5-5.1 [facility] Comment on above: Order Comment: Order Date: 01/10/24Order Info: 3016-3 - TSH Performed By: #### L 100.0100, L500.2500, L501.67388, L501.9520, L506.0400 #### [facility] [address] [place], [address] Sodium [Moles/Vol] 138 mmol/L Normal 136-145 [facility] Comment on above: Order Comment: Order Date: 01/10/24Order Info: 3016-3 - TSH Performed By: #### L 100.0100, L500.2500, L501.72497, L501.9520, L506.0400 #### [facility] [address] [place], [address] Urea nitrogen [Mass/Vol] 17 mg/dL Normal 7-18 [facility] Comment on above: Order Comment: Order Date: 01/10/24Order Info: 3016-3 - TSH Performed By: #### L 100.0100, L500.2500, L501.40233, L501.9520, L506.0400 #### [facility] [address] [place], [address] Blood urea nitrogen (BUN)/cr eatinine ratioOrdered By: Jesus Peters on 03-20-2024 Urea nitrogen/Creatinine [Mass ratio] 19.0 mg/mg 10-20 [facility] Carbon dioxide measurementOr dered By: Jesus Peters on 03-20-2024 CO2 [Moles/Vol] 25.0 mmol/L 21.0-32.0 [facility] Chloride measurementOrdered By: Jesus Peters on 03-20-2024 Chloride [Moles/Vol] 105 mmol/L 98-107 [facility] Direct serum free thyroxine (FT4) measurementOrdered By: Jesus Peters on 03-20-2024 Free T4 [Mass/Vol] 1.55 ng/dL High 0.76-1.46 [facility] Erythrocyte Sed Rateon 03-20 SED RATE 24 mm/hr Normal 0-30 [facility] Comment on above: Performed By: #### L 100.0100, L500.2500, L501.60008, L501.9520, L506.0400 #### [facility] [address] [place], [place], [address] Erythrocyte sedimentation ra teOrdered By: Jesus Peters on 03-20-2024 ESR (Bld) [Velocity] 24 mm/h 0-30 [facility] Estimated glomerular filtrat ion rate (GFR) AmericanOrdered By: Jesus Peters on 03-20-2024 Estimated GFR (MDRD) Amer 78 mL/min >60 [facility] Comment on above: GFR Calc Free T3on 03-20-2024 Free T3 [Mass/Vol] 2.5 pg/mL Normal 2.18-3.98 [facility] Comment on above: Order Comment: Order Date: 01/10/24Order Info: 3016-3 - TSH Performed By: #### L 100.0100, L500.2500, L501.87260, L501.9520, L506.0400 #### [facility] [address] [place], [place], [address] Free E8Zqreoit By: Jesus watts on 03-20-2024 Free Triiodothyronine (T3) pg/dL 2.5 pg/mL 2.18-3.98 [facility] Glomerular filtration rate ( GFR) estimationOrdered By: Jesus Peters on 03-20-2024 Estimated GFR (MDRD) Non-Af Amer 65 mL/min >60 [facility] Comment on above: Non- GFR Calc Glucose measurementOrdered B y: Jesus Peters on 03-20-2024 Glucose [Mass/Vol] 85 mg/dL 74-106 [facility] Potassium measurementOrdered By: Jesus Peters on 03-20-2024 Potassium [Moles/Vol] 4.1 mmol/L 3.5-5.1 [facility] Serum anion gap measurementO rdered By: Jesus Peters on 03-20-2024 Anion gap [Moles/Vol] 8 mmol/L 5-15 [facility] Serum or plasma calcium iris urement (mass/volume)Ordered By: Jesus Peters on 03-20-2024 Calcium [Mass/Vol] 9.7 mg/dL 8.5-10.1 [facility] Serum or plasma creatinine m easurement (mass/volume)Ordered By: Jesus Peters on 03-20-2024 Creatinine [Mass/Vol] 0.89 mg/dL 0.55-1.02 [facility] Comment on above: The validity of the calculated GFR & GFRAA in patients over 70 years has not been determined. Clinical correlation is essential. Serum or plasma urea nitroge n measurement (mass/volume)Ordered By: Jesus Peters on 03-20-2024 Urea nitrogen [Mass/Vol] 17 mg/dL 7-18 [facility] Sodium levelOrdered By: Jesus Peters on 03-20-2024 Sodium [Moles/Vol] 138 mmol/L 136-145 [facility] T4 Free Directon 03-20-2024 T4 FREE DIRECT 1.55 ng/dL High 0.76-1.46 [facility] Comment on above: Order Comment: Order Date: 01/10/24Order Info: 3016-3 - TSH Performed By: #### L 100.0100, L500.2500, L501.37416, L501.9520, L506.0400 #### [facility] [address] [place], [place], [address] TSH QnOrdered By: Jesus vaughan on 03-20-2024 Thyroid Stimulating Hormone (TSH) 0.145 uIU/mL Low 0.358-3.740 [facility] Thyroid Stim Hormone (TSH)on 03-20-2024 TSH 0.145 uIU/mL Low 0.358-3.740 [facility] Comment on above: Order Comment: Order Date: 01/10/24 Order Info: 3016-3 - TSH Performed By: #### L 501.9520 #### [facility] [address] [place], [address] Dayanara 03-11-2024 [facility] Telephone (GENSWS) ----- MADDISON RIVERA ([id number]) 1945 F Date Time Provider Department 03/11/24 KAMILA MERCADO [employer] During your visit today, we recorded the [...] - Other: See Comments Comments: PH SYCOTIC [id number] REDUCTASE INHIBIT*05/06/2021 14 - Other: See Comments [...] Encounter Status:Closed by KAMILA MERCADO on 03/11/24 [facility] Telephone (CTI) ----- MADDIOSN RIVERA ([id number]) 1945 F Date Time Provider Department 03/11/24 LONNIE BARBA CTI During your visit today, we recorded the following information about you: Brandi Carbajal 03/11/2024 4:40 PM Signed Patient is requesting disc and reports of 03/04/24 CT chest and 11/25/24 CT chest. 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 OK to leave a detailed VM on cell phone [phone]. 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 [facility] Pt knows Allergies As of Date: [...] - Other: See Comments Comments: PH SYCOTIC [id number] REDUCTASE INHIBIT*05/06/2021 14 - Other: See Comments [...] Status:Closed by BRANDI CARBAJAL on 05/08/24 Normal [facility] CT CHEST WO IVCONon 03-04-19 CT CHEST WO IVCON * * *Final Report* * * DATE OF EXAM: Mar 04 2024 8:21AM [facility] 0541 - CT CHEST WO IVCON [...] be communicated with the ordering provider via [employer] staff message or phone message by [employer] within 2 business days of report finalization. --END OF FINDING-- Formula Mixer: BILL Transcribe Date/Time: Mar 06 2024 10:32A Dictated by : KAYDEN AKERS MD This examination was interpreted and the report reviewed and electronically signed by: KAYDEN AKERS MD on Mar 06 2024 10:44AM EST [id number] ACTIONABLE Invalid Interpretation Code [facility] Basic Metabolic Profile (BMP )on 01-10-2024 BUN/CRE 22.3 RATIO High - [facility] Comment on above: Performed By: #### L 100.0100, L500.2500, L501.68001, L501.9520, L506.0400 #### [facility] [address] [place], [address] CA,Total 9.8 mg/dL Normal 8.5-10.1 [facility] Comment on above: Performed By: #### L 100.0100, L500.2500, L501.24541, L501.9520, L506.0400 #### [facility] [address] [place], [address] Chloride [Moles/Vol] 105 mmol/L Normal 98-107 [facility] Comment on above: Performed By: #### L 100.0100, L500.2500, L501.40529, L501.9520, L506.0400 #### [facility] [address] [place], [address] CO2 [Moles/Vol] 25.0 mmol/L Normal 21.0-32.0 [facility] Comment on above: Performed By: #### L 100.0100, L500.2500, L501.09754, L501.9520, L506.0400 #### [facility] [address] [place], [address] Creatinine [Mass/Vol] 1.12 mg/dL High 0.55-1.02 [facility] Comment on above: Result Comment: The validity of the calculated GFR GFRAA in patients over 70 years has not been determined. Clinical correlation is essential. Performed By: #### L 100.0100, L500.2500, L501.97620, L501.9520, L506.0400 #### [facility] [address] [place], [address] EST GFR - AA 61 mL/min Normal >60 [facility] Comment on above: Result Comment: Afri can Gabonese GFR Calc Performed By: #### L 100.0100, L500.2500, L501.04966, L501.9520, L506.0400 #### [facility] [address] [place], [address] GAP 6 Normal 5-15 [facility] Comment on above: Performed By: #### L 100.0100, L500.2500, L501.23309, L501.9520, L506.0400 #### [facility] [address] [place], [address] GFR/1.73 sq M.predicted among non-blacks MDRD (S/P/Bld) [Vol rate/Area] 50 mL/min/{1.73_m2} Low >60 [facility] Comment on above: Result Comment: Non- GFR Calc Performed By: #### L 100.0100, L500.2500, L501.78607, L501.9520, L506.0400 #### [facility] [address] [place], [address] Glucose [Mass/Vol] 91 mg/dL Normal 74-106 [facility] Comment on above: Performed By: #### L 100.0100, L500.2500, L501.93517, L501.9520, L506.0400 #### [facility] [address] [place], [address] Potassium [Moles/Vol] 4.1 mmol/L Normal 3.5-5.1 [facility] Comment on above: Performed By: #### L 100.0100, L500.2500, L501.62055, L501.9520, L506.0400 #### [facility] [address] [place], [address] Sodium [Moles/Vol] 136 mmol/L Normal 136-145 [facility] Comment on above: Performed By: #### L 100.0100, L500.2500, L501.02990, L501.9520, L506.0400 #### [facility] [address] [place], [address] Urea nitrogen [Mass/Vol] 25 mg/dL High 7-18 [facility] Comment on above: Performed By: #### L 100.0100, L500.2500, L501.54469, L501.9520, L506.0400 #### [facility] [address] [place], [address] CBC W/Diff, Automatedon 11-2 1-2024 Absolute Lymph 2.18 X10 3/uL Normal 0.83-4.51 [facility] Comment on above: Performed By: #### L 100.0100, L500.2500, L501.53345, L501.9520, L506.0400 #### [facility] [address] [place], [address] Absolute Neut 7.2 X10 3/uL Normal 2.0-7.7 [facility] Comment on above: Performed By: #### L 100.0100, L500.2500, L501.30561, L501.9520, L506.0400 #### [facility] [address] [place], [address] Basophils/100 WBC (Bld) 1.0 % Normal 0-1 [facility] Comment on above: Performed By: #### L 100.0100, L500.2500, L501.94538, L501.9520, L506.0400 #### [facility] [address] [place], [address] Eosinophils/100 WBC (Bld) 3.9 % Normal 0-5 [facility] Comment on above: Performed By: #### L 100.0100, L500.2500, L501.18330, L501.9520, L506.0400 #### [facility] [address] [place], [address] Erythrocyte distribution width (RBC) [Ratio] 13.7 % Normal 11.6-14.6 [facility] Comment on above: Performed By: #### L 100.0100, L500.2500, L501.09056, L501.9520, L506.0400 #### [facility] [address] [place], [address] Hematocrit (Bld) [Volume fraction] 46.7 % Normal 37-47 [facility] Comment on above: Performed By: #### L 100.0100, L500.2500, L501.17301, L501.9520, L506.0400 #### [facility] [address] [place], [address] Hemoglobin (Bld) [Mass/Vol] 14.7 g/dL Normal 12.0-15.0 [facility] Comment on above: Performed By: #### L 100.0100, L500.2500, L501.46080, L501.9520, L506.0400 #### [facility] [address] [place], [address] IG% 0.900 Normal 0.0-0.9 [facility] Comment on above: Result Comment: IG% - Immature Granulocytes (promyelocytes, myelocytes and metamyelocytes) > 1% indicates that a LEFT SHIFT is Present. Performed By: #### L 100.0100, L500.2500, L501.10859, L501.9520, L506.0400 #### [facility] [address] [place], [address] Lymphocytes/100 WBC (Bld) 20.0 % Normal 19-41 [facility] Comment on above: Performed By: #### L 100.0100, L500.2500, L501.26289, L501.9520, L506.0400 #### [facility] [address] [place], [address] MCH (RBC) [Entitic mass] 29.2 pg Normal 27.0-32.0 [facility] Comment on above: Performed By: #### L 100.0100, L500.2500, L501.27027, L501.9520, L506.0400 #### [facility] [address] [place], [address] MCHC (RBC) [Mass/Vol] 31.5 g/dL Low 32-36 [facility] Comment on above: Performed By: #### L 100.0100, L500.2500, L501.19910, L501.9520, L506.0400 #### [facility] [address] [place], [address] MCV (RBC) [Entitic vol] 92.7 fL Normal 81-99 [facility] Comment on above: Performed By: #### L 100.0100, L500.2500, L501.93326, L501.9520, L506.0400 #### [facility] [address] [place], [address] Monocytes/100 WBC (Bld) 8.2 % Normal 0-10 [facility] Comment on above: Performed By: #### L 100.0100, L500.2500, L501.59798, L501.9520, L506.0400 #### [facility] [address] [place], [address] Neutrophils/100 WBC (Bld) 66.0 % Normal 47-70 [facility] Comment on above: Performed By: #### L 100.0100, L500.2500, L501.51928, L501.9520, L506.0400 #### [facility] [address] [place], [address] Nucleated RBC (Bld) [#/Vol] 0 10*3/uL Normal 0-5 [facility] Comment on above: Performed By: #### L 100.0100, L500.2500, L501.06182, L501.9520, L506.0400 #### [facility] [address] [place], [address] Platelet mean volume (Bld) [Entitic vol] 12.4 fL High 6.2-12.0 [facility] Comment on above: Performed By: #### L 100.0100, L500.2500, L501.21489, L501.9520, L506.0400 #### [facility] [address] [place], [address] Platelets (Bld) [#/Vol] 297 10*3/uL Normal 150-450 [facility] Comment on above: Performed By: #### L 100.0100, L500.2500, L501.24851, L501.9520, L506.0400 #### [facility] [address] [place], [address] RBC (Bld) [#/Vol] 5.04 10*6/uL Normal 4.2-5.4 [facility] Comment on above: Performed By: #### L 100.0100, L500.2500, L501.52481, L501.9520, L506.0400 #### [facility] [address] [place], [address] RDW SD 46.5 fl High 35.1-43.9 [facility] Comment on above: Performed By: #### L 100.0100, L500.2500, L501.64088, L501.9520, L506.0400 #### [facility] [address] [place], [address] WBC (Bld) [#/Vol] 10.9 10*3/uL Normal 4.4-11.0 [facility] Comment on above: Performed By: #### L 100.0100, L500.2500, L501.91371, L501.9520, L506.0400 #### [facility] [address] [place], [address] Free T3on 01-10-2024 Free T3 [Mass/Vol] 2.0 pg/mL Low 2.18-3.98 [facility] Comment on above: Performed By: #### L 100.0100, L500.2500, L501.86965, L501.9520, L506.0400 #### [facility] [address] [place], [address] T4 Free Directon 01-10-2024 T4 FREE DIRECT 1.30 ng/dL Normal 0.76-1.46 [facility] Comment on above: Performed By: #### L 100.0100, L500.2500, L501.18816, L501.9520, L506.0400 #### [facility] [address] [place], [address] Thyroid Stim Hormone (TSH)on 01-10-2024 TSH 2.910 uIU/mL Normal 0.358-3.740 [facility] Comment on above: Performed By: #### L 100.0100, L500.2500, L501.92106, L501.9520, L506.0400 #### [facility] [address] [place], [address] Basic Metabolic Profile (BMP )on 12-28-2023 BUN/CRE 25.1 RATIO High 10-20 [facility] Comment on above: Order Comment: Order Date: 12/26/23Order Info: 0667-1 - BMP Performed By: #### L 100.0100, L500.2500, L501.45878, L501.9520, L506.0400 #### [facility] [address] [place], [address] CA,Total 9.6 mg/dL Normal 8.5-10.1 [facility] Comment on above: Order Comment: Order Date: 12/26/23Order Info: 0667-1 - BMP Performed By: #### L 100.0100, L500.2500, L501.69673, L501.9520, L506.0400 #### [facility] [address] [place], [address] Chloride [Moles/Vol] 107 mmol/L Normal 98-107 [facility] Comment on above: Order Comment: Order Date: 12/26/23Order Info: 0667- - BMP Performed By: #### L 100.0100, L500.2500, L501.15073, L501.9520, L506.0400 #### [facility] [address] [place], [address] CO2 [Moles/Vol] 26.0 mmol/L Normal 21.0-32.0 [facility] Comment on above: Order Comment: Order Date: 12/26/23Order Info: 666-02 - BMP Performed By: #### L 100.0100, L500.2500, L501.95218, L501.9520, L506.0400 #### [facility] [address] [place], [address] Creatinine [Mass/Vol] 0.96 mg/dL Normal 0.55-1.02 [facility] Comment on above: Order Comment: Order Date: 12/26/23Order Info: 06 - BMP Result Comment: The validity of the calculated GFR GFRAA in patients over 70 years has not been determined. Clinical correlation is essential. Performed By: #### L 100.0100, L500.2500, L501.12522, L501.9520, L506.0400 #### [facility] [address] [place], [address] EST GFR - AA 73 mL/min Normal >60 [facility] Comment on above: Order Comment: Order Date: 12/26/23Order Info: 06- - BMP Result Comment: Afri can Gabonese GFR Calc Performed By: #### L 100.0100, L500.2500, L501.27121, L501.9520, L506.0400 #### [facility] [address] [place], [address] GAP 6 Normal 5-15 [facility] Comment on above: Order Comment: Order Date: 12/26/23Order Info: 0667 - BMP Performed By: #### L 100.0100, L500.2500, L501.74821, L501.9520, L506.0400 #### [facility] [address] [place], [address] GFR/1.73 sq M.predicted among non-blacks MDRD (S/P/Bld) [Vol rate/Area] 60 mL/min/{1.73_m2} Normal >60 [facility] Comment on above: Order Comment: Order Date: 12/26/23Order Info: 0667- - BMP Result Comment: Non- GFR Calc Performed By: #### L 100.0100, L500.2500, L501.58837, L501.9520, L506.0400 #### [facility] [address] [place], [address] Glucose [Mass/Vol] 96 mg/dL Normal 74-106 [facility] Comment on above: Order Comment: Order Date: 12/26/23Order Info: 0667 - BMP Performed By: #### L 100.0100, L500.2500, L501.86877, L501.9520, L506.0400 #### [facility] [address] [place], [address] Potassium [Moles/Vol] 4.2 mmol/L Normal 3.5-5.1 [facility] Comment on above: Order Comment: Order Date: 12/26/23Order Info: 0667- - BMP Performed By: #### L 100.0100, L500.2500, L501.92749, L501.9520, L506.0400 #### [facility] [address] [place], [address] Sodium [Moles/Vol] 138 mmol/L Normal 136-145 [facility] Comment on above: Order Comment: Order Date: 12/26/23Order Info: 0667- - BMP Performed By: #### L 100.0100, L500.2500, L501.34388, L501.9520, L506.0400 #### [facility] [address] [place], [address] Urea nitrogen [Mass/Vol] 24 mg/dL High 7-18 [facility] Comment on above: Order Comment: Order Date: 12/26/23Order Info: 0667-1 - BMP Performed By: #### L 100.0100, L500.2500, L501.36619, L501.9520, L506.0400 #### [facility] [address] [place], [address] CBC W/Diff, Automatedon 11-0 8-2023 Absolute Lymph 2.11 X10 3/uL Normal 0.83-4.51 [facility] Comment on above: Order Comment: Order Date: 12/26/23 Order Info: 0184-1 - CBCD Performed By: #### L 100.0100 #### [facility] [address] [place], [address] Absolute Neut 6.1 X10 3/uL Normal 2.0-7.7 [facility] Comment on above: Order Comment: Order Date: 12/26/23 Order Info: 0184-1 - CBCD Performed By: #### L 100.0100 #### [facility] [address] [place], [address] Basophils/100 WBC (Bld) 0.9 % Normal 0-1 [facility] Comment on above: Order Comment: Order Date: 12/26/23 Order Info: 0184-1 - CBCD Performed By: #### L 100.0100 #### [facility] [address] [place], [address] Eosinophils/100 WBC (Bld) 4.6 % Normal 0-5 [facility] Comment on above: Order Comment: Order Date: 12/26/23 Order Info: 0184-1 - CBCD Performed By: #### L 100.0100 #### [facility] [address] [place], [address] Erythrocyte distribution width (RBC) [Ratio] 13.6 % Normal 11.6-14.6 [facility] Comment on above: Order Comment: Order Date: 12/26/23 Order Info: 0184-1 - CBCD Performed By: #### L 100.0100 #### [facility] [address] [place], [address] Hematocrit (Bld) [Volume fraction] 42.4 % Normal 37-47 [facility] Comment on above: Order Comment: Order Date: 12/26/23 Order Info: 018- - CBCD Performed By: #### L 100.0100 #### [facility] [address] [place], [address] Hemoglobin (Bld) [Mass/Vol] 13.3 g/dL Normal 12.0-15.0 [facility] Comment on above: Order Comment: Order Date: 12/26/23 Order Info: 0184- - CBCD Performed By: #### L 100.0100 #### [facility] [address] [place], [address] IG% 1.000 High 0.0-0.9 [facility] Comment on above: Order Comment: Order Date: 12/26/23 Order Info: 0184- - CBCD Result Comment: IG% - Immature Granulocytes (promyelocytes, myelocytes and metamyelocytes) > 1% indicates that a LEFT SHIFT is Present. Performed By: #### L 100.0100 #### [facility] [address] [place], [address] Lymphocytes/100 WBC (Bld) 22.0 % Normal 19-41 [facility] Comment on above: Order Comment: Order Date: 12/26/23 Order Info: 0184-1 - CBCD Performed By: #### L 100.0100 #### [facility] [address] [place], [address] MCH (RBC) [Entitic mass] 29.3 pg Normal 27.0-32.0 [facility] Comment on above: Order Comment: Order Date: 12/26/23 Order Info: 0184-1 - CBCD Performed By: #### L 100.0100 #### [facility] [address] [place], [address] MCHC (RBC) [Mass/Vol] 31.4 g/dL Low 32-36 [facility] Comment on above: Order Comment: Order Date: 12/26/23 Order Info: 0184-1 - CBCD Performed By: #### L 100.0100 #### [facility] [address] [place], [address] MCV (RBC) [Entitic vol] 93.4 fL Normal 81-99 [facility] Comment on above: Order Comment: Order Date: 12/26/23 Order Info: 0184-1 - CBCD Performed By: #### L 100.0100 #### [facility] [address] [place], [address] Monocytes/100 WBC (Bld) 7.5 % Normal 0-10 [facility] Comment on above: Order Comment: Order Date: 12/26/23 Order Info: 0184-1 - CBCD Performed By: #### L 100.0100 #### [facility] [address] [place], [address] Neutrophils/100 WBC (Bld) 64.0 % Normal 47-70 [facility] Comment on above: Order Comment: Order Date: 12/26/23 Order Info: 0184-1 - CBCD Performed By: #### L 100.0100 #### [facility] [address] [place], [address] Nucleated RBC (Bld) [#/Vol] 0 10*3/uL Normal 0-5 [facility] Comment on above: Order Comment: Order Date: 12/26/23 Order Info: 0184-1 - CBCD Performed By: #### L 100.0100 #### [facility] [address] [place], [address] Platelet mean volume (Bld) [Entitic vol] 12.6 fL High 6.2-12.0 [facility] Comment on above: Order Comment: Order Date: 12/26/23 Order Info: 4-1 - CBCD Performed By: #### L 100.0100 #### [facility] [address] [place], [address] Platelets (Bld) [#/Vol] 263 10*3/uL Normal 150-450 [facility] Comment on above: Order Comment: Order Date: 12/26/23 Order Info: 4-1 - CBCD Performed By: #### L 100.0100 #### [facility] [address] [place], [address] RBC (Bld) [#/Vol] 4.54 10*6/uL Normal 4.2-5.4 [facility] Comment on above: Order Comment: Order Date: 12/26/23 Order Info: 0184-1 - CBCD Performed By: #### L 100.0100 #### [facility] [address] [place], [address] RDW SD 46.2 fl High 35.1-43.9 [facility] Comment on above: Order Comment: Order Date: 12/26/23 Order Info: 0184-1 - CBCD Performed By: #### L 100.0100 #### [facility] [address] [place], [address] WBC (Bld) [#/Vol] 9.6 10*3/uL Normal 4.4-11.0 [facility] Comment on above: Order Comment: Order Date: 12/26/23 Order Info: 0184-1 - CBCD Performed By: #### L 100.0100 #### [facility] [address] [place], [address] CNOVon 12-03-2023 CNOV Office Visit (GENSWS ) ----- MADDISON RIVERA ([id number]) 1945 F Date Time Provider Department 12/03/23 [...] Macrocrystalline], Mobic [Meloxicam], Morphine, Nitrofurantoin, Penicillins, Prednisone, Lstpiyp-Jkp-Pbw Reductase Inhibitors, Sulfa (Sulfonamide Antibiotics), Zinc, and [...] for pa (more content not included)... Normal [facility] CT CHEST WO IVCONon 11-26-[address] CHEST WO IVCON * * *Final Report* * * DATE OF EXAM: Nov 26 2023 8:32AM [facility] 0541 - CT CHEST WO IVCON [...] initial exam) is recommended. --END OF FINDING-- Formula Mixer: BILL Transcribe Date/Time: Nov 29 2023 1:14P Dictated by : JACKIE KNOX MD This examination was interpreted and the report reviewed and electronically signed by: JACKIE KNOX MD on Nov 29 2023 1:52PM EST [id number] ACTIONABLE Invalid Interpretation Code [facility] CNOVon 11-12-2023 CNOV Office Visit (ÁNGELAS ) ----- MADDISON RIVERA ([id number]) 1945 F Date Time Provider Department 11/12/23 [...] she was seen by plastic surgery at [facility]. Recommendations were made for pain management [...] CHOLECYSTECTOMY [facility]olecyst[facility] (more content not included)... [facility] percentageOrdered B y: Jesus Peters on 05-21-2023 Chloride [Moles/Vol] 105 mmol/L 98-107 [facility] Cholesterol [Mass/Vol] 250 mg/dL <200 [facility] Comment on above: <200 mg/dL Desirable 200-240 mg/dL Borderline >240 mg/dL High Risk Glucose [Mass/Vol] 98 mg/dL 74-106 [facility] Potassium [Moles/Vol] 4.1 mmol/L 3.5-5.1 [facility] Sodium [Moles/Vol] 139 mmol/L 136-145 [facility] Triglyceride [Mass/Vol] 225 mg/dL <199 [facility] Comment on above: The drugs N-Acetylcy steine and Metamizole may falsely depress this assay.Serum Triglycerides Reference Interval Normal <150 mg/dL Borderline high 150 - 199 mg/dL High 200 - 499 mg/dL Very High > or = 500 mg/dL Laboratory - Chemistry and C hemistry - challengeOrdered By: Jesus Peters on 05-21-2023 Cholesterol in HDL [Mass/Vol] 45 mg/dL >40 [facility] Comment on above: The drugs N-Acetylcy steine and Metamizole may falsely depress this assay. Reference Range HDL <40 mg/dL Low HDL Cholesterol HDL >or= 60 mg/dL High HDL Cholesterol Cholesterol in LDL [Mass/Vol] 160 mg/dL 0-130 [facility] CO2 [Moles/Vol] 29.0 mmol/L 21.0-32.0 [facility] Urea nitrogen/Creatinine [Mass ratio] 24.1 mg/mg 10-20 [facility] No Panel InformationOrdered By: Jesus Peters on 05-21-2023 Estimated GFR (MDRD) Amer 81 mL/min >60 [facility] Comment on above: GFR Calc Estimated GFR (MDRD) Non-Af Amer 67 mL/min >60 [facility] Comment on above: Non- GFR Calc Vitamin D 25-Hydroxy 42.6 ng/mL [facility] Comment on above: Vitamin D 25(OH) Sta tus Range Deficiency <20 ng/mL (50nmol/L) Insufficiency 20 - 30 ng/mL (50 - 75 nmol/L) Sufficiency 30 - 100 ng/mL (75 - 250 nmol/L) Toxicity >100 ng/mL (>250 nmol/L) VLDL Cholesterol 45 mg/dL 5-40 [facility] Serum or plasma calcium iris urement (mass/volume)Ordered By: Jesus Peters on 05-21-2023 Calcium [Mass/Vol] 9.3 mg/dL 8.5-10.1 [facility] Serum or plasma creatinine m easurement (mass/volume)Ordered By: Jesus Peters on 05-21-2023 Creatinine [Mass/Vol] 0.87 mg/dL 0.55-1.02 [facility] Comment on above: The validity of the calculated GFR & GFRAA in patients over 70 years has not been determined. Clinical correlation is essential. Serum or plasma thyroid stim ulating hormone (TSH) measurement (units/volume)Ordered By: Jesus Peters on 05-21-2023 TSH Qn 1.65 uIU/mL 0.358-3.74 [facility] Serum or plasma urea nitroge n measurement (mass/volume)Ordered By: Jesus Peters on 05-21-2023 Urea nitrogen [Mass/Vol] 21 mg/dL 7-18 [facility] Thin prep Papanicolaou smear with manual screeningOrdered By: Jesus Peters on 05-21-2023 Thin prep Papanicolaou smear with manual screening 5 5-15 [facility] Basophil percentageOrdered B y: Jesus Peters on 02-21-2023 Chloride [Moles/Vol] 107 mmol/L 98-107 [facility] Cholesterol [Mass/Vol] 262 mg/dL <200 [facility] Comment on above: <200 mg/dL Desirable 200-240 mg/dL Borderline >240 mg/dL High Risk Glucose [Mass/Vol] 88 mg/dL 74-106 [facility] Potassium [Moles/Vol] 4.1 mmol/L 3.5-5.1 [facility] Sodium [Moles/Vol] 140 mmol/L 136-145 [facility] Triglyceride [Mass/Vol] 280 mg/dL <199 [facility] Comment on above: The drugs N-Acetylcy steine and Metamizole may falsely depress this assay.Serum Triglycerides Reference Interval Normal <150 mg/dL Borderline high 150 - 199 mg/dL High 200 - 499 mg/dL Very High > or = 500 mg/dL Laboratory - Chemistry and C hemistry - challengeOrdered By: Jesus Peters on 02-21-2023 CO2 [Moles/Vol] 27.0 mmol/L 21.0-32.0 [facility] Free T4 [Mass/Vol] 1.31 ng/dL 0.76-1.46 [facility] Urea nitrogen/Creatinine [Mass ratio] 25.2 mg/mg 10-20 [facility] No Panel InformationOrdered By: Jesus Peters on 02-21-2023 Estimated GFR (MDRD) Amer 81 mL/min >60 [facility] Comment on above: GFR Calc Estimated GFR (MDRD) Non-Af Amer 67 mL/min >60 [facility] Comment on above: Non- GFR Calc Free Triiodothyronine (T3) pg/dL 2.4 pg/mL 2.18-3.98 [facility] Thyroid Stimulating Hormone (TSH) 1.61 uIU/mL 0.358-3.74 [facility] Serum or plasma calcium iris urement (mass/volume)Ordered By: Jesus Peters on 02-21-2023 Calcium [Mass/Vol] 9.7 mg/dL 8.5-10.1 [facility] Serum or plasma cholesterol in HDL measurement (mass/volume)Ordered By: Jesus Peters on 02-21-2023 Cholesterol in HDL [Mass/Vol] 47 mg/dL >40 [facility] Comment on above: The drugs N-Acetylcy steine and Metamizole may falsely depress this assay. Reference Range HDL <40 mg/dL Low HDL Cholesterol HDL >or= 60 mg/dL High HDL Cholesterol Serum or plasma cholesterol in VLDL measurement (mass/volume)Ordered By: Jesus Peters on 02-21-2023 Cholesterol in VLDL [Mass/Vol] 56 mg/dL 5-40 [facility] Serum or plasma creatinine m easurement (mass/volume)Ordered By: Jesus Peters on 02-21-2023 Creatinine [Mass/Vol] 0.87 mg/dL 0.55-1.02 [facility] Comment on above: The validity of the calculated GFR & GFRAA in patients over 70 years has not been determined. Clinical correlation is essential. Serum or plasma low density lipoprotein (LDL) cholesterol measurement (mass/volume)Ordered By: Jesus Peters on 02-21-2023 Cholesterol in LDL [Mass/Vol] 159 mg/dL 0-130 [facility] Serum or plasma urea nitroge n measurement (mass/volume)Ordered By: Jesus Peters on 02-21-2023 Urea nitrogen [Mass/Vol] 22 mg/dL 7-18 [facility] Thin prep Papanicolaou smear with manual screeningOrdered By: Jesus Peters on 02-21-2023 Thin prep Papanicolaou smear with manual screening 6 5-15 [facility] COLONOSCOPY SCREENINGon 11-20 [facility] SURGICAL PATHOLOGYon 023 Case Report Surgical Pathology R eport Case: [id number] Authorizing Provider: Kamila Mercado MD Collected: 11/27/2022 10:39 AM Ordering Location: General Surgery Received: 11/27/2022 04:13 PM Pathologist: Teresa Goncalves MD Specimen: SKIN EXCISION, left thigh [facility] Clinical History skin excision of lef t thigh [facility] Diagnosis Comment The lesion extends t o the deep and lateral aspects of the specimen. [facility] FINAL DIAGNOSIS A. Skin, left thigh, excision: - Basal cell carcinoma, nodular type, see comment. MP/DF/kr 11/28/2022 [facility] Gross Description A. SKIN EXCISION Received in formalin is a 0.7 x 0.4 x 0.3 cm shave of skin. On the skin surface there is a 0.5 cm pace elevated area. The specimen is bisected. Totally submitted in one cassette. Gross examination performed at [facility], [address] [place] [address] FFS 11/27/2022 9:04 PM [facility] Performing Lab Diagnostic interpret ation performed at [facility], [address] [facility] [address] CLIA# [id number] Heel Cementer: Len Dia M.D. [facility] Laboratory - Chemistry and C hemistry - challengeOrdered By: Jesus Peters on 11-08-2022 Free T4 [Mass/Vol] 1.17 ng/dL 0.76-1.46 [facility] No Panel InformationOrdered By: Jesus Peters on 11-08-2022 Free Triiodothyronine (T3) pg/dL 2.1 pg/mL 2.18-3.98 [facility] Thyroid Stimulating Hormone (TSH) 1.75 uIU/mL 0.358-3.74 [facility] ALLIED HEALTHon 08-31-2022 ALLIED HEALTH HNO ID: [id number] Author: Esthela Carter RT(R) Service: Radiology Author [...] Carter RT(R) August 31, 2022 9:57 AM [facility] ANES POSTPROC EVALon 023 ANES POSTPROC EVAL HNO ID: [id number] Author: Christiano Banuelos MD Service: Anesthesiology Author [...] August 31, 2022 TIME: 10:38 AM CSN: [id number] [facility] ANES PRE-OPon 08-31-2022 ANES PRE-OP HNO ID: [id number] Author: Christiano Banuelos MD Service: Anesthesiology Author [...] and consent discussed: yes. Patient / Responsible Libertarian agrees to proceed: yes Patient / Surrogate [...] Surgery/Procedure. SIGNATURE: Christiano Banuelos MD PATIENT NAME: Maddison Rivera DATE: August 31, 2022 TIME: 6:36 AM CSN: [id number] [facility] CONFIRM BLOOD TYPEon 023 ABO O [facility] Comment on above: Order Comment: Speci men Type: BLOOD SPECIMEN Ordering Facility: [facility] Address: [address] [place] [address] Performed By: #### 3 4528-0, 49547-2 #### [facility] CLIA [id number] [address] [place] [address] [place] Rh Nom (Bld) Positive [facility] Comment on above: Order Comment: Speci men Type: BLOOD SPECIMEN Ordering Facility: [facility] Address: [address] [place], [place] [address] Performed By: #### 3 4528-0, 09106-7 #### [facility] CLIA [id number] [address] [place] [address] [place] HISTORY PHYSICALon HISTORY PHYSICAL HNO ID: [id number] Author: Nayeli Perez MD Service: Orthopaedic Surgery Author Type: Physician Type: HANDP Filed: 08/31/2022 7:06 AM Note Text: HANDP reviewed without changes. Normal [facility] NURSING PROGon 08-31-2022 NURSING PROG HNO ID: [id number] Author: Danica Quintana RN Service: Nursing Author Type: Registered Nurse Type: Nursing Progress Note Filed: 08/31/2022 10:00 AM Note Text: Talked with dr banuelos about something for pain. UNABLE TO ORDER ANY IVPAIN MEDS. PT IS ALLERGIC TO NARCOTICS. EXPAINED THIS PT. SHE SAID I WILL HAVE TO DEAL WITH IT Normal [facility] OPERATIVE NOon 08-31-2022 OPERATIVE NO HNO ID: [id number] Author: Nayeli Perez MD Service: Orthopaedic Surgery Author Type: Physician Type: Operative Report Filed: 08/31/2022 9:33 AM Note Text: OPERATIVE/PROCEDURE REPORT LOG ID: [id number] SURGERY/PROCEDURE DATE: 08/31/2022 INCISION/PROCEDURE START TIME: 8:12 AM INCISION CLOSE/PROCEDURE END TIME: SURGEON(S)/PROCEDURALIST( S) AND SWITCHMAN(S): Surgeon(s) and Role: * Nayeli Perez MD - Primary Glue Bone Drier: Tasha Hassan SA SURGERY/PROCEDURE(S): Left reverse total [...] laterally in a gentle manner with a Delmis retractor. The axillary nerve was palpated and [...] any remaining cartilage and labrum circumferentially. The helicopter pilot hole for the glenoid reamers was [...] PRE-OP/PRE-PROCEDURE DIAGNOSI (more content not included)... Normal [facility] XR SHOULDER SPECIFY 1V LTon [...] object. IMPRESSION: Expected postoperative changes as above. Formula Mixer: BILL Transcribe Date/Time: Aug 31 2022 10:05A Dictated by : MARYANNE HOROWITZ MD This examination was interpreted and the report reviewed and electronically signed by: MARYANNE HOROWITZ MD on Aug 31 2022 10:06AM EST [id number] [facility] CNPNon 08-24-2022 ANAN Telephone (PRANMY) ----- LUCIANOMADDISON Vanegas ([id number]) 1945 F Date Time Provider Department 08/24/22 [...] - Other: See Comments Comments: PH SYCOTIC [id number] REDUCTASE INHIBIT*05/06/2021 14 - Other: See Comments [...] Encounter Status:Closed by ESTHELA JIMENEZ on 08/24/22 [facility] Laboratory - Chemistry and C hemistry - challengeOrdered By: Jesus Peters on 08-24-2022 Free T4 [Mass/Vol] 1.17 ng/dL 0.76-1.46 [facility] No Panel InformationOrdered By: Jesus Peters on 08-24-2022 Free Triiodothyronine (T3) pg/dL 2.1 pg/mL 2.18-3.98 [facility] Thyroid Stimulating Hormone (TSH) 2.28 uIU/mL 0.358-3.74 [facility] CNPNon 08-10-2022 CNPN Telephone (PRANMY) ----- MADDISON RIVERA ([id number]) 1945 F Date Time Provider Department 08/10/22 [...] - Other: See Comments Comments: PH SYCOTIC [id number] REDUCTASE INHIBIT*05/06/2021 14 - Other: See Comments [...] Encounter Status:Closed by ESTHELA JIMENEZ on 08/17/22 [facility] ECG COMPLETEon 08-08-2022 Atrial Rate 72 BPM [facility] Calculated P [place] 10 degrees [facility] Calculated R [place] 35 degrees [facility] Calculated T [place] 52 degrees [facility] P-R Interval 140 ms [facility] QRS Duration 82 ms [facility] QT Interval 396 ms [facility] QTC Calculation (Bazett) 433 ms [facility] Ventricular Rate [address] [facility] ACTIVATED PTTon 08-07-2022 aPTT Coag (PPP) [Time] 21.6 s Low 23.0 - 32.4 sec [facility] CBC panel Auto (Bld)on 08-07 Erythrocyte distribution width (RBC) [Ratio] 12.9 % 11.5 - 15.0 % [facility] Hematocrit (Bld) [Volume fraction] 48.5 % High 36.0 - 46.0 % [facility] Hemoglobin (Bld) [Mass/Vol] 15.8 g/dL High 11.5 - 15.5 g/dL [facility] MCH (RBC) [Entitic mass] 30.0 pg 26.0 - 34.0 pg [facility] MCHC (RBC) [Mass/Vol] 32.6 g/dL 30.5 - 36.0 g/dL [facility] MCV (RBC) [Entitic vol] 92.0 fL 80.0 - 100.0 fL [facility] Nucleated RBC (Bld) [#/Vol] <0.01 k/uL [facility] Platelet mean volume (Bld) [Entitic vol] 12.3 fL 9.0 - 12.7 fL [facility] Platelets (Bld) [#/Vol] 259 10*3/uL 150 - 400 k/uL [facility] RBC (Bld) [#/Vol] 5.27 10*6/uL High 3.90 - 5.2 0 m/uL [facility] WBC (Bld) [#/Vol] 10.79 10*3/uL 3.70 - 11.00 k/uL [facility] Erythrocyte distribution width (RBC) [Ratio] 12.9 % Normal 11.5-15.0 [facility] Comment on above: Order Comment: Speci men Type: BLOOD SPECIMEN Ordering Facility: [facility] Address: [address] [place] [address] [place] [address] Performed By: #### 5 8410-2, 93862-8 #### [facility] CLIA [id number] [address] [place] [address] [place] Hematocrit (Bld) [Volume fraction] 48.5 % High 36.0-46.0 [facility] Comment on above: Order Comment: Speci men Type: BLOOD SPECIMEN Ordering Facility: [facility] Address: [address] [place] [address] Performed By: #### 5 8410-2, 16956-7 #### [facility] CLIA [id number] [address] [place] [address] [place] Hemoglobin (Bld) [Mass/Vol] 15.8 g/dL High 11.5-15.5 [facility] Comment on above: Order Comment: Speci men Type: BLOOD SPECIMEN Ordering Facility: [facility] Address: [address] [place] [address] Performed By: #### 5 8410-2, 78344-0 #### [facility] CLIA [id number] [address] [place] [address] [place] MCH (RBC) [Entitic mass] 30.0 pg Normal 26.0-34.0 [facility] Comment on above: Order Comment: Speci men Type: BLOOD SPECIMEN Ordering Facility: [facility] Address: [address] [place] [address] Performed By: #### 5 8410-2, 81799-9 #### [facility] CLIA [id number] [address] [place] [address] [place] MCHC (RBC) [Mass/Vol] 32.6 g/dL Normal 30.5-36.0 [facility] Comment on above: Order Comment: Speci men Type: BLOOD SPECIMEN Ordering Facility: [facility] Address: [address] [place] [address] Performed By: #### 5 8410-2, 79586-7 #### [facility] CLIA [id number] [address] [place] [address] [place] MCV (RBC) [Entitic vol] 92.0 fL Normal 80.0-100.0 [facility] Comment on above: Order Comment: Speci men Type: BLOOD SPECIMEN Ordering Facility: [facility] Address: [address] [place] [address] Performed By: #### 5 8410-2, 34992-4 #### [facility] CLIA [id number] [address] [place] [address] [place] Nucleated RBC (Bld) [#/Vol] 10*3/uL Normal <0.01 [facility] Comment on above: Order Comment: Speci men Type: BLOOD SPECIMEN Ordering Facility: [facility] Address: [address] [place] [address] Performed By: #### 5 8410-2, 34580-7 #### [facility] CLIA [id number] [address] [place] [address] [place] Platelet mean volume (Bld) [Entitic vol] 12.3 fL Normal 9.0-12.7 [facility] Comment on above: Order Comment: Speci men Type: BLOOD SPECIMEN Ordering Facility: [facility] Address: [address] [place], [place] [address] Performed By: #### 5 8410-2, 46257-9 #### [facility] CLIA [id number] [address] [place] [address] [place] Platelets (Bld) [#/Vol] 259 10*3/uL Normal 150-400 [facility] Comment on above: Order Comment: Speci men Type: BLOOD SPECIMEN Ordering Facility: [facility] Address: [address] [place], [place] [address] Performed By: #### 5 8410-2, 47518-0 #### [facility] CLIA [id number] [address] [place] [address] [place] RBC (Bld) [#/Vol] 5.27 10*6/uL High 3.90-5.20 [facility] Comment on above: Order Comment: Speci men Type: BLOOD SPECIMEN Ordering Facility[facility] Address: [address] [address] Performed By: #### 5 8410-2, 19091-9 #### [facility] CLIA [id number] [address] [place] [address] [place] WBC (Bld) [#/Vol] 10.79 10*3/uL Normal 3.70-11.00 [facility] Comment on above: Order Comment: Speci men Type: BLOOD SPECIMEN Ordering Facility: [facility] Address: [address] [place] [address] Performed By: #### 5 8410-2, 43674-4 #### [facility] CLIA [id number] [facility] [address] [place] Comprehensive metabolic 2000 panelon 08-07-2022 Albumin [Mass/Vol] 4.2 g/dL 3.2 - 5.0 g/dL [facility] ALP [Catalytic activity/Vol] 117 U/L 45 - 117 U/L [facility] ALT [Catalytic activity/Vol] 23 U/L 13 - 61 U/L [facility] Anion gap [Moles/Vol] 9 mmol/L 5 - 16 mmol/L [facility] AST [Catalytic activity/Vol] 28 U/L 8 - 34 U/L [facility] Bilirubin [Mass/Vol] 0.5 mg/dL 0.2 - 1 .0 mg/dL [facility] Calcium [Mass/Vol] 10.5 mg/dL 8.5 - 10. 5 mg/dL [facility] Chloride [Moles/Vol] 105 mmol/L 98 - 10 7 mmol/L [facility] CO2 [Moles/Vol] 26 mmol/L 21 - 32 mmol/L [facility] Creatinine [Mass/Vol] 1.01 mg/dL High 0.51 - 0.95 mg/dL [facility] Estimated Glomerular Filtration Rate 58 mL/min/1.73m Low >=60 mL/min/1.73 m [facility] Glucose [Mass/Vol] 73 mg/dL 70 - 100 mg/dL [facility] Potassium [Moles/Vol] 4.7 mmol/L 3.5 - 5.1 mmol/L [facility] Protein [Mass/Vol] 8.0 g/dL 6.0 - 8.5 g/dL [facility] Sodium [Moles/Vol] 140 mmol/L 136 - 145 mmol/L [facility] Urea nitrogen [Mass/Vol] 26 mg/dL 7 - 26 mg/dL [facility] Albumin [Mass/Vol] 4.2 g/dL Normal 3.2-5.0 [facility] Comment on above: Order Comment: Speci men Type: BLOOD SPECIMEN [facility]ing Facility: [facility] Address: [address] [place] [address] Performed By: #### 2 4323-8 #### [facility] CLIA [id number] [address] [place] [address] [place] ALP [Catalytic activity/Vol] 117 U/L Normal 45-117 [facility] Comment on above: Order Comment: Speci men Type: BLOOD SPECIMEN Ordering Facility: [facility] Address: [address] [place] [address] Performed By: #### 2 4323-8 #### [facility] CLIA [id number] [address] [place] [address] [place] ALT [Catalytic activity/Vol] 23 U/L Normal 13-61 [facility] Comment on above: Order Comment: Millyi men Type: BLOOD SPECIMEN Ordering Facility: [facility] Address: [address] [place] [address] Result Comment: Resu lts may be falsely depressed after the administration of Sulfasalazine and/or Sulfapyridine. Performed By: #### 2 4323-8 #### [facility] CLIA [id number] [address] [place] [address] [place] Anion gap [Moles/Vol] 9 mmol/L Normal 5-16 [facility] Comment on above: Order Comment: Millyi men Type: BLOOD SPECIMEN Ordering Facility: [facility] Address: [address] [place] [address] Performed By: #### 2 4323-8 #### [facility] CLIA [id number] [address] [place] [address] [place] AST [Catalytic activity/Vol] 28 U/L Normal 8-34 [facility] Comment on above: Order Comment: Speci men Type: BLOOD SPECIMEN Ordering Facility: [facility] Address: [address] [place] [address] Result Comment: Resu lts may be falsely depressed after the administration of Sulfasalazine and/or Sulfapyridine. Performed By: #### 2 4323-8 #### [facility] CLIA [id number] [address] [place] [address] [place] Bilirubin [Mass/Vol] 0.5 mg/dL Normal 0.2-1.0 [facility] Comment on above: Order Comment: Speci men Type: BLOOD SPECIMEN Ordering Facility: [facility] Address: [address] [place] [address] Performed By: #### 2 4323-8 #### [facility] CLIA [id number] [address] [place] [address] [place] Calcium [Mass/Vol] 10.5 mg/dL Normal 8.5-10.5 [facility] Comment on above: Order Comment: Speci men Type: BLOOD SPECIMEN Ordering Facility: [facility] Address: [address] [place] [address] Performed By: #### 2 4323-8 #### [facility] CLIA [id number] [address] [place] [address] [place] Chloride [Moles/Vol] 105 mmol/L Normal 98-107 [facility] Comment on above: Order Comment: Speci men Type: BLOOD SPECIMEN Ordering Facility: [facility] Address: [address] [place] [address] Performed By: #### 2 4323-8 #### [facility] CLIA [id number] [address] [place] [address] [place] CO2 [Moles/Vol] 26 mmol/L Normal 21-32 [facility] Comment on above: Order Comment: Speci men Type: BLOOD SPECIMEN Ordering Facility: [facility] Address: [address] [id number] Performed By: #### 2 4323-8 #### [facility] CLIA [id number] [address] [place] [address] [place] Creatinine [Mass/Vol] 1.01 mg/dL High 0.51-0.95 [facility] Comment on above: Order Comment: Leland orozco Type: BLOOD SPECIMEN Ordering Facility: [facility] Address: [address] [address] Result Comment: Aleyda ents receiving either N-Acetylcysteine (NAC) or Metamizole prior to venipuncture, may have falsely depressed results. Performed By: #### 2 4323-8 #### [facility] CLIA [id number] [address] [place] [address] [place] ESTIMATED GLOMERULAR FILTRATION RATE 58 mL/min/1.73m??? Low >=60 [facility] Comment on above: Order Comment: Leland orozco Type: BLOOD SPECIMEN Ordering Facility: [facility] Address: [address] [address] Result Comment: Sally mated Glomerular Filtration Rate [...] GFR. Performed By: #### 2 4323-8 #### [facility] CLIA [id number] [address] [place] [address] [place] Glucose [Mass/Vol] 73 mg/dL Normal 70-100 [facility] Comment on above: Order Comment: Leland orozco Type: BLOOD SPECIMEN Ordering Facility: [facility] Address: [address] [place] [address] Result Comment: The [place] Diabetes Association (ADA) provides guidance for cutoff [...] Standards of Medical Care in Diabetes 2016, [place] Diabetes Association. Diabetes Care. 2016.39(Suppl 1). Results may be falsely elevated after the administration of Sulfapyridine. Results may be falsely depressed after the administration of Sulfasalazine. Performed By: #### 2 4323-8 #### [facility] CLIA [id number] [address] [place] [address] [place] Potassium [Moles/Vol] 4.7 mmol/L Normal 3.5-5.1 [facility] Comment on above: Order Comment: Leland orozco Type: BLOOD SPECIMEN Ordering Facility: [facility] Address: [address] [place] [address] Performed By: #### 2 4323-8 #### [facility] CLIA [id number] [address] [place] [address] [place] Protein [Mass/Vol] 8.0 g/dL Normal 6.0-8.5 [facility] Comment on above: Order Comment: Leland orozco Type: BLOOD SPECIMEN Ordering Facility: [facility] Address: [address] [place] [address] Performed By: #### 2 4323-8 #### [facility] CLIA [id number] [address] [place] [address] [place] Sodium [Moles/Vol] 140 mmol/L Normal 136-145 [facility] Comment on above: Order Comment: Millyi pam Type: BLOOD SPECIMEN Ordering Facility: [facility] Address: [address] [place] [address] Performed By: #### 2 4323-8 #### [facility] CLIA [id number] [address] [place] [address] [place] Urea nitrogen [Mass/Vol] 26 mg/dL Normal 7-26 [facility] Comment on above: Order Comment: Leland orozco Type: BLOOD SPECIMEN Ordering Facility: [facility] Address: [address] [place] [address] Performed By: #### 2 4323-8 #### [facility] CLIA [id number] [address] [id number] 08-07-2022 ECG01 Ventricular Rate : 7 2 BPM Atrial Rate : 72 BPM P-R Interval : 140 ms QRS Duration : 82 ms Q-T Interval : 396 ms QTC Calculation(Bazett) : 433 ms Calculated P [place] : 10 degrees Calculated R [place] : 35 degrees Calculated T [place] : 52 degrees Normal sinus rhythm Normal ECG No previous ECGs available Confirmed by GIOVANNA MORALES MD ([id number]) on 08/08/2022 7:33:06 AM NAME : MADDISON RIVERA PID : [id number] : 1945 Gender : Female Race : ORD : [id number] Procedure Date : Aug 07 2022 12:14:19 Edit Date : Aug 08 2022 07:33:08 Diagnosis: Normal sinus rhythm Normal ECG No previous ECGs available Confirmed by GIOVANNA MORALES MD ([id number]) on 08/08/2022 7:33:06 AM Test Reason : [facility] : [facility] Over[facility] By : GIOVANNA MORALES MD Edited By : GIOVANNA MORALES MD Referred By : CHRIS Acquired by : [facility], [facility] HbA1c (Bld)on 08-07-2022 Average glucose Estimated from glycated hemoglobin (Bld) [Mass/Vol] 117 mg/dL [facility] HbA1c (Bld) [Mass fraction] 5.7 % 4.3 - 6.0 % [facility] Average glucose Estimated from glycated hemoglobin (Bld) [Mass/Vol] 117 mg/dL [facility] Comment on above: Order Comment: Leland orozco Type: BLOOD SPECIMEN Ordering Facility: [facility] Address: [place] [address] Result Comment: eAG: (Estimated average glucose) is a calculated value from HgbA1c and is welding equipment sales representative of the average blood glucose level in the last 2-3 month period. Performed By: #### 5 8410-2, 52178-7 #### [facility] CLIA [id number] [address] [place] [address] HbA1c (Bld) [Mass fraction] 5.7 % Normal 4.3-6.0 [facility] Comment on above: Order Comment: Leland orozco Type: BLOOD SPECIMEN Ordering Facility: [facility] Address: [address] [place] [address] Result Comment: [place] Diabetes Association guidelines indicate that patients with HgbA1c in the range 5.7-6.4% are at increased risk for development of diabetes, and intervention by lifestyle modification may be beneficial. HgbA1c greater or equal to 6.5% is considered diagnostic of diabetes. Performed By: #### 5 8410-2, 80068-9 #### [facility] CLIA [id number] [address] [place] [address] Laboratory - Microbiology an d Antimicrobial susceptibilityon 08-07-2022 S. aureus and MRSA panel JAYASHREE+probe (Nose) Negative Negative [facility] No Panel Informationon 08-07 [facility] PT panel Coag (PPP)on 2022 INR Coag (PPP) [Relative time] 1.0 {INR} Normal 0.9-1.3 [facility] Comment on above: Order Comment: Leland orozco Type: BLOOD SPECIMEN Ordering Facility: [facility] Address: [address] [place], [place] [address] Result Comment: Magalys min K Antagonist (VKA) Therapeutic Range: INR 2 to 3 (Target INR of 2.5) Note: For patients treated with VKA drugs, such as warfarin, the [place] [employer] 2012 Guideline recommends [...] Chest 2012, 141:7S-47S Kavin RA, et al. [facility] 2017, 70: 252-289 Performed By: #### 3 4528-0, 42081-4 #### [facility] CLIA [id number] [address] [place] [address] OF [facility] PT Coag (PPP) [Time] 10.3 s Normal 9.7-13.0 [facility] Comment on above: Order Comment: Speci men Type: BLOOD SPECIMEN Ordering Facility: [facility] Address: [address] [place] [address] Performed By: #### 3 4528-0, 75407-7 #### [facility] CLIA [id number] [address] [place] [address] INR Coag (PPP) [Relative time] 1.0 {INR} 0.9 - 1.3 [facility] PT Coag (PPP) [Time] 10.3 s 9.7 - 1 3.0 sec [facility] STAPH AUREUS PCRon 3 S. aureus and MRSA panel JAYASHREE+probe (Nose) Normal Negative [facility] Comment on above: Order Comment: Speci men Type: SWAB OF INTERNAL NOSE Ordering Facility: [facility] Address: [address] [place] [address] Result Comment: Nega tive for Staphylococcus aureus by PCR. Negative for MRSA by PCR Performed By: #### S APCR #### [facility] CLIA [id number] [address] [place] [address] TYPE AND SCREEN,30 DAYon ABO O Normal [facility] Comment on above: Order Comment: Speci men Type: BLOOD SPECIMEN Ordering Facility[facility] Address: [address] [place] [address] Performed By: #### T SCR30 #### [facility] CLIA [id number] [address] [place] [address] HIstorical Ab Scr Status Negative Normal [facility] Comment on above: Order Comment: Speci men Type: BLOOD SPECIMEN Ordering Facility[facility] Address: [address] [address] Performed By: #### T SCR30 #### [facility] CLIA [id number] [address] [place] [address] Rh Nom (Bld) Positive Normal [facility] Comment on above: Order Comment: Speci men Type: BLOOD SPECIMEN Ordering Facility[facility] Address: [address] [id number] Performed By: #### T SCR30 #### [facility] CLIA [id number] [address] [place] [address] XR CHEST 2V FRONTAL/LATon XR CHEST 2V [...] the spine. IMPRESSION: No acute radiographic abnormality. Formula Mixer: PSCB Transcribe Date/Time: Aug 07 2022 2:49P Dictated by : IRA HILL MD This examination was interpreted and the report reviewed and electronically signed by: IRA HILL MD on Aug 07 2022 2:50PM EST [id number] Normal [facility] aPTT PPPon 08-07-2022 aPTT Coag (PPP) [Time] 21.6 s Low 23.0-32.4 [facility] Comment on above: Order Comment: Leland orozco Type: BLOOD SPECIMEN Ordering Facility: [facility] Address: [address], [place] [address] Result Comment: Ther apeutic Heparin Reference Range: [...] the PTT. Performed By: #### 3 4528-0, 56499-8 #### [facility] CLIA [id number] [address] [place], [place] [address] [place] Basophil percentageOrdered B y: Dr. Peters on 05-12-2022 Cholesterol [Mass/Vol] 255 mg/dL <200 [facility] Comment on above: <200 mg/dL Desirable 200-240 mg/dL Borderline >240 mg/dL High Risk Triglyceride [Mass/Vol] 142 mg/dL <199 [facility] Comment on above: The drugs N-Acetylcy steine and Metamizole may falsely depress this assay.Serum Triglycerides Reference Interval Normal <150 mg/dL Borderline high 150 - 199 mg/dL High 200 - 499 mg/dL Very High > or = 500 mg/dL Serum or plasma cholesterol in HDL measurement (mass/volume)Ordered By: Dr. Peters on 05-12-2022 Cholesterol in HDL [Mass/Vol] 56 mg/dL >40 [facility] Comment on above: The drugs N-Acetylcy steine and Metamizole may falsely depress this assay. Reference Range HDL <40 mg/dL Low HDL Cholesterol HDL >or= 60 mg/dL High HDL Cholesterol Serum or plasma cholesterol in VLDL measurement (mass/volume)Ordered By: Dr. Peters on 05-12-2022 Cholesterol in VLDL [Mass/Vol] 28 mg/dL 5-40 [facility] Serum or plasma low density lipoprotein (LDL) cholesterol measurement (mass/volume)Ordered By: Dr. Peters on 05-12-2022 Cholesterol in LDL [Mass/Vol] 171 mg/dL 0-130 [facility] Basophil percentageOrdered B y: Dr. Peters on 03-01-2022 Chloride [Moles/Vol] 104 mmol/L 98-107 [facility] Cholesterol [Mass/Vol] 268 mg/dL <200 [facility] Comment on above: <200 mg/dL Desirable 200-240 mg/dL Borderline >240 mg/dL High Risk Glucose [Mass/Vol] 86 mg/dL 74-106 [facility] Potassium [Moles/Vol] 4.0 mmol/L 3.5-5.1 [facility] Sodium [Moles/Vol] 138 mmol/L 136-145 [facility] Triglyceride [Mass/Vol] 161 mg/dL <199 [facility] Comment on above: The drugs N-Acetylcy steine and Metamizole may falsely depress this assay.Serum Triglycerides Reference Interval Normal <150 mg/dL Borderline high 150 - 199 mg/dL High 200 - 499 mg/dL Very High > or = 500 mg/dL Laboratory - Chemistry and C hemistry - challengeOrdered By: Dr. Peters on 03-01-2022 CO2 [Moles/Vol] 27.0 mmol/L 21.0-32.0 [facility] Urea nitrogen/Creatinine [Mass ratio] 23.8 mg/mg 10-20 [facility] No Panel InformationOrdered By: Dr. Peters on 03-01-2022 Estimated GFR (MDRD) Amer 72 mL/min >60 [facility] Comment on above: GFR Calc Estimated GFR (MDRD) Non-Af Amer 60 mL/min >60 [facility] Comment on above: Non- GFR Calc Thyroid Stimulating Hormone (TSH) 2.50 uIU/mL 0.358-3.74 [facility] Serum or plasma calcium iris urement (mass/volume)Ordered By: Dr. Peters on 03-01-2022 Calcium [Mass/Vol] 9.6 mg/dL 8.5-10.1 [facility] Serum or plasma cholesterol in HDL measurement (mass/volume)Ordered By: Dr. Peters on 03-01-2022 Cholesterol in HDL [Mass/Vol] 55 mg/dL >40 [facility] Comment on above: The drugs N-Acetylcy steine and Metamizole may falsely depress this assay. Reference Range HDL <40 mg/dL Low HDL Cholesterol HDL >or= 60 mg/dL High HDL Cholesterol Serum or plasma cholesterol in VLDL measurement (mass/volume)Ordered By: Dr. Peters on 03-01-2022 Cholesterol in VLDL [Mass/Vol] 32 mg/dL 5-40 [facility] Serum or plasma creatinine m easurement (mass/volume)Ordered By: Dr. Peters on 03-01-2022 Creatinine [Mass/Vol] 0.97 mg/dL 0.55-1.02 [facility] Comment on above: The validity of the calculated GFR & GFRAA in patients over 70 years has not been determined. Clinical correlation is essential. Serum or plasma low density lipoprotein (LDL) cholesterol measurement (mass/volume)Ordered By: Dr. Peters on 03-01-2022 Cholesterol in LDL [Mass/Vol] 181 mg/dL 0-130 [facility] Serum or plasma urea nitroge n measurement (mass/volume)Ordered By: Dr. Peters on 03-01-2022 Urea nitrogen [Mass/Vol] 23 mg/dL 7-18 [facility] Thin prep Papanicolaou smear with manual screeningOrdered By: Dr. Peters on 03-01-2022 Thin prep Papanicolaou smear with manual screening 7 5-15 [facility] CNPNon 07-01-2021 CNPN Telephone (RHBATH) ----- MADDISON RIVERA ([id number]) 1945 F Date Time Provider Department 07/01/21 [...] - Hives PREDNISONE 07/03/2006 16 - Unknown [id number] REDUCTASE INHIBIT*05/06/2021 14 - Other: See Comments [...] 1 tablet by mouth once daily. - Lindsay-3 Fatty Acids (FISH OIL) 500 mg Cap [...] Encounter Status:Closed by DALTON VILLA on 07/01/21 [facility] Dayanara 05-13-2021 ANAN Telephone (CitilogATH) ----- MADDISON RIVERA ([id number]) 1945 F Date Time Provider Department 05/13/21 [...] below: 05/31/2021 12:20 PM Irasema Vela MD [facility] [place] LPN Allergies As of [...] - Hives PREDNISONE 07/03/2006 16 - Unknown [id number] REDUCTASE INHIBIT*05/06/2021 14 - Other: See Comments [...] Fully Assessed Reason for Visit: Patient Question [1387] Prescriptions as of 05/17/2021 - lisinopril (ZESTRIL, [...] 1 tablet by mouth once daily. - Lindsay-3 Fatty Acids (FISH OIL) 500 mg Cap [...] Status:Closed by DALTON VILLA on 05/13/21 Normal [facility] MASOOD BY IFA SCREENon 05-07-19 Nuclear Ab IF (S) [Titer] Negative Normal Negative [facility] Comment on above: Order Comment: Speci men Type: BLOOD SPECIMENOrdering Facility: [facility] Address: [address] [place] [address] Result Comment: Anti -nuclear antibody test is used as an aid in diagnosis of systemic autoimmune diseases. Where positive and clinically warranted, follow-up using disease-specific testing is recommended. Low positive titers are not uncommon with advanced age, certain chronic infections, and malignancies among others. Test methodology: Indirect fluorescence immunoassay (IFA) using HEp-2 cells. Performed By: #### A NAIFS ####[facility]IA [id number] [place] [address] [place] BLOOD TB SCREEN, INCUBATEDon 05-06-2021 M. tuberculosis tuberculin stim IFN-g Ql (Bld) Negative Normal [facility] Comment on above: Order Comment: Speci men Type: BLOOD SPECIMENOrdering Facility: [facility] Address: [address] [place], [place] [id number] Performed By: #### I NTPGP ####[facility]IA [id number] [place] [address] [place] MITOGEN MINUS NIL >10.00 Normal >=0.50 [facility] Comment on above: Order Comment: Speci men Type: BLOOD SPECIMENOrdering Facility: [facility] Address: [address] [place] [address] Performed By: #### I NTPGP ####[facility]IA [id number] [address] [place] TB GAMMA INTERPRETATION Infection with M. tuberculosis complex is unlikely. If latent tuberculosis infection is highly suspected, a negative result does not rule out the infection. Specimens from immunocompromised patients and those <5 years of age may show false negative results. In case of a contact investigation, please repeat 8-12 weeks after a known exposure. Normal [facility] Comment on above: Order Comment: Speci men Type: BLOOD SPECIMENOrdering Facility: [facility] Address: [address] [place] [address] Performed By: #### I NTPGP ####[facility]IA [id number] [address] TB NIL 0.00 IU/mL Normal <=8.00 [facility] Comment on above: Order Comment: Speci men Type: BLOOD SPECIMENOrdering Facility: [facility] Address: [address] [place] [address] Performed By: #### I NTPGP ####[facility] LABCLIA [id number] [address] [place] TB1 AG MINUS NIL 0.00 IU/mL Normal <0.35 [facility] Comment on above: Order Comment: Speci men Type: BLOOD SPECIMENOrdering Facility: [facility] Address: [address] [place], [place] [address] Performed By: #### I NTPGP ####[facility] LABIA [id number] [address] [place] TB2 AG MINUS NIL 0.00 IU/mL Normal <0.35 [facility] Comment on above: Order Comment: Speci men Type: BLOOD SPECIMENOrdering Facility: [facility] Address: [address] [place], [place] [address] Performed By: #### I NTPGP ####[facility] LABCLIA [id number] [facility] [id number] [place] CBC W Auto Differential pane l (Bld)on 05-06-2021 Basophils (Bld) [#/Vol] 0.07 10*3/uL Normal <0.11 [facility] Comment on above: Order Comment: Speci men Type: BLOOD SPECIMEN [facility] Address: [address] [address] Performed By: #### 5 7021-8 #### [facility] CLIA [id number] [address] STATES [facility] Basophils/100 WBC (Bld) 0.7 % Normal [facility] Comment on above: Order Comment: Speci men Type: BLOOD SPECIMEN [facility] Address: [address] [place] [address] Performed By: #### 5 7021-8 #### [facility] CLIA [id number] [address] [place] [address] Differential cell count method Nom (Bld) Auto Normal [facility] Comment on above: Order Comment: Speci men Type: BLOOD SPECIMEN [facility] Address: [address] [place] [address] Performed By: #### 5 7021-8 #### [facility] CLIA [id number] [address] [place] Eosinophils (Bld) [#/Vol] 0.08 10*3/uL Normal <0.46 [facility] Comment on above: Order Comment: Speci men Type: BLOOD SPECIMEN [facility] [facility] Address: [address] [place] [address] Performed By: #### 5 7021-8 #### [facility] CLIA [id number] [address] [place] Eosinophils/100 WBC (Bld) 0.8 % Normal [facility] Comment on above: Order Comment: Speci men Type: BLOOD SPECIMEN [facility]ing Facility[facility] Address: [address] [place] [address] Performed By: #### 5 7021-8 #### [facility] CLIA [id number] [address] OF [facility] Erythrocyte distribution width (RBC) [Ratio] 13.7 % Normal 11.5-15.0 [facility] Comment on above: Order Comment: Speci men Type: BLOOD SPECIMEN Ordering Facility: [facility] Address: [address] [place] [address] Performed By: #### 5 7021-8 #### [facility] CLIA [id number] [address] Hematocrit (Bld) [Volume fraction] 45.8 % Normal 36.0-46.0 [facility] Comment on above: Order Comment: Speci men Type: BLOOD SPECIMEN [facility]ing Facility: [facility] Address: [address] [place] [address] Performed By: #### 5 7021-8 #### [facility] CLIA [id number] [address] [facility] Hemoglobin (Bld) [Mass/Vol] 14.2 g/dL Normal 11.5-15.5 [facility] Comment on above: Order Comment: Speci men Type: BLOOD SPECIMEN [facility]ing Facility: [facility] Address: [address] [place] [address] Performed By: #### 5 7021-8 #### [facility] CLIA [id number] [address] IMMATURE GRAN % 0.7 % Normal [facility] Comment on above: Order Comment: Speci men Type: BLOOD SPECIMEN [facility]ing Facility: [facility] Address: [address] [place] [address] Performed By: #### 5 7021-8 #### [facility] CLIA [id number] [address] IMMATURE GRAN ABS 0.07 k/uL Normal <0.10 [facility] Comment on above: Order Comment: Speci men Type: BLOOD SPECIMEN [facility]ing Facility: [facility] Address: [address] [place] [address] Performed By: #### 5 7021-8 #### [facility] CLIA [id number] [address] Lymphocytes (Bld) [#/Vol] 0.94 10*3/uL Low 1.00-4.00 [facility] Comment on above: Order Comment: Speci men Type: BLOOD SPECIMEN [facility] Facility[facility] Address: [address] [place] [address] Performed By: #### 5 7021-8 #### [facility] CLIA [id number] [address] Lymphocytes/100 WBC (Bld) 9.5 % Normal [facility] Comment on above: Order Comment: Speci men Type: BLOOD SPECIMEN [facility]ing Facility[facility] Address: [address] [place] [address] Performed By: #### 5 7021-8 #### [facility] CLIA [id number] [address] MCH (RBC) [Entitic mass] 29.8 pg Normal 26.0-34.0 [facility] Comment on above: Order Comment: Speci men Type: BLOOD SPECIMEN Ordering Facility: [facility] Address: [address] [place] [address] Performed By: #### 5 7021-8 #### [facility] CLIA [id number] [address] MCHC (RBC) [Mass/Vol] 31.0 g/dL Normal 30.5-36.0 [facility] Comment on above: Order Comment: Speci men Type: BLOOD SPECIMEN [facility] Address: [address] [place] [address] Performed By: #### 5 7021-8 #### [facility] CLIA [id number] [address] [place] MCV (RBC) [Entitic vol] 96.2 fL Normal 80.0-100.0 [facility] Comment on above: Order Comment: Speci men Type: BLOOD SPECIMEN [facility] Address: [address] [place] [address] Performed By: #### 5 7021-8 #### [facility] CLIA [id number] [address] [place] Monocytes (Bld) [#/Vol] 0.22 10*3/uL Normal <0.87 [facility] Comment on above: Order Comment: Speci men Type: BLOOD SPECIMEN [facility]ing [facility] Address: [address] [place] [address] Performed By: #### 5 7021-8 #### [facility] CLIA [id number] [address] Monocytes/100 WBC (Bld) 2.2 % Normal [facility] Comment on above: Order Comment: Speci men Type: BLOOD SPECIMEN [facility] Address: [address] [place] [address] Performed By: #### 5 7021-8 #### [facility] CLIA [id number] [address] [place] Neutrophils (Bld) [#/Vol] 8.49 10*3/uL High 1.45-7.50 [facility] Comment on above: Order Comment: Speci men Type: BLOOD SPECIMEN [facility] Address: [address] [place] [address] Performed By: #### 5 7021-8 #### [facility] CLIA [id number] [address] [place] Neutrophils/100 WBC (Bld) 86.1 % Normal [facility] Comment on above: Order Comment: Speci men Type: BLOOD SPECIMEN Ordering Facility: [facility] Address: [address] Performed By: #### 5 7021-8 #### [facility] CLIA [id number] [address] [place] Nucleated RBC (Bld) [#/Vol] 10*3/uL Normal <0.01 [facility] Comment on above: Order Comment: Speci men Type: BLOOD SPECIMEN Ordering [facility] Address: [address] [address] Performed By: #### 5 7021-8 #### [facility] CLIA [id number] [address] [place] Nucleated RBC/100 WBC (Bld) [Ratio] 0.0 /100 WBC Normal [facility] Comment on above: Order Comment: Speci men Type: BLOOD SPECIMEN [facility] Address: [address] [place] [address] Performed By: #### 5 7021-8 #### [facility] CLIA [id number] [address] [place] Platelet mean volume (Bld) [Entitic vol] 12.5 fL Normal 9.0-12.7 [facility] Comment on above: Order Comment: Speci men Type: BLOOD SPECIMEN [facility] Address: [address] [place] [address] Performed By: #### 5 7021-8 #### [facility] CLIA [id number] [address] [place] Platelets (Bld) [#/Vol] 290 10*3/uL Normal 150-400 [facility] Comment on above: Order Comment: Speci men Type: BLOOD SPECIMEN [facility] Address: [address] [place] [address] Performed By: #### 5 7021-8 #### [facility] CLIA [id number] [address] [place] RBC (Bld) [#/Vol] 4.76 10*6/uL Normal 3.90-5.20 [facility] Comment on above: Order Comment: Speckathleen pam Type: BLOOD SPECIMEN [facility] Address: [address] [place] [address] Performed By: #### 5 7021-8 #### [facility] CLIA [id number] [address] WBC (Bld) [#/Vol] 9.87 10*3/uL Normal 3.70-11.00 [facility] Comment on above: Order Comment: Leland orozco Type: BLOOD SPECIMEN [facility] Address: [address] [place] [address] Performed By: #### 5 7021-8 #### [facility] CLIA [id number] [address] CNOVon 05-06-2021 CNOV Office Visit (RHBATH ) ----- MADDISON RIVERA ([id number]) 1945 F Date Time Provider Department 05/06/21 [...] not taking: Reported on 07/29/2018 ) - Lindsay-3 Fatty Acids (FISH OIL) 500 mg Cap Take by mouth once daily. Takes 600 mg pill daily (Patient not taking: Reported on more content not included)... Normal [facility] Comprehensive metabolic 2000 panelon 05-06-2021 Albumin [Mass/Vol] 4.4 g/dL Normal 3.9-4.9 [facility] Comment on above: Order Comment: Speci men Type: BLOOD SPECIMENOrdering Facility: [facility] Address: [address] [address] Performed By: #### 2 4323-8, 3083-1 ####[facility] [id number] [address] ALP [Catalytic activity/Vol] 109 U/L Normal 34-123 [facility] Comment on above: Order Comment: Speci men Type: BLOOD SPECIMENOrdering Facility: [facility] Address: [address] [address] Performed By: #### 2 4323-8, 3083- ####[facility] [id number] [address] ALT With P-5'-P [Catalytic activity/Vol] 16 U/L Normal 7-38 [facility] Comment on above: Order Comment: Speci men Type: BLOOD SPECIMENOrdering Facility: [facility] Address: [address] [address] Performed By: #### 2 4323-8, 3083- ####[facility] [id number] [address] Anion gap [Moles/Vol] 14 mmol/L Normal 9-18 [facility] Comment on above: Order Comment: Speci men Type: BLOOD SPECIMENOrdering Facility: [facility] Address: [address] [address] Performed By: #### 2 4323-8, 3083- ####[facility]IA [id number] [address] STATES OF [facility] AST With P-5'-P [Catalytic activity/Vol] 25 U/L Normal 13-35 [facility] Comment on above: Order Comment: Speci men Type: BLOOD SPECIMENOrdering Facility: [facility] Address: [address] [address] Performed By: #### 2 4323-8, 3083-1 ####[facility]IA [id number] [address] [place] Bilirubin [Mass/Vol] 0.4 mg/dL Normal 0.2-1.3 [facility] Comment on above: Order Comment: Speci men Type: BLOOD SPECIMENOrdering Facility: [facility] Address: [address] [place] [address] Performed By: #### 2 4323-8, 308-1 ####[facility]IA [id number] [place] [address] [place] Calcium [Mass/Vol] 9.7 mg/dL Normal 8.5-10.2 [facility] Comment on above: Order Comment: Speci men Type: BLOOD SPECIMENOrdering Facility: [facility] Address: [address] [place] [address] Performed By: #### 2 4323-8, 3083- ####[facility]IA [id number] [place] [address] [place] Chloride [Moles/Vol] 101 mmol/L Normal 97-105 [facility] Comment on above: Order Comment: Speci men Type: BLOOD SPECIMENOrdering Facility: [facility] Address: [address] [place] [address] Performed By: #### 2 4323-8, 3083- ####[facility]IA [id number] [address] [place] CO2 [Moles/Vol] 23 mmol/L Normal 22-30 [facility] Comment on above: Order Comment: Speci men Type: BLOOD SPECIMENOrdering Facility: [facility] Address: [address] [place] [address] Performed By: #### 2 4323-8, 3083-1 ####[facility]IA [id number] [place] [address] [place] Creatinine [Mass/Vol] 0.89 mg/dL Normal 0.58-0.96 [facility] Comment on above: Order Comment: Speci men Type: BLOOD SPECIMENOrdering Facility: [facility] Address: [address] [place] [address] Performed By: #### 2 4323-8, 3083-1 ####[facility] [id number] [address] ESTIMATED GLOMERULAR FILTRATION RATE 68 mL/min/1.73m??? Normal >=60 [facility] Comment on above: Order Comment: Leland orozco Type: BLOOD SPECIMENOrdering Facility: [facility] Address: [address] [place] [address] Result Comment: Sally mated Glomerular Filtration Rate [...] GFR. Performed By: #### 2 4323-8, 30805-20 ####[facility] [id number] [place] [address] [place] Glucose [Mass/Vol] 115 mg/dL High 74-99 [facility] Comment on above: Order Comment: Leland orozco Type: BLOOD SPECIMENOrdering Facility: [facility] Address: [address] [place] [address] Result Comment: The [place] [employer] (ADA) provides guidance for cutoff [...] Standards of Medical Care in Diabetes 2016, [place] [employer]. Diabetes Care. 2016.39(Suppl 1). Performed By: #### 2 4323-8, 308- ####[facility]IA [id number] [place] [address] [place] Potassium [Moles/Vol] 4.0 mmol/L Normal 3.7-5.1 [facility] Comment on above: Order Comment: Speci men Type: BLOOD SPECIMENOrdering Facility: [facility] Address: [address] [place] [address] Performed By: #### 2 4323-8, 3084-1 ####[facility]ORYCLIA [id number] [place] [address] [place] Protein [Mass/Vol] 7.6 g/dL Normal 6.3-8.0 [facility] Comment on above: Order Comment: Speci men Type: BLOOD SPECIMENOrdering Facility: [facility] Address: [address] [place] [address] Performed By: #### 2 4323-8, 3084-1 ####[facility]ORYCLIA [id number] [place] [address] [place] Sodium [Moles/Vol] 138 mmol/L Normal 136-144 [facility] Comment on above: Order Comment: Speci men Type: BLOOD SPECIMENOrdering Facility: [facility] Address: [address] [place] [address] Performed By: #### 2 4323-8, 3084-1 ####[facility]ORYCLIA [id number] [place] [address] [place] Urea nitrogen [Mass/Vol] 17 mg/dL Normal 7-21 [facility] Comment on above: Order Comment: Speci men Type: BLOOD SPECIMENOrdering Facility: [facility] Address: [address] [place] [address] Performed By: #### 2 4323-8, 3084-1 ####[facility]ORYCLIA [id number] [place] [address] [place] Cyclic citrullinated peptide IgG Qnon 05-06-2021 CCP ANTIBODY IGG QUALITATIVE Negative Normal Negative [facility] Comment on above: Order Comment: Speci men Type: BLOOD SPECIMENOrdering Facility: [facility] Address: [address] [place] [address] Performed By: #### 3 3935-8, DNAAB ####[facility] LABCLIA [id number] [address] [place] DNA ANTIBODY DS BLDon 2021 DNA ANTIBODY <12 Normal <30 [facility] Comment on above: Order Comment: Speci men Type: BLOOD SPECIMENOrdering Facility: [facility] Address: [address] [place] [address] Result Comment: Nega tive for ds DNA Anitbodies. <30 IU/mL Negative 30-74 IU/mL Equivocal >74 IU/mL Positive Performed By: #### 3 3935-8, DNAAB ####[facility] LABCLIA [id number] [address] [place] FELICE SM IgG Ser-aCncon 2021 Parr extractable nuclear IgG Qn (S) <0.2 Normal <1.0 [facility] Comment on above: Order Comment: Speci men Type: BLOOD SPECIMENOrdering Facility: [facility] Address: [address] [place] [address] Performed By: #### 1 8323-6 ####[facility] LABCLIA [id number] [address] [place] HBV core Ab Ser Qlon 022 HBV core Ab Ql (S) Negative Normal Negative [facility] Comment on above: Order Comment: Speci men Type: BLOOD SPECIMENOrdering Facility: [facility] Address: [address] [place] [address] Result Comment: No e vidence of current or past infection with Hepatitis B virus. Should recent infection be suspected, repeat testing may be considered 3-4 weeks after this draw. Performed By: #### 1 6933-4 ####[facility] LABCLIA [id number] [address] [place] HBV surface Ab IA Ql (S)on 0 05-06-2021 HBV surface Ag Ql (S) Negative Normal Negative [facility] Comment on above: Order Comment: Speci men Type: BLOOD SPECIMENOrdering Facility: [facility] Address: [address] [place] [address] Performed By: #### 1 0900-9 ####[facility]ORYCLIA [id number] [address] [place] HBV surface Ab Ser-aCncon HBV surface Ab Qn (S) 3.47 mIU/mL Normal <10.00 [facility] Comment on above: Order Comment: Speci men Type: BLOOD SPECIMENOrdering Facility: [facility] Address: [address] [place] [address] Result Comment: Aleyda ent is considered not to have protective immunity to HBV infection. Performed By: #### 1 6935-9 ####[facility]ORYCLIA [id number] [address] [place] HCV Ab Ser Qlon 05-06-2021 HCV Ab Ql (S) Negative Normal Negative [facility] Comment on above: Order Comment: Millyi men Type: BLOOD SPECIMENOrdering Facility: [facility] Address: [address] [place] [address] Performed By: #### 1 6128-1 ####[facility]ORYCLIA [id number] [address] [place] RHEUMATOID FACTOR BLon 05-06 Rheumatoid factor Qn [IU]/mL Normal <16 [facility] Comment on above: Order Comment: Speci men Type: BLOOD SPECIMENOrdering Facility: [facility] Address: [address] [place] [address] Performed By: #### R F ####[facility] LABCLIA [id number] [facility] [id number] [place] [address] [place] Parr extractable nuclear Ig G Qn (S)on 05-06-2021 SM ANTIBODY QUAL Negative Normal Negative [facility] Comment on above: Order Comment: Speci men Type: BLOOD SPECIMENOrdering Facility: [facility] Address: [address] [place] [address] Result Comment: Anti -Sm (Parr) antibody is used as an aid in diagnosis of systemic lupus erythematosus and its presence is associated with renal disease. A negative result cannot rule out systemic lupus erythematosus. Clinical correlation is required. Test Methodology: Multiplex flow immunoassay. Performed By: #### 1 8323-6 ####[facility] LABCLIA [id number] [address] [place] Urate SerPl-mCncon 2 Urate [Mass/Vol] 6.6 mg/dL Normal 2.5-6.6 [facility] Comment on above: Order Comment: Speci men Type: BLOOD SPECIMENOrdering Facility: [facility] Address: [address] [place] [address] Performed By: #### 2 4323-8, 3084-1 ####[facility] [id number] [address] [place] VITAMIN D 25 HYDROXYon 05-06 25-hydroxyvitamin D3 [Mass/Vol] 30.5 ng/mL Normal 30.0-100.0 [facility] Comment on above: Order Comment: Speci pam Type: BLOOD SPECIMENOrdering Facility: [facility] Address: [address] [place] [address] Result Comment: Clas sification of 25 [place] Vitamin D status: Deficiency: <= 20.0 ng/ml. Insufficientcy: 21.0-29.0 ng/ml. Sufficiency: >= 30.0 ng/ml. Performed By: #### V ITD ####[facility]ORYCLIA [id number] [address] [place] XR CERVICAL 2V [...] DISEASE FROM C3-C7. DIFFUSE FACET DEGENERATIVE CHANGES. Formula Mixer: Proficiency Transcribe Date/Time: May 06 2021 11:20A Dictated by : SEE MACKEY MD This examination was interpreted and the report reviewed and electronically signed by: SEE MACKEY MD on May 06 2021 11:22AM EST [id number] Normal [facility] XR FOOT 3V AP/LAT/OBL LTon 0 [...] and/or partial tearing Bilateral hands: Degenerative changes Formula Mixer: [facility] Transcribe Date/Time: May 09 2021 1:15P Dictated by : JUDAH CARDENAS MD This examination was interpreted and the report reviewed and electronically signed by: JUDAH CARDENAS MD on May 09 2021 1:39PM EST [id number] Normal [facility] XR FOOT 3V AP/LAT/OBL RTon 0 [...] and/or partial tearing Bilateral hands: Degenerative changes Formula Mixer: BILL Transcribe Date/Time: May 09 2021 1:15P Dictated by : JUDAH CARDENAS MD This examination was interpreted and the report reviewed and electronically signed by: JUDAH CARDENAS MD on May 09 2021 1:39PM EST [id number] Normal [facility] XR HAND 3V PA/LAT/OBL LTon 0 [...] and/or partial tearing Bilateral hands: Degenerative changes Formula Mixer: BILL Transcribe Date/Time: May 09 2021 1:15P Dictated by : JUDAH CARDENAS MD This examination was interpreted and the report reviewed and electronically signed by: JUDAH CARDENAS MD on May 09 2021 1:39PM EST [id number] Normal [facility] XR HAND 3V PA/LAT/OBL RTon 0 [...] and/or partial tearing Bilateral hands: Degenerative changes Formula Mixer: BILL Transcribe Date/Time: May 09 2021 1:15P Dictated by : JUDAH CARDENAS MD This examination was interpreted and the report reviewed and electronically signed by: JUDAH CARDENAS MD on May 09 2021 1:39PM EST [id number] Normal [facility] XR HIP 3V PELV+ AP/LAT LTon [...] 3V PELV+ AP/LAT LT Laterality: RIGHT (accession [id number]), NOT APPLICABLE (accession [id number]) Number of different views (projections): 3 (accession [id number]), 2 (accession [id number]) COMPARISON: None RESULT: Right hip: Hip joint [...] CHANGES OF LEFT HIP.. NORMAL SACROILIAC JOINTS Formula Mixer: BILL Transcribe Date/Time: May 06 2021 11:22A Dictated by : SEE MACKEY MD This examination was interpreted and the report reviewed and electronically signed by: SEE MACKEY MD on May 06 2021 11:26AM EST [id number] Normal [facility] XR HIP 3V PELV+ AP/LAT RTon [...] 3V PELV+ AP/LAT LT Laterality: RIGHT (accession [id number]), NOT APPLICABLE (accession [id number]) Number of different views (projections): 3 (accession [id number]), 2 (accession [id number]) COMPARISON: None RESULT: Right hip: Hip joint [...] CHANGES OF LEFT HIP.. NORMAL SACROILIAC JOINTS Formula Mixer: PSCB Transcribe Date/Time: May 06 2021 11:22A Dictated by : SEE MACKEY MD This examination was interpreted and the report reviewed and electronically signed by: SEE MACKEY MD on May 06 2021 11:26AM EST [id number] Normal [facility] XR KNEE SURVEY 1V AP BILon [...] nail in the left tibia. IMPRESSION: CHONDROCALCINOSIS. Formula Mixer: BILL Transcribe Date/Time: May 06 2021 11:19A Dictated by : SEE MACKEY MD This examination was interpreted and the report reviewed and electronically signed by: SEE MACKEY MD on May 06 2021 11:20AM EST [id number] Normal [facility] XR LUMBAR 2V AP/LATon 2021 XR [...] FACET DISEASE IN THE LOWER LUMBAR SPINE. Formula Mixer: BILL Transcribe Date/Time: May 06 2021 11:26A Dictated by : SEE MACKEY MD This examination was interpreted and the report reviewed and electronically signed by: SEE MACKEY MD on May 06 2021 11:29AM EST [id number] Normal [facility] XR SI JTS 2V AP PELV/FERGUSO [...] 3V PELV+ AP/LAT LT Laterality: RIGHT (accession [id number]), NOT APPLICABLE (accession [id number]) Number of different views (projections): 3 (accession [id number]), 2 (accession [id number]) COMPARISON: None RESULT: Right hip: Hip joint [...] CHANGES OF LEFT HIP.. NORMAL SACROILIAC JOINTS Formula Mixer: PSCB Transcribe Date/Time: May 06 2021 11:22A Dictated by : SEE MACKEY MD This examination was interpreted and the report reviewed and electronically signed by: SEE MACKEY MD on May 06 2021 11:26AM EST [id number] Normal [facility] cCP IgG SerPl-aCncon 022 Cyclic citrullinated peptide IgG Qn <15 Normal <20 [facility] Comment on above: Order Comment: Speci men Type: BLOOD SPECIMENOrdering Facility: [facility] Address: [address] [place], [place] [address] Performed By: #### 3 3935-8, DNAAB ####[facility] LABCLIA [id number] [place] [address] [place] Basophil percentageon 2021 Bilirubin [Mass/Vol] 0.60 mg/dL 0.20-1.00 [facility] Work Phone: Comment on above: For patients on eltr ombopag therapy, use of Dimension [place] TBIL is not recommended. Chloride [Moles/Vol] 107 mmol/L 98-107 [facility] Work Phone: Cholesterol [Mass/Vol] 234 mg/dL <200 [facility] Work Phone: Comment on above: <200 mg/dL Desirable 200-240 mg/dL Borderline >240 mg/dL High Risk Glucose [Mass/Vol] 94 mg/dL 74-106 [facility] Work Phone: Potassium [Moles/Vol] 4.3 mmol/L 3.5-5.1 [facility] Work Phone: Protein [Mass/Vol] 7.4 g/dL 6.4-8.2 [facility] Work Phone: Sodium [Moles/Vol] 137 mmol/L 136-145 [facility] Work Phone: Triglyceride [Mass/Vol] 180 mg/dL [facility] Work Phone: Comment on above: The drugs N-Acetylcy steine and Metamizole may falsely depress this assay.Serum Triglycerides Reference Interval Normal <150 mg/dL Borderline high 150 - 199 mg/dL High 200 - 499 mg/dL Very High > or = 500 mg/dL Laboratory - Chemistry and C hemistry - challengeon 04-29-2021 ALP [Catalytic activity/Vol] 105 U/L 45-117 [facility] Work Phone: ALT [Catalytic activity/Vol] 23 U/L 13-56 [facility] Work Phone: CO2 [Moles/Vol] 25.0 mmol/L 21.0-32.0 [facility] Work Phone: Free T4 [Mass/Vol] 1.16 ng/dL 0.76-1.46 [facility] Work Phone: Globulin (S) [Mass/Vol] 3.9 g/dL 2.2-4.2 [facility] Work Phone: Urea nitrogen/Creatinine [Mass ratio] 19.1 mg/mg 10-20 [facility] Work Phone: No Panel Informationon 04-29 Estimated GFR (MDRD) Amer 70 mL/min >60 [facility] Work Phone: Comment on above: GFR Calc Estimated GFR (MDRD) Non-Af Amer 58 mL/min >60 [facility] Work Phone: Comment on above: Non- GFR Calc Free Triiodothyronine (T3) pg/dL 2.4 pg/mL 2.18-3.98 [facility] Work Phone: Thyroid Stimulating Hormone (TSH) 1.42 uIU/mL 0.358-3.74 [facility] Work Phone: Serum or plasma albumin iris urement (mass/volume)on 04-29-2021 Albumin [Mass/Vol] 3.5 g/dL 3.2-5.0 [facility] Work Phone: Serum or plasma albumin/glob ulin mass ratioon 04-29-2021 Albumin/Globulin [Mass ratio] 0.9 {ratio} 0.9-2.4 [facility] Work Phone: Serum or plasma calcium iris urement (mass/volume)on 04-29-2021 Calcium [Mass/Vol] 9.5 mg/dL 8.5-10.1 [facility] Work Phone: Serum or plasma cholesterol in HDL measurement (mass/volume)on 04-29-2021 Cholesterol in HDL [Mass/Vol] 47 mg/dL [facility] Work Phone: Comment on above: The drugs N-Acetylcy steine and Metamizole may falsely depress this assay. Reference Range HDL <40 mg/dL Low HDL Cholesterol HDL >or= 60 mg/dL High HDL Cholesterol Serum or plasma cholesterol in VLDL measurement (mass/volume)on 04-29-2021 Cholesterol in VLDL [Mass/Vol] 36 mg/dL 5-40 [facility] Work Phone: Serum or plasma creatinine m easurement (mass/volume)on 04-29-2021 Creatinine [Mass/Vol] 1.00 mg/dL 0.55-1.02 [facility] Work Phone: Comment on above: The validity of the calculated GFR & GFRAA in patients over 70 years has not been determined. Clinical correlation is essential. Serum or plasma low density lipoprotein (LDL) cholesterol measurement (mass/volume)on 04-29-2021 Cholesterol in LDL [Mass/Vol] 151 mg/dL 0-130 [facility] Work Phone: Serum or plasma urea nitroge n measurement (mass/volume)on 04-29-2021 Urea nitrogen [Mass/Vol] 19 mg/dL 7-18 [facility] Work Phone: Thin prep Papanicolaou smear with manual screeningon 04-29-2021 Thin prep Papanicolaou smear with manual screening 22 U/L 15-37 [facility] Work Phone: Thin prep Papanicolaou smear with manual screening 5 5-15 [facility] Work Phone: Office Visit: evaluation act inic lesions right lower cheek and nasal dorsumon 07-24-2016 Dietary management education, guidance, and counseling (procedure) yes Invalid Interpretation Code [facility] Work Phone: [phone] Documentation of current medications (procedure) Done Invalid Interpretation Code [facility] Work Phone: [phone] Fall risk assessment No Invalid Interpretation Code [facility] Work Phone: [phone] Protein mass conc Done [facility] Work Phone: [phone] Tobacco smoking status NHIS Never Invalid Interpretation Code [facility] Work Phone: [phone] Tobacco smoking status NHIS Never smoker [facility] Work Phone: [phone] Tobacco use CPHS Never smoker Invalid Interpretation Code [facility] Work Phone: [phone] Office Visit: evaluation act inic lesions lt ear, rt nasal ala, and rt cheekon 05-15-2016 Dietary management education, guidance, and counseling (procedure) yes Invalid Interpretation Code [facility] Work Phone: [phone] Documentation of current medications (procedure) Done Invalid Interpretation Code [facility] Work Phone: [phone] Fall risk assessment No Invalid Interpretation Code [facility] Work Phone: [phone] Tobacco smoking status NHIS Never Invalid Interpretation Code [facility] Work Phone: [phone] Tobacco use CPHS Never smoker Invalid Interpretation Code [facility] Work Phone: [phone] Office Visit: 6 mo f/u - PHQ 9 Completeon 12-28-2015 Adolescent depression screening assessment Adolescent depression screening assessment Invalid Interpretation Code [facility] Work Phone: [phone] Adult depression screening assessment Adult depression screening assessment Invalid Interpretation Code [facility] Work Phone: [phone] PHQ-9 quick depression assessment panel [Reported.PHQ] Adult depression screening assessment [facility] Work Phone: [phone] Lab Report: CBC W/Diff, Auto matedon 12-18-2015 Basophils/100 leukocytes 0.7 % Invalid Interpretation Code 0-1 [facility] Work Phone: [phone] Basophils/100 WBC (Bld) 0.7 % 0-1 [facility] Work Phone: [phone] Eosinophils/100 leukocytes 2.2 % Invalid Interpretation Code 0-5 [facility] Work Phone: [phone] Eosinophils/100 WBC (Bld) 2.2 % 0-5 [facility] Work Phone: [phone] Erythrocyte distribution width Ratio (RBC) 44.1 fL High 35.1-43.9 [facility] Work Phone: [phone] Erythrocyte distribution width Ratio (RBC) 13.3 % 11.6-14.6 [facility] Work Phone: [phone] Erythrocytes (RBC) 4.58 10*6/uL Invalid Interpretation Code 4.2-5.4 [facility] Work Phone: [phone] Hematocrit (HCT) 42.7 % Invalid Interpretation Code 37-47 [facility] Work Phone: [phone] Hematocrit Volume Fraction (Bld) 42.7 % 37-47 [facility] Work Phone: [phone] Hemoglobin (HGB) 13.9 g/dL Invalid Interpretation Code 12.0-15.0 [facility] Work Phone: [phone] Immature granulocytes #/vol (Bld) 0.000 % 0.0-0.9 [facility] Work Phone: [phone] immature granulocytes, percentage of total cells, blood 0.000 % Invalid Interpretation Code 0.0-0.9 [facility] Work Phone: [phone] Lymphocytes 1.75 X10 3/UL Invalid Interpretation Code 0.83-4.51 [facility] Work Phone: [phone] Lymphocytes #/vol (Bld) 1.75 X10 3/UL 0.83-4.51 [facility] Work [phone] Lymphocytes/100 leukocytes 21.5 % Invalid Interpretation Code 19-41 [facility] Work Phone: [phone] Lymphocytes/100 [...] MCV 93.2 fL Invalid Interpretation Code 81-99 [facility] Work Phone: [phone] MCV [...] Neutrophils #/vol (Bld) 5.5 X10 3/UL 2.0-7.7 [facility] Work Phone: [phone] Neutrophils/100 leukocytes 68.1 % Invalid Interpretation Code 47-70 [facility] Work Phone: [phone] Neutrophils/100 WBC (Bld) 68.1 % 47-70 [facility] Work Phone: [phone] Platelet mean volume Entitic volume (Bld) 12.1 fL High 6.2-12.0 [facility] Work Phone: [phone] Platelets 230 10*3/mm3 Invalid Interpretation Code 150-450 [facility] Work Phone: [phone] Platelets #/vol (Bld) 230 10*3/mm3 150-450 [facility] Work Phone: [phone] PMV by [place] 12.1 fL High 6.2-12.0 [facility] Work Phone: [phone] RBC #/vol (Bld) 4.58 10*6/uL 4.2-5.4 [facility] Work Phone: [phone] RDW-CA 13.3 % Invalid Interpretation Code 11.6-14.6 [facility] Work Phone: [phone] red blood cell distribution width, size density 44.1 fL High 35.1-43.9 [facility] Work Phone: [phone] WBC #/vol (Bld) 8.1 10*3/uL 4.4-11.0 [facility] Work Phone: [phone] WBC (Leukocytes) 8.1 10*3/uL Invalid Interpretation Code 4.4-11.0 [facility] Work Phone: [phone] Lab Report: [facility] 12-18-2015 Alanine aminotransferase (ALT) 25 U/L Invalid Interpretation Code 12-78 [facility] Work Phone: [phone] Albumin 3.8 g/dL Invalid Interpretation Code 3.4-5.0 [facility] Work Phone: [phone] Albumin/Globulin Ratio 1 {ratio} Invalid Interpretation Code 0.9-2.4 [facility] Work Phone: [phone] Alkaline phosphatase (ALP) 104 U/L Invalid Interpretation Code 50-136 [facility] Work Phone: [phone] ALP enzyme act/vol (Bld) 104 U/L 50-136 [facility] Work Phone: [phone] Anion gap 8 mmol/L Invalid Interpretation Code 5-15 [facility] Work Phone: [phone] Anion gap molar conc 8 mmol/L 5-[address] [facility] Work Phone: [phone] Aspartate aminotransferase (AST) 24 U/L Invalid Interpretation Code 15-37 [facility] Work Phone: [phone] Bilirubin (total) 0.50 mg/dL Invalid Interpretation Code 0.20-1.00 [facility] Work Phone: [phone] BUN/Creatinine Ratio 18.3 RATIO Invalid Interpretation Code 10-20 [facility] Work Phone: [phone] Calcium 9.1 mg/dL Invalid Interpretation Code 8.5-10.1 [facility] Work Phone: [phone] Chloride 105 mmol/L Invalid Interpretation Code 98-107 [facility] Work Phone: [phone] CO2 26.0 mmol/L Invalid Interpretation Code 21.0-32.0 [facility] Work Phone: [phone] CO2 ppres (BldV) 26.0 mmol/L 21.0-32.0 [facility] Work Phone: [phone] Creatinine 0.87 mg/dL Invalid Interpretation Code 0.55-1.20 [facility] Work Phone: [phone] eGFR (non-black) 83 mL/min/{1.73_m2} Invalid Interpretation Code >60 [facility] Work Phone: [phone] eGFR (non-black) 68 mL/min/{1.73_m2} Invalid Interpretation Code >60 [facility] Work Phone: [phone] EST GFR - AA 83 mL/min >60 [facility] Work Phone: [phone] Globulin 3.7 g/dL High 2.3-3.5 [facility] Work Phone: [phone] Globulin mass conc (S) 3.7 g/dL High 2.3-3.5 [facility] Work Phone: [phone] Glucose 89 mg/dL Invalid Interpretation Code 70-110 [facility] Work Phone: [phone] Glucose mass conc 89 mg/dL 70-110 [facility] Work Phone: [phone] Potassium 4.3 mmol/L Invalid Interpretation Code 3.5-5.1 [facility] Work Phone: [phone] Protein 7.5 g/dL Invalid Interpretation Code 6.4-8.2 [facility] Work Phone: [phone] Sodium 139 mmol/L Invalid Interpretation Code 136-145 [facility] Work Phone: [phone] Urea nitrogen 16 mg/dL Invalid Interpretation Code 7-18 [facility] Work Phone: [phone] Lab Report: LDHon 12-18-2015 lactate dehydrogenase - serum 232 U/L Invalid Interpretation Code 84-246 [facility] Work Phone: [phone] LDH 232 U/L 84-246 [facility] Work Phone: [phone] Lab Report: Lipid Profileon 12-18-2015 Cholesterol 190 mg/dL Invalid Interpretation Code 200 [facility] Work Phone: [phone] HDL Cholesterol 50 mg/dL Invalid Interpretation Code [facility] Work Phone: [phone] LDL Cholesterol 111 mg/dL Invalid Interpretation Code 0-130 [facility] Work Phone: [phone] Triglyceride 147 mg/dL Invalid Interpretation Code [facility] Work Phone: [phone] very low density lipoproteins 29 mg/dL Invalid Interpretation Code 5-40 [facility] Work Phone: [phone] Lab Report: Magnesiumon 11-20 Magnesium 2.0 mg/dL Invalid Interpretation Code 1.8-2.4 [facility] Work Phone: [phone] Lab Report: Thyroid Stim Hor marycarmen (TSH)on 12-18-2015 Thyroid stimulating hormone (TSH) 1.67 u[iU]/mL Invalid Interpretation Code 0.358-3.74 [facility] Work Phone: [phone] Lab Report: Uric Acidon 11-20 Urate 4.6 mg/dL Invalid Interpretation Code 2.6-6.0 [facility] Work Phone: [phone] Microbiology: Culture, Fungu s w/ [id number] 08-13-2015 CUFST . [facility] Work Phone: [phone] GE use only - for [employer] import when terms are not otherwise specified . Invalid Interpretation Code [facility] Work Phone: [phone] Lab Report: CBC W/Diff, Auto - EPLAB Onlyon 04-22-2014 Absolute Neut 6.3 X10 3/UL 2.0-7.7 [facility] Work Phone: [phone] Absolute Neutrophil count 6.3 X10 3/UL Invalid Interpretation Code 2.0-7.7 [facility] Work Phone: [phone] Replaced Document: LDHon Lactate dehydrogenase (LDH) 216 U/L Normal 87-241 [facility] Work Phone: [phone] Lab Report: VITDon 4 vitamin D 25-hydroxy, serum [id number] ng/mL Normal Units converted. See lab report for original value. [facility] Work Phone: [phone] VITD [id number] ng/mL Normal Units converted. See lab report for original value. [facility] Work Phone: [phone] Lab Report: B12on 06-25-2013 Cobalamin (Vitamin B12) mass conc 600 pg/mL Normal 211-911 [facility] Work Phone: [phone] vitamin b12, serum 600 pg/mL Normal 211-911 [facility] Work Phone: [phone] Lab Report: FERon 06-24-2013 Ferritin 505 ng/mL High 8-252 [facility] Work Phone: [phone] Lab Report: FOLon 06-24-2013 Folate 18.20 ng/mL High 3.1-17.5 [facility] Work Phone: [phone] Lab Report: IBCon 06-24-2013 Iron 60 ug/dL Normal 50-170 [facility] Work Phone: [phone] iron binding capacity, total 259 ug/dL Normal 250-450 [facility] Work Phone: [phone] Vital Signs Date Time Vital Sign Value Performing Clinician Facility 11-14-2024 07:43-0400 Body mass index (BMI) [Ratio] 23.9 kg/m2 Dr. Jesus Peters MD Work Phone: [facility] 11-14-2024 07:43-0400 Body weight 73.[address] Jesus Peters MD Work Phone: [facility] 11-14-2024 07:43-0400 Diastolic blood pressure 79 mm[Hg] Dr. Jesus Peters MD Work Phone: [facility] 11-14-2024 07:43-0400 Heart rate 87 /min Dr. Jesus Peters MD Work Phone: [facility] 11-14-2024 07:43-0400 Respiratory rate 18 /min Dr. Jesus Peters MD Work Phone: [facility] 11-14-2024 07:43-0400 SaO2% (BldA) [Mass fraction] 100 % Dr. Jesus Peters MD Work Phone: [facility] 11-14-2024 07:43-0400 Systolic blood pressure 126 mm[Hg] Dr. Jesus Peters MD Work Phone: [facility] 12-03-2023 15:24-0400 Body height 172.7 cm Kamila Mercado MD Work Phone: [facility] 12-03-2023 15:24-0400 Body mass index (BMI) [Ratio] 25.79 kg/m2 Kamila Mercado MD Work Phone: [facility] 12-03-2023 15:24-0400 Body temperature 96.01 [degF] Kamila Mercado MD Work Phone: [facility] 12-03-2023 15:24-0400 Body weight 76.93 kg Kamila Mercado MD Work Phone: [facility] 12-03-2023 15:24-0400 Diastolic blood pressure 78 mm[Hg] Kamila Mercado MD Work Phone: [facility] 12-03-2023 15:24-0400 Heart rate 106 /min Kamila Mercado MD Work Phone: [facility] 12-03-2023 15:24-0400 SaO2% (BldA) [Mass fraction] 97 % Kamila Mercado MD Work Phone: [facility] 12-03-2023 15:24-0400 Systolic blood pressure 138 mm[Hg] Kamila Mercado MD Work Phone: [facility] 11-12-2023 15:57-0400 Body height 170.2 cm Kamila Mercado MD Work Phone: [facility] 11-12-2023 15:57-0400 Body mass index (BMI) [Ratio] 26.47 kg/m2 Kamila Mercado MD Work Phone: [facility] 11-12-2023 15:57-0400 Body temperature 98.1 [degF] Kamila Mercado MD Work Phone: [facility] 11-12-2023 15:57-0400 Body weight 76.66 kg Kamila Mercado MD Work Phone: [facility] 11-12-2023 15:57-0400 Diastolic blood pressure 84 mm[Hg] Kamila Mercado MD Work Phone: [facility] 11-12-2023 15:57-0400 Heart rate 85 /min Kamila Mercado MD Work Phone: [facility] 11-12-2023 15:57-0400 SaO2% (BldA) [Mass fraction] 96 % Kamila Mercado MD Work Phone: [facility] 11-12-2023 15:57-0400 Systolic blood pressure 141 mm[Hg] Kamila Mercado MD Work Phone: [facility] 01-09-2023 08:12-0500 Body height 175.[address] Jesus Peters Work Phone: [facility] 01-09-2023 08:12-0500 Body mass index (BMI) [Ratio] 25.4 kg/m2 Dr. Jesus Peters Work Phone: [facility] 01-09-2023 08:12-0500 Body weight 78.[address] Jesus Peters Work Phone: [facility] 12-15-2022 13:10-0400 Diastolic blood pressure 66 mm[Hg] Kamila Mercado MD Work Phone: [facility] 12-15-2022 13:10-0400 Heart rate 60 /min Kamila Mercado MD Work Phone: [facility] 12-15-2022 13:10-0400 Respiratory rate 16 /min Kamila Mercado MD Work Phone: [facility] 12-15-2022 13:10-0400 SaO2% (BldA) [Mass fraction] 96 % Kamila Mercado MD Work Phone: [facility] 12-15-2022 13:10-0400 Systolic blood pressure 145 mm[Hg] Kamila Mercado MD Work Phone: [facility] 12-15-2022 11:39-0400 Body temperature 97.7 [degF] Kamila Mercado MD Work Phone: [facility] 08-07-2022 12:43-0400 Body weight 76.84 kg Pacc 2 Work Phone: [facility] 08-07-2022 12:43-0400 Diastolic blood pressure 74 mm[Hg] Pacc 2 Work Phone: [facility] 08-07-2022 12:43-0400 Heart rate 72 /min Pacc 2 Work Phone: [facility] 08-07-2022 12:43-0400 Respiratory rate 18 /min Pacc 2 Work Phone: [facility] 08-07-2022 12:43-0400 SaO2% (BldA) [Mass fraction] 95 % Pac 2 Work Phone: [facility] 08-07-2022 12:43-0400 Systolic blood pressure 156 mm[Hg] Pac 2 Work Phone: [facility] 11-22-2021 14:36-0400 Body height 175.[address] Jesus Peters Work Phone: [facility] 11-22-2021 14:36-0400 Body mass index (BMI) [Ratio] 25.4 kg/m2 Dr. Jesus Peters Work Phone: [facility] 11-22-2021 14:36-0400 Body weight 78.[address] Jesus Peters Work Phone: [facility] 11-22-2021 14:36-0400 Diastolic blood pressure 74 mm[Hg] Dr. Jesus Peters Work Phone: [facility] 11-22-2021 14:36-0400 Heart rate 90 /min Dr. Jesus Peters Work Phone: [facility] 11-22-2021 14:36-0400 Respiratory rate 16 /min Dr. Jesus Peters Work Phone: [facility] 11-22-2021 14:36-0400 SaO2% (BldA) [Mass fraction] 99 % Dr. Jesus Peters Work Phone: [facility] 11-22-2021 14:36-0400 Systolic blood pressure 121 mm[Hg] Dr. Jesus Peters Work Phone: [facility] 02-09-2021 09:25-0500 Heart rate 89 /min Dr. Jesus Peters Work Phone: [facility] Work Phone: 02-09-2021 09:25-0500 Respiratory rate 17 /min Dr. Jesus Peters Work Phone: [facility] Work Phone: 02-09-2021 09:25-0500 SaO2% (BldA) [Mass fraction] 98 % Dr. Jesus Peters Work Phone: [facility] Work Phone: 02-09-2021 07:51-0500 Body height 175.[address] Jesus Peters Work Phone: [facility] Work Phone: 02-09-2021 07:51-0500 Body mass index (BMI) [Ratio] 25.7 kg/m2 Dr. Jesus Peters Work Phone: [facility] Work Phone: 02-09-2021 07:51-0500 Body temperature 98.2 [degF] Dr. Jesus Peters Work Phone: [facility] Work Phone: 02-09-2021 07:51-0500 Body weight 79.[address] Jesus Peters Work Phone: [facility] Work Phone: 02-09-2021 07:51-0500 Diastolic blood pressure 92 mm[Hg] Dr. Jesus Peters Work Phone: [facility] Work Phone: 02-09-2021 07:51-0500 Systolic blood pressure 167 mm[Hg] Dr. Jesus Peters Work Phone: [facility] Work Phone: 01-31-2021 12:20-0500 Body mass index (BMI) [Ratio] 26.6 kg/m2 Dr. Jesus Peters Work Phone: [facility] Work Phone: 01-31-2021 12:20-0500 Body weight 77.[address] Jesus Peters Work Phone: [facility] Work Phone: 01-31-2021 12:20-0500 Diastolic blood pressure 83 mm[Hg] Dr. Jesus Peters Work Phone: [facility] Work Phone: 01-31-2021 12:20-0500 Heart rate 76 /min Dr. Jesus Peters Work Phone: [facility] Work Phone: 01-31-2021 12:20-0500 Respiratory rate 18 /min Dr. Jesus Peters Work Phone: [facility] Work Phone: 01-31-2021 12:20-0500 SaO2% (BldA) [Mass fraction] 99 % Dr. Jesus Peters Work Phone: [facility] Work Phone: 01-31-2021 12:20-0500 Systolic blood pressure 129 mm[Hg] Dr. Jesus Peters Work Phone: [facility] Work Phone: 07-24-2016 13:12-0400 BMI (Body Mass Index) 27.43 kg/m2 Mason Link MD [facility] Work Phone: 07-24-2016 13:12-0400 Body Temperature 97.9 [degF] Mason Link MD [facility] Work Phone: 07-24-2016 13:12-0400 BSA (Body Surface Area) 1.96 m2 Mason Link MD [facility] Work Phone: 07-24-2016 13:12-0400 Height 172.72 cm Mason Link MD [facility] Work Phone: 07-24-2016 13:12-0400 Pulse (Heart Rate) 75 /min [facility] Work Phone: 07-24-2016 13:12-0400 Respiratory Rate 16 /min Mason Link MD [facility] Work Phone: 07-24-2016 13:12-0400 Weight 81.83 kg Mason Link MD [facility] Work Phone: 05-15-2016 13:08-0400 BMI (Body Mass Index) 27.4 kg/m2 Mason Link MD [facility] Work Phone: 05-15-2016 13:08-0400 Body Temperature 98.1 [degF] Mason Link MD [facility] Work Phone: 05-15-2016 13:08-0400 BP Diastolic 77 mm[Hg] Mason Link MD [facility] Work Phone: 05-15-2016 13:08-0400 BP Systolic 127 mm[Hg] Mason Link MD [facility] Work Phone: 05-15-2016 13:08-0400 BSA (Body Surface Area) 1.96 m2 Mason Link MD [facility] Work Phone: 05-15-2016 13:08-0400 Height 172.72 cm Mason Link MD [facility] Work Phone: 05-15-2016 13:08-0400 Pulse (Heart Rate) 89 /min Mason Link MD [facility] Work Phone: 05-15-2016 13:08-0400 Pulse Oximetry 96 % Mason Link MD [facility] Work Phone: 05-15-2016 13:08-0400 Respiratory Rate 16 /min Mason Link MD [facility] Work Phone: 05-15-2016 13:08-0400 Weight 81.74 kg Mason Link MD [facility] Work Phone: 12-28-2015 13:26-0500 Height 172.72 cm Msaon Link MD [facility] Work Phone: 12-28-2015 13:26-0500 Weight 77.36 kg Mason Link MD [facility] Work Phone: 12-29-2014 13:03-0500 Body Temperature 97.59 [degF] Mason Link MD [facility] Work Phone: Encounters Encounter Date Encounter Type Care Provider Facility Start: 12-11-2024 ambulatory Leah Pearce TRANSPORTATION DISPATCHER Facili ty:[facility] Start: 11-14-2024 End: 11-14-2024 Patient encounter procedure Leah MORFIN -[facility] Work Phone: Start: 11-14-2024 End: 11-14-[address] Jesus Peters MD Work Phone: -[facility] Start: 10-06-2024 End: 10-06-[address] Jesus Peters MD Work Phone: -[facility] Start: 10-06-2024 End: 10-06-[address] Jesus Peters MD -Laboratory [facility] Start: 10-06-2024 End: 10-06-2024 ambulatory Jesus Peters Facility:[facility] Start: 06-05-2024 End: 06-05-[address] Jesus Peters MD Work Phone: [facility] Work Phone: Start: 06-05-2024 End: 06-05-[address] Jesus Peters MD -Laboratory Work Phone: Start: 06-05-2024 End: 06-05-2024 ambulatory Jesus Peters Facility:[facility] Start: 05-20-2024 End: 05-20-[address] Jesus Peters MD Work Phone: [facility] Work Phone: Start: 05-20-2024 End: 05-20-[address] [facility] Start: 05-20-2024 End: 05-20-2024 ambulatory Erwin Wiley Facility:[facility] Start: 04-03-2024 End: 04-03-[address] [facility] Start: 04-03-2024 End: 04-03-2024 ambulatory Erwin Wiley Facility:[facility] Start: 03-20-2024 End: 03-20-[address] [facility] Start: 03-20-2024 End: 03-20-2024 ambulatory Jesus Peters Facility:[facility] Start: 03-11-2024 End: 05-08-2024 Telephone encounter Kamila Mercado MD Work Phone: General Surgery Comment on above: Results Release Of [facility] (Imaging) Start: 03-04-2024 End: 03-04-2024 ambulatory KAMILA MERCADO Facility:[facility] Start: 03-04-2024 End: 03-04-2024 Subsequent hospital visit by physician [facility] ([facility]-Stat) Work Phone: Cat Scan Comment on above: Lung nodules [R91.8] Start: 01-10-2024 End: 01-10-2024 [facility] Jesus Peters Facility:[facility] Start: 12-28-2023 End: 12-28-2023 [facility] Jesus Peters Facility:[facility] Start: 12-03-2023 End: 12-03-2023 ambulatory KAMILA MERCADO Facility:[facility] Start: 12-03-2023 End: 12-03-2023 Patient encounter procedure Kamila Mercado MD Work Phone: General Surgery Comment on above: Lung nodules (Primar y Dx); Abnormal chest CT Start: 11-26-2023 End: 11-26-2023 ambulatory JESUS PETERS Facility:[facility] Start: 11-26-2023 End: 11-26-2023 Subsequent hospital visit by physician [facility] ([facility]) Work Phone: Cat Scan Comment on above: History of left [address] cancer [Z85.3] Start: 11-12-2023 End: 11-12-2023 ambulatory KAMILA MERCADO Facility:[facility] Start: 11-12-2023 End: 11-12-2023 Patient encounter procedure Kamila Mercado MD Work Phone: General Surgery Comment on above: Mass of left chest w all (Primary Dx); History of left breast cancer; Status post mastectomy, bilateral Start: 05-21-2023 End: 05-21-2023 ambulatory [facility] Work Phone: Start: 05-21-2023 End: 05-21-2023 Patient encounter procedure [facility] Start: 02-21-2023 End: 02-21-[address] Jesus Peters Work Phone: [facility] Work Phone: Start: 02-21-2023 End: 02-21-[address] Jesus Peters Work Phone: [facility] Start: 01-09-2023 End: 01-09-[address] Jesus Peters Work Phone: [facility] Work Phone: Start: 01-05-2023 Non-patient / Non-visit Dr. Denver Peters Work Phone: [facility] Start: 01-05-2023 End: 01-05-[address] Jesus Peters Work Phone: [facility] Work Phone: Start: 01-05-2023 End: 01-05-[address] Jesus Peters Work Phone: [facility] Work Phone: Start: 12-15-2022 End: 12-15-2022 Subsequent hospital visit by physician Kamila Mercado MD Work Phone: Ambulatory Surgery Comment on above: Screening for colon cancer [Z12.11] Start: 12-13-2022 End: 12-13-[address] Jesus Peters Work Phone: [facility] Work Phone: Start: 12-13-2022 End: 12-13-[address] Jesus Peters Work Phone: [facility] Work Phone: Start: 12-13-[address] [facility] Start: 11-27-2022 End: 11-27-2022 Patient encounter procedure Kamila Mercado MD Work Phone: General Surgery Comment on above: Pigmented skin lesio n of uncertain behavior of lower extremity (Primary Dx) Start: 11-27-2022 End: 11-27-[address] [facility] Start: 11-24-2022 Telephone encounter Kamila Hirsch MD Work Phone: General Surgery Comment on above: Medication Problem Start: 11-13-2022 [facility] Start: 11-08-2022 End: 11-08-2022 ambulatory [facility] Work Phone: Start: 11-08-2022 End: 11-08-2022 [facility] Start: 09-15-2022 End: 09-15-2022 Patient encounter procedure [facility] Work Phone: Start: 08-31-2022 End: 08-31-2022 ambulatory [facility]:[id number] Start: 08-24-2022 End: 08-24-2022 ambulatory [facility] Work Phone: Start: 08-24-2022 End: 08-24-2022 Patient encounter procedure [facility] Start: 08-24-2022 Telephone encounter Esthela Jimenez RN Pre Anesthesia Comment on above: PreOp Call Start: 08-10-2022 Telephone encounter Esthela Jimenez RN Pre Anesthesia Comment on above: PreOp Call Start: 08-07-2022 End: 08-07-2022 Subsequent hospital visit by physician Xr [facility] 3 [facility] Comment on above: Hypertension, unspec ified type [I10] Start: 08-07-2022 Encounter for other preprocedural examination [facility] Start: 08-07-2022 Encounter for preprocedural cardiovascular examination JESUS [facility] Start: 08-07-2022 End: 08-07-2022 [facility] Work Phone: [facility] Start: 08-07-2022 End: 08-08-2022 ambulatory JESUS PETERS [...] Dx) Start: 05-12-2022 End: 05-12-2022 ambulatory [facility] Work Phone: Start: 05-12-2022 End: 05-12-2022 Patient encounter procedure [facility] Start: 03-01-2022 End: 03-01-[address] Jesus Peters Work Phone: [facility] Work Phone: Start: 03-01-2022 End: 03-01-[address] Jesus Peters Work Phone: [facility] Start: 01-26-2022 End: 01-26-[address] Jesus Peters Work Phone: [facility]Cat Scan, [facility] Start: 12-21-2021 End: 12-21-[address] Jesus Peters Work Phone: [facility] Work Phone: Start: 12-21-2021 End: 12-21-[address] Jesus Peters Work Phone: [facility] - [facility] Start: 11-22-2021 End: 11-22-[address] Jesus Peters Work Phone: [facility] Start: 07-01-2021 Telephone encounter Irasema eduardo MD Work Phone: [facility] Comment on above: Results Start: 05-31-2021 End: 05-31-2021 ambulatory Irasema Vela MD Work Phone: [facility] Comment on above: Osteoporosis, unspec ified osteoporosis type, unspecified pathological fracture presence (Primary Dx); Primary osteoarthritis involving multiple joints Start: 05-31-2021 End: 05-31-2021 Telemedicine consultation with patient Irasema Vela MD Work Phone: [facility] Start: 05-20-2021 End: 05-20-[address] [facility] Start: 05-13-2021 Telephone encounter Irasema eduardo MD Work Phone: [facility] Comment on above: Patient Question Start: 05-13-[address] Jesus [facility] Start: 05-10-2021 End: 05-10-[address] Jesus Peters Work Phone: [facility] Start: 04-29-2021 End: 04-29-[address] Jesus Peters Work Phone: [facility], [facility] Start: 02-15-[address] Jesus Peters Work Phone: [facility]Cat [facility], [facility] Start: 02-09-2021 End: 02-09-2021 Emergency department patient visit Dr. Jesus Peters Work Phone: [facility] Start: 01-31-2021 End: 01-31-[address] Jesus Peters Work Phone: [facility] Procedures Date Procedure Procedure Detail Performing Clinician Start: 12-15-2022 Colonoscopy flx dx w/collj spec when pfrmd Kamila Mercado MD Work Phone: Start: 11-27-2022 SURGICAL PATHOLOGY Ethan Mercado MD Work Phone: Start: 09-15-2022 Radiologic examinati on of knee Start: 08-07-2022 End: 08-07-2022 Antibody screen Pac 2 Work Phone: Comment on above: Order Comment: Speci men Type: BLOOD SPECIMEN Ordering Facility: [facility] Address: [address] [place] [id number] Performed By: #### T [id number] #### [facility] CLIA [id number] [address] [place] [address] Start: 08-07-2022 Radiologic exam ches t 2 [...] Link MD Start: 04-07-2015 Screening mammography Mammogra [facility] screening for breast cancer Mason Link [...] 08-25-2013 End: 08-26-2013 *CMP Complete Metabolic Panel [facility] Eric Alam Work Phone: Start: 08-25-2013 End: [...] 06-24-2013 End: 06-27-2013 Bacteria anaerobode culture Mason iLnk MD Start: 06-24-2013 End: 06-27-2013 Bacterica wound [...] DTaP,Tdap,Td Vaccine (2 - Td or Tdap) [facility] Start: 08-07-2025 DIABETES SCREEN DIABETES SCREEN [facility] Start: 08-07-2025 Diabetes Screening Diabetes Screenin g [facility] Start: 05-06-2024 DIABETES SCREEN DIABETES SCREEN [facility] Start: 03-04-2024 End: 01-01-2025 CT Chest WO contrast [facility] Work Phone: Comment on above: Expected: 03/04/2024 , Expires: 01/01/2025 Start: 03-04-2024 End: 03-04-2024 Patient encounter procedure 03/04/2024 8:00 AM EST Appointment Cat Scan [address] [place] [address] CT CHEST Cat Scan Comment on above: CT CHEST Start: 02-20-2024 Advance Directive Discussion Advance Directive Discussion [facility] Start: 12-10-2023 End: 12-10-2023 Patient encounter procedure 12/10/2023 8:30 AM EDT Office Visit General Surgery [address] [place] [id number] Kamila Mercado MD [address] [place] [id number] CT COLLOW UP General Surgery Comment on above: CT COLLOW UP Start: 11-26-2023 End: 11-26-2023 Patient encounter procedure 11/26/2023 8:00 AM EDT Appointment Cat Scan [address] [place] [id number] 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] Cat Scan Comment on above: 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] Start: 11-12-2023 End: 02-11-2024 CREATININE BLD CREATININE BLD Lab Routine Mass of left chest wall Expected: 11/12/2023, Expires: 02/11/2024 [facility] Comment on above: Expected: 11/12/2023 , Expires: 02/11/2024 Start: 10-21-2023 Covid-19 Vaccine ( season) Covid-19 Vaccine () [facility] Start: 10-21-2023 Influenza vaccination Influenza Vacc ine (#1) [facility] Start: 02-19-2023 Advance Directive Discussion Advance Directive Discussion [facility] Start: 10-20-2022 Covid-19 Vaccine ( season) Covid-19 Vaccine ( season) [facility] Start: 10-20-2022 Influenza vaccination [facility] Start: 03-19-2022 Covid-19 Vaccine (7 - Pfizer series) Covid-19 Vaccine (7 - Pfizer series) [facility] Start: 02-19-2022 ADVANCE DIRECTIVE DISCUSSION ADVANCE DIRECTIVE DISCUSSION [facility] Start: 02-19-2022 DEPRESSION ASSESSMENT DEPRESSION ASS ESSMENT [facility] Start: 11-09-2021 Colonoscopy COLONOSCOPY [facility] Start: 11-09-2021 COLORECTAL CANCER SCREENING COLORECTAL CANCER SCREENING [facility] Start: 02-19-2021 ADVANCE DIRECTIVE DISCUSSION ADVANCE DIRECTIVE DISCUSSION [facility] Start: 02-09-2021 Simple repair f/e/e/n/l/m 2.5cm/< RPR F/E/E/N/L/M 2.5 CM/< [facility] Work Phone: Start: 01-06-2021 COVID-19 VACCINE (5 - Booster for Pfizer series) COVID-19 VACCINE (5 - Booster for Pfizer series) [facility] Start: 10-29-2016 LIPID SCREEN LIPID SCREEN [facility] Start: 09-28-2016 End: 09-28-2016 Appointment Appointment [facility] Work Phone: Start: 07-24-2016 End: 07-24-2016 Appointment Appointment [facility] Work Phone: Start: 07-24-2016 End: 09-18-2016 Follow Up Appt 2 months Follow Up Appt 2 months [facility] Work Phone: Start: 06-13-2016 End: 12-28-2015 *CBC w/Diff - oncology ONLY *CBC w/Diff - oncology ONLY [facility] Work Phone: Start: 06-13-2016 End: 12-28-2015 *CMP Complete Metabolic Panel *CMP Complete Metabolic Panel [facility] Work Phone: Start: 06-13-2016 End: 12-28-2015 Lactate dehydrogenase (LDH) *LDH -LDH (Lactate Dehydrogenase) [facility] Work Phone: Start: 06-13-2016 End: 12-28-2015 Magnesium *Magnesium [facility] Work Phone: Start: 06-13-2016 End: 12-28-2015 Urate *Uric Acid Blood [facility] Work Phone: Start: 05-15-2016 End: 06-08-2016 Follow Up Appt 2 months Follow Up Appt 2 months [facility] Work Phone: Start: 12-28-2015 End: 06-29-2015 *CBC with Differential *CBC with Differential [facility] Work Phone: Start: 12-28-2015 End: 06-29-2015 *CMP Complete Metabolic Panel *CMP Complete Metabolic Panel [facility] Work Phone: Start: 12-28-2015 End: 06-29-2015 Lactate dehydrogenase (LDH) *LDH -LDH (Lactate Dehydrogenase) [facility] Work Phone: Start: 12-28-2015 End: 06-29-2015 Magnesium *Magnesium [facility] Work Phone: Start: 12-28-2015 End: 06-29-2015 Urate *Uric Acid Blood [facility] Work Phone: Start: 11-15-2015 End: 12-12-2015 Follow Up Appt 6 months Follow Up Appt 6 months [facility] Work Phone: Start: 09-13-2015 [...] 2014 *CBC with Differential *CBC with Differential [facility] Work Phone: Start: 06-29-2015 End: 06-30-2015 *CMP Complete Metabolic Panel *CMP Complete Metabolic Panel [facility] Work Phone: Start: 06-29-2015 End: 06-29-2015 Lactate dehydrogenase (LDH) *LDH -LDH (Lactate Dehydrogenase) [facility] Work Phone: Start: 06-29-2015 End: 06-29-2015 Urate *Uric Acid Blood [facility] Work Phone: Start: 05-14-2015 End: 07-14-2015 Follow Up Appt Other Follow Up Appt Other [facility] Work Phone: Start: 04-07-2015 End: 04-07-2015 Mammogram, one breast Mammography; unilateral [facility] Work Phone: Start: 12-29-2014 End: 10-19-2014 *CBC with Differential *CBC with Differential [facility] Work Phone: Start: 12-29-2014 End: 12-22-2014 *CMP Complete Metabolic Panel *CMP Complete Metabolic Panel [facility] Work Phone: Start: 12-29-2014 End: 12-22-2014 Lactate dehydrogenase (LDH) *LDH -LDH (Lactate Dehydrogenase) [facility] Work Phone: Start: 12-29-2014 End: 12-22-2014 Urate *Uric Acid Blood [facility] Work Phone: Start: 10-07-2014 End: 10-19-2014 Follow Up Appt Other Follow Up Appt Other [facility] Work Phone: Start: 04-22-2014 End: 04-16-2014 *CBC with Differential *CBC with Differential [facility] Work Phone: Start: 04-03-2014 End: 10-19-2014 Follow Up Appt 6 months Follow Up Appt 6 months [facility] Work Phone: Start: 02-03-2014 End: 03-20-2014 Follow Up Appt Other Follow Up Appt Other [facility] Work Phone: Start: 10-31-2013 End: 03-20-2014 Follow Up Appt 3 months Follow Up Appt 3 months [facility] Work Phone: Start: 10-07-2013 [...] 1 month Follow Up Appt 1 month [facility] Work Phone: Start: 08-25-2013 End: 08-25-2013 *CBC with Differential *CBC with Differential [facility] Work Phone: Start: 08-25-2013 End: 08-25-2013 *CMP Complete Metabolic Panel *CMP Complete Metabolic Panel [facility] Work Phone: Start: 08-25-2013 End: 08-25-2013 Lactate dehydrogenase (LDH) *LDH -LDH (Lactate Dehydrogenase) [facility] Work Phone: Start: 08-25-2013 End: 08-25-2013 Urate *Uric Acid Blood [facility] Work Phone: Start: 08-12-2013 End: 08-12-2013 Echo exam of abdomen US Abdomen, limited [facility] Work Phone: Start: 08-12-2013 End: 08-12-2013 Follow Up Appt 1 month Follow Up Appt 1 month [facility] Work Phone: Start: 07-21-2013 End: 07-21-2013 Ct abdomen w/o & w/dye CT Abdomen with and without Contrast [facility] Work Phone: Start: 07-21-2013 End: 07-21-2013 Follow up Appt 3 weeks Follow up Appt 3 weeks [facility] Work Phone: Start: 07-07-2013 End: 07-07-2013 Follow Up Appt 2 weeks Follow Up Appt 2 weeks [facility] Work Phone: Start: 06-24-2013 End: 06-27-2013 Bacteria anaerobode culture *CUAN - Culture, Anaerobic, Any Source [facility] Work Phone: Start: 06-24-2013 End: 06-27-2013 Bacterica wound culture *CUW - Culture, Wound (Aerobic) [facility] Work Phone: Start: 06-24-2013 End: 06-27-2013 Follow Up Appt 2 weeks Follow Up Appt 2 weeks [facility] Work Phone: Start: 06-10-2013 End: 06-27-2013 Follow Up Appt 2 weeks Follow Up Appt 2 weeks [facility] Work Phone: Start: 05-30-2013 End: 06-27-2013 Follow up Appt 1 week Follow up Appt 1 week [facility] Work Phone: Start: 05-26-2013 End: 05-28-2013 Follow Up Appt Other Follow Up Appt Other [facility] Work Phone: Start: 05-05-2013 End: 05-06-2013 Follow Up Appt Other Follow Up Appt Other [facility] Work Phone: Start: 11-30-2011 PNEUMOVAX AGE 65 AND OVER WITH 5YR LOOKBACK (#1) PNEUMOVAX AGE 65 AND OVER WITH 5YR LOOKBACK (#1) [facility] Start: 02-08-2011 Screening for osteoporosis Bone Density Screening [facility] Start: 2010 Pneumococcal Vaccine : 65+ (2 - PCV) Pneumococcal Vaccine: 65+ (2 - PCV) [facility] Start: 11-25-2009 End: 12-06-2009 Mammogram, Screening, both breasts Mammogram, Screening, both breasts [facility] Work Phone: Start: 11-30-2007 PNEUMOCOCCAL: 65+ (2 - PCV) PNEUMOCOCCAL: 65+ (2 - PCV) [facility] Start: 08-05-2007 SHINGRIX VACCINE (2 of 3) SHINGRIX VACCINE (2 of 3) [facility] Start: 2005 RSV Vaccine (1 - 1-d ose 60+ series) RSV Vaccine (1 - 1-dose 60+ series) [facility] Start: 1990 COLOGUARD (FIT-DNA) COLOGUARD (FIT-D NA) [facility] Start: [address] COLONOGRAPHY [facility] Start: 1990 FECAL OCCULT BLOOD FECAL OCCULT BLOO D [facility] Start: 1990 [facility] Start: 1964 Urine microalbumin profile [facility] Start: 12-31-1963 ANNUAL PCP TEAM RN EMBEDDED LAKSHMI DISEASE VISIT ANNUAL PCP TEAM CHRONIC DISEASE VISIT [facility] Start: 12-31-1963 Anxiety Screening Anxiety Screening [facility] Start: 12-31-1963 BP CONTROLLED (<130/80) BP CONTROLLE D (<130/80) [facility] Start: 12-31-1963 Depression Screening Depression Scre ening [facility] Start: 1957 Adult depression screening assessment DEPRESSION SCREENING [facility] End: 12-11-2024 CT Chest W contrast IV CT CHEST W IVCON Radiology Routine Mass of left chest wall 1 Occurrences starting 11/12/2023 until 12/11/2024 [facility] Work Phone: Comment on above: 1 Occurrences starti ng 11/12/2023 until 12/11/2024 End: 12-11-2024 CT Chest WO contrast CT CHEST WO IVCON Radiology Routine History of left breast cancer 1 Occurrences starting 11/12/2023 until 12/11/2024 [facility] Comment on above: 1 Occurrences starti ng 11/12/2023 until 12/11/2024 CT Chest WO contrast CT CHEST WO IVCON Radiology Routine History of left breast cancer 11/26/2023 8:32 AM EDT [facility] Work Phone: [facility] Work Phone: Patient referral [facility] Work Phone: [facility] Immunizations Immunization Date Immunization Notes Care Provider Reagan murillo 11-13-2022 influenza virus vacc ine, unspecified formulation Kamila Mercado MD Work Phone: [facility] 02-09-2021 tetanus toxoid, redu melvin diphtheria toxoid, and acellular pertussis vaccine, adsorbed Dr. Jesus Peters Work Phone: [facility] 05-13-2020 Covid (Pfizer) Dr. Jesus watts Work Phone: [facility] 04-22-2020 Covid (Pfizer) Dr. Jesus watts Work Phone: [facility] 11-19-[address] Jesus Peters Work Phone: [facility] 11-19-[address] Ramonita Peters Work Phone: [facility] Work Phone: 11-19-2012 pneumococcal vaccine , unspecified formulation Dr. Jesus Peters Work Phone: [facility] 12-26-2010 influenza virus vacc ine, unspecified formulation Irasema Vela MD Work Phone: [facility] 01-27-2009 novel influenza-H1N1 -09, all formulations Irasema Vela MD Work Phone: [facility] Work Phone: 11-23-2008 influenza virus vacc ine, unspecified formulation Irasema Vela MD Work Phone: [facility] Work Phone: 12-25-2007 influenza virus vacc ine, unspecified formulation Irasema Vela MD Work Phone: [facility] Work Phone: 06-10-2007 zoster vaccine, live Tatianna Vela MD Work Phone: [facility] Work Phone: 12-18-2006 influenza virus vacc ine, unspecified formulation Irasema Vela MD Work Phone: [facility] Work Phone: 11-29-2006 pneumococcal polysaccharide vaccine, 23 valent Irasema Vela MD Work Phone: [facility] Work Phone: Payers Date Payer Category Payer Self-pay [id number] 2023 Medicare (Managed Care) MMO [employer] HMO Member Subscriber Plan / Payer (Effective 2023-Present) Name: Maddison Rivera Relation to Subscriber: Self Name: Maddison Rivera Payer ID: Not on file Type: HMO Address: [address] [place] [id number] 2023 Medicare [id number] 2022 Medicare [id number] 2021 Medicare MMO MEDICARE MMO MEDADVANTAGE [id number] 2021-Present [phone] [address] [place] [id number] [facility] [id number] 2021 Medicare [id number] 2014 Unknown [id number] 2010 Medicare [id number] Medicare [id number] Unknown [id number] Unknown [id number] Unknown [id number] Unknown [id number] Unknown [id number] Unknown [id number] Unknown [id number] Unknown [id number] Unknown [id number] Unknown [id number] Unknown [id number] Unknown [id number] Social History Date Type Detail Facility Start: 01-09-[address] [facility] Start: 05-06-2021 Alcohol intake Current non-dr sales manager [place] of alcohol (finding) [facility] Start: 1945 Sex Assigned At Not on file [facility] Start: 04-26-2021 End: 05-06-2021 Exposure to SARS-CoV-2 (event) Not sure [facility] Start: 02-09-2021 End: 01-09-2023 Tobacco smoking status NHIS Unknown if ever smoked [facility] Start: 06-28-2019 None [facility] Start: 06-28-2019 Alone [facility] Start: 07-24-2019 Non-smoker [facility] Start: 1945 Sex Assigned At Female [facility] Start: 05-21-2021 End: 05-31-2021 Exposure to SARS-CoV-2 (event) Unable to assess [facility] Start: 07-28-2022 End: 12-03-2023 Alcohol intake Lifetime non-drinker (finding) [facility] Start: 01-25-2020 End: 11-20-2022 History of Social function [facility] Start: 01-25-2020 End: 11-20-2022 Tobacco use panel [facility] National Score (1-100), lower number is lower risk Not on file [facility] Start: 05-26-2024 End: 06-11-2024 Sex Female (finding) [facility] Medical Equipment Procedure Code Equipment Code Equipment [...] 06-27-2019 Reconstruction, breast, bilateral, using TRAM flap URMIAL [id number] HEMOSTAT ABS FDA Start: 06-27-2019 Reconstruction, [...] Stem Equinoxe 10 mm Humeral Sterile - [id number] Start: 08-31-2022 Plate Equinoxe Standard Glenoid Reverse - [id number] Start: 08-31-2022 Screw Equinoxe 4.5mm Black 22mm Bone Kit Compression Lock Cap Reverse - [id number] Start: 08-31-2022 Liner Equinoxe 3 8mm +2.5mm Humeral Reverse Shoulder - [id number] Start: 08-31-2022 Tray Equinoxe +0 mm Humeral Adapter Reverse Shoulder System - [id number] Start: 08-31-2022 Screw Equinoxe B one Lock Reverse Shoulder [place] - [id number] Start: 08-31-2022 Kit Screw Revers e Torque Define Shoulder - [id number] Start: 08-31-2022 Screw Equinoxe 4.5mm Black 22mm Bone Kit Compression Lock Cap Reverse - [id number] Start: 08-31-2022 Screw Equinoxe 4.5mm [place] 26mm Bone Kit Compression Lock Cap Reverse - [id number] Start: 08-31-2022 Screw Equinoxe 4.5mm Blue 30mm Bone Kit Compression Lock Cap Reverse - [id number] Start: 08-31-2022 Clinical Notes 05-17-2010 to 11-14-2024 Telephone Encounter - Lonnie Barba PSS - 03/12/2024 1:37 PM ESTTelephone Encounter - Lonnie Barba PSS - 03/12/2024 1:37 PM ESTTelephone Encounter - Brandi Carbajal - 03/11/2024 4:38 PM EST Note Date & Type Note Facility 11-14-2024 Progress note [facility] 03-12-2024 Telephone encounter Note CD READY FOR FIRE CONTROL MECHANIC AT [facility] [place] [facility] Pt knows [facility] 03-12-2024 Miscellaneous Notes CD READY FOR FIRE CONTROL MECHANIC AT [facility] [place] [facility] Pt knows Patient is requesting disc and reports of 03/04/24 CT chest and 11/25/24 CT chest. 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 OK to leave a detailed VM on cell phone [phone]. documented in this encounter [facility] 03-11-2024 Telephone encounter Note Patient is requesting disc and reports of 03/04/24 CT chest and 11/25/24 CT chest. 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 OK to leave a detailed VM on cell phone [phone]. [facility] 03-11-2024 Telephone encounter Note Spoke to Maddison - identifed by name and number. Told her results of chest CT. I have rec'd repeat CT scan in 6-12 months as per radiological recommendations. She states that she has noted a dry cough for years. I have recommended that she return to her PCP for possible workup. Patient acknowledges above. [facility] 03-11-2024 Miscellaneous Notes Spoke to Maddison - identifed by name and number. Told her results of chest CT. I have rec'd repeat CT scan in 6-12 months as per radiological recommendations. She states that she has noted a dry cough for years. I have recommended that she return to her PCP for possible workup. Patient acknowledges above. documented in this encounter [facility] 03-04-2024 History of Present illness Narrative Radiology [...] PATIENT PRESENTS WITH AN IMPLANTABLE OR ATTACHED TECHNICAL EDUCATION TEACHER: No RADIOLOGY DEPARTMENT: CT; Exam(s) Completed: Chest PERIPHERAL IV DATA: Not applicable SIGNED BY: RT Velia(R) March 04, 2024 10:31 AM documented in this encounter [facility] 03-04-2024 Note HNO ID: [id number] Author: SADIE MENCHACA RT(R) Service: ? Author Type: Recoverer Type: Progress Notes Filed: 03/04/2024 10:32 Note [...] PATIENT PRESENTS WITH AN IMPLANTABLE OR ATTACHED TECHNICAL EDUCATION TEACHER: No RADIOLOGY DEPARTMENT: CT; Exam(s) Completed: Chest PERIPHERAL IV DATA: Not applicable SIGNED BY: RT Velia(Pat) March 04, 2024 10:31 AM [facility] 12-03-2023 History of Present illness Narrative Maddison [...] OSTEOARTHRITIS DR VELA,IRASEMA PURE HYPERCHOLESTEROLEMIA 08/06/2006 DR PEETRS, Thyroid disease DR PETERS, Vitamin D deficiency [...] Macrocrystalline], Mobic [Meloxicam], Morphine, Nitrofurantoin, Penicillins, Prednisone, Zgyczxj-Wlx-Qmo Reductase Inhibitors, Sulfa (Sulfonamide Antibiotics), Zinc, and [...] Kamila Mercado MD documented in this encounter [facility] 12-03-2023 Note HNO ID: [id number] Author: KAMILA MERCADO MD Service: ? Author [...] Macrocrystalline], Mobic [Meloxicam], Morphine, Nitrofurantoin, Penicillins, Prednisone, Ybtbdhx-Xvp-Uoz Reductase Inhibitors, Sulfa (Sulfonamide Antibiotics), Zinc, and [...] the patient has (more content not included)... [facility] 11-26-2023 History of Present illness Narrative Radiology [...] PATIENT PRESENTS WITH AN IMPLANTABLE OR ATTACHED TECHNICAL EDUCATION TEACHER: No RADIOLOGY DEPARTMENT: CT; Exam(s) Completed: Chest PERIPHERAL IV DATA: Not applicable SIGNED BY: BILLY Gunn) November 26, 2023 1:11 PM documented in this encounter [facility] 11-26-2023 Note HNO ID: [id number] Author: SADIE MENCHACA RT(R) Service: ? Author Type: Recoverer Type: Progress Notes Filed: 11/26/2023 13:11 Note [...] PATIENT PRESENTS WITH AN IMPLANTABLE OR ATTACHED TECHNICAL EDUCATION TEACHER: No RADIOLOGY DEPARTMENT: CT; Exam(s) Completed: Chest PERIPHERAL IV DATA: Not applicable SIGNED BY: RT Velia(R) November 26, 2023 1:11 PM [facility] 11-12-2023 Note HNO ID: [id number] Author: KAMILA MERCADO MD Service: ? Author [...] she was seen by plastic surgery at [facility]. Recommendations were made for pain management [...] Macrocrystalline], Mobic [Meloxicam], Morphine, Nitrofurantoin, Penicillins, Prednisone, Njkornf-Jcx-Mvq Reductase Inhibitors, Sulfa (Sulfonamide Antibiotics), Zinc, and Zostavax [Zoster Vaccine Live (Pf)] The review of systems data was entered by the nurse and reviewed by ky Nursing Notes: Raquel Wadsworth LPN 11/12/2023 4:01 [...] blood. Gastrointestinal: The (more content not included)... [facility] 11-12-2023 History of Present illness Narrative Maddison [...] she was seen by plastic surgery at [facility]. Recommendations were made for pain management [...] Macrocrystalline], Mobic [Meloxicam], Morphine, Nitrofurantoin, Penicillins, Prednisone, Ynkwzcw-Jyw-Dwj Reductase Inhibitors, Sulfa (Sulfonamide Antibiotics), Zinc, and [...] records from other medical facilities such as [facility], nhum-kx-rrhg patient care, obtaining oral medical history from the patient in this encounter, performing a medically appropriate examination, counseling and educating the patient/family/caregiver, and ordering and/or scheduling of medications/tests/procedures, and completing appropriate medical documentation. Kamila Mercado MD documented in this encounter [facility] 11-12-2023 Nurse Note REVIEW OF SYSTEMS: General: [...] 2013 Last Colonoscopy: 2022 Raquel Wadsworth LPN [facility] 11-12-2023 Nurse Note REVIEW OF SYSTEMS: General: [...] Raquel Wadsworth LPN documented in this encounter [facility] 12-15-2022 Nurse Note Pt arrived in phase 2 fully awake in the supine position. Denies pain/ nausea. SR up x 2, call light in reach. Mariaelena Vazquez RN documented in this encounter [facility] 12-15-2022 History and physical note UPDATED PROCEDURAL [...] 2022 TIME: 11:56 AM Source Note - aKmila Mercado MD - 12/15/2022 12:00 PM EDT [...] Macrocrystalline], Mobic [Meloxicam], Morphine, Nitrofurantoin, Penicillins, Prednisone, Eukndlb-Xsg-Lhr Reductase Inhibitors, Sulfa (Sulfonamide Antibiotics), Zinc, and Zostavax [Zoster Vaccine Live (Pf)] PERSONAL HISTORY: SOCIAL HISTORY Social History Tobacco Use Smoking status: Never Smokeless tobacco: Never Vaping Use Vaping Use: Never used Substance Use Topics Alcohol use: Never Drug use: Never FAMILY HISTORY FAMILY HISTORY Problem Relation Age of Onset Colon Cancer Mother Hypertension Mother Diabetes Mother Lipids Mother Heart Father PR age 55 Lipids Brother Diabetes Sister Diabetes Brother Heart Brother The review of systems data was entered by the nurse and reviewed by ky Nursing Notes: Shasha Gilbert RN 11/20/2022 10:37 [...] Macrocrystalline], Mobic [Meloxicam], Morphine, Nitrofurantoin, Penicillins, Prednisone, Sxzewrt-Flw-Lfm Reductase Inhibitors, Sulfa (Sulfonamide Antibiotics), Zinc, and Zostavax [Zoster Vaccine Live (Pf)] PERSONAL HISTORY: SOCIAL HISTORY Social History Tobacco Use Smoking status: Never Smokeless tobacco: Never Vaping Use Vaping Use: Never used Substance Use Topics Alcohol use: Never Drug use: Never FAMILY HISTORY FAMILY HISTORY Problem Relation Age of Onset Colon Cancer Mother Hypertension Mother Diabetes Mother Lipids Mother Heart Father PR age 55 Lipids Brother Diabetes Sister Diabetes [...] Kamila Mercado MD documented in this encounter [facility] 11-27-2022 History of Present illness Narrative Maddison [...] Patient acknowledges above. documented in this encounter [facility] 11-27-2022 Instructions Kristyn Manning LPN - 11/27/2022 [...] from our office. documented in this encounter [facility] 11-27-2022 Nurse Note UNIVERSAL PROTOCOL / SAFETY [...] Kristyn Manning LPN documented in this encounter [facility] 11-24-2022 Miscellaneous Notes Images from the original [...] she needs the antibiotic called into [facility] in [place]. Advised patient that she should contact her orthopaedic surgeon, but she states Dr. Mercado gave me the antibiotics for my skin excision next week, so why would she not give me the antibiotic for my colonoscopy? Please update the patient. A detailed message may be left on her voicemail if she does not answer. Dali Bobo RN documented in this encounter [facility] 08-31-2022 Note HNO ID: [id number] Author: Jay Gamez APRN.CRNA Service: ? Author Type: Nurse Developmental Services Worker Type: Anesthesia Procedure Notes Filed: 08/31/2022 8:18 AM Note Text: ANESTHESIOLOGY PROCEDURE NOTE Airway General Information Procedure Start Time/Medication Administration: 08/31/2022 7:48 AM Procedure End Time: 08/31/2022 7:48 AM Patient location during procedure: OR Timeout Performed Pre-procedure: timeout performed Consent Obtained: Yes Patient identity confirmed: arm band Staffing FEED RESEARCH TECHNICIAN: Jay Gamez APRN.FEED RESEARCH TECHNICIAN Performed by: MADELINE Indications and Patient Condition [...] - 08/31/2022 7:48:00 AM SIGNATURE: Jay Gamez APRN.FEED RESEARCH TECHNICIAN PATIENT NAME: Maddison Rivera DATE: August 31, 2022 TIME: 8:17 AM CSN: [id number] [facility] 08-31-2022 Note HNO ID: [id number] Author: Caity Krueger RN Service: Nursing Author Type: Registered Nurse Type: Nursing Progress Note Filed: 08/31/2022 7:31 AM Note Text: Dr. Banuelos did left interscalene block with ultrasound from . [facility] 08-31-2022 Note HNO ID: [id number] Author: Christiano Banuelos MD Service: Anesthesiology Author [...] August 31, 2022 TIME: 7:03 AM CSN: [id number] [facility] 08-30-2022 Note HNO ID: [id number] Author: Gale Trivedi RN Service: ? Author [...] directed. Bring copy of Living Will/Power of Golf Coach. Do not smoke or chew. If you [...] the Surgery Center. UPON ARRIVAL: Access to [facility] ([facility]) is located on [address] Vocational Teacher parking is available for your convenience from [...] instructions for the morning of your procedure. [facility] 08-10-2022 Note HNO ID: [id number] Author: Loraine Claors APRN.ANA Service: ? Author Type: Nurse Practitioner Type: Progress Notes Filed: 08/10/2022 11:56 AM Note Text: Summary: medical clearance [facility] 08-07-2022 Note HNO ID: [id number] Author: Syl Tapia MD Service: ? Author [...] notes to review. She was seen by Senior Mortgage Loan Processor Ata 05/10. PAST MEDICAL HISTORY Diagnosis Date [...] Mother Diabetes Mother Lipids Mother Heart Father PR age 55 Lipids Brother Diabetes Sister Diabetes [...] Hives Prednisone Other: See Comments PH SYCOTIC Chcbrjx-Kzr-Fhw Red* Other: See Comments Myalgias Sulfa (Sulfonamide [...] 11.5 - 15.5 (more content not included)... [facility] 08-07-2022 Note HNO ID: [id number] Author: Syl Tapia MD Service: ? Author [...] instructions for the morning of your procedure. [facility] 08-07-2022 Note HNO ID: [id number] Author: Syl Tapia MD Service: ? Author [...] notes to review. She was seen by Senior Mortgage Loan Processor Ata 05/10. [facility] 08-07-2022 History of Present illness [...] notes to review. She was seen by Senior Mortgage Loan Processor Ata 05/10. PAST MEDICAL HISTORY Diagnosis Date [...] Mother Diabetes Mother Lipids Mother Heart Father PR age 55 Lipids Brother Diabetes Sister Diabetes [...] Hives Prednisone Other: See Comments PH SYCOTIC Pmmnkue-Pmn-Qhe Red* Other: See Comments Myalgias Sulfa (Sulfonamide [...] [facility] or Procedure: Answer: [facility] ECG COMPLETE Standing Status: Future Number [...] notes to review. She was seen by Senior Mortgage Loan Processor Ata 05/10. documented in this encounter [facility] 08-07-2022 Instructions Syl Tapia MD - 08/07/2022 [...] of your procedure. documented in this encounter [facility] 07-01-2021 Miscellaneous Notes Patient notified and verbalized understanding. Patient states she has not been called about an appt with Pain Management. Number given for Doctor Referral line, . Dalton Villa LPN ----- Message from Irasema Vela MD sent at 06/28/2021 12:39 PM EDT ----- Osteopenia on bmd - continue ca - vit d documented in this encounter [facility] 05-31-2021 Note HNO ID: [id number] Author: Irasema Vela MD Service: ? Author Type: Physician Type: Progress Notes Filed: 05/31/2021 1:00 PM Note Text: VIRTUAL VISIT PROGRESS NOTE This is a virtual visit using [employer] video visit. It required patient-provider interaction for [...] Mother - Lipids Mother - Heart Father PR age 55 - Lipids Brother - Diabetes [...] not taking: Reported on 07/29/2018 ) - Lindsay-3 Fatty Acids (FISH OIL) 500 mg Cap [...] - Penicillins Hives - Prednisone Unknown - Taqpadg-Hqt-Kut Red* Other: See Comments Myalgias - Sulfa (Sulfonamide * Other: See Comme (more content not included)... [facility] 05-31-2021 Instructions Irasema Vela MD - 05/31/2021 12:37 PM EDT documented in this encounter [facility] 05-31-2021 History of Present illness Narrative VIRTUAL VISIT PROGRESS NOTE This is a virtual visit using [employer] video visit. It required patient-provider interaction for [...] Mother Diabetes Mother Lipids Mother Heart Father PR age 55 Lipids Brother Diabetes Sister Diabetes [...] (Patient not taking: Reported on 07/29/2018 ) Lindsay-3 Fatty Acids (FISH OIL) 500 mg Cap [...] Vomiting Nitrofurantoin Vomiting Penicillins Hives Prednisone Unknown Lacqpja-Hsd-Pfu Red* Other: See Comments Myalgias Sulfa (Sulfonamide [...] due to technical difficulties. Irasema Vela MD [facility] on 05/31/21 CONSULT TO PAIN MGT No orders of the defined types were placed in this encounter. Platform used - 20 min on telephone documented in this encounter [facility] 05-13-2021 Miscellaneous Notes Patient called to make sure her BMD results were faxed to the office. Patient would like to know if she can have the results over the phone. Dalton Villa LPN documented in this encounter [facility] 05-06-2021 Note HNO ID: [id number] Author: RT Dinorah(R) Service: Radiology Author Type: [...] RT Dinorah(R) May 06, 2021 10:44 AM [facility] 05-06-2021 Note HNO ID: [id number] Author: Irasema Vela MD Service: ? Author [...] not taking: Reported on 07/29/2018 ) - Lindsay-3 Fatty Acids (FISH OIL) 500 mg Cap [...] taking: Reported on (more content not included)... [facility] 05-17-2010 History of Past i llness Narrative Problem Noted Date Resolved Date Pain in limb 05/17/2010 11/08/2011 documented as of this encounter (statuses as of 05/13/2021) [facility] History of Past illness Narrative* Problem Noted Date Resolved Date Pain in limb 05/17/2010 11/08/2011 documented as of this encounter (statuses as of 05/31/2021) [facility] History of Past illness Narrative* Problem Noted Date Resolved Date Pain in limb 05/17/2010 11/08/2011 documented as of this encounter (statuses as of 07/01/2021) [facility] History of Past illness Narrative* Problem Noted Date Resolved Date Pain in limb 05/17/2010 11/08/2011 documented as of this encounter (statuses as of 07/26/2022) [address]-2011 History of Past illness Narrative* Problem Noted Date Resolved Date Pain in limb 05/17/2010 11/08/2011 documented as of this encounter (statuses as of 08/08/2022) [address]2011 History of Past illness Narrative* Problem Noted Date Resolved Date Pain in limb 05/17/2010 11/08/2011 documented as of this encounter (statuses as of 08/08/2022) [address]2011 History of Past illness Narrative* Problem Noted Date Resolved Date Pain in limb 05/17/2010 11/08/2011 documented as of this encounter (statuses as of 08/18/2022) [address]2011 History of Past illness Narrative* Problem Noted Date Resolved Date Pain in limb 05/17/2010 11/08/2011 documented as of this encounter (statuses as of 08/25/2022) [address]2011 History of Past illness Narrative* Problem Noted Date Diagnosed Date Resolved Date Pain in limb 05/17/2010 11/08/2011 documented as of this encounter (statuses as of 11/25/2022) [place] [address]-2011 History of Past illness Narrative* Problem Noted Date Diagnosed Date Resolved Date Pain in limb 05/17/2010 11/08/2011 documented as of this encounter (statuses as of 11/29/2022) [place] [address]29-2011 History of Past illness Narrative* Problem Noted Date Diagnosed Date Resolved Date Pain in limb 05/17/2010 11/08/2011 documented as of this encounter (statuses as of 12/23/2022) [facility] Diagnosis Onset Date Resolution Status Essential hypertension acute Diastolic dysfunction chroni c Hyperlipidemia chronic [facility] Work Phone: evaluation note* Diagnosis Osteoporosis, unspecified osteoporosis type, unspecified pathological fracture presence- Primary Primary osteoarthritis involving multiple joints documented in this encounter [facility] note* Diagnosis Onset Date Resolution Status Essential hypertension acute Hyperlipidemia chronic [facility] Work Phone: evaluation noteNo assessment information available [facility] Work Phone: evaluation note* Diagnosis Acquired absence of breast and absent nipple, unspecified laterality- Primary 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, left shoulder (HCC) [facility]* Diagnosis Hypertension, unspecified type 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, left shoulder (HCC) [facility]* Diagnosis Preop cardiovascular exam- Primary Pre-operative cardiovascular examination Preop testing Preoperative examination, unspecified Hypertension, unspecified type 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, left shoulder (HCC) [facility]* Diagnosis Pigmented skin lesion of uncertain behavior of lower extremity- Primary [facility]* Diagnosis Screening for colon cancer- Primary Special screening for malignant neoplasms, colon [facility]* Diagnosis Onset Date Resolution Status Osteoarthritis of right knee acute Right knee pain acute [facility] Work Phone: evaluation note* Diagnosis Vitamin deficiency- Primary Unspecified vitamin deficiency VITAMIN D DEFICIENCY NOS Unspecified vitamin D deficiency PURE HYPERCHOLESTEROLEM Pure hypercholesterolemia HYPERTENSION NOS Unspecified essential hypertension Breast screening, unspecified Myalgia Mylagia and myositis, unspecified Mass of left chest wall- Primary History of left breast cancer Status post mastectomy, bilateral [facility] Diagnosis Vitamin deficiency- Primary Unspecified vitamin deficiency VITAMIN D DEFICIENCY NOS Unspecified vitamin D deficiency PURE HYPERCHOLESTEROLEM Pure hypercholesterolemia HYPERTENSION NOS Unspecified essential hypertension Breast screening, unspecified Myalgia Mylagia and myositis, unspecified History of left breast cancer [facility]* Diagnosis Vitamin deficiency- Primary Unspecified vitamin deficiency VITAMIN D DEFICIENCY NOS Unspecified vitamin D deficiency PURE HYPERCHOLESTEROLEM Pure hypercholesterolemia HYPERTENSION NOS Unspecified essential hypertension Breast screening, unspecified Myalgia Mylagia and myositis, unspecified Lung nodules- Primary Other nonspecific abnormal finding of lung field Abnormal chest CT Nonspecific (abnormal) findings on radiological and other examination of other intrathoracic organs [facility] Diagnosis Vitamin deficiency- Primary Unspecified vitamin deficiency VITAMIN D DEFICIENCY NOS Unspecified vitamin D deficiency PURE HYPERCHOLESTEROLEM Pure hypercholesterolemia HYPERTENSION NOS Unspecified essential hypertension Breast screening, unspecified Myalgia Mylagia and myositis, unspecified Lung nodules Other nonspecific abnormal finding of lung field [facility]* Diagnosis Onset Date Resolution Status Admit Date Essential hypertension acute Se pt2024 8:26am Hyperlipidemia chronic November 14, 2024 8:26am [facility] Work Phone: Progress note Author Leah Pearce [facility] Note Date/Time November 14, 2024 9:26am [facility] 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) Alemite Operator Required: No Is patient in pain?: No [...] prednisone Adverse Reaction (Verified 11/14/24 08:56) Other Ymejcga-KZP-DmB Reductase Inhibitor (Uejqwmh-Trb-Tpq Reductase Inhibitor) Adverse Reaction (Verified 11/14/24 08:56) [...] the past year?: No PFSH Medical History (Reviewed 11/14/24 @ 09:19 by Leah Pearce TRANSPORTATION DISPATCHER, TRANSPORTATION DISPATCHER-C) Osteoarthritis of right knee Right knee pain [...] (Updated 11/14/24 @ 09:19 by Leah Pearce TRANSPORTATION DISPATCHER, TRANSPORTATION DISPATCHER-C) History of left shoulder replacement History of mastectomy Status post left breast reconstruction History of excision of lesion Status post transverse rectus abdominis muscle (TRAM) flap breast reconstruction History of hysterectomy History of left breast biopsy History of Achilles tendon repair History of cholecystectomy Family History (Reviewed 11/14/24 @ 08:56 by Leah Pearce TRANSPORTATION DISPATCHER, TRANSPORTATION DISPATCHER-C) Mother Colon cancer Hypertension Diabetes Kidney disease Heart disease Father Heart disease Hyperlipidemia Kidney disease Myocardial infarction 62 Brother Myocardial infarction 68 Sister Myocardial infarction 40's Sister Myocardial infarction 40's Sister Myocardial infarction 40's Social History (Reviewed 11/14/24 @ 08:56 by Leah Pearce TRANSPORTATION DISPATCHER, TRANSPORTATION DISPATCHER-C) household members: none Smoking Status: Never smoker [...] of blood pressure readings in 1-2 weeks. [phone] Option #4. Plan Details Additional Comments: Patient [...] updated, as necessary. Follow Up: 4-6 weeks (TRANSPORTATION DISPATCHER/PA) Coding Level of Care Code Off vis,est,level [...] Cosigner Signature: Date (if applicable) CC: ~ [employer] Work Phone: Reason for referral (narrative)* Outpatient Procedure (Routine) - Closed Specialty Diagnoses / Procedures Referred By Contac t Referred To [facility] Diagnoses Preop testing Procedures ECG COMPLETE ECG ROUTINE ECG W/LEAST 12 LDS W/I&R Nayeli Perez MD [address] [place] [address] [facility] [place] [facility] [place] [address] Referral ID Status Reason Start Date Expiration Date V isits Requested Visits Authorized [id number] Closed Auto-Generate d Referral 08/07/2022 02/18/2023 1 1 [facility] for referral (narrative)* Outpatient Procedure (Routine) - Closed Specialty Diagnoses / Procedures Referred By Contac t Referred To Contact [facility] Diagnoses Screening for colon cancer Procedures COLONOSCOPY SCREENING COLONOSCOPY FLX DX W/COLLJ SPEC WHEN Kamila Sanchez MD [address] [place] [address] [facility] [address] [address] Referral ID Status Reason Start Date Expiration Date V isits Requested Visits Authorized [id number] Closed Auto-Generate d Referral 11/20/2022 11/21/2023 1 1 [facility] for referral (narrative)No reason for referral information [facility]Children[facility] Work Phone: [facility] Narrative* Outpatient Procedure (Routine) - Closed Specialty Diagnoses / Procedures Referred By Contac t Ref[facility] Diagnoses Preop testing Procedures ECG COMPLETE ECG ROUTINE ECG W/LEAST 12 LDS W/I&R Nayeli Perez MD [address] [place] [address] [facility] [place] [address] [place] [address] Referral ID Status Reason Start Date Expiration Date V isits Requested Visits Authorized [id number] Closed Auto-Generate d Referral 08/07/2022 02/18/2023 1 1 [facility] for visit Narrative* Outpatient Procedure (Routine) - Closed Specialty Diagnoses / Procedures Referred By Contac t Referred To Contact [facility] Diagnoses Screening for colon cancer Procedures COLONOSCOPY SCREENING COLONOSCOPY FLX DX W/COLLJ SPEC WHEN Kamila Sanchez MD [address] [place] [address] [facility] [address] [address] Referral ID Status Reason Start Date Expiration Date V isits Requested Visits Authorized [id number] Closed Auto-Generate d Referral 11/20/2022 11/21/2023 1 1 [facility] Advance Directives No Advanced Directives Records FoundDocuments on File Type Date Recorded 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 Advance Directive(s) Advance Directive Response Recorded Date/ Time Advance Directives No December 23, 2015 12:44pm Living Will Yes February 09, 021 9:55am Power of Golf Coach Yes February 09, 2021 9:55am Documents on File Type Date Recorded 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 Advance Directive(s) Advance Directive Response Recorded Date/ Time Advance Directives No December 23, 2015 11:44am Living Will Yes February 09 021 8:55am Power of Golf Coach Yes February 09, 2021 8:55am Latest Code [...] Admit Date HTN: last ov Nov 2021 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 ) November 14, 2024 [...] joints Procedures CONSULT TO PAIN MGT Irasema Veal MD [address] [address] Referral ID Status Reason Start Date Expiration Date Visits Requested Visits Authorized [id number] Ref Not Required PCP Requested Referral 05/31/2021 08/29/2021 3 3 Specialty Diagnoses / Procedures Referred By Contac t Referred To Contact PATIENT SERVICES Diagnoses Acquired absence of breast and absent nipple, unspecified laterality Procedures BREAST PROSTHESIS, MASTECTOMY BRA BREAST PROSTHESIS, MASTECTOMY BRA Cchs, Provider NON-STAFF PROVIDER [facility] [address] [place] [address] Referral ID Status Reason Start Date Expiration Date Visits Requested Visits Authorized [id number] Pending Review Auto-Generat ed Referral 07/25/2022 07/26/2023 1 1 Specialty Diagnoses / Procedures Referred By Contac t Referred To Contact PATIENT SERVICES Diagnoses Acquired absence of breast and absent nipple, unspecified laterality Procedures BREAST PROSTHESIS, SILICONE BREAST PROSTHESIS, SILICONE Cchs, Provider NON-STAFF PROVIDER [facility] [address] [place] [address] Referral ID Status Reason Start Date Expiration Date Visits Requested Visits Authorized [id number] Pending Review Auto-Generat ed Referral 07/25/2022 07/26/2023 1 1 Referral ID Status Reason Start Date Expiration Date Visits Requested Visits Authorized [id number] Pending Review Auto-Generat ed Referral 07/25/2022 07/26/2023 1 1 Specialty Diagnoses / Procedures Referred By Yani t Referred To Contact CT IMAGING Diagnoses Sarcoidosis of lung (HCC) Procedures CT CHEST WO IVCON DIAGNOSTIC COMPUTED TOMOGRAPHY THORAX W/O Kamila Smith MD [address] [place] [address] [place] [address] Referral ID Status Reason Start Date Expiration Date Visits Requested Visits Authorized [id number] Authorized Auto-Generat ed Referral 11/12/2023 12/11/2024 1 1 Specialty Diagnoses / Procedures Referred By Yani t Referred To Contact CT IMAGING Diagnoses Mass of left chest wall Procedures CT CHEST W IVCON DIAGNOSTIC COMPUTED TOMOGRAPHY THORAX W/CONTRAST Kamila Mercado MD [address] [place] [address] Ct Imaging [facility] Referral ID Status Reason Start Date Expiration Date Visits Requested Visits Authorized [id number] New Request Auto-Generat ed Referral 11/12/2023 12/11/2024 1 1 Specialty Diagnoses / Procedures Referred By Yani rossi Referred To Contact CT IMAGING Diagnoses Lung nodules Procedures CT CHEST WO IVCON DIAGNOSTIC COMPUTED TOMOGRAPHY THORAX W/O Kamila Smith MD [address] [place] [address] Ct Imaging [facility] Referral ID Status Reason Start Date Expiration Date Visits Requested Visits Authorized [id number] Authorized Auto-Generat ed Referral 03/04/2024 01/01/2025 1 [...] or prosecute any alcohol or drug abuse patient.[facility] SystemIn the event this information is protected by the Federal Confidentiality of Alcohol and Drug Abuse Patient Records regulations: The Federal rules restrict any use of the information to criminally investigate or prosecute any alcohol or drug abuse patient.[facility] SystemIn the event this information is protected by the Federal Confidentiality of Alcohol and Drug Abuse Patient Records regulations: The Federal rules restrict any use of the information to criminally investigate or prosecute any alcohol or drug abuse patient.[facility] SystemIn the event this information is protected by the Federal Confidentiality of Alcohol and Drug Abuse Patient Records regulations: The Federal rules restrict any use of the information to criminally investigate or prosecute any alcohol or drug abuse patient.[facility] SystemIn the event this information is protected by the Federal Confidentiality of Alcohol and Drug Abuse Patient Records regulations: The Federal rules restrict any use of the information to criminally investigate or prosecute any alcohol or drug abuse patient.[facility] SystemIn the event this information is protected by the Federal Confidentiality of Alcohol and Drug Abuse Patient Records regulations: The Federal rules restrict any use of the information to criminally investigate or prosecute any alcohol or drug abuse patient.[facility] SystemIn the event this information is protected by the Federal Confidentiality of Alcohol and Drug Abuse Patient Records regulations: The Federal rules restrict any use of the information to criminally investigate or prosecute any alcohol or drug abuse patient.[facility] SystemIn the event this information is protected by the Federal Confidentiality of Alcohol and Drug Abuse Patient Records regulations: The Federal rules restrict any use of the information to criminally investigate or prosecute any alcohol or drug abuse patient.[facility] SystemIn the event this information is protected by the Federal Confidentiality of Alcohol and Drug Abuse Patient Records regulations: The Federal rules restrict any use of the information to criminally investigate or prosecute any alcohol or drug abuse patient.[facility] SystemIn the event this information is protected by the Federal Confidentiality of Alcohol and Drug Abuse Patient Records regulations: The Federal rules restrict any use of the information to criminally investigate or prosecute any alcohol or drug abuse patient.[facility] SystemIn the event this information is protected by the Federal Confidentiality of Alcohol and Drug Abuse Patient Records regulations: The Federal rules restrict any use of the information to criminally investigate or prosecute any alcohol or drug abuse patient.[facility] SystemIn the event this information is protected by the Federal Confidentiality of Alcohol and Drug Abuse Patient Records regulations: The Federal rules restrict any use of the information to criminally investigate or prosecute any alcohol or drug abuse patient.[facility] SystemIn the event this information is protected by the Federal Confidentiality of Alcohol and Drug Abuse Patient Records regulations: The Federal rules restrict any use of the information to criminally investigate or prosecute any alcohol or drug abuse patient.[facility] SystemIn the event this information is protected by the Federal Confidentiality of Alcohol and Drug Abuse Patient Records regulations: The Federal rules restrict any use of the information to criminally investigate or prosecute any alcohol or drug abuse patient.[facility] SystemIn the event this information is protected by the Federal Confidentiality of Alcohol and Drug Abuse Patient Records regulations: The Federal rules restrict any use of the information to criminally investigate or prosecute any alcohol or drug abuse patient.[facility] SystemIn the event this information is protected by the Federal Confidentiality of Alcohol and Drug Abuse Patient Records regulations: The Federal rules restrict any use of the information to criminally investigate or prosecute any alcohol or drug abuse patient.[facility] SystemIn the event this information is protected by the Federal Confidentiality of Alcohol and Drug Abuse Patient Records regulations: The Federal rules restrict any use of the information to criminally investigate or prosecute any alcohol or drug abuse patient.[facility] Reason for Visit (unrecogniz ed section and [...] THORAX W/O Kamila Smith MD [address] [place] [address] [place] [address] Referral ID Status Reason Start Date Expiration Date V isits Requested Visits Authorized [id number] Closed Auto-Generate d Referral 11/12/2023 12/11/2024 1 1 Reason Comments Follow Up Ct scan 11/26/23, Specialty Diagnoses / Procedures Referred By Contac t Referred To Contact CT IMAGING Diagnoses Lung nodules Procedures CT CHEST WO IVCON DIAGNOSTIC COMPUTED TOMOGRAPHY THORAX W/O Kamila Smith MD [address] [place] [address] [place] [address] Referral ID Status Reason Start Date Expiration Date V isits Requested Visits Authorized [id number] Closed Auto-Generate d Referral 03/04/2024 01/01/2025 1 1 Reason Comments Release Of Medical Records Imaging Care Teams (unrecognized sec tion and content) Janitorial Account Manager Relationship Specialty Start Date End Date Jesus Peters MD [address] [facility] [address] [place] [address] PCP - General Family Practice 03/26/18 Janitorial Account Manager Relationship Specialty Start Date End Date Jesus Peters MD [address] [facility] [address] [place] [address] PCP - General Family Practice 03/26/18 Team [...] Provi leonie, Attending Provider, Referring Provider Active Janitorial Account Manager Relationship Specialty Start Date End Date Jesus Peters MD [address] [facility] [address] [place] [address] PCP - General Family Medicine 03/26/18 Janitorial Account Manager Relationship Specialty Start Date End Date Jesus Peters MD [address] [facility] [address] [place] [address] PCP - General Family Medicine 03/26/18 Janitorial Account Manager Relationship Specialty Start Date End Date Jesus Peters MD [address] [facility] [address] [place] [address] PCP - General Family Medicine 03/26/18 Janitorial Account Manager Relationship Specialty Start Date End Date Jesus Peters MD [address] [facility] [address] [place] [address] PCP - General Family Medicine 03/26/18 Team Status: Inactive Member Role Status Dates Dr. Jesus Peters MD Primary Care Provider, Attending Provider Active Team Status: Active Member Role Status Dates Dr. Jesus Peters MD Primary Care Provider Active Dr. Nayeli Perez MD Attending Provider, Referring Pr ovider Active CHANDANA PACE Active Janitorial Account Manager Relationship Specialty Start Date End Date Jesus Peters MD [address] [facility] [address] [place] [address] PCP - General Family Medicine 03/26/18 Janitorial Account Manager Relationship Specialty Start Date End Date Jesus Peters MD [address] [facility] [address] [place] [address] PCP - General Family Medicine 03/26/18 Janitorial Account Manager Relationship Specialty Start Date End Date Jesus Peters MD [address] [facility] [address] [place], [place] [address] PCP - General Family Medicine 03/26/18 Team [...] Provider, Referring Provider A ctARTEMIO Liriano Active Janitorial Account Manager Relationship Specialty Start Date End Date Jesus Peters MD [address] [place] [address] [address] [place] [address] PCP - General Family Medicine 03/26/18 Janitorial Account Manager Relationship Specialty Start Date End Date Jesus Peters MD [address] [facility] [address] [place] [address] PCP - General Family Medicine 03/26/18 Janitorial Account Manager Relationship Specialty Start Date End Date Jesus Peters MD [address] [facility] [address] [place] [address] PCP - General Family Medicine 03/26/18 Janitorial Account Manager Relationship Specialty Start Date End Date Jesus Peters MD [address] [facility] [address] [place] [address] PCP - General Family Medicine 03/26/18 Janitorial Account Manager Relationship Specialty Start Date End Date Jesus Peters MD [address] [facility] [address] [place], [place] [address] PCP - General Family Medicine 03/26/18 Janitorial Account Manager Relationship Specialty Start Date End Date Jesus Peters MD [address] [facility] [address] [place], [place] [address] PCP - General Family Medicine 03/26/18 Team [...] 2024 End: November 14, 2024 Leah Pearce TRANSPORTATION DISPATCHER, TRANSPORTATION DISPATCHER-C Attending physician Active Start: November 14, 2024 [...] section and content) DATE CREATED AUTHOR 07/03/2021 [facility] DATE CREATED AUTHOR AUTHOR'S ORGANIZ ATION 08/31/2022 [facility] DATE CREATED AUTHOR AUTHOR'S ORGANIZ ATION 05/10/2024 [facility] DATE CREATED AUTHOR AUTHOR'S ANNA ATION 12/03/2024 [facility] FOR RECORDS PERTAINING TO PATIENTS WHO ARE [...] BE BASED ON THE PRIMARY CLINICAL RECORDS. [employer] [facility]. provides no warranty or guarantee of the accuracy or completeness of information in this document.
== END | disposition home or self-care (01) ==
LOC: CVS 07:37
PROVIDERS: PCP Family Medicine; Referring Provider Nurse Practitioner Gerontology; Visit Provider Nurse Practitioner Gerontology
DX: I51.89 Other ill-defined heart diseases (principal); I10 Essential (primary) hypertension
CPT/HCPCS: 93306

== ENCOUNTER → 2024-12-19 | Outpatient (CLI) | payer MEDICARE, SELFPAY | END | disposition home or self-care (01) | LOC: PSN 09:03 | PROVIDERS: PCP Family Medicine; Referring Provider Nurse Practitioner Gerontology; Visit Provider Nurse Practitioner Gerontology | DX: R00.2 Palpitations (principal) | CPT/HCPCS: 93225; 93226 ==

== ENCOUNTER → 2025-02-06 | Outpatient (CLI) | payer MEDICARE, SELFPAY ==
--- OUTSIDE RECORDS SUMMARY | 2025-02-06 09:04 | XMS RPT_ITS | CCD ---
Author Organization [facility] Care Team Providers Care Millinery Blocker Name Role Phone Fariba ALBERTO, Mason Abdullahi Unavailable Jesus Peters MD Primary Care Provider Dr. Jesus Peters Primary Care Provider Dr. Jesus Peters Referring Provider Ramses CASTILLO, NAVJOT Lynn Attending Provider Dr. Jesus Peters Primary Care Provider Dr. Jesus Peters Referring Provider Dr. Ermias Clifton Attending Provider Jesus Peters MD Primary Care Provider [phone] JESUS PETERS Primary Care Unavailable NAYELI PEREZ Referring Unavailavelino e JESUS PETERS Primary Care Unavailable NAYELI PEREZ Admitting UnavailNAYELI Castillo Attending Unavailabl e JESUS PETERS Primary Care Unavailable Jesus Peters MD Primary Care Provider [phone] Jesus Peters Primary Care Provider Dr. Erwin Ibarra Attending Provider Dr. Jesus Peters Referring Provider MD Morgan Juarez Attending Provider [phone] [...] Lee Referring Provider Saurabh ALBERTO, Dr. Erwin Diza Attending Provider [phone] Saurabh ALBERTO, Dr. Erwin Diaz Referring Provider [phone] Fran ALBERTO, Dr. Lee Primary Care Provider [phone] Fran ALBERTO, Dr. Lee Attending Provider Fran ALBERTO, Dr. Lee Primary Care Physician [phone] Farn ALBERTO, Dr. Lee Attending Physician Fran ALBERTO, Dr. Lee Referring Provider Ramses CASTILLO-C, Leah Attending Physician Jesus Peters Attending Unavailable Peters, Jesus Primary Care Unavailable Ramses FISHER TRAP, Leah Referring Unavailable Peters, Jesus Primary Care Unavailable Ramses FISHER TRAP, Leah Attending Unavailable Ramses FISHER TRAP, Leah Referring Unavailable Peters, Jesus Primary Care Unavailable Ramses FISHER TRAP, Leah Attending Unavailable Peters, Jesus Primary Care Unavailable Peters, Jesus Attending Unavailable Peters, Jesus Primary Care Unavailable Peters, Jesus Attending Unavailable Peters, Jesus Referring Unavailable Peters, Jesus Primary Care Unavailable Sibilia, Erwin V Attending Unavailable Peters, Jesus Referring Unavailable Peters, Jesus Primary Care Unavailable Ramses FISHER TRAP, Leah Attending Unavailable Peters, Jesus Referring Unavailable Peters, Jesus Primary Care Unavailable Ramses FISHER TRAP, Leah Attending Unavailable [place], [place] Attending Unavailable Peters, Jesus Primary Care Unavailable Peters, Jesus Primary Care Unavailable Ramses FISHER TRAP, Leah Attending Unavailable Peters, Jesus Primary Care Unavailable Sibilia, Erwin V Attending Unavailable Sibilia, Erwin V Referring Unavailable Peters, Jesus Attending Unavailable Peters, Jesus Referring Unavailable Peters, Jesus Primary Care Unavailable Allergies Allergy Classification Reported Allergen(s) Allergy Type Date of Onset Reaction(s) Facility (20 sources) clindamycin; Translations: [CLINDAMYCIN] drug allergy 07-20-19 16 Rash, Itching, Other: See Comments [facility] Work Phone: (20 sources) gemfibrozil; Translations: [GEMFIBROZIL] drug allergy 11-19-20 10 GI Upset, Vomiting, Other: See Comments [facility] Work Phone: [phone] Comment on above: FEVER (3 sources) HYDROmorphone drug allergy 11-26-19 10 [facility] Work Phone: [phone] (20 sources) meloxicam; Translations: [MELOXICAM] drug allergy 11-06-19 12 Other: See Comments [facility] Work Phone: [phone] (5 sources) morphine; Translations: [MORPHINE] drug allergy 07-04-19 07 [facility] Work Phone: [phone] (3 sources) nitrofurantoin drug allergy 03-19-19 13 Gi-upset [facility] Work Phone: [phone] (3 sources) penicillin v drug allergy 11-26-19 10 [facility] Work Phone: [phone] (20 sources) predniSONE; Translations: [PREDNISONE] drug allergy 07-04-19 07 Unknown, Other: See Comments [facility] Work Phone: [phone] Comment on above: 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 [facility] Work Phone: [phone] (3 sources) CLINDAMYACIN drug allergy 07-20-19 16 [facility] Work Phone: [phone] (3 sources) MYCRODANTIN drug allergy 11-26-19 10 [facility] Work Phone: [phone] (20 sources) Chlorhexidine; Translations: [CHLORHEXIDINE] Drug Allergy 02-10-20 21 Itching [facility] (20 sources) Erythromycin; Translations: [ERYTHROMYCIN BASE] Drug Allergy 02-10-20 21 [facility] (20 sources) fentaNYL; Translations: [FENTANYL] Drug Allergy 02-10-20 Unknown, Other: See Comments [facility] Comment on above: DECREASED LEVEL OF C ONSIOUSNESS (5 sources) HMG-CoA reductase inhibitor; Translations: [HFYFRHG-GDJ-HZK REDUCTASE INHIBITORS] Drug Intolerance 05-07-19 22 Other: See Comments [facility] (20 sources) HYDROmorphone; Translations: [HYDROMORPHONE] Drug Allergy 11-08-19 12 Diarrhea, Vomiting, Other: See Comments [facility] (20 sources) Latex; Translations: [LATEX] Drug Allergy 02-10-20 21 Rash [facility] (20 sources) Morphine Drug Allergy 07-04-19 07 Diarrhea, Vomiting [facility] (19 sources) Nitrofurantoin; Translations: [NITROFURANTOIN MACROCRYSTALLINE] Drug Allergy 07-04-19 07 GI Upset [facility] (20 sources) Nitrofurantoin; Translations: [NITROFURANTOIN] Drug Allergy 02-10-20 21 Vomiting [facility] (8 sources) Penicillins; Translations: [PENICILLINS] Drug Allergy 07-04-19 07 [facility] (19 [facility]) Povidone-Iodine; Translations: [POVIDONE-IODINE] Drug Allergy 09-29-19 [facility] Work Phone: (20 sources) Sulfonamides (Antibiotic); Translations: [SULFA (SULFONAMIDE ANTIBIOTICS)] Propensity to adverse reactions to drug 07-04-19 07 Other: See Comments [facility] (19 sources) Varicella-Zoster Virus Vaccine Live ([place]-Merck) strain; Translations: [ZOSTER VACCINE LIVE (PF)] Drug Allergy 06-10-19 08 Vomiting, Other: See Comments [facility] (20 sources) Zinc; Translations: [ZINC] Drug Allergy 02-10-20 GI Upset [facility] (20 sources) Iodinated Contrast Media; Translations: [IODINATED CONTRAST MEDIA] Drug Allergy 06-25-19 20 [facility] Work Phone: (16 sources) Tzivefy-Okw-Fod Reductase Inhibitor; Translations: [Aubytev-Bcs-Wjh Reductase Inhibitor] Propensity to adverse reactions 02-10-20 21 myalgias [facility] Comment on above: doesn't lower choles terol (2 sources) BAND AID Allergy to substance 02-10-20 21 Rash [facility] Work Phone: (2 sources) shingle vaccine Allergy to substance 02-10-20 21 Vomiting [facility] Work Phone: (14 sources) Adhesive Tape; Translations: [adhesive tape] Allergy to substance 11-23-19 22 Rash [facility] Comment on above: (FROM BAND-AIDS) (13 sources) Penicillins Allergy to substance 11-23-19 22 Hives [facility] (13 sources) Sulfonamides (Antibiotic) Allergy to substance 11-23-19 PT UNSURE OF REACTION [facility] (13 sources) Triiodobenzoic Acids Allergy to substance 11-23-19 Rash [facility] (13 sources) Varicella zoster virus glycoprotein E Drug Allergy 11-23-19 22 Other [facility] Comment on above: VOMITING, BP ELEVATE D, COULDN'T STAND (14 sources) vaccine adjuvant system, AS01B liposomal; Translations: [vaccine adjuvant system, AS01B liposomal] Allergy to substance 11-23-19 Other [facility] Comment on above: VOMITING, BP ELEVATE D, COULDN'T STAND (14 sources) HMG-CoA reductase inhibitor Drug Intolerance 05-07-19 Other: See Comments [facility] (13 sources) Penicillins Drug Allergy 07-04-19 07 [facility] (15 sources) guaiFENesin / HYDROmorphone; Translations: [DILAUDID COUGH] Drug Allergy 07-29-19 23 Vomiting [facility] (15 sources) Iodine; Translations: [IODINE] Drug Allergy 07-29-19 Other: See Comments [facility] (1 source) Chlorhexidine Drug Allergy 12-20-19 [facility] (1 source) Erythromycin Drug Allergy 12-20-19 25 [facility] (1 source) fentaNYL Drug Allergy 12-20-19 [facility] (1 source) Gemfibrozil Drug Allergy 12-20-19 25 [facility] (1 source) HYDROmorphone Drug Allergy 12-20-19 25 [facility] (1 source) Latex Drug allergy (disorder) 12-20-19 [facility] (1 source) Morphine Drug Allergy 12-20-19 [facility] (1 source) Nitrofurantoin Drug Allergy 12-20-19 [facility] (1 source) Penicillins Drug allergy (disorder) 12-20-19 [facility] (1 source) Sulfonamides (Antibiotic) Drug allergy (disorder) 12-20-19 [facility] (1 source) Zinc Drug Allergy 12-20-19 [facility] (1 source) Iodinated Contrast Media Drug allergy (disorder) 12-20-19 [facility] (1 source) varicella-zoster virus glycoprotein E, recombinant Drug allergy (disorder) 12-20-19 [facility] Medications Current Medications Medication Drug [...] above: Take 1 tablet by rocio th two times a day for 10 days. [...] Start: 11-14-2024 take 1 capsule by mo [facility] once daily Levothyroxine 50 mcg capsule Active 50 ug PO daily November 14, 2024 12:00am [facility] Complies with drug therapy Start: 03-01-2018 End: [...] One tablet by mouth daily. LEVOTHYROXINE SODIUM [id number] Anali A Posten HAT BINDER take 1 tablet by rocio th once daily SYNTHROID 125 MCG TABS One tablet by mouth daily LEVOTHYROXINE SODIUM [id number] Kamila Mercado take 1 tablet by rocio th once daily SYNTHROID 50 MCG TABS One tablet by mouth daily. LEVOTHYROXINE SODIUM [id number] Anali A Posten HAT BINDER take 1 tablet by rocio th once daily SYNTHROID 125 MCG TABS One tablet by mouth daily LEVOTHYROXINE SODIUM [id number] Kamila Mercado Comment on above: Take 50 [...] HOURS NEEDED as needed for pain 20 5 0 February 09, 2021 November 22, 2021 2:43pm Fracture of proximal end of left humerus Start: 02-09-2021 End: 11-22-2021 take 1 tablet by mouth every six hours as needed Oxycodone-Acetaminophen Discontinued 1 TABLET PO EVERY 6 HOURS NEEDED 20 5 February 09, 2021 November 22, 2021 2:43pm Start: [...] times daily as needed for pain OXYCODONE-ACETAMINOPHEN [id number] Kamila López LPN Start: 03-26-2014 take 1-2 tablets by mouth four times daily as needed for pain PERCOCET 5-325 MG TABS one to two tablet s by mouth four times daily as needed for pain OXYCODONE-ACETAMINOPHEN [id number] Mason Link MD Start: 08-20-2013 take 1 tablet by rocio th four times daily as needed for pain PERCOCET 5-325 MG TABS One tablet by mouth four times daily as needed for pain OXYCODONE-ACETAMINOPHEN [id number] Mason Link MD Start: 08-20-2013 End: 10-07-2013 take 1 tablet by mouth four times daily as needed for pain PERCOCET 5-325 MG TABS One tablet by mouth four times daily as needed for pain OXYCODONE-ACETAMINOPHEN [id number] Kamila López LPN Start: 07-07-2013 End: 08-12-2013 take 1-2 tablets by mouth four times daily as needed for pain PERCOCET 5-325 MG TABS one to two tablet s by mouth four times daily as needed for pain OXYCODONE-ACETAMINOPHEN [id number] Kamila López LPN Start: 07-07-2013 take 1-2 tablets by mouth four times daily as needed for pain PERCOCET 5-325 MG TABS one to two tablet s by mouth four times daily as needed for pain OXYCODONE-ACETAMINOPHEN [id number] Mason Link MD Start: 06-10-2013 take 1-2 tablets by mouth four times daily as needed for pain PERCOCET 5-325 MG TABS one to two tablet s by mouth four times daily as needed for pain OXYCODONE-ACETAMINOPHEN [id number] Mason Link MD Start: 06-10-2013 End: 06-24-2013 take 1-2 tablets by mouth four times daily as needed for pain PERCOCET 5-325 MG TABS one to two tablet s by mouth four times daily as needed for pain OXYCODONE-ACETAMINOPHEN [id number] Kamila López LPN Start: 05-21-2013 End: 04-03-2014 take 1-2 tablets by mouth four times daily as needed for pain PERCOCET 5-325 MG TABS one to two tablet s by mouth four times daily as needed for pain OXYCODONE-ACETAMINOPHEN [id number] Kamila López LPN Start: 05-21-2013 take 1-2 tablets by mouth four times daily as needed for pain PERCOCET 5-325 MG TABS one to two tablet s by mouth four times daily as needed for pain OXYCODONE-ACETAMINOPHEN [id number] Mason Link MD Start: 05-21-2013 End: 06-24-2013 take 1-2 tablets by mouth four times daily as needed for pain PERCOCET 5-325 MG TABS one to two tablet s by mouth four times daily as needed for pain OXYCODONE-ACETAMINOPHEN [id number] Kamila López LPN acyclovir 800 mg oral tablet [...] five times daily for 10 days ACYCLOVIR [id number] Bo Ann MA aspirin 81 mg chewable tablet (20 sources) Nonsteroidal Anti-inflammatory Drug Start: 01-12-2014 End: 07-13-2015 take 1 tablet by mouth once daily Aspirin 81 MG Tab.Chew Discontinued 81 mg PO DAILY@0800 January 12, 2014 1:00am July 13, 2015 12:21pm Start: [...] TBEC One tablet by mouth daily ASPIRIN [id number] Sri Ken End: 04-17-2013 take 1 tablet by mouth once daily ASPIRIN 81MG One tablet by mouth daily ASPIRIN 81MG Jerome Shukla Comment on above: Take one(1) tablet d ailrussell. atorvastatin 20 mg oral tablet (10 sources) [...] ZITHROMAX 250 MG TAB (AZITHROMYCIN) (Z-PACK) Marilia MADDOXC bisacodyl 5 mg delayed release oral tablet (20 sources) Stimulant Laxative Start: 05-21-2013 End: 07-21-2013 take 1 tablet by mouth once daily Bisacodyl 5 MG tablet Discontinued 5 mg PO DAILY 30 0 May 21, 2013 12:00am June 11, 2013 1:48pm Start: 05-21-2013 End: 07-21-2013 take 1 tablet by mouth once daily DULCOLAX 5 MG TBEC One tablet by mouth daily BISACODYL [id number] Mason Link MD calcium ascorbate 50 mg [...] tablet by mouth once daily CALCIUM CARBONATE [id number] Bo Ann MA calcium carbonate 1500 mg [...] by mouth twice daily. CALCIUM CARBONATE-VITAMIN D [id number] Douglas Moncada MD Start: 11-25-2009 End: 03-19-2012 take 1 tablet by mouth twice daily CALCIUM 500+D 500-400 MG-UNIT TABS One tablet by mouth twice daily. CALCIUM CARBONATE-VITAMIN D [id number] Bo Ann MA cholecalciferol 0.025 mg oral [...] Start: 12-18-2011 take 3 capsules by m out once daily Cholecalciferol, Vitamin D3, 2,000 unit cap Take 6,000 Units by mouth once daily. 0 12/18/2011 Active End: 04-17-2013 take 2 tablets by mouth once daily VITAMIN D3 2000 UNIT CAPS Two tablets by mouth daily CHOLECALCIFEROL [id number] Jerome Shukla Comment on above: Take 6,000 Units by mouth once daily. cholecalciferol 5000 unt / folic acid 1 mg oral tablet (4 sources) Vitamin D vitamin D3-folic acid 5,000 unit- 1 mg tab Take by mouth. 0 Active Comment on above: Take by mouth. clindamycin 300 mg oral capsule (20 sources) Lincosamide Antibacterial Start: 06-27-19 End: 07-16-19 take 1 capsule by mouth three times daily Clindamycin Hcl 300 MG capsule Discontinued 300 mg PO THREE TIMES A DAY 42 0 June 27, 2019 12:00am July 16, 2019 9:14am Start: 05-09-2017 End: 08-14-2018 take 1 capsule by mouth three times daily Clindamycin Hcl 300 MG capsule Discontinued 300 mg PO THREE TIMES A DAY 15 May 09, 2017 12:00am August 14, 2018 1:30pm Start: 07-13-2015 End: 06-13-2016 take 1 capsule by mouth three times daily Clindamycin Hcl (Cleocin) 300 MG capsule Discontinued 300 mg PO THREE TIMES A DAY 12 July 13, 2015 12:00am June 13, 2016 1:39pm Start: 03-26-2014 End: 04-03-2014 take 1 tablet by mouth three times daily CLEOCIN 300 MG CAPS One tablet by mouth three times daily CLINDAMYCIN HCL [id number] Mason Link MD Start: 05-21-2013 End: 06-10-2013 take 1 tablet by mouth three times daily CLEOCIN 300 MG CAPS One tablet by mouth three times daily CLINDAMYCIN HCL [id number] Kamila López LPN ubidecarenone 100 mg oral capsule (16 sources) Start: 12-18-2011 End: 03-20-2012 take 1 capsule by mouth once daily coenzyme Q10 (CO Q-10) 100 mg cap Take 1 capsule by mouth once daily. 0 12/18/2011 Active ubidecarenone Q- 10 (CO Q-10) 10 mg cap Take by mouth once daily. Active take 1 tablet by [facility] once daily CO Q-10 100 MG CAPS One tablet by mouth daily COENZYME Q10 [id number] Bo Ann MA End: 03-20-2012 take 1 tablet by mouth once daily CO Q-10 100 MG CAPS One tablet by mouth daily COENZYME Q10 [id number] Alysha Krueger MD Comment on above: Take 1 capsule by [facility] once daily. diazePAM 5 mg oral tablet (18 sources) Benzodiazepine Start: 4 End: 4 take 1 tablet by mouth four times daily as needed for muscle spasms VALIUM 5 MG TABS One tablet by mouth four times daily as needed for spasm DIAZEPAM [id number] Kamila López LPN docusate sodium 100 mg [...] tablet by mouth twice daily DOCUSATE SODIUM [id number] Kamila López HAT BINDER Start: 05-21-2013 End: 07-21-2013 take 1 tablet by mouth twice daily COLACE 100 MG CAPS One tablet by mouth twice daily DOCUSATE SODIUM [id number] Kamila López HAT BINDER doxycycline hyclate 100 mg oral capsule (19 sources) Tetracycline-class Drug Start: 03-01-2018 End: 11-21-2019 take 1 capsule by mouth twice daily Doxycycline Hyclate 100 MG capsule Discontinued 100 mg PO TWICE A DAY 10 July 29, 2019 12:00am November 21, 2019 11:36am ergocalciferol 03365 unt oral tablet (6 sources) Provitamin D2 Compound End: 12-28-2015 take 1 tablet by mouth every week VITAMIN D (ERGOCALCIFEROL) 60195 UNIT CAPS One tablet by mouth weekly ERGOCALCIFEROL [id number] Hoskins M Alam End: 12-28-2015 take 1 tablet by mouth every week VITAMIN D (ERGOCALCIFEROL) 23374 UNIT CAPS One tablet by mouth weekly ERGOCALCIFEROL [id number] Hoskins M Alam 3.5 ml evolocumab 120 [...] TABS One tablet by mouth daily EZETIMIBE [id number] Kamila Vanegas Rogelio IRON POLYSACCH [id number] (6 sources) Vitamin B12 Start: 4 End: 4 take 1 tablet by mouth once daily at mealtime IFEREX 150 FORTE 150-25-1 MG-MCG-MG CAPS One tablet by mouth daily with meals IRON POLYSACCH [id number] Kamila Mchugh Rene LAUREN Start: 05-21-2013 End: 07-21-2013 take 1 tablet by mouth once daily at mealtime IFEREX 150 FORTE 150-25-1 MG-MCG-MG CAPS One tablet by mouth daily with meals IRON POLYSACCH [id number] Kamila Mchugh Rene LAUREN Start: 05-21-2013 take 1 tablet by rocio th once daily at mealtime IFEREX 150 FORTE 150-25-1 MG-MCG-MG CAPS One tablet by mouth daily with meals IRON POLYSACCH [id number] Mason Link MD gabapentin 100 mg oral [...] CAPS One tablet by mouth daily GABAPENTIN [id number] Mason Link MD Start: 07-28-2013 End: 10-31-2013 take 1 tablet by mouth once daily NEURONTIN 100 MG CAPS One tablet by mouth daily GABAPENTIN [id number] Mason Link MD gemfibrozil 600 mg oral tablet (6 sources) Peroxisome Proliferator Receptor alpha Agonist Start: 11-25-2009 End: 03-19-2012 take 1 tablet by mouth twice daily GEMFIBROZIL 600 MG TABS One tablet by mouth twice daily. GEMFIBROZIL [id number] Bo Ann MA hydroCHLOROthiazide 12.5 mg oral capsule (15 sources) Thiazide Diuretic Start: 11-19-2020 End: 11-25-2020 take 1 capsule by mouth once daily Hydrochlorothiazide 12.5 mg capsule Discontinued 12.5 mg PO DAILY 18 05November 19, 2020 12:00November 25, 2020 2:54pm IMIQUIMOD (11 sources) Start: 05-15-2016 End: 07-24-2016 ALDARA 5 % CREA apply daily at night 5 days per week for 6 weeks IMIQUIMOD [id number] Kamila L López HAT BINDER Start: 05-15-2016 End: 07-24-2016 ALDARA 5 % CREA apply daily at night 5 days per week for 6 weeks IMIQUIMOD [id number] Kamila L López HAT BINDER Start: 05-15-2016 ALDARA 5 % CRE A apply daily at night 5 days per week for 6 weeks IMIQUIMOD [id number] Mason Link MD Start: 07-26-2015 End: 11-15-2015 ALDARA 5 % CREA apply daily at night 5 days per week for 6 weeks IMIQUIMOD [id number] Kamila L López HAT BINDER Start: 07-26-2015 ALDARA 5 % CRE A apply daily at night 5 days per week for 6 weeks IMIQUIMOD [id number] Mason Link MD Start: 07-26-2015 End: 11-15-2015 ALDARA 5 % CREA apply daily at night 5 days per week for 6 weeks IMIQUIMOD [id number] Kamila L López HAT BINDER IVERMECTIN (3 sources) Antiparasitic, Pediculicide SOOL ANTRA 1 % CREA IVERMECTIN [id number] Kamila L López HAT BINDER SOOLANTRA 1 % CR EA IVERMECTIN [id number] Kamila L López HAT BINDER Lactobac Acidoph-Fructooligo s (11 sources) Start: 07-29-2019 [...] One tablet by mouth twice daily LACTOBACILLUS [id number] Kamila López LPN Start: 03-26-2014 take 1 tablet by rocio th twice daily ACIDOPHILUS PROBIOTIC TABS One tablet by mouth twice daily LACTOBACILLUS [id number] Mason Link MD Start: 06-10-2013 take 1 tablet by rocio th twice daily ACIDOPHILUS PROBIOTIC TABS One tablet by mouth twice daily LACTOBACILLUS [id number] Mason Link MD Start: 06-10-2013 End: 06-24-2013 take 1 tablet by mouth twice daily ACIDOPHILUS PROBIOTIC TABS One tablet by mouth twice daily LACTOBACILLUS [id number] Kamila López LPN Start: 05-21-2013 End: 06-24-2013 take 1 tablet by mouth twice daily ACIDOPHILUS PROBIOTIC TABS One tablet by mouth twice daily LACTOBACILLUS [id number] Kamila López LPN Start: 05-21-2013 take 1 tablet by rocio th twice daily ACIDOPHILUS PROBIOTIC TABS One tablet by mouth twice daily LACTOBACILLUS [id number] Mason Link MD lactobacillus acidophilus [id number] unt / pectin 100 mg oral tablet (20 sources) Start: 07-13-2015 End: 06-13-2016 take 1 tablet by mouth twice daily Acidophilus-Pectin, [place] 1 EACH tablet Discontinued 1 NMA PO TWICE A DAY July 13, 2015 12:00am June 13, 2016 1:39pm Start: 07-13-2015 End: 06-13-2016 Acidophilus-Pectin, [place] D iscontinued 1 EACH PO TWICE A DAY July 13, 2015 12:00am June 13, 2016 1:39pm Start: 05-21-2013 End: 06-11-2013 take 1 tablet by mouth twice daily Acidophilus-Pectin, [place] 1 EACH tablet Discontinued 1 NMA PO TWICE A DAY May 21, 2013 12:00am June 11, 2013 1:49pm Start: 05-21-2013 End: 06-11-2013 Acidophilus-Pectin, [place] D iscontinued 1 EACH PO TWICE A [...] MG TABS 1 by mouth daily LEVOFLOXACIN [id number] Kamila López LPN lisinopril 10 mg oral tablet (20 sources) Angiotensin Converting Enzyme Inhibitor Start: 01-09-2023 End: 11-12-2024 take 1 tablet by mouth once daily Lisinopril 10 mg tablet Discontinued 10 mg PO DAILY January 09, 2023 1:00am November 12, 2024 5:03pm Start: 01-31-2021 End: 11-22-2021 take 1 tablet by mouth once daily Lisinopril 10 mg tablet Discontinued 10 mg PO DAILY 90 3 January 31, 2021 2:41pm November 22, 2021 [...] tablet by mouth daily with food MELOXICAM [id number] Alysha Krueger MD MULTIPLE VITAMIN (2 sources) take 1 tablet by rocio th once daily MULTI-VITAMIN TABS One tablet by mouth daily MULTIPLE VITAMIN [id number] Douglas Moncada MD End: 03-19-2012 take 1 tablet by mouth once daily MULTI-VITAMIN TABS One tablet by mouth daily MULTIPLE VITAMIN 36242712881 Bo Ann MA multivitamin (4 sources) End: 03-19-2012 take 1 tablet by mouth once daily MULTI-VITAMIN TABS One tablet by mouth daily MULTIPLE VITAMIN [id number] Bo Ann MA take 1 tablet by mouth once pastro y MULTI-VITAMIN TABS One tablet by mouth daily MULTIPLE VITAMIN [id number] Douglas Moncada MD niacin 500 mg oral tablet (6 sources) Nicotinic Acid End: 11-25-2009 NIACIN TABS 1500 mg, 1 daily NIACIN TABS [id number] Douglas Moncada MD [place]-3 Fatty Acids (FISH OIL) 500 mg Cap (4 sources) Start: 07-04-2011 take 1 capsule by mouth once daily [place]-3 Fatty Acids (FISH OIL) 500 mg Cap [...] daily 600mg daily [place]-3 FATTY ACIDS CAPS [id number] Alysha Krueger MD take 1 tablet by mouth once pastor y FISH OIL PEARLS CAPS One tablet by mouth daily 600mg daily OMEGA-3 FATTY ACIDS CAPS [id number] Bo Ann MA OMEGA-3 FATTY ACIDS CAPS (2 sources) End: 03-20-2012 take 1 tablet by mouth once daily FISH OIL PEARLS CAPS One tablet by mouth daily 600mg daily OMEGA-3 FATTY ACIDS CAPS [id number] Alysha Krueger MD take 1 tablet by mouth once pastor y FISH OIL PEARLS CAPS One tablet by mouth daily 600mg daily OMEGA-3 FATTY ACIDS CAPS [id number] Bo Ann MA ondansetron 4 mg disintegrating [...] One tablet by mouth daily PITAVASTATIN CALCIUM [id number] Jerome Shukla predniSONE 10 mg oral tablet [...] TIMES DAILY NEEDED as needed for NAUSEA/VOMITING 30 May 09, 2017 3:20pm August 14, 2018 1:29pm Start: 05-21-2013 End: 07-21-2013 take 1 tablet by mouth four times daily as needed for nausea PROMETHAZINE HCL 25 MG TABS One tablet by mouth four times daily as needed for nausea PROMETHAZINE HCL [id number] Mason Link MD rosuvastatin calcium 10 mg [...] One tablet by mouth daily ROSUVASTATIN CALCIUM 10631918607 Kamila Mercado End: 04-09-2014 take 1 tablet by mouth once daily CRESTOR 10 MG TABS One tablet by mouth daily ROSUVASTATIN CALCIUM 72930999942 Kamila Mercado End: 04-09-2014 take 1 tablet by mouth once daily CRESTOR 20 MG TABS One tablet by mouth daily ROSUVASTATIN CALCIUM 56502622869 Kamila Mercado Comment on above: Take 0.5 [...] TABS One tablet by mouth daily SIMVASTATIN [id number] Alysha Krueger MD TAMOXIFEN CITRATE TABS (6 sources) Estrogen Agonist/Antagonis t End: 12-22-2013 TAMOXIFEN CITRATE TABS 1 daily TAMOXIFEN CITRATE TABS 32502860635 Patty Rondon LPN TAMOXIFEN CITRAT E TABS 1 daily TAMOXIFEN CITRATE TABS 96452476305 Kamila López LPN traMADol hydrochloride 50 mg [...] twice daily for 3 days VALACYCLOVIR HCL 80218084309 Alysha Krueger MD End: 04-01-2012 take 1 tablet by mouth once daily VALTREX 1 GM TABS One tablet by mouth daily VALACYCLOVIR HCL 39983460796 Bo Ann MA End: 04-01-2012 take 1 tablet by mouth once daily VALTREX 1 GM TABS One tablet by mouth daily VALACYCLOVIR HCL 36922194932 Bo Metzger Seth MA take 1 tablet by rocio th once daily VALTREX 1 GM TABS One tablet by mouth daily VALACYCLOVIR HCL 86930522168 Bo Metzger Seth STU CHOLECALCIFEROL (3 sources) take 1 tablet by rocio th once daily VITAMIN D 1000 UNIT TABS One tablet by mouth daily CHOLECALCIFEROL 06411640788 Helga Styles take 1 tablet by mouth once pastor y VITAMIN D 1000 UNIT TABS One tablet by mouth daily CHOLECALCIFEROL 41237621549 Helga Styles Problems Active Problems Problem Classification Problem Date Documented Date Episodic/Chronic Asthma (6 sources) Asthma; Translations: [Unspecified asthma, uncomplicated] Resolved: 0 11-25-2009 Chronic Cancer of breast (20 sources) Carcinoma in situ of breast; 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 [place] [address] OFFICE VISIT Date of Service: 12/19/24 MR#: [id number] Acct: [id number] Name: MADDISON RIVERA Rep #: [id number] : 1945 Provider: NAVJOT richter Age/Sex: 78/F [place] [facility] Status: Signed HPI HPI History of Present Illness Details: This is a 78-year-old lady who presents to the office today for a cardiovascular visit. She presented to our office on 11/14/2024 with complaints of labile blood pressures. Her PCP started her [...] or sudden weight gain. She does acknowledge dizziness after taking Losartan. She denies lightheadedness, syncopal or near syncopal episodes, and headaches. Intake Vital Signs 11/14/24 07:43 12/19/24 07:49 Height 5 ft 9 in 5 ft 9 in Weight: 158 lb BMI 23.3 BP 136/83 H Blood Pressure Location Lt brachial Position Sitting Respiration 18 Pulse 98 Pulse Source Monitor Intake Visit Reasons: 4-6 W F/U [employer] Co[employer] Operator Required: No Is patient in pain?: No Allergies clindamycin Allergy (Intermediate, Verified 12/19/24 08:36) HIVES, BLISTERS, ITCHING adhesive tape Allergy (Verified 12/19/24 08:36) Rash chlorhexidine Allergy (Verified 12/19/24 08:36) Itching erythromycin base Allergy (Verified 12/19/24 08:36) Hives gemfibrozil Allergy (Verified 12/19/24 08:36) Other hydromorphone (From Dilaudid) Allergy (Verified 12/19/24 08:36) Nausea/Vom/Diarrhea Iodinated Contrast Media Allergy (Verified 12/19/24 08:36) Rash meloxicam (From Mobic) Allergy (Verified 12/19/24 08:36) Nausea morphine Allergy (Verified 12/19/24 08:36) Nausea/Vom/Diarrhea nitrofurantoin (From Macrodantin) Allergy (Verified 12/19/24 08:36) Vomiting Penicillins Allergy (Verified 12/19/24 08:36) Hives Sulfa (Sulfonamide Antibiotics) Allergy (Verified 12/19/24 08:36) PT UNSURE OF REACTION vaccine adjuvant system, AS01B liposomal (From Shingrix (PF)) Allergy (Verified 12/19/24 08:36) Other varicella-zoster virus glycoprotein E, recombinant (From Shingrix (PF)) Allergy (Verified 12/19/24 08:36) Other fentanyl Adverse Reaction (Verified 12/19/24 08:36) Other latex Adverse Reaction (Verified 12/19/24 08:36) Rash prednisone Adverse Reaction (Verified 12/19/24 08:36) Other Lkcofcc-EBC-XfS Reductase Inhibitor (Niecoro-Gjb-Khf Reductase Inhibitor) Adverse Reaction (Verified 12/19/24 08:36) myalgias zinc Adverse Reaction (Verified 12/19/24 08:36) Upset Stomach Medications ???Medication ???Instructions ???Recorded ???Confirmed ???Type celecoxib 200 mg capsule 200 mg PO DAILY 11/22/21 12/19/24 History levothyroxine 50 mcg capsule 50 mcg PO QDAY 11/14/24 12/19/24 H istory levothyroxine 50 mcg tablet 75 mcg PO DAILY 11/14/24 12/19/24 History (Synthroid) milnacipran 25 mg tablet (Savella) 25 mg PO ONCE 11/14/24 12/19/24 History amlodipine 5 mg tablet 5 mg PO QDAY #30 tabs 12/19/24 Rx evolocumab 140 mg/mL subcutaneous 420 mg (3 mL) subcut Q2W #3 mL 12/19/24 Rx pen injector (Repatha SureClick) Ejection fraction %: 70 Have you fallen in the past year?: [...] ear Vitamin D deficiency Hyperlipidemia Surgical History History of left shoulder replacement Histor (more content not included)... Normal [facility] Echo Completeon 12-11-2024 Echo [facility] [address] [place] [address] Echo Complete 12/11/24 0800 MR#: [id number] Acct: [id number] Name: MADDISON RIVERA Rep #: [id number] : 1945 78 From: Ermias Clifton MD Attending Dr: Leah Pearce NP-C Status: ROYAL BREWER Ordering Dr: Leah Pearce NP FISHER TRAP-C Date: 12/11/24 Location: [facility] Sex: F C Admitted: Reason For Study Reason For Study: Hypertension Procedure This was a 2D Doppler, Color Flow transthoracic echocardiogram. Myocardial strain analysis was performed in this exam to aid in the assessment of cardiac function. Exam performed in department. Left Ventricle Normal LV size. The global longitudinal strain = -18.7 % (normal). The left ventricular ejection fraction is 70 %. No regional wall motion abnormalities noted. Right Ventricle Normal RV size. Normal systolic function. Atria Normal left atrium. Normal right atrium. Mitral Valve Normal mitral valve. Tricuspid Valve Normal tricuspid valve. Aortic Valve Trisinus/trileaflet aortic valve. Mild diffuse aortic valve thickening. Pulmonic Valve Normal pulmonic valve. Great Vessels Normal aortic root. Pericardium/Pleural No pericardial effusion. MMode/2D Measurements Calculations LVIDd: 3.9 cm IVSd: 0.86 cm Ao root diam: 3.6 cm LVIDs: 2.3 cm LVPWd: 0.88 cm RVDd: 3.0 cm FS: 42.1 % LAV(MOD-bp): 40.8 ml LVAd ap4: 19.0 cm2 LVAd ap2: 21.4 cm2 LAV(MOD-bp) Indexed: 21.6 ml/m2 LVLd ap4: 7.0 cm LVLd ap2: 7.4 cm LAV(MOD-sp2): 36.9 ml EDV(MOD-sp4): 42.7 ml EDV(MOD-sp2): 50.1 ml LAV(MOD-sp4): 43.2 ml EDV(sp4-el): 43.9 ml EDV(sp2-el): 52.4 ml LVAs ap4: 9.0 cm2 LVAs ap2: 8.8 cm2 LVLs ap4: 6.0 cm LVLs ap2: 6.2 cm ESV(MOD-sp4): 13.4 ml ESV(MOD-sp2): 11.6 ml ESV(sp4-el): 11.6 ml ESV(sp2-el): 10.5 ml EF(MOD-sp4): 68.6 % EF(MOD-sp2): 76.8 % EF(sp4-el): 73.5 % SV(MOD-sp4): 29.3 ml SV(MOD-sp2): 38.5 ml SV(sp4-el): 32.3 ml SI(MOD-sp4): 15.5 ml/m2 SI(MOD-sp2): 20.4 ml/m2 LA A4 area: 15.3 cm2 LA dimension(2D): 3.4 cm RA A4 area: 9.7 cm2 TAPSE: 1.5 cm Time Measurements MV dec time: 0.28 sec Doppler Measurements Calculations MV E max joselito: 87.6 cm/sec Lat Peak E' Joselito: 4.3 cm/sec Med Peak E' Joselito: 6.6 cm/sec MV A max joselito: 107.8 cm/sec E/E' lat: 20.3 E/E' med: 13.2 MV E/A: 0.81 Ao V2 max: 137.5 cm/sec LV V1 max: 118.5 cm/sec MV dec slope: 310.3 cm/sec2 Ao max P.6 mmHg LV V1 max P.6 mmHg Ao V2 mean: 87.5 cm/sec LV V1 mean P.7 mmHg Ao mean P.7 mmHg LV V1 mean: 76.5 cm/sec Ao V2 VTI: 26.3 cm LV V1 VTI: 25.6 cm AV (velocity ratio): 0.97 PA V2 max: 100.2 cm/sec TR max joselito: 227.6 cm/sec TR max P.8 mmHg ECHO/Echo Complete Interpretation Summary Normal LV size. The global longitudinal strain = -18.7 % (normal). The left ventricular ejection fraction is 70 %. Mild diffuse aortic valve thickening. ___ Ordering Physician: Leah Pearce Referring Physician: Jesus Rodriguez Performed By: Benjamin Fletcher RDCS 12/11/24 1121 Date Ermias Clifton MD CC: FISHER TRAP-C Leah Pearce; Dr. Jesus Peters MD Date Dictated: 12/11/24 0800 Date Transcribed: 12/11/24 1121 Supervisor Rod Placing: Signed Normal [facility] Cardiology Visit Reporton Cardiology Visit Report [facility] 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 Normal [facility] Anion gap in Serum or Plasma Ordered By: Jesus Peters on 10-06-2024 Anion gap [Moles/Vol] 13 mmol/L 5-15 [facility] BUN/creatinine ratioOrdered By: Jesus Peters on 10-06-2024 Urea nitrogen/Creatinine [Mass ratio] 23.2 mg/mg High 10-20 [facility] Bilirubin, totalOrdered By: Jesus Peters on 10-06-2024 Bilirubin [Mass/Vol] 0.37 mg/dL 0.00-1.30 [facility] Calculated very low density lipoprotein (VLDL) cholesterol measurementOrdered By: Jesus Peters on 10-06-2024 Calculated very low density lipoprotein (VLDL) cholesterol measurement 34 mg/dL 5-40 [facility] Carbon dioxide, total [Moles /volume] in Central venous bloodOrdered By: Jesus Peters on 10-06-2024 CO2 [Moles/Vol] 22.8 mmol/L 21.0-32.0 [facility] Chloride assayOrdered By: Denver Peters on 10-06-2024 Chloride [Moles/Vol] 105 mmol/L 98-108 [facility] Comprehensive Metabolic Prof ilon 10-06-2024 Albumin [Mass/Vol] 4.1 g/dL Normal 3.4-4.8 [facility] Comment on above: Order Comment: Order Date: 10/02/24Order Info: [id number] - CMPOrder Info: [id number] - LIPIDOrder Info: 3051-0 - U3ZXvoff Info: 3016-3 - TSHOrder Info: 3024-7 - T4F Performed By: #### L 500.4050, L500.4100, L501.43888, L501.9520, L506.0400 ####[facility] [address] [place], [address] Albumin/Globulin [Mass ratio] 1.3 {ratio} Normal 0.9-2.4 [facility] Comment on above: Order Comment: Order Date: 10/02/24Order Info: 07-1 - CMPOrder Info: [id number] - LIPIDOrder Info: 3051-0 - X3WRgnos Info: 3016-3 - TSHOrder Info: 3024-7 - T4F Performed By: #### L 500.4050, L500.4100, L501.16200, L501.9520, L506.0400 ####[facility] [address] [place], [address] ALK PHOS 107 U/L High 35-104 [facility] Comment on above: Order Comment: Order Date: 10/02/24Order Info: 0786-1 - CMPOrder Info: [id number] - LIPIDOrder Info: 3051-0 - K5JHwmat Info: 3016-3 - TSHOrder Info: 3024-7 - T4F Performed By: #### L 500.4050, L500.4100, L501.58270, L501.9520, L506.0400 ####[facility] [address] [place], [address] ALT [Catalytic activity/Vol] 16 U/L Normal <=34 [facility] Comment on above: Order Comment: Order Date: 10/02/24Order Info: 86-1 - CMPOrder Info: [id number] - LIPIDOrder Info: 3051-0 - M5WVxvgh Info: 3016-3 - TSHOrder Info: 3024-7 - T4F Performed By: #### L 500.4050, L500.4100, L501.50479, L501.9520, L506.0400 ####[facility] [address] [place], [address] AST [Catalytic activity/Vol] 22 U/L Normal <=31 [facility] Comment on above: Order Comment: Order Date: 10/02/24Order Info: 785-1 - CMPOrder Info: [id number] - LIPIDOrder Info: 3051-0 - X6OCctpr Info: 3016-3 - TSHOrder Info: 3024-7 - T4F Performed By: #### L 500.4050, L500.4100, L501.15800, L501.9520, L506.0400 ####[facility] [address] [place], [address] Bilirubin [Mass/Vol] 0.37 mg/dL Normal 0.00-1.30 [facility] Comment on above: Order Comment: Order Date: 10/02/24Order Info: 785- - CMPOrder Info: [id number] - LIPIDOrder Info: 3051-0 - X7TUuglj Info: 3016-3 - TSHOrder Info: 3024-7 - T4F Performed By: #### L 500.4050, L500.4100, L501.17741, L501.9520, L506.0400 ####[facility] [address] [place], [address] BUN/CRE 23.2 RATIO High 10-20 [facility] Comment on above: Order Comment: Order Date: 10/02/24Order Info: 86-1 - CMPOrder Info: [id number] - LIPIDOrder Info: 3051-0 - A0SNsrek Info: 3016-3 - TSHOrder Info: 3024-7 - T4F Performed By: #### L 500.4050, L500.4100, L501.11221, L501.9520, L506.0400 ####[facility] [address] [place], [address] Calcium [Mass/Vol] 9.6 mg/dL Normal 7.6-11.0 [facility] Comment on above: Order Comment: Order Date: 10/02/24Order Info: 0786-1 - CMPOrder Info: [id number] - LIPIDOrder Info: 3051-0 - M6KPixvm Info: 3016-3 - TSHOrder Info: 3024-7 - T4F Performed By: #### L 500.4050, L500.4100, L501.45959, L501.9520, L506.0400 ####[facility] [address] [place], [address] Chloride [Moles/Vol] 105 mmol/L Normal 98-108 [facility] Comment on above: Order Comment: Order Date: 10/02/24Order Info: 0786-1 - CMPOrder Info: [id number] - LIPIDOrder Info: 3051-0 - N5FZmpnq Info: 3016-3 - TSHOrder Info: 3024-7 - T4F Performed By: #### L 500.4050, L500.4100, L501.01973, L501.9520, L506.0400 ####[facility] [address] [place], [address] CO2 [Moles/Vol] 22.8 mmol/L Normal 21.0-32.0 [facility] Comment on above: Order Comment: Order Date: 10/02/24Order Info: 0786-1 - CMPOrder Info: [id number] - LIPIDOrder Info: 3051-0 - E1CMrzkt Info: 3016-3 - TSHOrder Info: 3024-7 - T4F Performed By: #### L 500.4050, L500.4100, L501.86865, L501.9520, L506.0400 ####[facility] [address] [place], [address] Creatinine [Mass/Vol] 0.92 mg/dL Normal 0.70-1.20 [facility] Comment on above: Order Comment: Order Date: 10/02/24Order Info: 0786-1 - CMPOrder Info: [id number] - LIPIDOrder Info: 3051-0 - R4GMbodk Info: 3016-3 - TSHOrder Info: 3024-7 - T4F Performed By: #### L 500.4050, L500.4100, L501.19548, L501.9520, L506.0400 ####[facility] [address] [place], [place], [address] GAP 13 Normal 5-15 [facility] Comment on above: Order Comment: Order Date: 10/02/24Order Info: 0786-1 - CMPOrder Info: [id number] - LIPIDOrder Info: 3051-0 - O1NEwnmz Info: 3016-3 - TSHOrder Info: 3024-7 - T4F Performed By: #### L 500.4050, L500.4100, L501.18202, L501.9520, L506.0400 ####[facility] [address] [place], [place], [address] GFR/1.73 sq M.predicted among non-blacks MDRD (S/P/Bld) [Vol rate/Area] 64 mL/min/{1.73_m2} Normal >60 [facility] Comment on above: Order Comment: Order Date: 10/02/24Order Info: 0786-1 - CMPOrder Info: [id number] - LIPIDOrder Info: 3051-0 - Y2ZZlvbx Info: 3016-3 - TSHOrder Info: 3024-7 - T4F Result Comment: mL/m in/1.73m2 CKD-EPI Creatinine Equation (2020) Performed By: #### L 500.4050, L500.4100, L501.37533, L501.9520, L506.0400 ####[facility] [address] [place], [address] Globulin (S) [Mass/Vol] 3.2 g/dL Normal 2.2-4.2 [facility] Comment on above: Order Comment: Order Date: 10/02/24Order Info: 0786-1 - CMPOrder Info: [id number] - LIPIDOrder Info: 3051-0 - T1QKlkmd Info: 3016-3 - TSHOrder Info: 3024-7 - T4F Performed By: #### L 500.4050, L500.4100, L501.23722, L501.9520, L506.0400 ####[facility] [address] [place], [address] Glucose [Mass/Vol] 93 mg/dL Normal 70-99 [facility] Comment on above: Order Comment: Order Date: 10/02/24Order Info: 785-1 - CMPOrder Info: [id number] - LIPIDOrder Info: 3051-0 - F6IVdxpq Info: 3016-3 - TSHOrder Info: 3024-7 - T4F Performed By: #### L 500.4050, L500.4100, L501.61630, L501.9520, L506.0400 ####[facility] [address] [place], [address] Potassium [Moles/Vol] 4.0 mmol/L Normal 3.3-5.1 [facility] Comment on above: Order Comment: Order Date: 10/02/24Order Info: 0786-1 - CMPOrder Info: [id number] - LIPIDOrder Info: 3051-0 - K5DDyusc Info: 3016-3 - TSHOrder Info: 3024-7 - T4F Performed By: #### L 500.4050, L500.4100, L501.93356, L501.9520, L506.0400 ####[facility] [address] [place], [address] Sodium [Moles/Vol] 141 mmol/L Normal 133-145 [facility] Comment on above: Order Comment: Order Date: 10/02/24Order Info: 0786-1 - CMPOrder Info: [id number] - LIPIDOrder Info: 3051-0 - D7YCwkdn Info: 3016-3 - TSHOrder Info: 3024-7 - T4F Performed By: #### L 500.4050, L500.4100, L501.15360, L501.9520, L506.0400 ####[facility] [address] [place], [address] T PROT 7.3 g/dL Normal 5.9-8.4 [facility] Comment on above: Order Comment: Order Date: 10/02/24Order Info: 86-1 - CMPOrder Info: [id number] - LIPIDOrder Info: 3051-0 - W0RXbpux Info: 3016-3 - TSHOrder Info: 3024-7 - T4F Performed By: #### L 500.4050, L500.4100, L501.69889, L501.9520, L506.0400 ####[facility] [address] [place], [address] Urea nitrogen [Mass/Vol] 21 mg/dL High 4-19 [facility] Comment on above: Order Comment: Order Date: 10/02/24Order Info: 0786-1 - CMPOrder Info: [id number] - LIPIDOrder Info: 3051-0 - B9XOcmjg Info: 3016-3 - TSHOrder Info: 3024-7 - T4F Performed By: #### L 500.4050, L500.4100, L501.90609, L501.9520, L506.0400 ####[facility] [address] [place], [address] Free T3on 10-06-2024 Free T3 [Mass/Vol] 2.9 pg/mL Normal 2.18-3.98 [facility] Comment on above: Order Comment: Order Date: 10/02/24Order Info: 0786-1 - CMPOrder Info: [id number] - LIPIDOrder Info: 3051-0 - I4WAaxpe Info: [id number] - TSHOrder Info: 3023-08 - T4F Performed By: #### L 500.4050, L500.4100, L501.79442, L501.9520, L506.0400 ####[facility] [address] [place], [address] Free I4Ykpfufa By: Jesus watts on 10-06-2024 Free T3 [Mass/Vol] 2.9 pg/mL 2.18-3.98 [facility] Glomerular filtration rate ( GFR) estimation/1.73 sq m using serum, plasma, or whole bOrdered By: Jesus Peters on 10-06-2024 GFR/1.73 sq M.predicted among non-blacks MDRD (S/P/Bld) [Vol rate/Area] 64 mL/min/{1.73_m2} >60 [facility] Comment on above: mL/min/1.73m2 CKD-EP I Creatinine Equation (2020) LDL calc ser/plasOrdered By: Jesus Peters on 10-06-2024 Cholesterol in LDL [Mass/Vol] 133 mg/dL [facility] Comment on above: Dioiromczw=978-441 m g/dL & Higher Rnov=436 mg/dL or greaterFriedwald Equation for LDL-C Laboratory - Chemistry and C hemistry - challengeOrdered By: Jesus Peters on 10-06-2024 AST [Catalytic activity/Vol] 22 U/L <32 [facility] Lipid Profileon 10-06-2024 CHOL:HDL 4.45 Normal [facility] Comment on above: Order Comment: Order Date: 10/02/24Order Info: 0786-1 - CMPOrder Info: [id number] - LIPIDOrder Info: - L1RCavsf Info: [id number] - TSHOrder Info: 3023-08 - T4F Performed By: #### L 500.4050, L500.4100, L501.68327, L501.9520, L506.0400 ####[facility] [address] [place], [address] Cholesterol [Mass/Vol] 215 mg/dL High <=200 [facility] Comment on above: Order Comment: Order Date: 10/02/24Order Info: 86-1 - CMPOrder Info: [id number] - LIPIDOrder Info: 3051-0 - C0EYbucg Info: 3 - TSHOrder Info: 7 - T4F Result Comment: Chol esterol level, Desirable <200 mg/dL Borderline high cholesterol 200-239 mg/dL High cholesterol >=240 mg/dL Recommendations of the NCEP Adult Treatment Panel for the following risk-cutoff thresholds for the [place] population. Performed By: #### L 500.4050, L500.4100, L501.29184, L501.9520, L506.0400 ####[facility] [address] [place], [address] Cholesterol in HDL [Mass/Vol] 48 mg/dL Normal [facility] Comment on above: Order Comment: Order Date: 10/02/24Order Info: 785-02 - CMPOrder Info: [id number] - LIPIDOrder Info: 3051-0 - T2DAiigw Info: 3 - TSHOrder Info: 3023-08 T4F Result Comment: Micki onal Cholesterol Education Program (NCEP) guidelines: <40 mg/dL: Low HDL-cholesterol (major risk factor for CHD) >= 60 mg/dL: High HDL-cholesterol (negative risk factor for CHD) HDL-cholesterol is affected by a number of factors, e.g. smoking, exercise, hormones, sex and age. Performed By: #### L 500.4050, L500.4100, L501.71641, L501.9520, L506.0400 ####[facility] [address] [place], [address] Cholesterol in LDL [Mass/Vol] 133 mg/dL Normal [facility] Comment on above: Order Comment: Order Date: 10/02/24Order Info: 07-1 - CMPOrder Info: [id number] - LIPIDOrder Info: 3051-0 - C1CVwtao Info: 3 - TSHOrder Info: 3024-7 - T4F Result Comment: Bord cwetwr=127-711 mg/dL Higher Unee=460 mg/dL or greater Friedwald Equation for LDL-C Performed By: #### L 500.4050, L500.4100, L501.25003, L501.9520, L506.0400 ####[facility] [address] [place], [address] Cholesterol in VLDL [Mass/Vol] 34 mg/dL Normal 5-40 [facility] Comment on above: Order Comment: Order Date: 10/02/24Order Info: 0786-1 - CMPOrder Info: [id number] - LIPIDOrder Info: 3051-0 - Z9EKaabc Info: 63 - TSHOrder Info: 3023-08 - T4F Performed By: #### L 500.4050, L500.4100, L501.11572, L501.9520, L506.0400 ####[facility] [address] [place], [address] Triglyceride [Mass/Vol] 169 mg/dL Normal [facility] Comment on above: Order Comment: Order Date: 10/02/24Order Info: 0786-1 - CMPOrder Info: [id number] - LIPIDOrder Info: 3051-0 - M3NPbdfd Info: 6-3 - TSHOrder Info: 3023-08 - T4F Result Comment: The drugs N-Acetylcysteine and Metamizole may falsely depress this assay. Normal range: <150 mg/dL Borderline High: 150-199 mg/dL High: 200-499 mg/dL Very High: >500 mg/dL Performed By: #### L 500.4050, L500.4100, L501.38360, L501.9520, L506.0400 ####[facility] [address] [place], [address] Potassium measurement (mass/ volume)Ordered By: Jesus Peters on 10-06-2024 Potassium (Unsp spec) [Mass/Vol] 4.0 mmol/L 3.3-5.1 [facility] Screening total cholesterol/ high density lipoprotein (HDL) cholesterol ratioOrdered By: Jesus Peters on 10-06-2024 Cholesterol.total/Cho lesterol in HDL [Mass ratio] 4.45 {ratio} [facility] Serum creatinine measurement (mass/volume)Ordered By: Jesus Peters on 10-06-2024 Creatinine [Mass/Vol] 0.92 mg/dL 0.70-1.20 [facility] Serum globulin measurementOr dered By: Jesus Peters on 10-06-2024 Globulin (S) [Mass/Vol] 3.2 g/dL 2.2-4.2 [facility] Serum glucose measurement (m ass/volume)Ordered By: Jesus Peters on 10-06-2024 Glucose [Mass/Vol] 93 mg/dL 70-99 [facility] Serum or plasma alanine owens otransferase (ALT) measurementOrdered By: Jesus Peters on 10-06-2024 ALT [Catalytic activity/Vol] 16 U/L <35 [facility] Serum or plasma albumin iris urement (mass/volume)Ordered By: Jesus Peters on 10-06-2024 Albumin [Mass/Vol] 4.1 g/dL 3.4-4.8 [facility] Serum or plasma albumin/glob ulin mass ratioOrdered By: Jesus Peters on 10-06-2024 Albumin/Globulin [Mass ratio] 1.3 {ratio} 0.9-2.4 [facility] Serum or plasma alkaline delio sphatase measurementOrdered By: Jesus Peters on 10-06-2024 ALP [Catalytic activity/Vol] 107 U/L High 35-104 [facility] Serum or plasma calcium iris urement (mass/volume)Ordered By: Jesus Peters on 10-06-2024 Calcium [Mass/Vol] 9.6 mg/dL 7.6-11.0 [facility] Serum or plasma cholesterol in HDL measurement (mass/volume)Ordered By: Jesus Peters on 10-06-2024 Cholesterol in HDL [Mass/Vol] 48 mg/dL >40 [facility] Comment on above: National Cholesterol Education Program (NCEP) guidelines:<40 mg/dL: Low HDL-cholesterol (major risk factor for CHD)>= 60 mg/dL: High HDL-cholesterol (negative risk factor for CHD)HDL-cholesterol is affected by a number of factors, e.g. smoking, exercise, hormones, sex and age. Serum or plasma cholesterol measurement (mass/volume)Ordered By: Jesus Peters on 10-06-2024 Cholesterol [Mass/Vol] 215 mg/dL High <201 [facility] Comment on above: Cholesterol level, D esirable <200 mg/dLBorderline high cholesterol 200-239 mg/dLHigh cholesterol >=240 mg/dLRecommendations of the NCEP Adult Treatment Panel for the following risk-cutoff thresholds for the [place] population. Serum or plasma urea nitroge n measurement (mass/volume)Ordered By: Jesus Peters on 10-06-2024 Urea nitrogen [Mass/Vol] 21 mg/dL High 4-19 [facility] Sodium levelOrdered By: Jesus Peters on 10-06-2024 Sodium [Moles/Vol] 141 mmol/L 133-145 [facility] T4 Free Directon 10-06-2024 T4 FREE DIRECT 1.40 ng/dL Normal 0.76-1.46 [facility] Comment on above: Order Comment: Order Date: 10/02/24Order Info: [id number] - CMPOrder Info: [id number] - LIPIDOrder Info: [id number] - O8JEofgr Info: [id number] - TSHOrder Info: [id number] - T4F Performed By: #### L 500.4050, L500.4100, L501.36243, L501.9520, L506.0400 ####[facility] [address] [place], [address] T4 freeOrdered By: Jesus watts on 10-06-2024 Free T4 [Mass/Vol] 1.40 ng/dL 0.76-1.46 [facility] TSH DL <= 0.005 mIU/L QnOrde red By: Jesus Peters on 10-06-2024 TSH Qn 0.442 uIU/mL 0.300-4.200 [facility] Thyroid Stim Hormone (TSH)on 10-06-2024 TSH 0.442 uIU/mL Normal 0.300-4.200 [facility] Comment on above: Order Comment: Order Date: 10/02/24Order Info: [id number] - CMPOrder Info: [id number] - LIPIDOrder Info: [id number] - G6VOetrg Info: [id number] - TSHOrder Info: [id number] - T4F Performed By: #### L 500.4050, L500.4100, L501.31703, L501.9520, L506.0400 ####[facility] [address] [place], [place], [id number] Total proteinOrdered By: Ramonita Peters on 10-06-2024 Protein [Mass/Vol] 7.3 g/dL 5.9-8.4 [facility] Triglycerides measurementOrd ered By: Jesus Peters on 10-06-2024 Triglyceride [Mass/Vol] 169 mg/dL <199 [facility] Comment on above: The drugs N-Acetylcy steine and Metamizole may falsely depress this assay. Normal range: <150 mg/dLBorderline High: 150-199 mg/dLHigh: 200-499 mg/dLVery High: >500 mg/dL Anion gap in Serum or Plasma Ordered By: Jesus Peters on 06-05-2024 Anion gap [Moles/Vol] 12 mmol/L 5-15 [facility] BUN/creatinine ratioOrdered By: Jesus Peters on 06-05-2024 Urea nitrogen/Creatinine [Mass ratio] 17.5 mg/mg 10- [facility] Basic Metabolic Profile (BMP )on 06-05-2024 BUN/CRE 17.5 RATIO Normal - [facility] Comment on above: Performed By: #### L 500.2500, L501.07013, L500.4100, L501.9520, L506.0400 #### [facility] [address] [place], [place], [id number] Calcium [Mass/Vol] 10.0 mg/dL Normal 7.6-11.0 [facility] Comment on above: Performed By: #### L 500.2500, L501.53391, L500.4100, L501.9520, L506.0400 #### [facility] [address] [place], [address] Chloride [Moles/Vol] 103 mmol/L Normal 98-108 [facility] Comment on above: Performed By: #### L 500.2500, L501.22478, L500.4100, L501.9520, L506.0400 #### [facility] [address] [place], [address] CO2 [Moles/Vol] 25.9 mmol/L Normal 21.0-32.0 [facility] Comment on above: Performed By: #### L 500.2500, L501.79143, L500.4100, L501.9520, L506.0400 #### [facility] [address] [place], [address] Creatinine [Mass/Vol] 0.94 mg/dL Normal 0.70-1.20 [facility] Comment on above: Performed By: #### L 500.2500, L501.33213, L500.4100, L501.9520, L506.0400 #### [facility] [address] [place], [address] GAP 12 Normal 5-15 [facility] Comment on above: Performed By: #### L 500.2500, L501.59502, L500.4100, L501.9520, L506.0400 #### [facility] [address] [place], [address] GFR/1.73 sq M.predicted among non-blacks MDRD (S/P/Bld) [Vol rate/Area] 62 mL/min/{1.73_m2} Normal >60 [facility] Comment on above: Result Comment: mL/m in/1.73m2 CKD-EPI Creatinine Equation (2020) Performed By: #### L 500.2500, L501.60157, L500.4100, L501.9520, L506.0400 #### [facility] [address] [place], [address] Glucose [Mass/Vol] 96 mg/dL Normal 70-99 [facility] Comment on above: Performed By: #### L 500.2500, L501.58308, L500.4100, L501.9520, L506.0400 #### [facility] [address] [place], [address] Potassium [Moles/Vol] 4.3 mmol/L Normal 3.3-5.1 [facility] Comment on above: Performed By: #### L 500.2500, L501.91447, L500.4100, L501.9520, L506.0400 #### [facility] [address] [place], [address] Sodium [Moles/Vol] 141 mmol/L Normal 133-145 [facility] Comment on above: Performed By: #### L 500.2500, L501.71398, L500.4100, L501.9520, L506.0400 #### [facility] [address] [place], [address] Urea nitrogen [Mass/Vol] 17 mg/dL Normal 4-19 [facility] Comment on above: Performed By: #### L 500.2500, L501.60149, L500.4100, L501.9520, L506.0400 #### [facility] [address] [place], [address] Calculated very low density lipoprotein (VLDL) cholesterol measurementOrdered By: Jesus Peters on 06-05-2024 VLDL Cholesterol 34 mg/dL 5-40 [facility] Carbon dioxide, total [Moles /volume] in Central venous bloodOrdered By: Jesus Peters on 06-05-2024 CO2 [Moles/Vol] 25.9 mmol/L 21.0-32.0 [facility] Chloride assayOrdered By: Denver Peters on 06-05-2024 Chloride [Moles/Vol] 103 mmol/L 98-108 [facility] Free T3on 06-05-2024 Free T3 [Mass/Vol] 3.0 pg/mL Normal 2.18-3.98 [facility] Comment on above: Performed By: #### L 500.2500, L501.91509, L500.4100, L501.9520, L506.0400 #### [facility] [address] [place], [place], [id number] Free O3Gnxgbma By: Jesus watts on 06-05-2024 Free Triiodothyronine (T3) pg/dL 3.0 pg/mL 2.18-3.98 [facility] GFR/1.73 sq M.predicted david g non-blacks MDRD (S/P/Bld) [Vol rate/Area]Ordered By: Jesus Peters on 06-05-2024 Estimated GFR (MDRD) Non-Af Amer 62 >60 [facility] Comment on above: mL/min/1.73m2 CKD-EP I Creatinine Equation (2020) LDL calc ser/plasOrdered By: Jesus Peters on 06-05-2024 LDL Cholesterol, Calculated 141 mg/dL [facility] Comment on above: Lpxtqrxuaj=053-430 m g/dL & Higher Hmyu=609 mg/dL or greater Lipid Profileon 06-05-2024 CHOL:HDL 4.68 Normal [facility] Comment on above: Performed By: #### L 500.2500, L501.04096, L500.4100, L501.9520, L506.0400 #### [facility] [address] [place], [place], [id number] Cholesterol [Mass/Vol] 223 mg/dL High <=200 [facility] Comment on above: Result Comment: Chol esterol level, Desirable <200 mg/dL Borderline high cholesterol 200-239 mg/dL High cholesterol >=240 mg/dL Recommendations of the NCEP Adult Treatment Panel for the following risk-cutoff thresholds for the [place] population. Performed By: #### L 500.2500, L501.93767, L500.4100, L501.9520, L506.0400 #### [facility] [address] [place], [address] Cholesterol in HDL [Mass/Vol] 48 mg/dL Normal [facility] Comment on above: Result Comment: Micki onal Cholesterol Education Program (NCEP) guidelines: <40 mg/dL: Low HDL-cholesterol (major risk factor for CHD) >= 60 mg/dL: High HDL-cholesterol (negative risk factor for CHD) HDL-cholesterol is affected by a number of factors, e.g. smoking, exercise, hormones, sex and age. Performed By: #### L 500.2500, L501.35156, L500.4100, L501.9520, L506.0400 #### [facility] [address] [place], [address] Cholesterol in LDL [Mass/Vol] 141 mg/dL Normal [facility] Comment on above: Result Comment: Bord qeprbu=639-663 mg/dL Higher Cclt=665 mg/dL or greater Performed By: #### L 500.2500, L501.98077, L500.4100, L501.9520, L506.0400 #### [facility] [address] [place], [address] Cholesterol in VLDL [Mass/Vol] 34 mg/dL Normal 5-40 [facility] Comment on above: Performed By: #### L 500.2500, L501.00055, L500.4100, L501.9520, L506.0400 #### [facility] [address] [place], [address] Triglyceride [Mass/Vol] 172 mg/dL Normal [facility] Comment on above: Result Comment: The drugs N-Acetylcysteine and Metamizole may falsely depress this assay. Normal range: <150 mg/dL Borderline High: 150-199 mg/dL High: 200-499 mg/dL Very High: >500 mg/dL Performed By: #### L 500.2500, L501.53203, L500.4100, L501.9520, L506.0400 #### [facility] [place], [address] Potassium (Unsp spec) [Mass/ Vol]Ordered By: Jesus Peters on 06-05-2024 Potassium [Moles/Vol] 4.3 mmol/L 3.3-5.1 [facility] Screening total cholesterol/ high density lipoprotein (HDL) cholesterol ratioOrdered By: Jesus Peters on 06-05-2024 Cholesterol.total/Cho lesterol in HDL [Mass ratio] 4.68 {ratio} [facility] Serum creatinine measurement (mass/volume)Ordered By: Jesus Peters on 06-05-2024 Creatinine [Mass/Vol] 0.94 mg/dL 0.70-1.20 [facility] Serum glucose measurement (m ass/volume)Ordered By: Jesus Peters on 06-05-2024 Glucose [Mass/Vol] 96 mg/dL 70-99 [facility] Serum or plasma calcium iris urement (mass/volume)Ordered By: Jesus Peters on 06-05-2024 Calcium [Mass/Vol] 10.0 mg/dL 7.6-11.0 [facility] Serum or plasma cholesterol in HDL measurement (mass/volume)Ordered By: Jesus Peters on 06-05-2024 Cholesterol in HDL [Mass/Vol] 48 mg/dL >40 [facility] Comment on above: National Cholesterol Education Program (NCEP) guidelines:<40 mg/dL: Low HDL-cholesterol (major risk factor for CHD)>= 60 mg/dL: High HDL-cholesterol (negative risk factor for CHD)HDL-cholesterol is affected by a number of factors, e.g. smoking, exercise, hormones, sex and age. Serum or plasma cholesterol measurement (mass/volume)Ordered By: Jesus Peters on 06-05-2024 Cholesterol [Mass/Vol] 223 mg/dL High <201 [facility] Comment on above: Cholesterol level, D esirable <200 mg/dLBorderline high cholesterol 200-239 mg/dLHigh cholesterol >=240 mg/dLRecommendations of the NCEP Adult Treatment Panel for the following risk-cutoff thresholds for the [place] population. Serum or plasma urea nitroge n measurement (mass/volume)Ordered By: Jesus Peters on 06-05-2024 Urea nitrogen [Mass/Vol] 17 mg/dL 4-19 [facility] Sodium levelOrdered By: Jesus Peters on 06-05-2024 Sodium [Moles/Vol] 141 mmol/L 133-145 [facility] T4 Free Directon 06-05-2024 T4 FREE DIRECT 1.50 ng/dL High 0.76-1.46 [facility] Comment on above: Performed By: #### L 500.2500, L501.25162, L500.4100, L501.9520, L506.0400 #### [facility] [address] [place], [address] T4 freeOrdered By: Jesus watts on 06-05-2024 Free T4 [Mass/Vol] 1.50 ng/dL High 0.76-1.46 [facility] TSH DL <= 0.005 mIU/L QnOrde red By: Jesus Peters on 06-05-2024 Thyroid Stimulating Hormone (TSH) 0.508 uIU/mL 0.300-4.200 [facility] Thyroid Stim Hormone (TSH)on 06-05-2024 TSH 0.508 uIU/mL Normal 0.300-4.200 [facility] Comment on above: Performed By: #### L 500.2500, L501.72821, L500.4100, L501.9520, L506.0400 #### [facility] [address] [place], [address] Triglycerides measurementOrd ered By: Jesus Peters on 06-05-2024 Triglyceride [Mass/Vol] 172 mg/dL <199 [facility] Comment on above: The drugs N-Acetylcy steine and Metamizole may falsely depress this assay. Normal range: <150 mg/dLBorderline High: 150-199 mg/dLHigh: 200-499 mg/dLVery High: >500 mg/dL Myoglobin, Serumon Myoglobin, Ser 37 ng/mL Normal 25-58 [facility] Comment on above: Result Comment: Perf ormed at: [employer] [facility] [address] [place], [place] [id number] Fire And Safety Helper: Tre Calloway PhD, Phone: [phone] Performed By: #### L 501.3620, L3600.5100 #### [facility] [address] [place], [place], [id number] CPK Total, Creatine Kinaseon 05-20-2024 CPK TOTAL 109 U/L Normal [facility] Comment on above: Performed By: #### L 501.3620, L3600.5100 #### [facility] [address] [place], [address] Serum myoglobin measurementO rdered By: Erwin Wiley on 05-20-2024 Myoglobin [Mass/Vol] 37 ng/mL [facility] Comment on above: Performed at: [facility] [address] [place], [place] [id number] Director: Tre Calloway PhD, Phone: [phone] Serum or plasma creatine kin ase activityOrdered By: Erwin Wiley on 05-20-2024 CK [Catalytic activity/Vol] 109 U/L [facility] Angiotensin Convert Enzymeon 04-08-2024 ANGIOT-CONV.ENZ 15 U/L Normal 82 [facility] Comment on above: Result Comment: Perf ormed at: [facility] [facility] [address] [place], [place] [id number] Fire And Safety Helper: Tre Calloway PhD, Phone: [phone] Performed By: #### L 101.9900, L3100.6900, L501.6710, L3400.8000 ####[facility] [address] [place], [place], [id number] Quantiferon TB-Gold+on 04-08 QFT MITOGEN TATUM > 10.00 Normal . [facility] Comment on above: Performed By: #### L 101.9900, L3100.6900, L501.6710, L3400.8000 ####[facility] [address] [place], [address] QFT NIL VALUE 0.03 IU/mL Normal . [facility] Comment on above: Performed By: #### L 101.9900, L3100.6900, L501.6710, L3400.8000 ####[facility] [address] [place], [address] QFT TB GOLD+ Comment Normal . [facility] Comment on above: Result Comment: Myles [...] for the test. Performed By: #### L 101.9900, L3100.6900, L501.6710, L3400.8000 ####[facility] [address] [place], [address] QFT TB POS CRIT Negative Normal Negative [facility] Comment on above: Result Comment: No [...] Chemiluminescence immunoassay methodology Performed By: #### L 101.9900, L3100.6900, L501.6710, L3400.8000 ####[facility] [address] [place], [address] QFT TB1+ AG TATUM 0.04 IU/mL Normal . [facility] Comment on above: Performed By: #### L 101.9900, L3100.6900, L501.6710, L3400.8000 ####[facility] [address] [place], [address] QFT TB2+ AG TATUM 0.03 IU/mL Normal . [facility] Comment on above: Performed By: #### L 101.9900, L3100.6900, L501.6710, L3400.8000 ####[facility] [address] [place], [address] C-reactive protein measureme nt by high sensitivity methodOrdered By: Erwin Wiley on 04-03-2024 C-Reactive Protein Extended Range 13.70 mg/L High 0.0-3.0 [facility] Comment on above: C-Reactive Protein ( CRP) provides useful information for thediagnosis, therapy and monitoring of inflammatory processesand associated diseases. For the evaluation of Relative Riskfor Cardiovascular Disease, a High Sensitivity CRP (HSCRP)should be ordered. CRPon 04-03-2024 C-REACTIVE PROT 13.70 mg/L High 0.0-3.0 [facility] Comment on above: Result Comment: C-Re active Protein (CRP) provides useful information for the diagnosis, therapy and monitoring of inflammatory processes and associated diseases. For the evaluation of Relative Risk for Cardiovascular Disease, a High Sensitivity CRP (HSCRP) should be ordered. Performed By: #### L 101.9900, L3100.6900, L501.6710, L3400.8000 ####[facility] [address] [place], [address] Erythrocyte Sed Rateon 04-03 SED RATE 53 mm/hr High 0-30 [facility] Comment on above: Performed By: #### L 101.9900, L3100.6900, L501.6710, L3400.8000 ####[facility] [address] [place], [address] Erythrocyte sedimentation ra teOrdered By: Erwin Wiley on 04-03-2024 ESR (Bld) [Velocity] 53 mm/h High 0-30 [facility] M. tuberculosis tuberculin s yuan IFN-g Ql (Bld)Ordered By: Erwin Wiley on 04-03-2024 TB Test (QFT) Antigen 1 0.04 IU/mL . [facility] Quantiferon-TB Gold Plus rafael tOrdered By: Erwin Wiley on 04-03-2024 TB Test (QFT) Comment . [facility] Comment on above: QuantiFERON-TB Gold Plus [...] Test (QFT) Antigen 2 0.03 IU/mL . [facility] TB Test (QFT) Mitogen > 10.00 IU/mL . [facility] TB Test (QFT) Nil 0.03 IU/mL . [facility] TB Test (QFT) Positive Criteria Negative Negative [facility] Comment on above: No response to [...] converting enzyme [Catalytic activity/Vol] 15 U/L 14-82 [facility] Comment on above: Performed at: [address] [id number] Director: Tre Calloway PhD, Phone: [phone] Basic Metabolic Profile (BMP )on 03-20-2024 BUN/CRE 19.0 RATIO Normal 10-20 [facility] Comment on above: Order Comment: Order Date: 01/10/24Order Info: 3016-3 - TSH Performed By: #### L 501.97329, L506.0400, L101.9900, L500.2500 ####[facility] [address] [place], [address] CA,Total 9.7 mg/dL Normal 8.5-10.1 [facility] Comment on above: Order Comment: Order Date: 01/10/24Order Info: 3016-3 - TSH Performed By: #### L 501.29178, L506.0400, L101.9900, L500.2500 ####[facility] [address] [place], [address] Chloride [Moles/Vol] 105 mmol/L Normal 98-107 [facility] Comment on above: Order Comment: Order Date: 01/10/24Order Info: 3016-3 - TSH Performed By: #### L 501.73239, L506.0400, L101.9900, L500.2500 ####[facility] [address] [place], [address] CO2 [Moles/Vol] 25.0 mmol/L Normal 21.0-32.0 [facility] Comment on above: Order Comment: Order Date: 01/10/24Order Info: 3016-3 - TSH Performed By: #### L 501.17658, L506.0400, L101.9900, L500.2500 ####[facility] [address] [place], [address] Creatinine [Mass/Vol] 0.89 mg/dL Normal 0.55-1.02 [facility] Comment on above: Order Comment: Order Date: 01/10/24Order Info: 3016-3 - TSH Result Comment: The validity of the calculated GFR GFRAA in patients over 70 years has not been determined. Clinical correlation is essential. Performed By: #### L 501.66378, L506.0400, L101.9900, L500.2500 ####[facility] [address] [place], [address] EST GFR - AA 78 mL/min Normal >60 [facility] Comment on above: Order Comment: Order Date: 01/10/24Order Info: 3016-3 - TSH Result Comment: Afri can Citizen [place] GFR Calc Performed By: #### L 501.71523, L506.0400, L101.9900, L500.2500 ####[facility] [address] [place], [address] GAP 8 Normal 5-15 [facility] Comment on above: Order Comment: Order Date: 01/10/24Order Info: 3015-3 - TSH Performed By: #### L 501.51360, L506.0400, L101.9900, L500.2500 ####[facility] [address] [place], [address] GFR/1.73 sq M.predicted among non-blacks MDRD (S/P/Bld) [Vol rate/Area] 65 mL/min/{1.73_m2} Normal >60 [facility] Comment on above: Order Comment: Order Date: 01/10/24Order Info: 3015-3 - TSH Result Comment: Non- GFR Calc Performed By: #### L 501.11481, L506.0400, L101.9900, L500.2500 ####[facility] [address] [place], [address] Glucose [Mass/Vol] 85 mg/dL Normal 74-106 [facility] Comment on above: Order Comment: Order Date: 01/10/24Order Info: 3015-3 - TSH Performed By: #### L 501.00523, L506.0400, L101.9900, L500.2500 ####[facility] [address] [place], [address] Potassium [Moles/Vol] 4.1 mmol/L Normal 3.5-5.1 [facility] Comment on above: Order Comment: Order Date: 01/10/24Order Info: 3016-3 - TSH Performed By: #### L 501.22447, L506.0400, L101.9900, L500.2500 ####[facility] [address] [place], [address] Sodium [Moles/Vol] 138 mmol/L Normal 136-145 [facility] Comment on above: Order Comment: Order Date: 01/10/24Order Info: 3016-3 - TSH Performed By: #### L 501.81910, L506.0400, L101.9900, L500.2500 ####[facility] [address] [place], [address] Urea nitrogen [Mass/Vol] 17 mg/dL Normal 7-18 [facility] Comment on above: Order Comment: Order Date: 01/10/24Order Info: 3016-3 - TSH Performed By: #### L 501.60748, L506.0400, L101.9900, L500.2500 ####[facility] [address] [place], [address] Blood urea nitrogen (BUN)/cr eatinine ratioOrdered By: Jesus Peters on 03-20-2024 Urea nitrogen/Creatinine [Mass ratio] 19.0 mg/mg 10-20 [facility] Carbon dioxide measurementOr dered By: Jesus Peters on 03-20-2024 CO2 [Moles/Vol] 25.0 mmol/L 21.0-32.0 [facility] Chloride measurementOrdered By: Jesus Peters on 03-20-2024 Chloride [Moles/Vol] 105 mmol/L 98-107 [facility] Direct serum free thyroxine (FT4) measurementOrdered By: Jesus Peters on 03-20-2024 Free T4 [Mass/Vol] 1.55 ng/dL High 0.76-1.46 [facility] Erythrocyte Sed Rateon 03-20 SED RATE 24 mm/hr Normal 0-30 [facility] Comment on above: Performed By: #### L 501.17972, L506.0400, L101.9900, L500.2500 ####[facility] [address] [place], [place], [address] Erythrocyte sedimentation ra teOrdered By: Jesus Peters on 03-20-2024 ESR (Bld) [Velocity] 24 mm/h 0-30 [facility] Estimated glomerular filtrat ion rate (GFR) AmericanOrdered By: Jesus Peters on 03-20-2024 Estimated GFR (MDRD) Amer 78 mL/min >60 [facility] Comment on above: GFR Calc Free T3on 03-20-2024 Free T3 [Mass/Vol] 2.5 pg/mL Normal 2.18-3.98 [facility] Comment on above: Order Comment: Order Date: 01/10/24Order Info: 3016-3 - TSH Performed By: #### L 501.51462, L506.0400, L101.9900, L500.2500 ####[facility] [address] [place], [address] Free C6Vworvgw By: Jesus watts on 03-20-2024 Free Triiodothyronine (T3) pg/dL 2.5 pg/mL 2.18-3.98 [facility] Glomerular filtration rate ( GFR) estimationOrdered By: Jesus Peters on 03-20-2024 Estimated GFR (MDRD) Non-Af Amer 65 mL/min >60 [facility] Comment on above: Non- GFR Calc Glucose measurementOrdered B y: Jesus Peters on 03-20-2024 Glucose [Mass/Vol] 85 mg/dL 74-106 [facility] Potassium measurementOrdered By: Jesus Peters on 03-20-2024 Potassium [Moles/Vol] 4.1 mmol/L 3.5-5.1 [facility] Serum anion gap measurementO rdered By: Jesus Peters on 03-20-2024 Anion gap [Moles/Vol] 8 mmol/L 5-15 [facility] Serum or plasma calcium iris urement (mass/volume)Ordered By: Jesus Peters on 03-20-2024 Calcium [Mass/Vol] 9.7 mg/dL 8.5-10.1 [facility] Serum or plasma creatinine m easurement (mass/volume)Ordered By: Jesus Peters on 03-20-2024 Creatinine [Mass/Vol] 0.89 mg/dL 0.55-1.02 [facility] Comment on above: The validity of the calculated GFR & GFRAA in patients over 70 years has not been determined. Clinical correlation is essential. Serum or plasma urea nitroge n measurement (mass/volume)Ordered By: Jesus Peters on 03-20-2024 Urea nitrogen [Mass/Vol] 17 mg/dL 7-18 [facility] Sodium levelOrdered By: Jesus Peters on 03-20-2024 Sodium [Moles/Vol] 138 mmol/L 136-145 [facility] T4 Free Directon 03-20-2024 T4 FREE DIRECT 1.55 ng/dL High 0.76-1.46 [facility] Comment on above: Order Comment: Order Date: 01/10/24Order Info: 3016-3 - TSH Performed By: #### L 501.18690, L506.0400, L101.9900, L500.2500 ####[facility] [address] [place], [place], [address] TSH QnOrdered By: Jesus vaughan on 03-20-2024 Thyroid Stimulating Hormone (TSH) 0.145 uIU/mL Low 0.358-3.740 [facility] Thyroid Stim Hormone (TSH)on 03-20-2024 TSH 0.145 uIU/mL Low 0.358-3.740 [facility] Comment on above: Order Comment: Order Date: 01/10/24Order Info: [id number] - TSH Performed By: #### L 501.9520 ####[facility] [address] [place], [place], [address] CNPNon 03-11-2024 CNPN Telephone ([employer]) ----- MADDISON RIVERA ([id number]) 1945 F Date Time Provider Department 03/11/24 KAMILA MERCADO During your visit today, we [...] - Other: See Comments Comments: PH SYCOTIC [id number] REDUCTASE INHIBIT*05/06/2021 14 - Other: See Comments [...] Encounter Status:Closed by KAMILA MERCADO on 03/11/24 [facility] Telephone (CTI) ----- MADDISON RIVERA ([id number]) 1945 F Date Time Provider Department 03/11/24 LONNIE BARBA CTI During your visit today, we recorded the following information about you: Brandi Carbajal 03/11/2024 4:40 PM Signed Patient is requesting disc and reports of 03/04/24 CT chest and 11/25/24 CT chest. 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 OK to leave a detailed VM on cell phone [phone]. 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 AT [facility] Pt knows Allergies As of Date: [...] - Other: See Comments Comments: PH SYCOTIC [id number] REDUCTASE INHIBIT*05/06/2021 14 - Other: See Comments [...] Status:Closed by BRANDI CARBAJAL on 05/08/24 Normal [facility] CT CHEST WO IVCONon 03-04-19 CT CHEST WO IVCON * * *Final Report* * * DATE OF EXAM: Mar 04 2024 8:21AM [facility] 0541 - CT CHEST WO IVCON [...] be communicated with the ordering provider via [employer] staff message or phone message by [employer] within 2 business days of report finalization. --END OF FINDING-- Supervisor Rod Placing: BILL Transcribe Date/Time: Mar 06 2024 10:32A Dictated by : KAYDEN AKERS MD This examination was interpreted and the report reviewed and electronically signed by: KAYDEN AKERS MD on Mar 06 2024 10:44AM EST [id number] ACTIONABLE Invalid Interpretation Code [facility] Basic Metabolic Profile (BMP )on 01-10-2024 BUN/CRE 22.3 RATIO High 10-20 [facility] Comment on above: Performed By: #### L 500.2500, L501.9520, L501.59442, L506.0400, L100.0100 ####[facility] [address] [place], [address] CA,Total 9.8 mg/dL Normal 8.5-10.1 [facility] Comment on above: Performed By: #### L 500.2500, L501.9520, L501.95994, L506.0400, L100.0100 ####[facility] [address] [place], [address] Chloride [Moles/Vol] 105 mmol/L Normal 98-107 [facility] Comment on above: Performed By: #### L 500.2500, L501.9520, L501.60349, L506.0400, L100.0100 ####[facility] [address] [place], [address] CO2 [Moles/Vol] 25.0 mmol/L Normal 21.0-32.0 [facility] Comment on above: Performed By: #### L 500.2500, L501.9520, L501.31822, L506.0400, L100.0100 ####[facility] [address] [place], [address] Creatinine [Mass/Vol] 1.12 mg/dL High 0.55-1.02 [facility] Comment on above: Result Comment: The validity of the calculated GFR GFRAA in patients over 70 years has not been determined. Clinical correlation is essential. Performed By: #### L 500.2500, L501.9520, L501.16472, L506.0400, L100.0100 ####[facility] [address] [place], [address] EST GFR - AA 61 mL/min Normal >60 [facility] Comment on above: Result Comment: Afri can Citizen [place] GFR Calc Performed By: #### L 500.2500, L501.9520, L501.80108, L506.0400, L100.0100 ####[facility] [address] [place], [address] GAP 6 Normal 5-15 [facility] Comment on above: Performed By: #### L 500.2500, L501.9520, L501.33667, L506.0400, L100.0100 ####[facility] [address] [place], [address] GFR/1.73 sq M.predicted among non-blacks MDRD (S/P/Bld) [Vol rate/Area] 50 mL/min/{1.73_m2} Low >60 [facility] Comment on above: Result Comment: Non- GFR Calc Performed By: #### L 500.2500, L501.9520, L501.43389, L506.0400, L100.0100 ####[facility] [address] [place], [address] Glucose [Mass/Vol] 91 mg/dL Normal 74-106 [facility] Comment on above: Performed By: #### L 500.2500, L501.9520, L501.38160, L506.0400, L100.0100 ####[facility] [address] [place], [address] Potassium [Moles/Vol] 4.1 mmol/L Normal 3.5-5.1 [facility] Comment on above: Performed By: #### L 500.2500, L501.9520, L501.25151, L506.0400, L100.0100 ####[facility] [address] [place], [address] Sodium [Moles/Vol] 136 mmol/L Normal 136-145 [facility] Comment on above: Performed By: #### L 500.2500, L501.9520, L501.30879, L506.0400, L100.0100 ####[facility] [address] [place], [address] Urea nitrogen [Mass/Vol] 25 mg/dL High 7-18 [facility] Comment on above: Performed By: #### L 500.2500, L501.9520, L501.64817, L506.0400, L100.0100 ####[facility] [address] [place], [address] CBC W/Diff, Automatedon 11-2 Absolute Lymph 2.18 X10 3/uL Normal 0.83-4.51 [facility] Comment on above: Performed By: #### L 500.2500, L501.9520, L501.95305, L506.0400, L100.0100 ####[facility] [address] [place], [address] Absolute Neut 7.2 X10 3/uL Normal 2.0-7.7 [facility] Comment on above: Performed By: #### L 500.2500, L501.9520, L501.76719, L506.0400, L100.0100 ####[facility] [address] [place], [address] Basophils/100 WBC (Bld) 1.0 % Normal 0-1 [facility] Comment on above: Performed By: #### L 500.2500, L501.9520, L501.28918, L506.0400, L100.0100 ####[facility] [address] [place], [address] Eosinophils/100 WBC (Bld) 3.9 % Normal 0-5 [facility] Comment on above: Performed By: #### L 500.2500, L501.9520, L501.74240, L506.0400, L100.0100 ####[facility] [address] [place], [address] Erythrocyte distribution width (RBC) [Ratio] 13.7 % Normal 11.6-14.6 [facility] Comment on above: Performed By: #### L 500.2500, L501.9520, L501.33631, L506.0400, L100.0100 ####[facility] [address] [place], [address] Hematocrit (Bld) [Volume fraction] 46.7 % Normal 37-47 [facility] Comment on above: Performed By: #### L 500.2500, L501.9520, L501.32110, L506.0400, L100.0100 ####[facility] [address] [place], [address] Hemoglobin (Bld) [Mass/Vol] 14.7 g/dL Normal 12.0-15.0 [facility] Comment on above: Performed By: #### L 500.2500, L501.9520, L501.72475, L506.0400, L100.0100 ####[facility] [address] [place], [address] IG% 0.900 Normal 0.0-0.9 [facility] Comment on above: Result Comment: IG% - Immature Granulocytes (promyelocytes, myelocytes and metamyelocytes) > 1% indicates that a LEFT SHIFT is Present. Performed By: #### L 500.2500, L501.9520, L501.09474, L506.0400, L100.0100 ####[facility] [address] [place], [address] Lymphocytes/100 WBC (Bld) 20.0 % Normal 19-41 [facility] Comment on above: Performed By: #### L 500.2500, L501.9520, L501.94079, L506.0400, L100.0100 ####[facility] [address] [place], [address] MCH (RBC) [Entitic mass] 29.2 pg Normal 27.0-32.0 [facility] Comment on above: Performed By: #### L 500.2500, L501.9520, L501.42418, L506.0400, L100.0100 ####[facility] [address] [place], [address] MCHC (RBC) [Mass/Vol] 31.5 g/dL Low 32-36 [facility] Comment on above: Performed By: #### L 500.2500, L501.9520, L501.11293, L506.0400, L100.0100 ####[facility] [address] [place], [address] MCV (RBC) [Entitic vol] 92.7 fL Normal 81-99 [facility] Comment on above: Performed By: #### L 500.2500, L501.9520, L501.77593, L506.0400, L100.0100 ####[facility] [address] [place], [address] Monocytes/100 WBC (Bld) 8.2 % Normal 0-10 [facility] Comment on above: Performed By: #### L 500.2500, L501.9520, L501.58987, L506.0400, L100.0100 ####[facility] [address] [place], [address] Neutrophils/100 WBC (Bld) 66.0 % Normal 47-70 [facility] Comment on above: Performed By: #### L 500.2500, L501.9520, L501.37744, L506.0400, L100.0100 ####[facility] [address] [place], [address] Nucleated RBC (Bld) [#/Vol] 0 10*3/uL Normal 0-5 [facility] Comment on above: Performed By: #### L 500.2500, L501.9520, L501.44794, L506.0400, L100.0100 ####[facility] [address] [place], [address] Platelet mean volume (Bld) [Entitic vol] 12.4 fL High 6.2-12.0 [facility] Comment on above: Performed By: #### L 500.2500, L501.9520, L501.57088, L506.0400, L100.0100 ####[facility] [address] [place], [address] Platelets (Bld) [#/Vol] 297 10*3/uL Normal 150-450 [facility] Comment on above: Performed By: #### L 500.2500, L501.9520, L501.85571, L506.0400, L100.0100 ####[facility] [address] [place], [address] RBC (Bld) [#/Vol] 5.04 10*6/uL Normal 4.2-5.4 [facility] Comment on above: Performed By: #### L 500.2500, L501.9520, L501.69591, L506.0400, L100.0100 ####[facility] [address] [place], [address] RDW SD 46.5 fl High 35.1-43.9 [facility] Comment on above: Performed By: #### L 500.2500, L501.9520, L501.69385, L506.0400, L100.0100 ####[facility] [address] [place], [address] WBC (Bld) [#/Vol] 10.9 10*3/uL Normal 4.4-11.0 [facility] Comment on above: Performed By: #### L 500.2500, L501.9520, L501.44371, L506.0400, L100.0100 ####[facility] [address] [place], [address] Free T3on 01-10-2024 Free T3 [Mass/Vol] 2.0 pg/mL Low 2.18-3.98 [facility] Comment on above: Performed By: #### L 500.2500, L501.9520, L501.09964, L506.0400, L100.0100 ####[facility] [address] [place], [address] T4 Free Directon 01-10-2024 T4 FREE DIRECT 1.30 ng/dL Normal 0.76-1.46 [facility] Comment on above: Performed By: #### L 500.2500, L501.9520, L501.98253, L506.0400, L100.0100 ####[facility] [address] [place], [place], [address] Thyroid Stim Hormone (TSH)on 01-10-2024 TSH 2.910 uIU/mL Normal 0.358-3.740 [facility] Comment on above: Performed By: #### L 500.2500, L501.9520, L501.28267, L506.0400, L100.0100 ####[facility] [address] [place], [place], [address] CNOVon 12-03-2023 CNOV Office Visit (GENSWS ) ----- MADDISON RIVERA ([id number]) 1945 F Date Time Provider Department 12/03/23 [...] mm nodule posterior left lower lobe (7:118) [facility] It is recommended by the radiologist for [...] Macrocrystalline], Mobic [Meloxicam], Morphine, Nitrofurantoin, Penicillins, Prednisone, Aewgblp-Cut-Kva Reductase Inhibitors, Sulfa (Sulfonamide Antibiotics), Zinc, and [...] for pa (more content not included)... Normal [facility] CT CHEST WO IVCONon 11-26-19 CT CHEST WO IVCON * * *Final Report* * * DATE OF EXAM: Nov 26 2023 8:32AM [facility] 0541 - CT CHEST WO IVCON [...] initial exam) is recommended. --END OF FINDING-- Supervisor Rod Placing: BILL Transcribe Date/Time: Nov 29 2023 1:14P Dictated by : JACKIE KNOX MD This examination was interpreted and the report reviewed and electronically signed by: JACKIE KNOX MD on Nov 29 2023 1:52PM EST [id number] ACTIONABLE Invalid Interpretation Code [facility] CNOVon 11-12-2023 CNOV Office Visit (GENSWS ) ----- MADDISON RIVERA ([id number]) 1945 F Date Time Provider Department 11/12/23 4:15 PM KAMILA MERCADOS During your visit today, we recorded the following information about you: Temperature Pulse Blood pressure Weight 98.1 degrees 85/minute 141/84 76.7 kg Height 1.702 m Raquel WadsworthXIN 11/12/2023 4:01 PM Signed REVIEW OF SYSTEMS: [...] Mammogram screening? 2013 Last Colonoscopy: 2022 XIN Perez, Kamila Cruz MD 11/13/2023 3:17 PM Signed Maddison Rivera [...] she was seen by plastic surgery at [facility]. Recommendations were made for pain management [...] Left 06/27/2019 CATARACT SURGERY, COMPLEX 2006 bilateral COLONOSCOPY 12/15/2022 no repeat due to age. LAPAROSCOPY SURG CHOLECYSTECTOMY Cholecystecto (more content not included)... Normal [facility] Basophil percentageOrdered B y: Jesus Peters on 05-21-2023 Chloride [Moles/Vol] 105 mmol/L 98-107 [facility] Cholesterol [Mass/Vol] 250 mg/dL <200 [facility] Comment on above: <200 mg/dL Desirable 200-240 mg/dL Borderline >240 mg/dL High Risk Glucose [Mass/Vol] 98 mg/dL 74-106 [facility] Potassium [Moles/Vol] 4.1 mmol/L 3.5-5.1 [facility] Sodium [Moles/Vol] 139 mmol/L 136-145 [facility] Triglyceride [Mass/Vol] 225 mg/dL <199 [facility] Comment on above: The drugs N-Acetylcy steine and Metamizole may falsely depress this assay.Serum Triglycerides Reference Interval Normal <150 mg/dL Borderline high 150 - 199 mg/dL High 200 - 499 mg/dL Very High > or = 500 mg/dL Laboratory - Chemistry and C hemistry - challengeOrdered By: Jesus Peters on 05-21-2023 Cholesterol in HDL [Mass/Vol] 45 mg/dL >40 [facility] Comment on above: The drugs N-Acetylcy steine and Metamizole may falsely depress this assay. Reference Range HDL <40 mg/dL Low HDL Cholesterol HDL >or= 60 mg/dL High HDL Cholesterol Cholesterol in LDL [Mass/Vol] 160 mg/dL 0-130 [facility] CO2 [Moles/Vol] 29.0 mmol/L 21.0-32.0 [facility] Urea nitrogen/Creatinine [Mass ratio] 24.1 mg/mg 10-20 [facility] No Panel InformationOrdered By: Jesus Peters on 05-21-2023 Estimated GFR (MDRD) Amer 81 mL/min >60 [facility] Comment on above: GFR Calc Estimated GFR (MDRD) Non-Af Amer 67 mL/min >60 [facility] Comment on above: Non- GFR Calc Vitamin D 25-Hydroxy 42.6 ng/mL [facility] Comment on above: Vitamin D 25(OH) Sta tus Range Deficiency <20 ng/mL (50nmol/L) Insufficiency 20 - 30 ng/mL (50 - 75 nmol/L) Sufficiency 30 - 100 ng/mL (75 - 250 nmol/L) Toxicity >100 ng/mL (>250 nmol/L) VLDL Cholesterol 45 mg/dL 5-40 [facility] Serum or plasma calcium iris urement (mass/volume)Ordered By: Jesus Peters on 05-21-2023 Calcium [Mass/Vol] 9.3 mg/dL 8.5-10.1 [facility] Serum or plasma creatinine m easurement (mass/volume)Ordered By: Jesus Peters on 05-21-2023 Creatinine [Mass/Vol] 0.87 mg/dL 0.55-1.02 [facility] Comment on above: The validity of the calculated GFR & GFRAA in patients over 70 years has not been determined. Clinical correlation is essential. Serum or plasma thyroid stim ulating hormone (TSH) measurement (units/volume)Ordered By: Jesus Peters on 05-21-2023 TSH Qn 1.65 uIU/mL 0.358-3.74 [facility] Serum or plasma urea nitroge n measurement (mass/volume)Ordered By: Jesus Peters on 05-21-2023 Urea nitrogen [Mass/Vol] 21 mg/dL 7-18 [facility] Thin prep Papanicolaou smear with manual screeningOrdered By: Jesus Peters on 05-21-2023 Thin prep Papanicolaou smear with manual screening 5 5-15 [facility] Basophil percentageOrdered B y: Jesus Peters on 02-21-2023 Chloride [Moles/Vol] 107 mmol/L 98-107 [facility] Cholesterol [Mass/Vol] 262 mg/dL <200 [facility] Comment on above: <200 mg/dL Desirable 200-240 mg/dL Borderline >240 mg/dL High Risk Glucose [Mass/Vol] 88 mg/dL 74-106 [facility] Potassium [Moles/Vol] 4.1 mmol/L 3.5-5.1 [facility] Sodium [Moles/Vol] 140 mmol/L 136-145 [facility] Triglyceride [Mass/Vol] 280 mg/dL <199 [facility] Comment on above: The drugs N-Acetylcy steine and Metamizole may falsely depress this assay.Serum Triglycerides Reference Interval Normal <150 mg/dL Borderline high 150 - 199 mg/dL High 200 - 499 mg/dL Very High > or = 500 mg/dL Laboratory - Chemistry and C hemistry - challengeOrdered By: Jesus Peters on 02-21-2023 CO2 [Moles/Vol] 27.0 mmol/L 21.0-32.0 [facility] Free T4 [Mass/Vol] 1.31 ng/dL 0.76-1.46 [facility] Urea nitrogen/Creatinine [Mass ratio] 25.2 mg/mg 10-20 [facility] No Panel InformationOrdered By: Jesus Peters on 02-21-2023 Estimated GFR (MDRD) Amer 81 mL/min >60 [facility] Comment on above: GFR Calc Estimated GFR (MDRD) Non-Af Amer 67 mL/min >60 [facility] Comment on above: Non- GFR Calc Free Triiodothyronine (T3) pg/dL 2.4 pg/mL 2.18-3.98 [facility] Thyroid Stimulating Hormone (TSH) 1.61 uIU/mL 0.358-3.74 [facility] Serum or plasma calcium iris urement (mass/volume)Ordered By: Jesus Peters on 02-21-2023 Calcium [Mass/Vol] 9.7 mg/dL 8.5-10.1 [facility] Serum or plasma cholesterol in HDL measurement (mass/volume)Ordered By: Jesus Peters on 02-21-2023 Cholesterol in HDL [Mass/Vol] 47 mg/dL >40 [facility] Comment on above: The drugs N-Acetylcy steine and Metamizole may falsely depress this assay. Reference Range HDL <40 mg/dL Low HDL Cholesterol HDL >or= 60 mg/dL High HDL Cholesterol Serum or plasma cholesterol in VLDL measurement (mass/volume)Ordered By: Jesus Peters on 02-21-2023 Cholesterol in VLDL [Mass/Vol] 56 mg/dL 5-40 [facility] Serum or plasma creatinine m easurement (mass/volume)Ordered By: Jesus Peters on 02-21-2023 Creatinine [Mass/Vol] 0.87 mg/dL 0.55-1.02 [facility] Comment on above: The validity of the calculated GFR & GFRAA in patients over 70 years has not been determined. Clinical correlation is essential. Serum or plasma low density lipoprotein (LDL) cholesterol measurement (mass/volume)Ordered By: Jesus Peters on 02-21-2023 Cholesterol in LDL [Mass/Vol] 159 mg/dL 0-130 [facility] Serum or plasma urea nitroge n measurement (mass/volume)Ordered By: Jesus Peters on 02-21-2023 Urea nitrogen [Mass/Vol] 22 mg/dL 7-18 [facility] Thin prep Papanicolaou smear with manual screeningOrdered By: Jesus Peters on 02-21-2023 Thin prep Papanicolaou smear with manual screening 6 5-15 [facility] COLONOSCOPY SCREENINGon 11-20 [facility] SURGICAL PATHOLOGYon 023 Case Report Surgical Pathology [place] Case: [id number] Authorizing Provider: Kamila Mercado MD Collected: 11/27/2022 10:39 AM Ordering Location: General Surgery Received: 11/27/2022 04:13 PM Pathologist: Teresa Goncalves MD Specimen: SKIN EXCISION, left thigh [facility] Clinical History skin excision of lef t thigh [facility] Diagnosis Comment The lesion extends t o the deep and lateral aspects of the specimen. [facility] FINAL DIAGNOSIS A. Skin, left thigh, excision: - Basal cell carcinoma, nodular type, see comment. MP/DF/yaz 11/28/2022 [facility] Gross Description A. SKIN EXCISION Received in formalin is a 0.7 x 0.4 x 0.3 cm shave of skin. On the skin surface there is a 0.5 cm pace elevated area. The specimen is bisected. Totally submitted in one cassette. Gross examination performed at [facility], [facility] [place] [address] FFS 11/27/2022 9:04 PM [facility] Performing Lab Diagnostic interpret ation performed at [facility], [address] [facility] [address] CLIA# [id number] Household Cook: eLn Dia M.D. [facility] Laboratory - Chemistry and C hemistry - challengeOrdered By: Jesus Peters on 11-08-2022 Free T4 [Mass/Vol] 1.17 ng/dL 0.76-1.46 [facility] No Panel InformationOrdered By: Jesus Peters on 11-08-2022 Free Triiodothyronine (T3) pg/dL 2.1 pg/mL 2.18-3.98 [facility] Thyroid Stimulating Hormone (TSH) 1.75 uIU/mL 0.358-3.74 [facility] ALLIED HEALTHon 08-31-2022 [facility] HNO ID: [id number] Author: RT Bina(R) Service: Radiology Author Type: Technologist Type: [facility] Filed: 08/31/2022 9:58 AM Note Text: ----- [...] IV DATA: Not applicable SIGNED BY: Esthela Carter, RT(R) August 31, 2022 9:57 AM [facility] ANES POSTPROC EVALon 023 ANES POSTPROC EVAL HNO ID: [id number] Author: Christiano Banuelos MD Service: Anesthesiology Author Type: Physician Type: Anesthesia Postprocedure Evaluation Filed: 08/31/2022 10:38 AM Note Text: POST ANESTHESIA EVALUATION NOTE : 1945 Procedure Summary Date: 08/31/22 Room / Location: OR [address] [place] [address] OR Anesthesia Start: 739 Anesthesia Stop: 948 [...] August 31, 2022 TIME: 10:38 AM CSN: [id number] [facility] ANES PRE-OPon 08-31-2022 ANES PRE-OP HNO ID: [id number] Author: Christiano Banuelos MD Service: Anesthesiology Author Type: Physician Type: Anesthesia Preprocedure Evaluation Filed: 08/31/2022 6:42 AM Note Text: ANESTHESIOLOGY DAY OF SURGERY NOTE : 1945 Procedure Information Date/Time: 08/31/22729 Procedure: REVERSE TOTAL SHOULDER ARTHROPLASTY (Left: Shoulder) Location: OR / OR Surgeons: Nayeli Perez MD Estimated body [...] and consent discussed: yes. Patient / Responsible Republican agrees to proceed: yes Patient / Surrogate [...] August 31, 2022 TIME: 6:36 AM CSN: [id number] [facility] CONFIRM BLOOD TYPEon 023 ABO O [facility] Comment on above: Order Comment: Speci men Type: BLOOD SPECIMEN Ordering Facility: [facility] Address: [address] [place] [address] [place] [address] Performed By: #### 3 4528-0, 78070-4 #### [facility] CLIA [id number] [address] [place], [place] [id number] [place] Rh Nom (Bld) Positive [facility] Comment on above: Order Comment: Speci men Type: BLOOD SPECIMEN Ordering Facility: [facility] Address: [place] [id number] Performed By: #### 3 4528-0, 10239-5 #### [facility] CLIA [id number] [address] [place], [place] [address] [facility] HISTORY PHYSICALon HISTORY PHYSICAL HNO ID: [id number] Author: Nayeli Perez MD Service: Orthopaedic Surgery Author Type: Physician Type: HANDP Filed: 08/31/2022 7:06 AM Note Text: HANDP reviewed without changes. [facility] NURSING PROGon 08-31-2022 NURSING PROG HNO ID: [id number] Author: Danica Quintana RN Service: Nursing Author Type: Registered Nurse Type: Nursing Progress Note Filed: 08/31/2022 10:00 AM Note Text: Talked with dr banuelos about something for pain. UNABLE TO ORDER ANY IVPAIN MEDS. PT IS ALLERGIC TO NARCOTICS. EXPAINED THIS PT. SHE SAID I WILL HAVE TO DEAL WITH IT [facility] OPERATIVE NOon 08-31-2022 OPERATIVE NO HNO ID: [id number] Author: Nayeli Perez MD Service: Orthopaedic Surgery Author Type: Physician Type: Operative Report Filed: 08/31/2022 9:33 AM Note Text: OPERATIVE/PROCEDURE REPORT LOG ID: [id number] SURGERY/PROCEDURE DATE: 08/31/2022 INCISION/PROCEDURE START TIME: 8:12 AM INCISION CLOSE/PROCEDURE END TIME: SURGEON(S)/PROCEDURALIST( S) AND LOCK TENDER(S): Surgeon(s) and Role: * Nayeli Perez MD - Primary Implementation Services Analyst: Tasha Hassan SA SURGERY/PROCEDURE(S): Left reverse total [...] any remaining cartilage and labrum circumferentially. The agricultural pilot hole for the glenoid reamers was [...] dictation. PRE-OP/PRE-PROCEDURE DIAGNOSI (more content not included)... [facility] XR SHOULDER SPECIFY 1V LTon [...] object. IMPRESSION: Expected postoperative changes as above. Supervisor Rod Placing: PSCB Transcribe Date/Time: Aug 31 2022 10:05A Dictated by : MARYANNE HOROWITZ MD This examination was interpreted and the report reviewed and electronically signed by: MARYANNE HOROWITZ MD on Aug 31 2022 10:06AM EST [id number] [facility] 08-24-2022 CNPN Telephone (PRANMY) ----- MADDISON RIVERA ([id number]) 1945 F Date Time Provider Department 08/24/22 [...] - Other: See Comments Comments: PH SYCOTIC [id number] REDUCTASE INHIBIT*05/06/2021 14 - Other: See Comments [...] Fully Assessed Reason for Visit: PreOp Call [3394] Prescriptions as of 08/24/2022 - celecoxib (CELEBREX) [...] Status:Closed by ESTHELA JIMENEZ on 08/24/22 [facility] Laboratory - Chemistry and C hemistry - challengeOrdered By: Jesus Peters on 08-24-2022 Free T4 [Mass/Vol] 1.17 ng/dL 0.76-1.46 [facility] No Panel InformationOrdered By: Jesus Peters on 08-24-2022 Free Triiodothyronine (T3) pg/dL 2.1 pg/mL 2.18-3.98 [facility] Thyroid Stimulating Hormone (TSH) 2.28 uIU/mL 0.358-3.74 [facility]NPNon [facility] MADDISON RIVERA ([id number]) 1945 F Date Time Provider Department 08/10/22 [...] - Other: See Comments Comments: PH SYCOTIC [id number] REDUCTASE INHIBIT*05/06/2021 14 - Other: See Comments [...] Status:Closed by ESTHELA JIMENEZ on 08/17/22 [facility] ECG COMPLETEon 08-08-2022 Atrial Rate 72 BPM [facility] Calculated P Braselton 10 degrees [facility] Calculated R [place] 35 degrees [facility] Calculated T [place] 52 degrees [facility] P-R Interval 140 ms [facility] QRS Duration 82 ms [facility] QT Interval 396 ms [facility] QTC Calculation (Bazett) 433 ms [facility] Ventricular Rate 72 BPM [facility] ACTIVATED PTTon 08-07-2022 aPTT Coag (PPP) [Time] 21.6 s Low 23.0 - 32.4 sec [facility] CBC panel Auto (Bld)on 08-07 Erythrocyte distribution width (RBC) [Ratio] 12.9 % 11.5 - 15.0 % [facility] Hematocrit (Bld) [Volume fraction] 48.5 % High 36.0 - 46.0 % [facility] Hemoglobin (Bld) [Mass/Vol] 15.8 g/dL High 11.5 - 15.5 g/dL [facility] MCH (RBC) [Entitic mass] 30.0 pg 26.0 - 34.0 pg [facility] MCHC (RBC) [Mass/Vol] 32.6 g/dL 30.5 - 36.0 g/dL [facility] MCV (RBC) [Entitic vol] 92.0 fL 80.0 - 100.0 fL [facility] Nucleated RBC (Bld) [#/Vol] <0.01 k/uL [facility] Platelet mean volume (Bld) [Entitic vol] 12.3 fL 9.0 - 12.7 fL [facility] Platelets (Bld) [#/Vol] 259 10*3/uL 150 - 400 k/uL [facility] RBC (Bld) [#/Vol] 5.27 10*6/uL High 3.90 - 5.2 0 m/uL [facility] WBC (Bld) [#/Vol] 10.79 10*3/uL 3.70 - 11.00 k/uL [facility] Erythrocyte distribution width (RBC) [Ratio] 12.9 % Normal 11.5-15.0 [facility] Comment on above: Order Comment: Speci men Type: BLOOD SPECIMEN Ordering Facility: [facility] Address: [address] [address] Performed By: #### 5 8410-2, 48596-8 #### [facility] CLIA [id number] [address] [place] [address] [place] Hematocrit (Bld) [Volume fraction] 48.5 % High 36.0-46.0 [facility] Comment on above: Order Comment: Speci men Type: BLOOD SPECIMEN Ordering Facility: [facility] Address: [address] [address] Performed By: #### 5 8410-2, 46064-2 #### [facility] CLIA [id number] [address] [place] [address] [place] Hemoglobin (Bld) [Mass/Vol] 15.8 g/dL High 11.5-15.5 [facility] Comment on above: Order Comment: Speci men Type: BLOOD SPECIMEN Ordering Facility: [facility] Address: [address] [address] Performed By: #### 5 8410-2, 05840-1 #### [facility] CLIA [id number] [address] [place] [address] [place] MCH (RBC) [Entitic mass] 30.0 pg Normal 26.0-34.0 [facility] Comment on above: Order Comment: Speci men Type: BLOOD SPECIMEN Ordering Facility: [facility] Address: [address] [address] Performed By: #### 5 8410-2, 50661-4 #### [facility] CLIA [id number] [address] [place] [address] [place] MCHC (RBC) [Mass/Vol] 32.6 g/dL Normal 30.5-36.[address] [facility] Comment on above: Order Comment: Speci men Type: BLOOD SPECIMEN Ordering Facility: [facility] Address: [address] [address] Performed By: #### 5 8410-2, 84355-8 #### [facility] CLIA [id number] [address] [place] [address] [place] MCV (RBC) [Entitic vol] 92.0 fL Normal 80.0-100.0 [facility] Comment on above: Order Comment: Speci men Type: BLOOD SPECIMEN Ordering Facility: [facility] Address: [address] [place] [address] Performed By: #### 5 8410-2, 33749-0 #### [facility] CLIA [id number] [address] [place] [address] [place] Nucleated RBC (Bld) [#/Vol] 10*3/uL Normal <0.01 [facility] Comment on above: Order Comment: Speci men Type: BLOOD SPECIMEN Ordering Facility: [facility] Address: [address] Performed By: #### 5 8410-2, 79963-5 #### [facility] CLIA [id number] [address] [place] [address] [place] Platelet mean volume (Bld) [Entitic vol] 12.3 fL Normal 9.0-12.7 [facility] Comment on above: Order Comment: Speci men Type: BLOOD SPECIMEN Ordering Facility: [facility] Address: [address] [address] Performed By: #### 5 8410-2, 19418-0 #### [facility] CLIA [id number] [address] [place] [address] Platelets (Bld) [#/Vol] 259 10*3/uL Normal 150-400 [facility] Comment on above: Order Comment: Speci men Type: BLOOD SPECIMEN Ordering Facility: [facility] Address: [address] [place] [address] Performed By: #### 5 8410-2, 21404-1 #### [facility] CLIA [id number] [address] [place] [address] RBC (Bld) [#/Vol] 5.27 10*6/uL High 3.90-5.20 [facility] Comment on above: Order Comment: Speci men Type: BLOOD SPECIMEN Ordering Facility: [facility] Address: [address] [place] [address] Performed By: #### 5 8410-2, 90337-9 #### [facility] CLIA [id number] [address] [place] [address] OF [facility] WBC (Bld) [#/Vol] 10.79 10*3/uL Normal 3.70-11.00 [facility] Comment on above: Order Comment: Speci men Type: BLOOD SPECIMEN Ordering Facility: [facility] Address: [address] [place] [address] Performed By: #### 5 8410-2, 13154-9 #### [facility] CLIA [id number] [address] [place], [place] [address] [facility] [place] Comprehensive metabolic 2000 panelon 08-07-2022 Albumin [Mass/Vol] 4.2 g/dL 3.2 - 5.0 g/dL [facility] ALP [Catalytic activity/Vol] 117 U/L 45 - 117 U/L [facility] ALT [Catalytic activity/Vol] 23 U/L 13 - 61 U/L [facility] Anion gap [Moles/Vol] 9 mmol/L 5 - 16 mmol/L [facility] AST [Catalytic activity/Vol] 28 U/L 8 - 34 U/L [facility] Bilirubin [Mass/Vol] 0.5 mg/dL 0.2 - 1 .0 mg/dL [facility] Calcium [Mass/Vol] 10.5 mg/dL 8.5 - 10. 5 mg/dL [facility] Chloride [Moles/Vol] 105 mmol/L 98 - 10 7 mmol/L [facility] CO2 [Moles/Vol] 26 mmol/L 21 - 32 mmol/L [facility] Creatinine [Mass/Vol] 1.01 mg/dL High 0.51 - 0.95 mg/dL [facility] Estimated Glomerular Filtration Rate 58 mL/min/1.73m Low >=60 mL/min/1.73 m [facility] Glucose [Mass/Vol] 73 mg/dL 70 - 100 mg/dL [facility] Potassium [Moles/Vol] 4.7 mmol/L 3.5 - 5.1 mmol/L [facility] Protein [Mass/Vol] 8.0 g/dL 6.0 - 8.5 g/dL [facility] Sodium [Moles/Vol] 140 mmol/L 136 - 145 mmol/L [facility] Urea nitrogen [Mass/Vol] 26 mg/dL 7 - 26 mg/dL [facility] Albumin [Mass/Vol] 4.2 g/dL Normal 3.2-5.0 [facility] Comment on above: Order Comment: Speci men Type: BLOOD SPECIMEN Ordering Facility: [facility] Address: [address] [address] Performed By: #### 2 4323-8 #### [facility] CLIA [id number] [address] [place] [address] [place] [facility] ALP [Catalytic activity/Vol] 117 U/L Normal 45-117 [facility] Comment on above: Order Comment: Speci men Type: BLOOD SPECIMEN Ordering Facility: [facility] Address: [address] [id number] Performed By: #### 2 4323-8 #### [facility] CLIA [id number] [address] [place] [address] [place] ALT [Catalytic activity/Vol] 23 U/L Normal 13-61 [facility] Comment on above: Order Comment: Speci men Type: BLOOD SPECIMEN Ordering Facility: [facility] Address: [address] [phone] Result Comment: Resu lts may be falsely depressed after the administration of Sulfasalazine and/or Sulfapyridine. Performed By: #### 2 4323-8 #### [facility] CLIA [id number] [address] [place] [address] [place] Anion gap [Moles/Vol] 9 mmol/L Normal 5-[address] [facility] Comment on above: Order Comment: Speci men Type: BLOOD SPECIMEN Ordering Facility: [facility] Address: [address] [address] Performed By: #### 2 4323-8 #### [facility] CLIA [id number] [address] [place] [address] [place] AST [Catalytic activity/Vol] 28 U/L Normal 8-34 [facility] Comment on above: Order Comment: Speci men Type: BLOOD SPECIMEN Ordering Facility: [facility] Address: [address] [place] [address] Result Comment: Resu lts may be falsely depressed after the administration of Sulfasalazine and/or Sulfapyridine. Performed By: #### 2 4323-8 #### [facility] CLIA [id number] [address] [place] [address] [place] Bilirubin [Mass/Vol] 0.5 mg/dL Normal 0.2-1.0 [facility] Comment on above: Order Comment: Speci men Type: BLOOD SPECIMEN Ordering Facility: [facility] Address: [address] [address] Performed By: #### 2 4323-8 #### [facility] CLIA [id number] [address] [place] [address] [place] Calcium [Mass/Vol] 10.5 mg/dL Normal 8.5-10.5 [facility] Comment on above: Order Comment: Speci men Type: BLOOD SPECIMEN Ordering Facility: [facility] Address: [address] [place] [address] Performed By: #### 2 4323-8 #### [facility] CLIA [id number] [address] [place] [address] [place] Chloride [Moles/Vol] 105 mmol/L Normal 98-107 [facility] Comment on above: Order Comment: Millyi pam Type: BLOOD SPECIMEN Ordering Facility: [facility] Address: [address] [place] [address] Performed By: #### 2 4323-8 #### [facility] CLIA [id number] [address] [place] [address] [place] CO2 [Moles/Vol] 26 mmol/L Normal 21-32 [facility] Comment on above: Order Comment: Speci men Type: BLOOD SPECIMEN Ordering Facility: [facility] Address: [address] [place] [address] Performed By: #### 2 4323-8 #### [facility] CLIA [id number] [address] [place] [address] [place] Creatinine [Mass/Vol] 1.01 mg/dL High 0.51-0.[address] [facility] Comment on above: Order Comment: Speci men Type: BLOOD SPECIMEN Ordering Facility: [facility] Address: [address] [place] [address] Result Comment: Aleyda ents receiving either N-Acetylcysteine (NAC) or Metamizole prior to venipuncture, may have falsely depressed results. Performed By: #### 2 4323-8 #### [facility] CLIA [id number] [address] [place] [address] [place] ESTIMATED GLOMERULAR FILTRATION RATE 58 mL/min/1.73m??? Low >=60 [facility] Comment on above: Order Comment: Speci men Type: BLOOD SPECIMEN Ordering Facility: [facility] Address: [address] [place] [address] Result Comment: Sally mated Glomerular Filtration Rate [...] GFR. Performed By: #### 2 4323-8 #### [facility] CLIA [id number] [address] [place], [place] [address] [place] Glucose [Mass/Vol] 73 mg/dL Normal 70-100 [facility] Comment on above: Order Comment: Leland orozco Type: BLOOD SPECIMEN Ordering Facility: [facility] Address: [address] [place], [place] [phone] Result Comment: The [place] Diabetes Association (ADA) provides guidance for cutoff [...] Standards of Medical Care in Diabetes 2016, [place] Diabetes Association. Diabetes Care. 2016.39(Suppl 1). Results may be falsely elevated after the administration of Sulfapyridine. Results may be falsely depressed after the administration of Sulfasalazine. Performed By: #### 2 4323-8 #### [facility] CLIA [id number] [address] [place] [address] [place] Potassium [Moles/Vol] 4.7 mmol/L Normal 3.5-5.[address] [facility] Comment on above: Order Comment: Leland orozco Type: BLOOD SPECIMEN Ordering Facility: [facility] Address: [address] [place] [address] Performed By: #### 2 4323-8 #### [facility] CLIA [id number] [address] [place] [address] [place] Protein [Mass/Vol] 8.0 g/dL Normal 6.0-8.5 [facility] Comment on above: Order Comment: Leland orozco Type: BLOOD SPECIMEN Ordering Facility: [facility] Address: [address] [place] [address], [place] [address] Performed By: #### 2 4323-8 #### [facility] CLIA [id number] [address] [place], [place] [address] [place] Sodium [Moles/Vol] 140 mmol/L Normal 136-145 [facility] Comment on above: Order Comment: Speci men Type: BLOOD SPECIMEN Ordering Facility: [facility] Address: [address] [phone] Performed By: #### 2 4323-8 #### [facility] CLIA [id number] [address] [place], [place] [address] [place] Urea nitrogen [Mass/Vol] 26 mg/dL Normal 7-26 [facility] Comment on above: Order Comment: Speci men Type: BLOOD SPECIMEN Ordering Facility: [facility] Address: [address] [phone] Performed By: #### 2 4323-8 #### [facility] CLIA [id number] [address] [place], [place] [address] [place] [id number] 08-07-2022 ECG01 Ventricular Rate : 7 2 BPM Atrial Rate : 72 BPM P-R Interval : 140 ms QRS Duration : 82 ms Q-T Interval : 396 ms QTC Calculation(Bazett) : 433 ms Calculated P Brasel[place] : 10 degrees Calculated R [place] : 35 degrees Calculated T [place] : 52 degrees Normal sinus rhythm Normal ECG No previous ECGs available Confirmed by GIOVANNA MORALES MD ([id number]) on 08/08/2022 7:33:06 AM NAME : MADDISON RIVERA PID : [id number] : 1945 Gender : Female Race : ORD : [id number] Procedure Date : Aug 07 2022 12:14:19 Edit Date : Aug 08 2022 07:33:08 Diagnosis: Normal sinus rhythm Normal ECG No previous ECGs available Confirmed by GIOVANNA MORALES MD ([id number]) on 08/08/2022 7:33:06 AM Test Reason : Location : 2 : [facility] Overread By : GIOVANNA MORALES MD Edited By : GIOVANNA MORALES MD Referred By : CHRIS Acquired by : [facility], [facility] HbA1c (Bld)on 08-07-2022 Average glucose Estimated from glycated hemoglobin (Bld) [Mass/Vol] 117 mg/dL [facility] HbA1c (Bld) [Mass fraction] 5.7 % 4.3 - 6.0 % [facility] Average glucose Estimated from glycated hemoglobin (Bld) [Mass/Vol] 117 mg/dL Normal [facility] Comment on above: Order Comment: Leland orozco Type: BLOOD SPECIMEN Ordering Facility: [facility] Address: [address] [place], [place] [phone] Result Comment: eAG: (Estimated average glucose) is a calculated value from HgbA1c and is sales representative health insurance of the average blood glucose level in the last 2-3 month period. Performed By: #### 5 8410-2, 88908-3 #### [facility] CLIA [id number] [address] [place] [address] OF [facility] HbA1c (Bld) [Mass fraction] 5.7 % Normal 4.3-6.0 [facility] Comment on above: Order Comment: Leland orozco Type: BLOOD SPECIMEN Ordering Facility: [facility] Address: [address] [place], [place] [phone] Result Comment: [place] Diabetes Association guidelines indicate that patients with HgbA1c in the range 5.7-6.4% are at increased risk for development of diabetes, and intervention by lifestyle modification may be beneficial. HgbA1c greater or equal to 6.5% is considered diagnostic of diabetes. Performed By: #### 5 8410-2, 68395-2 #### [facility] CLIA [id number] [address] [place] [address] OF [facility] Laboratory - Microbiology an d Antimicrobial susceptibilityon 08-07-2022 S. aureus and MRSA panel JAYASHREE+probe (Nose) Negative Negative [facility] No Panel Informationon 08-07 [facility] PT panel Coag (PPP)on 2022 INR Coag (PPP) [Relative time] 1.0 {INR} Normal 0.9-1.3 [facility] Comment on above: Order Comment: Leland orozco Type: BLOOD SPECIMEN Ordering Facility: [facility] Address: [address] [place], [place] [phone] Result Comment: Magalys min K Antagonist (VKA) Therapeutic Range: INR 2 to 3 (Target INR of 2.5) Note: For patients treated with VKA drugs, such as warfarin, the [place] College of Chest Physicians 2012 Guideline recommends [...] to 3.5 (target INR of 3). Magnus ECHEVARRIA, et al. Chest 2012, 141:7S-47S Kavin SAMPSON, et al. [facility] 2017, 70: 252-289 Performed By: #### 3 4528-0, 94118-9 #### [facility] CLIA [id number] [address] [place] [address] [place] PT Coag (PPP) [Time] 10.3 s Normal 9.7-13.0 [facility] Comment on above: Order Comment: Speci men Type: BLOOD SPECIMEN Ordering Facility: [facility] Address: [address] [place] [phone] Performed By: #### 3 4528-0, 19922-9 #### [facility] CLIA [id number] [address] [place] [address] [place] INR Coag (PPP) [Relative time] 1.0 {INR} 0.9 - 1.3 [facility] PT Coag (PPP) [Time] 10.3 s 9.7 - 1 3.0 sec [facility] STAPH AUREUS PCRon 3 S. aureus and MRSA panel JAYASHREE+probe (Nose) Normal Negative [facility] Comment on above: Order Comment: Speci men Type: SWAB OF INTERNAL NOSE Ordering Facility: [facility] Address: [address] [place], [place] [phone] Result Comment: Nega tive for Staphylococcus aureus by PCR. Negative for MRSA by PCR Performed By: #### S APCR #### [facility] CLIA [id number] [address] [place] [address] TYPE AND SCREEN,30 DAYon ABO O Normal [facility] Comment on above: Order Comment: Speci men Type: BLOOD SPECIMEN Ordering Facility: [facility] Address: [address] [place] [address] Performed By: #### T SCR30 #### [facility] CLIA [id number] [address] [place] [address] HIstorical Ab Scr Status Negative Normal [facility] Comment on above: Order Comment: Speci men Type: BLOOD SPECIMEN Ordering Facility: [facility] Address: [address] [place] [address] Performed By: #### T SCR30 #### [facility] CLIA [id number] [address] [place] [address] Rh Nom (Bld) Positive Normal [facility] Comment on above: Order Comment: Speci men Type: BLOOD SPECIMEN Ordering Facility: [facility] Address: [address] [place] [address] Performed By: #### T SCR30 #### [facility] CLIA [id number] [address] [place] [address] XR CHEST 2V FRONTAL/LATon XR CHEST 2V [...] the spine. IMPRESSION: No acute radiographic abnormality. Supervisor Rod Placing: BILL Transcribe Date/Time: Aug 07 2022 2:49P Dictated by : IRA HILL MD This examination was interpreted and the report reviewed and electronically signed by: IRA HILL MD on Aug 07 2022 2:50PM EST [id number] Normal [facility] aPTT PPPon 08-07-2022 aPTT Coag (PPP) [Time] 21.6 s Low 23.0-32.4 [facility] Comment on above: Order Comment: Speci men Type: BLOOD SPECIMEN Ordering Facility: [facility] Address: [address] [place] [phone] Result Comment: Ther apeutic Heparin Reference Range: [...] the PTT. Performed By: #### 3 4528-0, 24743-8 #### [facility] CLIA [id number] [facility] [place] [address] [place] Basophil percentageOrdered B y: Dr. Peters on 05-12-2022 Cholesterol [Mass/Vol] 255 mg/dL <200 [facility] Comment on above: <200 mg/dL Desirable 200-240 mg/dL Borderline >240 mg/dL High Risk Triglyceride [Mass/Vol] 142 mg/dL <199 [facility] Comment on above: The drugs N-Acetylcy steine and Metamizole may falsely depress this assay.Serum Triglycerides Reference Interval Normal <150 mg/dL Borderline high 150 - 199 mg/dL High 200 - 499 mg/dL Very High > or = 500 mg/dL Serum or plasma cholesterol in HDL measurement (mass/volume)Ordered By: Dr. Peters on 05-12-2022 Cholesterol in HDL [Mass/Vol] 56 mg/dL >40 [facility] Comment on above: The drugs N-Acetylcy steine and Metamizole may falsely depress this assay. Reference Range HDL <40 mg/dL Low HDL Cholesterol HDL >or= 60 mg/dL High HDL Cholesterol Serum or plasma cholesterol in VLDL measurement (mass/volume)Ordered By: Dr. Peters on 05-12-2022 Cholesterol in VLDL [Mass/Vol] 28 mg/dL 5-40 [facility] Serum or plasma low density lipoprotein (LDL) cholesterol measurement (mass/volume)Ordered By: Dr. Peters on 05-12-2022 Cholesterol in LDL [Mass/Vol] 171 mg/dL 0-130 [facility] Basophil percentageOrdered B y: Dr. Peters on 03-01-2022 Chloride [Moles/Vol] 104 mmol/L 98-107 [facility] Cholesterol [Mass/Vol] 268 mg/dL <200 [facility] Comment on above: <200 mg/dL Desirable 200-240 mg/dL Borderline >240 mg/dL High Risk Glucose [Mass/Vol] 86 mg/dL 74-106 [facility] Potassium [Moles/Vol] 4.0 mmol/L 3.5-5.1 [facility] Sodium [Moles/Vol] 138 mmol/L 136-145 [facility] Triglyceride [Mass/Vol] 161 mg/dL <199 [facility] Comment on above: The drugs N-Acetylcy steine and Metamizole may falsely depress this assay.Serum Triglycerides Reference Interval Normal <150 mg/dL Borderline high 150 - 199 mg/dL High 200 - 499 mg/dL Very High > or = 500 mg/dL Laboratory - Chemistry and C hemistry - challengeOrdered By: Dr. Peters on 03-01-2022 CO2 [Moles/Vol] 27.0 mmol/L 21.0-32.0 [facility] Urea nitrogen/Creatinine [Mass ratio] 23.8 mg/mg 10-20 [facility] No Panel InformationOrdered By: Dr. Peters on 03-01-2022 Estimated GFR (MDRD) Amer 72 mL/min >60 [facility] Comment on above: GFR Calc Estimated GFR (MDRD) Non-Af Amer 60 mL/min >60 [facility] Comment on above: Non- GFR Calc Thyroid Stimulating Hormone (TSH) 2.50 uIU/mL 0.358-3.74 [facility] Serum or plasma calcium iris urement (mass/volume)Ordered By: Dr. Peters on 03-01-2022 Calcium [Mass/Vol] 9.6 mg/dL 8.5-10.1 [facility] Serum or plasma cholesterol in HDL measurement (mass/volume)Ordered By: Dr. Peters on 03-01-2022 Cholesterol in HDL [Mass/Vol] 55 mg/dL >40 [facility] Comment on above: The drugs N-Acetylcy steine and Metamizole may falsely depress this assay. Reference Range HDL <40 mg/dL Low HDL Cholesterol HDL >or= 60 mg/dL High HDL Cholesterol Serum or plasma cholesterol in VLDL measurement (mass/volume)Ordered By: Dr. Peters on 03-01-2022 Cholesterol in VLDL [Mass/Vol] 32 mg/dL 5-40 [facility] Serum or plasma creatinine m easurement (mass/volume)Ordered By: Dr. Peters on 03-01-2022 Creatinine [Mass/Vol] 0.97 mg/dL 0.55-1.02 [facility] Comment on above: The validity of the calculated GFR & GFRAA in patients over 70 years has not been determined. Clinical correlation is essential. Serum or plasma low density lipoprotein (LDL) cholesterol measurement (mass/volume)Ordered By: Dr. Peters on 03-01-2022 Cholesterol in LDL [Mass/Vol] 181 mg/dL 0-130 [facility] Serum or plasma urea nitroge n measurement (mass/volume)Ordered By: Dr. Peters on 03-01-2022 Urea nitrogen [Mass/Vol] 23 mg/dL 7-18 [facility] Thin prep Papanicolaou smear with manual screeningOrdered By: Dr. Peters on 03-01-2022 Thin prep Papanicolaou smear with manual screening 7 5-15 [facility] CNPNon 07-01-2021 CNPN Telephone (SafetyPay) ----- MADDISON RIVERA ([id number]) 1945 F Date Time Provider Department 07/01/21 [...] Doctor Referral line, . Dalton Villa LPN Allergies As of Date: 07/01/2021 [...] - Hives PREDNISONE 07/03/2006 16 - Unknown VXXLQKN-[id number]-[id number] REDUCTASE INHIBIT*05/06/2021 14 - Other: See Comments [...] 1 tablet by mouth once daily. - [place]-3 Fatty Acids (FISH OIL) 500 mg Cap [...] Encounter Status:Closed by DALTON VILLA on 07/01/21 [facility] 05-13-2021 CNPN Telephone (RHBATH) ----- MADDISON RIVERA ([id number]) 1945 F Date Time Provider Department 05/13/21 IRASEMA VELA During your visit today, we recorded the following information about you: Dalton Villa LPN 05/13/2021 4:06 PM Signed Patient called to make sure her BMD results were faxed to the office. Patient would like to know if she can have the results over the phone. XIN Mae MD 05/16/2021 11:55 AM Signed Osteopenia. Advise Ca-vit D. Can discuss in details during a visit. Dalton Villa LPN 05/17/2021 10:53 AM Signed Patient notified and verbalized understanding. Confirmed appt below: 05/31/2021 12:20 PM I[address]ema Vela [address] [facility] Dalton Villa LPN Allergies As of [...] - Hives PREDNISONE 07/03/2006 16 - Unknown HGUIZNP-UMT-CRV REDUCTASE INHIBIT*05/06/2021 14 - Other: See Comments [...] Fully Assessed Reason for Visit: Patient Question [1477] Prescriptions as of 05/17/2021 - lisinopril (ZESTRIL, [...] 1 tablet by mouth once daily. - [place]-3 Fatty Acids (FISH OIL) 500 mg Cap [...] Status:Closed by DALTON VILLA on 05/13/21 Normal [facility] MASOOD BY IFA SCREENon 05-07-19 Nuclear Ab IF (S) [Titer] Negative Normal Negative [facility] Comment on above: Order Comment: Speci men Type: BLOOD SPECIMENOrdering Facility: [facility] Address: [address] [place] [address] Result Comment: Anti -nuclear antibody test is used as an aid in diagnosis of systemic autoimmune diseases. Where positive and clinically warranted, follow-up using disease-specific testing is recommended. Low positive titers are not uncommon with advanced age, certain chronic infections, and malignancies among others. Test methodology: Indirect fluorescence immunoassay (IFA) using HEp-2 cells. Performed By: #### A NAIFS ####[facility] [id number] [address] BLOOD TB SCREEN, INCUBATEDon 05-06-2021 M. tuberculosis tuberculin stim IFN-g Ql (Bld) Negative Normal [facility] Comment on above: Order Comment: Speci men Type: BLOOD SPECIMENOrdering Facility: [facility] Address: [address] [place] [address] Performed By: #### I NTPGP ####[facility] [id number] [address] [place] MITOGEN MINUS NIL >10.00 Normal >=0.50 [facility] Comment on above: Order Comment: Speci men Type: BLOOD SPECIMENOrdering Facility: [facility] Address: [address] [place] [address] Performed By: #### I NTPGP ####[facility] [id number] [address] TB GAMMA INTERPRETATION Infection with M. tuberculosis complex is unlikely. If latent tuberculosis infection is highly suspected, a negative result does not rule out the infection. Specimens from immunocompromised patients and those <5 years of age may show false negative results. In case of a contact investigation, please repeat 8-12 weeks after a known exposure. Normal [facility] Comment on above: Order Comment: Speci men Type: BLOOD SPECIMENOrdering Facility: [facility] Address: [address] [place] [address] Performed By: #### I NTPGP ####[facility] [id number] [address] TB NIL 0.00 IU/mL Normal <=8.00 [facility] Comment on above: Order Comment: Speci men Type: BLOOD SPECIMENOrdering Facility: [facility] Address: [address] [place] [address] Performed By: #### I NTPGP ####[facility] [id number] [address] TB1 AG MINUS NIL 0.00 IU/mL Normal <0.35 [facility] Comment on above: Order Comment: Speci men Type: BLOOD SPECIMENOrdering Facility: [facility] Address: [address] [place] [address] Performed By: #### I NTPGP ####[facility]CL[facility] [id number] [address] TB2 AG MINUS NIL 0.00 IU/mL Normal <0.35 [facility] Comment on above: Order Comment: Speci men Type: BLOOD SPECIMENOrdering Facility: [facility] Address: [address] [place] [address] Performed By: #### I NTPGP ####[facility] [id number] [address] CBC W Auto Differential pane l (Bld)on 05-06-2021 Basophils (Bld) [#/Vol] 0.07 10*3/uL Normal <0.11 [facility] Comment on above: Order Comment: Speci men Type: BLOOD SPECIMEN [facility] Address: [address] [place] [address] Performed By: #### 5 7021-8 #### [facility] CLIA [id number] [address] Basophils/100 WBC (Bld) 0.7 % Normal [facility] Comment on above: Order Comment: Speci men Type: BLOOD SPECIMEN [facility] Address: [address] [place] [address] Performed By: #### 5 7021-8 #### [facility] CLIA [id number] [address] Differential cell count method Nom (Bld) Auto Normal [facility] Comment on above: Order Comment: Speci men Type: BLOOD SPECIMEN [facility] Address: [address] [place] [address] Performed By: #### 5 7021-8 #### [facility] CLIA [id number] [address] Eosinophils (Bld) [#/Vol] 0.08 10*3/uL Normal <0.46 [facility] Comment on above: Order Comment: Speci men Type: BLOOD SPECIMEN [facility] Address: [address] [place] [address] Performed By: #### 5 7021-8 #### [facility] CLIA [id number] [address] Eosinophils/100 WBC (Bld) 0.8 % Normal [facility] Comment on above: Order Comment: Speci men Type: BLOOD SPECIMEN [facility] Address: [address] [place] [address] Performed By: #### 5 7021-8 #### [facility] CLIA [id number] [address] Erythrocyte distribution width (RBC) [Ratio] 13.7 % Normal 11.5-15.0 [facility] Comment on above: Order Comment: Speci men Type: BLOOD SPECIMEN [facility] Address: [address] [place] [address] Performed By: #### 5 7021-8 #### [facility] CLIA [id number] [address] Hematocrit (Bld) [Volume fraction] 45.8 % Normal 36.0-46.0 [facility] Comment on above: Order Comment: Speci men Type: BLOOD SPECIMEN [facility] Address: [address] [place] [address] Performed By: #### 5 7021-8 #### [facility] CLIA [id number] [address] OF [facility] Hemoglobin (Bld) [Mass/Vol] 14.2 g/dL Normal 11.5-15.5 [facility] Comment on above: Order Comment: Speci men Type: BLOOD SPECIMEN [facility] Address: [address] [place] [address] Performed By: #### 5 7021-8 #### [facility] CLIA [id number] [address] IMMATURE GRAN % 0.7 % Normal [facility] Comment on above: Order Comment: Speci men Type: BLOOD SPECIMEN [facility] Address: [address] [place] [address] Performed By: #### 5 7021-8 #### [facility] CLIA [id number] [address] IMMATURE GRAN ABS 0.07 k/uL Normal <0.10 [facility] Comment on above: Order Comment: Speci men Type: BLOOD SPECIMEN [facility] Address: [address] [place] [address] Performed By: #### 5 7021-8 #### [facility] CLIA [id number] [address] Lymphocytes (Bld) [#/Vol] 0.94 10*3/uL Low 1.00-4.00 [facility] Comment on above: Order Comment: Speci men Type: BLOOD SPECIMEN [facility] Address: [address] [place] [address] Performed By: #### 5 7021-8 #### [facility] CLIA [id number] [address] Lymphocytes/100 WBC (Bld) 9.5 % Normal [facility] Comment on above: Order Comment: Speci men Type: BLOOD SPECIMEN [facility] Address: [address] [place] [address] Performed By: #### 5 7021-8 #### [facility] CLIA [id number] [address] [place] MCH (RBC) [Entitic mass] 29.8 pg Normal 26.0-34.0 [facility] Comment on above: Order Comment: Speci men Type: BLOOD SPECIMEN [facility] Address: [address] [place] [address] Performed By: #### 5 7021-8 #### [facility] CLIA [id number] [address] MCHC (RBC) [Mass/Vol] 31.0 g/dL Normal 30.5-36.0 [facility] Comment on above: Order Comment: Speci men Type: BLOOD SPECIMEN [facility] Address: [address] [place] [address] Performed By: #### 5 7021-8 #### [facility] CLIA [id number] [address] MCV (RBC) [Entitic vol] 96.2 fL Normal 80.0-100.0 [facility] Comment on above: Order Comment: Speci men Type: BLOOD SPECIMEN [facility] Address: [address] [place] [address] Performed By: #### 5 7021-8 #### [facility] CLIA [id number] [address] Monocytes (Bld) [#/Vol] 0.22 10*3/uL Normal <0.87 [facility] Comment on above: Order Comment: Speci men Type: BLOOD SPECIMEN [facility] Address: [address] [place] [address] Performed By: #### 5 7021-8 #### [facility] CLIA [id number] [address] Monocytes/100 WBC (Bld) 2.2 % Normal [facility] Comment on above: Order Comment: Speci men Type: BLOOD SPECIMEN [facility] Address: [address] [place] [address] Performed By: #### 5 7021-8 #### [facility] CLIA [id number] [address] [place] Neutrophils (Bld) [#/Vol] 8.49 10*3/uL High 1.45-7.50 [facility] Comment on above: Order Comment: Speci men Type: BLOOD SPECIMEN [facility] Address: [address] [place] [place] [address] Performed By: #### 5 7021-8 #### [facility] CLIA [id number] [address] [place] Neutrophils/100 WBC (Bld) 86.1 % Normal [facility] Comment on above: Order Comment: Speci men Type: BLOOD SPECIMEN [facility] Address: [facility] [place] [address] Performed By: #### 5 7021-8 #### [facility] CLIA [id number] [address] Nucleated RBC (Bld) [#/Vol] 10*3/uL Normal <0.01 [facility] Comment on above: Order Comment: Speci men Type: BLOOD SPECIMEN [facility] Address: [address] [address] Performed By: #### 5 7021-8 #### [facility] CLIA [id number] [address] Nucleated RBC/100 WBC (Bld) [Ratio] 0.0 /100 WBC Normal [facility] Comment on above: Order Comment: Speci men Type: BLOOD SPECIMEN [facility] Address: [address] [address] Performed By: #### 5 7021-8 #### [facility] CLIA [id number] [address] Platelet mean volume (Bld) [Entitic vol] 12.5 fL Normal 9.0-12.7 [facility] Comment on above: Order Comment: Speci men Type: BLOOD SPECIMEN [facility] Address: [address] [address] Performed By: #### 5 7021-8 #### [facility] CLIA [id number] [address] Platelets (Bld) [#/Vol] 290 10*3/uL Normal 150-400 [facility] Comment on above: Order Comment: Speci men Type: BLOOD SPECIMEN [facility] Address: [address] [place] [address] Performed By: #### 5 7021-8 #### [facility] CLIA [id number] [address] RBC (Bld) [#/Vol] 4.76 10*6/uL Normal 3.90-5.20 [facility] Comment on above: Order Comment: Speci men Type: BLOOD SPECIMEN [facility] Address: [address] [place] [address] Performed By: #### 5 7021-8 #### [facility] CLIA [id number] [address] WBC (Bld) [#/Vol] 9.87 10*3/uL Normal 3.70-11.00 [facility] Comment on above: Order Comment: Speci men Type: BLOOD SPECIMEN [facility] Address: [address] [place] [address] Performed By: #### 5 7021-8 #### [facility] CLIA [id number] [address] [place] [address] CNOVon 05-06-2021 CNOV Office Visit (RHBATH ) ----- MADDISON RIVERA ([id number]) 1945 F Date Time Provider Department 05/06/21 [...] x 30 years. She was diagnosed with 2000 Dr. Benavidez with lupus (rash on face) [...] not taking: Reported on 07/29/2018 ) - [place]-3 Fatty Acids (FISH OIL) 500 mg Cap Take by mouth once daily. Takes 600 mg pill daily (Patient not taking: Reported on more content not included)... Normal [facility] Comprehensive metabolic 2000 panelon 05-06-2021 Albumin [Mass/Vol] 4.4 g/dL Normal 3.9-4.9 [facility] Comment on above: Order Comment: Speci men Type: BLOOD SPECIMENOrdering Facility: [facility] Address: [address] [address] Performed By: #### 2 4323-8, 3083- ####[facility]ORYCLIA [id number] [address] STATES OF [facility] ALP [Catalytic activity/Vol] 109 U/L Normal 34-123 [facility] Comment on above: Order Comment: Speci men Type: BLOOD SPECIMENOrdering Facility: [facility] Address: [address] [address] Performed By: #### 2 4323-8, 3083- ####[facility]ORYCLIA [id number] [address] STATES OF [facility] ALT With P-5'-P [Catalytic activity/Vol] 16 U/L Normal 7-38 [facility] Comment on above: Order Comment: Speci men Type: BLOOD SPECIMENOrdering Facility: [facility] Address: [address] [address] Performed By: #### 2 4323-8, 3083- ####[facility]ORYCLIA [id number] [address] Anion gap [Moles/Vol] 14 mmol/L Normal 9-18 [facility] Comment on above: Order Comment: Speci men Type: BLOOD SPECIMENOrdering Facility: [facility] Address: [address] Performed By: #### 2 4323-8, 308-1 ####[facility]ATORYCLIA [id number] [address] STATES OF [facility] AST With P-5'-P [Catalytic activity/Vol] 25 U/L Normal 13-35 [facility] Comment on above: Order Comment: Speci men Type: BLOOD SPECIMENOrdering Facility: [facility] Address: [address] Performed By: #### 2 4323-8, 3083- ####[facility]ORYCLIA [id number] [address] STATES OF [facility] Bilirubin [Mass/Vol] 0.4 mg/dL Normal 0.2-1.3 [facility] Comment on above: Order Comment: Speci men Type: BLOOD SPECIMENOrdering Facility: [facility] Address: [address] [address] Performed By: #### 2 4323-8, 3083- ####[facility]ORYCLIA [id number] [address] STATES OF [facility] Calcium [Mass/Vol] 9.7 mg/dL Normal 8.5-10.2 [facility] Comment on above: Order Comment: Speci men Type: BLOOD SPECIMENOrdering Facility: [facility] Address: [address] [address] Performed By: #### 2 4323-8, 3083- ####[facility]ATORYCLIA [id number] [place] [address] [place] Chloride [Moles/Vol] 101 mmol/L Normal 97-105 [facility] Comment on above: Order Comment: Speci men Type: BLOOD SPECIMENOrdering Facility: [facility] Address: [address] [address] Performed By: #### 2 4323-8, 3084-1 ####[facility]ORYCLIA [id number] [address] [facility] CO2 [Moles/Vol] 23 mmol/L Normal 22-30 [facility] Comment on above: Order Comment: Speci men Type: BLOOD SPECIMENOrdering Facility: [facility] Address: [address] [address] Performed By: #### 2 4323-8, 308-1 ####[facility]ORYCLIA [id number] [address] [place] Creatinine [Mass/Vol] 0.89 mg/dL Normal 0.58-0.96 [facility] Comment on above: Order Comment: Speci men Type: BLOOD SPECIMENOrdering Facility: [facility] Address: [address] [place] [address] Performed By: #### 2 4323-8, 3083-02 ####[facility]ORYCLIA [id number] [address] ESTIMATED GLOMERULAR FILTRATION RATE 68 mL/min/1.73m??? Normal >=60 [facility] Comment on above: Order Comment: Speci men Type: BLOOD SPECIMENOrdering Facility: [facility] Address: [address] [place] [address] Result Comment: Sally mated Glomerular Filtration Rate [...] actual GFR. Performed By: #### 2 4323-8, 3083- ####[facility]ORYCLIA [id number] [address] [place] OF [facility] Glucose [Mass/Vol] 115 mg/dL High 74-99 [facility] Comment on above: Order Comment: Speci men Type: BLOOD SPECIMENOrdering Facility: [facility] Address: [address] [place] [address] Result Comment: The [place] Diabetes Association (ADA) provides guidance for cutoff [...] Standards of Medical Care in Diabetes 2016, [place] Diabetes Association. Diabetes Care. 2016.39(Suppl 1). Performed By: #### 2 4323-8, 3083- ####[facility]ATORYCLIA [id number] [place] [address] [place] Potassium [Moles/Vol] 4.0 mmol/L Normal 3.7-5.1 [facility] Comment on above: Order Comment: Speci men Type: BLOOD SPECIMENOrdering Facility: [facility] Address: [address] [place] [address] Performed By: #### 2 4328, 3083-02 ####[facility]ATORYCLIA [id number] [place] [address] [place] Protein [Mass/Vol] 7.6 g/dL Normal 6.3-8.0 [facility] Comment on above: Order Comment: Speci men Type: BLOOD SPECIMENOrdering Facility: [facility] Address: [address] [address] Performed By: #### 2 43204-26, 3083-02 ####[facility]ATORYCLIA [id number] [place] [address] [place] Sodium [Moles/Vol] 138 mmol/L Normal 136-144 [facility] Comment on above: Order Comment: Speci men Type: BLOOD SPECIMENOrdering Facility: [facility] Address: [address] [address] Performed By: #### 2 4328, 3083- ####[facility]ORYCLIA [id number] [address] [place] Urea nitrogen [Mass/Vol] 17 mg/dL Normal 7-21 [facility] Comment on above: Order Comment: Speci men Type: BLOOD SPECIMENOrdering Facility: [facility] Address: [address] [place] [address] Performed By: #### 2 4323-8, 3084-1 ####[facility]ATORYCLIA [id number] [address] [place] Cyclic citrullinated peptide IgG Qnon 05-06-2021 [facility] ANTIBODY IGG QUALITATIVE Negative Normal Negative [facility] Comment on above: Order Comment: Speci men Type: BLOOD SPECIMENOrdering Facility: [facility] Address: [address] [place] [address] Performed By: #### 3 3935-8, DNAAB ####[facility] LABCLIA [id number] [address] [place] DNA ANTIBODY DS BLDon 2021 DNA ANTIBODY <12 Normal <30 [facility] Comment on above: Order Comment: Speci men Type: BLOOD SPECIMENOrdering Facility: [facility] Address: [address] [place] [address] Result Comment: Nega tive for ds DNA Anitbodies. <30 IU/mL Negative 30-74 IU/mL Equivocal >74 IU/mL Positive Performed By: #### 3 3935-8, DNAAB ####[facility] LABCLIA [id number] [address] [place] FELICE SM IgG Ser-aCncon 2021 Parr extractable nuclear IgG Qn (S) <0.2 Normal <1.0 [facility] Comment on above: Order Comment: Speci men Type: BLOOD SPECIMENOrdering Facility: [facility] Address: [address] [place] [address] Performed By: #### 1 8323-6 ####[facility] LABCLIA [id number] [address] [place] HBV core Ab Ser Qlon 022 HBV core Ab Ql (S) Negative Normal Negative [facility] Comment on above: Order Comment: Speci men Type: BLOOD SPECIMENOrdering Facility: [facility] Address: [address] [place] [address] Result Comment: No e vidence of current or past infection with Hepatitis B virus. Should recent infection be suspected, repeat testing may be considered 3-4 weeks after this draw. Performed By: #### 1 6933-4 ####[facility] LABCLIA [id number] [address] HBV surface Ab IA Ql (S)on 0 05-06-2021 HBV surface Ag Ql (S) Negative Normal Negative [facility] Comment on above: Order Comment: Speci men Type: BLOOD SPECIMENOrdering Facility: [facility] Address: [address] [place] [address] Performed By: #### 1 0900-9 ####[facility] LABORATORYCLIA [id number] [address] OF [facility] HBV surface Ab Ser-aCncon HBV surface Ab Qn (S) 3.47 mIU/mL Normal <10.00 [facility] Comment on above: Order Comment: Speci men Type: BLOOD SPECIMENOrdering Facility: [facility] Address: [address] [place] [address] Result Comment: Aleyda ent is considered not to have protective immunity to HBV infection. Performed By: #### 1 6935-9 ####[facility] LABORATORYCLIA [id number] [address] OF [facility] HCV Ab Ser Qlon 05-06-2021 HCV Ab Ql (S) Negative Normal Negative [facility] Comment on above: Order Comment: Speci [facility] Type: BLOOD SPECIMENOrdering Facility: [facility] Address: [address] [place] [address] Performed By: #### 1 6128-1 ####[facility] [id number] [place] [address] [place] RHEUMATOID FACTOR BLon 05-06 Rheumatoid factor Qn [IU]/mL Normal <16 [facility] Comment on above: Order Comment: Speci men Type: BLOOD SPECIMENOrdering Facility: [facility] Address: [address] [place] [address] Performed By: #### R F ####[facility] LABIA [id number] [address] [place] Parr extractable nuclear Ig G Qn (S)on 05-06-2021 SM ANTIBODY QUAL Negative Normal Negative [facility] Comment on above: Order Comment: Speci men Type: BLOOD SPECIMENOrdering Facility: [facility] Address: [address] [place] [address] Result Comment: Anti -Sm (Parr) antibody is used as an aid in diagnosis of systemic lupus erythematosus and its presence is associated with renal disease. A negative result cannot rule out systemic lupus erythematosus. Clinical correlation is required. Test Methodology: Multiplex flow immunoassay. Performed By: #### 1 8323-6 ####[facility] LABCLIA [id number] [place] [address] [place] Urate SerPl-mCncon Urate [Mass/Vol] 6.6 mg/dL Normal 2.5-6.6 [facility] Comment on above: Order Comment: Speci men Type: BLOOD SPECIMENOrdering Facility: [facility] Address: [address] [place] [address] Performed By: #### 2 4323-8, 3084-1 ####[facility] LABORATORYCLIA [id number] [address] [place] VITAMIN D 25 HYDROXYon 05-06 25-hydroxyvitamin D3 [Mass/Vol] 30.5 ng/mL Normal 30.0-100.0 [facility] Comment on above: Order Comment: Speci men Type: BLOOD SPECIMENOrdering Facility: [facility] Address: [address] [place] [address] Result Comment: Clas sification of 25 [place] Vitamin D status: Deficiency: <= 20.0 ng/ml. Insufficientcy: 21.0-29.0 ng/ml. Sufficiency: >= 30.0 ng/ml. Performed By: #### V ITD ####[facility] LABORATORYCLIA [id number] [place] [address] [facility] XR CERVICAL 2V AP/LATon 03 XR CERVICAL 2V AP/LAT * * *Final [...] DISEASE FROM C3-C7. DIFFUSE FACET DEGENERATIVE CHANGES. Supervisor Rod Placing: BILL Transcribe Date/Time: May 06 2021 11:20A Dictated by : SEE MACKEY MD This examination was interpreted and the report reviewed and electronically signed by: SEE MACKEY MD on May 06 2021 11:22AM EST [id number] Normal [facility] XR FOOT 3V AP/LAT/OBL LTon 0 [...] and/or partial tearing Bilateral hands: Degenerative changes Supervisor Rod Placing: BILL Transcribe Date/Time: May 09 2021 1:15P Dictated by : JUDAH CARDENAS MD This examination was interpreted and the report reviewed and electronically signed by: JUDAH CARDENAS MD on May 09 2021 1:39PM EST [id number] Normal [facility] XR FOOT 3V AP/LAT/OBL RTon 0 [...] and/or partial tearing Bilateral hands: Degenerative changes Supervisor Rod Placing: [facility] Transcribe Date/Time: May 09 2021 1:15P Dictated by : JUDAH CARDENAS MD This examination was interpreted and the report reviewed and electronically signed by: JUDAH CARDENAS MD on May 09 2021 1:39PM EST [id number] Normal [facility] XR HAND 3V PA/LAT/OBL LTon 0 [...] and/or partial tearing Bilateral hands: Degenerative changes Supervisor Rod Placing: BILL Transcribe Date/Time: May 09 2021 1:15P Dictated by : JUDAH CARDENAS MD This examination was interpreted and the report reviewed and electronically signed by: JUDAH CARDENAS MD on May 09 2021 1:39PM EST [id number] Normal [facility] XR HAND 3V PA/LAT/OBL RTon 0 [...] and/or partial tearing Bilateral hands: Degenerative changes Supervisor Rod Placing: BILL Transcribe Date/Time: May 09 2021 1:15P Dictated by : JUDAH CARDENAS MD This examination was interpreted and the report reviewed and electronically signed by: JUDAH CARDENAS MD on May 09 2021 1:39PM EST [id number] Normal [facility] XR HIP 3V PELV+ AP/LAT LTon [...] 3V PELV+ AP/LAT LT Laterality: RIGHT (accession [id number]), NOT APPLICABLE (accession [id number]) Number of different views (projections): 3 (accession [id number]), 2 (accession [id number]) COMPARISON: None RESULT: Right hip: Hip joint [...] CHANGES OF LEFT HIP.. NORMAL SACROILIAC JOINTS Supervisor Rod Placing: [employer] Transcribe Date/Time: May 06 2021 11:22A Dictated by : SEE MACKEY MD This examination was interpreted and the report reviewed and electronically signed by: SEE MACKEY MD on May 06 2021 11:26AM EST [id number] Normal [facility] XR HIP 3V PELV+ AP/LAT RTon [...] 3V PELV+ AP/LAT LT Laterality: RIGHT (accession [id number]), NOT APPLICABLE (accession [id number]) Number of different views (projections): 3 (accession [id number]), 2 (accession [id number]) COMPARISON: None RESULT: Right hip: Hip joint [...] CHANGES OF LEFT HIP.. NORMAL SACROILIAC JOINTS Supervisor Rod Placing: [employer] Transcribe Date/Time: May 06 2021 11:22A Dictated by : SEE MACKEY MD This examination was interpreted and the report reviewed and electronically signed by: SEE MACKEY MD on May 06 2021 11:26AM EST [id number] Normal [facility] XR KNEE SURVEY 1V AP BILon [...] nail in the left tibia. IMPRESSION: CHONDROCALCINOSIS. Supervisor Rod Placing: Transfercar Transcribe Date/Time: May 06 2021 11:19A Dictated by : SEE MACKEY MD This examination was interpreted and the report reviewed and electronically signed by: SEE MACKEY MD on May 06 2021 11:20AM EST [id number] Normal [facility] XR LUMBAR 2V AP/LATon 2021 XR [...] FACET DISEASE IN THE LOWER LUMBAR SPINE. Supervisor Rod Placing: BILL Transcribe Date/Time: May 06 2021 11:26A Dictated by : SEE MACKEY MD This examination was interpreted and the report reviewed and electronically signed by: SEE MACKEY MD on May 06 2021 11:29AM EST [id number] Normal [facility] XR SI JTS 2V AP PELV/FERGUSO [...] 3V PELV+ AP/LAT LT Laterality: RIGHT (accession [id number]), NOT APPLICABLE (accession [id number]) Number of different views (projections): 3 (accession [id number]), 2 (accession [id number]) COMPARISON: None RESULT: Right hip: Hip joint [...] CHANGES OF LEFT HIP.. NORMAL SACROILIAC JOINTS Supervisor Rod Placing: ASHELYB Transcribe Date/Time: May 06 2021 11:22A Dictated by : SEE MACKEY MD This examination was interpreted and the report reviewed and electronically signed by: SEE MACKEY MD on May 06 2021 11:26AM EST [id number] Normal [facility] cCP IgG SerPl-aCncon 022 Cyclic citrullinated peptide IgG Qn <15 Normal <20 [facility] Comment on above: Order Comment: Speci men Type: BLOOD SPECIMENOrdering Facility: [facility] Address: [address] [place] [id number] Performed By: #### 3 3935-8, DNAAB ####[facility] LABCLIA [id number] [facility] [place] [address] [place] Basophil percentageon 2021 Bilirubin [Mass/Vol] 0.60 mg/dL 0.20-1.00 [facility] Work Phone: Comment on above: For patients on eltr ombopag therapy, use of Dimension [employer] TBIL is not recommended. Chloride [Moles/Vol] 107 mmol/L 98-107 [facility] Work Phone: Cholesterol [Mass/Vol] 234 mg/dL <200 [facility] Work Phone: Comment on above: <200 mg/dL Desirable 200-240 mg/dL Borderline >240 mg/dL High Risk Glucose [Mass/Vol] 94 mg/dL 74-106 [facility] Work Phone: Potassium [Moles/Vol] 4.3 mmol/L 3.5-5.1 [facility] Work Phone: [phone] Protein [Mass/Vol] 7.4 g/dL 6.4-8.2 [facility] Work Phone: Sodium [Moles/Vol] 137 mmol/L 136-145 [facility] Work Phone: Triglyceride [Mass/Vol] 180 mg/dL [facility] Work Phone: Comment on above: The drugs N-Acetylcy steine and Metamizole may falsely depress this assay.Serum Triglycerides Reference Interval Normal <150 mg/dL Borderline high 150 - 199 mg/dL High 200 - 499 mg/dL Very High > or = 500 mg/dL Laboratory - Chemistry and C hemistry - challengeon 04-29-2021 ALP [Catalytic activity/Vol] 105 U/L 45-117 [facility] Work Phone: ALT [Catalytic activity/Vol] 23 U/L 13-56 [facility] Work Phone: CO2 [Moles/Vol] 25.0 mmol/L 21.0-32.0 [facility] Work Phone: Free T4 [Mass/Vol] 1.16 ng/dL 0.76-1.46 [facility] Work Phone: Globulin (S) [Mass/Vol] 3.9 g/dL 2.2-4.2 [facility] Work Phone: Urea nitrogen/Creatinine [Mass ratio] 19.1 mg/mg 10-20 [facility] Work Phone: No Panel Informationon 04-29 Estimated GFR (MDRD) Amer 70 mL/min >60 [facility] Work Phone: Comment on above: GFR Calc Estimated GFR (MDRD) Non-Af Amer 58 mL/min >60 [facility] Work Phone: Comment on above: Non- GFR Calc Free Triiodothyronine (T3) pg/dL 2.4 pg/mL 2.18-3.98 [facility] Work Phone: Thyroid Stimulating Hormone (TSH) 1.42 uIU/mL 0.358-3.74 [facility] Work Phone: Serum or plasma albumin iris urement (mass/volume)on 04-29-2021 Albumin [Mass/Vol] 3.5 g/dL 3.2-5.0 [facility] Work Phone: Serum or plasma albumin/glob ulin mass ratioon 04-29-2021 Albumin/Globulin [Mass ratio] 0.9 {ratio} 0.9-2.4 [facility] Work Phone: Serum or plasma calcium iris urement (mass/volume)on 04-29-2021 Calcium [Mass/Vol] 9.5 mg/dL 8.5-10.1 [facility] Work Phone: Serum or plasma cholesterol in HDL measurement (mass/volume)on 04-29-2021 Cholesterol in HDL [Mass/Vol] 47 mg/dL [facility] Work Phone: Comment on above: The drugs N-Acetylcy steine and Metamizole may falsely depress this assay. Reference Range HDL <40 mg/dL Low HDL Cholesterol HDL >or= 60 mg/dL High HDL Cholesterol Serum or plasma cholesterol in VLDL measurement (mass/volume)on 04-29-2021 Cholesterol in VLDL [Mass/Vol] 36 mg/dL 5-40 [facility] Work Phone: Serum or plasma creatinine m easurement (mass/volume)on 04-29-2021 Creatinine [Mass/Vol] 1.00 mg/dL 0.55-1.02 [facility] Work Phone: Comment on above: The validity of the calculated GFR & GFRAA in patients over 70 years has not been determined. Clinical correlation is essential. Serum or plasma low density lipoprotein (LDL) cholesterol measurement (mass/volume)on 04-29-2021 Cholesterol in LDL [Mass/Vol] 151 mg/dL 0-130 [facility] Work Phone: Serum or plasma urea nitroge n measurement (mass/volume)on 04-29-2021 Urea nitrogen [Mass/Vol] 19 mg/dL 7-18 [facility] Work Phone: Thin prep Papanicolaou smear with manual screeningon 04-29-2021 Thin prep Papanicolaou smear with manual screening 22 U/L 15-37 [facility] Work Phone: Thin prep Papanicolaou smear with manual screening 5 5-15 [facility] Work Phone: Office Visit: evaluation act inic lesions right lower cheek and nasal dorsumon 07-24-2016 Dietary management education, guidance, and counseling (procedure) yes Invalid Interpretation Code [facility] Work Phone: Documentation of current medications (procedure) Done Invalid Interpretation Code [facility] Work Phone: [phone] Fall risk assessment No Invalid Interpretation Code [facility] Work Phone: [phone] Protein mass conc Done [facility] Work Phone: [phone] Tobacco smoking status NHIS Never Invalid Interpretation Code [facility] Work Phone: [phone] Tobacco smoking status NHIS Never smoker [facility] Work Phone: [phone] Tobacco use CPHS Never smoker Invalid Interpretation Code [facility] Work Phone: [phone] Office Visit: evaluation act inic lesions lt ear, rt nasal ala, and rt cheekon 05-15-2016 Dietary management education, guidance, and counseling (procedure) yes Invalid Interpretation Code [facility] Work Phone: [phone] Documentation of current medications (procedure) Done Invalid Interpretation Code [facility] Work Phone: [phone] Fall risk assessment No Invalid Interpretation Code [facility] Work Phone: [phone] Tobacco smoking status NHIS Never Invalid Interpretation Code [facility] Work Phone: [phone] Tobacco use CPHS Never smoker Invalid Interpretation Code [facility] Work Phone: [phone] Office Visit: 6 mo f/u - PHQ 9 Completeon 12-28-2015 Adolescent depression screening assessment Adolescent depression screening assessment Invalid Interpretation Code [facility] Work Phone: [phone] Adult depression screening assessment Adult depression screening assessment Invalid Interpretation Code [facility] Work Phone: [phone] PHQ-9 quick depression assessment panel [Reported.PHQ] Adult depression screening assessment [facility] Work Phone: [phone] Lab Report: CBC W/Diff, Auto matedon 12-18-2015 Basophils/100 leukocytes 0.7 % Invalid Interpretation Code 0-1 [facility] Work Phone: [phone] Basophils/100 WBC (Bld) 0.7 % 0-1 [facility] Work Phone: [phone] Eosinophils/100 leukocytes 2.2 % Invalid Interpretation Code 0-5 [facility] Work Phone: [phone] Eosinophils/100 WBC (Bld) 2.2 % 0-5 [facility] Work Phone: [phone] Erythrocyte distribution width Ratio (RBC) 44.1 fL High 35.1-43.9 [facility] Work Phone: [phone] Erythrocyte distribution width Ratio (RBC) 13.3 % 11.6-14.6 [facility] Work Phone: [phone] Erythrocytes (RBC) 4.58 10*6/uL Invalid Interpretation Code 4.2-5.4 [facility] Work Phone: [phone] Hematocrit (HCT) 42.7 % Invalid Interpretation Code 37-47 [facility] Work Phone: [phone] Hematocrit Volume Fraction (Bld) 42.7 % 37-47 [facility] Work Phone: [phone] Hemoglobin (HGB) 13.9 g/dL Invalid Interpretation Code 12.0-15.0 [facility] Work Phone: [phone] Immature granulocytes #/vol (Bld) 0.000 % 0.0-0.9 [facility] Work Phone: [phone] immature granulocytes, percentage of total cells, blood 0.000 % Invalid Interpretation Code 0.0-0.9 [facility] Work Phone: [phone] Lymphocytes 1.75 X10 3/UL Invalid Interpretation Code 0.83-4.51 [facility] Work Phone: [phone] Lymphocytes #/vol (Bld) 1.75 X10 3/UL 0.83-4.51 [facility] Work Phone: [phone] Lymphocytes/100 leukocytes 21.5 % Invalid Interpretation Code 19-41 [facility] Work Phone: [phone] Lymphocytes/100 WBC (Bld) 21.5 % 19-41 [facility] Work Phone: [phone] MCH 30.3 pg Invalid Interpretation Code 27.0-32.0 [facility] Work Phone: [phone] MCH Entitic mass (RBC) 30.3 pg 27.0-32.0 [facility] Work Phone: [phone] MCHC 32.6 G/GL Invalid Interpretation Code 32-36 [facility] Work Phone: [phone] MCHC mass conc (RBC) 32.6 G/GL 32-[address] [facility] Work Phone: [phone] MCV 93.2 fL Invalid Interpretation Code 81-99 [facility] Work Phone: [phone] MCV Entitic volume (RBC) 93.2 fL 81-99 [facility] Work Phone: [phone] Monocytes/100 leukocytes 7.5 % Invalid Interpretation Code 0-10 [facility] Work Phone: [phone] Monocytes/100 WBC (Bld) 7.5 % 0-10 [facility] Work Phone: [phone] neutrophil count, blood 5.5 X10 3/UL Invalid Interpretation Code 2.0-7.7 [facility] Work Phone: [phone] Neutrophils #/vol (Bld) 5.5 X10 3/UL 2.0-7.7 [facility] Work Phone: [phone] Neutrophils/100 leukocytes 68.1 % Invalid Interpretation Code 47-70 [facility] Work Phone: [phone] Neutrophils/100 WBC (Bld) 68.1 % 47-70 [facility] Work Phone: [phone] Platelet mean volume Entitic volume (Bld) 12.1 fL High 6.2-12.0 [facility] Work Phone: [phone] Platelets 230 10*3/mm3 Invalid Interpretation Code 150-450 [facility] Work Phone: [phone] Platelets #/vol (Bld) 230 10*3/mm3 150-450 [facility] Work Phone: [phone] PMV by [place] 12.1 fL High 6.2-12.0 [facility] Work Phone: [phone] RBC #/vol (Bld) 4.58 10*6/uL 4.2-5.4 [facility] Work Phone: [phone] RDW-CA 13.3 % Invalid Interpretation Code 11.6-14.6 [facility] Work Phone: [phone] red blood cell distribution width, size density 44.1 fL High 35.1-43.9 [facility] Work Phone: [phone] WBC #/vol (Bld) 8.1 10*3/uL 4.4-11.0 [facility] Work Phone: [phone] WBC (Leukocytes) 8.1 10*3/uL Invalid Interpretation Code 4.4-11.0 [facility] Work Phone: [phone] Lab Report: [facility] 12-18-2015 Alanine aminotransferase (ALT) 25 U/L Invalid Interpretation Code 12-78 [facility] Work Phone: [phone] Albumin 3.8 g/dL Invalid Interpretation Code 3.4-5.0 [facility] Work Phone: [phone] Albumin/Globulin Ratio 1 {ratio} Invalid Interpretation Code 0.9-2.4 [facility] Work Phone: [phone] Alkaline phosphatase (ALP) 104 U/L Invalid Interpretation Code 50-136 [facility] Work Phone: [phone] ALP enzyme act/vol (Bld) 104 U/L 50-136 [facility] Work Phone: [phone] Anion gap 8 mmol/L Invalid Interpretation Code 5-15 [facility] Work Phone: [phone] Anion gap molar conc 8 mmol/L 5-[address] [facility] Work Phone: [phone] Aspartate aminotransferase (AST) 24 U/L Invalid Interpretation Code 15-37 [facility] Work Phone: [phone] Bilirubin (total) 0.50 mg/dL Invalid Interpretation Code 0.20-1.00 [facility] Work Phone: [phone] BUN/Creatinine Ratio 18.3 RATIO Invalid Interpretation Code 10-20 [facility] Work Phone: [phone] Calcium 9.1 mg/dL Invalid Interpretation Code 8.5-10.1 [facility] Work Phone: [phone] Chloride 105 mmol/L Invalid Interpretation Code 98-107 [facility] Work Phone: [phone] CO2 26.0 mmol/L Invalid Interpretation Code 21.0-32.0 [facility] Work Phone: [phone] CO2 ppres (BldV) 26.0 mmol/L 21.0-32.0 [facility] Work Phone: [phone] Creatinine 0.87 mg/dL Invalid Interpretation Code 0.55-1.20 [facility] Work Phone: [phone] eGFR (non-black) 83 mL/min/{1.73_m2} Invalid Interpretation Code >60 [facility] Work Phone: [phone] eGFR (non-black) 68 mL/min/{1.73_m2} Invalid Interpretation Code >60 [facility] Work Phone: [phone] EST GFR - AA 83 mL/min >60 [facility] Work Phone: [phone] Globulin 3.7 g/dL High 2.3-3.5 [facility] Work Phone: [phone] Globulin mass conc (S) 3.7 g/dL High 2.3-3.5 [facility] Work Phone: [phone] Glucose 89 mg/dL Invalid Interpretation Code 70-110 [facility] Work Phone: [phone] Glucose mass conc 89 mg/dL 70-110 [facility] Work Phone: [phone] Potassium 4.3 mmol/L Invalid Interpretation Code 3.5-5.1 [facility] Work Phone: [phone] Protein 7.5 g/dL Invalid Interpretation Code 6.4-8.2 [facility] Work Phone: [phone] Sodium 139 mmol/L Invalid Interpretation Code 136-145 [facility] Work Phone: [phone] Urea nitrogen 16 mg/dL Invalid Interpretation Code 7-18 [facility] Work Phone: [phone] Lab Report: LDHon 12-18-2015 lactate dehydrogenase - serum 232 U/L Invalid Interpretation Code 84-246 [facility] Work Phone: [phone] LDH 232 U/L 84-246 [facility] Work Phone: [phone] Lab Report: Lipid Profileon 12-18-2015 Cholesterol 190 mg/dL Invalid Interpretation Code 200 [facility] Work Phone: [phone] HDL Cholesterol 50 mg/dL Invalid Interpretation Code [facility] Work Phone: [phone] LDL Cholesterol 111 mg/dL Invalid Interpretation Code 0-130 [facility] Work Phone: [phone] Triglyceride 147 mg/dL Invalid Interpretation Code [facility] Work Phone: [phone] very low density lipoproteins 29 mg/dL Invalid Interpretation Code 5-40 [facility] Work Phone: [phone] Lab Report: Magnesiumon 11-20 Magnesium 2.0 mg/dL Invalid Interpretation Code 1.8-2.4 [facility] Work Phone: [phone] Lab Report: Thyroid Stim Hor marycarmen (TSH)on 12-18-2015 Thyroid stimulating hormone (TSH) 1.67 u[iU]/mL Invalid Interpretation Code 0.358-3.74 [facility] Work Phone: [phone] Lab Report: Uric Acidon 11-20 Urate 4.6 mg/dL Invalid Interpretation Code 2.6-6.0 [facility] Work Phone: [phone] Microbiology: Culture, Fungu s w/ [id number] 08-13-2015 CUFST . [facility] Work Phone: [phone] GE use only - for [employer] import when terms are not otherwise specified . Invalid Interpretation Code [facility] Work Phone: [phone] Lab Report: CBC W/Diff, Auto - EPLAB Onlyon 04-22-2014 Absolute Neut 6.3 X10 3/UL 2.0-7.7 [facility] Work Phone: [phone] Absolute Neutrophil count 6.3 X10 3/UL Invalid Interpretation Code 2.0-7.7 [facility] Work Phone: [phone] Replaced Document: LDHon Lactate dehydrogenase (LDH) 216 U/L Normal 87-241 [facility] Work Phone: [phone] Lab Report: VITDon 4 vitamin D 25-hydroxy, serum [id number] ng/mL Normal Units converted. See lab report for original value. [facility] Work Phone: VITD [phone] ng/mL Normal Units converted. See lab report for original value. [facility] Work Phone: [phone] Lab Report: B12on 06-25-2013 Cobalamin (Vitamin B12) mass conc 600 pg/mL Normal 211-911 [facility] Work Phone: [phone] vitamin b12, serum 600 pg/mL Normal 211-911 [facility] Work Phone: [phone] Lab Report: FERon 06-24-2013 Ferritin 505 ng/mL High 8-252 [facility] Work Phone: [phone] Lab Report: FOLon 06-24-2013 Folate 18.20 ng/mL High 3.1-17.5 [facility] Work Phone: [phone] Lab Report: IBCon 06-24-2013 Iron 60 ug/dL Normal 50-170 [facility] Work Phone: [phone] iron binding capacity, total 259 ug/dL Normal 250-450 [facility] Work Phone: [phone] Vital Signs Date Time Vital Sign Value Performing Clinician Facility 11-14-2024 07:43-0400 Body mass index (BMI) [Ratio] 23.9 kg/m2 Dr. Jesus Peters MD Work Phone: [facility] 11-14-2024 07:43-0400 Body weight 73.[address] Jesus Peters MD Work Phone: [facility] 11-14-2024 07:43-0400 Diastolic blood pressure 79 mm[Hg] Dr. Jesus Peters MD Work Phone: [facility] 11-14-2024 07:43-0400 Heart rate 87 /min Dr. Jesus Peters MD Work Phone: [facility] 11-14-2024 07:43-0400 Respiratory rate 18 /min Dr. Jesus Peters MD Work Phone: [facility] 11-14-2024 07:43-0400 SaO2% (BldA) [Mass fraction] 100 % Dr. Jesus Peters MD Work Phone: [facility] 11-14-2024 07:43-0400 Systolic blood pressure 126 mm[Hg] Dr. Jesus Peters MD Work Phone: [facility] 12-03-2023 15:24-0400 Body height 172.7 cm Kamila Mercado MD Work Phone: [facility] 12-03-2023 15:24-0400 Body mass index (BMI) [Ratio] 25.79 kg/m2 Kamila Mercado MD Work Phone: [facility] 12-03-2023 15:24-0400 Body temperature 96.01 [degF] Kamila Mercado MD Work Phone: [facility] 12-03-2023 15:24-0400 Body weight 76.93 kg Kamila Mercado MD Work Phone: [facility] 12-03-2023 15:24-0400 Diastolic blood pressure 78 mm[Hg] Kamila Mercado MD Work Phone: [facility] 12-03-2023 15:24-0400 Heart rate 106 /min Kamila Mercado MD Work Phone: [facility] 12-03-2023 15:24-0400 SaO2% (BldA) [Mass fraction] 97 % Kamila Mercado MD Work Phone: [facility] 12-03-2023 15:24-0400 Systolic blood pressure 138 mm[Hg] Kamila Mercado MD Work Phone: [facility] 11-12-2023 15:57-0400 Body height 170.2 cm Kamila Mercado MD Work Phone: [facility] 11-12-2023 15:57-0400 Body mass index (BMI) [Ratio] 26.47 kg/m2 Kamila Mercado MD Work Phone: [facility] 11-12-2023 15:57-0400 Body temperature 98.1 [degF] Kamila Mercado MD Work Phone: [facility] 11-12-2023 15:57-0400 Body weight 76.66 kg Kamila Mercado MD Work Phone: [facility] 11-12-2023 15:57-0400 Diastolic blood pressure 84 mm[Hg] Kamila Mercado MD Work Phone: [facility] 11-12-2023 15:57-0400 Heart rate 85 /min Kamila Mercado MD Work Phone: [facility] 11-12-2023 15:57-0400 SaO2% (BldA) [Mass fraction] 96 % Kamila Mercado MD Work Phone: [facility] 11-12-2023 15:57-0400 Systolic blood pressure 141 mm[Hg] Kamila Mercado MD Work Phone: [facility] 01-09-2023 08:12-0500 Body height 175.[address] Jesus Peters Work Phone: [facility] 01-09-2023 08:12-0500 Body mass index (BMI) [Ratio] 25.4 kg/m2 Dr. Jesus Peters Work Phone: [facility] 01-09-2023 08:12-0500 Body weight 78.[address] Jesus Peters Work Phone: [facility] 12-15-2022 13:10-0400 Diastolic blood pressure 66 mm[Hg] Kamila Mercado MD Work Phone: [facility] 12-15-2022 13:10-0400 Heart rate 60 /min Kamila Mercado MD Work Phone: [facility] 12-15-2022 13:10-0400 Respiratory rate 16 /min Kamila Mercado MD Work Phone: [facility] 12-15-2022 13:10-0400 SaO2% (BldA) [Mass fraction] 96 % Kamila Mercado MD Work Phone: [facility] 12-15-2022 13:10-0400 Systolic blood pressure 145 mm[Hg] Kamila Mercado MD Work Phone: [facility] 12-15-2022 11:39-0400 Body temperature 97.7 [degF] Kamila Mercado MD Work Phone: [facility] 08-07-2022 12:43-0400 Body weight 76.84 kg Pacc 2 Work Phone: [facility] 08-07-2022 12:43-0400 Diastolic blood pressure 74 mm[Hg] Pacc 2 Work Phone: [facility] 08-07-2022 12:43-0400 Heart rate 72 /min Pacc 2 Work Phone: [facility] 08-07-2022 12:43-0400 Respiratory rate 18 /min Pacc 2 Work Phone: [facility] 08-07-2022 12:43-0400 SaO2% (BldA) [Mass fraction] 95 % Pacc 2 Work Phone: [facility] 08-07-2022 12:43-0400 Systolic blood pressure 156 mm[Hg] Pacc 2 Work Phone: [facility] 11-22-2021 14:36-0400 Body height 175.[address] Jesus Peters Work Phone: [facility] 11-22-2021 14:36-0400 Body mass index (BMI) [Ratio] 25.4 kg/m2 Dr. Jesus Peters Work Phone: [facility] 11-22-2021 14:36-0400 Body weight 78.[address] Jesus Peters Work Phone: [facility] 11-22-2021 14:36-0400 Diastolic blood pressure 74 mm[Hg] Dr. Jesus Peters Work Phone: [facility] 11-22-2021 14:36-0400 Heart rate 90 /min Dr. Jesus Peters Work Phone: [facility] 11-22-2021 14:36-0400 Respiratory rate 16 /min Dr. Jesus Peters Work Phone: [facility] 11-22-2021 14:36-0400 SaO2% (BldA) [Mass fraction] 99 % Dr. Jesus Peters Work Phone: [facility] 11-22-2021 14:36-0400 Systolic blood pressure 121 mm[Hg] Dr. Jesus Peters Work Phone: [facility] 02-09-2021 09:25-0500 Heart rate 89 /min Dr. Jesus Peters Work Phone: [facility] Work Phone: 02-09-2021 09:25-0500 Respiratory rate 17 /min Dr. Jesus Peters Work Phone: [facility] Work Phone: 02-09-2021 09:25-0500 SaO2% (BldA) [Mass fraction] 98 % Dr. Jesus Peters Work Phone: [facility] Work Phone: 02-09-2021 07:51-0500 Body height 175.[address] Jesus Peters Work Phone: [facility] Work Phone: 02-09-2021 07:51-0500 Body mass index (BMI) [Ratio] 25.7 kg/m2 Dr. Jesus Peters Work Phone: [facility] Work Phone: 02-09-2021 07:51-0500 Body temperature 98.2 [degF] Dr. Jesus Peters Work Phone: [facility] Work Phone: 02-09-2021 07:51-0500 Body weight 79.[address] Jesus Peters Work Phone: [facility] Work Phone: 02-09-2021 07:51-0500 Diastolic blood pressure 92 mm[Hg] Dr. Jesus Peters Work Phone: [facility] Work Phone: 02-09-2021 07:51-0500 Systolic blood pressure 167 mm[Hg] Dr. Jesus Peters Work Phone: [facility] Work Phone: 01-31-2021 12:20-0500 Body mass index (BMI) [Ratio] 26.6 kg/m2 Dr. Jesus Peters Work Phone: [facility] Work Phone: 01-31-2021 12:20-0500 Body weight 77.[address] Jesus Peters Work Phone: [facility] Work Phone: 01-31-2021 12:20-0500 Diastolic blood pressure 83 mm[Hg] Dr. Jesus Peters Work Phone: [facility] Work Phone: 01-31-2021 12:20-0500 Heart rate 76 /min Dr. Jesus Peters Work Phone: [facility] Work Phone: 01-31-2021 12:20-0500 Respiratory rate 18 /min Dr. Jesus Peters Work Phone: [facility] Work Phone: 01-31-2021 12:20-0500 SaO2% (BldA) [Mass fraction] 99 % Dr. Jesus Peters Work Phone: [facility] Work Phone: 01-31-2021 12:20-0500 Systolic blood pressure 129 mm[Hg] Dr. Jesus Peters Work Phone: [facility] Work Phone: 07-24-2016 13:12-0400 BMI (Body Mass Index) 27.43 kg/m2 Mason Link MD [facility] Work Phone: 07-24-2016 13:12-0400 Body Temperature 97.9 [degF] Mason Link MD [facility] Work Phone: 07-24-2016 13:12-0400 BSA (Body Surface Area) 1.96 m2 Mason Link MD [facility] Work Phone: 07-24-2016 13:12-0400 Height 172.72 cm Maosn Link MD [facility] Work Phone: 07-24-2016 13:12-0400 Pulse (Heart Rate) 75 /min Mason Link MD [facility] Work Phone: 07-24-2016 13:12-0400 Respiratory Rate 16 /min Mason Link MD [facility] Work Phone: 07-24-2016 13:12-0400 Weight 81.83 kg Mason Link MD [facility] Work Phone: 05-15-2016 13:08-0400 BMI (Body Mass Index) 27.4 kg/m2 Mason Link [facility] Work Phone: 05-15-2016 13:08-0400 Body Temperature 98.1 [degF] Mason Link MD [facility] Work Phone: 05-15-2016 13:08-0400 BP Diastolic 77 mm[Hg] Mason Link MD [facility] Work Phone: 05-15-2016 13:08-0400 BP Systolic 127 mm[Hg] Mason Link MD [facility] Work Phone: 05-15-2016 13:08-0400 BSA (Body Surface Area) 1.96 m2 Mason Link MD [facility] Work Phone: 05-15-2016 13:08-0400 Height 172.72 cm Mason Link MD [facility] Work Phone: 05-15-2016 13:08-0400 Pulse (Heart Rate) 89 /min Mason Link MD [facility] Work Phone: 05-15-2016 13:08-0400 Pulse Oximetry 96 % Mason Link MD [facility] Work Phone: 05-15-2016 13:08-0400 Respiratory Rate 16 /min Mason Link MD [facility] Work Phone: 05-15-2016 13:08-0400 Weight 81.74 kg Mason Link MD [facility] Work Phone: 12-28-2015 13:050 Height 172.72 cm Mason Link MD [facility] Work Phone: 12-28-2015 13:050 Weight 77.36 kg Mason Link MD [facility] Work Phone: 12-29-2014 13:050 Body Temperature 97.59 [degF] Mason Link MD [facility] Work Phone: Encounters Encounter Date Encounter Type Care Provider Facility Start: 12-19-2024 End: 12-19-2024 ambulatory Jesus Peters [place] Start: 12-19-2024 End: 12-19-2024 ambulatory Leah Pearce NP Facility:[facility] Start: 12-11-2024 ambulatory Jesus Peters Facility:[facility] Start: 12-11-2024 End: 12-11-2024 ambulatory Leah Pearce FISHER TRAP Facility:[facility] Start: 11-14-2024 End: 11-14-2024 Patient encounter procedure Leah Pearce [facility] TRAP-[facility] Work Phone: Start: 11-14-2024 End: 11-14-[address] Jesus Peters MD Work Phone: -[facility] Start: 10-06-2024 End: 10-06-[address] Jesus Peters MD Work Phone: -Laboratory [facility] Start: 10-06-2024 End: 10-06-[address] Jesus Peters MD -Laboratory [facility] Start: 10-06-2024 End: 10-06-2024 ambulatory Jesus Peters Facility:[facility] Start: 06-05-2024 End: 06-05-[address] Jesus Peters MD Work Phone: [facility] Work Phone: Start: 06-05-2024 End: 06-05-[address] Jesus Peters MD -Laboratory Work Phone: Start: 06-05-2024 End: 06-05-2024 ambulatory Jesus Peters Facility:[facility] Start: 05-20-2024 End: 05-20-[address] Jesus Peters MD Work Phone: [facility] Work Phone: Start: 05-20-2024 End: 05-20-[address] [facility] Start: 05-20-2024 End: 05-20-2024 ambulatory Jesus Peters Facility:[facility] Start: 04-03-2024 End: 04-03-[address] [facility] Start: 04-03-2024 End: 04-03-2024 ambulatory Jesus Peters Facility:[facility] Start: 03-20-2024 End: 03-20-[address] Jesus Peters MD -Laboratory, [place] Work Phone: Start: 03-20-2024 End: 03-20-2024 ambulatory Jesus Peters Facility:[facility] Start: 03-11-2024 End: 05-08-2024 Telephone encounter Kamila Mercado MD Work Phone: General Surgery Comment on above: Results Release Of Medical R ecords (Imaging) Start: 03-04-2024 End: 03-04-2024 ambulatory KAMILA MERCADO Facility:[facility] Start: 03-04-2024 End: 03-04-2024 Subsequent hospital visit by physician [facility] (I-Stat) Work Phone: Cat Scan Comment on above: Lung nodules [R91.8] Start: 01-10-2024 End: 01-10-2024 ambulatory Jesus Peters Facility:[facility] Start: 12-03-2023 End: 12-03-2023 ambulatory KAMILA MERCADO Facility:[facility] Start: 12-03-2023 End: 12-03-2023 Patient encounter procedure Kamila Mercado MD Work Phone: General Surgery Comment on above: Lung nodules (Primar y Dx); Abnormal chest CT Start: 11-26-2023 End: 11-26-2023 ambulatory JESUS PETERS Facility:[facility] Start: 11-26-2023 End: 11-26-2023 Subsequent hospital visit by physician [facility] (I-Stat) Work Phone: Cat Scan Comment on above: History of left laurence st cancer [Z85.3] Start: 11-12-2023 End: 11-12-2023 ambulatory KAMILA MERCADO Facility:[facility] Start: 11-12-2023 End: 11-12-2023 Patient encounter procedure Kamila Mercado MD Work Phone: General Surgery Comment on above: Mass of left chest w all (Primary Dx); History of left breast cancer; Status post mastectomy, bilateral Start: 05-21-2023 End: 05-21-2023 ambulatory [facility] Work Phone: Start: 05-21-2023 End: 05-21-2023 Patient encounter procedure [facility] Start: 02-21-2023 End: 02-21-[address] Jesus Peters Work Phone: [facility] Work Phone: Start: 02-21-2023 End: 02-21-[address] Jesus Peters Work Phone: [facility] Start: 01-09-2023 End: 01-09-[address] Jesus Peters Work Phone: [facility] Work Phone: Start: 01-05-2023 Non-patient / Non-visit Dr. Denver Peters Work Phone: [facility] Start: 01-05-2023 End: 01-05-[address] Jesus Peters Work Phone: [facility] Work Phone: Start: 01-05-2023 End: 01-05-[address] Jesus Peters Work Phone: [facility]-Cardiovascular Services Work Phone: Start: 12-15-2022 End: 12-15-2022 Subsequent hospital visit by physician Kamila Mercado MD Work Phone: Ambulatory Surgery Comment on above: Screening for colon cancer [Z12.11] Start: 12-13-2022 End: 12-13-[address] Jesus Peters Work Phone: [facility] Work Phone: Start: 12-13-2022 End: 12-13-[address] Jesus Peters Work Phone: [facility]-Physical Therapy Work Phone: Start: 12-13-[address] [facility] Start: 11-27-2022 End: 11-27-2022 Patient encounter procedure Kamila Mercado MD Work Phone: General Surgery Comment on above: Pigmented skin lesio n of uncertain behavior of lower extremity (Primary Dx) Start: 11-27-2022 End: 11-27-[address] Jesus Peters Work Phone: [facility]-Physical Therapy Work Phone: Start: 11-24-2022 Telephone encounter Kamila Hirsch MD Work Phone: General Surgery Comment on above: Medication Problem Start: 11-13-2022 [facility] Start: 11-08-2022 End: 11-08-2022 ambulatory [facility] Work Phone: Start: 11-08-2022 End: 11-08-2022 Patient encounter procedure [facility] Start: 09-15-2022 End: 09-15-2022 Patient encounter [facility] Work Phone: Start: 08-31-2022 End: 08-31-2022 ambulatory NAYELI PEREZ Facility:[id number] Start: 08-24-2022 End: 08-24-2022 ambulatory [facility] Work Phone: Start: 08-24-2022 End: 08-24-2022 Patient encounter procedure [facility]-Laboratory, [facility] Start: 08-24-2022 Telephone encounter Esthela Jimenez RN Pre Anesthesia Comment on above: PreOp Call Start: 08-10-2022 Telephone encounter Esthela Jimenez RN Pre Anesthesia Comment on above: PreOp Call Start: 08-07-2022 End: 08-07-2022 Subsequent hospital visit by physician Xr [facility] 3 RADIO GEN [facility] Comment on above: Hypertension, unspec ified type [I10] Start: 08-07-2022 Encounter for other preprocedural examination [facility] Start: 08-07-2022 Encounter for preprocedural cardiovascular examination [facility] Start: 08-07-2022 End: 08-07-2022 Admission to [place] [id number] Work Phone: [facility] Start: 08-07-2022 End: 08-08-2022 ambulatory JESUS PETERS Pre Anesthesia Comment on above: Preop cardiovascular exam (Primary Dx); Preop testing; Hypertension, unspecified type Start: 08-07-2022 End: 08-07-[address] [facility] Work Phone: Pre Anesthesia Start: 07-25-2022 Transcribe Orders Deb Hahn MA Patient Services Comment on above: Acquired absence of breast and absent nipple, unspecified laterality (Primary Dx) Start: 05-12-2022 End: 05-12-2022 ambulatory [facility] Work Phone: Start: 05-12-2022 End: 05-12-2022 Patient encounter procedure [facility]-Laboratory Start: 03-01-2022 End: 01-11-[address] Jesus Peters Work Phone: [facility] Work Phone: Start: 03-01-2022 End: 03-01-[address] Jesus Peters Work Phone: [facility]-Laboratory Start: 01-26-2022 End: 01-26-[address] Jesus Peters Work Phone: [facility]-Cat Scan, [facility] Start: 12-21-2021 End: 12-21-[address] Jesus Peters Work Phone: [facility] Work Phone: Start: 12-21-2021 End: 12-21-[address] Jesus Peters Work Phone: [facility]-MRI - [facility] Start: 11-22-2021 End: 11-22-[address] Jesus Peters Work Phone: [facility] Start: 07-01-2021 Telephone encounter Irasema eduardo MD Work Phone: [facility] General Rheumatology and Arthritis Comment on above: Results Start: 05-31-2021 End: 05-31-2021 ambulatory Irasema Vela MD Work Phone: [facility] General Rheumatology and Arthritis Comment on above: Osteoporosis, unspec ified osteoporosis type, unspecified pathological fracture presence (Primary Dx); Primary osteoarthritis involving multiple joints Start: 05-31-2021 End: 05-31-2021 Telemedicine consultation with patient Irasema Vela MD Work Phone: [facility] Start: 05-20-2021 End: 05-20-[address] Jesus Peters Work Phone: [facility]-Physical Therapy Start: 05-13-2021 Telephone encounter Irasema eduardo MD Work Phone: [facility] General Rheumatology and Arthritis Comment on above: Patient Question Start: 05-13-[address] Jesus Peters Work Phone: [facility]-Physical Therapy Start: 05-10-2021 End: 05-10-[address] Jesus Peters Work Phone: [facility]-Outpatient Bone Densitometry Start: 04-29-2021 End: 04-29-[address] Jesus Peters Work Phone: [facility]-Laboratory, [facility] Start: 02-15-[address] Jesus Peters Work Phone: [facility]-Cat Scan, [facility] Start: 02-09-2021 End: 02-09-2021 Emergency department patient visit Dr. Jesus Peters Work Phone: [facility]-Emergency Department Start: 01-31-2021 End: 01-31-[address] Jesus Peters Work Phone: [facility] Procedures Date Procedure Procedure Detail Performing Clinician Start: 12-15-2022 Colonoscopy flx dx w/collj spec when pfrmd Kamila Mercado MD Work Phone: Start: 11-27-2022 SURGICAL PATHOLOGY Ethan Mercado MD Work Phone: Start: 09-15-2022 Radiologic examinati on of knee Start: 08-07-2022 End: 08-07-2022 Antibody screen Pacc 2 Work Phone: Comment on above: Order Comment: Speci men Type: BLOOD SPECIMEN Ordering Facility: [facility] Address: [address] [place] [id number] Performed By: #### T [id number] #### [facility]LOOD [facility] CLIA [id number] [address] [place] [address] [place] Start: 08-07-2022 Radiologic exam ches t 2 [...] 06-29-2015 End: 06-29-2015 Lactate dehydrogenase (LDH) Maryanne Lanza Work Phone: Start: 06-29-2015 End: 06-29-2015 Urate Maryanne Lanza Work Phone: Start: 05-14-2015 End: 07-14-2015 Follow Up Appt Other Mason Link MD Start: 04-07-2015 Screening mammography [facility] screening for breast cancer Mason Link MD Start: 12-22-2014 End: 12-22-2014 *CMP Complete Metabolic Panel Hoskins M Alam Work Phone: Start: 12-22-2014 End: 12-22-2014 Lactate dehydrogenase (LDH) [facility] M Al[facility] Work Phone: Start: 12-22-2014 End: 12-22-2014 Urate Hoskins M Alam Work Phone: Start: 10-07-2014 End: 10-19-2014 Follow [...] End: 08-25-2013 *CBC with Differential Hoskins M Alam Work Phone: Start: 08-25-2013 End: 08-26-2013 *CMP Complete Metabolic Panel Hos[facility] M Alam Work Phone: Start: 08-25-2013 End: 08-25-2013 Lactate dehydrogenase (LDH) [facility] M Al[facility] Work Phone: Start: 08-25-2013 End: 08-26-2013 Urate Hoskins M Alam Work Phone: Start: 08-12-2013 End: 08-12-2013 Echo [...] DTaP,Tdap,Td Vaccine (2 - Td or Tdap) [facility] Start: 08-07-2025 DIABETES SCREEN DIABETES SCREEN [facility] Start: 08-07-2025 Diabetes Screening Diabetes Screenin g [facility] Start: 05-06-2024 DIABETES SCREEN DIABETES SCREEN [facility] Start: 03-04-2024 End: 01-01-2025 CT Chest WO contrast [facility] Work Phone: Comment on above: Expected: 03/04/2024 , Expires: 01/01/2025 Start: 03-04-2024 End: 03-04-2024 Patient encounter procedure 03/04/2024 8:00 AM EST Appointment Cat Scan [address] [place] [id number] CT CHEST Cat Scan Comment on above: CT CHEST Start: 02-20-2024 Advance Directive Discussion Advance Directive Discussion [facility] Start: 12-10-2023 End: 12-10-2023 Patient encounter procedure 12/10/2023 8:30 AM EDT Office Visit General Surgery [address], [place] [id number] Kamila Mercado MD [address] [place] [id number] CT COLLOW UP General Surgery Comment on above: CT COLLOW UP Start: 11-26-2023 End: 11-26-2023 Patient encounter procedure 11/26/2023 8:00 AM EDT Appointment Cat Scan [address], [place] [address] 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] Cat Scan Comment on above: 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] Start: 11-12-2023 End: 02-11-2024 CREATININE BLD CREATININE BLD Lab Routine Mass of left chest wall Expected: 11/12/2023, Expires: 02/11/2024 [facility] Comment on above: Expected: 11/12/2023 , Expires: 02/11/2024 Start: 10-21-2023 Covid-19 Vaccine ( season) Covid-19 Vaccine () [facility] Start: 10-21-2023 Influenza vaccination Influenza Vacc ine (#1) [facility] Start: 02-19-2023 Advance Directive Discussion Advance Directive Discussion [facility] Start: 10-20-2022 Covid-19 Vaccine () Covid-19 Vaccine () [facility] Start: 10-20-2022 Influenza vaccination [facility] Start: 03-19-2022 Covid-19 Vaccine (7 - Pfizer series) Covid-19 Vaccine (7 - Pfizer series) [facility] Start: 02-19-2022 ADVANCE DIRECTIVE DISCUSSION ADVANCE DIRECTIVE DISCUSSION [facility] Start: 02-19-2022 DEPRESSION ASSESSMENT DEPRESSION ASS ESSMENT [facility] Start: 11-09-2021 Colonoscopy COLONOSCOPY [facility] Start: 11-09-2021 COLORECTAL CANCER SCREENING COLORECTAL CANCER SCREENING [facility] Start: 02-19-2021 ADVANCE DIRECTIVE DISCUSSION ADVANCE DIRECTIVE DISCUSSION [facility] Start: 02-09-2021 Simple repair f/e/e/n/l/m 2.5cm/< RPR F/E/E/N/L/M 2.5 CM/< [facility] Work Phone: Start: 01-06-2021 COVID-19 VACCINE (5 - Booster for Pfizer series) COVID-19 VACCINE (5 - Booster for Pfizer series) [facility] Start: 10-29-2016 LIPID SCREEN LIPID SCREEN [facility] Start: 09-28-2016 End: 09-28-2016 Appointment Appointment [facility] Work Phone: Start: 07-24-2016 End: 07-24-2016 Appointment Appointment [facility] Work Phone: Start: 07-24-2016 End: 09-18-2016 Follow Up Appt 2 months Follow Up Appt 2 months [facility] Work Phone: Start: 06-13-2016 End: 12-28-2015 *CBC w/Diff - oncology ONLY *CBC w/Diff - oncology ONLY [facility] Work Phone: Start: 06-13-2016 End: 12-28-2015 *CMP Complete Metabolic Panel *CMP Complete Metabolic Panel [facility] Work Phone: Start: 06-13-2016 End: 12-28-2015 Lactate dehydrogenase (LDH) *LDH -LDH (Lactate Dehydrogenase) [facility] Work Phone: Start: 06-13-2016 End: 12-28-2015 Magnesium *Magnesium [facility] Work Phone: Start: 06-13-2016 End: 12-28-2015 Urate *Uric Acid Blood [facility] Work Phone: Start: 05-15-2016 End: 06-08-2016 Follow Up Appt 2 months Follow Up Appt 2 months [facility] Work Phone: Start: 12-28-2015 End: 06-29-2015 *CBC with Differential *CBC with Differential [facility] Work Phone: Start: 12-28-2015 End: 06-29-2015 *CMP Complete Metabolic Panel *CMP Complete Metabolic Panel [facility] Work Phone: Start: 12-28-2015 End: 06-29-2015 Lactate dehydrogenase (LDH) *LDH -LDH (Lactate Dehydrogenase) [facility] Work Phone: Start: 12-28-2015 End: 06-29-2015 Magnesium *Magnesium [facility] Work Phone: Start: 12-28-2015 End: 06-29-2015 Urate *Uric Acid Blood [facility] Work Phone: Start: 11-15-2015 End: 12-12-2015 Follow Up Appt 6 months Follow Up Appt 6 months [facility] Work Phone: Start: 09-13-2015 End: 10-08-2015 Follow Up Appt 2 months Follow Up Appt 2 months [facility] Work Phone: Start: 07-26-2015 End: 10-07-2015 Follow Up Appt 2 months Follow Up Appt 2 months [facility] Work Phone: Start: 07-20-2015 End: 07-25-2015 Follow up Appt 1 week Follow up Appt 1 week [facility] Work Phone: Start: 06-29-2015 End: 2014 *CBC with Differential *CBC with Differential [facility] Work Phone: Start: 06-29-2015 End: 06-30-2015 *CMP Complete Metabolic Panel *CMP Complete Metabolic Panel [facility] Work Phone: Start: 06-29-2015 End: 06-29-2015 Lactate dehydrogenase (LDH) *LDH -LDH (Lactate Dehydrogenase) [facility] Work Phone: Start: 06-29-2015 End: 06-29-2015 Urate *Uric Acid Blood [facility] Work Phone: Start: 05-14-2015 End: 07-14-2015 Follow Up Appt Other Follow Up Appt Other [facility] Work Phone: Start: 04-07-2015 End: 04-07-2015 Mammogram, one breast Mammography; unilateral [facility] Work Phone: Start: 12-29-2014 End: 10-19-2014 *CBC with Differential *CBC with Differential [facility] Work Phone: Start: 12-29-2014 End: 12-22-2014 *CMP Complete Metabolic Panel *CMP Complete Metabolic Panel [facility] Work Phone: Start: 12-29-2014 End: 12-22-2014 Lactate dehydrogenase (LDH) *LDH -LDH (Lactate Dehydrogenase) [facility] Work Phone: Start: 12-29-2014 End: 12-22-2014 Urate *Uric Acid Blood [facility] Work Phone: Start: 10-07-2014 End: 10-19-2014 Follow Up Appt Other Follow Up Appt Other [facility] Work Phone: Start: 04-22-2014 End: 04-16-2014 *CBC with Differential *CBC with Differential [facility] Work Phone: Start: 04-03-2014 End: 10-19-2014 Follow Up Appt 6 months Follow Up Appt 6 months [facility] Work Phone: Start: 02-03-2014 End: 03-20-2014 Follow Up Appt Other Follow Up Appt Other [facility] Work Phone: Start: 10-31-2013 End: 03-20-2014 Follow Up Appt 3 months Follow Up Appt 3 months [facility] Work Phone: Start: 10-07-2013 End: 10-13-2013 Follow Up Appt 2 months Follow Up Appt 2 months [facility] Work Phone: Start: 09-29-2013 End: 09-24-2013 *CBC with Differential *CBC with Differential [facility] Work Phone: Start: 09-29-2013 End: 09-24-2013 25-Hydroxyvitamin D2+25-Hydroxyvitamin D3 [Mass/volume] in Serum or Plasma *Vitamin D (Calciferol) [facility] Work Phone: Start: 09-09-2013 End: 09-12-2013 Follow Up Appt 1 month Follow Up Appt 1 month [facility] Work Phone: Start: 08-25-2013 End: 08-25-2013 *CBC with Differential *CBC with Differential [facility] Work Phone: Start: 08-25-2013 End: 08-25-2013 *CMP Complete Metabolic Panel *CMP Complete Metabolic Panel [facility] Work Phone: Start: 08-25-2013 End: 08-25-2013 Lactate dehydrogenase (LDH) *LDH -LDH (Lactate Dehydrogenase) [facility] Work Phone: Start: 08-25-2013 End: 08-25-2013 Urate *Uric Acid Blood [facility] Work Phone: Start: 08-12-2013 End: 08-12-2013 Echo exam of abdomen US Abdomen, limited [facility] Work Phone: Start: 08-12-2013 End: 08-12-2013 Follow Up Appt 1 month Follow Up Appt 1 month [facility] Work Phone: Start: 07-21-2013 End: 07-21-2013 Ct abdomen w/o & w/dye CT Abdomen with and without Contrast [facility] Work Phone: Start: 07-21-2013 End: 07-21-2013 Follow up Appt 3 weeks Follow up Appt 3 weeks [facility] Work Phone: Start: 07-07-2013 End: 07-07-2013 Follow Up Appt 2 weeks Follow Up Appt 2 weeks [facility] Work Phone: Start: 06-24-2013 End: 06-27-2013 Bacteria anaerobode culture *CUAN - Culture, Anaerobic, Any Source [facility] Work Phone: Start: 06-24-2013 End: 06-27-2013 Bacterica wound culture *CUW - Culture, Wound (Aerobic) [facility] Work Phone: Start: 06-24-2013 End: 06-27-2013 Follow Up Appt 2 weeks Follow Up Appt 2 weeks [facility] Work Phone: Start: 06-10-2013 End: 06-27-2013 Follow Up Appt 2 weeks Follow Up Appt 2 weeks [facility] Work Phone: Start: 05-30-2013 End: 06-27-2013 Follow up Appt 1 week Follow up Appt 1 week [facility] Work Phone: Start: 05-26-2013 End: 05-28-2013 Follow Up Appt Other Follow Up Appt Other [facility] Work Phone: Start: 05-05-2013 End: 05-06-2013 Follow Up Appt Other Follow Up Appt Other [facility] Work Phone: Start: 11-30-2011 PNEUMOVAX AGE 65 AND OVER WITH 5YR LOOKBACK (#1) PNEUMOVAX AGE 65 AND OVER WITH 5YR LOOKBACK (#1) [facility] Start: 02-08-2011 Screening for osteoporosis Bone Density Screening [facility] Start: 2010 Pneumococcal Vaccine : 65+ (2 - PCV) Pneumococcal Vaccine: 65+ (2 - PCV) [facility] Start: 11-25-2009 End: 12-06-2009 Mammogram, Screening, both breasts Mammogram, Screening, both breasts [facility] Work Phone: Start: 11-30-2007 PNEUMOCOCCAL: 65+ (2 - PCV) PNEUMOCOCCAL: 65+ (2 - PCV) [facility] Start: 08-05-2007 SHINGRIX VACCINE (2 of 3) SHINGRIX VACCINE (2 of 3) [facility] Start: 2005 RSV Vaccine (1 - 1-d ose 60+ series) RSV Vaccine (1 - 1-dose 60+ series) [facility] Start: 1990 COLOGUARD (FIT-DNA) COLOGUARD (FIT-D NA) [facility] Start: [address] COLONOGRAPHY [facility] Start: 1990 FECAL OCCULT BLOOD FECAL OCCULT BLOO D [facility] Start: 1990 SIGMOIDOSCOPY SIGMOIDOSCOPY [facility] Start: 1964 Urine microalbumin profile [facility] Start: 12-31-1963 ANNUAL PCP TEAM BOOKING MANAGER LAKSHMI DISEASE VISIT ANNUAL PCP TEAM CHRONIC DISEASE VISIT [facility] Start: 12-31-1963 Anxiety Screening Anxiety Screening [facility] Start: 12-31-1963 BP CONTROLLED (<130/80) BP CONTROLLE D (<130/80) [facility] Start: 12-31-1963 Depression Screening Depression Scre ening [facility] Start: 1957 Adult depression screening assessment DEPRESSION SCREENING [facility] End: 12-11-2024 CT Chest W contrast IV CT CHEST W IVCON Radiology Routine Mass of left chest wall 1 Occurrences starting 11/12/2023 until 12/11/2024 [facility] Work Phone: Comment on above: 1 Occurrences starti ng 11/12/2023 until 12/11/2024 End: 12-11-2024 CT Chest WO contrast CT CHEST WO IVCON Radiology Routine History of left breast cancer 1 Occurrences starting 11/12/2023 until 12/11/2024 [facility] Comment on above: 1 Occurrences starti ng 11/12/2023 until 12/11/2024 CT Chest WO contrast CT CHEST WO IVCON Radiology Routine History of left breast cancer 11/26/2023 8:32 AM EDT [facility] Work Phone: Patient Education [facility] Work Phone: Patient referral [facility] Work Phone: [facility] Immunizations Immunization Date Immunization Notes Care Provider Reagan murillo 11-13-2022 influenza virus vacc ine, unspecified formulation Kamila Mercado MD Work Phone: [facility] 02-09-2021 tetanus toxoid, redu melvin diphtheria toxoid, and acellular pertussis vaccine, adsorbed Dr. Jesus Peters Work Phone: [facility] 05-13-2020 Covid (Pfizer) Dr. Jesus watts Work Phone: [facility] 04-22-2020 Covid (Pfizer) Dr. Jesus watts Work Phone: [facility] 11-19-[address] Jesus Peters Work Phone: [facility] 11-19-[address] Ramonita Peters Work Phone: [facility] Work Phone: 11-19-2012 pneumococcal vaccine , unspecified formulation Dr. Jesus Peters Work Phone: [facility] 12-26-2010 influenza virus vacc ine, unspecified formulation Irasema Vela MD Work Phone: [facility] 01-27-2009 novel influenza-H1N1 -09, all formulations Irasema Vela MD Work Phone: [facility] Work Phone: 11-23-2008 influenza virus vacc ine, unspecified formulation Irasema Vela MD Work Phone: [facility] Work Phone: 12-25-2007 influenza virus vacc ine, unspecified formulation Irasema Vela MD Work Phone: [facility] Work Phone: 06-10-2007 zoster vaccine, live Tatianna Vela MD Work Phone: [facility] Work Phone: 12-18-2006 influenza virus vacc ine, unspecified formulation Irasema Vela MD Work Phone: [facility] Work Phone: 11-29-2006 pneumococcal polysaccharide vaccine, 23 valent Irasema Vela MD Work Phone: [facility] Work Phone: Payers Date Payer Category Payer Self-pay [id number] 2023 Medicare (Managed Care) MMO CHANELL DVANTAGE O [id number] 2023 Medicare [id number] 2022 Medicare [id number] 2021 Medicare MMO MEDICARE MMO MEDADVANTAGE O [id number] 2021-Present [phone] [address] [place] [address] [facility] [id number] 2021 Medicare [id number] 2014 Unknown [id number] 2010 Medicare [id number] Medicare [id number] Unknown [id number] Unknown [id number] Unknown [id number] Unknown [id number] Unknown [id number] Unknown [id number] Unknown [id number] Unknown [id number] Unknown [id number] Unknown [id number] Unknown [id number] Unknown [id number] Unknown [id number] Unknown [id number] Unknown [id number] Social History Date Type Detail Facility [facility]: [facility] Start: 05-06-2021 Alcohol intake Current non-dr customer experience specialist of alcohol (finding) [facility] Start: 1945 Sex Assigned At Not on file [facility] Start: 04-26-2021 End: 05-06-2021 Exposure to SARS-CoV-2 (event) Not sure [facility] Start: 02-09-2021 End: 01-09-2023 Tobacco smoking status GAIS Unknown if ever smoked [facility] Start: 06-28-2019 None [facility] Start: 06-28-2019 Alone [facility] Start: 07-24-2019 Non-smoker [facility] Start: 1945 Sex Assigned At Female [facility] Start: 05-21-2021 End: 05-31-2021 Exposure to SARS-CoV-2 (event) Unable to assess [facility] Start: 07-28-2022 End: 12-03-2023 Alcohol intake Lifetime non-drinker (finding) [facility] Start: 01-25-2020 End: 11-20-2022 History of Social function [facility] Start: 01-25-2020 End: 11-20-2022 Tobacco use panel [facility] National Score (1-100), lower number is lower risk Not on file [facility] Start: 05-26-2024 End: 06-11-2024 Sex Female (finding) [facility] Medical Equipment Procedure Code Equipment Code [...] Stem Equinoxe 10 mm Humeral Sterile - [id number] Start: 08-31-2022 Plate Equinoxe Standard Glenoid Reverse - [id number] Start: 08-31-2022 Screw Equinoxe 4.5mm Black 22mm Bone Kit Compression Lock Cap Reverse - [id number] Start: 08-31-2022 Liner Equinoxe 3 8mm +2.5mm Humeral Reverse Shoulder - [id number] Start: 08-31-2022 Tray Equinoxe +0 mm Humeral Adapter Reverse Shoulder System - [id number] Start: 08-31-2022 Screw Equinoxe B one Lock Reverse Shoulder Glenosphere - [id number] Start: 08-31-2022 Kit Screw Revers e Torque Define Shoulder - [id number] Start: 08-31-2022 Screw Equinoxe 4.5mm Black 22mm Bone Kit Compression Lock Cap Reverse - [id number] Start: 08-31-2022 Screw Equinoxe 4.5mm Shirley 26mm Bone Kit Compression Lock Cap Reverse - [id number] Start: 08-31-2022 Screw Equinoxe 4.5mm Blue 30mm Bone Kit Compression Lock Cap Reverse - [id number] Start: 08-31-2022 Clinical Notes 05-17-2010 to 11-14-2024 Telephone Encounter - Lonnie Barba, NANCY - 03/12/2024 1:37 PM ESTTelephone Encounter - Lonnie Barba PSS - 03/12/2024 1:37 PM ESTTelephone Encounter - Brandi Carbajal - 03/11/2024 4:38 PM EST Note Date & Type Note Facility 11-14-2024 Progress note [facility] 03-12-2024 Telephone encounter Note CD READY FOR INSPECTING AND TESTING LEAD HAND AT [facility] Pt knows [facility] 03-12-2024 Miscellaneous Notes CD READY FOR INSPECTING AND TESTING LEAD HAND AT [facility] Pt knows Patient is requesting disc and reports of 03/04/24 CT chest and 11/25/24 CT chest. 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 OK to leave a detailed VM on cell phone [phone]. documented in this encounter [facility] 03-11-2024 Telephone encounter Note Patient is requesting disc and reports of 03/04/24 CT chest and 11/25/24 CT chest. 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 OK to leave a detailed VM on cell phone [phone]. [facility] 03-11-2024 Telephone encounter Note Spoke to Maddison - identifed by name and number. Told her results of chest CT. I have rec'd repeat CT scan in 6-12 months as per radiological recommendations. She states that she has noted a dry cough for years. I have recommended that she return to her PCP for possible workup. Patient acknowledges above. [facility] 03-11-2024 Miscellaneous Notes Spoke to Maddison - identifed by name and number. Told her results of chest CT. I have rec'd repeat CT scan in 6-12 months as per radiological recommendations. She states that she has noted a dry cough for years. I have recommended that she return to her PCP for possible workup. Patient acknowledges above. documented in this encounter [facility] 03-04-2024 History of Present illness Narrative Radiology [...] PATIENT PRESENTS WITH AN IMPLANTABLE OR ATTACHED PAPER MILL SUPERINTENDENT: No RADIOLOGY DEPARTMENT: CT; Exam(s) Completed: Chest PERIPHERAL IV DATA: Not applicable SIGNED BY: RT Velia(Pat) March 04, 2024 10:31 AM documented in this encounter [facility] 03-04-2024 Note HNO ID: [id number] Author: SADIE MENCHACA RT(Pat) Service: ? Author Type: Stripper And Taper Type: Progress Notes Filed: 03/04/2024 10:32 Note [...] PATIENT PRESENTS WITH AN IMPLANTABLE OR ATTACHED PAPER MILL SUPERINTENDENT: No RADIOLOGY DEPARTMENT: CT; Exam(s) Completed: Chest PERIPHERAL IV DATA: Not applicable SIGNED BY: RT Velia(R) March 04, 2024 10:31 AM [facility] 12-03-2023 History of Present illness Narrative Maddison [...] Macrocrystalline], Mobic [Meloxicam], Morphine, Nitrofurantoin, Penicillins, Prednisone, Kkqmeku-Wgy-Xpl Reductase Inhibitors, Sulfa (Sulfonamide Antibiotics), Zinc, and [...] Kamila Mercado MD documented in this encounter [facility] 12-03-2023 Note HNO ID: [id number] Author: KAMILA MERCADO MD Service: ? Author [...] mm nodule posterior left lower lobe (7:118) nt It is recommended by the radiologist for [...] Macrocrystalline], Mobic [Meloxicam], Morphine, Nitrofurantoin, Penicillins, Prednisone, Zhcpqrn-Tgg-Fah Reductase Inhibitors, Sulfa (Sulfonamide Antibiotics), Zinc, and [...] the patient has (more content not included)... [facility] 11-26-2023 History of Present illness Narrative Radiology [...] PATIENT PRESENTS WITH AN IMPLANTABLE OR ATTACHED PAPER MILL SUPERINTENDENT: No RADIOLOGY DEPARTMENT: CT; Exam(s) Completed: Chest PERIPHERAL IV DATA: Not applicable SIGNED BY: RT Velia(Pat) November 26, 2023 1:11 PM documented in this encounter [facility] 11-26-2023 Note HNO ID: [id number] Author: SADIE MENCHACA RT(Pat) Service: ? Author Type: Stripper And Taper Type: Progress Notes Filed: 11/26/2023 13:11 Note [...] PATIENT PRESENTS WITH AN IMPLANTABLE OR ATTACHED PAPER MILL SUPERINTENDENT: No RADIOLOGY DEPARTMENT: CT; Exam(s) Completed: Chest PERIPHERAL IV DATA: Not applicable SIGNED BY: RT Velia(R) November 26, 2023 1:11 PM [facility] 11-12-2023 Note HNO ID: [id number] Author: KAMILA MERCADO MD Service: ? Author [...] she was seen by plastic surgery at [facility]. Recommendations were made for pain management [...] Macrocrystalline], Mobic [Meloxicam], Morphine, Nitrofurantoin, Penicillins, Prednisone, Yfddcnb-Uzb-Ded Reductase Inhibitors, Sulfa (Sulfonamide Antibiotics), Zinc, and Zostavax [Zoster Vaccine Live (Pf)] The review of systems data was entered by the nurse and reviewed by wi Nursing Notes: Raquel Wadsworth LPN 11/12/2023 4:01 [...] blood. Gastrointestinal: The (more content not included)... [facility] 11-12-2023 History of Present illness Narrative Maddison [...] she was seen by plastic surgery at [facility]. Recommendations were made for pain management [...] Macrocrystalline], Mobic [Meloxicam], Morphine, Nitrofurantoin, Penicillins, Prednisone, Myunndl-Nwd-Jqj Reductase Inhibitors, Sulfa (Sulfonamide Antibiotics), Zinc, and Zostavax [Zoster Vaccine Live (Pf)] The review of systems data was entered by the nurse and reviewed by wi Nursing Notes: Raquel Wadsworth LPN 11/12/2023 4:01 [...] records from other medical facilities such as [facility], [id number] patient care, obtaining oral medical history from the patient in this encounter, performing a medically appropriate examination, counseling and educating the patient/family/caregiver, and ordering and/or scheduling of medications/tests/procedures, and completing appropriate medical documentation. Kamila Mercado MD documented in this encounter [facility] 11-12-2023 Nurse Note REVIEW OF SYSTEMS: General: [...] 2013 Last Colonoscopy: 2022 Raquel Wadsworth LPN [facility] 11-12-2023 Nurse Note REVIEW OF SYSTEMS: General: [...] Raquel Wadsworth LPN documented in this encounter [facility] 12-15-2022 Nurse Note Pt arrived in phase 2 fully awake in the supine position. Denies pain/ nausea. SR up x 2, call light in reach. Mariaelena Vazquez RN documented in this encounter [facility] 12-15-2022 History and physical note UPDATED PROCEDURAL [...] Macrocrystalline], Mobic [Meloxicam], Morphine, Nitrofurantoin, Penicillins, Prednisone, Tkiwzrb-Ejd-Brv Reductase Inhibitors, Sulfa (Sulfonamide Antibiotics), Zinc, and Zostavax [Zoster Vaccine Live (Pf)] PERSONAL HISTORY: SOCIAL HISTORY Social History Tobacco Use Smoking status: Never Smokeless tobacco: Never Vaping Use Vaping Use: Never used Substance Use Topics Alcohol use: Never Drug use: Never FAMILY HISTORY FAMILY HISTORY Problem Relation Age of Onset Colon Cancer Mother Hypertension Mother Diabetes Mother Lipids Mother Heart Father [place] age 55 Lipids Brother Diabetes Sister Diabetes Brother Heart Brother The review of systems data was entered by the nurse and reviewed by wi Nursing Notes: Shasha Gilbert RN 11/20/2022 10:37 [...] Macrocrystalline], Mobic [Meloxicam], Morphine, Nitrofurantoin, Penicillins, Prednisone, Elafetb-Lnp-Kuy Reductase Inhibitors, Sulfa (Sulfonamide Antibiotics), Zinc, and Zostavax [Zoster Vaccine Live (Pf)] PERSONAL HISTORY: SOCIAL HISTORY Social History Tobacco Use Smoking status: Never Smokeless tobacco: Never Vaping Use Vaping Use: Never used Substance Use Topics Alcohol use: Never Drug use: Never FAMILY HISTORY FAMILY HISTORY Problem Relation Age of Onset Colon Cancer Mother Hypertension Mother Diabetes Mother Lipids Mother Heart Father [place] age 55 Lipids Brother Diabetes Sister Diabetes Brother Heart Brother The review of systems data was entered by the nurse and reviewed by wi Nursing Notes: Shasha Gilbert RN 11/20/2022 10:37 [...] Kamila Mercado MD documented in this encounter [facility] 11-27-2022 History of Present illness Narrative Maddison [...] Patient acknowledges above. documented in this encounter [facility] 11-27-2022 Instructions Kristyn Manning LPN - 11/27/2022 [...] from our office. documented in this encounter [facility] 11-27-2022 Nurse Note UNIVERSAL PROTOCOL / SAFETY [...] Kristyn Manning LPN documented in this encounter [facility] 11-24-2022 Miscellaneous Notes Images from the original [...] she needs the antibiotic called into [facility] in [place]. Advised patient that she should contact her orthopaedic surgeon, but she states Dr. Mercado gave me the antibiotics for my skin excision next week, so why would she not give me the antibiotic for my colonoscopy? Please update the patient. A detailed message may be left on her voicemail if she does not answer. Dali Bobo RN documented in this encounter [facility] 08-31-2022 Note HNO ID: [id number] Author: Jay Gamez APRN.EXECUTIVE LEGAL SECRETARY Service: ? Author Type: Nurse Gear Lapper Type: Anesthesia Procedure Notes Filed: 08/31/2022 8:18 AM Note Text: ANESTHESIOLOGY PROCEDURE NOTE Airway General Information Procedure Start Time/Medication Administration: 08/31/2022 7:48 AM Procedure End Time: 08/31/2022 7:48 AM Patient location during procedure: OR Timeout Performed Pre-procedure: timeout performed Consent Obtained: Yes Patient identity confirmed: arm band Staffing EXECUTIVE LEGAL SECRETARY: Jay Gamez APRN.EXECUTIVE LEGAL SECRETARY Performed by: MADELINE Indications and Patient Condition [...] - 08/31/2022 7:48:00 AM SIGNATURE: Jay Gamez APRN.CRNA PATIENT NAME: Maddison Rivera DATE: August 31, 2022 TIME: 8:17 AM CSN: [id number] [facility] 08-31-2022 Note HNO ID: [id number] Author: Caity Krueger RN Service: Nursing Author Type: Registered Nurse Type: Nursing Progress Note Filed: 08/31/2022 7:31 AM Note Text: Dr. Banuelso did left interscalene block with ultrasound from [id number]. [facility] 08-31-2022 Note HNO ID: [id number] Author: Christiano Banuelos MD Service: Anesthesiology Author [...] August 31, 2022 TIME: 7:03 AM CSN: [id number] [facility] 08-30-2022 Note HNO ID: [id number] Author: Gale Trivedi RN Service: ? Author [...] Ensure Pre-Surgery (given by CHEYANNE or your Dr.), fruit juice without pulp (apple/cranberry), clear tea, [...] directed. Bring copy of Living Will/Power of Geophysical Operator. Do not smoke or chew. If you [...] the Surgery Center. UPON ARRIVAL: Access to [facility] ([facility]) is located on [address] [employer] parking is available for your convenience from [...] instructions for the morning of your procedure. [facility] 08-10-2022 Note HNO ID: [id number] Author: Loraine Claros APRN.CNP Service: ? Author Type: Nurse Practitioner Type: Progress Notes Filed: 08/10/2022 11:56 AM Note Text: Summary: medical clearance Medical clearance received from [facility]. [facility] 08-07-2022 Note HNO ID: [id number] Author: Syl Tapia MD Service: ? Author Type: Physician Type: Progress Notes Filed: 08/08/2022 3:18 PM Note Text: PACC Consult SERVICE DATE: 08/07/2022 SERVICE TIME: 2:03 PM PRIMARY CARE PHYSICIAN: Jesus Peters MD REASON FOR VISIT: Maddison Rivera is a 76 year old female who is scheduled for L Reverse [facility] - 08/31/[address] the [address] [...] Abnormality of Gait Subjective CHIEF COMPLAINT: L Rena BRAXTON - Chris - 08/31/22 76 yo woman, non-smoker. PMHx: Left Brest Ca/Mastectomy - delayed emergence GA, HTN, osteonecrosis of left shoulder, HLP (Repatha), thyroid disease. 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 Also see old fracture proximal humurus. Don't have Chris's notes to review. She was seen by [employer] [facility] 05/10. PAST MEDICAL HISTORY Diagnosis Date [...] Mother Diabetes Mother Lipids Mother Heart Father [place] age 55 Lipids Brother Diabetes Sister Diabetes [...] Hives Prednisone Other: See Comments PH SYCOTIC Kfqlwsd-Ybg-Kjw Red* Other: See Comments Myalgias Sulfa (Sulfonamide [...] 11.5 - 15.5 (more content not included)... [facility] 08-07-2022 Note HNO ID: [id number] Author: Syl Tapia MD Service: ? Author [...] instructions for the morning of your procedure. [facility] 08-07-2022 Note HNO ID: [id number] Author: Syl Tapia MD Service: ? Author Type: Physician Type: Progress Notes Filed: 08/08/2022 10:29 AM Note Text: Jeison Perez - 08/31/22 76 yo woman, non-smoker. PMHx: Left Brest Ca/Mastectomy - delayed emergence GA, HTN, osteonecrosis of left shoulder, HLP (Repatha), thyroid disease. 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 Also see old fracture proximal humurus. Don't have Chris's notes to review. She was seen by [employer] [facility] 05/10. [facility] 08-07-2022 History of Present illness Narrative PACC [...] Subjective CHIEF COMPLAINT: L Reverse TSA - Chris - 08/31/22 76 yo woman, non-smoker. PMHx: Left Brest Ca/Mastectomy - delayed emergence GA, HTN, osteonecrosis of left shoulder, HLP (Repatha), thyroid disease. 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 Also see old fracture proximal humurus. Don't have Chris's notes to review. She was seen by [employer] [facility] 05/10. PAST MEDICAL HISTORY Diagnosis Date [...] Mother Diabetes Mother Lipids Mother Heart Father [place] age 55 Lipids Brother Diabetes Sister Diabetes [...] Hives Prednisone Other: See Comments PH SYCOTIC Ltzjhmr-Prv-Qbl Red* Other: See Comments Myalgias Sulfa (Sulfonamide [...] [facility] or Procedure: Answer: [facility] ECG COMPLETE Standing Status: Future Number [...] for the morning of your procedure. Jeison BRAXTON - Chris - 08/31/22 76 yo woman, non-smoker. PMHx: Left Brest Ca/Mastectomy - delayed emergence GA, HTN, osteonecrosis of left shoulder, HLP (Repatha), thyroid disease. 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 Also see old fracture proximal humurus. Don't have Chris's notes to review. She was seen by [employer] [facility] 05/10. documented in this encounter [facility] 08-07-2022 Instructions Syl Tapia MD - 08/07/2022 [...] of your procedure. documented in this encounter [facility] 07-01-2021 Miscellaneous Notes Patient notified and verbalized understanding. Patient states she has not been called about an appt with Pain Management. Number given for Doctor Referral line, . Dalton Villa LPN ----- Message from Irasema Vela MD sent at 06/28/2021 12:39 PM EDT ----- Osteopenia on bmd - continue ca - vit d documented in this encounter [facility] 05-31-2021 Note HNO ID: [id number] Author: Irasema Vela MD Service: ? Author Type: Physician Type: Progress Notes Filed: 05/31/2021 1:00 PM Note Text: VIRTUAL VISIT PROGRESS NOTE This is a virtual visit using [employer] video visit. It required patient-provider interaction for [...] x 30 years. She was diagnosed with 2000 Dr. Benavidez with lupus (rash on face) [...] Mother - Lipids Mother - Heart Father [place] age 55 - Lipids Brother - Diabetes [...] not taking: Reported on 07/29/2018 ) - [place]-3 Fatty Acids (FISH OIL) 500 mg Cap [...] - Penicillins Hives - Prednisone Unknown - Psldrzg-Gvs-Pmb Red* Other: See Comments Myalgias - Sulfa (Sulfonamide * Other: See Comme (more content not included)... [facility] 05-31-2021 Instructions Irasema Vela MD - 05/31/2021 12:37 PM EDT documented in this encounter [facility] 05-31-2021 History of Present illness Narrative VIRTUAL VISIT PROGRESS NOTE This is a virtual visit using [employer] video visit. It required patient-provider interaction for [...] x 30 years. She was diagnosed with [address] Dr[address] Benavidez with lupus (rash on face) [...] Mother Diabetes Mother Lipids Mother Heart Father [place] age 55 Lipids Brother Diabetes Sister Diabetes [...] (Patient not taking: Reported on 07/29/2018 ) [place]-3 Fatty Acids (FISH OIL) 500 mg Cap [...] Vomiting Nitrofurantoin Vomiting Penicillins Hives Prednisone Unknown Qbfggvj-Xcf-Ssh Red* Other: See Comments Myalgias Sulfa (Sulfonamide [...] difficulties. Irasema Vela MD [facility] on 05/31/21 CONSULT TO PAIN MGT No orders of the defined types were placed in this encounter. Platform used - 20 min on telephone documented in this encounter [facility] 05-13-2021 Miscellaneous Notes Patient called to make sure her BMD results were faxed to the office. Patient would like to know if she can have the results over the phone. Dalton Villa LPN documented in this encounter [facility] 05-06-2021 Note HNO ID: [id number] Author: RT Dinorah(R) Service: Radiology Author Type: [...] PERIPHERAL IV DATA: Not applicable SIGNED BY: Kyra Rome, RT(R) May 06, 2021 10:44 AM [facility] 05-06-2021 Note HNO ID: [id number] Author: Irasema Vela MD Service: ? Author [...] x 30 years. She was diagnosed with [address] Dr[address] Benavidez with lupus (rash on face) [...] not taking: Reported on 07/29/2018 ) - [place]-3 Fatty Acids (FISH OIL) 500 mg Cap [...] taking: Reported on (more content not included)... [facility] 05-17-2010 History of Past i llness Narrative Problem Noted Date Resolved Date Pain in limb 05/17/2010 11/08/2011 documented as of this encounter (statuses as of 05/13/2021) [facility] History of Past illness Narrative* Problem Noted Date Resolved Date Pain in limb 05/17/2010 11/08/2011 documented as of this encounter (statuses as of 05/31/2021) [facility] History of Past illness Narrative* Problem Noted Date Resolved Date Pain in limb 05/17/2010 11/08/2011 documented as of this encounter (statuses as of 07/01/2021) [place] [address] History of Past illness Narrative* Problem Noted Date Resolved Date Pain in limb 05/17/2010 11/08/2011 documented as of this encounter (statuses as of 07/26/2022) [address] History of Past illness Narrative* Problem Noted Date Resolved Date Pain in limb 05/17/2010 11/08/2011 documented as of this encounter (statuses as of 08/08/2022) [place] [address] History of Past illness Narrative* Problem Noted Date Resolved Date Pain in limb 05/17/2010 11/08/2011 documented as of this encounter (statuses as of 08/08/2022) [address]2011 History of Past illness Narrative* Problem Noted Date Resolved Date Pain in limb 05/17/2010 11/08/2011 documented as of this encounter (statuses as of 08/18/2022) [place] [address] History of Past illness Narrative* Problem Noted Date Resolved Date Pain in limb 05/17/2010 11/08/2011 documented as of this encounter (statuses as of 08/25/2022) [address]2011 History of Past illness Narrative* Problem Noted Date Diagnosed Date Resolved Date Pain in limb 05/17/2010 11/08/2011 documented as of this encounter (statuses as of 11/25/2022) [place] [address] History of Past illness Narrative* Problem Noted Date Diagnosed Date Resolved Date Pain in limb 05/17/2010 11/08/2011 documented as of this encounter (statuses as of 11/29/2022) [place] [address] History of Past illness Narrative* Problem Noted Date Diagnosed Date Resolved Date Pain in limb 05/17/2010 11/08/2011 documented as of this encounter (statuses as of 12/23/2022) [facility] Diagnosis Onset Date Resolution Status Essential hypertension acute Diastolic dysfunction chroni c Hyperlipidemia chronic [facility] Work Phone: Evaluation note* Diagnosis Osteoporosis, unspecified osteoporosis type, unspecified pathological fracture presence- Primary Primary osteoarthritis involving multiple joints [facility] Diagnosis Onset Date Resolution Status Essential hypertension acute Hyperlipidemia chronic [facility] Work Phone: Evaluation noteNo assessment information available [facility] Work Phone: Evaluation note* Diagnosis Acquired absence of breast and absent nipple, unspecified laterality- Primary 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, left shoulder (HCC) documented in this encounter [facility] note* Diagnosis Hypertension, unspecified type 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, left shoulder (HCC) [facility] Diagnosis Preop cardiovascular exam- Primary Pre-operative cardiovascular examination Preop testing Preoperative examination, unspecified Hypertension, unspecified type 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, left shoulder (HCC) [facility]* Diagnosis Pigmented skin lesion of uncertain behavior of lower extremity- Primary documented in this encounter [facility] note* Diagnosis Screening for colon cancer- Primary Special screening for malignant neoplasms, colon documented in this encounter [facility] note* Diagnosis Onset Date Resolution Status Osteoarthritis of right knee acute Right knee pain acute [facility] Work Phone: Evaluation note* Diagnosis Vitamin deficiency- Primary Unspecified vitamin deficiency VITAMIN D DEFICIENCY NOS Unspecified vitamin D deficiency PURE HYPERCHOLESTEROLEM Pure hypercholesterolemia HYPERTENSION NOS Unspecified essential hypertension Breast screening, unspecified Myalgia Mylagia and myositis, unspecified Mass of left chest wall- Primary History of left breast cancer Status post mastectomy, bilateral [facility]* Diagnosis Vitamin deficiency- Primary Unspecified vitamin deficiency VITAMIN D DEFICIENCY NOS Unspecified vitamin D deficiency PURE HYPERCHOLESTEROLEM Pure hypercholesterolemia HYPERTENSION NOS Unspecified essential hypertension Breast screening, unspecified Myalgia Mylagia and myositis, unspecified History of left breast cancer [facility] Diagnosis Vitamin deficiency- Primary Unspecified vitamin deficiency VITAMIN D DEFICIENCY NOS Unspecified vitamin D deficiency PURE HYPERCHOLESTEROLEM Pure hypercholesterolemia HYPERTENSION NOS Unspecified essential hypertension Breast screening, unspecified Myalgia Mylagia and myositis, unspecified Lung nodules- Primary Other nonspecific abnormal finding of lung field Abnormal chest CT Nonspecific (abnormal) findings on radiological and other examination of other intrathoracic organs [facility] Diagnosis Vitamin deficiency- Primary Unspecified vitamin deficiency VITAMIN D DEFICIENCY NOS Unspecified vitamin D deficiency PURE HYPERCHOLESTEROLEM Pure hypercholesterolemia HYPERTENSION NOS Unspecified essential hypertension Breast screening, unspecified Myalgia Mylagia and myositis, unspecified Lung nodules Other nonspecific abnormal finding of lung field [facility] Diagnosis Onset Date Resolution Status Admit Date Essential hypertension acute Se ptember 2024 8:26am Hyperlipidemia chronic November 14, 2024 8:26am [facility] Work Phone: Progress note Author Leah Pearce [facility] Note Date/Time November 14, 2024 9:26am [facility]. 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 [phone] Option #4. Plan Details Additional Comments: Patient [...] updated, as necessary. Follow Up: 4-6 weeks (FISHER TRAP/PA) Coding Level of Care Code Off vis,est,level 4 Diagnoses Essential hypertension I10 Hyperlipidemia E78.5 Coding Level of Care Code Off vis,est,level 4 Diagnoses Essential hypertension I10 Hyperlipidemia E78.5 Clinical Quality Measures Falls Risk Screening/Assistive Devices Have you fallen in the past year?: No Cardiac Ejection fraction %: 65 11/14/24 1637 <Electronically signed by Leah Pearce FISHER TRAP FISHER TRAP-C> Date _ Leah Pearce FISHER TRAP FISHER TRAP-C Cosigner Signature: Date (if applicable) CC: ~ [facility] Work Phone: [facility] (narrative)* Outpatient Procedure (Routine) - Closed Specialty Diagnoses / Procedures Referred By Contac t Referred To [facility] Diagnoses Preop testing Procedures ECG COMPLETE ECG ROUTINE ECG W/LEAST 12 LDS W/I&R Nayeli Perez MD [address] [place] [address] [facility] [place] [phone] Referral ID Status Reason Start Date Expiration Date V isits Requested Visits Authorized [id number] Closed Auto-Generate d Referral 08/07/2022 02/18/2023 1 1 [facility] for referral (narrative)* Outpatient Procedure (Routine) - Closed Specialty Diagnoses / Procedures Referred By Contac t Referred To Contact [facility] Diagnoses Screening for colon cancer Procedures COLONOSCOPY SCREENING COLONOSCOPY FLX DX W/COLLJ SPEC WHEN Kamila Sanchez MD [address] [place] [address] [facility] [address] [address] Referral ID Status Reason Start Date Expiration Date V isits Requested Visits Authorized [id number] Closed Auto-Generate d Referral 11/20/2022 11/21/2023 1 1 [facility] for referral (narrative)No reason for [facility] Reason for visit Narrative* Outpatient Procedure (Routine) - Closed Specialty Diagnoses / Procedures Referred By Contac t Referred [facility] Diagnoses Preop testing Procedures ECG COMPLETE ECG ROUTINE ECG W/LEAST 12 LDS W/I&R Nayeli Perez MD [address] [place] [address] [facility] [address] [place] [address] Referral ID Status Reason Start Date Expiration Date V isits Requested Visits Authorized [id number] Closed Auto-Generate d Referral 08/07/2022 02/18/2023 1 1 [facility] Outpatient Procedure (Routine) - Closed Specialty Diagnoses / Procedures Referred By Contonesimo rossi Referred To Contact [facility] Diagnoses Screening for colon cancer Procedures COLONOSCOPY SCREENING COLONOSCOPY FLX DX W/COLLJ SPEC WHEN Kamila Sanchez MD [address] [place] [address] [facility] [address] [place] [address] Referral ID Status Reason Start Date Expiration Date V isits Requested Visits Authorized [id number] Closed Auto-Generate d Referral 11/20/2022 11/21/2023 1 1 [facility] Advance Directives No Advanced Directives Records FoundDocuments on File Type Date Recorded 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 Expl anation Advance Directive(s) Advance Directive Response Recorded Date/ Time Advance Directives No December 23, 2015 12:44pm Living Will Yes February 09 9:55am Power of Geophysical Operator Yes February 09, 2021 9:55am Documents on File Type Date Recorded 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 Operator Expl anation Advance Directive(s) Advance Directive Response Recorded Date/ Time Advance Directives No December 23, 2015 11:44am Living Will Yes February 09 8:55am Power of Geophysical Operator Yes February 09, 2021 8:55am Latest Code [...] Admit Date HTN: last ov Nov 2021 [employer] (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 ) November 14, 2024 8:26am Reason for Visit Admit Date Essential hypertension November 14, 2 025 8:26am Hyperlipidemia November 14, 2024 8:26am Family [...] CONSULT TO PAIN MGT Irasema Vela MD [address] [address] Referral ID Status Reason Start Date Expiration Date Visits Requested Visits Authorized [id number] Ref Not Required PCP Requested Referral 05/31/2021 08/29/2021 3 3 Specialty Diagnoses / Procedures Referred By Contac t Referred To Contact PATIENT SERVICES Diagnoses Acquired absence of breast and absent nipple, unspecified laterality Procedures BREAST PROSTHESIS, MASTECTOMY BRA BREAST PROSTHESIS, MASTECTOMY BRA Cchs, Provider NON-STAFF PROVIDER Patient Services [facility] [address] [place] [address] Referral ID Status Reason Start Date Expiration Date Visits Requested Visits Authorized [id number] Pending Review Auto-Generat ed Referral 07/25/2022 07/26/2023 1 1 Specialty Diagnoses / Procedures Referred By Contac t Referred To Contact PATIENT SERVICES Diagnoses Acquired absence of breast and absent nipple, unspecified laterality Procedures BREAST PROSTHESIS, SILICONE BREAST PROSTHESIS, SILICONE Cchs, Provider NON-STAFF PROVIDER Patient Services [facility] [address] [place] [address] Referral ID Status Reason Start Date Expiration Date Visits Requested Visits Authorized [id number] Pending Review Auto-Generat ed Referral 07/25/2022 07/26/2023 1 1 Referral ID Status Reason Start Date Expiration Date Visits Requested Visits Authorized [id number] Pending Review Auto-Generat ed Referral 07/25/2022 07/26/2023 1 1 Specialty Diagnoses / Procedures Referred By Contac t Referred To Contact CT IMAGING Diagnoses Sarcoidosis of lung (HCC) Procedures CT CHEST WO IVCON DIAGNOSTIC COMPUTED TOMOGRAPHY THORAX W/O CNTRST Kamila Mercado MD [address] [place] [address] [place] [address] Referral ID Status Reason Start Date Expiration Date Visits Requested Visits Authorized [id number] Authorized Auto-Generat ed Referral 11/12/2023 12/11/2024 1 1 Specialty Diagnoses / Procedures Referred By Contac t Referred To Contact CT IMAGING Diagnoses Mass of left chest wall Procedures CT CHEST W IVCON DIAGNOSTIC COMPUTED TOMOGRAPHY THORAX W/CONTRAST Kamila Mercado MD [address] [place] [address] [place] [address] Referral ID Status Reason Start Date Expiration Date Visits Requested Visits Authorized [id number] New Request Auto-Generat ed Referral 11/12/2023 12/11/2024 1 1 Specialty Diagnoses / Procedures Referred By Contac t Referred To Contact CT IMAGING Diagnoses Lung nodules Procedures CT CHEST WO IVCON DIAGNOSTIC COMPUTED TOMOGRAPHY THORAX W/O Kamila Smith MD [address] [place] [address] [place] [address] Referral ID Status Reason Start Date Expiration Date Visits Requested Visits Authorized [id number] Authorized Auto-Generat ed Referral 03/04/2024 01/01/2025 1 [...] or prosecute any alcohol or drug abuse patient.[facility] the event this information is protected by the Federal Confidentiality of Alcohol and Drug Abuse Patient Records regulations: The Federal rules restrict any use of the information to criminally investigate or prosecute any alcohol or drug abuse patient.[facility] the event this information is protected by the Federal Confidentiality of Alcohol and Drug Abuse Patient Records regulations: The Federal rules restrict any use of the information to criminally investigate or prosecute any alcohol or drug abuse patient.[facility] the event this information is protected by the Federal Confidentiality of Alcohol and Drug Abuse Patient Records regulations: The Federal rules restrict any use of the information to criminally investigate or prosecute any alcohol or drug abuse patient.[facility] the event this information is protected by the Federal Confidentiality of Alcohol and Drug Abuse Patient Records regulations: The Federal rules restrict any use of the information to criminally investigate or prosecute any alcohol or drug abuse patient.[facility] the event this information is protected by the Federal Confidentiality of Alcohol and Drug Abuse Patient Records regulations: The Federal rules restrict any use of the information to criminally investigate or prosecute any alcohol or drug abuse patient.[facility] the event this information is protected by the Federal Confidentiality of Alcohol and Drug Abuse Patient Records regulations: The Federal rules restrict any use of the information to criminally investigate or prosecute any alcohol or drug abuse patient.[facility] HospitalIn the event this information is protected by the Federal Confidentiality of Alcohol and Drug Abuse Patient Records regulations: The Federal rules restrict any use of the information to criminally investigate or prosecute any alcohol or drug abuse patient.[facility] the event this information is protected by the Federal Confidentiality of Alcohol and Drug Abuse Patient Records regulations: The Federal rules restrict any use of the information to criminally investigate or prosecute any alcohol or drug abuse patient.[facility] the event this information is protected by the Federal Confidentiality of Alcohol and Drug Abuse Patient Records regulations: The Federal rules restrict any use of the information to criminally investigate or prosecute any alcohol or drug abuse patient.[facility] the event this information is protected by the Federal Confidentiality of Alcohol and Drug Abuse Patient Records regulations: The Federal rules restrict any use of the information to criminally investigate or prosecute any alcohol or drug abuse patient.[facility] the event this information is protected by the Federal Confidentiality of Alcohol and Drug Abuse Patient Records regulations: The Federal rules restrict any use of the information to criminally investigate or prosecute any alcohol or drug abuse patient.[facility] the event this information is protected by the Federal Confidentiality of Alcohol and Drug Abuse Patient Records regulations: The Federal rules restrict any use of the information to criminally investigate or prosecute any alcohol or drug abuse patient.[facility] the event this information is protected by the Federal Confidentiality of Alcohol and Drug Abuse Patient Records regulations: The Federal rules restrict any use of the information to criminally investigate or prosecute any alcohol or drug abuse patient.[facility]In the event this information is protected by the Federal Confidentiality of Alcohol and Drug Abuse Patient Records regulations: The Federal rules restrict any use of the information to criminally investigate or prosecute any alcohol or drug abuse patient.[facility] the event this information is protected by the Federal Confidentiality of Alcohol and Drug Abuse Patient Records regulations: The Federal rules restrict any use of the information to criminally investigate or prosecute any alcohol or drug abuse patient.[facility] the event this information is protected by the Federal Confidentiality of Alcohol and Drug Abuse Patient Records regulations: The Federal rules restrict any use of the information to criminally investigate or prosecute any alcohol or drug abuse patient.[facility] Reason for Visit (unrecogniz ed section and [...] THORAX W/O Kamila Smith MD [address] [place] [address] [place] [id number] Referral ID Status Reason Start Date Expiration Date V isits Requested Visits Authorized [id number] Closed Auto-Generate d Referral 11/12/2023 12/11/2024 1 [address] Reason Comments Follow Up Ct scan 11/26/23, Specialty Diagnoses / Procedures Referred By Contac t Referred To Contact CT IMAGING Diagnoses Lung nodules Procedures CT CHEST WO IVCON DIAGNOSTIC COMPUTED TOMOGRAPHY THORAX W/O Kamila Smith MD [address] [place] [address] [place] [address] Referral ID Status Reason Start Date Expiration Date V isits Requested Visits Authorized [id number] Closed Auto-Generate d Referral 03/04/2024 01/01/2025 1 1 Reason Comments Release Of Medical Records Imaging Care Teams (unrecognized sec tion and content) Millinery Blocker Relationship Specialty Start Date End Date Jesus Peters MD [address] [place] [address] [address] [place] [address] PCP - General Family Practice 03/26/18 Millinery Blocker Relationship Specialty Start Date End Date Jesus Peters MD [address] [place] [address] [address] [place], [place] [id number] PCP - General Family Practice 03/26/18 Team [...] Provi leonie, Attending Provider, Referring Provider Active Millinery Blocker Relationship Specialty Start Date End Date Jesus Peters MD [address] [place] [address] [address] [place], [place] [id number] PCP - General Family Medicine 03/26/18 Millinery Blocker Relationship Specialty Start Date End Date Jesus Peters MD [address] [place] [address] [address] [place], [place] [id number] PCP - General Family Medicine 03/26/18 Millinery Blocker Relationship Specialty Start Date End Date Jesus Peters MD [address] [place] [address] [address] [place] [address] PCP - General Family Medicine 03/26/18 Millinery Blocker Relationship Specialty Start Date End Date Jesus Peters MD [address] [facility] [address] [place] [address] PCP - General Family Medicine 03/26/18 Team Status: Inactive Member Role Status Dates Dr. Jesus Peters MD Primary Care Provider, Attending Provider Active Team Status: Active Member Role Status Dates Dr. Jesus Peters MD Primary Care Provider Active Dr. Nayeli Perez MD Attending Provider, Referring Pr ovider Active CHANDANA PACE Active Millinery Blocker Relationship Specialty Start Date End Date Jesus Peters MD [address] [place] [address] [address] [place] [address] PCP - General Family Medicine 03/26/18 Millinery Blocker Relationship Specialty Start Date End Date Jesus Peters MD [address] [place] [address] [address] [place] [address] PCP - General Family Medicine 03/26/18 Millinery Blocker Relationship Specialty Start Date End Date Jesus Peters MD [address] [place] [address] [address] [place] [address] PCP - General Family Medicine 03/26/18 Team [...] ARTEMIO WOODSON Attending Provider, Referring Provider A ctive ARTEMIO WOODSON Active Team Status: Inactive Member Role Status [...] ARTEMIO WOODSON Attending Provider, Referring Provider A ctive ARTEMIO WOODSON Active Millinery Blocker Relationship Specialty Start Date End Date Jesus Peters MD [address] [facility] [address] [place] [address] PCP - General Family Medicine 03/26/18 Millinery Blocker Relationship Specialty Start Date End Date Jesus Peters MD [address] [facility] [address] [place] [address] PCP - General Family Medicine 03/26/18 Millinery Blocker Relationship Specialty Start Date End Date Jesus Peters MD [address] [facility] [address] [place] [address] PCP - General Family Medicine 03/26/18 Millinery Blocker Relationship Specialty Start Date End Date Jesus Peters MD [address] [facility] [address] [place] [address] PCP - General Family Medicine 03/26/18 Millinery Blocker Relationship Specialty Start Date End Date Jesus Peters MD [address] [facility] [address] [place] [address] PCP - General Family Medicine 03/26/18 Millinery Blocker Relationship Specialty Start Date End Date Jesus Peters MD [address] [facility] [address] [place] [address] PCP - General Family Medicine 03/26/18 Team [...] 2024 End: November 14, 2024 Leah Pearce NP, [employer] [employer] Attending physician Active Start: November 14, 2024 [...] section and content) DATE CREATED AUTHOR 07/03/2021 [facility] DATE CREATED AUTHOR AUTHOR'S ORGANIZ ATION 08/31/2022 [facility] DATE CREATED AUTHOR AUTHOR'S ORGANIZ ATION 05/10/2024 [facility] DATE CREATED AUTHOR AUTHOR'S ORGANIZ ATION 12/29/2024 [facility] FOR RECORDS PERTAINING TO PATIENTS WHO ARE [...] BE BASED ON THE PRIMARY CLINICAL RECORDS. [employer] provides no warranty or guarantee of the accuracy or completeness of information in this document.
== END | disposition home or self-care (01) ==
LOC: LAB 08:42
PROVIDERS: PCP Family Medicine; Referring Provider Family Medicine; Visit Provider Family Medicine
DX: E03.9 Hypothyroidism, unspecified (principal)
CPT/HCPCS: 36415; 84443

== ENCOUNTER → 2025-02-10 | Outpatient (CLI) | payer MEDICARE, SELFPAY ==
[2025-02-10 14:10] LABS: Free T3 2.2 pg/mL (2.18-3.98)
[2025-02-10 14:29] LABS: Cholesterol 272 mg/dL (<=200); Low Density Lipoprotein Calc. 198 mg/dL; Triglycerides 118 mg/dL; Very Low Density Lipoprotein 24 mg/dL (5-40); cholesterol:hdl ratio screen 5.11
[2025-02-10 14:31] LABS: AST(SGOT) 26 U/L (<=31); Alanine Aminotransfer ALT/SGPT 14 U/L (<=34); Albumin, Serum 4.2 g/dL (3.4-4.8); Alkaline Phosphatase 110 U/L (35-104); Anion Gap 12 (7-18); BUN 21 mg/dL (4-19); BUN/Creat Ratio 18.6 RATIO (10-20); Calcium,Total 9.9 mg/dL (7.6-11.0); Carbon Dioxide 25.2 mmol/L (20.0-29.0); Chloride 102 mmol/L (96-106); Globulin 3.2 g/dL (2.2-4.2); Glucose 123 mg/dL (70-99); Potassium 4.5 mmol/L (3.5-5.1)
== END | disposition home or self-care (01) ==
PROVIDERS: PCP Family Medicine; Referring Provider Family Medicine; Visit Provider Family Medicine
DX: R03.0 Elevated blood-pressure reading, without diagnosis of hypertension (principal); E78.5 Hyperlipidemia, unspecified
CPT/HCPCS: 36415; 80053; 80061; 84439; 84443; 84481